=== PATIENT | male | born 1960 | race Caucasian/White ===

== ENCOUNTER 2017-06-09 20:10 | Emergency (ER) | payer MEDICAID, OTHER ==
[~2017-06-09] VITALS: Ht 160 cm; Wt 70.0 kg
[2017-06-09 20:11] VITALS: BP 99/62; PULSE 61; RESP 16; TEMP 98; O2SAT 96
--- NOTE | 2017-06-09 20:38 | PD ---
HPI Chief Complaint: Altered Mental Status Time Seen by Provider: 20:26 Travel History International Travel<30 days: No Contact w/Intl Traveler<30days: No Traveled to known affect area: No History of Present Illness HPI This is a 56-year-old male who presents with his daughter for evaluation of behavioral disturbance. She reports that he has a history of dementia, bipolar disorder, hepatitis C, coronary artery disease, seizures, CVA. She reports that for the past several hours the patient has been acting combative and saying rude things, falling asleep inappropriately. She reports that he has had similar episodes of behavioral disturbance multiple times in the past, previously she would bring him to hospitals in [facility] when he had similar outbursts however recently they relocated from [facility] to [place]. She is unaware of any illicit drug or alcohol use on the part of the patient. She is uncertain whether or not he has been faithful with his medication regimen. The medications that she is aware of him being prescribed are BuSpar, Seroquel, trazodone, baclofen as well as an unknown seizure medication and an unknown blood pressure medication. [facility] History is limited to the above information as the patient is generally uncooperative and verbally abusive. PFSH Social History Tobacco Use: Yes Allergies-Medications (Allergen,Severity, Reaction): Coded Allergies: acetaminophen (Verified Adverse Reaction, Unknown, LIVER, 06/09/17) Reported Meds & Prescriptions Reported Meds & Active Scripts Active Reported Omeprazole 20 Mg Tab 20 Mg PO DAILY Simvastatin 40 Mg Tab 40 Mg PO HS [hydroyxine pamoate] 25 PO HS Lisinopril 10 Mg Tab 10 Mg PO DAILY Duloxetine DR (Duloxetine HCl) 30 Mg Capdr 30 Mg PO DAILY Buspirone (Buspirone HCl) 10 Mg Tab 20 Mg PO TID Baclofen 10 Mg Tab 10 Mg PO QID Seroquel (Quetiapine Fumarate) 400 Mg Tab 400 Mg PO HS Atenolol 25 Mg Tab 25 Mg PO DAILY Trazodone (Trazodone HCl) 100 Mg Tablet 100 Mg PO HS Review of Systems ROS Limitations: Uncooperative, Refused Except as stated in HPI: all other systems reviewed are Neg Physical Exam Exam Limitations: Uncooperative, Refused Narrative GENERAL: This is a somewhat disheveled-appearing male who is in no acute distress. SKIN: Warm and dry. HEAD: Atraumatic. Normocephalic. EYES: Pupils equal and round. No scleral icterus. No injection or drainage. ENT: No nasal bleeding or discharge. Mucous membranes pink and moist. NECK: Trachea midline. No JVD. CARDIOVASCULAR: Regular rate and rhythm. No murmur appreciated. RESPIRATORY: No accessory muscle use. Clear to auscultation. Breath sounds equal bilaterally. GASTROINTESTINAL: Abdomen soft, non-tender, nondistended. Hepatic and splenic margins not palpable. MUSCULOSKELETAL: No obvious deformities. No clubbing. No cyanosis. No edema. NEUROLOGICAL: Awake and alert. No obvious cranial nerve deficits. Motor grossly within normal limits. Normal speech. PSYCHIATRIC: Insight and judgment appear impaired. Data Data Last Documented VS Vital Signs Date Time Temp Pulse Resp B/P (MAP) Pulse Ox O2 Delivery O2 Flow Rate FiO2 06/09/17 21:21 66 18 130/86 (101) 96 Room Air 06/09/17 20:11 98.0 Orders Orders Complete Blood Count With Diff (06/09/17 20:33) Comprehensive Metabolic Panel (06/09/17 20:33) Iv Access Insert/Monitor (06/09/17 20:33) Drug Screen, Random Urine (06/09/17 20:33) Alcohol (Ethanol) (06/09/17 20:33) Lorazepam Inj (Ativan Inj) (06/09/17 20:45) Diphenhydramine Inj (Benadryl Inj) (06/09/17 20:45) Urinalysis - C+S If Indicated (06/09/17 23:21) Ed Discharge Order (06/10/17 06:01) Labs Laboratory Tests Test 06/09/17 21:50 White Blood Count 9.0 TH/MM3 Red Blood Count 5.75 MIL/MM3 Hemoglobin 16.9 GM/DL Hematocrit 50.6 % Mean Corpuscular Volume 87.9 FL Mean Corpuscular Hemoglobin 29.4 PG Mean Corpuscular Hemoglobin Concent 33.4 % Red Cell Distribution Width 14.8 % Platelet Count 181 TH/MM3 Mean Platelet Volume 8.6 FL Neutrophils (%) (Auto) 65.8 % Lymphocytes (%) (Auto) 21.6 % Monocytes (%) (Auto) 9.6 % Eosinophils (%) (Auto) 2.6 % Basophils (%) (Auto) 0.4 % Neutrophils # (Auto) 5.9 TH/MM3 Lymphocytes # (Auto) 1.9 TH/MM3 Monocytes # (Auto) 0.9 TH/MM3 Eosinophils # (Auto) 0.2 TH/MM3 Basophils # (Auto) 0.0 TH/MM3 CBC Comment DIFF FINAL Differential Comment Blood Urea Nitrogen 17 MG/DL Creatinine 1.25 MG/DL Random Glucose 94 MG/DL Total Protein 9.3 GM/DL Albumin 4.8 GM/DL Calcium Level 9.8 MG/DL Alkaline Phosphatase 110 U/L Aspartate Amino Transf (AST/SGOT) 42 U/L Alanine Aminotransferase (ALT/SGPT) 69 U/L Total Bilirubin 0.3 MG/DL Sodium Level 136 MEQ/L Potassium Level 4.4 MEQ/L Chloride Level 102 MEQ/L Carbon Dioxide Level 28.7 MEQ/L Anion Gap 5 MEQ/L Estimat Glomerular Filtration Rate 60 ML/MIN Ethyl Alcohol Level LESS THAN 3 MG/DL MDM Medical Decision Making Medical Screen Exam Complete: Yes Emergency Medical Condition: Yes Medical Record Reviewed: Yes Differential Diagnosis Dementia with behavioral disturbance, acute psychosis, substance induced mood disorder Narrative Course 56-year-old male with reported history of dementia presents with behavioral outbursts which started today. Plan is for basic lab work. He required the administration of Ativan and Benadryl for sedative purposes. Initially CT the brain was ordered however based on the history this appears to be more of a chronic issue and it was canceled. Mental health screening discussed with the patient. Psychiatric screen ordered. 0600: The patient is now awake, alert, answering questions appropriately and is requesting to leave. He reports that he thinks that his medications made it made him feel "loopy" last night but now they have worn off he is feeling normal and would like to leave. He remembers the events of yesterday. He remembers that his daughter dropped him off here because he was acting agitated. He attempted to call his daughter however, as it is 6 in the morning , she did not answer. The patient certainly does not meet olivares act criteria at this time and he does not want to remain here on a voluntary basis and therefore he will be discharged home. We will attempt to obtain a taxi pass for him. Diagnosis Primary Impression: Medication side effect Additional Instructions: Establish care with a local primary care physician that can help manage your medications and chronic medical conditions. Return for any emergent medical conditions. Med/Other Pt SpecificInfo: No Change to Meds Disposition: 01 DISCHARGE HOME Condition: Stable Eros Gaviria Jun 09, 2017 20:38
[2017-06-09] MEDS ORDERED: LORazepam 2 MG/ML VIAL IM ONE (20:45)
[2017-06-09] MEDS ORDERED: diphenhydrAMINE HCL 50 MG/ML VIAL IM ONE (20:45)
[2017-06-09] MEDS ORDERED: OMEP20TA93 PO (20:58)
[2017-06-09] MEDS ORDERED: SERO400T PO (20:58)
[2017-06-09] MEDS ORDERED: TRAZ100T10 PO (20:58)
[2017-06-09] MEDS ORDERED: BACL10TA PO (20:58)
[2017-06-09] MEDS ORDERED: DULO1CAP2 PO (20:58)
[2017-06-09] MEDS ORDERED: BUSP10TA PO (20:58)
[2017-06-09] MEDS ORDERED: LISI10TA3 PO (20:58)
[2017-06-09] MEDS ORDERED: ATEN25TA PO (20:58)
[2017-06-09] MEDS ORDERED: HYDROXYZINE PAMOATE PO (20:58)
[2017-06-09] MEDS ORDERED: SIMV40TA PO (20:58)
--- NOTE | 2017-06-09 21:06 | PD ---
Physical Exam Date Seen by Provider: Jun 09, 2017 Narrative This patient brought in by his daughter for acutely altered mental status and behavioral disturbance. He has a history of similar behavior in the past. He reportedly has some sort of underlying dementia. He has reportedly been verbally abusive with other staff members. Data Data Last Documented VS Vital Signs Date Time Temp Pulse Resp B/P (MAP) Pulse Ox O2 Delivery O2 Flow Rate FiO2 06/09/17 20:58 18 06/09/17 20:11 98.0 61 99/62 (74) 96 Room Air Orders Orders Ammonia (06/09/17 20:33) Complete Blood Count With Diff (06/09/17 20:33) Comprehensive Metabolic Panel (06/09/17 20:33) Urinalysis - C+S If Indicated (06/09/17 20:33) Ct Brain W/O Iv Contrast(Rout) (06/09/17 20:33) Iv Access Insert/Monitor (06/09/17 20:33) Drug Screen, Random Urine (06/09/17 20:33) Alcohol (Ethanol) (06/09/17 20:33) Lorazepam Inj (Ativan Inj) (06/09/17 20:45) Diphenhydramine Inj (Benadryl Inj) (06/09/17 20:45) MDM Supervised Visit with IGGY: Yes Narrative Course I, Dr. Juarez, have reviewed the advance practice practitioner's documentation and am in agreement, met with the patient face to face, made the diagnosis, and the medical decision making was done by me. *My assessment and Findings: Patient is lying on the stretcher with his eyes closed. He does not respond to me when I in and introduced myself to him. He is noted to be rhythmically moving his right ankle. He does not appear to be in any distress. Please see Eros Gaviria PA-C's note for results of laboratory and radiographic evaluation, ED course, final diagnosis and disposition Zenaida Juarez MD Jun 09, 2017 21:06
[2017-06-09 21:21] VITALS: BP 130/86; PULSE 66; RESP 18; O2SAT 96
[2017-06-09 22:49] LABS: AUTOMATED NEUTROPHIL # 5.9 TH/MM3 (1.8-7.7); BASOPHIL % 0.4 % (0.0-2.0); EOSINOPHIL # 0.2 TH/MM3 (0-0.4); EOSINOPHIL % 2.6 % (0.0-4.0); HEMATOCRIT 50.6 % (39.0-51.0); HEMOGLOBIN 16.9 GM/DL (13.0-17.0); LYMPH % 21.6 % (9.0-44.0); LYMPHOCYTE # 1.9 TH/MM3 (1.0-4.8); MEAN CELL VOLUME 87.9 FL (80.0-100.0); MEAN CORPUSCULAR HEMOGLOBIN 29.4 PG (27.0-34.0); MEAN CORPUSCULAR HGB CONC 33.4 % (32.0-36.0); MEAN PLATELET VOLUME 8.6 FL (7.0-11.0); MONO % 9.6 % (0.0-8.0); MONOCYTE # 0.9 TH/MM3 (0-0.9); NEUT % 65.8 % (16.0-70.0); PLATELET COUNT 181 TH/MM3 (150-450); RED BLOOD COUNT 5.75 MIL/MM3 (4.50-5.90); RED CELL DISTRIBUTION WIDTH 14.8 % (11.6-17.2)
[2017-06-09 23:16] LABS: ALBUMIN 4.8 GM/DL (3.4-5.0); ALT (GPT) 69 U/L (12-78); AST (GOT) 42 U/L (15-37); BICARBONATE 28.7 MEQ/L (21.0-32.0); BLOOD UREA NITROGEN 17 MG/DL (7-18); CALCIUM 9.8 MG/DL (8.5-10.1); CHLORIDE 102 MEQ/L (98-107); CREATININE 1.25 MG/DL (0.60-1.30); GLOMERULAR FILTRATION RATE 60 ML/MIN (>89); GLUCOSE,RANDOM 94 MG/DL (74-106); SODIUM (NA) 136 MEQ/L (136-145)
[2017-06-09 23:19] LABS: ALKALINE PHOSPHATASE 110 U/L (45-117); TOTAL BILIRUBIN ADULT 0.3 MG/DL (0.2-1.0); TOTAL PROTEIN 9.3 GM/DL (6.4-8.2)
[2017-06-12] MEDS ORDERED: VIST25CA PO (10:34)
== END 2017-06-10 06:39 | disposition home or self-care (01) ==
LOC: NEPD 20:10
DX: F03.91 Unspecified dementia, unspecified severity, with behavioral disturbance (principal); I25.10 Atherosclerotic heart disease of native coronary artery without angina pectoris; B19.20 Unspecified viral hepatitis C without hepatic coma; F31.9 Bipolar disorder, unspecified; Z72.0 Tobacco use; Z79.899 Other long term (current) drug therapy
CPT/HCPCS: 80053; 80307; 85025; 96372; 99284; J1200; J2060

== ENCOUNTER 2017-07-04 12:13 | Observation (INO) | payer MEDICAID ==
[~2017-07-04] VITALS: Ht 175.3 cm; Wt 80.0 kg
[2017-07-04] VITALS (7 sets, daily range): BP systolic 114–163; BP diastolic 70–105; PULSE 60–70; RESP 12–26; TEMP 97.6–97.9; O2SAT 95–99
[~2017-07-04 12:13] MED LIST: ATEN25TA PO; BACL10TA PO; BUSP10TA PO; DULO1CAP2 PO; LISI10TA3 PO; OMEP20TA93 PO; SERO400T PO; SIMV40TA PO; TRAZ100T10 PO; VIST25CA PO
[2017-07-04] MEDS ORDERED: SODIUM CHLORIDE 0.9% FLUSH 10 ML FLUSH IV FLUSH PRN (14:15)
--- NOTE | 2017-07-04 14:25 | PD ---
HPI Chief Complaint: Altered Mental Status Time Seen by Provider: 14:06 Travel History International Travel<30 days: No Contact w/Intl Traveler<30days: No Traveled to known affect area: No History of Present Illness HPI Patient is a 56-year-old male presenting to emergency department via [facility] for evaluation of altered mental status. Per family members report patient was arranging lawn furniture randomly. Patient is a poor historian, per medical records patient has a baseline dementia, he was here in May for behavioral disturbances. There are no family members present to obtain a more thorough history from. Patient appears startled and confused. PFSH Past Medical History Alzheimer's Disease: Yes Bipolar Disorder: Yes Anxiety: Yes Depression: Yes Cardiovascular Problems: Yes Cerebrovascular Accident: Yes Hepatitis: Yes (hep c) Hypertension: Yes Psychiatric: Yes Seizures: Yes Past Surgical History Cardiac Surgery: Yes Coronary Artery Bypass Graft: Yes (double bypass) Social History Alcohol Use: No Tobacco Use: Yes Substance Use: No Allergies-Medications (Allergen,Severity, Reaction): Coded Allergies: acetaminophen (Verified Adverse Reaction, Unknown, LIVER, 07/04/17) Reported Meds & Prescriptions Reported Meds & Active Scripts Active Reported Proair Hfa 8.5 GM Inh (Albuterol Sulfate) 90 Mcg/Act Aer 2 Puff INH Q4HR PRN 108 mcg/actuation Vistaril (Hydroxyzine Pamoate) 25 Mg Cap 50 Mg PO HS Omeprazole 20 Mg Tab 20 Mg PO DAILY Simvastatin 40 Mg Tab 40 Mg PO HS Lisinopril 10 Mg Tab 10 Mg PO DAILY Duloxetine DR (Duloxetine HCl) 30 Mg Capdr 30 Mg PO DAILY Buspirone (Buspirone HCl) 10 Mg Tab 20 Mg PO TID Baclofen 10 Mg Tab 10 Mg PO QID Seroquel (Quetiapine Fumarate) 400 Mg Tab 400 Mg PO HS Atenolol 25 Mg Tab 25 Mg PO DAILY Trazodone (Trazodone HCl) 100 Mg Tablet 100 Mg PO HS Review of Systems ROS Limitations: Poor Historian Except as stated in HPI: all other systems reviewed are Neg Physical Exam Narrative GENERAL: Well-developed, well-nourished, alert male. SKIN: Warm and dry. HEAD: Atraumatic. Normocephalic. EYES: Pupils equal and round. No scleral icterus. No injection or drainage. ENT: No nasal bleeding or discharge. Mucous membranes pink and moist. NECK: Trachea midline. No JVD. CARDIOVASCULAR: Regular rate and rhythm. RESPIRATORY: No accessory muscle use. Clear to auscultation. Breath sounds equal bilaterally. GASTROINTESTINAL: Abdomen soft, non-tender, nondistended. Hepatic and splenic margins not palpable. MUSCULOSKELETAL: Extremities without clubbing, cyanosis, or edema. No obvious deformities. NEUROLOGICAL: Awake and alert. No obvious cranial nerve deficits. Motor grossly within normal limits. Five out of 5 muscle strength in the arms and legs. Normal speech. PSYCHIATRIC: Appropriate mood and affect; insight and judgment normal. Data Data Last Documented VS Vital Signs Date Time Temp Pulse Resp B/P (MAP) Pulse Ox O2 Delivery O2 Flow Rate FiO2 07/04/17 16:30 60 12 117/70 (86) 98 Room Air 07/04/17 12:42 97.9 Orders Orders Urinalysis - C+S If Indicated (07/04/17 13:08) Drug Screen, Random Urine (07/04/17 13:08) Cbc No Diff, Includes Plts (07/04/17 14:15) Comprehensive Metabolic Panel (07/04/17 14:15) Ammonia (07/04/17 14:15) Thyroid Stimulating Hormone (07/04/17 14:15) Ct Brain W/O Iv Contrast(Rout) (07/04/17 14:15) Blood Glucose (07/04/17 14:15) Ecg Monitoring (07/04/17 14:15) Iv Access Insert/Monitor (07/04/17 14:15) Oximetry (07/04/17 14:15) Sodium Chloride 0.9% Flush (Ns Flush) (07/04/17 14:15) Admit Order (Ed Use Only) (07/04/17 17:03) Labs Laboratory Tests Test 07/04/17 14:50 07/04/17 15:20 White Blood Count 7.3 TH/MM3 Red Blood Count 5.12 MIL/MM3 Hemoglobin 15.5 GM/DL Hematocrit 44.5 % Mean Corpuscular Volume 86.8 FL Mean Corpuscular Hemoglobin 30.2 PG Mean Corpuscular Hemoglobin Concent 34.8 % Red Cell Distribution Width 14.5 % Platelet Count 188 TH/MM3 Mean Platelet Volume 8.3 FL Blood Urea Nitrogen 14 MG/DL Creatinine 1.09 MG/DL Random Glucose 86 MG/DL Total Protein 8.6 GM/DL Albumin 4.5 GM/DL Calcium Level 9.4 MG/DL Alkaline Phosphatase 117 U/L Aspartate Amino Transf (AST/SGOT) 38 U/L Alanine Aminotransferase (ALT/SGPT) 67 U/L Total Bilirubin 0.4 MG/DL Sodium Level 137 MEQ/L Potassium Level 4.4 MEQ/L Chloride Level 104 MEQ/L Carbon Dioxide Level 25.3 MEQ/L Anion Gap 8 MEQ/L Estimat Glomerular Filtration Rate 70 ML/MIN Ammonia 33 MCMOL/L Thyroid Stimulating Hormone 3rd Gen 1.220 uIU/ML Urine Color LIGHT-YELLOW Urine Turbidity CLEAR Urine pH 6.0 Urine Specific [place] 1.009 Urine Protein TRACE mg/dL Urine Glucose (UA) NEG mg/dL Urine Ketones NEG mg/dL Urine Occult Blood NEG Urine Nitrite NEG Urine Bilirubin NEG Urine Urobilinogen LESS THAN 2.0 MG/DL Urine Leukocyte Esterase NEG Urine RBC LESS THAN 1 /hpf Urine WBC LESS THAN 1 /hpf Microscopic Urinalysis Comment CULT NOT INDICATED Urine Opiates Screen NEG Urine Barbiturates Screen NEG Urine Amphetamines Screen NEG Urine Benzodiazepines Screen NEG Urine Cocaine Screen NEG Urine Cannabinoids Screen NEG MDM Medical Decision Making Medical Screen Exam Complete: Yes Emergency Medical Condition: Yes Medical Record Reviewed: Yes Interpretation(s) Last Impressions Head CT 07/04/17 1415 Signed Impressions: Service Date/Time: June 15:44 - CONCLUSION: Normal examination except for 3.8 cm area of encephalomalacia in the right parietal region. Connor Pollock MD Laboratory Tests Test 07/04/17 14:50 07/04/17 15:20 White Blood Count 7.3 TH/MM3 Red Blood Count 5.12 MIL/MM3 Hemoglobin 15.5 GM/DL Hematocrit 44.5 % Mean Corpuscular Volume 86.8 FL Mean Corpuscular Hemoglobin 30.2 PG Mean Corpuscular Hemoglobin Concent 34.8 % Red Cell Distribution Width 14.5 % Platelet Count 188 TH/MM3 Mean Platelet Volume 8.3 FL Blood Urea Nitrogen 14 MG/DL Creatinine 1.09 MG/DL Random Glucose 86 MG/DL Total Protein 8.6 GM/DL Albumin 4.5 GM/DL Calcium Level 9.4 MG/DL Alkaline Phosphatase 117 U/L Aspartate Amino Transf (AST/SGOT) 38 U/L Alanine Aminotransferase (ALT/SGPT) 67 U/L Total Bilirubin 0.4 MG/DL Sodium Level 137 MEQ/L Potassium Level 4.4 MEQ/L Chloride Level 104 MEQ/L Carbon Dioxide Level 25.3 MEQ/L Anion Gap 8 MEQ/L Estimat Glomerular Filtration Rate 70 ML/MIN Ammonia 33 MCMOL/L Thyroid Stimulating Hormone 3rd Gen 1.220 uIU/ML Urine Color LIGHT-YELLOW Urine Turbidity CLEAR Urine pH 6.0 Urine Specific [place] 1.009 Urine Protein TRACE mg/dL Urine Glucose (UA) NEG mg/dL Urine Ketones NEG mg/dL Urine Occult Blood NEG Urine Nitrite NEG Urine Bilirubin NEG Urine Urobilinogen LESS THAN 2.0 MG/DL Urine Leukocyte Esterase NEG Urine RBC LESS THAN 1 /hpf Urine WBC LESS THAN 1 /hpf Microscopic Urinalysis Comment CULT NOT INDICATED Urine Opiates Screen NEG Urine Barbiturates Screen NEG Urine Amphetamines Screen NEG Urine Benzodiazepines Screen NEG Urine Cocaine Screen NEG Urine Cannabinoids Screen NEG Vital Signs Date Time Temp Pulse Resp B/P (MAP) Pulse Ox O2 Delivery O2 Flow Rate FiO2 07/04/17 12:42 97.9 70 18 146/85 (105) 98 Differential Diagnosis Psychosis versus dementia versus metabolic abdomen only versus substance abuse versus other Narrative Course Patient is a 56-year-old male presenting to emergency for evaluation of altered mental status. No family is present to provide historical details. Patient's vital signs are stable, he appears fidgety. He knows what day it is and that he is in the hospital. Labs and imaging ordered and pending. Medical records reviewed. A 16 Kinyarwanda urinary catheter was placed under sterile conditions. 1200 cc of clear yellow urine drained. Urine sent for urinalysis and urine drug screen. Urine drug screen is negative, CBC is unremarkable, chemistry with no acute findings. Ammonia 33, TSH 1.22. Urinalysis is unremarkable. CT scan of the brain is normal except for 3.8 cm area of encephalomalacia in the right parietal region. In an attempt to send patient home with a urinary leg bag, he was educated on what care a urinary leg bag would entail. Patient was unable to repeat or verbalized understanding of instructions. Attempting to contact the patient's family. At this time patient is unsafe for discharge and will be admitted under observation. Discussed with Dr. Dahl who accepted admission. Admit orders placed. Patient has a sitter at bedside for safety. Diagnosis Primary Impression: Urinary retention Additional Impression: Cognitive deficits Admitting Information Admitting Physician Requests: Observation Condition: Stable Kaylah Carbajal Jul 04, 2017 14:25
[2017-07-04 15:08] LABS: HEMATOCRIT 44.5 % (39.0-51.0); HEMOGLOBIN 15.5 GM/DL (13.0-17.0); MEAN CELL VOLUME 86.8 FL (80.0-100.0); MEAN CORPUSCULAR HEMOGLOBIN 30.2 PG (27.0-34.0); MEAN CORPUSCULAR HGB CONC 34.8 % (32.0-36.0); MEAN PLATELET VOLUME 8.3 FL (7.0-11.0); PLATELET COUNT 188 TH/MM3 (150-450); RED BLOOD COUNT 5.12 MIL/MM3 (4.50-5.90); RED CELL DISTRIBUTION WIDTH 14.5 % (11.6-17.2); WHITE BLOOD COUNT 7.3 TH/MM3 (4.0-11.0)
[2017-07-04 15:31] LABS: ALBUMIN 4.5 GM/DL (3.4-5.0); AST (GOT) 38 U/L (15-37); BICARBONATE 25.3 MEQ/L (21.0-32.0); BLOOD UREA NITROGEN 14 MG/DL (7-18); CALCIUM 9.4 MG/DL (8.5-10.1); CHLORIDE 104 MEQ/L (98-107); CREATININE 1.09 MG/DL (0.60-1.30); GLOMERULAR FILTRATION RATE 70 ML/MIN (>89); GLUCOSE,RANDOM 86 MG/DL (74-106); SODIUM (NA) 137 MEQ/L (136-145)
[2017-07-04 15:35] LABS: ALKALINE PHOSPHATASE 117 U/L (45-117); ALT (GPT) 67 U/L (12-78); TOTAL BILIRUBIN ADULT 0.4 MG/DL (0.2-1.0); TOTAL PROTEIN 8.6 GM/DL (6.4-8.2)
[2017-07-04 15:53] LABS: BILIRUBIN, URINE NEG (NEG); BLOOD, URINE NEG (NEG); GLUCOSE,URINE NEG (NEG); KETONE, URINE NEG (NEG); NITRITE,URINE NEG (NEG); URINE COLOR LIGHT-YELLOW (YELLW/STRAW); URINE LEUKOCYTE ESTERASE NEG (NEG)
[2017-07-04] MEDS ORDERED: ALBUAER3 INH (16:03)
--- NOTE | 2017-07-04 16:03 | RADRPT ---
EXAM DATE/TIME: 07/04/2017 15:44 [facility] COMPARISON: No previous studies available for comparison. INDICATIONS : Confusion RADIATION DOSE: 56.35 CTDIvol (mGy) MEDICAL HISTORY : Alzheimer's Seizures. Cardiovascular disease SURGICAL HISTORY : None. ENCOUNTER: Initial ACUITY: 1 day PAIN SCALE: Non-responsive LOCATION: cranial TECHNIQUE: Multiple contiguous axial images were obtained of the head. Using automated exposure control and adj ustment of the mA and/or kV according to patient size, radiation dose was kept as low as reasonably a chievable to obtain optimal diagnostic quality images. DICOM format image data is available electro nically for review and comparison. FINDINGS: CEREBRUM: Area of encephalomalacia in the high right parietal region. The ventricles are normal for age. No evidence of midline shift, mass lesion, hemorrhage or acute infarction. No extra-axial fluid collect ions are seen. POSTERIOR FOSSA: The cerebellum and brainstem are intact. The 4th ventricle is midline. The cerebellopontine angle i s unremarkable. EXTRACRANIAL: The visualized portion of the orbits is intact. SKULL: The calvaria is intact. No evidence of skull fracture. CONCLUSION: Normal examination except for 3.8 cm area of encephalomalacia in the right parietal region. Connor Pollock MD on July 04, 2017 at 15:59 Board Certified Radiologist. This report was verified electronically.
--- NOTE | 2017-07-04 16:36 | PD ---
Data Data Last Documented VS Vital Signs Date Time Temp Pulse Resp B/P (MAP) Pulse Ox O2 Delivery O2 Flow Rate FiO2 07/04/17 16:30 60 12 117/70 (86) 98 Room Air 07/04/17 12:42 97.9 Orders Orders Urinalysis - C+S If Indicated (07/04/17 13:08) Drug Screen, Random Urine (07/04/17 13:08) Cbc No Diff, Includes Plts (07/04/17 14:15) Comprehensive Metabolic Panel (07/04/17 14:15) Ammonia (07/04/17 14:15) Thyroid Stimulating Hormone (07/04/17 14:15) Ct Brain W/O Iv Contrast(Rout) (07/04/17 14:15) Blood Glucose (07/04/17 14:15) Ecg Monitoring (07/04/17 14:15) Iv Access Insert/Monitor (07/04/17 14:15) Oximetry (07/04/17 14:15) Sodium Chloride 0.9% Flush (Ns Flush) (07/04/17 14:15) Admit Order (Ed Use Only) (07/04/17 17:03) Labs Laboratory Tests Test 07/04/17 14:50 07/04/17 15:20 White Blood Count 7.3 TH/MM3 Red Blood Count 5.12 MIL/MM3 Hemoglobin 15.5 GM/DL Hematocrit 44.5 % Mean Corpuscular Volume 86.8 FL Mean Corpuscular Hemoglobin 30.2 PG Mean Corpuscular Hemoglobin Concent 34.8 % Red Cell Distribution Width 14.5 % Platelet Count 188 TH/MM3 Mean Platelet Volume 8.3 FL Blood Urea Nitrogen 14 MG/DL Creatinine 1.09 MG/DL Random Glucose 86 MG/DL Total Protein 8.6 GM/DL Albumin 4.5 GM/DL Calcium Level 9.4 MG/DL Alkaline Phosphatase 117 U/L Aspartate Amino Transf (AST/SGOT) 38 U/L Alanine Aminotransferase (ALT/SGPT) 67 U/L Total Bilirubin 0.4 MG/DL Sodium Level 137 MEQ/L Potassium Level 4.4 MEQ/L Chloride Level 104 MEQ/L Carbon Dioxide Level 25.3 MEQ/L Anion Gap 8 MEQ/L Estimat Glomerular Filtration Rate 70 ML/MIN Ammonia 33 MCMOL/L Vitamin B12 Level 387 PG/ML Thyroid Stimulating Hormone 3rd Gen 1.220 uIU/ML Urine Color LIGHT-YELLOW Urine Turbidity CLEAR Urine pH 6.0 Urine Specific [place] 1.009 Urine Protein TRACE mg/dL Urine Glucose (UA) NEG mg/dL Urine Ketones NEG mg/dL Urine Occult Blood NEG Urine Nitrite NEG Urine Bilirubin NEG Urine Urobilinogen LESS THAN 2.0 MG/DL Urine Leukocyte Esterase NEG Urine RBC LESS THAN 1 /hpf Urine WBC LESS THAN 1 /hpf Microscopic Urinalysis Comment CULT NOT INDICATED Urine Opiates Screen NEG Urine Barbiturates Screen NEG Urine Amphetamines Screen NEG Urine Benzodiazepines Screen NEG Urine Cocaine Screen NEG Urine Cannabinoids Screen NEG MDM Medical Record Reviewed: Yes Supervised Visit with IGGY: Yes Narrative Course I, Dr. Witt, have reviewed the advance practice practitioner's documentation and am in agreement, met with the patient face to face, made the diagnosis, and the medical decision making was done by me. *My assessment and Findings: CBC & BMP Diagram 07/04/17 14:50 Total Protein 8.6 H, Albumin 4.5, Calcium Level 9.4, Alkaline Phosphatase 117, Aspartate Amino Transf (AST/SGOT) 38 H, Alanine Aminotransferase (ALT/SGPT) 67, Total Bilirubin 0.4 The patient had urinary retention which was unexpected based on the presentation. A Shirley catheter placed. Due to altered mental status of unknown etiology the patient will be kept here for further diagnostic evaluation. Keith Witt MD Jul 04, 2017 16:36
[2017-07-04] MEDS ORDERED: ONDANSETRON HCL 4 MG/2 ML VIAL IVP PRN (17:15)
[2017-07-04] MEDS ORDERED: SENNOSIDES 8.6 MG TAB PO PRN (17:15)
[2017-07-04] MEDS ORDERED: NALOXONE HCL 0.4 MG/ML AMP IV PUSH PRN (17:15)
[2017-07-04] MEDS ORDERED: LACTULOSE SYRUP 20 GM/30 ML CUP PO PRN (17:15)
[2017-07-04] MEDS ORDERED: BISACODYL 10 MG SUPP RECTAL PRN (17:15)
[2017-07-04] MEDS ORDERED: MAGNESIUM HYDROXIDE SUSP 30 ML CUP PO PRN (17:15)
[2017-07-04] MEDS ORDERED: RESP: ALBUTEROL 2.5 MG/IPRATROPIUM 0.5 MG NEB (PRN) NEB (17:45)
--- NOTE | 2017-07-04 17:56 | HHI.HP ---
HPI Service [facility] Hospitalists Primary Care Physician Unknown Admission Diagnosis Urinary retention, ams Diagnoses: Chief Complaint: Altered mental status Travel History International Travel<30 Days: No Contact w/Intl Traveler <30 Da: No Traveled to Known Affected Are: No History of Present Illness This is a 56-year-old male with past medical history significant for coronary artery disease status post previous CABG, hypertension, hepatitis C, dementia, bipolar disorder, seizure disorder, history of CVA who presents to [facility] ED with altered mental status. Patient is an extremely poor historian and is oriented 1 and is unable to give any meaningful history and no family is at the bedside, therefore history is obtained from review of electronic medical record and discussion with the ED physician. Reportedly, family members were concerned about patient's erratic behavior. In the ED, patient's workup was essentially unremarkable. CT of the head was obtained revealing normal examination except for 3.8 cm area of encephalomalacia in the right parietal region. Laboratory studies were unimpressive. UA is unremarkable. Tox screen was negative. Per the ED physician, Hargrove catheter was placed and 1200 cc of urine was returned. Review of Systems Attempted but unable to complete 10 point review of systems due to patient's cognitive impairment Past Family Social History Past Medical History Dementia Bipolar disorder Hepatitis C Coronary artery disease Seizures History of CVA Past Surgical History CABGx2 Reported Medications Proair Hfa 8.5 GM Inh (Albuterol Sulfate) 90 Mcg/Act Aer 2 Puff INH Q4HR PRN 108 mcg/actuation Vistaril (Hydroxyzine Pamoate) 25 Mg Cap 50 Mg PO HS Omeprazole 20 Mg Tab 20 Mg PO DAILY Simvastatin 40 Mg Tab 40 Mg PO HS Lisinopril 10 Mg Tab 10 Mg PO DAILY Duloxetine DR (Duloxetine HCl) 30 Mg Capdr 30 Mg PO DAILY Buspirone (Buspirone HCl) 10 Mg Tab 20 Mg PO TID Baclofen 10 Mg Tab 10 Mg PO QID Seroquel (Quetiapine Fumarate) 400 Mg Tab 400 Mg PO HS Atenolol 25 Mg Tab 25 Mg PO DAILY Trazodone (Trazodone HCl) 100 Mg Tablet 100 Mg PO HS Allergies: Coded Allergies: acetaminophen (Verified Adverse Reaction, Unknown, LIVER, 07/04/17) Active Ordered Medications Current Medications Medications (Trade) Dose Ordered Sig/Ria Route Start Time Stop Time Status Last Admin (NS Flush) 2 ml UNSCH PRN IV FLUSH 07/04/17 14:15 (Zofran Inj) 4 mg Q6H PRN IVP 07/04/17 17:15 UNV (Narcan Inj) 0.4 mg UNSCH PRN IV PUSH 07/04/17 17:15 UNV (Brooke-Colace) 1 tab BID PO 07/04/17 21:00 UNV (Milk Of Magnesia Liq) 30 ml Q12H PRN PO 07/04/17 17:15 UNV (Senokot) 17.2 mg Q12H PRN PO 07/04/17 17:15 UNV (Dulcolax Supp) 10 mg DAILY PRN RECTAL 07/04/17 17:15 UNV (Lactulose Liq) 30 ml DAILY PRN PO 07/04/17 17:15 UNV (Tenormin) 25 mg DAILY PO 07/05/17 09:00 UNV (Cymbalta Dr) 30 mg DAILY PO 07/05/17 09:00 UNV (Prinivil) 10 mg DAILY PO 07/05/17 09:00 UNV Non-Formulary Medication 20 mg DAILY PO 07/05/17 09:00 UNV Non-Formulary Medication 40 mg HS PO 07/04/17 21:00 UNV Family History Unable to obtain Social History Per review of the medical record, patient has a history of tobacco use. Unable to verify with patient due to cognitive impairment. Able to obtain alcohol or substance use history. Physical Exam Vital Signs Vital Signs Date Time Temp Pulse Resp B/P (MAP) Pulse Ox O2 Delivery O2 Flow Rate FiO2 07/04/17 16:30 60 12 117/70 (86) 98 Room Air 07/04/17 16:15 66 14 133/85 (101) 99 Room Air 07/04/17 14:34 67 12 163/105 (124) 99 Room Air 07/04/17 14:33 98 Room Air 07/04/17 12:42 97.9 70 18 146/85 (105) 98 Physical Exam GENERAL: This is a well-nourished, well-developed disheveled male patient, in no apparent distress. Sitter at the bedside. Patient is awake and alert. Unable to give any meaningful history. Oriented to self only. SKIN: No rashes, ecchymoses or lesions. Cool and dry. HEAD: Atraumatic. Normocephalic. No temporal or scalp tenderness. EYES: Pupils equal round and reactive. Extraocular motions intact. No scleral icterus. No injection or drainage. ENT: Nose without bleeding or purulent drainage. Throat without erythema, tonsillar hypertrophy or exudate. Uvula midline. Airway patent. NECK: Trachea midline. No lymphadenopathy. Supple, nontender, no meningeal signs. CARDIOVASCULAR: Regular rate and rhythm without murmurs, gallops, or rubs. RESPIRATORY: Poor inspiratory effort. Clear to auscultation. Breath sounds equal bilaterally. No wheezes, rales, or rhonchi. GASTROINTESTINAL: Abdomen soft, non-tender, nondistended. No hepato-splenomegaly , or palpable masses. No guarding. GENITOURINARY: Hargrove catheter in place. MUSCULOSKELETAL: Extremities without clubbing, cyanosis, or edema. No joint tenderness, effusion, or edema noted. No calf tenderness. NEUROLOGICAL: Awake and alert. Able to follow simple commands. Oriented to self only. Able to move all extremities spontaneously. Motor and sensory grossly within normal limits. Five out of 5 muscle strength in all muscle groups. [place] speech. PSYCHIATRIC: Inappropriate insight and judgement Laboratory Laboratory Tests Test 07/04/17 14:50 07/04/17 15:20 White Blood Count 7.3 Red Blood Count 5.12 Hemoglobin 15.5 Hematocrit 44.5 Mean Corpuscular Volume 86.8 Mean Corpuscular Hemoglobin 30.2 Mean Corpuscular Hemoglobin Concent 34.8 Red Cell Distribution Width 14.5 Platelet Count 188 Mean Platelet Volume 8.3 Blood Urea Nitrogen 14 Creatinine 1.09 Random Glucose 86 Total Protein 8.6 Albumin 4.5 Calcium Level 9.4 Alkaline Phosphatase 117 Aspartate Amino Transf (AST/SGOT) 38 Alanine Aminotransferase (ALT/SGPT) 67 Total Bilirubin 0.4 Sodium Level 137 Potassium Level 4.4 Chloride Level 104 Carbon Dioxide Level 25.3 Anion Gap 8 Estimat Glomerular Filtration Rate 70 Ammonia 33 Thyroid Stimulating Hormone 3rd Gen 1.220 Urine Color LIGHT-YELLOW Urine Turbidity CLEAR Urine pH 6.0 Urine Specific [place] 1.009 Urine Protein TRACE Urine Glucose (UA) NEG Urine Ketones NEG Urine Occult Blood NEG Urine Nitrite NEG Urine Bilirubin NEG Urine Urobilinogen LESS THAN 2.0 Urine Leukocyte Esterase NEG Urine RBC LESS THAN 1 Urine WBC LESS THAN 1 Microscopic Urinalysis Comment CULT NOT INDICATED Urine Opiates Screen NEG Urine Barbiturates Screen NEG Urine Amphetamines Screen NEG Urine Benzodiazepines Screen NEG Urine Cocaine Screen NEG Urine Cannabinoids Screen NEG Result Diagram: 07/04/17 1450 07/04/17 1450 Imaging Last Impressions Head CT 07/04/17 1415 Signed Impressions: Service Date/Time: June 15:44 - CONCLUSION: Normal examination except for 3.8 cm area of encephalomalacia in the right parietal region. MD Bobby Hurt VTE Risk Assessment Bobby VTE Risk Assessment: No/Low Risk (score <= 1) Bobby Risk Assessment Model Point Value = 1 Point Value = 2 Point Value = 3 Point Value = 5 Age 41-60 Minor surgery BMI > 25 kg/m2 Swollen legs Varicose veins or History of unexplained or recurrent spontaneous Oral contraceptives or hormone replacement Sepsis (< 1 month) Serious lung disease, including pneumonia (< 1 month) Abnormal pulmonary function Acute myocardial infarction Congestive heart failure (< 1 month) History of inflammatory bowel disease Medical patient at bed rest Age 61-74 Arthroscopic surgery Major open surgery (> 45 min) Laparoscopic surgery (> 45 min) Malignancy Confined to bed (> 72 hours) Immobilizing plaster cast Central venous access Age >= 75 History of VTE Family history of VTE Factor V Leiden Prothrombin [id number] Lupus anticoagulant Anticardiolipin antibodies Elevated serum homocysteine Heparin-induced thrombocytopenia Other congenital or acquired thrombophilia Stroke (< 1 month) Elective arthroplasty Hip, pelvis, or leg fracture Acute spinal cord injury (< 1 month) Prophylaxis Regimen Total Risk Factor Score Risk Level Prophylaxis Regimen 0-1 Low Early ambulation 2 Moderate Order ONE of the following: *Sequential Compression Device (SCD) *Heparin 5000 units SQ BID 3-4 Higher Order ONE of the following medications: *Heparin 5000 units SQ TID *Enoxaparin/Lovenox 40 mg SQ daily (WT < 150 kg, CrCl > 30 mL/min) *Enoxaparin/Lovenox 30 mg SQ daily (WT < 150 kg, CrCl > 10-29 mL/min) *Enoxaparin/Lovenox 30 mg SQ BID (WT < 150 kg, CrCl > 30 mL/min) AND/OR *Sequential Compression Device (SCD) 5 or more Highest Order ONE of the following medications: *Heparin 5000 units SQ TID (Preferred with Epidurals) *Enoxaparin/Lovenox 40 mg SQ daily (WT < 150 kg, CrCl > 30 mL/min) *Enoxaparin/Lovenox 30 mg SQ daily (WT < 150 kg, CrCl > 10-29 mL/min) *Enoxaparin/Lovenox 30 mg SQ BID (WT < 150 kg, CrCl > 30 mL/min) AND *Sequential Compression Device (SCD) Assessment and Plan Assessment and Plan 56-year-old male with past medical history significant for urinary artery disease status post previous CABG, hypertension, hepatitis C, dementia, bipolar disorder, seizure disorder, history of CVA who presents to [facility] ED with altered mental status. AMS/encephalopathy History of seizure disorder History of bipolar disorder History of dementia - CT of the head revealed normal examination except for 3.8 cm area of encephalomalacia in the right parietal region, images reviewed by me - UDS negative. UA negative. CBC and chem panel essentially unremarkable - obtain CXR - Consult neurology, appreciate assistance - MRI brain - EEG study - obtain RPR and B12 level - Hold all sedating medications - Seizure and fall precautions - PT/OT eval/tx - Consult case management - sitter Questionable urinary retention - per ED physician, 1200ml urine returned after hargrove catheter placement - obtain renal US - keep hargrove for now, likely d/c after renal US results Hypertension - Controlled at present - Resume patient's home dose of lisinopril 10 mg daily, atenolol 25 mg daily CAD, hx of CABG x 2 - Patient has no cardiac complaints at present - ASA daily Hx of CVA - chronic Ongoing tobaccoism - cessation counseling - Duonebs as needed Hx of Hepatitis C - Unknown history of treatment - Hepatitis profile ordered Dyslipidemia - Resume patient on home dose of statin therapy GERD - Resume on home PPI DVT prophylaxis - Lovenox sq Discussed Condition With ED physician, patient, Dr. Dahl Attending Statement The exam, history, and the medical decision-making described in the above note were completed with the assistance of the mid-level provider. I reviewed and agree with the findings presented. I attest that I had a [id number] encounter with the patient on the same day, and personally performed and documented my assessment and findings in the medical record. Patient brought in by caregiver due to altered mental status. Patient able to tell me his name and the president is. He is unable to me location and date. He does answer questions appropriately. She was recently admitted due to altered mental status. He follows commands and no focal neurological deficits. Patient had no complaints. Caregiver unsure if patient is urinating. In the ED Hargrove catheter was placed and patient had over thousand cc of output. GENERAL: in NAD SKIN: Warm and dry. HEAD: Normocephalic. EYES: No scleral icterus. No injection or drainage. NECK: Supple, trachea midline. No JVD or lymphadenopathy. CARDIOVASCULAR: Regular rate and rhythm without murmurs, gallops, or rubs. RESPIRATORY: Breath sounds equal bilaterally. No accessory muscle use. GASTROINTESTINAL: Abdomen soft, non-tender, nondistended. NEURO AAO X 1. Patient moves all extremities grossly and sensation is intact grossly. He follows commands. Answers questions appropriately. Metabolic encephalopathy/history of seizure disorder/history of bipolar disorder /history dementia -Symptoms seems to be more due to dementia versus psychiatric disorder but will rule out any metabolic etiology. -CT scan of brain does reveal 3.8 cm area of encephalomalacia in the right parietal region. -Labs obtained which were unremarkable. We'll get a chest x-ray. Will also get MRI of the brain and EEG. Obtain RPR and vitamin B12. Also consult neurologist. Ligia Aldana Jul 04, 2017 17:56 Georgette Dahl MD Jul 04, 2017 18:55
[2017-07-04] MEDS ORDERED: SODIUM CHLOR 0.9% 1000 ML INJ 1,000 ML IV SCH (18:00)
--- NOTE | 2017-07-04 18:12 | RADRPT ---
EXAM DATE/TIME: 07/04/2017 17:45 [facility] COMPARISON: No previous studies available for comparison. INDICATIONS : Pulmonary diseaes- Urinary distention. MEDICAL HISTORY : Alzheimer's seizures. cardiovascular disease SURGICAL HISTORY : None. ENCOUNTER: Initial ACUITY: 1 day PAIN SCORE: Non-responsive. LOCATION: Bilateral chest FINDINGS: A single view of the chest demonstrates the lungs to be symmetrically aerated without evidence of mas s, infiltrate or effusion. The cardiomediastinal contours are unremarkable. Corpectomy changes are s een at the thoracolumbar junction. Median sternotomy wires noted. CONCLUSION: No acute disease. Ronak Brandt Jr., MD on July 04, 2017 at 18:10 Board Certified Radiologist. This report was verified electronically.
--- NOTE | 2017-07-04 19:19 | RADRPT ---
EXAM DATE/TIME: 07/04/2017 18:40 [facility] COMPARISON: No previous studies available for comparison. INDICATIONS : Elevated lab values. MEDICAL HISTORY : Stroke. Alzheimer's. Seizures. Hypertension. Depression. Anxiety. Hepatitis C. SURGICAL HISTORY : CABG. Back surgery. ENCOUNTER: Initial ACUITY: 1 day PAIN SCORE: 2/10 LOCATION: Bilateral flank MEASUREMENTS: RIGHT KIDNEY: 9.4 x 3.9 x 4.3 cm LEFT KIDNEY: 10.8 x 4.8 x 5.3 cm FINDINGS: RIGHT KIDNEY: Renal cortex is normal in thickness and echotexture. No hydronephrosis, stone, or mass. LEFT KIDNEY: Renal cortex is normal in thickness and echotexture. No hydronephrosis, stone, or mass. BLADDER: Totally decompressed and a Shirley balloon is present. CONCLUSION: No acute disease. Ronak Brandt Jr., MD on July 04, 2017 at 19:16 Board Certified Radiologist. This report was verified electronically.
[2017-07-04] MEDS ORDERED: ENOXAPARIN SODIUM 30 MG/0.3 ML SYRINGE SQ SCH (20:00)
[2017-07-04] MEDS ORDERED: PRAVASTATIN SOD 80 MG TAB PO SCH (21:00)
[2017-07-05] VITALS (7 sets, daily range): BP systolic 84–120; BP diastolic 51–76; PULSE 64–81; RESP 16–18; TEMP 97.4–98.5; O2SAT 95–97
[2017-07-05] MEDS ORDERED: HALOPERIDOL LACTATE 5 MG/ML AMP IM ONE (00:15)
[2017-07-05] MEDS: DOCUSATE SODIUM 50 MG/SENNA 8.6 MG TAB PO SCH ×2 (00:34→09:00)
[2017-07-05 06:10] LABS: AUTOMATED NEUTROPHIL # 6.1 TH/MM3 (1.8-7.7); BASOPHIL % 0.5 % (0.0-2.0); EOSINOPHIL # 0.1 TH/MM3 (0-0.4); EOSINOPHIL % 1.7 % (0.0-4.0); HEMATOCRIT 40.6 % (39.0-51.0); HEMOGLOBIN 13.9 GM/DL (13.0-17.0); LYMPH % 13.5 % (9.0-44.0); LYMPHOCYTE # 1.1 TH/MM3 (1.0-4.8); MEAN CELL VOLUME 87.5 FL (80.0-100.0); MEAN CORPUSCULAR HGB CONC 34.2 % (32.0-36.0); MEAN PLATELET VOLUME 9.1 FL (7.0-11.0); MONO % 8.9 % (0.0-8.0); MONOCYTE # 0.7 TH/MM3 (0-0.9); NEUT % 75.4 % (16.0-70.0); PLATELET COUNT 186 TH/MM3 (150-450); RED BLOOD COUNT 4.63 MIL/MM3 (4.50-5.90); RED CELL DISTRIBUTION WIDTH 14.5 % (11.6-17.2); WHITE BLOOD COUNT 8.1 TH/MM3 (4.0-11.0)
[2017-07-05] MEDS ORDERED: SODIUM CHLORID 0.9% 500 ML INJ 500 ML IV ONE (06:30)
[2017-07-05 06:41] LABS: ALBUMIN 3.9 GM/DL (3.4-5.0); ALKALINE PHOSPHATASE 102 U/L (45-117); ALT (GPT) 62 U/L (12-78); AST (GOT) 33 U/L (15-37); BICARBONATE 30.9 MEQ/L (21.0-32.0); BLOOD UREA NITROGEN 16 MG/DL (7-18); CALCIUM 9.8 MG/DL (8.5-10.1); CHLORIDE 103 MEQ/L (98-107); CREATININE 1.17 MG/DL (0.60-1.30); GLOMERULAR FILTRATION RATE 65 ML/MIN (>89); GLUCOSE,RANDOM 105 MG/DL (74-106); SODIUM (NA) 140 MEQ/L (136-145); TOTAL BILIRUBIN ADULT 0.3 MG/DL (0.2-1.0); TOTAL PROTEIN 7.3 GM/DL (6.4-8.2)
[2017-07-05] MEDS ORDERED: LISINOPRIL 10 MG TAB PO SCH (09:00)
[2017-07-05] MEDS ORDERED: PANTOPRAZOLE SOD 20 MG DELAYED RELEASE TAB PO SCH (09:00)
[2017-07-05] MEDS ORDERED: carBAMazepine 200 MG TAB PO SCH (09:00)
[2017-07-05] MEDS ORDERED: ASPIRIN EC 81 MG TABEC PO SCH (09:00)
[2017-07-05] MEDS ORDERED: ATENOLOL 25 MG TAB PO SCH (09:00)
[2017-07-05] MEDS ORDERED: DULoxetine HCl DR 30 MG CAP PO SCH (09:00)
[2017-07-05] MEDS ORDERED: PNEUMOCOCCAL POLYVALENT INJ 25 MCG/0.5 ML SYR IM ONE (10:00)
--- NOTE | 2017-07-05 10:18 | RADRPT ---
EXAM DATE/TIME: 07/05/2017 08:38 [facility] COMPARISON: CT BRAIN W/O CONTRAST, July 04, 2017, 15:44. INDICATIONS : Cerebrovascular accident. MEDICAL HISTORY : Hypercholesterolemia. Hypertension. Hepatitis C. Neuropathy. Cerebrovascular accident. Alzheimer's di sease. seizures. bipolar. SURGICAL HISTORY : Double bypass 2007. Right ankle surgery. Back surgery. ENCOUNTER: Initial ACUITY: 1 day PAIN SCORE: 0/10 LOCATION: Bilateral neck PEAK SYSTOLIC VELOCITIES (cm/sec): ICA/CCA RATIO: Right: 1.0 Left: 0.9 ICA: Right: 94 Left: 89 CCA: Right: 90 Left: 102 ECA: Right: 124 Left: 146 VERTEBRAL: Right: 34 antegrade Left: 40 antegrade Elevated flow velocities and ICA/CCA ratios have been found to correlate with increased degrees of vessel stenosis, calculated as percentage of diameter relative to a normal segment of distal ICA/CCA FINDINGS: RIGHT CAROTID: No significant stenosis is visualized. The waveforms are within normal limits. Minimal atherosclerot ic plaquing of the bulb and internal carotid. LEFT CAROTID: No significant stenosis is visualized. The waveforms are within normal limits. Minimal atherosclerot ic plaque in the bulb VERTEBRAL ARTERIES: Antegrade flow is seen in both vertebral arteries. MISCELLANEOUS: None. CONCLUSION: Minimal atherosclerotic changes at bilateral bulge and right internal carotid initial segment. No mariah dence anatomic or physiologic stenosis. Neville Kay MD on July 05, 2017 at 10:13 Board Certified Radiologist. This report was verified electronically.
--- NOTE | 2017-07-05 10:30 | MB ---
cc: ROSANGELA JOHNSON M.D. DATE OF CONSULTATION 07/05/2017 HISTORY OF PRESENT ILLNESS A 56-year-old right-handed man with hypertension, hypercholesterolemia, NM, CABG, one kidney (he says maybe not functioning as well), a stroke in 1999 with loss of conscious, evidently had a right carotid endarterectomy. He has had some spells of jerkiness in 2016 about every two weeks he gets dizzy with slurred speech and then he gets confused. He was brought in because he was arranging lawn furniture randomly. Per the chart he has a history of dementia. I put in a call to his daughter. Unfortunately I got no answer. I left a message. MEDICATIONS Medications at home: 1. ProAir. 2. Vistaril. 3. Omeprazole. 4. Simvastatin. 5. Lisinopril. 6. Duloxetine 30, a day. 7. BuSpar 20, t.i.d. 8. Baclofen 10, q.i.d. 9. Seroquel 400, at bedtime. 10.Atenolol. 11.Trazodone 100, at bedtime. 12.Evidently he was on Keppra at one time, not taking it because he says it was not working. PAST MEDICAL HISTORY 1. Hepatitis C. 2. Bipolar disorder. 3. Seizure disorder. 4. History of stroke. PHYSICAL EXAMINATION VITAL SIGNS: Afebrile. 71, 18, 87/51 to 114/77. NECK: No carotid bruits. There is an old well-healed right CEA scar. HEART: Regular rhythm. I do not detect a murmur. NEUROLOGIC: He is awake and alert, oriented x3. Speech is fluent. He is not aphasic. Visual tellez are full. Extraocular movements are intact without nystagmus. Face symmetric. Tongue is midline. No drift. Normal strength in upper and lower extremities bilaterally. He has a normal gait. LABORATORY CBC is normal. RPR is pending. Urine drug screen was negative. UA normal. Basic metabolic profile normal. LFTs normal. B12 normal. Thyroid normal. IMAGING CAT scan of the brain shows old right infarct. IMPRESSION AND RECOMMENDATIONS Probably having complex partial seizures. He gets aundrea vu and then gets confused. He should be on a seizure med. If the Keppra did not work well for him we could put him on Tegretol 200, b.i.d., could help with his mood somewhat, and would have to have his blood work checked as an outpatient with his regular doctor including BMP, Tegretol level, LFTs, CBC in 5 days. Will check an MRI of the brain and EEG here along with a carotid ultrasound and if those are negative he could be discharged later today. It would be good to get some contact with his family to make sure that he takes his medications properly at home. He should not be driving with a seizure but I think he should be on a seizure medicine. MD NOAM Narvaez/TESS /7:55 AM /10:06 AM
[2017-07-05 14:49] LABS: HEPATITIS A AB IGM NEGATIVE (NEGATIVE); HEPATITIS B CORE AB IGM NEGATIVE (NEGATIVE); HEPATITIS B SURFACE ANTIGEN NEGATIVE (NEGATIVE); HEPATITIS C AB IgG REACTIVE (NEGATIVE)
--- NOTE | 2017-07-05 15:17 | HHI.PR ---
Subjective Remarks Seen earlier today. Was getting EEG, returned and was seen after EEG. In nad alert and oriented x4 , no headache, new motor deficit, change in vision.Patient is feeling better and says he wants to go home says he will leave AMA as he has errands. Discussed with patient at length he however left AMA later . Objective Vitals Vital Signs Date Time Temp Pulse Resp B/P (MAP) Pulse Ox O2 Delivery O2 Flow Rate FiO2 07/05/17 12:00 97.4 71 18 84/54 (64) 95 07/05/17 10:51 95 21 07/05/17 08:00 98.5 81 17 120/76 (91) 96 07/05/17 05:06 97.9 71 17 87/51 (63) 97 07/05/17 04:01 73 07/05/17 00:26 64 07/05/17 00:17 97.8 65 16 105/52 (69) 95 07/04/17 20:51 97.6 69 16 114/77 (89) 95 07/04/17 18:35 07/04/17 17:30 66 26 114/77 (89) 97 Room Air 07/04/17 16:30 60 12 117/70 (86) 98 Room Air 07/04/17 16:15 66 14 133/85 (101) 99 Room Air I/O 07/04/17 07/04/17 07/04/17 07/05/17 07/05/17 07/05/17 07:00 15:00 23:00 07:00 15:00 23:00 Intake Total 500 ml Output Total 1100 ml 400 ml Balance -1100 ml -400 ml 500 ml Intake IV Total 500 ml Output Urine Total 1100 ml 400 ml # Voids 0 Result Diagram: 07/05/17 0503 07/05/17 0503 Imaging Last Impressions Carotid Artery Ultrasound 07/05/17 0801 Signed Impressions: Service Date/Time: Wednesday, July 05, 2017 08:38 - CONCLUSION: Minimal atherosclerotic changes at bilateral bulge and right internal carotid initial segment. No evidence anatomic or physiologic stenosis. Neville Kay MD Head CT 07/04/17 1415 Signed Impressions: Service Date/Time: June 15:44 - CONCLUSION: Normal examination except for 3.8 cm area of encephalomalacia in the right parietal region. Connor A. Sevigny, MD Renal Ultrasound 07/04/17 0000 Signed Impressions: Service Date/Time: June 18:40 - CONCLUSION: No acute disease. Ronak Brandt Jr., MD Chest X-Ray 07/04/17 0000 Signed Impressions: Service Date/Time: June 17:45 - CONCLUSION: No acute disease. Ronak Brandt Jr., MD Objective Remarks GENERAL: This is a well-nourished, well-developed disheveled male patient, in no apparent distress. Sitter at the bedside. Patient is awake and alert. Unable to give any meaningful history. Oriented to self only. CARDIOVASCULAR: Regular rate and rhythm without murmurs, gallops, or rubs. RESPIRATORY: Poor inspiratory effort. Clear to auscultation. Breath sounds equal bilaterally. No wheezes, rales, or rhonchi. GASTROINTESTINAL: Abdomen soft, non-tender, nondistended. No hepato-splenomegaly , or palpable masses. No guarding. GENITOURINARY: Hargrove catheter in place. MUSCULOSKELETAL: Extremities without clubbing, cyanosis, or edema. No joint tenderness, effusion, or edema noted. No calf tenderness. NEUROLOGICAL: Awake and alert x4 . follows commands. Motor and sensory grossly within normal limits. Five out of 5 muscle strength in all muscle groups. Normal speech. A/P Assessment and Plan 56-year-old male with past medical history significant for urinary artery disease status post previous CABG, hypertension, hepatitis C, dementia, bipolar disorder, seizure disorder, history of CVA who presents to [facility] ED with altered mental status. AMS/encephalopathy History of seizure disorder History of bipolar disorder History of dementia - CT of the head revealed normal examination except for 3.8 cm area of encephalomalacia in the right parietal region, images reviewed by me - UDS negative. UA negative. CBC and chem panel essentially unremarkable - obtain CXR - Consult neurology, appreciate assistance - MRI brain pending - EEG study pending - obtain RPR and B12 level - Hold all sedating medications - Seizure and fall precautions - PT/OT eval/tx - Consult case management Questionable urinary retention - per ED physician, 1200ml urine returned after hargrove catheter placement - obtain renal US - keep hargrove for now, likely d/c after renal US results Hypertension - Controlled at present - Resume patient's home dose of lisinopril 10 mg daily, atenolol 25 mg daily CAD, hx of CABG x 2 - Patient has no cardiac complaints at present - ASA daily Hx of CVA - chronic Ongoing tobaccoism - cessation counseling - Duonebs as needed Hx of Hepatitis C - Unknown history of treatment - Hepatitis profile ordered Dyslipidemia - Resume patient on home dose of statin therapy GERD - Resume on home PPI DVT prophylaxis - Lovenox sq Discussed Condition With patient, nurse Patient improved and is back at his baseline. Alert and oriented x4. Discharge Planning Left Anabel Alvarez MD Jul 05, 2017 15:17
--- NOTE | 2017-07-05 18:24 | MG ---
cc: ROSANGELA JOHNSON M.D. Lab No: [id number] Date: Age: 56 Sex: M Race: 56-year-old man with complex partial seizure. Haldol. Atenolol. History of right parietal stroke. A 9 Hz, 60 microvolt symmetric posterior rhythm is noted. I do not see any focal right parietal abnormality. Some bifrontal theta slowing is seen. Photic stimulation is performed without significant posterior driving. Hyperventilation was not performed. IMPRESSION: A normal EEG. No evidence for a focal or diffuse abnormality. Specifically, no right parietal abnormalities were noted. MD NOAM Narvaez/TOM /6:00 PM /6:06 PM
== END 2017-07-05 17:09 | disposition left against medical advice (07) ==
LOC: NEPC 12:13 → NEDA 17:05 → NEPHCDU 18:38
PROVIDERS: ADMIT Hospitalist; ATTEND Hospitalist
DX: R41.82 Altered mental status, unspecified (principal); R33.9 Retention of urine, unspecified; I10 Essential (primary) hypertension; I25.10 Atherosclerotic heart disease of native coronary artery without angina pectoris; K21.9 Gastro-esophageal reflux disease without esophagitis; G30.9 Alzheimer's disease, unspecified; F31.9 Bipolar disorder, unspecified; F02.81 Dementia in other diseases classified elsewhere, unspecified severity, with behavioral disturbance; E78.5 Hyperlipidemia, unspecified; F17.200 Nicotine dependence, unspecified, uncomplicated; K75.9 Inflammatory liver disease, unspecified; G93.89 Other specified disorders of brain; Z79.899 Other long term (current) drug therapy; Z95.1 Presence of aortocoronary bypass graft; Z86.73 Personal history of transient ischemic attack (TIA), and cerebral infarction without residual deficits
CPT/HCPCS: 51702; 96360; 96361; 96372; 99285; G0378; 70450; 71045; 76775; 80053; 80074; 80307; 81001; 82140; 82607; 82948; 84443; 85025; 85027; 85652; 86592; 90732; 93880; 95819; G8987-GP; G8988-GP; J1630; J1650; J7030; J7040

== ENCOUNTER 2017-07-06 15:05 | Inpatient (IN) | payer MEDICAID ==
[~2017-07-06] VITALS: Ht 160 cm; Wt 70.2 kg
[~2017-07-06 15:05] MED LIST changes: +ALBUAER3 INH
[2017-07-06 15:07] VITALS: BP 118/70; PULSE 70; RESP 18; TEMP 98.5; O2SAT 99
[2017-07-06] MEDS ORDERED: SODIUM CHLOR 0.9% 1000 ML INJ 1,000 ML IV SCH (15:43)
[2017-07-06] MEDS ORDERED: SODIUM CHLORIDE 0.9% FLUSH 10 ML FLUSH IV FLUSH PRN ×2 (15:45→19:00)
[2017-07-06 16:16] VITALS: RESP 18; O2SAT 96
[2017-07-06 16:24] LABS: AUTOMATED NEUTROPHIL # 7.4 TH/MM3 (1.8-7.7); BASOPHIL % 0.3 % (0.0-2.0); EOSINOPHIL % 0.2 % (0.0-4.0); HEMATOCRIT 40.3 % (39.0-51.0); HEMOGLOBIN 14.2 GM/DL (13.0-17.0); LYMPH % 11.3 % (9.0-44.0); LYMPHOCYTE # 1.1 TH/MM3 (1.0-4.8); MEAN CELL VOLUME 85.7 FL (80.0-100.0); MEAN CORPUSCULAR HEMOGLOBIN 30.1 PG (27.0-34.0); MEAN CORPUSCULAR HGB CONC 35.1 % (32.0-36.0); MEAN PLATELET VOLUME 8.7 FL (7.0-11.0); MONO % 14.1 % (0.0-8.0); MONOCYTE # 1.4 TH/MM3 (0-0.9); NEUT % 74.1 % (16.0-70.0); PLATELET COUNT 173 TH/MM3 (150-450); RED CELL DISTRIBUTION WIDTH 14.7 % (11.6-17.2)
--- NOTE | 2017-07-06 16:24 | RADRPT ---
EXAM DATE/TIME: 07/06/2017 16:09 [facility] COMPARISON: CHEST SINGLE AP, July 04, 2017, 17:45. INDICATIONS : Shortness of breath. MEDICAL HISTORY : Sarcoma. Cerebrovascular disease. Hypercholesterolemia. Hypertension. Hepatitis C. Neuropathy. Cerebrovascular accident. Alzheimer's disease. seizures. bipolar. SURGICAL HISTORY : Double bypass 2007. Right ankle surgery. Back surgery. ENCOUNTER: Initial ACUITY: 1 day PAIN SCORE: Non-responsive. LOCATION: Bilateral chest FINDINGS: The patient is post median sternotomy. The heart is normal in size. The lungs are clear. Visualized b devika structures are grossly intact. There are postsurgical changes in the thoracolumbar junction. CONCLUSION: 1. No acute cardiopulmonary findings identified. 2. The patient is post median sternotomy. Keith Contreras MD on July 06, 2017 at 16:21 Board Certified Radiologist. This report was verified electronically.
[2017-07-06 16:28] LABS: BILIRUBIN, URINE NEG (NEG); BLOOD, URINE NEG (NEG); GLUCOSE,URINE NEG (NEG); KETONE, URINE NEG (NEG); MUCUS URINE FEW /lpf (OCC); NITRITE,URINE NEG (NEG); PH, URINE 6.5 (5.0-8.5); URINE COLOR YELLOW (YELLW/STRAW); URINE LEUKOCYTE ESTERASE NEG (NEG)
[2017-07-06 16:35] LABS: PROTHROMBIN TIME - PATIENT 10.5 SEC (9.8-11.6)
[2017-07-06 16:50] LABS: ALBUMIN 3.7 GM/DL (3.4-5.0); ALKALINE PHOSPHATASE 97 U/L (45-117); ALT (GPT) 59 U/L (12-78); AST (GOT) 49 U/L (15-37); BICARBONATE 24.6 MEQ/L (21.0-32.0); BLOOD UREA NITROGEN 17 MG/DL (7-18); CALCIUM 8.6 MG/DL (8.5-10.1); CHLORIDE 100 MEQ/L (98-107); CREATININE 1.18 MG/DL (0.60-1.30); GLOMERULAR FILTRATION RATE 64 ML/MIN (>89); GLUCOSE,RANDOM 100 MG/DL (74-106); SODIUM (NA) 134 MEQ/L (136-145); TOTAL BILIRUBIN ADULT 0.5 MG/DL (0.2-1.0); TOTAL PROTEIN 7.8 GM/DL (6.4-8.2); TROPONIN I LESS THAN 0.02 NG/ML (0.02-0.05)
--- NOTE | 2017-07-06 17:34 | PD ---
HPI Chief Complaint: Altered Mental Status Time Seen by Provider: 15:31 Travel History International Travel<30 days: No Contact w/Intl Traveler<30days: No Traveled to known affect area: No History of Present Illness HPI Patient is a 56-year-old male brought in by his daughter due to altered mental status. Patient was here and signed out AMA yesterday. Per daughter, she woke up at noon and he was not acting appropriately, so she brought him in. He is unable to provide any history. PFSH Past Medical History Hx Anticoagulant Therapy: Yes (ASA?) Alzheimer's Disease: Yes Asthma: No Blood Disorders: No Bipolar Disorder: Yes Anxiety: Yes Depression: Yes Heart Rhythm Problems: Yes (murmur?) Cancer: No Cardiovascular Problems: Yes (double bypass 2008/ htn/ high cholestrol/ mumur ? ) High Cholesterol: Yes Chemotherapy: No Chest Pain: No Congestive Heart Failure: No COPD: No Cerebrovascular Accident: Yes Diabetes: No Diminished Hearing: No Endocrine: No Gastrointestinal Disorders: No Genitourinary: No Hepatitis: Yes (hep c) Hypertension: Yes Immune Disorder: No Implanted Vascular Access Dvce: Yes Musculoskeletal: Yes (right ankle sx/ back sx -w/hardware /) Neurologic: Yes (neuropathy) Psychiatric: Yes Reproductive: No Respiratory: Yes (pt uses inhaler for sob) Radiation Therapy: No Seizures: Yes Sleep Apnea: No Thyroid Disease: No Past Surgical History Body Medical Devices: metal hardware in back Cardiac Surgery: Yes Coronary Artery Bypass Graft: Yes (double bypass) Other Surgery: Yes (muscleskeletal, cardiovascular, ) Social History Alcohol Use: No Tobacco Use: Yes (0.5ppd) Substance Use: No Allergies-Medications (Allergen,Severity, Reaction): Coded Allergies: acetaminophen (Verified Adverse Reaction, Unknown, LIVER, 07/06/17) Reported Meds & Prescriptions Reported Meds & Active Scripts Active Reported Proair Hfa 8.5 GM Inh (Albuterol Sulfate) 90 Mcg/Act Aer 2 Puff INH Q4HR PRN 108 mcg/actuation Vistaril (Hydroxyzine Pamoate) 25 Mg Cap 50 Mg PO HS Omeprazole 20 Mg Tab 20 Mg PO DAILY Simvastatin 40 Mg Tab 40 Mg PO HS Lisinopril 10 Mg Tab 10 Mg PO DAILY Duloxetine DR (Duloxetine HCl) 30 Mg Capdr 30 Mg PO DAILY Buspirone (Buspirone HCl) 10 Mg Tab 20 Mg PO TID Baclofen 10 Mg Tab 10 Mg PO QID Seroquel (Quetiapine Fumarate) 400 Mg Tab 400 Mg PO HS Atenolol 25 Mg Tab 25 Mg PO DAILY Trazodone (Trazodone HCl) 100 Mg Tablet 100 Mg PO HS Review of Systems ROS Limitations: Altered Mental Status Physical Exam Narrative GENERAL: Sleeping, but awakens. He does not answer any questions. SKIN: Focused skin assessment warm/dry. HEAD: Atraumatic. Normocephalic. EYES: Pupils equal and round and reactive. No scleral icterus. Extraocular movements intact. ENT: Mucous membranes pink and moist. NECK: Trachea midline. No JVD. CARDIOVASCULAR: Regular rate and rhythm. No murmur appreciated. RESPIRATORY: No accessory muscle use. Clear to auscultation. Breath sounds equal bilaterally. GASTROINTESTINAL: Abdomen soft, non-tender, nondistended. MUSCULOSKELETAL: No obvious deformities. No clubbing. No cyanosis. No edema. NEUROLOGICAL: Lethargic, but awakens easily. Confused. No obvious cranial nerve deficits. Motor grossly within normal limits. Data Data Last Documented VS Vital Signs Date Time Temp Pulse Resp B/P (MAP) Pulse Ox O2 Delivery O2 Flow Rate FiO2 07/06/17 16:16 18 96 Nasal Cannula 2.00 07/06/17 15:33 73 07/06/17 15:07 98.5 Orders Orders Electrocardiogram (07/06/17 15:43) Ammonia (07/06/17 15:43) Complete Blood Count With Diff (07/06/17 15:43) Comprehensive Metabolic Panel (07/06/17 15:43) Prothrombin Time / Inr (Pt) (07/06/17 15:43) Act Partial Throm Time (Ptt) (07/06/17 15:43) Troponin I (07/06/17 15:43) Urinalysis - C+S If Indicated (07/06/17 15:43) Chest, Single Ap (07/06/17 15:43) Ct Brain W/O Iv Contrast(Rout) (07/06/17 15:43) Blood Glucose (07/06/17 15:43) Ecg Monitoring (07/06/17 15:43) Iv Access Insert/Monitor (07/06/17 15:43) Oximetry (07/06/17 15:43) Sodium Chloride 0.9% Flush (Ns Flush) (07/06/17 15:45) Sodium Chlor 0.9% 1000 Ml Inj (Ns 1000 M (07/06/17 15:43) Drug Screen, Random Urine (07/06/17 15:43) Alcohol (Ethanol) (07/06/17 15:43) Lactulose Liq (Lactulose Liq) (07/06/17 17:45) Admit Order (Ed Use Only) (07/06/17 ) Labs Laboratory Tests Test 07/06/17 16:00 White Blood Count 10.0 TH/MM3 Red Blood Count 4.70 MIL/MM3 Hemoglobin 14.2 GM/DL Hematocrit 40.3 % Mean Corpuscular Volume 85.7 FL Mean Corpuscular Hemoglobin 30.1 PG Mean Corpuscular Hemoglobin Concent 35.1 % Red Cell Distribution Width 14.7 % Platelet Count 173 TH/MM3 Mean Platelet Volume 8.7 FL Neutrophils (%) (Auto) 74.1 % Lymphocytes (%) (Auto) 11.3 % Monocytes (%) (Auto) 14.1 % Eosinophils (%) (Auto) 0.2 % Basophils (%) (Auto) 0.3 % Neutrophils # (Auto) 7.4 TH/MM3 Lymphocytes # (Auto) 1.1 TH/MM3 Monocytes # (Auto) 1.4 TH/MM3 Eosinophils # (Auto) 0.0 TH/MM3 Basophils # (Auto) 0.0 TH/MM3 CBC Comment DIFF FINAL Differential Comment Prothrombin Time 10.5 SEC Prothromb Time International Ratio 1.0 RATIO Activated Partial Thromboplast Time 26.7 SEC Urine Color YELLOW Urine Turbidity CLEAR Urine pH 6.5 Urine Specific [place] 1.021 Urine Protein 30 mg/dL Urine Glucose (UA) NEG mg/dL Urine Ketones NEG mg/dL Urine Occult Blood NEG Urine Nitrite NEG Urine Bilirubin NEG Urine Urobilinogen 2.0 MG/DL Urine Leukocyte Esterase NEG Urine RBC LESS THAN 1 /hpf Urine WBC 1 /hpf Urine Mucus FEW /lpf Microscopic Urinalysis Comment CATH-CULT NOT IND Blood Urea Nitrogen 17 MG/DL Creatinine 1.18 MG/DL Random Glucose 100 MG/DL Total Protein 7.8 GM/DL Albumin 3.7 GM/DL Calcium Level 8.6 MG/DL Alkaline Phosphatase 97 U/L Aspartate Amino Transf (AST/SGOT) 49 U/L Alanine Aminotransferase (ALT/SGPT) 59 U/L Total Bilirubin 0.5 MG/DL Sodium Level 134 MEQ/L Potassium Level 4.9 MEQ/L Chloride Level 100 MEQ/L Carbon Dioxide Level 24.6 MEQ/L Anion Gap 9 MEQ/L Estimat Glomerular Filtration Rate 64 ML/MIN Ammonia 58 MCMOL/L Troponin I LESS THAN 0.02 NG/ML Urine Opiates Screen NEG Urine Barbiturates Screen NEG Urine Amphetamines Screen NEG Urine Benzodiazepines Screen NEG Urine Cocaine Screen NEG Urine Cannabinoids Screen POS Ethyl Alcohol Level LESS THAN 3 MG/DL MDM Medical Decision Making Medical Screen Exam Complete: Yes Emergency Medical Condition: Yes Medical Record Reviewed: Yes Interpretation(s) ECG shows normal sinus rhythm at 66, incomplete right bundle-branch block. Differential Diagnosis Encephalopathy versus infection versus overdose Narrative Course Patient is a 56-year-old male who is brought in by his daughter due to altered mental status. Patient is sleeping, but awakens easily. IV established, labs sent. Labs concerning for elevated ammonia level to 58. This is in the 30s [address] head shows no acute abnormalities. Lactulose ordered. Last [address] 07/06/17 1543 Signed Impressions: Service Date/Time: Thursday, July 06, 2017 16:56 - CONCLUSION: 1. Remote right parietal infarct. No change. No midline shift. Felipe Green MD Chest X-Ray 07/06/17 1543 Signed Impressions: Service Date/Time: Thursday, July 06, 2017 16:09 - CONCLUSION: 1. No acute cardiopulmonary findings identified. 2. The patient is post median sternotomy. Keith Contreras MD Patient to be admitted for further management. Diagnosis Primary Impression: Altered mental status Qualified Codes: R41.82 - Altered mental status, unspecified Additional Impression: Hepatic encephalopathy Admitting Information Admitting Physician Requests: Admit Gladys Soto MD Jul 06, 2017 17:34
--- NOTE | 2017-07-06 17:37 | RADRPT ---
EXAM DATE/TIME: 07/06/2017 16:56 [facility] COMPARISON: CT BRAIN W/O CONTRAST, July 04, 2017, 15:44. INDICATIONS : Altered mental status. RADIATION DOSE: 56.35 CTDIvol (mGy) MEDICAL HISTORY : Alzheimer's Seizures. Stroke.Hypertension. SURGICAL HISTORY : CABG ENCOUNTER: Initial ACUITY: 1 day PAIN SCALE: Non-responsive LOCATION: cranial TECHNIQUE: Multiple contiguous axial images were obtained of the head. Using automated exposure control and adj ustment of the mA and/or kV according to patient size, radiation dose was kept as low as reasonably a chievable to obtain optimal diagnostic quality images. DICOM format image data is available electro nically for review and comparison. FINDINGS: CEREBRUM: Right parietal infarct again seen. The ventricles are normal for age. No evidence of midline shift, mass lesion, hemorrhage or acute infarction. No extra-axial fluid collections are seen. POSTERIOR FOSSA: The cerebellum and brainstem are intact. The 4th ventricle is midline. The cerebellopontine angle i s unremarkable. EXTRACRANIAL: The visualized portion of the orbits is intact. SKULL: The calvaria is intact. No evidence of skull fracture. CONCLUSION: 1. Remote right parietal infarct. No change. No midline shift. Felipe Green MD on July 06, 2017 at 17:34 Board Certified Radiologist. This report was verified electronically.
[2017-07-06] MEDS ORDERED: LACTULOSE SYRUP 20 GM/30 ML CUP PO ONE (17:45)
[2017-07-06] MEDS ORDERED: NALOXONE HCL 0.4 MG/ML AMP IV PUSH PRN (19:00)
--- NOTE | 2017-07-06 19:01 | HHI.HP ---
HPI Service [facility] Hospitalists Primary Care Physician Non-Staff Admission Diagnosis hepatic encephalopathy Diagnoses: Chief Complaint: Confusion Travel History International Travel<30 Days: No Contact w/Intl Traveler <30 Da: No Traveled to Known Affected Are: No History of Present Illness The patient is a 56-year-old male with past medical history of CABG, hypertension, hepatitis C, dementia, bipolar disorder, seizure disorder, history of CVA who presents to [facility] ED with altered mental status. The patient was recently hospitalized and left AGAINST MEDICAL ADVICE on the day prior to admission. He was seen by neurology at that time and the workup was underway for altered mental status. The patient re-presents to the hospital with significant confusion. He is unable to describe the circumstances leading to his arrival at the hospital, however he is able to tell me he is in the hospital. He is unable to tell me if he has any symptoms at this time. He appeared uncomfortable and was constantly moving in his bed. He has been unable to drink the lactulose that was ordered for him as his ammonia level has been noted to be high in the emergency department. Review of Systems ROS Limitations: Clinical Condition, Altered Mental Status, Poor Historian Except as stated in HPI: all other systems reviewed are Neg Past Family Social History Past Medical History Dementia Bipolar disorder Hepatitis C Coronary artery disease Seizures History of CVA Past Surgical History CABG x 2 Allergies: Coded Allergies: acetaminophen (Verified Adverse Reaction, Unknown, LIVER, 07/06/17) Active Ordered Medications Current Medications Medications (Trade) Dose Ordered Sig/Ria Route Start Time Stop Time Status Last Admin (NS Flush) 2 ml UNSCH PRN IV FLUSH 07/06/17 15:45 Lactulose 300 ml/ Sterile Water 1,000 ml @ 0 mls/hr ONCE ONCE RECTAL 07/06/17 19:00 07/06/17 19:01 UNV Family History Unable to obtain Social History Unable to obtain Physical Exam Vital Signs Vital Signs Date Time Temp Pulse Resp B/P (MAP) Pulse Ox O2 Delivery O2 Flow Rate FiO2 07/06/17 16:16 18 96 Nasal Cannula 2.00 07/06/17 15:33 73 18 96 Room Air 07/06/17 15:07 98.5 70 18 118/70 (86 99 Physical Exam GENERAL: This is a well-nourished, well-developed disheveled male patient who is confused. HEENT: NC, AT. CARDIOVASCULAR: Regular rate and rhythm without murmurs, gallops, or rubs. RESPIRATORY: Poor inspiratory effort. Clear to auscultation. Breath sounds equal bilaterally. No wheezes, rales, or rhonchi. GASTROINTESTINAL: Abdomen soft, non-tender, nondistended. No hepato-splenomegaly , or palpable masses. No guarding. MUSCULOSKELETAL: Extremities without clubbing, cyanosis, or edema. No joint tenderness, effusion, or edema noted. NEUROLOGICAL: Awake and alert x 1. Not really following commands. Motor and sensory grossly within normal limits. Five out of 5 muscle strength in all muscle groups. Not articulating well. PSYCH: Anxious. Laboratory Laboratory Tests Test 07/06/17 16:00 White Blood Count 10.0 Red Blood Count 4.70 Hemoglobin 14.2 Hematocrit 40.3 Mean Corpuscular Volume 85.7 Mean Corpuscular Hemoglobin 30.1 Mean Corpuscular Hemoglobin Concent 35.1 Red Cell Distribution Width 14.7 Platelet Count 173 Mean Platelet Volume 8.7 Neutrophils (%) (Auto) 74.1 Lymphocytes (%) (Auto) 11.3 Monocytes (%) (Auto) 14.1 Eosinophils (%) (Auto) 0.2 Basophils (%) (Auto) 0.3 Neutrophils # (Auto) 7.4 Lymphocytes # (Auto) 1.1 Monocytes # (Auto) 1.4 Eosinophils # (Auto) 0.0 Basophils # (Auto) 0.0 CBC Comment DIFF FINAL Differential Comment Prothrombin Time 10.5 Prothromb Time International Ratio 1.0 Activated Partial Thromboplast Time 26.7 Urine Color YELLOW Urine Turbidity CLEAR Urine pH 6.5 Urine Specific [place] 1.021 Urine Protein 30 Urine Glucose (UA) NEG Urine Ketones NEG Urine Occult Blood NEG Urine Nitrite NEG Urine Bilirubin NEG Urine Urobilinogen 2.0 Urine Leukocyte Esterase NEG Urine RBC LESS THAN 1 Urine WBC 1 Urine Mucus FEW Microscopic Urinalysis Comment CATH-CULT NOT IND Blood Urea Nitrogen 17 Creatinine 1.18 Random Glucose 100 Total Protein 7.8 Albumin 3.7 Calcium Level 8.6 Alkaline Phosphatase 97 Aspartate Amino Transf (AST/SGOT) 49 Alanine Aminotransferase (ALT/SGPT) 59 Total Bilirubin 0.5 Sodium Level 134 Potassium Level 4.9 Chloride Level 100 Carbon Dioxide Level 24.6 Anion Gap 9 Estimat Glomerular Filtration Rate 64 Ammonia 58 Troponin I LESS THAN 0.02 Urine Opiates Screen NEG Urine Barbiturates Screen NEG Urine Amphetamines Screen NEG Urine Benzodiazepines Screen NEG Urine Cocaine Screen NEG Urine Cannabinoids Screen POS Ethyl Alcohol Level LESS THAN 3 Result Diagram: 07/06/17 1600 07/06/17 1600 Imaging Last Impressions Head CT 07/06/17 1543 Signed Impressions: Service Date/Time: Thursday, July 06, 2017 16:56 - CONCLUSION: 1. Remote right parietal infarct. No change. No midline shift. Felipe Green MD Chest X-Ray 07/06/17 154 Signed Impressions: Service Date/Time: Thursday, July 06, 2017 16:09 - CONCLUSION: 1. No acute cardiopulmonary findings identified. 2. The patient is post median sternotomy. MD Savage Rodriguezi VTE Risk Assessment Caprini VTE Risk Assessment: Mod/High Risk (score >= 2) Caprini Risk Assessment Model Point Value = 1 Point Value = 2 Point Value = 3 Point Value = 5 Age 41-60 Minor surgery BMI > 25 kg/m2 Swollen legs Varicose veins or History of unexplained or recurrent spontaneous Oral contraceptives or hormone replacement Sepsis (< 1 month) Serious lung disease, including pneumonia (< 1 month) Abnormal pulmonary function Acute myocardial infarction Congestive heart failure (< 1 month) History of inflammatory bowel disease Medical patient at bed rest Age 61-74 Arthroscopic surgery Major open surgery (> 45 min) Laparoscopic surgery (> 45 min) Malignancy Confined to bed (> 72 hours) Immobilizing plaster cast Central venous access Age >= 75 History of VTE Family history of VTE Factor V Leiden Prothrombin [id number] Lupus anticoagulant Anticardiolipin antibodies Elevated serum homocysteine Heparin-induced thrombocytopenia Other congenital or acquired thrombophilia Stroke (< 1 month) Elective arthroplasty Hip, pelvis, or leg fracture Acute spinal cord injury (< 1 month) Prophylaxis Regimen Total Risk Factor Score Risk Level Prophylaxis Regimen 0-1 Low Early ambulation 2 Moderate Order ONE of the following: *Sequential Compression Device (SCD) *Heparin 5000 units SQ BID 3-4 Higher Order ONE of the following medications: *Heparin 5000 units SQ TID *Enoxaparin/Lovenox 40 mg SQ daily (WT < 150 kg, CrCl > 30 mL/min) *Enoxaparin/Lovenox 30 mg SQ daily (WT < 150 kg, CrCl > 10-29 mL/min) *Enoxaparin/Lovenox 30 mg SQ BID (WT < 150 kg, CrCl > 30 mL/min) AND/OR *Sequential Compression Device (SCD) 5 or more Highest Order ONE of the following medications: *Heparin 5000 units SQ TID (Preferred with Epidurals) *Enoxaparin/Lovenox 40 mg SQ daily (WT < 150 kg, CrCl > 30 mL/min) *Enoxaparin/Lovenox 30 mg SQ daily (WT < 150 kg, CrCl > 10-29 mL/min) *Enoxaparin/Lovenox 30 mg SQ BID (WT < 150 kg, CrCl > 30 mL/min) AND *Sequential Compression Device (SCD) Assessment and Plan Assessment and Plan 56-year-old male with past medical history significant for coronary artery disease status post previous CABG, hypertension, hepatitis C, dementia, bipolar disorder, seizure disorder, history of CVA who presents to [facility] ED with altered mental status found to have an elevated ammonia level. Acute metabolic encephalopathy/ History of seizure disorder CT of the head revealed normal examination except for remote parietal infarct. Ammonia level elevated. Recent EEG negative. - Consult neurology, appreciate assistance. - MRI brain pending. - Hold all sedating medications. - Seizure and fall precautions. - PT/OT eval/tx. - NPO. ST eval. - Consult case management - lactulose. - Keppra 500 mg IV BID. Hx of Hepatitis C/ Hyperammonemia Unknown history of treatment. Ammonia level elevated. - lactulose. - trend LFTs. DVT prophylaxis: SCDs Physician Certification 2 Midnight Certification Type: Admission for Inpatient Services Order for Inpatient Services The services are ordered in accordance with Medicare regulations or non- Medicare payer requirements, as applicable. In the case of services not specified as inpatient-only, they are appropriately provided as inpatient services in accordance with the 2-midnight benchmark. Estimated LOS (days): 3 days is the estimated time the patient will need to remain in the hospital, assuming treatment plan goals are met and no additional complications. Post-Hospital Plan: Not yet determined Javy Zamora DO Jul 06, 2017 19:01
[2017-07-06 19:19] VITALS: BP 121/67; PULSE 66; RESP 16; O2SAT 96
[2017-07-06] MEDS ORDERED: LACTULOSE LIQ 300 ML in WATER STERILE FOR IRR BTL 700 ML RECTAL ONE (20:00)
[2017-07-06 20:20] VITALS: BP 133/61; PULSE 65; RESP 21; TEMP 97.4; O2SAT 95
[2017-07-06 20:21] VITALS: O2SAT 95
[2017-07-06 20:54] VITALS: PULSE 65
[2017-07-06] MEDS ORDERED: levETIRAcetam INJ 500 MG in SODIUM CHLORIDE 0.9% INJ 100 ML IV SCH (21:00)
[2017-07-06] MEDS ORDERED: LACTULOSE SYRUP 20 GM/30 ML CUP PO SCH (21:00)
[2017-07-06] MEDS ORDERED: SODIUM CHLORIDE 0.9% FLUSH 10 ML FLUSH IV FLUSH SCH (21:00)
[2017-07-06] MEDS ORDERED: LORazepam 2 MG/ML VIAL IV PUSH ONE (22:45)
[2017-07-07] VITALS: BP 137/78; PULSE 64; RESP 20; TEMP 97.4; O2SAT 98
[2017-07-07 04:00] VITALS: BP 116/69; PULSE 66; PULSE 70; RESP 20; TEMP 98.3; O2SAT 96
[2017-07-07 04:02] VITALS: O2SAT 97
[2017-07-07 07:45] VITALS: PULSE 76
--- NOTE | 2017-07-07 13:39 | EKG ---
Date Performed: 07/06/2017 Time Performed: 16:19:10 PTAGE: 56 years EKG: Sinus rhythm INCOMPLETE RIGHT BUNDLE BRANCH BLOCK ANTERIOR MYOCARDIAL INFARCTION ABNORMAL ECG NO PREVIOUS TRACING DOCTOR: Joe Chung Interpretating Date/Time 07/07/2017 13:39:10
== END 2017-07-07 08:28 | disposition left against medical advice (07) | DRG 71 ==
LOC: NEPE 15:05 → NEDA 17:49 → N04A 20:18
PROVIDERS: ADMIT Hospitalist; ATTEND Hospitalist
DX: G93.41 Metabolic encephalopathy (principal); E72.20 Disorder of urea cycle metabolism, unspecified; G30.9 Alzheimer's disease, unspecified; F02.80 Dementia in other diseases classified elsewhere, unspecified severity, without behavioral disturbance, psychotic disturbance, mood disturbance, and anxiety; G62.9 Polyneuropathy, unspecified; I10 Essential (primary) hypertension; E78.00 Pure hypercholesterolemia, unspecified; I45.10 Unspecified right bundle-branch block; I25.10 Atherosclerotic heart disease of native coronary artery without angina pectoris; G40.909 Epilepsy, unspecified, not intractable, without status epilepticus; F31.9 Bipolar disorder, unspecified; Z72.0 Tobacco use; Z86.73 Personal history of transient ischemic attack (TIA), and cerebral infarction without residual deficits; Z86.19 Personal history of other infectious and parasitic diseases; Z88.6 Allergy status to analgesic agent; Z95.1 Presence of aortocoronary bypass graft
CPT/HCPCS: 51702; 70450; 71045; 76775; 80053; 80074; 80307; 81001; 82140; 82607; 82948; 84443; 84484; 85025; 85027; 85610; 85652; 85730; 86592; 90732; 93005; 93880; 95819; 96360; 96361; 96372; 99285; G0378; G8987-GP; G8988-GP; J1630; J1650; J1953; J2060; J7030; J7040

== ENCOUNTER 2017-07-16 16:22 | Emergency (ER) | payer MEDICAID ==
[2017-07-16 16:58] VITALS: BP 109/71; PULSE 108; RESP 18; TEMP 99.4; O2SAT 97
[2017-07-16] MEDS ORDERED: AZIT250T3 PO (17:32)
[2017-07-16] MEDS ORDERED: PRED20 PO (17:32)
--- NOTE | 2017-07-16 17:32 | PD ---
HPI Chief Complaint: Cold / Flu Symptoms Time Seen by Provider: 16:55 Travel History International Travel<30 days: No Contact w/Intl Traveler<30days: No Traveled to known affect area: No History of Present Illness HPI Patient 56-year-old male presents emergency department with cough and congestion for the past week, recent admission to the hospital for hepatic encephalopathy, alert and awake and oriented at this time, he appears well. He does endorse a smoking history. States his dry cough. No fevers no sputum production. The symptoms are mild, gradually worsening over the past week, context as above. PFSH Past Medical History Hx Anticoagulant Therapy: Yes (ASA?) Alzheimer's Disease: Yes Asthma: No Blood Disorders: No Bipolar Disorder: Yes Anxiety: Yes Depression: Yes Heart Rhythm Problems: Yes (murmur?) Cancer: No Cardiovascular Problems: Yes (double bypass 2007/ htn/ high cholestrol/ mumur ? ) High Cholesterol: Yes Chemotherapy: No Chest Pain: No Congestive Heart Failure: No COPD: No Cerebrovascular Accident: Yes Diabetes: No Diminished Hearing: No Endocrine: No Gastrointestinal Disorders: No Genitourinary: No Hepatitis: Yes (hep c) Hypertension: Yes Immune Disorder: No Implanted Vascular Access Dvce: Yes Musculoskeletal: Yes (right ankle sx/ back sx -w/hardware /) Neurologic: Yes (neuropathy) Psychiatric: Yes Reproductive: No Respiratory: Yes (pt uses inhaler for sob) Radiation Therapy: No Seizures: Yes Sleep Apnea: No Thyroid Disease: No Past Surgical History Body Medical Devices: metal hardware in back Cardiac Surgery: Yes Coronary Artery Bypass Graft: Yes (double bypass) Other Surgery: Yes (muscleskeletal, cardiovascular, ) Social History Alcohol Use: No Tobacco Use: Yes (0.5ppd) Substance Use: No Allergies-Medications (Allergen,Severity, Reaction): Coded Allergies: acetaminophen (Verified Adverse Reaction, Unknown, LIVER, 07/06/17) Reported Meds & Prescriptions Reported Meds & Active Scripts Active Azithromycin 250 Mg Tab 250 Mg PO DIRECTED Take 2 tabs (500 mg) on day 1 then 1 tab daily x 4 days. Prednisone 20 Mg Tab 60 Mg PO DAILY 5 Days Reported Proair Hfa 8.5 GM Inh (Albuterol Sulfate) 90 Mcg/Act Aer 2 Puff INH Q4HR PRN 108 mcg/actuation Vistaril (Hydroxyzine Pamoate) 25 Mg Cap 50 Mg PO HS Omeprazole 20 Mg Tab 20 Mg PO DAILY Simvastatin 40 Mg Tab 40 Mg PO HS Lisinopril 10 Mg Tab 10 Mg PO DAILY Duloxetine DR (Duloxetine HCl) 30 Mg Capdr 30 Mg PO DAILY Buspirone (Buspirone HCl) 10 Mg Tab 20 Mg PO TID Baclofen 10 Mg Tab 10 Mg PO QID Seroquel (Quetiapine Fumarate) 400 Mg Tab 400 Mg PO HS Atenolol 25 Mg Tab 25 Mg PO DAILY Trazodone (Trazodone HCl) 100 Mg Tablet 100 Mg PO HS Review of Systems Except as stated in HPI: all other systems reviewed are Neg Physical Exam Narrative GENERAL: Well-nourished, well-developed patient. SKIN: Focused skin assessment warm/dry. HEAD: Normocephalic. EYES: No scleral icterus. No injection or drainage. ENT: TMs clear bilaterally, oropharynx clear moist NECK: Supple, trachea midline. No JVD or lymphadenopathy. CARDIOVASCULAR: Regular rate and rhythm without murmurs, gallops, or rubs. RESPIRATORY: Breath sounds equal bilaterally. no wheezing rales or rhonchi, no accessory muscle use. GASTROINTESTINAL: Abdomen soft, non-tender, nondistended. MUSCULOSKELETAL: No cyanosis, or edema. BACK: Nontender without obvious deformity. No CVA tenderness. Data Data Last Documented VS Vital Signs Date Time Temp Pulse Resp B/P (MAP) Pulse Ox O2 Delivery O2 Flow Rate FiO2 07/16/17 17:41 100 16 98 07/16/17 16:58 99.4 109/71 (84) Orders Orders Ed Discharge Order (07/16/17 17:32) MDM Medical Decision Making Medical Screen Exam Complete: Yes Emergency Medical Condition: Yes Differential Diagnosis Bronchitis, URI, pneumonia Narrative Course Given recent history of hospitalization discussed with the patient he should have a chest x-ray to rule out pneumonia which would likely be hospital acquired , he verbalized understanding initially agreeable but he wanted to go home just with a [place] and I think this is reasonable given how well he looks and his lungs are clear. Discussed return to be criteria symptomatic management home follow up with his primary care physician Diagnosis Primary Impression: Bronchitis Med/Other Pt SpecificInfo: Prescription(s) given Scripts Azithromycin (Azithromycin) 250 Mg Tab 250 MG PO DIRECTED for Infection, #6 TAB 0 Refills Take 2 tabs (500 mg) on day 1 then 1 tab daily x 4 days. Prov: Mariusz Norwood MD 07/16/17 Prednisone (Prednisone) 20 Mg Tab 60 MG PO DAILY for 5 Days, #15 TAB 0 Refills Prov: Mariusz Norwood MD 07/16/17 Disposition: 01 DISCHARGE HOME Condition: Stable Mariusz Norwood MD Jul 16, 2017 17:32
== END 2017-07-16 17:41 | disposition home or self-care (01) ==
LOC: PHEFT 16:22
DX: J40 Bronchitis, not specified as acute or chronic (principal); B19.20 Unspecified viral hepatitis C without hepatic coma; I10 Essential (primary) hypertension; E78.00 Pure hypercholesterolemia, unspecified; G30.9 Alzheimer's disease, unspecified; F31.9 Bipolar disorder, unspecified; F17.210 Nicotine dependence, cigarettes, uncomplicated; Z95.1 Presence of aortocoronary bypass graft; Z86.73 Personal history of transient ischemic attack (TIA), and cerebral infarction without residual deficits; Z88.8 Allergy status to other drugs, medicaments and biological substances; Z79.899 Other long term (current) drug therapy
CPT/HCPCS: 99284

== ENCOUNTER 2017-07-31 08:43 | Emergency (ER) | payer MEDICAID ==
[~2017-07-31] VITALS: Ht 160 cm; Wt 70.0 kg
[~2017-07-31 08:43] MED LIST changes: +AZIT250T3 PO; +PRED20 PO
[2017-07-31 08:48] VITALS: BP 109/68; PULSE 87; RESP 16; TEMP 97.7; O2SAT 98
[2017-07-31] MEDS ORDERED: SODIUM CHLOR 0.9% 1000 ML INJ 1,000 ML IV SCH (09:22)
--- NOTE | 2017-07-31 09:29 | PD ---
HPI Chief Complaint: Medical Clearance Time Seen by Provider: 09:21 Travel History International Travel<30 days: No Contact w/Intl Traveler<30days: No Traveled to known affect area: No History of Present Illness HPI The patient is a 56-year-old male who presents to the emergency department with his daughter for altered mental status for flank pain. The daughter provides most of the history, the patient has a history of dementia, previous alcohol abuse, and was being followed by [facility] in [place], [place]. The patient recently moved to the area and lives with a daughter. The patient is a poor historian and refuses answer questions. When asking questions in regards to place, month, year, is erythematous at the hospital and says "yes I know who the [employer] programmer is", but is unable to tell me the name. The daughter does state the patient behaves this way when he is irritated. The patient will not answer questions regards to the review systems. PFSH Past Medical History Hx Anticoagulant Therapy: Yes (ASA?) Alzheimer's Disease: Yes Asthma: No Blood Disorders: No Bipolar Disorder: Yes Anxiety: Yes Depression: Yes Heart Rhythm Problems: Yes (murmur?) Cancer: No Cardiovascular Problems: Yes High Cholesterol: Yes Chemotherapy: No Chest Pain: No Congestive Heart Failure: No COPD: No Cerebrovascular Accident: Yes Dementia: Yes Diabetes: No Diminished Hearing: No Endocrine: No Gastrointestinal Disorders: No Genitourinary: No Hepatitis: Yes (hep c) Hypertension: Yes Immune Disorder: No Implanted Vascular Access Dvce: Yes Musculoskeletal: Yes (right ankle sx/ back sx -w/hardware 1999's/) Neurologic: Yes (neuropathy) Psychiatric: Yes Reproductive: No Respiratory: Yes (pt uses inhaler for sob) Radiation Therapy: No Seizures: Yes Sleep Apnea: No Thyroid Disease: No Past Surgical History Body Medical Devices: metal hardware in back Cardiac Surgery: Yes Coronary Artery Bypass Graft: Yes (double bypass) Other Surgery: Yes (muscleskeletal, cardiovascular, ) Social History Alcohol Use: No Tobacco Use: Yes (0.5ppd) Substance Use: No Allergies-Medications (Allergen,Severity, Reaction): Coded Allergies: acetaminophen (Verified Adverse Reaction, Unknown, LIVER, 07/06/17) Reported Meds & Prescriptions Reported Meds & Active Scripts Active Azithromycin 250 Mg Tab 250 Mg PO DIRECTED Take 2 tabs (500 mg) on day 1 then 1 tab daily x 4 days. Prednisone 20 Mg Tab 60 Mg PO DAILY 5 Days Reported Proair Hfa 8.5 GM Inh (Albuterol Sulfate) 90 Mcg/Act Aer 2 Puff INH Q4HR PRN 108 mcg/actuation Vistaril (Hydroxyzine Pamoate) 25 Mg Cap 50 Mg PO HS Omeprazole 20 Mg Tab 20 Mg PO DAILY Simvastatin 40 Mg Tab 40 Mg PO HS Lisinopril 10 Mg Tab 10 Mg PO DAILY Duloxetine DR (Duloxetine HCl) 30 Mg Capdr 30 Mg PO DAILY Buspirone (Buspirone HCl) 10 Mg Tab 20 Mg PO TID Baclofen 10 Mg Tab 10 Mg PO QID Seroquel (Quetiapine Fumarate) 400 Mg Tab 400 Mg PO HS Atenolol 25 Mg Tab 25 Mg PO DAILY Trazodone (Trazodone HCl) 100 Mg Tablet 100 Mg PO HS Review of Systems Except as stated in HPI: all other systems reviewed are Neg Genitourinary: Positive: Flank Pain (according to the daughter) Neurologic: Positive: Change in Mentation (according to the daughter) Physical Exam Narrative GENERAL: Awake, somewhat hostile 56-year-old male appears his stated age. SKIN: Focused skin assessment warm/dry. HEAD: Atraumatic. Normocephalic. EYES: Pupils equal and round. 3 mm bilateral and reactive. ENT: No nasal bleeding or discharge. Slightly dry mucous membranes. NECK: Trachea midline. No JVD. CARDIOVASCULAR: Regular rate and rhythm. No murmur appreciated. RESPIRATORY: No accessory muscle use. Clear to auscultation. Breath sounds equal bilaterally. GASTROINTESTINAL: Abdomen soft, non-tender, nondistended. No rebound tenderness. Right CVA tenderness. MUSCULOSKELETAL: No obvious deformities. No clubbing. No cyanosis. No edema. NEUROLOGICAL: Awake and alert. No obvious cranial nerve deficits. Motor grossly within normal limits. Normal speech. PSYCHIATRIC: Appropriate mood and affect; insight and judgment normal. Data Data Last Documented VS Vital Signs Date Time Temp Pulse Resp B/P (MAP) Pulse Ox O2 Delivery O2 Flow Rate FiO2 07/31/17 08:48 97.7 87 16 109/68 (82) 98 Orders Orders Ammonia (07/31/17 09:22) Complete Blood Count With Diff (07/31/17 09:22) Comprehensive Metabolic Panel (07/31/17:) Creatine Kinase (Cpk) (07/31/17:22) Thyroid Stimulating Hormone (07/31/17:) Urinalysis - C+S If Indicated (07/31/17:) Blood Glucose (07/31/17:) Ecg Monitoring (07/31/17:) Iv Access Insert/Monitor (07/31/17:) Oximetry (07/31/17:) Sodium Chloride 0.9% Flush (Ns Flush) (07/31/17:30) Sodium Chlor 0.9% 1000 Ml Inj (Ns 1000 M (07/31/17:) Drug Screen, Random Urine (07/31/17:) Alcohol (Ethanol) (07/31/17:) Lactic Acid (07/31/17:) Ct Abd/Pel W/O Iv Contrast (07/31/17 ) MDM Medical Decision Making Medical Screen Exam Complete: Yes Emergency Medical Condition: Yes Medical Record Reviewed: Yes Differential Diagnosis Differential diagnosis includes alcohol intoxication, hyponatremia, encephalopathy, avoid ammonia level, subdural hemorrhage, pyelonephritis, nephrolithiasis, substance abuse. Narrative Course While performing the examination the patient swung at me with his right upper extremity, striking him in the groin. I had a discussion with the patient and the daughter that he is not allowed to strike hospital staff. Labs are ordered and noncontrast CT the abdomen and pelvis was ordered. However, the patient refused to allow nursing staff to start an IV. The patient is oriented to place , refusing answer other questions and basically speaks through his daughter. Patient meets no Rdz act criteria, he appears nonfocal on exam. I reviewed the patient's EMR, he had 3 visits in June, several falter mental status. The patient had a CT the brain that was unremarkable except for an old area of encephalomalacia. He had an ammonia level of 33 and 58, otherwise labs are unremarkable. The patient answered questions appropriately to his daughter, but would not answer questions. The patient was oriented to his daughter, but would not answer questions, he would not allow us to perform blood work or CAT scan. Therefore, the patient left against medical lab specialist. Procedures Procedure Narrative AMA: The risks of leaving against medical advice without further evaluation treatment were discussed with the patient. These risks include cardiac dysfunction, cardiac dysrhythmia, possible heart attack, possible stroke or . The patient indicated understanding of these risks and appeared to have the capacity to make this decision. Diagnosis Primary Impression: Flank pain Disposition: 07 AGAINST MEDICAL ADVICE Condition: Stable Sahil Baldwin MD Jul 31, 2017 09:29
[2017-07-31] MEDS ORDERED: SODIUM CHLORIDE 0.9% FLUSH 10 ML FLUSH IV FLUSH PRN (09:30)
== END 2017-07-31 09:42 | disposition left against medical advice (07) ==
LOC: NEPD 08:43
DX: R10.9 Unspecified abdominal pain (principal); R41.82 Altered mental status, unspecified; G30.9 Alzheimer's disease, unspecified; F02.80 Dementia in other diseases classified elsewhere, unspecified severity, without behavioral disturbance, psychotic disturbance, mood disturbance, and anxiety; F31.9 Bipolar disorder, unspecified; F41.9 Anxiety disorder, unspecified; E78.00 Pure hypercholesterolemia, unspecified; I10 Essential (primary) hypertension; Z86.73 Personal history of transient ischemic attack (TIA), and cerebral infarction without residual deficits
CPT/HCPCS: 99281

== ENCOUNTER 2017-07-31 18:28 | Emergency (ER) | payer MEDICAID ==
[~2017-07-31] VITALS: Ht 160 cm; Wt 68.1 kg
[2017-07-31 18:56] VITALS: BP 115/65; PULSE 85; RESP 16; TEMP 98.1; O2SAT 97
[2017-07-31] MEDS ORDERED: SODIUM CHLOR 0.9% 1000 ML INJ 1,000 ML IV SCH (19:08)
--- NOTE | 2017-07-31 19:11 | PD ---
HPI Chief Complaint: Flank/Kidney Pain Time Seen by Provider: 19:05 Travel History International Travel<30 days: No Contact w/Intl Traveler<30days: No Traveled to known affect area: No History of Present Illness HPI 56-year-old male here for evaluation of right flank pain that radiates to his right mid and upper abdomen. The patient reports the pain has been going on for a week. Apparently he was seen at our main emergency department in [facility] yesterday, became aggressive with staff, and left AMA. Patient reports several back surgeries. No nausea or vomiting. No dysuria or hematuria. No fevers. Pain is moderate, constant. PFSH Past Medical History Hx Anticoagulant Therapy: Yes Alzheimer's Disease: Yes Asthma: No Blood Disorders: No Bipolar Disorder: Yes Anxiety: Yes Depression: Yes Heart Rhythm Problems: Yes (murmur?) Cancer: No Cardiovascular Problems: Yes (htn on med, [place], double bypass) High Cholesterol: Yes Chemotherapy: No Chest Pain: No Congestive Heart Failure: No COPD: No Cerebrovascular Accident: Yes Dementia: Yes Diabetes: Yes (diet control) Diminished Hearing: No Endocrine: No Gastrointestinal Disorders: No Genitourinary: No Hepatitis: Yes (hep c) Hypertension: Yes Immune Disorder: No Implanted Vascular Access Dvce: Yes Musculoskeletal: Yes (right ankle sx/ back sx -w/hardware /) Neurologic: Yes (neuropathy) Psychiatric: Yes Reproductive: No Respiratory: Yes (pt uses inhaler for sob) Radiation Therapy: No Seizures: Yes Sleep Apnea: No Thyroid Disease: No Past Surgical History Body Medical Devices: metal hardware in back Cardiac Surgery: Yes Coronary Artery Bypass Graft: Yes (double bypass) Other Surgery: Yes (muscleskeletal, cardiovascular, ) Social History Alcohol Use: No Tobacco Use: Yes (0.5ppd) Substance Use: No Allergies-Medications (Allergen,Severity, Reaction): Coded Allergies: acetaminophen (Verified Adverse Reaction, Unknown, LIVER, 07/31/17) Reported Meds & Prescriptions Reported Meds & Active Scripts Active Reported Proair Hfa 8.5 GM Inh (Albuterol Sulfate) 90 Mcg/Act Aer 2 Puff INH Q4HR PRN 108 mcg/actuation Vistaril (Hydroxyzine Pamoate) 25 Mg Cap 50 Mg PO HS Omeprazole 20 Mg Tab 20 Mg PO DAILY Simvastatin 40 Mg Tab 40 Mg PO HS Lisinopril 10 Mg Tab 10 Mg PO DAILY Duloxetine DR (Duloxetine HCl) 30 Mg Capdr 30 Mg PO DAILY Buspirone (Buspirone HCl) 10 Mg Tab 20 Mg PO TID Baclofen 10 Mg Tab 10 Mg PO QID Seroquel (Quetiapine Fumarate) 400 Mg Tab 400 Mg PO HS Atenolol 25 Mg Tab 25 Mg PO DAILY Trazodone (Trazodone HCl) 100 Mg Tablet 100 Mg PO HS Review of Systems Except as stated in HPI: all other systems reviewed are Neg Physical Exam Narrative GENERAL: Well-developed, well-nourished, comfortable appearing, no apparent distress. SKIN: Focused skin assessment warm/dry. No rash. HEAD: Atraumatic. Normocephalic. EYES: Pupils equal and round. No scleral icterus. No injection or drainage. ENT: No nasal bleeding or discharge. Mucous membranes pink and moist. NECK: Trachea midline. No JVD. CARDIOVASCULAR: Regular rate and rhythm. No murmur appreciated. RESPIRATORY: No accessory muscle use. Clear to auscultation. Breath sounds equal bilaterally. GASTROINTESTINAL: Abdomen soft, non-tender, nondistended. MUSCULOSKELETAL: No obvious deformities. No clubbing. No cyanosis. No edema. Moderate CVA tenderness. No left CVA tenderness. NEUROLOGICAL: Awake and alert. No obvious cranial nerve deficits. Motor grossly within normal limits. Normal speech. PSYCHIATRIC: Appropriate mood and affect; insight and judgment normal. Data Data Last Documented VS Vital Signs Date Time Temp Pulse Resp B/P (MAP) Pulse Ox O2 Delivery O2 Flow Rate FiO2 07/31/17 18:56 98.1 85 16 115/65 (82) 97 Orders Orders Complete Blood Count With Diff (07/31/17 19:08) Comprehensive Metabolic Panel (07/31/17:08) Lipase (07/31/17:08) Prothrombin Time / Inr (Pt) (07/31/17:08) Act Partial Throm Time (Ptt) (07/31/17:08) Urinalysis - C+S If Indicated (07/31/17:08) Ct Abd/Pel W/O Iv Contrast (07/31/17 19:08) Iv Access Insert/Monitor (07/31/17 19:08) Ecg Monitoring (07/31/17:08) Oximetry (2/14/18 19:08) Ondansetron Inj (Zofran Inj) (07/31/17 19:15) Sodium Chlor 0.9% 1000 Ml Inj (Ns 1000 M (07/31/17 19:08) Sodium Chloride 0.9% Flush (Ns Flush) (07/31/17 19:15) Ammonia (07/31/17 19:08) Drug Screen, Random Urine (07/31/17 19:08) Alcohol (Ethanol) (07/31/17 19:08) Ketorolac Inj (Toradol Inj) (07/31/17 19:15) Labs Laboratory Tests Test 07/31/17 20:05 07/31/17 21:05 White Blood Count 8.8 TH/MM3 Red Blood Count 5.08 MIL/MM3 Hemoglobin 14.4 GM/DL Hematocrit 42.9 % Mean Corpuscular Volume 84.4 FL Mean Corpuscular Hemoglobin 28.3 PG Mean Corpuscular Hemoglobin Concent 33.5 % Red Cell Distribution Width 13.2 % Platelet Count 201 TH/MM3 Mean Platelet Volume 7.7 FL Neutrophils (%) (Auto) 74.3 % Lymphocytes (%) (Auto) 17.5 % Monocytes (%) (Auto) 6.7 % Eosinophils (%) (Auto) 1.0 % Basophils (%) (Auto) 0.5 % Neutrophils # (Auto) 6.6 TH/MM3 Lymphocytes # (Auto) 1.5 TH/MM3 Monocytes # (Auto) 0.6 TH/MM3 Eosinophils # (Auto) 0.1 TH/MM3 Basophils # (Auto) 0.0 TH/MM3 CBC Comment DIFF FINAL Differential Comment Prothrombin Time 10.4 SEC Prothromb Time International Ratio 1.0 RATIO Activated Partial Thromboplast Time 25.3 SEC Blood Urea Nitrogen 17 MG/DL Creatinine 1.30 MG/DL Random Glucose 87 MG/DL Total Protein 7.8 GM/DL Albumin 3.8 GM/DL Calcium Level 9.2 MG/DL Alkaline Phosphatase 99 U/L Aspartate Amino Transf (AST/SGOT) 17 U/L Alanine Aminotransferase (ALT/SGPT) 30 U/L Total Bilirubin 0.2 MG/DL Sodium Level 137 MEQ/L Potassium Level 3.9 MEQ/L Chloride Level 102 MEQ/L Carbon Dioxide Level 32.3 MEQ/L Anion Gap 3 MEQ/L Estimat Glomerular Filtration Rate 57 ML/MIN Ammonia 25 MCMOL/L Lipase 170 U/L Ethyl Alcohol Level LESS THAN 3 MG/DL Urine Color YELLOW Urine Turbidity CLEAR Urine pH 6.5 Urine Specific [place] 1.020 Urine Protein NEG mg/dL Urine Glucose (UA) NEG mg/dL Urine Ketones NEG mg/dL Urine Occult Blood NEG Urine Nitrite NEG Urine Bilirubin NEG Urine Leukocyte Esterase NEG Urine Squamous Epithelial Cells 0-5 /hpf Urine Amorphous Sediment FEW Urine Mucus FEW /lpf Microscopic Urinalysis Comment CULT NOT INDICATED Urine Barbiturates Screen NEG Urine Amphetamines Screen NEG Urine Cocaine Screen NEG Urine Cannabinoids Screen POS MDM Medical Decision Making Medical Screen Exam Complete: Yes Emergency Medical Condition: Yes Differential Diagnosis Nephrolithiasis, ureterolithiasis, hepatobiliary disease, hepatitis, pancreatitis, musculoskeletal pain, pyelonephritis Narrative Course Vital signs are within normal limits. CBC is unremarkable. CMP is unremarkable. Ammonia level is 25. Lipase is 170. Urine drug screen is positive for marijuana UA is not suggestive of UTI. CT abdomen pelvis: Chronic vascular calcifications, postsurgical and chronic changes in the patient 's spine without evidence of renal stones. Patient was made aware of all findings. He is resting comfortably. He stable for discharge home with outpatient follow-up with a primary care physician this week. He was informed on when to return to the emergency department. He verbalizes understanding and agreement with plan. Diagnosis Primary Impression: Flank pain Referrals: [facility] 3 days Primary Care Physician 3 days Additional Instructions: Follow-up with a primary care physician this week. Return to the emergency department for worsening symptoms or any other concerns. Disposition: 01 DISCHARGE HOME Condition: Stable Tam Contreras MD Jul 31, 2017 19:11
[2017-07-31] MEDS ORDERED: ONDANSETRON HCL 4 MG/2 ML VIAL IVP ONE (19:15)
[2017-07-31] MEDS ORDERED: SODIUM CHLORIDE 0.9% FLUSH 10 ML FLUSH IV FLUSH PRN (19:15)
[2017-07-31] MEDS ORDERED: KETOROLAC TROMETHAMINE 30 MG/ML (IVP) VIAL IV PUSH ONE (19:15)
--- NOTE | 2017-07-31 19:49 | RADRPT ---
EXAM DATE/TIME: 07/31/2017 19:19 [facility] COMPARISON: No previous studies available for comparison. INDICATIONS : Right flank pain. ORAL CONTRAST: No oral contrast ingested. RADIATION DOSE: 11.47 CTDIvol (mGy) MEDICAL HISTORY : Renal calculi. Hypertension. Diabetes mellitus type 2. SURGICAL HISTORY : Fusion, lumbar. ENCOUNTER: Initial ACUITY: 1 day PAIN SCALE: 7/10 LOCATION: Right flank TECHNIQUE: Volumetric scanning of the abdomen and pelvis was performed. Using automated exposure control and ad justment of the mA and/or kV according to patient size, radiation dose was kept as low as reasonably achievable to obtain optimal diagnostic quality images. DICOM format image data is available electro nically for review and comparison. FINDINGS: CT Abdomen: The spleen, pancreas, kidneys, adrenals are unremarkable. There is no evidence for any st ones in the kidneys or the course of the ureters on either side. There is no hydronephrosis.There are calcifications in both kidneys appear to be vascular. Chronic vascular calcifications are present in volving the aorta, iliac arteries without any significant stenosis or aneurysmal dilatations for tech nique. There are post surgical changes in the lower thoracic upper lumbar spine junction and the live r is partially visualized not completely characterized. There is no evidence for any appreciable path ological adenopathy, free fluid, or bowel obstruction. CT pelvis: There is no evidence for mass, abscess formation, or any significant adenopathy within the pelvis. The prostate gland is inhomogeneous and measures 3.3 x 4.1 cm in AP and transverse diameters and nonspecific. There is moderate amount of stool throughout the colon. There are degenerative ko ges and possible bulging discs in the lower lumbosacral spine not adequately characterized. Bilateral iliac artery stents are also identified. There is a tiny bone island in the right femoral head. CONCLUSION: Chronic vascular calcifications, postsurgical and chronic changes of the patient's sp ine without evidence for renal stones. Cindy Sousa MD on July 31, 2017 at 19:43 Board Certified Radiologist. This report was verified electronically.
[2017-07-31 20:22] LABS: AUTOMATED NEUTROPHIL # 6.6 TH/MM3 (1.8-7.7); BASOPHIL % 0.5 % (0.0-2.0); EOSINOPHIL # 0.1 TH/MM3 (0-0.4); HEMATOCRIT 42.9 % (39.0-51.0); HEMOGLOBIN 14.4 GM/DL (13.0-17.0); LYMPH % 17.5 % (9.0-44.0); LYMPHOCYTE # 1.5 TH/MM3 (1.0-4.8); MEAN CELL VOLUME 84.4 FL (80.0-100.0); MEAN CORPUSCULAR HEMOGLOBIN 28.3 PG (27.0-34.0); MEAN CORPUSCULAR HGB CONC 33.5 % (32.0-36.0); MEAN PLATELET VOLUME 7.7 FL (7.0-11.0); MONO % 6.7 % (0.0-8.0); MONOCYTE # 0.6 TH/MM3 (0-0.9); NEUT % 74.3 % (16.0-70.0); PLATELET COUNT 201 TH/MM3 (150-450); RED BLOOD COUNT 5.08 MIL/MM3 (4.50-5.90); RED CELL DISTRIBUTION WIDTH 13.2 % (11.6-17.2); WHITE BLOOD COUNT 8.8 TH/MM3 (4.0-11.0)
[2017-07-31 20:33] LABS: CHLORIDE 102 MEQ/L (98-107); SODIUM (NA) 137 MEQ/L (136-145)
[2017-07-31 20:36] LABS: CALCIUM 9.2 MG/DL (8.5-10.1)
[2017-07-31 20:37] LABS: ALBUMIN 3.8 GM/DL (3.4-5.0); BICARBONATE 32.3 MEQ/L (21.0-32.0); BLOOD UREA NITROGEN 17 MG/DL (7-18); GLUCOSE,RANDOM 87 MG/DL (74-106)
[2017-07-31 20:39] LABS: ALT (GPT) 30 U/L (12-78); AST (GOT) 17 U/L (15-37); PROTHROMBIN TIME - PATIENT 10.4 SEC (9.8-11.6)
[2017-07-31 20:40] LABS: GLOMERULAR FILTRATION RATE 57 ML/MIN (>89)
[2017-07-31 20:41] LABS: TOTAL BILIRUBIN ADULT 0.2 MG/DL (0.2-1.0); TOTAL PROTEIN 7.8 GM/DL (6.4-8.2)
[2017-07-31 20:42] LABS: ALKALINE PHOSPHATASE 99 U/L (45-117)
[2017-07-31 21:20] LABS: BILIRUBIN, URINE NEG (NEG); BLOOD, URINE NEG (NEG); GLUCOSE,URINE NEG (NEG); KETONE, URINE NEG (NEG); NITRITE,URINE NEG (NEG); PH, URINE 6.5 (5.0-8.5); URINE LEUKOCYTE ESTERASE NEG (NEG)
[2017-07-31 21:32] LABS: AMORPHOUS SEDIMENT, URINE FEW; MUCUS URINE FEW /lpf (OCC); SQUAMOUS EPITHELIAL CELL URINE 0-5 /hpf (0-5); URINE COLOR YELLOW (YELLW/STRAW)
== END 2017-07-31 21:46 | disposition home or self-care (01) ==
LOC: PHED 18:28
DX: R10.9 Unspecified abdominal pain (principal); G30.9 Alzheimer's disease, unspecified; F02.80 Dementia in other diseases classified elsewhere, unspecified severity, without behavioral disturbance, psychotic disturbance, mood disturbance, and anxiety; F31.9 Bipolar disorder, unspecified; E78.00 Pure hypercholesterolemia, unspecified; E11.9 Type 2 diabetes mellitus without complications; B19.20 Unspecified viral hepatitis C without hepatic coma; I10 Essential (primary) hypertension; Z95.1 Presence of aortocoronary bypass graft; Z86.73 Personal history of transient ischemic attack (TIA), and cerebral infarction without residual deficits; Z79.01 Long term (current) use of anticoagulants; Z88.6 Allergy status to analgesic agent
CPT/HCPCS: 74176; 80053; 80307; 81001; 82140; 83690; 85025; 85610; 85730; 96361; 96374; 96375; 99284; J1885; J2405; J7030

== ENCOUNTER 2017-08-05 21:37 | Inpatient (IN) | payer MEDICAID ==
[~2017-08-05] VITALS: Ht 167.6 cm; Wt 55.0 kg
[~2017-08-05 21:37] MED LIST changes: -AZIT250T3 PO; -PRED20 PO
[2017-08-05 22:06] VITALS: BP 118/75; PULSE 67; RESP 13; TEMP 98.6; O2SAT 100
[2017-08-05 22:19] VITALS: O2SAT 95
--- NOTE | 2017-08-05 22:26 | PD ---
HPI Chief Complaint: Psychiatric Symptoms Time Seen by Provider: 22:02 Travel History International Travel<30 days: No Contact w/Intl Traveler<30days: No Traveled to known affect area: No History of Present Illness HPI The patient is a 56 year old male who presents to the [facility] emergency department with a history of acute agitation and psychosis that began at home prior to arrival. The patient was residing at home when he became combative. The patient has a history of similar symptoms in the past. The patient does have a history of dementia and bipolar disorder. The patient reportedly smokes marijuana on a daily basis. He reportedly uses no other substances. The patient's blood sugar prior to arrival was noted to be within normal limits. The patient was so agitated that it was difficult for ambulance services to assess the patient. They did call into this facility for an order for sedative administration IM to assess the patient. The patient was given Versed 2 mg IM. The patient arrives drowsy although awake of all on exam. The patient is a poor historian and unable to provide any significant medical history or recent history, however from reviewing the electronic medical record the patient has been in the emergency department recently on multiple occasions. [facility] Past Medical History Narrative Medical The patient's past medical history is significant for dementia, bipolar disorder , hepatitis C, coronary artery disease, hypertension, seizure disorder, history of cerebrovascular accident Hx Anticoagulant Therapy: Yes Alzheimer's Disease: Yes Asthma: No Blood Disorders: No Bipolar Disorder: Yes Anxiety: Yes Depression: Yes Heart Rhythm Problems: Yes (murmur?) Cancer: No Cardiovascular Problems: Yes (htn on med, [place], double bypass) High Cholesterol: Yes Chemotherapy: No Chest Pain: No Congestive Heart Failure: No COPD: No Cerebrovascular Accident: Yes Dementia: Yes Diabetes: Yes (diet control) Patient Takes Glucophage: No Diminished Hearing: No Endocrine: No Gastrointestinal Disorders: No Genitourinary: No Hepatitis: Yes (hep c) Hypertension: Yes Immune Disorder: No Implanted Vascular Access Dvce: Yes Musculoskeletal: Yes (right ankle sx/ back sx -w/hardware /) Neurologic: Yes (neuropathy) Psychiatric: Yes Reproductive: No Respiratory: Yes (pt uses inhaler for sob) Radiation Therapy: No Seizures: Yes Sleep Apnea: No Thyroid Disease: No Past Surgical History Narrative Surgical The patient's past surgical history is significant for coronary artery bypass grafting of 2 vessels, low back surgery. Body Medical Devices: metal hardware in back Cardiac Surgery: Yes Coronary Artery Bypass Graft: Yes (double bypass) Other Surgery: Yes (muscleskeletal, cardiovascular, ) Social History Alcohol Use: No Tobacco Use: Yes (0.5ppd) Substance Use: Yes (Marijuana daily) Allergies-Medications (Allergen,Severity, Reaction): Coded Allergies: acetaminophen (Verified Adverse Reaction, Unknown, LIVER, 07/31/17) Reported Meds & Prescriptions Reported Meds & Active Scripts Active Reported Proair Hfa 8.5 GM Inh (Albuterol Sulfate) 90 Mcg/Act Aer 2 Puff INH Q4HR PRN 108 mcg/actuation Vistaril (Hydroxyzine Pamoate) 25 Mg Cap 50 Mg PO HS Omeprazole 20 Mg Tab 20 Mg PO DAILY Simvastatin 40 Mg Tab 40 Mg PO HS Duloxetine DR (Duloxetine HCl) 30 Mg Capdr 30 Mg PO DAILY Buspirone (Buspirone HCl) 10 Mg Tab 20 Mg PO TID Baclofen 10 Mg Tab 10 Mg PO QID Seroquel (Quetiapine Fumarate) 400 Mg Tab 400 Mg PO HS Atenolol 25 Mg Tab 25 Mg PO DAILY Trazodone (Trazodone HCl) 100 Mg Tablet 200 Mg PO HS Review of Systems ROS Limitations: Altered Mental Status Neurologic: Positive: Change in Mentation, No: Weakness, Focal Abnormalities, Slurred Speech, Sensory Disturbance Psychiatric: Positive: Disorder of Thought, Substance Abuse Physical Exam Narrative General: The patient is a well-developed well-nourished male in no acute distress. Head and Neck exam: Head is normocephalic atraumatic. Eyes: EOMI, pupils are equal round and reactive to light. Nose: Midline septum with pink mucous membranes Mouth: Dentition unremarkable. Moist mucus membranes. Posterior oropharynx is not erythematous. No tonsillar hypertrophy. Uvula midline. Airway patent. Neck: No palpable lymphadenopathy. No nuchal rigidity. No thyromegaly. Cardiovascular: Regular rate and rhythm without murmurs, gallops, or rubs. Lungs: Clear to auscultation bilaterally. No wheezes, rhonchi, or rales. Abdomen: Soft, without tenderness to palpation in all 4 quadrants of the abdomen. No guarding, rebound, or rigidity. Normal bowel sounds are audible. No tenderness on palpation of McBurney's point. Negative Hernández sign. Extremities: No clubbing, cyanosis, or edema. 2+ pulses in all 4 extremities. No calf tenderness on palpation. Back: No spinous process tenderness to palpation. No costovertebral angle tenderness to palpation. Neurologic Exam: The patient is uncooperative with formal neurologic testing. The patient is sleeping on my arrival to the room. The patient is arousable and agitated when awakened. He is spontaneously moving all extremities equally with 5/5 strength. The patient has no facial asymmetry. Skin Exam: No rash noted. Intact skin that is warm and dry. Data Data Last Documented VS Vital Signs Date Time Temp Pulse Resp B/P (MAP) Pulse Ox O2 Delivery O2 Flow Rate FiO2 08/06/17 00:00 74 12 129/69 (89) 97 Nasal Cannula 2.00 08/05/17 22:06 98.6 Orders Orders Electrocardiogram (08/05/17 22:13) Complete Blood Count With Diff (08/05/17 22:13) Comprehensive Metabolic Panel (08/05/17 22:13) Creatine Kinase (Cpk) (08/05/17 22:13) Ckmb (Isoenzyme) Profile (08/05/17 22:13) Troponin I (08/05/17 22:13) Prothrombin Time / Inr (Pt) (08/05/17 22:13) Act Partial Throm Time (Ptt) (08/05/17 22:13) Lipase (08/05/17 22:13) Urinalysis - C+S If Indicated (08/05/17 22:13) Magnesium (Mg) (08/05/17 22:13) Ammonia (08/05/17 22:13) Thyroid Stimulating Hormone (08/05/17 22:13) Chest, Single Ap (08/05/17 22:13) Iv Access Insert/Monitor (08/05/17 22:13) Ecg Monitoring (08/05/17 22:13) Oximetry (08/05/17 22:13) Drug Screen, Random Urine (08/05/17 22:13) Alcohol (Ethanol) (08/05/17 22:13) Psych Screen (08/05/17 22:13) CKMB (08/05/17 22:20) CKMB% (08/05/17 22:20) Lorazepam Inj (Ativan Inj) (08/05/17 23:47) Lorazepam Inj (Ativan Inj) (08/06/17 00:00) Sodium Chlor 0.9% 1000 Ml Inj (Ns 1000 M (08/06/17 00:00) Urinary Catheter Insert/Apply (08/05/17 23:50) Restraints Non-Violent RUTH ANN.Q3H (08/06/17 00:25) Ct Brain W/O Iv Contrast(Rout) (08/06/17 22:13) Admit Order (Ed Use Only) (08/06/17 00:32) Labs Laboratory Tests Test 08/05/17 22:20 08/05/17 22:24 08/06/17 00:10 White Blood Count 7.2 TH/MM3 Red Blood Count 5.03 MIL/MM3 Hemoglobin 14.5 GM/DL Hematocrit 42.7 % Mean Corpuscular Volume 84.9 FL Mean Corpuscular Hemoglobin 28.8 PG Mean Corpuscular Hemoglobin Concent 33.9 % Red Cell Distribution Width 14.4 % Platelet Count 166 TH/MM3 Mean Platelet Volume 8.0 FL Neutrophils (%) (Auto) 71.7 % Lymphocytes (%) (Auto) 15.6 % Monocytes (%) (Auto) 10.9 % Eosinophils (%) (Auto) 1.1 % Basophils (%) (Auto) 0.7 % Neutrophils # (Auto) 5.2 TH/MM3 Lymphocytes # (Auto) 1.1 TH/MM3 Monocytes # (Auto) 0.8 TH/MM3 Eosinophils # (Auto) 0.1 TH/MM3 Basophils # (Auto) 0.1 TH/MM3 CBC Comment DIFF FINAL Differential Comment Prothrombin Time 10.8 SEC Prothromb Time International Ratio 1.1 RATIO Activated Partial Thromboplast Time 25.4 SEC Blood Urea Nitrogen 20 MG/DL Creatinine 1.29 MG/DL Random Glucose 88 MG/DL Total Protein 7.7 GM/DL Albumin 4.0 GM/DL Calcium Level 8.6 MG/DL Magnesium Level 2.0 MG/DL Alkaline Phosphatase 98 U/L Aspartate Amino Transf (AST/SGOT) 62 U/L Alanine Aminotransferase (ALT/SGPT) 35 U/L Total Bilirubin 0.7 MG/DL Sodium Level 141 MEQ/L Potassium Level 4.3 MEQ/L Chloride Level 108 MEQ/L Carbon Dioxide Level 25.8 MEQ/L Anion Gap 7 MEQ/L Estimat Glomerular Filtration Rate 58 ML/MIN Total Creatine Kinase 1340 U/L Creatine Kinase MB 20.8 NG/ML Creatine Kinase MB % 1.6 % Troponin I LESS THAN 0.02 NG/ML Lipase 77 U/L Thyroid Stimulating Hormone 3rd Gen 0.808 uIU/ML Ethyl Alcohol Level LESS THAN 3 MG/DL Ammonia 29 MCMOL/L Urine Color YELLOW Urine Turbidity CLEAR Urine pH 6.0 Urine Specific [place] 1.028 Urine Protein 30 mg/dL Urine Glucose (UA) NEG mg/dL Urine Ketones 10 mg/dL Urine Occult Blood NEG Urine Nitrite NEG Urine Bilirubin NEG Urine Urobilinogen LESS THAN 2.0 MG/DL Urine Leukocyte Esterase NEG Urine RBC 8 /hpf Urine WBC 1 /hpf Urine Mucus FEW /lpf Microscopic Urinalysis Comment CULT NOT INDICATED Urine Opiates Screen NEG Urine Barbiturates Screen NEG Urine Amphetamines Screen NEG Urine Benzodiazepines Screen POS Urine Cocaine Screen NEG Urine Cannabinoids Screen POS MDM Medical Decision Making Medical Screen Exam Complete: Yes Emergency Medical Condition: Yes Medical Record Reviewed: Yes Interpretation(s) Last Impressions Chest X-Ray 08/05/172212 Signed Impressions: Service Date/Time: Saturday, August 05, 2017 22:27 - CONCLUSION: No acute disease Abran Mendoza MD Differential Diagnosis Drug use with psychosis, versus hepatic encephalopathy, versus intracranial abnormality decompensated psychiatric disorder Narrative Course During the course of the patient's emergency department visit, the patient's history, examination, and differential diagnosis were reviewed with the patient. The patient was placed on a traffic recorder with oximetry and frequent blood pressure monitoring. The patient had IV access obtained and blood work sent for analysis. The patient became agitated again and required additional Ativan administration for sedation. The patient was placed in soft restraints for his and the staff safety. The patient's laboratory studies were reviewed and remarkable for a white count of 7.2, hemoglobin 14.5, platelets 166 with 71.7 neutrophils, monocytes 10.9.CMP is remarkable for a chloride of 108, BUN 20, GFR 58, AST 62, CK-MB percent 1.6. Troponin I less than 0.02, lipase 77, TSH 0.808, and ammonia level is normal at 29. PT 10.8, PTT 25.4. Urine drug screen is positive for benzodiazepines and cannabinoids, alcohol level less than 3, urinalysis showed 30 proteins and ketones 8 RBCs otherwise unremarkable. Chest x-ray shows no acute abnormality. The patient had IV fluids administered for rhabdomyolysis. A Shirley catheter was placed to gravity to assess patient's urine output and because of recent problems with urinary retention noted in the patient's record. The patient's results were discussed with the patient, including the plan of care. I explained that further testing and/ or monitoring is indicated based on the patient's history, examination, and/ or laboratory findings. Therefore, I recommended admission for additional evaluation. The patient expressed understanding and was agreeable with this plan. The patient was admitted to the hospital in stable condition and sent to a bed under the care of the [facility] service. Physician Communication Physician Communication The patient's case including history, pertinent physical examination findings, and laboratory studies were discussed with Dr. Merida. It was agreed that the patient would be admitted to the [facility] service. Diagnosis Primary Impression: Altered mental status Qualified Codes: R41.0 - Disorientation, unspecified Additional Impression: Rhabdomyolysis Admitting Information Admitting Physician Requests: Admit Yu Stokes MD Aug 05, 2017 22:26
--- NOTE | 2017-08-05 22:38 | RADRPT ---
EXAM DATE/TIME: 08/05/2017 22:27 [place] COMPARISON: CHEST SINGLE AP, July 06, 2017, 16:09. INDICATIONS : Altered mental status. MEDICAL HISTORY : Renal calculi. Hypertension. Diabetes mellitus type 2. SURGICAL HISTORY : Fusion, lumbar. ENCOUNTER: Initial ACUITY: 1 day PAIN SCORE: Non-responsive. LOCATION: Bilateral chest FINDINGS: A single view of the chest demonstrates the lungs to be symmetrically aerated without evidence of mas s, infiltrate or effusion. The cardiomediastinal contours are unremarkable. Sternotomy wires are pre sent. The previous thoracolumbar spinal fusion with hardware.. CONCLUSION: No acute disease Abran Mendoza MD on August 05, 2017 at 22:35 Board Certified Radiologist. This report was verified electronically.
[2017-08-05 22:45] LABS: AUTOMATED NEUTROPHIL # 5.2 TH/MM3 (1.8-7.7); BASOPHIL # 0.1 TH/MM3 (0-0.2); BASOPHIL % 0.7 % (0.0-2.0); EOSINOPHIL # 0.1 TH/MM3 (0-0.4); EOSINOPHIL % 1.1 % (0.0-4.0); HEMATOCRIT 42.7 % (39.0-51.0); HEMOGLOBIN 14.5 GM/DL (13.0-17.0); LYMPH % 15.6 % (9.0-44.0); LYMPHOCYTE # 1.1 TH/MM3 (1.0-4.8); MEAN CELL VOLUME 84.9 FL (80.0-100.0); MEAN CORPUSCULAR HEMOGLOBIN 28.8 PG (27.0-34.0); MEAN CORPUSCULAR HGB CONC 33.9 % (32.0-36.0); MONO % 10.9 % (0.0-8.0); MONOCYTE # 0.8 TH/MM3 (0-0.9); NEUT % 71.7 % (16.0-70.0); PLATELET COUNT 166 TH/MM3 (150-450); RED BLOOD COUNT 5.03 MIL/MM3 (4.50-5.90); RED CELL DISTRIBUTION WIDTH 14.4 % (11.6-17.2); WHITE BLOOD COUNT 7.2 TH/MM3 (4.0-11.0)
[2017-08-05 22:54] LABS: INTERNATIONAL NORMALIZED RATIO 1.1 RATIO; PROTHROMBIN TIME - PATIENT 10.8 SEC (9.8-11.6)
[2017-08-05 23:14] LABS: ALKALINE PHOSPHATASE 98 U/L (45-117); ALT (GPT) 35 U/L (12-78); AST (GOT) 62 U/L (15-37); BICARBONATE 25.8 MEQ/L (21.0-32.0); BLOOD UREA NITROGEN 20 MG/DL (7-18); CALCIUM 8.6 MG/DL (8.5-10.1); CHLORIDE 108 MEQ/L (98-107); CREATININE 1.29 MG/DL (0.60-1.30); GLOMERULAR FILTRATION RATE 58 ML/MIN (>89); GLUCOSE,RANDOM 88 MG/DL (74-106); SODIUM (NA) 141 MEQ/L (136-145); TOTAL BILIRUBIN ADULT 0.7 MG/DL (0.2-1.0); TOTAL PROTEIN 7.7 GM/DL (6.4-8.2); TROPONIN I LESS THAN 0.02 NG/ML (0.02-0.05)
[2017-08-05] MEDS ORDERED: LORazepam 2 MG/ML VIAL ONE (23:47)
[2017-08-06] VITALS (13 sets, daily range): BP systolic 116–158; BP diastolic 65–92; PULSE 56–105; RESP 12–18; TEMP 97.2–99.6; O2SAT 91–99
[2017-08-06] MEDS ORDERED: SODIUM CHLOR 0.9% 1000 ML INJ 1,000 ML IV ONE
[2017-08-06] MEDS ORDERED: LORazepam 2 MG/ML VIAL IV PUSH ONE
[2017-08-06 00:31] LABS: BILIRUBIN, URINE NEG (NEG); BLOOD, URINE NEG (NEG); GLUCOSE,URINE NEG (NEG); KETONE, URINE 10 mg/dL (NEG); MUCUS URINE FEW /lpf (OCC); NITRITE,URINE NEG (NEG); URINE COLOR YELLOW (YELLW/STRAW); URINE LEUKOCYTE ESTERASE NEG (NEG)
[2017-08-06] MEDS ORDERED: ONDANSETRON HCL 4 MG/2 ML VIAL IVP PRN (01:30)
[2017-08-06] MEDS ORDERED: MAGNESIUM HYDROXIDE SUSP 30 ML CUP PO PRN (01:30)
[2017-08-06] MEDS ORDERED: ACETAMINOPHEN 325 MG TAB PO PRN (01:30)
[2017-08-06] MEDS ORDERED: SODIUM CHLORIDE 0.9% FLUSH 10 ML FLUSH IV FLUSH PRN (01:30)
[2017-08-06] MEDS ORDERED: SENNOSIDES 8.6 MG TAB PO PRN (01:30)
[2017-08-06] MEDS ORDERED: FLUMAZENIL 0.5 MG/5 ML VIAL IV PUSH PRN ×2 (01:30→11:45)
[2017-08-06] MEDS ORDERED: NALOXONE HCL 0.4 MG/ML AMP IV PUSH PRN (01:30)
[2017-08-06] MEDS ORDERED: BISACODYL 10 MG SUPP RECTAL PRN (01:30)
[2017-08-06] MEDS ORDERED: LACTULOSE SYRUP 20 GM/30 ML CUP PO PRN (01:30)
--- NOTE | 2017-08-06 01:37 | HHI.HP ---
HPI Service [facility] Hospitalists Primary Care Physician No Primary Care Physician Admission Diagnosis AMS, Rhabdomyolysis Diagnoses: Travel History International Travel<30 Days: No Contact w/Intl Traveler <30 Da: No Traveled to Known Affected Are: No History of Present Illness The patient is a 56-year-old male with past medical history of CABG, hypertension, hepatitis C, dementia, bipolar disorder, seizure disorder, history of CVA who presents to [facility] ED with altered mental status. Per emergency department documentation, the patient was residing at home when he became combative. EMS found the patient to be so agitated that they found it difficult to assess him. The patient was given 2 mg of Versed and round the emergency department. On arrival to the emergency department he remained agitated and was given Ativan. At the time of our interview, the patient is sleeping. He is arousable to voice however does not answer questions. He has a known history of bipolar disorder and dementia and reportedly smokes marijuana on a daily basis. Review of Systems ROS Limitations: Clinical Condition Unable to obtain secondary to clinical condition Past Family Social History Past Medical History (Obtained from medical records) Dementia Bipolar disorder Hepatitis C Coronary artery disease Seizures History of CVA Past Surgical History CABG x 2 Reported Medications Reported Meds & Active Scripts Active Reported Proair Hfa 8.5 GM Inh (Albuterol Sulfate) 90 Mcg/Act Aer 2 Puff INH Q4HR PRN 108 mcg/actuation Vistaril (Hydroxyzine Pamoate) 25 Mg Cap 50 Mg PO HS Omeprazole 20 Mg Tab 20 Mg PO DAILY Simvastatin 40 Mg Tab 40 Mg PO HS Duloxetine DR (Duloxetine HCl) 30 Mg Capdr 30 Mg PO DAILY Buspirone (Buspirone HCl) 10 Mg Tab 20 Mg PO TID Baclofen 10 Mg Tab 10 Mg PO QID Seroquel (Quetiapine Fumarate) 400 Mg Tab 400 Mg PO HS Atenolol 25 Mg Tab 25 Mg PO DAILY Trazodone (Trazodone HCl) 100 Mg Tablet 200 Mg PO HS Allergies: Coded Allergies: acetaminophen (Verified Adverse Reaction, Unknown, LIVER, 07/31/17) Family History Unable to obtain Social History Unable to obtain Physical Exam Vital Signs Vital Signs Date Time Temp Pulse Resp B/P (MAP) Pulse Ox O2 Delivery O2 Flow Rate FiO2 08/05/17 22:19 95 08/05/17 22:08 65 14 08/05/17 22:06 98.6 67 13 118/75 (89) 100 Physical Exam GENERAL: Disheveled male lying in bed, sleeping in 2 point restraints SKIN: No rashes, ecchymoses or lesions. Cool and dry. HEAD: Atraumatic. Normocephalic. EYES: Pupils are dilated and sluggish. Extraocular motions intact. No scleral icterus. No injection or drainage. ENT: Nose without bleeding, purulent drainage or septal hematoma. Throat without erythema, tonsillar hypertrophy or exudate. Uvula midline. Airway patent. NECK: Trachea midline. No JVD or lymphadenopathy. Supple, nontender, no meningeal signs. CARDIOVASCULAR: Regular rate and rhythm without murmurs, gallops, or rubs. RESPIRATORY: Clear to auscultation. Breath sounds equal bilaterally. No wheezes , rales, or rhonchi. GASTROINTESTINAL: Abdomen soft, nondistended. No hepato-splenomegaly, or palpable masses. MUSCULOSKELETAL: Extremities without clubbing, cyanosis, or edema. No joint tenderness, effusion, or edema noted. NEUROLOGICAL: Awake and alert. Cranial nerves II through XII intact. Motor and sensory grossly within normal limits. Normal speech. Laboratory Laboratory Tests Test 08/05/17 22:20 08/05/17 22:24 08/06/17 00:10 White Blood Count 7.2 Red Blood Count 5.03 Hemoglobin 14.5 Hematocrit 42.7 Mean Corpuscular Volume 84.9 Mean Corpuscular Hemoglobin 28.8 Mean Corpuscular Hemoglobin Concent 33.9 Red Cell Distribution Width 14.4 Platelet Count 166 Mean Platelet Volume 8.0 Neutrophils (%) (Auto) 71.7 Lymphocytes (%) (Auto) 15.6 Monocytes (%) (Auto) 10.9 Eosinophils (%) (Auto) 1.1 Basophils (%) (Auto) 0.7 Neutrophils # (Auto) 5.2 Lymphocytes # (Auto) 1.1 Monocytes # (Auto) 0.8 Eosinophils # (Auto) 0.1 Basophils # (Auto) 0.1 CBC Comment DIFF FINAL Differential Comment Prothrombin Time 10.8 Prothromb Time International Ratio 1.1 Activated Partial Thromboplast Time 25.4 Blood Urea Nitrogen 20 Creatinine 1.29 Random Glucose 88 Total Protein 7.7 Albumin 4.0 Calcium Level 8.6 Magnesium Level 2.0 Alkaline Phosphatase 98 Aspartate Amino Transf (AST/SGOT) 62 Alanine Aminotransferase (ALT/SGPT) 35 Total Bilirubin 0.7 Sodium Level 141 Potassium Level 4.3 Chloride Level 108 Carbon Dioxide Level 25.8 Anion Gap 7 Estimat Glomerular Filtration Rate 58 Total Creatine Kinase 1340 Creatine Kinase MB 20.8 Creatine Kinase MB % 1.6 Troponin I LESS THAN 0.02 Lipase 77 Thyroid Stimulating Hormone 3rd Gen 0.808 Ethyl Alcohol Level LESS THAN 3 Ammonia 29 Urine Color YELLOW Urine Turbidity CLEAR Urine pH 6.0 Urine Specific [place] 1.028 Urine Protein 30 Urine Glucose (UA) NEG Urine Ketones 10 Urine Occult Blood NEG Urine Nitrite NEG Urine Bilirubin NEG Urine Urobilinogen LESS THAN 2.0 Urine Leukocyte Esterase NEG Urine RBC 8 Urine WBC 1 Urine Mucus FEW Microscopic Urinalysis Comment CULT NOT INDICATED Urine Opiates Screen NEG Urine Barbiturates Screen NEG Urine Amphetamines Screen NEG Urine Benzodiazepines Screen POS Urine Cocaine Screen NEG Urine Cannabinoids Screen POS Result Diagram: 08/05/17221908/05/172219 Caprini VTE Risk Assessment Caprini VTE Risk Assessment: No/Low Risk (score <= 1) Caprini Risk Assessment Model Point Value = 1 Point Value = 2 Point Value = 3 Point Value = 5 Age 41-60 Minor surgery BMI > 25 kg/m2 Swollen legs Varicose veins or History of unexplained or recurrent spontaneous Oral contraceptives or hormone replacement Sepsis (< 1 month) Serious lung disease, including pneumonia (< 1 month) Abnormal pulmonary function Acute myocardial infarction Congestive heart failure (< 1 month) History of inflammatory bowel disease Medical patient at bed rest Age 61-74 Arthroscopic surgery Major open surgery (> 45 min) Laparoscopic surgery (> 45 min) Malignancy Confined to bed (> 72 hours) Immobilizing plaster cast Central venous access Age >= 75 History of VTE Family history of VTE Factor V Leiden Prothrombin [id number] Lupus anticoagulant Anticardiolipin antibodies Elevated serum homocysteine Heparin-induced thrombocytopenia Other congenital or acquired thrombophilia Stroke (< 1 month) Elective arthroplasty Hip, pelvis, or leg fracture Acute spinal cord injury (< 1 month) Prophylaxis Regimen Total Risk Factor Score Risk Level Prophylaxis Regimen 0-1 Low Early ambulation 2 Moderate Order ONE of the following: *Sequential Compression Device (SCD) *Heparin 5000 units SQ BID 3-4 Higher Order ONE of the following medications: *Heparin 5000 units SQ TID *Enoxaparin/Lovenox 40 mg SQ daily (WT < 150 kg, CrCl > 30 mL/min) *Enoxaparin/Lovenox 30 mg SQ daily (WT < 150 kg, CrCl > 10-29 mL/min) *Enoxaparin/Lovenox 30 mg SQ BID (WT < 150 kg, CrCl > 30 mL/min) AND/OR *Sequential Compression Device (SCD) 5 or more Highest Order ONE of the following medications: *Heparin 5000 units SQ TID (Preferred with Epidurals) *Enoxaparin/Lovenox 40 mg SQ daily (WT < 150 kg, CrCl > 30 mL/min) *Enoxaparin/Lovenox 30 mg SQ daily (WT < 150 kg, CrCl > 10-29 mL/min) *Enoxaparin/Lovenox 30 mg SQ BID (WT < 150 kg, CrCl > 30 mL/min) AND *Sequential Compression Device (SCD) Assessment and Plan Assessment and Plan Assessment/plan: 1. Rhabdomyolysis CK 1340 IV fluid hydration Monitor renal function 2. Altered mental status/psychosis Likely components of bipolar disorder and dementia Acute intoxication also a consideration Urine drug screen pending Psychiatry consulted, appreciate recommendations 3. Hyperlipidemia/hypertension Continue home medications 4. Substance abuse CIWA protocol Monitor for signs of withdrawal FEN Regular diet Electrolytes: monitor and replete prn SCDs Physician Certification 2 Midnight Certification Type: Admission for Inpatient Services Order for Inpatient Services The services are ordered in accordance with Medicare regulations or non- Medicare payer requirements, as applicable. In the case of services not specified as inpatient-only, they are appropriately provided as inpatient services in accordance with the 2-midnight benchmark. Estimated LOS (days): 2 2 days is the estimated time the patient will need to remain in the hospital, assuming treatment plan goals are met and no additional complications. Post-Hospital Plan: Not yet determined Darcie Merida MD Aug 06, 2017 01:37
[2017-08-06] MEDS: SODIUM CHLOR 0.9% 1000 ML INJ 1,000 ML IV SCH ×3 (02:17→14:08)
[2017-08-06] MEDS: LORazepam 2 MG/ML VIAL IV PUSH PRN ×9 (02:18→23:39)
[2017-08-06] MEDS: SODIUM CHLORIDE 0.9% FLUSH 10 ML FLUSH IV FLUSH SCH ×2 (08:21→21:21)
[2017-08-06] MEDS: DOCUSATE SODIUM 50 MG/SENNA 8.6 MG TAB PO SCH ×2 (09:00→21:22)
[2017-08-06] MEDS ORDERED: ATENOLOL 25 MG TAB PO SCH (09:00)
--- NOTE | 2017-08-06 12:00 | HHI.PR ---
Subjective Remarks In DTs. Patient very agitated CIWA 15. Patient is in restraints. No hallucinations at this time. Objective Vitals Vital Signs Date Time Temp Pulse Resp B/P (MAP) Pulse Ox O2 Delivery O2 Flow Rate FiO2 08/06/17 11:44 98.2 105 18 116/79 (91) 91 08/06/17 07:58 98.0 77 16 138/65 (89) 98 08/06/17 04:00 97.2 56 16 156/75 (102) 99 08/06/17 03:27 97.2 65 16 158/77 (104) 99 08/06/17 02:11 59 12 131/69 (89) 97 Nasal Cannula 2.00 08/06/17 00:00 74 12 129/69 (89) 97 Nasal Cannula 2.00 08/05/17 22:19 95 08/05/17 22:08 65 14 08/05/17 22:06 98.6 67 13 118/75 (89) 100 I/O 08/05/17 08/05/17 08/05/17 08/06/17 08/06/17 08/06/17 07:00 15:00 23:00 07:00 15:00 23:00 Intake Total 1000 ml 958 ml Output Total 475 ml 200 ml Balance 525 ml 758 ml Intake IV Total 1000 ml 958 ml Output Urine Total 475 ml 200 ml # Voids 0 Result Diagram: 08/05/17221908/05/172219 Imaging Last Impressions Chest X-Ray 08/05/172212 Signed Impressions: Service Date/Time: Saturday, August 05, 2017 22:27 - CONCLUSION: No acute disease Abran Mendoza MD Objective Remarks GENERAL: Disheveled male lying in bed, agitated on/off, on 2 point restraints CARDIOVASCULAR: Regular rate and rhythm without murmurs, gallops, or rubs. RESPIRATORY: Clear to auscultation. Breath sounds equal bilaterally. No wheezes , rales, or rhonchi. GASTROINTESTINAL: Abdomen soft, nondistended. MUSCULOSKELETAL: Extremities without clubbing, cyanosis, or edema. No joint tenderness, effusion, or edema noted. NEUROLOGICAL: Awake and alert, agitated. Cranial nerves grossly intact. Moves limbs. Normal speech. A/P Assessment and Plan Rhabdomyolysis CK 1340 on admission. Trend Continue IV fluid hydration Monitor renal function Altered mental status/psychosis EtOH withdrawals with DTs Likely components of bipolar disorder and dementia Acute intoxication Urine drug screen pending Psychiatry consulted, appreciate recommendations On CIWA protocol patient with high score. Add haldol. Add thymine and MVT IV, continue IVF. Monitor closely lytes and replace. Might need to be transferred to ICU for propofol if CIWA consistent high Hyperlipidemia/hypertension Continue home medications FEN Regular diet Electrolytes: monitor and replete prn SCDs Anabel Gonzalez MD Aug 06, 2017 12:00
[2017-08-06] MEDS: HALOPERIDOL LACTATE 5 MG/ML AMP IM PRN ×2 (12:18→16:53)
[2017-08-06] MEDS ORDERED: DEXTROSE 50% IN WATER 50 ML VIAL(D50) IV PUSH PRN (13:30)
[2017-08-06] MEDS ORDERED: GLUCAGON 1 MG/ML VIAL OTHER PRN (13:30)
[2017-08-06] MEDS: THIAMINE INJ 100 MG in SODIUM CHLORIDE 0.9% INJ 100 ML IV SCH (13:32)
--- NOTE | 2017-08-06 13:57 | PD.PSY.CON ---
Provisional Diagnosis Admission Date Aug 06, 2017 at 00:35 Oark I. Delirium due to another underlying medical condition, most probably related with alcohol withdrawal, documented history of alcohol use disorder, reported history of dementia and bipolar disorder Oark II. Deferred Oark III. Hypertension, hypothyroidism, hepatitis C Oark IV. Alcohol use disorder Oark V. 50 History of Present Illness Service Psychiatry Consult Requested By Medical team Reason for Consult Delirium Primary Care Physician No Primary Care Physician HPI The patient is a 56-year-old male with past medical history of CABG, hypertension, hepatitis C, dementia, bipolar disorder, seizure disorder, history of CVA who presents to [facility] ED with altered mental status. Per emergency department documentation, the patient was residing at home when he became combative. EMS found the patient to be so agitated that they found it difficult to assess him. The patient was given 2 mg of Versed and round the emergency department. On arrival to the emergency department he remained agitated and was given Ativan. At the time of our interview, the patient is sleeping. He is arousable to voice however does not answer questions. He has a known history of bipolar disorder and dementia and reportedly smokes marijuana on a daily basis. On psychiatric evaluation today, patient is restrained in 4 points, disorganized, disoriented, unable to provide any meaningful information for the psychiatric assessment at this moment. Patient is very restless and agitated, sweating, could be in Paul alcohol withdrawal. Review of Systems ROS Limitations: Unresponsive, Uncooperative Past Family Social History Coded Allergies: acetaminophen (Verified Adverse Reaction, Unknown, LIVER, 07/31/17) Reported Medications Albuterol 8.5 GM Inh (Proair Hfa 8.5 GM Inh) 90 Mcg/Act Aer, 2 PUFF INH Q4HR Y for SHORTNESS OF BREATH, #1 INHALER 0 Refills 108 mcg/actuation 07/04/17 Hydroxyzine Pamoate (Vistaril) 25 Mg Cap, 50 MG PO HS for Insomnia, CAP 0 Refills 06/12/17 Omeprazole (Omeprazole) 20 Mg Tab, 20 MG PO DAILY, #30 TAB 0 Refills 06/09/17 Simvastatin (Simvastatin) 40 Mg Tab, 40 MG PO HS for Cholesterol Management, # 30 TAB 0 Refills 06/09/[address] (Duloxetine DR) 30 Mg Capdr, 30 MG PO DAILY, #30 CAP 0 Refills 06/09/17 Buspirone (Buspirone) 10 Mg Tab, 20 MG PO TID for Anxiety, TAB 0 Refills 06/09/17 Baclofen (Baclofen) 10 Mg Tab, 10 MG PO QID for Muscle Spasm, TAB 0 Refills 06/09/17 Quetiapine (Seroquel) 400 Mg Tab, 400 MG PO HS, #30 TAB 0 Refills 06/09/17 Atenolol (Atenolol) 25 Mg Tab, 25 MG PO DAILY for Blood Pressure Management, # 30 TAB 06/09/17 Trazodone (Trazodone) 100 Mg Tablet, 200 MG PO HS for Control Depression, #30 TAB 0 Refills 06/09/17 Discontinued Reported Medications Lisinopril (Lisinopril) 10 Mg Tab, 10 MG PO DAILY, #30 TAB 0 Refills 06/09/17 Discontinued Scripts Azithromycin (Azithromycin) 250 Mg Tab, 250 MG PO DIRECTED for Infection, #6 TAB 0 Refills Take 2 tabs (500 mg) on day 1 then 1 tab daily x 4 days. Prov:Mariusz Norwood MD 07/16/17 Prednisone (Prednisone) 20 Mg Tab, 60 MG PO DAILY for 5 Days, #15 TAB 0 Refills Prov:Mariusz Norwood MD 07/16/17 Current Medications Medications (Trade) Dose Ordered Sig/Ria Route Start Time Stop Time Status Last Admin (Ativan Inj) 1 mg Q2H PRN IV PUSH 08/06/17 01:30 Sodium Chloride 1,000 ml @ 175 mls/hr Q5H43M IV 08/06/17 01:19 08/06/17 08:01 (NS Flush) 2 ml UNSCH PRN IV FLUSH 08/06/17 01:30 (NS Flush) 2 ml BID IV FLUSH 08/06/17 09:00 (Tylenol) 650 mg Q4H PRN PO 08/06/17 01:30 (Zofran Inj) 4 mg Q6H PRN IVP 08/06/17 01:30 (Narcan Inj) 0.4 mg UNSCH PRN IV PUSH 08/06/17 01:30 (Brooke-Colace) 1 tab BID PO 08/06/17 09:00 (Milk Of Magnesia Liq) 30 ml Q12H PRN PO 08/06/17 01:30 (Senokot) 17.2 mg Q12H PRN PO 08/06/17 01:30 (Dulcolax Supp) 10 mg DAILY PRN RECTAL 08/06/17 01:30 (Lactulose Liq) 30 ml DAILY PRN PO 08/06/17 01:30 (Ativan) 1 mg Q4H PRN PO 08/06/17 01:30 (Ativan Inj) 1 mg Q4H PRN IV PUSH 08/06/17 01:30 (Ativan) 2 mg Q2H PRN PO 08/06/17 01:30 (Ativan Inj) 2 mg Q2H PRN IV PUSH 08/06/17 01:30 08/06/17 11:38 (Ativan Inj) 2 mg Q1H PRN IV PUSH 08/06/17 01:30 08/06/17 09:56 (Ativan Inj) 2 mg Q15M PRN IV PUSH 08/06/17 01:30 (Tenormin) 25 mg DAILY PO 08/06/17 09:00 (Pravachol) 80 mg HS PO 08/06/17 21:00 (Pneumovax-23 Inj) 25 mcg ONCE ONCE IM 08/07/17 10:00 08/07/17 10:01 Multivitamins 10 ml/Folic Acid 1 mg/Sodium Chloride 510.2 ml @ 125 mls/hr Q24H IV 08/06/17 13:00 08/11/17 12:59 Thiamine HCl 100 mg/Sodium Chloride 101 ml @ 100 mls/hr Q24H IV 08/06/17 13:00 08/09/17 12:59 (Vitamin B1) 100 mg DAILY PO 08/10/17 09:00 (Catapres) 0.1 mg Q6H PRN PO 08/06/17 13:00 (Romazicon Inj) 0.2 mg Q1M PRN IV PUSH 08/06/17 11:45 (Haldol Inj) 2 mg Q15M PRN IM 08/06/17 13:00 08/06/17 12:18 (D50w (Vial) Inj) 50 ml UNSCH PRN IV PUSH 08/06/17 13:30 UNV (Glucagon Inj) 1 mg UNSCH PRN OTHER 08/06/17 13:30 UNV Physical Exam Vital Signs Vital Signs Date Time Temp Pulse Resp B/P (MAP) Pulse Ox O2 Delivery O2 Flow Rate FiO2 08/06/17 13:46 Nasal Cannula 2.00 08/06/17 11:44 98.2 105 18 116/79 (91) 91 I/O 08/06/17 08/06/17 08/06/17 07:59 15:59 23:59 Intake Total 1958 ml Output Total 475 ml 200 ml Balance 1483 ml -200 ml Lab Results Test 08/05/17 22:20 08/05/17 22:24 08/06/17 00:10 White Blood Count 7.2 TH/MM3 Red Blood Count 5.03 MIL/MM3 Hemoglobin 14.5 GM/DL Hematocrit 42.7 % Mean Corpuscular Volume 84.9 FL Mean Corpuscular Hemoglobin 28.8 PG Mean Corpuscular Hemoglobin Concent 33.9 % Red Cell Distribution Width 14.4 % Platelet Count 166 TH/MM3 Mean Platelet Volume 8.0 FL Neutrophils (%) (Auto) 71.7 % Lymphocytes (%) (Auto) 15.6 % Monocytes (%) (Auto) 10.9 % Eosinophils (%) (Auto) 1.1 % Basophils (%) (Auto) 0.7 % Neutrophils # (Auto) 5.2 TH/MM3 Lymphocytes # (Auto) 1.1 TH/MM3 Monocytes # (Auto) 0.8 TH/MM3 Eosinophils # (Auto) 0.1 TH/MM3 Basophils # (Auto) 0.1 TH/MM3 CBC Comment DIFF FINAL Differential Comment Prothrombin Time 10.8 SEC Prothromb Time International Ratio 1.1 RATIO Activated Partial Thromboplast Time 25.4 SEC Blood Urea Nitrogen 20 MG/DL Creatinine 1.29 MG/DL Random Glucose 88 MG/DL Total Protein 7.7 GM/DL Albumin 4.0 GM/DL Calcium Level 8.6 MG/DL Magnesium Level 2.0 MG/DL Alkaline Phosphatase 98 U/L Aspartate Amino Transf (AST/SGOT) 62 U/L Alanine Aminotransferase (ALT/SGPT) 35 U/L Total Bilirubin 0.7 MG/DL Sodium Level 141 MEQ/L Potassium Level 4.3 MEQ/L Chloride Level 108 MEQ/L Carbon Dioxide Level 25.8 MEQ/L Anion Gap 7 MEQ/L Estimat Glomerular Filtration Rate 58 ML/MIN Total Creatine Kinase 1340 U/L Creatine Kinase MB 20.8 NG/ML Creatine Kinase MB % 1.6 % Troponin I LESS THAN 0.02 NG/ML Lipase 77 U/L Thyroid Stimulating Hormone 3rd Gen 0.808 uIU/ML Ethyl Alcohol Level LESS THAN 3 MG/DL Ammonia 29 MCMOL/L Urine Color YELLOW Urine Turbidity CLEAR Urine pH 6.0 Urine Specific [place] 1.028 Urine Protein 30 mg/dL Urine Glucose (UA) NEG mg/dL Urine Ketones 10 mg/dL Urine Occult Blood NEG Urine Nitrite NEG Urine Bilirubin NEG Urine Urobilinogen LESS THAN 2.0 MG/DL Urine Leukocyte Esterase NEG Urine RBC 8 /hpf Urine WBC 1 /hpf Urine Mucus FEW /lpf Microscopic Urinalysis Comment CULT NOT INDICATED Urine Opiates Screen NEG Urine Barbiturates Screen NEG Urine Amphetamines Screen NEG Urine Benzodiazepines Screen POS Urine Cocaine Screen NEG Urine Cannabinoids Screen POS Mental Status Examination Appearance: Disheveled Consciousness: Obtunded, Clouded Mental Status Exam Remarks Limited due to the level of delirium. Assessment & Plan Problem List: (1) Delirium due to another medical condition ICD Codes: F05 - Delirium due to known physiological condition Assessment & Plan: Significant evaluation today the patient is very disorganized, inattentive, unable to provide any significant information for the psychiatric assessment. In spite of multiple attempts, the patient did not answer any of my questions. He does recent agitation, restlessness, which seems to be consistent with delirium, most probably related with alcohol withdrawal. Continue CIWA protocol. Would order quetiapine 25 mg twice a day to help with delirium, Haldol 2 mg every 8 hours when necessary aggressive behavior and agitation. QTc interval is 433. Frequent reorientation, appropriate lights in the units, familiar faces around the bed, sensory stimulation could also be very helpful. We'll follow-up. Assessment & Plan Estimated LOS: Fam Millan MD Aug 06, 2017 13:57
[2017-08-06] MEDS: MULTIVITAMIN INJ 10 ML, FOLIC ACID INJ 1 MG in SODIUM CHLORID 0.9% 500 ML INJ 500 ML IV SCH (15:37)
--- NOTE | 2017-08-06 19:19 | EKG ---
Date Performed: 08/05/2017 Time Performed: 23:54:00 PTAGE: 56 years EKG: Sinus rhythm INDETERMINATE AXIS INCOMPLETE RIGHT BUNDLE BRANCH BLOCK BORDERLINE ECG PREVIOUS TRACING : 07/06/2017 16.19 DOCTOR: Shabana Hendrickson Interpretating Date/Time 08/06/2017 19:17:53
--- NOTE | 2017-08-06 19:49 | PD.CONS ---
HPI Service Critical Care Medicine Consult Requested By Dr. Gonzalez Reason for Consult Medical management of DT's Primary Care Physician No Primary Care Physician History of Present Illness 56 year old male with past mental history of alcohol dependence, dementia, bipolar disorder, CAD with prior CABG, prior stroke, hepatitis C who presented to [facility] emergency department 08/05/17 when he became combative. He arrived via [facility] and had received Versed CHAIN PULLER. He was admitted to hospitalist service and has been on CIWA protocol receiving Ativan 2 mg IV q 1- 2 hours and Haldol 2mg IM. Despite this, he remains agitated and delirious and Dr. Gonzalez has requested salt lifter consult because he may need adjunctive drips to manage delirium. Patient is oriented to name, hospital. He denies pain Review of Systems ROS Limitations: Clinical Condition Past Family Social History Allergies: Coded Allergies: acetaminophen (Verified Adverse Reaction, Unknown, LIVER, 07/31/17) Past Medical History Dementia Bipolar disorder Anxiety GERD Hepatitis C Coronary artery disease with prior CABG Hypertension Hyperlipidemia Prior seizure during childhood Prior stroke Past Surgical History CABG Reported Medications Albuterol 2 puffs inhaled every 4 hours Baclofen 10 mg by mouth 4 times a day Simvastatin 40 g by mouth daily at bedtime Atenolol 25 mg by mouth daily Duloxetine 30 g by mouth daily Trazodone 200 mg by mouth daily at bedtime Seroquel 400 mg by mouth daily at bedtime Buspirone 20 mill grams by mouth 3 times a day Vistaril 50 mEq by mouth daily at bedtime Omeprazole 20 mill grams by mouth daily Family History Unable to obtain from patient due to clinical condition. Social History Unable to obtain from patient due to critical condition. Reviewed records which indicates he uses marijuana regularly Urine drug screen positive for benzodiazepines and cannabinoids. Physical Exam Vital Signs Vital Signs Date Time Temp Pulse Resp B/P (MAP) Pulse Ox O2 Delivery O2 Flow Rate FiO2 08/06/17 17:34 98 08/06/17 16:18 99.6 97 18 146/92 (110) 98 08/06/17 13:46 Nasal Cannula 2.00 08/06/17 13:00 101 08/06/17 11:44 98.2 105 18 116/79 (91) 91 08/06/17 10:00 95 08/06/17 07:58 98.0 77 16 138/65 (89) 98 08/06/17 04:00 97.2 56 16 156/75 (102) 99 08/06/17 03:27 97.2 65 16 158/77 (104) 99 08/06/17 02:11 59 12 131/69 (89) 97 Nasal Cannula 2.00 08/06/17 00:00 74 12 129/69 (89) 97 Nasal Cannula 2.00 08/05/17 22:19 95 08/05/17 22:08 65 14 08/05/17 22:06 98.6 67 13 118/75 (89) 100 Physical Exam Temp 99.6. Pulse 91 with sinus rhythm on the monitor blood pressure 153/83 sats 95% on 2 L nasal cannula. GENERAL: Well-nourished, well-developed patient who is laying in [facility] bed, restless, agitated moving all extremities SKIN: Warm and dry, adequately perfused. HEAD: Atraumatic. Normocephalic. EYES: Pupils equal and round, 5 mm and reactive to 3 mm bilaterally. No scleral icterus. No injection or drainage. ENT: No nasal bleeding or discharge. Mucous membranes pink NECK: Trachea midline. No JVD. CARDIOVASCULAR: Regular rate and rhythm, sinus rhythm on the monitor. No murmurs rubs or gallops. RESPIRATORY: Mildly tachypneic but appears comfortable with no accessory muscle use. Clear to auscultation. Breath sounds equal bilaterally. GASTROINTESTINAL: Abdomen soft, non-tender, nondistended. Bowel sounds present. : Shirley in place with yellow urine output. MUSCULOSKELETAL: Extremities without clubbing, cyanosis, or edema. No obvious deformities. NEUROLOGICAL: Awake and alert. Oriented to self, "hospital". Did not answer when I asked year. No obvious cranial nerve deficits. No nystagmus. Motor grossly within normal limits agitated and moving all extremities. Tremulous. Laboratory Laboratory Tests Test 08/05/17 22:20 08/05/17 22:24 08/06/17 00:10 White Blood Count 7.2 Red Blood Count 5.03 Hemoglobin 14.5 Hematocrit 42.7 Mean Corpuscular Volume 84.9 Mean Corpuscular Hemoglobin 28.8 Mean Corpuscular Hemoglobin Concent 33.9 Red Cell Distribution Width 14.4 Platelet Count 166 Mean Platelet Volume 8.0 Neutrophils (%) (Auto) 71.7 Lymphocytes (%) (Auto) 15.6 Monocytes (%) (Auto) 10.9 Eosinophils (%) (Auto) 1.1 Basophils (%) (Auto) 0.7 Neutrophils # (Auto) 5.2 Lymphocytes # (Auto) 1.1 Monocytes # (Auto) 0.8 Eosinophils # (Auto) 0.1 Basophils # (Auto) 0.1 CBC Comment DIFF FINAL Differential Comment Prothrombin Time 10.8 Prothromb Time International Ratio 1.1 Activated Partial Thromboplast Time 25.4 Blood Urea Nitrogen 20 Creatinine 1.29 Random Glucose 88 Total Protein 7.7 Albumin 4.0 Calcium Level 8.6 Magnesium Level 2.0 Alkaline Phosphatase 98 Aspartate Amino Transf (AST/SGOT) 62 Alanine Aminotransferase (ALT/SGPT) 35 Total Bilirubin 0.7 Sodium Level 141 Potassium Level 4.3 Chloride Level 108 Carbon Dioxide Level 25.8 Anion Gap 7 Estimat Glomerular Filtration Rate 58 Total Creatine Kinase 1340 Creatine Kinase MB 20.8 Creatine Kinase MB % 1.6 Troponin I LESS THAN 0.02 Lipase 77 Thyroid Stimulating Hormone 3rd Gen 0.808 Ethyl Alcohol Level LESS THAN 3 Ammonia 29 Urine Color YELLOW Urine Turbidity CLEAR Urine pH 6.0 Urine Specific [place] 1.028 Urine Protein 30 Urine Glucose (UA) NEG Urine Ketones 10 Urine Occult Blood NEG Urine Nitrite NEG Urine Bilirubin NEG Urine Urobilinogen LESS THAN 2.0 Urine Leukocyte Esterase NEG Urine RBC 8 Urine WBC 1 Urine Mucus FEW Microscopic Urinalysis Comment CULT NOT INDICATED Urine Opiates Screen NEG Urine Barbiturates Screen NEG Urine Amphetamines Screen NEG Urine Benzodiazepines Screen POS Urine Cocaine Screen NEG Urine Cannabinoids Screen POS Result Diagram: 08/05/17221908/05/172219 Assessment and Plan Assessment and Plan NEURO: Agitated delirium appears consistent with alcohol/benzo withdrawal Bipolar disorder h/o dementia History of polysubstance abuse Continue CIWA protocol Haldol 2 mg IM q4 hours prn. Monitor QTc. Trazodone 20 mill grams by mouth daily at bedtime, duloxetine 30 g by mouth daily, Seroquel 400 mg, Vistaril 50 mg daily at bedtime, buspirone 20 mg by mouth 3 times a day and baclofen 10 mg by mouth 4 times a day are on hold but he is currently not appropriate for po. Consider NGT placement for meds. Precedex drip Follow up CT brain Ammonia level normal at 29 Urine drug screen positive for cannabinoids. Alcohol less than 3 Thiamine/multivitamin/folate acid supplementation through 08/11/17 Psychiatry following, Dr. Hilliard. RESP: Nasal cannula wean as tolerated. He is currently protecting airway. Monitor in ICU for airway protection. CV: Coronary artery disease Prior CABG Hypertension Hyperlipidemia Atenolol dose was held because he could not take by mouth. Use metoprolol 2.5 mg IV o3oksme. Pravastatin 80 mg po qhs GI: AST elevation Has been on regular diet. Nothing by mouth currently. Hepatitis C antibody positive FEN/RENAL: Mild dehydration Shirley in place. Monitor intake and output. Monitor electrolytes. Replace electrolytes as indicated per ICU electrolyte replacement protocol. Change IVF to LR 125/hr. ID: Monitor for signs and symptoms of infection. UA negative. Chest x-ray negative HEME: Monitor CBC ENDO: Euglycemic. TSH within normal limits. PROPH: SCDs for DVT prophylaxis. Initiate pharmacologic DVT prophylaxis if CT brain is negative. Famotidine for stress ulcer prophylaxis ACCESS: Has peripheral IV. He removed his other IVs. Vascular access to assist with placing an additional IV. FULL CODE Level III Consult Deandra aKhn MD Aug 06, 2017 19:49
[2017-08-06] MEDS ORDERED: MAGNESIUM OXIDE 400 MG TAB PO PRN (20:15)
[2017-08-06] MEDS ORDERED: SODIUM PHOSPHATE INJ 30 MMOL in SODIUM CHLOR 0.9% 250 ML INJ 240 ML IV PRN (20:15)
[2017-08-06] MEDS ORDERED: MAGNESIUM SULFATE INJ 2 GM in SODIUM CHLORIDE 0.9% INJ 96 ML IV PRN (20:15)
[2017-08-06] MEDS ORDERED: POTASSIUM CHLOR 40 MEQ PREMIX 100 ML IV-CENTRAL PRN ×2 (20:15)
[2017-08-06] MEDS ORDERED: MAGNESIUM SULFATE INJ 4 GM in SODIUM CHLORIDE 0.9% INJ 92 ML IV PRN (20:15)
[2017-08-06] MEDS ORDERED: POTASSIUM PHOSPHATE MONOBASIC 500 MG TAB PO/TUBE PRN (20:15)
[2017-08-06] MEDS ORDERED: POTASSIUM PHOSPHATE MONOBASIC 500 MG TAB PO PRN (20:15)
[2017-08-06] MEDS ORDERED: POTASSIUM PHOSPHATE INJ 30 MMOL in SODIUM CHLOR 0.9% 250 ML INJ 250 ML IV PRN (20:15)
[2017-08-06] MEDS ORDERED: HALOPERIDOL LACTATE 5 MG/ML AMP IM PRN (20:15)
[2017-08-06] MEDS ORDERED: POTASSIUM CHLOR 20 MEQ PREMIX 100 ML IV PRN (20:15)
[2017-08-06] MEDS ORDERED: POTASSIUM CHLORIDE 25 MEQ EFFERVESCENT TAB PO PRN (20:15)
[2017-08-06] MEDS ORDERED: CHLORHEXIDINE GLUCONATE 2 % 1 PACK (2 CLOTHS)(extra cloths) TOPICAL PRN (20:30)
[2017-08-06] MEDS: DEXMEDETOMIDINE INJ 200 MCG in SODIUM CHLORIDE 0.9% INJ 50 ML IV PRN ×2 (20:31→23:30)
[2017-08-06] MEDS: METOPROLOL TARTRATE 5 MG/5 ML VIAL IV PUSH SCH (21:21)
[2017-08-06] MEDS: FAMOTIDINE 20 MG/2 ML VIAL IV PUSH SCH (21:22)
[2017-08-06] MEDS: PRAVASTATIN SOD 80 MG TAB PO SCH (21:22)
[2017-08-06] MEDS: LACTATED RINGER'S 1000 ML INJ 1,000 ML IV SCH (21:24)
[2017-08-07] VITALS (13 sets, daily range): BP systolic 146–163; BP diastolic 71–83; PULSE 52–78; RESP 16–29; TEMP 97.5–98.6; O2SAT 96–100
--- NOTE | 2017-08-07 00:06 | RADRPT ---
EXAM DATE/TIME: 08/06/2017 23:55 [place] COMPARISON: CT BRAIN W/O CONTRAST, July 06, 2017, 16:56. INDICATIONS : Altered mental status. RADIATION DOSE: 56.35 CTDIvol (mGy) MEDICAL HISTORY : Cardiovascular disease. Hepatitis C. Hypertension. SURGICAL HISTORY : CABG ENCOUNTER: Initial ACUITY: 1 day PAIN SCALE: Non-responsive LOCATION: cranial TECHNIQUE: Multiple contiguous axial images were obtained of the head. Using automated exposure control and adj ustment of the mA and/or kV according to patient size, radiation dose was kept as low as reasonably a chievable to obtain optimal diagnostic quality images. DICOM format image data is available electro nically for review and comparison. FINDINGS: CEREBRUM: The ventricles are normal for age. No evidence of midline shift, mass lesion, hemorrhage or acute in farction. A stable remote right parietal infarct is again noted with encephalomalacia. No extra-axial fluid collections are seen. POSTERIOR FOSSA: The cerebellum and brainstem are intact. The 4th ventricle is midline. The cerebellopontine angle i s unremarkable. EXTRACRANIAL: The visualized portion of the orbits is intact. SKULL: The calvaria is intact. No evidence of skull fracture. CONCLUSION: 1. No acute hemorrhage, mass or infarction. 2. Remote right parietal infarct. Javy Tolbert MD on August 07, 2017 at 0:04 Board Certified Radiologist. This report was verified electronically.
[2017-08-07] MEDS: METOPROLOL TARTRATE 5 MG/5 ML VIAL IV PUSH SCH ×4 (02:24→20:33)
[2017-08-07] MEDS: DEXMEDETOMIDINE INJ 200 MCG in SODIUM CHLORIDE 0.9% INJ 50 ML IV PRN ×2 (02:24→19:43)
[2017-08-07] MEDS: LORazepam 2 MG/ML VIAL IV PUSH PRN ×4 (03:32→14:41)
[2017-08-07] MEDS: CHLORHEXIDINE GLUCONATE 2 % 1 PACK (2 CLOTHS)(taper/protocol) TOPICAL SCH (04:00)
[2017-08-07] MEDS: ENOXAPARIN SODIUM 40 MG/0.4 ML SYRINGE SQ SCH (05:44)
[2017-08-07] MEDS: LACTATED RINGER'S 1000 ML INJ 1,000 ML IV SCH ×3 (05:45→20:33)
[2017-08-07 07:25] LABS: AUTOMATED NEUTROPHIL # 6.6 TH/MM3 (1.8-7.7); BASOPHIL % 0.4 % (0.0-2.0); EOSINOPHIL # 0.1 TH/MM3 (0-0.4); EOSINOPHIL % 0.7 % (0.0-4.0); HEMATOCRIT 40.2 % (39.0-51.0); HEMOGLOBIN 13.8 GM/DL (13.0-17.0); LYMPH % 15.6 % (9.0-44.0); LYMPHOCYTE # 1.5 TH/MM3 (1.0-4.8); MEAN CELL VOLUME 85.2 FL (80.0-100.0); MEAN CORPUSCULAR HEMOGLOBIN 29.1 PG (27.0-34.0); MEAN CORPUSCULAR HGB CONC 34.2 % (32.0-36.0); MONO % 14.4 % (0.0-8.0); MONOCYTE # 1.4 TH/MM3 (0-0.9); NEUT % 68.9 % (16.0-70.0); PLATELET COUNT 148 TH/MM3 (150-450); RED BLOOD COUNT 4.72 MIL/MM3 (4.50-5.90); RED CELL DISTRIBUTION WIDTH 13.9 % (11.6-17.2); WHITE BLOOD COUNT 9.6 TH/MM3 (4.0-11.0)
[2017-08-07 07:44] LABS: BICARBONATE 26.9 MEQ/L (21.0-32.0); CALCIUM 8.1 MG/DL (8.5-10.1); CREATININE 0.86 MG/DL (0.60-1.30); MAGNESIUM 1.9 MG/DL (1.5-2.5); PHOSPHORUS 2.2 MG/DL (2.5-4.9)
--- NOTE | 2017-08-07 08:42 | HHI.CCPN ---
Subjective Remarks/Hospital Course 08/06: 56 year old male with past mental history of alcohol dependence, dementia, bipolar disorder, CAD with prior CABG, prior stroke, hepatitis C who presented to [facility] emergency department 08/05/17 when he became combative. He arrived via [facility] and had received Versed ARCH SUPPORT TECHNICIAN. He was admitted to hospitalist service and has been on CIWA protocol receiving Ativan 2 mg IV q 1- 2 hours and Haldol 2mg IM. Despite this, he remains agitated and delirious and Dr. Gonzalez has requested physical aerodynamicist consult because he may need adjunctive drips to manage delirium. Patient is oriented to name, hospital. He denies pain 08/07: Resting comfortably on Precedex gtt. Knows his name and knows he is at the hospital. Some disorientation and confusion. Objective Vital Signs Date Time Temp Pulse Resp B/P (MAP) Pulse Ox O2 Delivery O2 Flow Rate FiO2 08/07/17 07:36 100 Nasal Cannula 2.00 08/07/17 06:00 57 08/07/17 04:00 97.9 16 153/72 (99) Intake and Output 08/07/17 08/07/17 08/08/17 08:00 16:00 00:00 Intake Total 52 ml Output Total 750 ml Balance -698 ml Result Diagram: 08/07/1751408/07/17514 Objective Remarks GENERAL: Well-nourished, well-developed patient who is laying in [facility] bed, drowsy , easily arousable, moving all 4 extremities. SKIN: Warm and dry, adequately perfused. HEAD: Atraumatic. Normocephalic. EYES: Pupils equal and round, 5 mm and reactive to 3 mm bilaterally. No scleral icterus. No injection or drainage. ENT: No nasal bleeding or discharge. Mucous membranes pink NECK: Trachea midline. No JVD. CARDIOVASCULAR: Regular rate and rhythm, sinus rhythm on the monitor. No murmurs rubs or gallops. RESPIRATORY: Good air entry bilaterally no wheezing or crackles. GASTROINTESTINAL: Abdomen soft, non-tender, nondistended. Bowel sounds present. : Shirley in place with yellow urine output. MUSCULOSKELETAL: Extremities without clubbing, cyanosis, or edema. No obvious deformities. NEUROLOGICAL: Drowsy, easily arousable. Oriented to self, "hospital". Did not answer when I asked year. No obvious cranial nerve deficits. No nystagmus. Motor grossly within normal limits agitated and moving all extremities. No tremors currently A/P Assessment and Plan NEURO: Agitated delirium appears consistent with alcohol/benzo withdrawal Bipolar disorder h/o dementia History of polysubstance abuse Continue CIOR protocol Haldol 2 mg IM q4 hours prn. Monitor QTc. Trazodone 20 mill grams by mouth daily at bedtime, duloxetine 30 g by mouth daily, Seroquel 400 mg, Vistaril 50 mg daily at bedtime, buspirone 20 mg by mouth 3 times a day and baclofen 10 mg by mouth 4 times a day are on hold but he is currently not appropriate for po. Consider NGT placement for meds. Precedex drip Follow up CT brain Ammonia level normal at 29 Urine drug screen positive for cannabinoids. Alcohol less than 3 Thiamine/multivitamin/folate acid supplementation through 08/11/17 Psychiatry following, Dr. Hilliard. RESP: Nasal cannula wean as tolerated. He is currently protecting airway. Monitor in ICU for airway protection. CV: Coronary artery disease Prior CABG Hypertension Hyperlipidemia Atenolol dose was held because he could not take by mouth. Use metoprolol 2.5 mg IV [id number]. Pravastatin 80 mg po qhs GI: AST elevation Ordered soft mechanical diet Hepatitis C antibody positive FEN/RENAL: Mild dehydration Shirley in place. Monitor intake and output. Monitor electrolytes. Replace electrolytes as indicated per ICU electrolyte replacement protocol. Change IVF to LR 125/hr. ID: Monitor for signs and symptoms of infection. UA negative. Chest x-ray negative HEME: Monitor CBC ENDO: Euglycemic. TSH within normal limits. PROPH: SCDs for DVT prophylaxis. Initiate pharmacologic DVT prophylaxis if CT brain is negative. Famotidine for stress ulcer prophylaxis ACCESS: Has peripheral IV. He removed his other IVs. Vascular access to assist with placing an additional IV. FULL CODE Mason Baltazar MD Aug 07, 2017 08:42
[2017-08-07] MEDS: FAMOTIDINE 20 MG/2 ML VIAL IV PUSH SCH (08:51)
[2017-08-07] MEDS: DOCUSATE SODIUM 50 MG/SENNA 8.6 MG TAB PO SCH ×2 (08:51→20:34)
[2017-08-07] MEDS: SODIUM CHLORIDE 0.9% FLUSH 10 ML FLUSH IV FLUSH SCH ×2 (08:51→20:33)
[2017-08-07] MEDS ORDERED: PNEUMOCOCCAL POLYVALENT INJ 25 MCG/0.5 ML SYR IM ONE (10:00)
[2017-08-07] MEDS: cloNIDine HCL 0.1 MG TAB PO PRN (12:16)
[2017-08-07] MEDS: LORazepam 1 MG TAB PO PRN (12:16)
[2017-08-07] MEDS: THIAMINE INJ 100 MG in SODIUM CHLORIDE 0.9% INJ 100 ML IV SCH (13:05)
[2017-08-07] MEDS: MULTIVITAMIN INJ 10 ML, FOLIC ACID INJ 1 MG in SODIUM CHLORID 0.9% 500 ML INJ 500 ML IV SCH (13:41)
[2017-08-07] MEDS: FAMOTIDINE 20 MG TAB PO SCH (20:34)
[2017-08-07] MEDS: PRAVASTATIN SOD 80 MG TAB PO SCH (20:52)
[2017-08-08] VITALS (29 sets, daily range): BP systolic 120–194; BP diastolic 61–103; PULSE 45–84; RESP 6–35; TEMP 98–98.6; O2SAT 82–100
[2017-08-08] MEDS: LORazepam 2 MG/ML VIAL IV PUSH PRN ×2 (00:21→18:46)
[2017-08-08] MEDS: CHLORHEXIDINE GLUCONATE 2 % 1 PACK (2 CLOTHS)(taper/protocol) TOPICAL SCH (03:19)
[2017-08-08] MEDS: METOPROLOL TARTRATE 5 MG/5 ML VIAL IV PUSH SCH ×4 (03:19→20:09)
[2017-08-08] MEDS: LACTATED RINGER'S 1000 ML INJ 1,000 ML IV SCH ×3 (03:22→20:08)
[2017-08-08] MEDS: ENOXAPARIN SODIUM 40 MG/0.4 ML SYRINGE SQ SCH (03:22)
[2017-08-08] MEDS: cloNIDine HCL 0.1 MG TAB PO PRN (06:31)
[2017-08-08] MEDS: DEXMEDETOMIDINE INJ 200 MCG in SODIUM CHLORIDE 0.9% INJ 50 ML IV PRN (06:35)
[2017-08-08] MEDS: DOCUSATE SODIUM 50 MG/SENNA 8.6 MG TAB PO SCH ×2 (08:15→20:08)
[2017-08-08] MEDS: FAMOTIDINE 20 MG TAB PO SCH ×2 (08:15→20:08)
[2017-08-08] MEDS: SODIUM CHLORIDE 0.9% FLUSH 10 ML FLUSH IV FLUSH SCH ×2 (08:16→20:07)
[2017-08-08] MEDS: LORazepam 2 MG TAB PO PRN (09:18)
[2017-08-08] MEDS: THIAMINE INJ 100 MG in SODIUM CHLORIDE 0.9% INJ 100 ML IV SCH (11:51)
[2017-08-08] MEDS: MULTIVITAMIN INJ 10 ML, FOLIC ACID INJ 1 MG in SODIUM CHLORID 0.9% 500 ML INJ 500 ML IV SCH (11:52)
--- NOTE | 2017-08-08 13:53 | HHI.CCPN ---
Subjective Remarks/Hospital Course 08/06: 56 year old male with past mental history of alcohol dependence, dementia, bipolar disorder, CAD with prior CABG, prior stroke, hepatitis C who presented to [facility] emergency department 08/05/17 when he became combative. He arrived via [facility] and had received Versed WARP DOFFER. He was admitted to hospitalist service and has been on CIWA protocol receiving Ativan 2 mg IV q 1- 2 hours and Haldol 2mg IM. Despite this, he remains agitated and delirious and Dr. Gonzalez has requested campus aide consult because he may need adjunctive drips to manage delirium. Patient is oriented to name, hospital. He denies pain 08/07: Resting comfortably on Precedex gtt. Knows his name and knows he is at the hospital. Some disorientation and confusion. 08/08: Remains on Precedex drip. Remains disoriented currently. Received 1 dose of Ativan last night. Objective Vital Signs Date Time Temp Pulse Resp B/P (MAP) Pulse Ox O2 Delivery O2 Flow Rate FiO2 08/08/17 13:04 62 08/08/17 09:23 95 08/08/17 09:01 18 166/75 (105) 08/08/17 04:00 98.2 08/07/17 18:48 21 08/07/17 07:36 Nasal Cannula 2.00 Intake and Output 08/08/17 08/08/17 08/09/17 08:00 16:00 00:00 Intake Total 1052 ml Output Total 650 ml Balance 402 ml Result Diagram: 08/07/17 0515 08/07/17 0515 Objective Remarks GENERAL: Well-nourished, well-developed patient who is laying in [facility] bed, drowsy , easily arousable, moving all 4 extremities. SKIN: Warm and dry, adequately perfused. HEAD: Atraumatic. Normocephalic. EYES: Pupils equal and round, 5 mm and reactive to 3 mm bilaterally. No scleral icterus. No injection or drainage. ENT: No nasal bleeding or discharge. Mucous membranes pink NECK: Trachea midline. No JVD. CARDIOVASCULAR: Regular rate and rhythm, sinus rhythm on the monitor. No murmurs rubs or gallops. RESPIRATORY: Good air entry bilaterally no wheezing or crackles. GASTROINTESTINAL: Abdomen soft, non-tender, nondistended. Bowel sounds present. : Shirley in place with yellow urine output. MUSCULOSKELETAL: Extremities without clubbing, cyanosis, or edema. No obvious deformities. NEUROLOGICAL: Drowsy, easily arousable. Oriented to self, "hospital". Did not answer when I asked year. No obvious cranial nerve deficits. No nystagmus. Motor grossly within normal limits agitated and moving all extremities. No tremors currently A/P Assessment and Plan NEURO: Agitated delirium appears consistent with alcohol/benzo withdrawal Bipolar disorder h/o dementia History of polysubstance abuse Continue CIWY protocol Haldol 2 mg IM q4 hours prn. Monitor QTc. Trazodone 20 mill grams by mouth daily at bedtime, duloxetine 30 g by mouth daily, Seroquel 400 mg, Vistaril 50 mg daily at bedtime, buspirone 20 mg by mouth 3 times a day and baclofen 10 mg by mouth 4 times a day which are being resumed. Precedex drip CT brain unremarkable Ammonia level normal at 29 Urine drug screen positive for cannabinoids. Alcohol less than 3 Thiamine/multivitamin/folate acid supplementation through 08/11/17 Psychiatry following, Dr. Hilliard. RESP: Nasal cannula wean as tolerated. He is currently protecting airway. Monitor in ICU for airway protection. CV: Coronary artery disease Prior CABG Hypertension Hyperlipidemia Atenolol dose was held because he could not take by mouth. Use metoprolol 5 mg IV [id number]. Pravastatin 80 mg po qhs GI: AST elevation Ordered soft mechanical diet Hepatitis C antibody positive FEN/RENAL: Mild dehydration Shirley in place. Monitor intake and output. Monitor electrolytes. Replace electrolytes as indicated per ICU electrolyte replacement protocol. LR 125/hr. ID: Monitor for signs and symptoms of infection. UA negative. Chest x-ray negative HEME: Monitor CBC ENDO: Euglycemic. TSH within normal limits. PROPH: SCDs for DVT prophylaxis. Initiate pharmacologic DVT prophylaxis if CT brain is negative. Famotidine for stress ulcer prophylaxis ACCESS: Has peripheral IV. He removed his other IVs. Vascular access to assist with placing an additional IV. FULL CODE Mason Baltazar MD Aug 08, 2017 13:53
[2017-08-08] MEDS: busPIRone HCL 10 MG TAB PO SCH (17:33)
[2017-08-08] MEDS: BACLOFEN 10 MG TAB PO SCH ×2 (17:33→20:08)
[2017-08-08] MEDS: hydrOXYzine PAMOATE 25 MG CAP PO SCH (20:08)
[2017-08-08] MEDS: QUEtiapine FUMARATE 200 MG TAB PO SCH (22:01)
[2017-08-08] MEDS: PRAVASTATIN SOD 80 MG TAB PO SCH (22:01)
[2017-08-08] MEDS: LORazepam 1 MG TAB PO PRN (22:09)
[2017-08-09] VITALS (17 sets, daily range): BP systolic 138–206; BP diastolic 79–103; PULSE 71–99; RESP 15–35; TEMP 97.5–98.6; O2SAT 81–100
[2017-08-09] MEDS: LORazepam 1 MG TAB PO PRN (01:51)
[2017-08-09] MEDS: METOPROLOL TARTRATE 5 MG/5 ML VIAL IV PUSH SCH (01:51)
[2017-08-09] MEDS: CHLORHEXIDINE GLUCONATE 2 % 1 PACK (2 CLOTHS)(taper/protocol) TOPICAL SCH (04:00)
[2017-08-09] MEDS: LACTATED RINGER'S 1000 ML INJ 1,000 ML IV SCH (04:03)
[2017-08-09] MEDS: ENOXAPARIN SODIUM 40 MG/0.4 ML SYRINGE SQ SCH (04:03)
[2017-08-09 05:44] LABS: AUTOMATED NEUTROPHIL # 2.5 TH/MM3 (1.8-7.7); BASOPHIL % 0.6 % (0.0-2.0); EOSINOPHIL # 0.1 TH/MM3 (0-0.4); EOSINOPHIL % 2.9 % (0.0-4.0); HEMOGLOBIN 14.3 GM/DL (13.0-17.0); LYMPH % 26.1 % (9.0-44.0); LYMPHOCYTE # 1.1 TH/MM3 (1.0-4.8); MEAN CELL VOLUME 83.2 FL (80.0-100.0); MEAN CORPUSCULAR HEMOGLOBIN 28.9 PG (27.0-34.0); MEAN CORPUSCULAR HGB CONC 34.8 % (32.0-36.0); MEAN PLATELET VOLUME 8.5 FL (7.0-11.0); MONO % 11.2 % (0.0-8.0); MONOCYTE # 0.5 TH/MM3 (0-0.9); NEUT % 59.2 % (16.0-70.0); PLATELET COUNT 173 TH/MM3 (150-450); RED BLOOD COUNT 4.93 MIL/MM3 (4.50-5.90); WHITE BLOOD COUNT 4.2 TH/MM3 (4.0-11.0)
[2017-08-09 05:50] LABS: ALKALINE PHOSPHATASE 86 U/L (45-117); TOTAL BILIRUBIN ADULT 0.9 MG/DL (0.2-1.0); TOTAL PROTEIN 7.2 GM/DL (6.4-8.2)
[2017-08-09 05:53] LABS: ALBUMIN 3.1 GM/DL (3.4-5.0); ALT (GPT) 61 U/L (12-78); AST (GOT) 93 U/L (15-37); BICARBONATE 24.5 MEQ/L (21.0-32.0); BLOOD UREA NITROGEN 9 MG/DL (7-18); CALCIUM 8.7 MG/DL (8.5-10.1); CHLORIDE 103 MEQ/L (98-107); CREATININE 0.74 MG/DL (0.60-1.30); GLOMERULAR FILTRATION RATE 110 ML/MIN (>89); GLUCOSE,RANDOM 62 MG/DL (74-106); SODIUM (NA) 138 MEQ/L (136-145)
[2017-08-09] MEDS: LORazepam 2 MG/ML VIAL IV PUSH PRN ×3 (06:07→16:45)
[2017-08-09] MEDS: DOCUSATE SODIUM 50 MG/SENNA 8.6 MG TAB PO SCH ×2 (08:30→19:53)
[2017-08-09] MEDS: FAMOTIDINE 20 MG TAB PO SCH ×2 (08:30→19:52)
[2017-08-09] MEDS: LORazepam 2 MG TAB PO PRN ×2 (08:30→13:41)
[2017-08-09] MEDS: busPIRone HCL 10 MG TAB PO SCH ×3 (08:39→16:45)
[2017-08-09] MEDS: BACLOFEN 10 MG TAB PO SCH ×4 (08:40→19:52)
--- NOTE | 2017-08-09 09:07 | HHI.CCPN ---
Subjective Remarks/Hospital Course 08/06: 56 year old male with past mental history of alcohol dependence, dementia, bipolar disorder, CAD with prior CABG, prior stroke, hepatitis C who presented to [facility] emergency department 08/05/17 when he became combative. He arrived via [facility] and had received Versed PUSHCART PEDDLER. He was admitted to hospitalist service and has been on CIWA protocol receiving Ativan 2 mg IV q 1- 2 hours and Haldol 2mg IM. Despite this, he remains agitated and delirious and Dr. Gonzalez has requested director of partner marketing consult because he may need adjunctive drips to manage delirium. Patient is oriented to name, hospital. He denies pain 08/07: Resting comfortably on Precedex gtt. Knows his name and knows he is at the hospital. Some disorientation and confusion. 08/08: Remains on Precedex drip. Remains disoriented currently. Received 1 dose of Ativan last night. 08/09 Patient is lying in bed in NAD. Afebrile. Some confusion noted. Objective Vital Signs Date Time Temp Pulse Resp B/P (MAP) Pulse Ox O2 Delivery O2 Flow Rate FiO2 08/09/17 06:00 78 08/09/17 04:00 98.1 24 206/95 (132) 99 08/08/17 19:23 21 08/07/17 07:36 Nasal Cannula 2.00 Intake and Output 08/09/17 08/09/17 08/10/17 08:00 16:00 00:00 Intake Total 610.2 ml Output Total 1200 ml Balance -589.8 ml Result Diagram: 08/09/17 0351 08/09/17 0351 Other Results Laboratory Tests Test 08/09/17 03:51 White Blood Count 4.2 TH/MM3 Red Blood Count 4.93 MIL/MM3 Hemoglobin 14.3 GM/DL Hematocrit 41.0 % Mean Corpuscular Volume 83.2 FL Mean Corpuscular Hemoglobin 28.9 PG Mean Corpuscular Hemoglobin Concent 34.8 % Red Cell Distribution Width 14.0 % Platelet Count 173 TH/MM3 Mean Platelet Volume 8.5 FL Neutrophils (%) (Auto) 59.2 % Lymphocytes (%) (Auto) 26.1 % Monocytes (%) (Auto) 11.2 % Eosinophils (%) (Auto) 2.9 % Basophils (%) (Auto) 0.6 % Neutrophils # (Auto) 2.5 TH/MM3 Lymphocytes # (Auto) 1.1 TH/MM3 Monocytes # (Auto) 0.5 TH/MM3 Eosinophils # (Auto) 0.1 TH/MM3 Basophils # (Auto) 0.0 TH/MM3 CBC Comment DIFF FINAL Differential Comment Blood Urea Nitrogen 9 MG/DL Creatinine 0.74 MG/DL Random Glucose 62 MG/DL Total Protein 7.2 GM/DL Albumin 3.1 GM/DL Calcium Level 8.7 MG/DL Alkaline Phosphatase 86 U/L Aspartate Amino Transf (AST/SGOT) 93 U/L Alanine Aminotransferase (ALT/SGPT) 61 U/L Total Bilirubin 0.9 MG/DL Sodium Level 138 MEQ/L Potassium Level 3.5 MEQ/L Chloride Level 103 MEQ/L Carbon Dioxide Level 24.5 MEQ/L Anion Gap 11 MEQ/L Estimat Glomerular Filtration Rate 110 ML/MIN Imaging Last Impressions Head CT 08/06/172212 Signed Impressions: Service Date/Time: Sunday, August 06, 2017 23:55 - CONCLUSION: 1. No acute hemorrhage, mass or infarction. 2. Remote right parietal infarct. Javy Tolbert MD Chest X-Ray 08/05/172212 Signed Impressions: Service Date/Time: Saturday, August 05, 2017 22:27 - CONCLUSION: No acute disease Abran Mendoza MD Objective Remarks GENERAL: Patient is 56 yo lyong in bed in NAD SKIN: Warm and dry. HEAD: Normocephalic. EYES: No scleral icterus. No injection or drainage. NECK: Supple, trachea midline. No JVD or lymphadenopathy. CARDIOVASCULAR: Regular rate and rhythm without murmurs, gallops, or rubs. RESPIRATORY: Breath sounds equal bilaterally. No accessory muscle use. GASTROINTESTINAL: Abdomen soft, non-tender, nondistended. MUSCULOSKELETAL: No cyanosis, or edema. BACK: Nontender without obvious deformity. No CVA tenderness. Neuro: awake, intermittently confused A/P Assessment and Plan NEURO: Agitated delirium appears consistent with alcohol/benzo withdrawal Bipolar disorder h/o dementia History of polysubstance abuse Continue CIWA protocol Haldol 2 mg IM q4 hours prn. Monitor QTc. Trazodone 20 mill grams by mouth daily at bedtime, duloxetine 30 g by mouth daily, Seroquel 400 mg, Vistaril 50 mg daily at bedtime, buspirone 20 mg by mouth 3 times a day and baclofen 10 mg by mouth 4 times a day which are being resumed. Precedex drip if needed for agitation CT brain unremarkable Ammonia level normal at 29 on 08/05 Urine drug screen positive for cannabinoids. Alcohol less than 3 Thiamine/multivitamin/folate acid supplementation through 08/11/17 Psychiatry following, Dr. Hilliard. RESP: Nasal cannula wean as tolerated. He is currently protecting airway. Monitor in ICU for airway protection. CV: Coronary artery disease Prior CABG Hypertension Hyperlipidemia Place on Lopressor 25mg Q12, d/c IV metoprolol. Monitor HR and BP keep MAP>65mmHg Pravastatin 80 mg po qhs GI: AST elevation On PO diet Monitor LFT's, check US liver Hepatitis C antibody positive FEN/RENAL: Mild dehydration Monitor renal function, electrolytes replacement per protocol. Change IVF D5NS@84ml/hr, monitor CK's ID: Monitor for signs and symptoms of infection. UA negative. Chest x-ray negative HEME: Monitor CBC ENDO: Euglycemic. TSH within normal limits. PROPH: SCDs/Lovenox for DVT prophylaxis. Famotidine for stress ulcer prophylaxis ACCESS: Has peripheral IV. Level 2 aKry Elise MD Aug 09, 2017 09:06
[2017-08-09] MEDS: METOPROLOL TARTRATE 25 MG TAB PO SCH ×2 (09:49→19:52)
[2017-08-09] MEDS: DEXT 5%-NACL 0.9% 1000 ML INJ 1,000 ML IV SCH ×2 (09:50→22:42)
[2017-08-09] MEDS: SODIUM CHLORIDE 0.9% FLUSH 10 ML FLUSH IV FLUSH SCH ×2 (09:50→19:52)
[2017-08-09] MEDS: POTASSIUM CHLOR 20 MEQ PREMIX 100 ML IV PRN ×2 (10:55→12:30)
[2017-08-09] MEDS: MULTIVITAMIN INJ 10 ML, FOLIC ACID INJ 1 MG in SODIUM CHLORID 0.9% 500 ML INJ 500 ML IV SCH (13:41)
[2017-08-09] MEDS: PRAVASTATIN SOD 80 MG TAB PO SCH (19:52)
[2017-08-09] MEDS: QUEtiapine FUMARATE 200 MG TAB PO SCH (19:56)
[2017-08-09] MEDS: hydrOXYzine PAMOATE 25 MG CAP PO SCH (19:56)
[2017-08-10] VITALS (24 sets, daily range): BP systolic 151–203; BP diastolic 81–102; PULSE 65–87; RESP 16–27; TEMP 98.2–98.4; O2SAT 87–99
[2017-08-10] MEDS: LORazepam 2 MG/ML VIAL IV PUSH PRN ×10 (00:45→22:13)
[2017-08-10] MEDS: CHLORHEXIDINE GLUCONATE 2 % 1 PACK (2 CLOTHS)(taper/protocol) TOPICAL SCH (02:08)
[2017-08-10] MEDS: ENOXAPARIN SODIUM 40 MG/0.4 ML SYRINGE SQ SCH (02:21)
[2017-08-10 06:56] LABS: AUTOMATED NEUTROPHIL # 3.3 TH/MM3 (1.8-7.7); BASOPHIL % 0.2 % (0.0-2.0); EOSINOPHIL # 0.1 TH/MM3 (0-0.4); EOSINOPHIL % 2.5 % (0.0-4.0); HEMATOCRIT 40.3 % (39.0-51.0); HEMOGLOBIN 13.9 GM/DL (13.0-17.0); LYMPH % 25.5 % (9.0-44.0); LYMPHOCYTE # 1.5 TH/MM3 (1.0-4.8); MEAN CELL VOLUME 82.9 FL (80.0-100.0); MEAN CORPUSCULAR HEMOGLOBIN 28.6 PG (27.0-34.0); MEAN CORPUSCULAR HGB CONC 34.5 % (32.0-36.0); MEAN PLATELET VOLUME 8.8 FL (7.0-11.0); MONO % 16.2 % (0.0-8.0); NEUT % 55.6 % (16.0-70.0); PLATELET COUNT 165 TH/MM3 (150-450); RED BLOOD COUNT 4.86 MIL/MM3 (4.50-5.90); RED CELL DISTRIBUTION WIDTH 13.9 % (11.6-17.2); WHITE BLOOD COUNT 5.9 TH/MM3 (4.0-11.0)
[2017-08-10 07:03] LABS: ALT (GPT) 63 U/L (12-78); AST (GOT) 87 U/L (15-37); BICARBONATE 24.4 MEQ/L (21.0-32.0); CALCIUM 8.5 MG/DL (8.5-10.1); CHLORIDE 109 MEQ/L (98-107); CREATININE 0.75 MG/DL (0.60-1.30); GLOMERULAR FILTRATION RATE 108 ML/MIN (>89); GLUCOSE,RANDOM 90 MG/DL (74-106); MAGNESIUM 1.9 MG/DL (1.5-2.5); PHOSPHORUS 2.6 MG/DL (2.5-4.9); SODIUM (NA) 141 MEQ/L (136-145)
[2017-08-10 07:10] LABS: ALKALINE PHOSPHATASE 76 U/L (45-117); TOTAL BILIRUBIN ADULT 0.6 MG/DL (0.2-1.0); TOTAL PROTEIN 6.9 GM/DL (6.4-8.2)
[2017-08-10 07:21] LABS: BLOOD UREA NITROGEN 7 MG/DL (7-18)
[2017-08-10] MEDS: BACLOFEN 10 MG TAB PO SCH ×4 (07:46→20:42)
[2017-08-10] MEDS: DOCUSATE SODIUM 50 MG/SENNA 8.6 MG TAB PO SCH ×2 (07:46→20:42)
[2017-08-10] MEDS: METOPROLOL TARTRATE 25 MG TAB PO SCH ×2 (07:46→20:42)
[2017-08-10] MEDS: busPIRone HCL 10 MG TAB PO SCH ×3 (07:46→17:57)
[2017-08-10] MEDS: THIAMINE HCL 100 MG TAB PO SCH (07:47)
[2017-08-10] MEDS: SODIUM CHLORIDE 0.9% FLUSH 10 ML FLUSH IV FLUSH SCH ×2 (07:47→20:42)
[2017-08-10] MEDS: FAMOTIDINE 20 MG TAB PO SCH ×2 (07:47→20:42)
[2017-08-10] MEDS: LORazepam 2 MG TAB PO PRN ×2 (07:47→15:21)
--- NOTE | 2017-08-10 09:35 | RADRPT ---
EXAM DATE/TIME: 08/10/2017 08:55 [place] COMPARISON: No previous studies available for comparison. INDICATIONS : Increased lab values. MEDICAL HISTORY : CVA. Seizures. Alzheimer's disease. hypertension. mi hypercholesterol. bipolar. SURGICAL HISTORY : CABG. Right ankle surgery. Back surgery. ENCOUNTER: Subsequent ACUITY: 1 day PAIN SCORE: 0/10 LOCATION: Bilateral upper quadrant MEASUREMENTS: LIVER: 14.3 cm length COMMON DUCT: 7 mm RIGHT KIDNEY: 10.5 x 4.6 x 4.7 cm SPLEEN: 10.4 cm length FINDINGS: LIVER: Normal echotexture without focal lesion or ductal dilatation. COMMON DUCT: No intraluminal mass or stone visualized. GALLBLADDER: Contains no stones, demonstrates no wall thickening or pericholecystic fluid. PANCREAS: The pancreas is obscured by bowel gas. RIGHT KIDNEY: No hydronephrosis, stone or mass. SPLEEN: No focal lesion. CONCLUSION: No acute disease. Abran Shell MD on August 10, 2017 at 9:32 Board Certified Radiologist. This report was verified electronically.
[2017-08-10] MEDS: DEXT 5%-NACL 0.9% 1000 ML INJ 1,000 ML IV SCH (10:17)
[2017-08-10] MEDS: MULTIVITAMIN INJ 10 ML, FOLIC ACID INJ 1 MG in SODIUM CHLORID 0.9% 500 ML INJ 500 ML IV SCH (11:52)
[2017-08-10] MEDS: cloNIDine HCL 0.1 MG TAB PO PRN (16:54)
[2017-08-10] MEDS ORDERED: hydrALAZINE HCL 20 MG/ML VIAL IV PUSH PRN (17:45)
[2017-08-10] MEDS: LISINOPRIL 5 MG TAB PO SCH (17:57)
[2017-08-10] MEDS: PRAVASTATIN SOD 80 MG TAB PO SCH (20:42)
[2017-08-10] MEDS: hydrOXYzine HCL 50 MG TAB PO SCH (20:42)
[2017-08-10] MEDS: QUEtiapine FUMARATE 200 MG TAB PO SCH (20:42)
[2017-08-11] VITALS (19 sets, daily range): BP systolic 118–209; BP diastolic 70–99; PULSE 59–87; RESP 12–30; TEMP 97.7–98.5; O2SAT 71–100
[2017-08-11] MEDS ORDERED: HALOPERIDOL LACTATE 5 MG/ML AMP IV PUSH PRN (00:15)
[2017-08-11] MEDS: CHLORHEXIDINE GLUCONATE 2 % 1 PACK (2 CLOTHS)(taper/protocol) TOPICAL SCH (04:00)
[2017-08-11] MEDS: ENOXAPARIN SODIUM 40 MG/0.4 ML SYRINGE SQ SCH (04:53)
--- NOTE | 2017-08-11 07:15 | HHI.CCPN ---
Subjective Remarks/Hospital Course 08/06: 56 year old male with past mental history of alcohol dependence, dementia, bipolar disorder, CAD with prior CABG, prior stroke, hepatitis C who presented to [facility] emergency department 08/05/17 when he became combative. He arrived via [facility] and had received Versed SUPERVISOR WELDING EQUIPMENT REPAIRER. He was admitted to hospitalist service and has been on CIWA protocol receiving Ativan 2 mg IV q 1- 2 hours and Haldol 2mg IM. Despite this, he remains agitated and delirious and Dr. Gonzalez has requested family psychologist consult because he may need adjunctive drips to manage delirium. Patient is oriented to name, hospital. He denies pain 08/07: Resting comfortably on Precedex gtt. Knows his name and knows he is at the hospital. Some disorientation and confusion. 08/08: Remains on Precedex drip. Remains disoriented currently. Received 1 dose of Ativan last night. 08/09 Patient is lying in bed in NAD. Afebrile. Some confusion noted. Subjective: 08/10 This note is entered late. Patient seen 08/10 but apparently note did not save. Patient has been off Precedex since 08/08. Still requiring ativan 1-2 mg q 4 hours. Objective Vital Signs Date Time Temp Pulse Resp B/P (MAP) Pulse Ox O2 Delivery O2 Flow Rate FiO2 08/11/17 04:00 77 08/11/17 04:00 97.7 18 125/82 (96) 91 08/10/17 07:34 21 08/07/17 07:36 Nasal Cannula 2.00 Intake and Output 08/11/17 08/11/17 08/12/17 08:00 16:00 00:00 Output Total 650 ml Balance -650 ml Result Diagram: 08/10/17 0456 08/10/17 0456 Imaging Last Impressions Head CT 08/06/172212 Signed Impressions: Service Date/Time: Sunday, August 06, 2017 23:55 - CONCLUSION: 1. No acute hemorrhage, mass or infarction. 2. Remote right parietal infarct. Javy Tolbert MD Chest X-Ray 08/05/172212 Signed Impressions: Service Date/Time: Saturday, August 05, 2017 22:27 - CONCLUSION: No acute disease Abran Mendoza MD Objective Remarks GENERAL: Patient is 56 yo laying in [facility] bed, currently calm but intermittently restless. SKIN: Warm and dry. HEAD: Normocephalic. EYES: No scleral icterus. No injection or drainage. NECK: Supple, trachea midline. No JVD or lymphadenopathy. CARDIOVASCULAR: Regular rate and rhythm without murmurs, gallops, or rubs. RESPIRATORY: Breath sounds equal bilaterally. No accessory muscle use. On RA. GASTROINTESTINAL: Abdomen soft, non-tender, nondistended. : Condom catheter in place NEURO: awake but delirious. Oriented to self and place at times. At other times states he needs to get beer, go fishing. Moving all extremities without focal deficity. A/P Assessment and Plan NEURO: Agitated delirium appears consistent with alcohol/benzo withdrawal Bipolar disorder h/o dementia History of polysubstance abuse Continue CIWA protocol Haldol 2 mg IV q4 hours prn. Monitor QTc. Trazodone 20 mill grams by mouth daily at bedtime, duloxetine 30 g by mouth daily, Seroquel 400 mg, vistaril 50 daily, buspirone 20 mg by mouth 3 times a day and baclofen 10 mg by mouth 4 times a day Precedex drip off since afternoon 08/08. CT brain unremarkable Ammonia level normal at 29 on 08/05 Urine drug screen positive for cannabinoids. Alcohol less than 3 Thiamine/multivitamin/folate acid supplementation through 08/11/17 Psychiatry following, Dr. Hilliard. RESP: On RA. Protecting airway CV: Coronary artery disease Prior CABG Hypertension Hyperlipidemia Continue Lopressor 25mg Q12. Heart rate is in 50s. Add lisinopril 5 mg p.o. daily due to hypertension. Monitor HR and BP keep MAP>65mmHg Pravastatin 80 mg po qhs GI: AST elevation On PO diet. Liver ultrasound 08/10 nothing acute. Hepatitis C antibody positive FEN/RENAL: Mild dehydration Monitor renal function, electrolytes replacement per protocol. On D5NS@84ml/hr --> discontinue ID: Monitor for signs and symptoms of infection. UA negative. Chest x-ray negative 08/05 HEME: Monitor CBC ENDO: Euglycemic. TSH within normal limits. PROPH: SCDs/Lovenox for DVT prophylaxis. Famotidine for stress ulcer prophylaxis ACCESS: Has peripheral IV. Patient still requiring ativan and with impulsive behavior that may be challenging for safety on the floor. Will remain in ICU today but hopefully transfer to floor soon even if sitter is necessary. Hospitalist to assume care. Level 2 Deandra Kahn MD Aug 11, 2017 07:15
[2017-08-11] MEDS: THIAMINE HCL 100 MG TAB PO SCH (09:17)
[2017-08-11] MEDS: BACLOFEN 10 MG TAB PO SCH ×4 (09:17→21:22)
[2017-08-11] MEDS: busPIRone HCL 10 MG TAB PO SCH ×3 (09:18→17:58)
[2017-08-11] MEDS: MULTIVITAMIN TAB PO SCH (09:18)
[2017-08-11] MEDS: METOPROLOL TARTRATE 25 MG TAB PO SCH ×2 (09:18→21:22)
[2017-08-11] MEDS: FOLIC ACID 1 MG TAB PO SCH (09:18)
[2017-08-11] MEDS: DOCUSATE SODIUM 50 MG/SENNA 8.6 MG TAB PO SCH ×2 (09:18→21:22)
[2017-08-11] MEDS: FAMOTIDINE 20 MG TAB PO SCH ×2 (09:18→21:22)
[2017-08-11] MEDS: LISINOPRIL 5 MG TAB PO SCH (09:18)
[2017-08-11] MEDS: SODIUM CHLORIDE 0.9% FLUSH 10 ML FLUSH IV FLUSH SCH ×2 (09:43→21:22)
[2017-08-11] MEDS: LORazepam 2 MG/ML VIAL IV PUSH PRN ×2 (11:49→22:45)
--- NOTE | 2017-08-11 16:11 | HHI.PR ---
Subjective Remarks f/u for DT patient continues to be hallucination. he is speaking nonsense and asked me if today was my birthday. patient's nurse stated that he is doing better but still hallucinated and agitated where he is requiring restraints, Ativan, and Haldol. he is AAO X0. Nurses at the bedside during the interview. Objective Vitals Vital Signs Date Time Temp Pulse Resp B/P (MAP) Pulse Ox O2 Delivery O2 Flow Rate FiO2 08/11/17 15:01 70 15 176/81 (112) 93 08/11/17 14:00 72 30 148/89 (108) 84 08/11/17 13:00 70 17 147/82 (103) 96 08/11/17 12:00 98.2 59 14 209/99 (135) 99 08/11/17 11:16 69 21 152/75 (100) 92 08/11/17 11:08 69 20 199/89 (125) 99 08/11/17 11:00 61 13 189/98 (128) 100 08/11/17 10:00 65 17 118/70 (86) 97 08/11/17 09:00 70 18 167/88 (114) 97 08/11/17 08:01 98.4 63 12 192/86 (121) 99 08/11/17 06:00 66 08/11/17 04:00 77 08/11/17 04:00 97.7 77 18 125/82 (96) 91 08/11/17 02:00 63 08/11/17 00:00 64 08/11/17 00:00 98.2 64 14 143/78 (99) 96 08/10/17 22:00 73 08/10/17 20:00 98.4 75 18 192/93 (126) 98 08/10/17 20:00 75 08/10/17 19:14 98 08/10/17 18:06 65 08/10/17 18:05 66 08/10/17 18:02 66 08/10/17 18:00 66 08/10/17 16:50 66 18 203/99 (133) 97 08/10/17 16:49 65 24 192/99 (130) 96 08/10/17 16:42 67 20 191/89 (123) 97 08/10/17 16:40 72 24 195/95 (128) 87 I/O 08/10/17 08/10/17 08/10/17 08/11/17 08/11/17 08/11/17 07:00 15:00 23:00 07:00 15:00 23:00 Intake Total 320 ml Output Total 800 ml 900 ml 650 ml Balance -800 ml -580 ml -650 ml Intake Oral 320 ml Output Urine Total 800 ml 900 ml 650 ml # Voids 1 # Bowel Movements 0 2 0 Result Diagram: 08/10/176 08/10/17 0456 Objective Remarks GENERAL: in NAD but is in restraints. CARDIOVASCULAR: Regular rate and rhythm without murmurs, gallops, or rubs. RESPIRATORY: Breath sounds equal bilaterally. No accessory muscle use. GASTROINTESTINAL: Abdomen soft, non-tender, nondistended. MUSCULOSKELETAL: Neuro: Grossly moving all extremities. AAO 0. Medications and IVs Current Medications Lorazepam (Ativan Inj) 2 mg STK-MED ONCE .ROUTE ; Start 08/05/17 at 23:47; Stop 08/05/17 at 23:48; Status DC Lorazepam (Ativan Inj) 2 mg ONCE ONCE IV PUSH Last administered on 08/06/17at 00:17; Start 08/06/17 at 00:00; Stop 08/06/17 at 00:01; Status DC Sodium Chloride 1,000 ml @ 1,000 mls/hr Q1H ONCE IV Last administered on at 00:17; Start 08/06/17 at 00:00; Stop 08/06/17 at 00:59; Status DC Lorazepam (Ativan Inj) 1 mg Q2H PRN IV PUSH agitation Last administered on 08/11at 11:49; Start 08/06/17 at 01:30 Sodium Chloride 1,000 ml @ 175 mls/hr Q5H43M IV Last administered on at 14:08; Start 08/06/17 at 01:19; Stop 08/06/17 at 20:18; Status DC Sodium Chloride (NS Flush) 2 ml UNSCH PRN IV FLUSH FLUSH AFTER USING IV ACCESS ; Start 08/06/17 at 01:30 Sodium Chloride (NS Flush) 2 ml BID IV FLUSH Last administered on 08/11/17at 09: 43; Start 08/06/17 at 09:00 Acetaminophen (Tylenol) 650 mg Q4H PRN PO TEMP > 100.4; Start 08/06/17 at 01:30 Ondansetron HCl (Zofran Inj) 4 mg Q6H PRN IVP NAUSEA OR VOMITING; Start at 01:30 Naloxone HCl (Narcan Inj) 0.4 mg UNSCH PRN IV PUSH SEE LABEL COMMENTS; Start at 01:30 Senna/Docusate Sodium (Brooke-Colace) 1 tab BID PO Last administered on at 09:18; Start 08/06/17 at 09:00 Magnesium Hydroxide (Milk Of Magnesia Liq) 30 ml Q12H PRN PO Mild constipation Last administered on 08/09/17at 08:30; Start 08/06/17 at 01:30 Sennosides (Senokot) 17.2 mg Q12H PRN PO Moderate constipation Last administered on 08/09/17at 08:30; Start 08/06/17 at 01:30 Bisacodyl (Dulcolax Supp) 10 mg DAILY PRN RECTAL SEVERE CONSITIPATION; Start at 01:30 Lactulose (Lactulose Liq) 30 ml DAILY PRN PO SEVERE CONSITIPATION Last administered on 08/10/17at 07:46; Start 08/06/17 at 01:30 Flumazenil (Romazicon Inj) 0.2 mg Q1M PRN IV PUSH SEE LABEL COMMENTS; Start at 01:30; Stop 08/06/17 at 12:10; Status DC Lorazepam (Ativan) 1 mg Q4H PRN PO CIWA 8 - 10 Last administered on 08/09/17at 01:51; Start 08/06/17 at 01:30 Lorazepam (Ativan Inj) 1 mg Q4H PRN IV PUSH CIWA 8 - 10 Last administered on at 05:57; Start 08/06/17 at 01:30 Lorazepam (Ativan) 2 mg Q2H PRN PO CIWA 11-14 Last administered on 08/10/17at 15 :21; Start 08/06/17 at 01:30 Lorazepam (Ativan Inj) 2 mg Q2H PRN IV PUSH CIWA 11-14 Last administered on at 18:46; Start 08/06/17 at 01:30 Lorazepam (Ativan Inj) 2 mg Q1H PRN IV PUSH CIWA 15-20 Last administered on at 22:13; Start 08/06/17 at 01:30 Lorazepam (Ativan Inj) 2 mg Q15M PRN IV PUSH CIWA > 20 Last administered on at 21:06; Start 08/06/17 at 01:30 Atenolol (Tenormin) 25 mg DAILY PO ; Start 08/06/17 at 09:00; Stop 08/10/17 at 17:35; Status DC Pravastatin Sodium (Pravachol) 80 mg HS PO Last administered on 08/10/17at 20:42 ; Start 08/06/17 at 21:00 Pneumococcal Polyvalent Vaccine (Pneumovax-23 Inj) 25 mcg ONCE ONCE IM ; Start 08/07/17 at 10:00; Stop 08/07/17 at 10:01; Status DC Multivitamins 10 ml/Folic Acid 1 mg/Sodium Chloride 510.2 ml @ 125 mls/hr Q24H IV Last administered on 08/10/17at 11:52; Start 08/06/17 at 13:00; Stop at 17:35; Status DC Thiamine HCl 100 mg/Sodium Chloride 101 ml @ 100 mls/hr Q24H IV Last administered on 08/08/17at 11:51; Start 08/06/17 at 13:00; Stop 08/09/17 at 12:59 ; Status DC Thiamine HCl (Vitamin B1) 100 mg DAILY PO Last administered on 08/11/17at 09:17 ; Start 08/10/17 at 09:00 Clonidine (Catapres) 0.1 mg Q6H PRN PO SEE LABEL COMMENTS Last administered on 08/10/17at 16:54; Start 08/06/17 at 13:00 Flumazenil (Romazicon Inj) 0.2 mg Q1M PRN IV PUSH SEE LABEL COMMENTS; Start at 11:45 Haloperidol Lactate (Haldol Inj) 2 mg Q15M PRN IM SEE LABEL COMMENTS Last administered on 08/06/17at 16:53; Start 08/06/17 at 13:00; Stop 08/06/17 at 20:06 ; Status DC Dextrose (D50w (Vial) Inj) 50 ml UNSCH PRN IV PUSH HYPOGLYCEMIA-SEE COMMENTS; Start 08/06/17 at 13:30 Glucagon (Glucagon Inj) 1 mg UNSCH PRN OTHER HYPOGLYCEMIA-SEE COMMENTS; Start 08/06/17 at 13:30 Dexmedetomidine HCl 200 mcg/ Sodium Chloride 52 ml @ 3.79 mls/hr TITRATE PRN IV SEDATION Last administered on 08/08/17at 06:35; Start 08/06/17 at 20:00; Stop 08/10/17 at 17:29; Status DC Haloperidol Lactate (Haldol Inj) 2 mg Q4H PRN IM HALLUCINATIONS Last administered on 08/09/17at 16:50; Start 08/06/17 at 20:15; Stop 08/10/17 at 21:15 ; Status DC Metoprolol Tartrate (Lopressor Inj) 2.5 mg Q6H IV PUSH Last administered on at 01:51; Start 08/06/17 at 21:00; Stop 08/09/17 at 09:07; Status DC Potassium Chloride 100 ml @ 50 mls/hr Q2H PRN IV-CENTRAL For Potassium 2.8 - 3.2 mEq/L; Start 08/06/17 at 20:15 Potassium Chloride 100 ml @ 50 mls/hr Q2H PRN IV For Potassium 2.8 - 3.2 mEq/ L Last administered on 08/09/17at 12:30; Start 08/06/17 at 20:15 Potassium Bicarb/ Potassium Chloride (K-Lyte Cl Eff) 50 meq UNSCH PRN PO For Potassium 3.3 - 3.5 mEq/L; Start 08/06/17 at 20:15 Potassium Chloride 100 ml @ 25 mls/hr UNSCH PRN IV-CENTRAL For Potassium 3.3 - 3.5 mEq/L; Start 08/06/17 at 20:15 Potassium Chloride 100 ml @ 50 mls/hr Q2H PRN IV For Potassium 3.3 - 3.5 mEq/L ; Start 08/06/17 at 20:15 Magnesium Sulfate 4 gm/Sodium Chloride 100 ml @ 50 mls/hr UNSCH PRN IV For Magnesium 0.9 - 1.1 mg/dL; Start 08/06/17 at 20:15 Magnesium Oxide (Mag-Ox) 800 mg UNSCH PRN PO For Magnesium 1.2 - 1.6 mg/dL; Start 08/06/17 at 20:15 Magnesium Sulfate 2 gm/Sodium Chloride 100 ml @ 50 mls/hr UNSCH PRN IV For Magnesium 1.2 - 1.6 mg/dL; Start 08/06/17 at 20:15 Potassium Phosphate (K-Phos) 2,000 mg Q4H PRN PO For Phosphorus < 2.5 mg/dL; Start 08/06/17 at 20:15 Sodium Phosphate 30 mmol/Sodium Chloride 250 ml @ 42 mls/hr UNSCH PRN IV For Phosphorus < 2.5 mg/dL; Start 08/06/17 at 20:15 Potassium Phosphate (K-Phos) 2,000 mg UNSCH PRN PO/TUBE SEE LABEL COMMENTS; Start 08/06/17 at 20:15 Potassium Phosphate 30 mmol/ Sodium Chloride 260 ml @ 42 mls/hr UNSCH PRN IV SEE LABEL COMMENTS; Start 08/06/17 at 20:15 Famotidine (Pepcid Inj) 20 mg Q12H IV PUSH Last administered on 08/07/17at 08:51 ; Start 08/06/17 at 21:00; Stop 08/07/17 at 10:18; Status DC Miscellaneous Information Patient in critical care unit? Ass... Q361D .XX Last administered on 08/06/17at 20:30; Start 08/06/17 at 20:30 Chlorhexidine Gluconate (Chlorhexidine 2% Cloth) 3 pack DAILY@04 TOPICAL Last administered on 08/11/17at 04:00; Start 08/07/17 at 04:00; Stop 08/11/17 at 04:01 ; Status DC Chlorhexidine Gluconate (Chlorhexidine 2% Cloth) 3 pack UNSCH PRN TOPICAL HYGIENIC CARE; Start 08/06/17 at 20:30; Stop 08/11/17 at 20:18 Lactated Ringer's 1,000 ml @ 125 mls/hr Q8H IV Last administered on 08/09/17at 04:03; Start 08/06/17 at 21:00; Stop 08/09/17 at 08:58; Status DC Enoxaparin Sodium (Lovenox Inj) 40 mg Q24H SQ Last administered on 08/11/17at 04 :53; Start 08/07/17 at 04:00 Famotidine (Pepcid) 20 mg BID PO Last administered on 08/11/17 09:18; Start at 21:00 Baclofen (Lioresal) 10 mg QID PO Last administered on 08/11/17 14:01; Start at 18:00 Buspirone HCl (Buspar) 20 mg TID PO Last administered on 08/11/17 14:02; Start 08/08/17 at 18:00 Hydroxyzine Pamoate (Vistaril) 50 mg HS PO Last administered on 08/09/17 19:56 ; Start 08/08/17 at 21:00; Stop 08/10/17 at 15:01; Status DC Quetiapine Fumarate (SEROquel) 400 mg HS PO Last administered on 08/10/17 20: 42; Start 08/08/17 at 21:00 Dextrose/Sodium Chloride 1,000 ml @ 84 mls/hr [id number] IV Last administered on 08/10/17 10:17; Start 08/09/17 at 09:00; Stop 08/10/17 at 17:29; Status DC Metoprolol Tartrate (Lopressor) 25 mg Q12HR PO Last administered on 08/11/17 09:18; Start 08/09/17 at 09:30 Hydroxyzine HCl (Atarax) 50 mg HS PO Last administered on 08/10/17 20:42; Start 08/10/17 at 21:00 Multivitamins (Theragran) 1 tab DAILY PO Last administered on 08/11/17 09:18; Start 08/11/17 at 09:00 Folic Acid (Folate) 1 mg DAILY PO Last administered on 08/11/17 09:18; Start 08/11/17 at 09:00 Lisinopril (Prinivil) 5 mg DAILY PO Last administered on 08/11/17 09:18; Start 08/10/17 at 17:30 Hydralazine HCl (Apresoline Inj) 10 mg Q4H PRN IV PUSH SBP >165; Start at 17:45 Haloperidol Lactate (Haldol Inj) 2 mg Q4H PRN IV PUSH HALLUCINATIONS Last administered on 08/11/17at 12:27; Start 08/11/17 at 00:15 A/P Assessment and Plan This is a 56 y/o alcoholism p/w AMS Agitated delirium appears consistent with alcohol/benzo withdrawal Bipolar disorder h/o dementia History of polysubstance abuse Continue CIWA protocol Haldol 2 mg IV q4 hours prn. Monitor QTc. Trazodone 20 mill grams by mouth daily at bedtime, duloxetine 30 g by mouth daily, Seroquel 400 mg, vistaril 50 daily, buspirone 20 mg by mouth 3 times a day and baclofen 10 mg by mouth 4 times a day Precedex drip off since 08/08. CT brain unremarkable Ammonia level normal at 29 on 08/05 Urine drug screen positive for cannabinoids. Alcohol less than 3 Thiamine/multivitamin/folate acid supplementation through 08/11/17 Psychiatry following, Dr. Hilliard. Improving but continues to hallucinate. Continue with current regimen. Coronary artery disease Prior CABG Hypertension Hyperlipidemia Continue Lopressor 25mg Q12. Heart rate is in 50s. Add lisinopril 5 mg p.o. daily due to hypertension. Monitor HR and BP keep MAP>65mmHg Pravastatin 80 mg po qhs AST elevation On PO diet. Liver ultrasound 08/10 nothing acute. Hepatitis C antibody positive Once patient is not altered will have discussion with patient. Mild dehydration Monitor renal function, electrolytes replacement per protocol. On D5NS@84ml/hr --> discontinue PROPH: SCDs/Lovenox for DVT prophylaxis. Famotidine for stress ulcer prophylaxis Georgette Dahl MD Aug 11, 2017 16:11
[2017-08-11] MEDS: HALOPERIDOL LACTATE 5 MG/ML AMP IM PRN (17:58)
[2017-08-11] MEDS: LORazepam 2 MG TAB PO PRN (18:07)
[2017-08-11] MEDS: PRAVASTATIN SOD 80 MG TAB PO SCH (21:22)
[2017-08-11] MEDS: QUEtiapine FUMARATE 200 MG TAB PO SCH (21:22)
[2017-08-11] MEDS: hydrOXYzine HCL 50 MG TAB PO SCH (21:22)
[2017-08-12] VITALS (17 sets, daily range): BP systolic 108–158; BP diastolic 61–88; PULSE 64–84; RESP 11–22; TEMP 97.9–98.7; O2SAT 74–100
[2017-08-12] MEDS: ENOXAPARIN SODIUM 40 MG/0.4 ML SYRINGE SQ SCH (03:28)
[2017-08-12] MEDS: LORazepam 2 MG/ML VIAL IV PUSH PRN ×5 (03:29→23:50)
[2017-08-12] MEDS: SODIUM CHLORIDE 0.9% FLUSH 10 ML FLUSH IV FLUSH SCH ×2 (09:00→21:33)
[2017-08-12] MEDS: LORazepam 1 MG TAB PO PRN (10:21)
[2017-08-12] MEDS: BACLOFEN 10 MG TAB PO SCH ×4 (10:22→21:32)
[2017-08-12] MEDS: MULTIVITAMIN TAB PO SCH (10:22)
[2017-08-12] MEDS: FOLIC ACID 1 MG TAB PO SCH (10:22)
[2017-08-12] MEDS: THIAMINE HCL 100 MG TAB PO SCH (10:22)
[2017-08-12] MEDS: METOPROLOL TARTRATE 25 MG TAB PO SCH ×2 (10:22→21:33)
[2017-08-12] MEDS: LISINOPRIL 5 MG TAB PO SCH (10:22)
[2017-08-12] MEDS: DOCUSATE SODIUM 50 MG/SENNA 8.6 MG TAB PO SCH ×2 (10:22→21:32)
[2017-08-12] MEDS: FAMOTIDINE 20 MG TAB PO SCH ×2 (10:22→21:33)
[2017-08-12] MEDS: busPIRone HCL 10 MG TAB PO SCH ×3 (10:23→18:20)
--- NOTE | 2017-08-12 15:45 | HHI.PR ---
Subjective Remarks Follow-up for DTs Patient still confused. He is able to have a conversation with me but makes no sense. No events overnight. Patient still in restraints due to agitation. Objective Vitals Vital Signs Date Time Temp Pulse Resp B/P (MAP) Pulse Ox O2 Delivery O2 Flow Rate FiO2 08/12/17 12:00 64 08/12/17 12:00 98.1 64 11 146/86 (106) 100 08/12/17 10:00 81 08/12/17 10:00 81 08/12/17 09:00 65 08/12/17 09:00 65 13 142/79 (100) 100 08/12/17 09:00 65 08/12/17 08:00 67 08/12/17 08:00 98.7 67 11 158/85 (109) 100 08/12/17 08:00 67 08/12/17 06:00 69 08/12/17 04:00 98.5 71 12 137/70 (92) 97 08/12/17 04:00 71 08/12/17 02:00 73 08/12/17 00:00 71 08/12/17 00:00 98.3 71 14 128/78 (95) 97 08/11/17 22:00 87 08/11/17 22:00 95 21 08/11/17 20:00 98.5 76 14 159/82 (107) 96 08/11/17 20:00 76 08/11/17 18:00 75 25 166/94 (118) 71 08/11/17 17:01 82 16 118/72 (87) 71 08/11/17 16:00 98.0 69 14 182/88 (119) 97 I/O 08/11/17 08/11/17 08/11/17 08/12/17 08/12/17 08/12/17 07:00 15:00 23:00 07:00 15:00 23:00 Intake Total 600 ml Output Total 650 ml 550 ml 1275 ml Balance -650 ml 50 ml -1275 ml Intake Oral 600 ml Output Urine Total 650 ml 550 ml 1275 ml # Voids 1 # Bowel Movements 0 0 0 Result Diagram: 08/10/17 0456 08/10/17 0456 Objective Remarks GENERAL: in NAD but is in restraints. CARDIOVASCULAR: Regular rate and rhythm without murmurs, gallops, or rubs. RESPIRATORY: Breath sounds equal bilaterally. No accessory muscle use. GASTROINTESTINAL: Abdomen soft, non-tender, nondistended. Neuro: Grossly moving all extremities. AAO 0. Medications and IVs Current Medications Lorazepam (Ativan Inj) 2 mg STK-MED ONCE .ROUTE ; Start 08/05/17 at 23:47; Stop 08/05/17 at 23:48; Status DC Lorazepam (Ativan Inj) 2 mg ONCE ONCE IV PUSH Last administered on 08/06/17at 00:17; Start 08/06/17 at 00:00; Stop 08/06/17 at 00:01; Status DC Sodium Chloride 1,000 ml @ 1,000 mls/hr Q1H ONCE IV Last administered on at 00:17; Start 08/06/17 at 00:00; Stop 08/06/17 at 00:59; Status DC Lorazepam (Ativan Inj) 1 mg Q2H PRN IV PUSH agitation Last administered on 08/12at 10:54; Start 08/06/17 at 01:30 Sodium Chloride 1,000 ml @ 175 mls/hr Q5H43M IV Last administered on at 14:08; Start 08/06/17 at 01:19; Stop 08/06/17 at 20:18; Status DC Sodium Chloride (NS Flush) 2 ml UNSCH PRN IV FLUSH FLUSH AFTER USING IV ACCESS ; Start 08/06/17 at 01:30 Sodium Chloride (NS Flush) 2 ml BID IV FLUSH Last administered on 08/12/17at 09: 00; Start 08/06/17 at 09:00 Acetaminophen (Tylenol) 650 mg Q4H PRN PO TEMP > 100.4; Start 08/06/17 at 01:30 Ondansetron HCl (Zofran Inj) 4 mg Q6H PRN IVP NAUSEA OR VOMITING; Start at 01:30 Naloxone HCl (Narcan Inj) 0.4 mg UNSCH PRN IV PUSH SEE LABEL COMMENTS; Start at 01:30 Senna/Docusate Sodium (Brooke-Colace) 1 tab BID PO Last administered on at 10:22; Start 08/06/17 at 09:00 Magnesium Hydroxide (Milk Of Magnesia Liq) 30 ml Q12H PRN PO Mild constipation Last administered on 08/09/17 08:30; Start 08/06/17 at 01:30 Sennosides (Senokot) 17.2 mg Q12H PRN PO Moderate constipation Last administered on 08/09/17 08:30; Start 08/06/17 at 01:30 Bisacodyl (Dulcolax Supp) 10 mg DAILY PRN RECTAL SEVERE CONSITIPATION; Start at 01:30 Lactulose (Lactulose Liq) 30 ml DAILY PRN PO SEVERE CONSITIPATION Last administered on 08/10/17 07:46; Start 08/06/17 at 01:30 Flumazenil (Romazicon Inj) 0.2 mg Q1M PRN IV PUSH SEE LABEL COMMENTS; Start at 01:30; Stop 08/06/17 at 12:10; Status DC Lorazepam (Ativan) 1 mg Q4H PRN PO CIWA 8 - 10 Last administered on 08/12/17at 10:21; Start 08/06/17 at 01:30 Lorazepam (Ativan Inj) 1 mg Q4H PRN IV PUSH CIWA 8 - 10 Last administered on at 05:57; Start 08/06/17 at 01:30 Lorazepam (Ativan) 2 mg Q2H PRN PO CIWA 11-14 Last administered on 08/11/17at 18 :07; Start 08/06/17 at 01:30 Lorazepam (Ativan Inj) 2 mg Q2H PRN IV PUSH CIWA 11-14 Last administered on at 03:29; Start 08/06/17 at 01:30 Lorazepam (Ativan Inj) 2 mg Q1H PRN IV PUSH CIWA 15-20 Last administered on at 22:13; Start 08/06/17 at 01:30 Lorazepam (Ativan Inj) 2 mg Q15M PRN IV PUSH CIWA > 20 Last administered on at 21:06; Start 08/06/17 at 01:30 Atenolol (Tenormin) 25 mg DAILY PO ; Start 08/06/17 at 09:00; Stop 08/10/17 at 17:35; Status DC Pravastatin Sodium (Pravachol) 80 mg HS PO Last administered on 08/11/17at 21:22 ; Start 08/06/17 at 21:00 Pneumococcal Polyvalent Vaccine (Pneumovax-23 Inj) 25 mcg ONCE ONCE IM ; Start 08/07/17 at 10:00; Stop 08/07/17 at 10:01; Status DC Multivitamins 10 ml/Folic Acid 1 mg/Sodium Chloride 510.2 ml @ 125 mls/hr Q24H IV Last administered on 08/10/17at 11:52; Start 08/06/17 at 13:00; Stop at 17:35; Status DC Thiamine HCl 100 mg/Sodium Chloride 101 ml @ 100 mls/hr Q24H IV Last administered on 08/08/17at 11:51; Start 08/06/17 at 13:00; Stop 08/09/17 at 12:59 ; Status DC Thiamine HCl (Vitamin B1) 100 mg DAILY PO Last administered on 08/12/17at 10:22 ; Start 08/10/17 at 09:00 Clonidine (Catapres) 0.1 mg Q6H PRN PO SEE LABEL COMMENTS Last administered on 08/10/17at 16:54; Start 08/06/17 at 13:00 Flumazenil (Romazicon Inj) 0.2 mg Q1M PRN IV PUSH SEE LABEL COMMENTS; Start at 11:45 Haloperidol Lactate (Haldol Inj) 2 mg Q15M PRN IM SEE LABEL COMMENTS Last administered on 08/06/17at 16:53; Start 08/06/17 at 13:00; Stop 08/06/17 at 20:06 ; Status DC Dextrose (D50w (Vial) Inj) 50 ml UNSCH PRN IV PUSH HYPOGLYCEMIA-SEE COMMENTS; Start 08/06/17 at 13:30 Glucagon (Glucagon Inj) 1 mg UNSCH PRN OTHER HYPOGLYCEMIA-SEE COMMENTS; Start 08/06/17 at 13:30 Dexmedetomidine HCl 200 mcg/ Sodium Chloride 52 ml @ 3.79 mls/hr TITRATE PRN IV SEDATION Last administered on 08/08/17at 06:35; Start 08/06/17 at 20:00; Stop 08/10/17 at 17:29; Status DC Haloperidol Lactate (Haldol Inj) 2 mg Q4H PRN IM HALLUCINATIONS Last administered on 08/09/17at 16:50; Start 08/06/17 at 20:15; Stop 08/10/17 at 21:15 ; Status DC Metoprolol Tartrate (Lopressor Inj) 2.5 mg Q6H IV PUSH Last administered on at 01:51; Start 08/06/17 at 21:00; Stop 08/09/17 at 09:07; Status DC Potassium Chloride 100 ml @ 50 mls/hr Q2H PRN IV-CENTRAL For Potassium 2.8 - 3.2 mEq/L; Start 08/06/17 at 20:15 Potassium Chloride 100 ml @ 50 mls/hr Q2H PRN IV For Potassium 2.8 - 3.2 mEq/ L Last administered on 08/09/17at 12:30; Start 08/06/17 at 20:15 Potassium Bicarb/ Potassium Chloride (K-Lyte Cl Eff) 50 meq UNSCH PRN PO For Potassium 3.3 - 3.5 mEq/L; Start 08/06/17 at 20:15 Potassium Chloride 100 ml @ 25 mls/hr UNSCH PRN IV-CENTRAL For Potassium 3.3 - 3.5 mEq/L; Start 08/06/17 at 20:15 Potassium Chloride 100 ml @ 50 mls/hr Q2H PRN IV For Potassium 3.3 - 3.5 mEq/L ; Start 08/06/17 at 20:15 Magnesium Sulfate 4 gm/Sodium Chloride 100 ml @ 50 mls/hr UNSCH PRN IV For Magnesium 0.9 - 1.1 mg/dL; Start 08/06/17 at 20:15 Magnesium Oxide (Mag-Ox) 800 mg UNSCH PRN PO For Magnesium 1.2 - 1.6 mg/dL; Start 08/06/17 at 20:15 Magnesium Sulfate 2 gm/Sodium Chloride 100 ml @ 50 mls/hr UNSCH PRN IV For Magnesium 1.2 - 1.6 mg/dL; Start 08/06/17 at 20:15 Potassium Phosphate (K-Phos) 2,000 mg Q4H PRN PO For Phosphorus < 2.5 mg/dL; Start 08/06/17 at 20:15 Sodium Phosphate 30 mmol/Sodium Chloride 250 ml @ 42 mls/hr UNSCH PRN IV For Phosphorus < 2.5 mg/dL; Start 08/06/17 at 20:15 Potassium Phosphate (K-Phos) 2,000 mg UNSCH PRN PO/TUBE SEE LABEL COMMENTS; Start 08/06/17 at 20:15 Potassium Phosphate 30 mmol/ Sodium Chloride 260 ml @ 42 mls/hr UNSCH PRN IV SEE LABEL COMMENTS; Start 08/06/17 at 20:15 Famotidine (Pepcid Inj) 20 mg Q12H IV PUSH Last administered on 08/07/17at 08:51 ; Start 08/06/17 at 21:00; Stop 08/07/17 at 10:18; Status DC Miscellaneous Information Patient in critical care unit? Ass... Q361D .XX Last administered on 08/06/17at 20:30; Start 08/06/17 at 20:30 Chlorhexidine Gluconate (Chlorhexidine 2% Cloth) 3 pack DAILY@04 TOPICAL Last administered on 08/11/17at 04:00; Start 08/07/17 at 04:00; Stop 08/11/17 at 04:01 ; Status DC Chlorhexidine Gluconate (Chlorhexidine 2% Cloth) 3 pack UNSCH PRN TOPICAL HYGIENIC CARE; Start 08/06/17 at 20:30; Stop 08/11/17 at 20:18; Status DC Lactated Ringer's 1,000 ml @ 125 mls/hr Q8H IV Last administered on 08/09/17at 04:03; Start 08/06/17 at 21:00; Stop 08/09/17 at 08:58; Status DC Enoxaparin Sodium (Lovenox Inj) 40 mg Q24H SQ Last administered on 08/12/17at 03 :28; Start 08/07/17 at 04:00 Famotidine (Pepcid) 20 mg BID PO Last administered on 08/12/17at 10:22; Start at 21:00 Baclofen (Lioresal) 10 mg QID PO Last administered on 08/12/17at 10:22; Start at 18:00 Buspirone HCl (Buspar) 20 mg TID PO Last administered on 08/12/17at 10:23; Start 08/08/17 at 18:00 Hydroxyzine Pamoate (Vistaril) 50 mg HS PO Last administered on 08/09/17at 19:56 ; Start 08/08/17 at 21:00; Stop 08/10/17 at 15:01; Status DC Quetiapine Fumarate (SEROquel) 400 mg HS PO Last administered on 08/11/17at 21: 22; Start 08/08/17 at 21:00 Dextrose/Sodium Chloride 1,000 ml @ 84 mls/hr [id number] IV Last administered on 08/10/17at 10:17; Start 08/09/17 at 09:00; Stop 08/10/17 at 17:29; Status DC Metoprolol Tartrate (Lopressor) 25 mg Q12HR PO Last administered on 08/12/17 10:22; Start 08/09/17 at 09:30 Hydroxyzine HCl (Atarax) 50 mg HS PO Last administered on 08/11/17at 21:22; Start 08/10/17 at 21:00 Multivitamins (Theragran) 1 tab DAILY PO Last administered on 08/12/17at 10:22; Start 08/11/17 at 09:00 Folic Acid (Folate) 1 mg DAILY PO Last administered on 08/12/17at 10:22; Start 08/11/17 at 09:00 Lisinopril (Prinivil) 5 mg DAILY PO Last administered on 08/12/17at 10:22; Start 08/10/17 at 17:30 Hydralazine HCl (Apresoline Inj) 10 mg Q4H PRN IV PUSH SBP >165; Start at 17:45 Haloperidol Lactate (Haldol Inj) 2 mg Q4H PRN IV PUSH HALLUCINATIONS Last administered on 08/11/17at 12:27; Start 08/11/17 at 00:15; Stop 08/11/17 at 16:12 ; Status DC Haloperidol Lactate (Haldol Inj) 2 mg Q4H PRN IM AGITATION Last administered on 08/11/17at 17:58; Start 08/11/17 at 16:15 A/P Assessment and Plan This is a 56 y/o alcoholism p/w AMS Agitated delirium appears consistent with alcohol/benzo withdrawal Bipolar disorder h/o dementia History of polysubstance abuse Continue [facility] protocol Haldol 2 mg IM q4 hours prn. Monitor QTc. Trazodone 20 mill grams by mouth daily at bedtime, duloxetine 30 g by mouth daily, Seroquel 400 mg, vistaril 50 daily, buspirone 20 mg by mouth 3 times a day and baclofen 10 mg by mouth 4 times a day Precedex drip off since 08/08. CT brain unremarkable Ammonia level normal at 29 on 08/05 Urine drug screen positive for cannabinoids. Alcohol less than 3 Thiamine/multivitamin/folate acid supplementation through 08/11/17 Psychiatry following, Dr. Hilliard. Improving but continues to hallucinate. Continue with current regimen. Due to agitation and confusion patient continues to require restraints. Continue with nonviolent restraints of all extremities. Coronary artery disease Prior CABG Hypertension Hyperlipidemia Continue Lopressor 25mg Q12. Heart rate is in 50s. Add lisinopril 5 mg p.o. daily due to hypertension. Monitor HR and BP keep MAP>65mmHg Pravastatin 80 mg po qhs AST elevation On PO diet. Liver ultrasound 08/10 nothing acute. Hepatitis C antibody positive Once patient is not altered will have discussion with patient. Mild dehydration Monitor renal function, electrolytes replacement per protocol. On D5NS@84ml/hr --> discontinue PROPH: SCDs/Lovenox for DVT prophylaxis. Famotidine for stress ulcer prophylaxis Georgette Dahl MD Aug 12, 2017 15:45
[2017-08-12] MEDS: QUEtiapine FUMARATE 200 MG TAB PO SCH (21:32)
[2017-08-12] MEDS: hydrOXYzine HCL 50 MG TAB PO SCH (21:33)
[2017-08-12] MEDS: PRAVASTATIN SOD 80 MG TAB PO SCH (21:33)
[2017-08-13] VITALS (21 sets, daily range): BP systolic 103–142; BP diastolic 59–95; PULSE 78–126; RESP 15–34; TEMP 97.6–99.3; O2SAT 73–100
[2017-08-13] MEDS: LORazepam 2 MG/ML VIAL IV PUSH PRN ×13 (02:31→22:37)
[2017-08-13] MEDS: HALOPERIDOL LACTATE 5 MG/ML AMP IM PRN ×4 (03:21→22:37)
[2017-08-13] MEDS: ENOXAPARIN SODIUM 40 MG/0.4 ML SYRINGE SQ SCH (03:34)
[2017-08-13] MEDS: MULTIVITAMIN TAB PO SCH (08:46)
[2017-08-13] MEDS: SODIUM CHLORIDE 0.9% FLUSH 10 ML FLUSH IV FLUSH SCH ×2 (08:46→21:03)
[2017-08-13] MEDS: LISINOPRIL 5 MG TAB PO SCH (08:47)
[2017-08-13] MEDS: busPIRone HCL 10 MG TAB PO SCH ×3 (08:47→17:38)
[2017-08-13] MEDS: FOLIC ACID 1 MG TAB PO SCH (08:47)
[2017-08-13] MEDS: METOPROLOL TARTRATE 25 MG TAB PO SCH ×2 (08:47→21:03)
[2017-08-13] MEDS: BACLOFEN 10 MG TAB PO SCH ×4 (08:47→21:03)
[2017-08-13] MEDS: THIAMINE HCL 100 MG TAB PO SCH (08:47)
[2017-08-13] MEDS: FAMOTIDINE 20 MG TAB PO SCH ×2 (08:47→21:03)
[2017-08-13] MEDS: DOCUSATE SODIUM 50 MG/SENNA 8.6 MG TAB PO SCH ×2 (08:47→21:03)
--- NOTE | 2017-08-13 14:10 | HHI.PR ---
Subjective Remarks Follow-up for altered mental status Patient less confused today. He is intermittently confused. During my interview the patient was able to give me his full name, location and year. Few hours earlier patient thought he was fishing in the room. Otherwise no other events. Patient had no other complaints. Objective Vitals Vital Signs Date Time Temp Pulse Resp B/P (MAP) Pulse Ox O2 Delivery O2 Flow Rate FiO2 08/13/17 13:00 89 20 118/67 (84) 100 08/13/17 13:00 89 08/13/17 12:00 98.2 89 19 123/79 (94) 98 08/13/17 12:00 89 08/13/17 11:00 98 08/13/17 10:08 96 21 119/92 (101) 90 08/13/17 10:08 96 08/13/17 10:00 100 25 89 08/13/17 10:00 100 08/13/17 09:03 78 16 107/73 (84) 08/13/17 09:03 78 08/13/17 09:00 83 19 73 08/13/17 09:00 83 08/13/17 08:01 79 15 103/59 (74) 98 08/13/17 08:01 79 08/13/17 08:00 97.9 80 15 98 08/13/17 08:00 80 08/13/17 07:58 99 08/13/17 06:00 105 08/13/17 04:00 91 08/13/17 04:00 97.6 91 28 124/68 (86) 99 08/13/17 02:00 84 08/13/17 00:00 98.0 80 16 142/93 (109) 100 08/13/17 00:00 80 08/12/17 22:00 84 08/12/17 20:00 78 08/12/17 20:00 97.9 78 17 124/82 (96) 100 08/12/17 18:00 75 16 155/88 (110) 100 08/12/17 18:00 75 08/12/17 17:00 83 08/12/17 17:00 83 14 119/81 (94) 97 08/12/17 16:01 81 22 108/61 (77) 84 08/12/17 16:01 81 08/12/17 16:00 79 08/12/17 16:00 98.4 79 17 74 08/12/17 15:00 68 08/12/17 14:13 69 I/O 08/12/17 08/12/17 08/12/17 08/13/17 08/13/17 08/13/17 07:00 15:00 23:00 07:00 15:00 23:00 Intake Total 420 ml Output Total 1275 ml 550 ml Balance -1275 ml -130 ml Intake Oral 420 ml Output Urine Total 1275 ml 550 ml # Voids 2 # Bowel Movements 0 0 0 Result Diagram: 08/10/176 08/10/17455 Objective Remarks GENERAL: in NAD but is in restraints. CARDIOVASCULAR: Regular rate and rhythm without murmurs, gallops, or rubs. RESPIRATORY: Breath sounds equal bilaterally. No accessory muscle use. GASTROINTESTINAL: Abdomen soft, non-tender, nondistended. Neuro: Grossly moving all extremities. AAO 2. Medications and IVs Current Medications Lorazepam (Ativan Inj) 2 mg STK-MED ONCE .ROUTE ; Start 08/05/17 at 23:47; Stop 08/05/17 at 23:48; Status DC Lorazepam (Ativan Inj) 2 mg ONCE ONCE IV PUSH Last administered on 08/06/17at 00:17; Start 08/06/17 at 00:00; Stop 08/06/17 at 00:01; Status DC Sodium Chloride 1,000 ml @ 1,000 mls/hr Q1H ONCE IV Last administered on at 00:17; Start 08/06/17 at 00:00; Stop 08/06/17 at 00:59; Status DC Lorazepam (Ativan Inj) 1 mg Q2H PRN IV PUSH agitation Last administered on 08/13at 08:57; Start 08/06/17 at 01:30 Sodium Chloride 1,000 ml @ 175 mls/hr Q5H43M IV Last administered on at 14:08; Start 08/06/17 at 01:19; Stop 08/06/17 at 20:18; Status DC Sodium Chloride (NS Flush) 2 ml UNSCH PRN IV FLUSH FLUSH AFTER USING IV ACCESS ; Start 08/06/17 at 01:30 Sodium Chloride (NS Flush) 2 ml BID IV FLUSH Last administered on 08/13/17 08: 46; Start 08/06/17 at 09:00 Acetaminophen (Tylenol) 650 mg Q4H PRN PO TEMP > 100.4; Start 08/06/17 at 01:30 Ondansetron HCl (Zofran Inj) 4 mg Q6H PRN IVP NAUSEA OR VOMITING; Start at 01:30 Naloxone HCl (Narcan Inj) 0.4 mg UNSCH PRN IV PUSH SEE LABEL COMMENTS; Start at 01:30 Senna/Docusate Sodium (Brooke-Colace) 1 tab BID PO Last administered on 08:47; Start 08/06/17 at 09:00 Magnesium Hydroxide (Milk Of Magnesia Liq) 30 ml Q12H PRN PO Mild constipation Last administered on 08/09/17 08:30; Start 08/06/17 at 01:30 Sennosides (Senokot) 17.2 mg Q12H PRN PO Moderate constipation Last administered on 08/09/17 08:30; Start 08/06/17 at 01:30 Bisacodyl (Dulcolax Supp) 10 mg DAILY PRN RECTAL SEVERE CONSITIPATION; Start at 01:30 Lactulose (Lactulose Liq) 30 ml DAILY PRN PO SEVERE CONSITIPATION Last administered on 08/10/17 07:46; Start 08/06/17 at 01:30 Flumazenil (Romazicon Inj) 0.2 mg Q1M PRN IV PUSH SEE LABEL COMMENTS; Start at 01:30; Stop 08/06/17 at 12:10; Status DC Lorazepam (Ativan) 1 mg Q4H PRN PO CIWA 8 - 10 Last administered on 08/12/17at 10:21; Start 08/06/17 at 01:30 Lorazepam (Ativan Inj) 1 mg Q4H PRN IV PUSH CIWA 8 - 10 Last administered on at 05:57; Start 08/06/17 at 01:30 Lorazepam (Ativan) 2 mg Q2H PRN PO CIWA 11-14 Last administered on 08/11/17at 18 :07; Start 08/06/17 at 01:30 Lorazepam (Ativan Inj) 2 mg Q2H PRN IV PUSH CIWA 11-14 Last administered on at 03:33; Start 08/06/17 at 01:30 Lorazepam (Ativan Inj) 2 mg Q1H PRN IV PUSH CIWA 15-20 Last administered on at 22:13; Start 08/06/17 at 01:30 Lorazepam (Ativan Inj) 2 mg Q15M PRN IV PUSH CIWA > 20 Last administered on at 10:53; Start 08/06/17 at 01:30 Atenolol (Tenormin) 25 mg DAILY PO ; Start 08/06/17 at 09:00; Stop 08/10/17 at 17:35; Status DC Pravastatin Sodium (Pravachol) 80 mg HS PO Last administered on 08/12/17at 21:33 ; Start 08/06/17 at 21:00 Pneumococcal Polyvalent Vaccine (Pneumovax-23 Inj) 25 mcg ONCE ONCE IM ; Start 08/07/17 at 10:00; Stop 08/07/17 at 10:01; Status DC Multivitamins 10 ml/Folic Acid 1 mg/Sodium Chloride 510.2 ml @ 125 mls/hr Q24H IV Last administered on 08/10/17 11:52; Start 08/06/17 at 13:00; Stop at 17:35; Status DC Thiamine HCl 100 mg/Sodium Chloride 101 ml @ 100 mls/hr Q24H IV Last administered on 08/08/17at 11:51; Start 08/06/17 at 13:00; Stop 08/09/17 at 12:59 ; Status DC Thiamine HCl (Vitamin B1) 100 mg DAILY PO Last administered on 08/13/17at 08:47 ; Start 08/10/17 at 09:00 Clonidine (Catapres) 0.1 mg Q6H PRN PO SEE LABEL COMMENTS Last administered on 08/10/17at 16:54; Start 08/06/17 at 13:00 Flumazenil (Romazicon Inj) 0.2 mg Q1M PRN IV PUSH SEE LABEL COMMENTS; Start at 11:45 Haloperidol Lactate (Haldol Inj) 2 mg Q15M PRN IM SEE LABEL COMMENTS Last administered on 08/06/17at 16:53; Start 08/06/17 at 13:00; Stop 08/06/17 at 20:06 ; Status DC Dextrose (D50w (Vial) Inj) 50 ml UNSCH PRN IV PUSH HYPOGLYCEMIA-SEE COMMENTS; Start 08/06/17 at 13:30 Glucagon (Glucagon Inj) 1 mg UNSCH PRN OTHER HYPOGLYCEMIA-SEE COMMENTS; Start 08/06/17 at 13:30 Dexmedetomidine HCl 200 mcg/ Sodium Chloride 52 ml @ 3.79 mls/hr TITRATE PRN IV SEDATION Last administered on 08/08/17at 06:35; Start 08/06/17 at 20:00; Stop 08/10/17 at 17:29; Status DC Haloperidol Lactate (Haldol Inj) 2 mg Q4H PRN IM HALLUCINATIONS Last administered on 08/09/17at 16:50; Start 08/06/17 at 20:15; Stop 08/10/17 at 21:15 ; Status DC Metoprolol Tartrate (Lopressor Inj) 2.5 mg Q6H IV PUSH Last administered on at 01:51; Start 08/06/17 at 21:00; Stop 08/09/17 at 09:07; Status DC Potassium Chloride 100 ml @ 50 mls/hr Q2H PRN IV-CENTRAL For Potassium 2.8 - 3.2 mEq/L; Start 08/06/17 at 20:15 Potassium Chloride 100 ml @ 50 mls/hr Q2H PRN IV For Potassium 2.8 - 3.2 mEq/ L Last administered on 08/09/17at 12:30; Start 08/06/17 at 20:15 Potassium Bicarb/ Potassium Chloride (K-Lyte Cl Eff) 50 meq UNSCH PRN PO For Potassium 3.3 - 3.5 mEq/L; Start 08/06/17 at 20:15 Potassium Chloride 100 ml @ 25 mls/hr UNSCH PRN IV-CENTRAL For Potassium 3.3 - 3.5 mEq/L; Start 08/06/17 at 20:15 Potassium Chloride 100 ml @ 50 mls/hr Q2H PRN IV For Potassium 3.3 - 3.5 mEq/L ; Start 08/06/17 at 20:15 Magnesium Sulfate 4 gm/Sodium Chloride 100 ml @ 50 mls/hr UNSCH PRN IV For Magnesium 0.9 - 1.1 mg/dL; Start 08/06/17 at 20:15 Magnesium Oxide (Mag-Ox) 800 mg UNSCH PRN PO For Magnesium 1.2 - 1.6 mg/dL; Start 08/06/17 at 20:15 Magnesium Sulfate 2 gm/Sodium Chloride 100 ml @ 50 mls/hr UNSCH PRN IV For Magnesium 1.2 - 1.6 mg/dL; Start 08/06/17 at 20:15 Potassium Phosphate (K-Phos) 2,000 mg Q4H PRN PO For Phosphorus < 2.5 mg/dL; Start 08/06/17 at 20:15 Sodium Phosphate 30 mmol/Sodium Chloride 250 ml @ 42 mls/hr UNSCH PRN IV For Phosphorus < 2.5 mg/dL; Start 08/06/17 at 20:15 Potassium Phosphate (K-Phos) 2,000 mg UNSCH PRN PO/TUBE SEE LABEL COMMENTS; Start 08/06/17 at 20:15 Potassium Phosphate 30 mmol/ Sodium Chloride 260 ml @ 42 mls/hr UNSCH PRN IV SEE LABEL COMMENTS; Start 08/06/17 at 20:15 Famotidine (Pepcid Inj) 20 mg Q12H IV PUSH Last administered on 08/07/17at 08:51 ; Start 08/06/17 at 21:00; Stop 08/07/17 at 10:18; Status DC Miscellaneous Information Patient in critical care unit? Ass... Q361D .XX Last administered on 08/06/17at 20:30; Start 08/06/17 at 20:30 Chlorhexidine Gluconate (Chlorhexidine 2% Cloth) 3 pack DAILY@04 TOPICAL Last administered on 08/11/17at 04:00; Start 08/07/17 at 04:00; Stop 08/11/17 at 04:01 ; Status DC Chlorhexidine Gluconate (Chlorhexidine 2% Cloth) 3 pack UNSCH PRN TOPICAL HYGIENIC CARE; Start 08/06/17 at 20:30; Stop 08/11/17 at 20:18; Status DC Lactated Ringer's 1,000 ml @ 125 mls/hr Q8H IV Last administered on 08/09/17at 04:03; Start 08/06/17 at 21:00; Stop 08/09/17 at 08:58; Status DC Enoxaparin Sodium (Lovenox Inj) 40 mg Q24H SQ Last administered on 08/13/17 03 :34; Start 08/07/17 at 04:00 Famotidine (Pepcid) 20 mg BID PO Last administered on 08/13/17 08:47; Start at 21:00 Baclofen (Lioresal) 10 mg QID PO Last administered on 08/13/17 12:40; Start at 18:00 Buspirone HCl (Buspar) 20 mg TID PO Last administered on 08/13/17 12:40; Start 08/08/17 at 18:00 Hydroxyzine Pamoate (Vistaril) 50 mg HS PO Last administered on 08/09/17 19:56 ; Start 08/08/17 at 21:00; Stop 08/10/17 at 15:01; Status DC Quetiapine Fumarate (SEROquel) 400 mg HS PO Last administered on 08/12/17 21: 32; Start 08/08/17 at 21:00 Dextrose/Sodium Chloride 1,000 ml @ 84 mls/hr [id number] IV Last administered on 08/10/17 10:17; Start 08/09/17 at 09:00; Stop 08/10/17 at 17:29; Status DC Metoprolol Tartrate (Lopressor) 25 mg Q12HR PO Last administered on 08/12/17 21:33; Start 08/09/17 at 09:30 Hydroxyzine HCl (Atarax) 50 mg HS PO Last administered on 08/12/17 21:33; Start 08/10/17 at 21:00 Multivitamins (Theragran) 1 tab DAILY PO Last administered on 08/13/17 08:46; Start 08/11/17 at 09:00 Folic Acid (Folate) 1 mg DAILY PO Last administered on 08/13/17 08:47; Start 08/11/17 at 09:00 Lisinopril (Prinivil) 5 mg DAILY PO Last administered on 08/13/17 08:47; Start 08/10/17 at 17:30 Hydralazine HCl (Apresoline Inj) 10 mg Q4H PRN IV PUSH SBP >165; Start at 17:45 Haloperidol Lactate (Haldol Inj) 2 mg Q4H PRN IV PUSH HALLUCINATIONS Last administered on 08/11/17at 12:27; Start 08/11/17 at 00:15; Stop 08/11/17 at 16:12 ; Status DC Haloperidol Lactate (Haldol Inj) 2 mg Q4H PRN IM AGITATION Last administered on 08/13/17at 03:21; Start 08/11/17 at 16:15 A/P Assessment and Plan This is a 56 y/o alcoholism p/w AMS Agitated delirium appears consistent with alcohol/benzo withdrawal Bipolar disorder h/o dementia History of polysubstance abuse Continue CIWA protocol Haldol 2 mg IM q4 hours prn. Monitor QTc. Trazodone 20 mill grams by mouth daily at bedtime, duloxetine 30 g by mouth daily, Seroquel 400 mg, vistaril 50 daily, buspirone 20 mg by mouth 3 times a day and baclofen 10 mg by mouth 4 times a day Precedex drip off since 08/08. CT brain unremarkable Ammonia level normal at 29 on 08/05 Urine drug screen positive for cannabinoids. Alcohol less than 3 Thiamine/multivitamin/folate acid supplementation through 08/11/17 Psychiatry following, Dr. Hilliard. Improving but continues to hallucinate. Continue with current regimen. Altered mental status is improving. At the moment though he is intermittently altered. Will need to continue with nonviolent restraints due to confusion which can increase harm to himself and staff. Coronary artery disease Prior CABG Hypertension Hyperlipidemia Continue Lopressor 25mg Q12. Heart rate is in 50s. Continue with lisinopril 5 mg p.o. daily due to hypertension. Monitor HR and BP keep MAP>65mmHg Pravastatin 80 mg po qhs AST elevation On PO diet. Liver ultrasound 08/10 nothing acute. Hepatitis C antibody positive Once patient is not altered will have discussion with patient. Mild dehydration Monitor renal function, electrolytes replacement per protocol. On D5NS@84ml/hr --> discontinue PROPH: SCDs/Lovenox for DVT prophylaxis. Famotidine for stress ulcer prophylaxis Discussed case with charge nurse Lyn. Georgette Dahl MD Aug 13, 2017 14:10
[2017-08-13] MEDS: PRAVASTATIN SOD 80 MG TAB PO SCH (21:02)
[2017-08-13] MEDS: LORazepam 2 MG TAB PO PRN (21:03)
[2017-08-13] MEDS: hydrOXYzine HCL 50 MG TAB PO SCH (21:03)
[2017-08-13] MEDS: QUEtiapine FUMARATE 200 MG TAB PO SCH (21:03)
[2017-08-14] VITALS (20 sets, daily range): BP systolic 105–156; BP diastolic 64–108; PULSE 69–93; RESP 12–25; TEMP 97.7–99.4; O2SAT 57–100
[2017-08-14] MEDS: LORazepam 2 MG/ML VIAL IV PUSH PRN ×6 (00:11→23:40)
[2017-08-14] MEDS: LORazepam 2 MG TAB PO PRN ×2 (02:23→22:08)
[2017-08-14] MEDS: ENOXAPARIN SODIUM 40 MG/0.4 ML SYRINGE SQ SCH (04:38)
[2017-08-14 07:24] LABS: HEMATOCRIT 40.4 % (39.0-51.0); HEMOGLOBIN 14.3 GM/DL (13.0-17.0); MEAN CELL VOLUME 82.4 FL (80.0-100.0); MEAN CORPUSCULAR HEMOGLOBIN 29.2 PG (27.0-34.0); MEAN CORPUSCULAR HGB CONC 35.5 % (32.0-36.0); MEAN PLATELET VOLUME 7.9 FL (7.0-11.0); PLATELET COUNT 257 TH/MM3 (150-450); WHITE BLOOD COUNT 5.2 TH/MM3 (4.0-11.0)
[2017-08-14 07:40] LABS: BICARBONATE 23.6 MEQ/L (21.0-32.0); CALCIUM 9.4 MG/DL (8.5-10.1); CREATININE 0.77 MG/DL (0.60-1.30)
[2017-08-14] MEDS: DOCUSATE SODIUM 50 MG/SENNA 8.6 MG TAB PO SCH ×3 (09:00→22:08)
[2017-08-14] MEDS: BACLOFEN 10 MG TAB PO SCH ×5 (09:41→22:08)
[2017-08-14] MEDS: busPIRone HCL 10 MG TAB PO SCH ×3 (09:41→18:19)
[2017-08-14] MEDS: FAMOTIDINE 20 MG TAB PO SCH ×3 (09:41→22:08)
[2017-08-14] MEDS: MULTIVITAMIN TAB PO SCH (09:41)
[2017-08-14] MEDS: METOPROLOL TARTRATE 25 MG TAB PO SCH ×3 (09:41→22:08)
[2017-08-14] MEDS: THIAMINE HCL 100 MG TAB PO SCH (09:42)
[2017-08-14] MEDS: FOLIC ACID 1 MG TAB PO SCH (09:42)
[2017-08-14] MEDS: LISINOPRIL 5 MG TAB PO SCH (09:42)
[2017-08-14] MEDS: SODIUM CHLORIDE 0.9% FLUSH 10 ML FLUSH IV FLUSH SCH ×2 (09:42→22:08)
[2017-08-14] MEDS: HALOPERIDOL LACTATE 5 MG/ML AMP IM PRN ×2 (09:48→20:01)
--- NOTE | 2017-08-14 15:10 | HHI.PR ---
Subjective Remarks f/u for for DT Patient continues to be confused. he is asking for a knife to cut his restraints off. Patient stated [place]. When I asked him what type of facility he was and he cannot tell me. Patient able to give me his name. He stated that he has to go soon to see his friend. Patient denies any pain or shortness of breathing. He has no complaints. Patient remains afebrile. Objective Vitals Vital Signs Date Time Temp Pulse Resp B/P (MAP) Pulse Ox O2 Delivery O2 Flow Rate FiO2 08/14/17 08:48 95 21 08/14/17 06:00 69 08/14/17 04:00 81 08/14/17 04:00 97.7 81 15 142/84 (103) 99 08/14/17 02:00 83 08/14/17 00:00 92 08/14/17 00:00 99.4 92 21 150/79 (102) 96 08/13/17 22:00 103 08/13/17 21:28 95 21 08/13/17 20:00 126 08/13/17 20:00 99.3 126 34 129/95 (106) 94 08/13/17 19:00 118 08/13/17 18:00 94 08/13/17 16:00 85 19 125/86 (99) 97 08/13/17 16:00 85 I/O 08/13/17 08/13/17 08/13/17 08/14/17 08/14/17 08/14/17 07:00 15:00 23:00 07:00 15:00 23:00 Intake Total 620 ml 220 ml Output Total 550 ml 560 ml Balance 70 ml -340 ml Intake Oral 620 ml 220 ml Output Urine Total 550 ml 560 ml # Voids 2 # Bowel Movements 0 1 Result Diagram: 08/14/17 0612 08/14/17 0612 Objective Remarks GENERAL: in NAD but is in restraints. CARDIOVASCULAR: Regular rate and rhythm without murmurs, gallops, or rubs. RESPIRATORY: Breath sounds equal bilaterally. No accessory muscle use. GASTROINTESTINAL: Abdomen soft, non-tender, nondistended. Neuro: Grossly moving all extremities. AAO 1 patient could only give me his name. Medications and IVs Current Medications Lorazepam (Ativan Inj) 2 mg STK-MED ONCE .ROUTE ; Start 08/05/17 at 23:47; Stop 08/05/17 at 23:48; Status DC Lorazepam (Ativan Inj) 2 mg ONCE ONCE IV PUSH Last administered on 08/06/17at 00:17; Start 08/06/17 at 00:00; Stop 08/06/17 at 00:01; Status DC Sodium Chloride 1,000 ml @ 1,000 mls/hr Q1H ONCE IV Last administered on at 00:17; Start 08/06/17 at 00:00; Stop 08/06/17 at 00:59; Status DC Lorazepam (Ativan Inj) 1 mg Q2H PRN IV PUSH agitation Last administered on 08/13at 16:16; Start 08/06/17 at 01:30 Sodium Chloride 1,000 ml @ 175 mls/hr Q5H43M IV Last administered on at 14:08; Start 08/06/17 at 01:19; Stop 08/06/17 at 20:18; Status DC Sodium Chloride (NS Flush) 2 ml UNSCH PRN IV FLUSH FLUSH AFTER USING IV ACCESS ; Start 08/06/17 at 01:30 Sodium Chloride (NS Flush) 2 ml BID IV FLUSH Last administered on 08/14/17at 09: 42; Start 08/06/17 at 09:00 Acetaminophen (Tylenol) 650 mg Q4H PRN PO TEMP > 100.4; Start 08/06/17 at 01:30 Ondansetron HCl (Zofran Inj) 4 mg Q6H PRN IVP NAUSEA OR VOMITING; Start at 01:30 Naloxone HCl (Narcan Inj) 0.4 mg UNSCH PRN IV PUSH SEE LABEL COMMENTS; Start at 01:30 Senna/Docusate Sodium (Brooke-Colace) 1 tab BID PO Last administered on at 21:03; Start 08/06/17 at 09:00 Magnesium Hydroxide (Milk Of Magnesia Liq) 30 ml Q12H PRN PO Mild constipation Last administered on 08/09/17at 08:30; Start 08/06/17 at 01:30 Sennosides (Senokot) 17.2 mg Q12H PRN PO Moderate constipation Last administered on 08/09/17at 08:30; Start 08/06/17 at 01:30 Bisacodyl (Dulcolax Supp) 10 mg DAILY PRN RECTAL SEVERE CONSITIPATION; Start at 01:30 Lactulose (Lactulose Liq) 30 ml DAILY PRN PO SEVERE CONSITIPATION Last administered on 08/10/17at 07:46; Start 08/06/17 at 01:30 Flumazenil (Romazicon Inj) 0.2 mg Q1M PRN IV PUSH SEE LABEL COMMENTS; Start at 01:30; Stop 08/06/17 at 12:10; Status DC Lorazepam (Ativan) 1 mg Q4H PRN PO CIWA 8 - 10 Last administered on 08/12/17at 10:21; Start 08/06/17 at 01:30 Lorazepam (Ativan Inj) 1 mg Q4H PRN IV PUSH CIWA 8 - 10 Last administered on at 05:57; Start 08/06/17 at 01:30 Lorazepam (Ativan) 2 mg Q2H PRN PO CIWA 11-14 Last administered on 08/14/17at 02 :23; Start 08/06/17 at 01:30 Lorazepam (Ativan Inj) 2 mg Q2H PRN IV PUSH CIWA 11-14 Last administered on at 21:03; Start 08/06/17 at 01:30 Lorazepam (Ativan Inj) 2 mg Q1H PRN IV PUSH CIWA 15-20 Last administered on at 09:41; Start 08/06/17 at 01:30 Lorazepam (Ativan Inj) 2 mg Q15M PRN IV PUSH CIWA > 20 Last administered on at 17:49; Start 08/06/17 at 01:30 Atenolol (Tenormin) 25 mg DAILY PO ; Start 08/06/17 at 09:00; Stop 08/10/17 at 17:35; Status DC Pravastatin Sodium (Pravachol) 80 mg HS PO Last administered on 08/13/17at 21:02 ; Start 08/06/17 at 21:00 Pneumococcal Polyvalent Vaccine (Pneumovax-23 Inj) 25 mcg ONCE ONCE IM ; Start 08/07/17 at 10:00; Stop 08/07/17 at 10:01; Status DC Multivitamins 10 ml/Folic Acid 1 mg/Sodium Chloride 510.2 ml @ 125 mls/hr Q24H IV Last administered on 08/10/17at 11:52; Start 08/06/17 at 13:00; Stop at 17:35; Status DC Thiamine HCl 100 mg/Sodium Chloride 101 ml @ 100 mls/hr Q24H IV Last administered on 08/08/17at 11:51; Start 08/06/17 at 13:00; Stop 08/09/17 at 12:59 ; Status DC Thiamine HCl (Vitamin B1) 100 mg DAILY PO Last administered on 08/14/17at 09:42 ; Start 08/10/17 at 09:00 Clonidine (Catapres) 0.1 mg Q6H PRN PO SEE LABEL COMMENTS Last administered on 08/10/17at 16:54; Start 08/06/17 at 13:00 Flumazenil (Romazicon Inj) 0.2 mg Q1M PRN IV PUSH SEE LABEL COMMENTS; Start at 11:45 Haloperidol Lactate (Haldol Inj) 2 mg Q15M PRN IM SEE LABEL COMMENTS Last administered on 08/06/17at 16:53; Start 08/06/17 at 13:00; Stop 08/06/17 at 20:06 ; Status DC Dextrose (D50w (Vial) Inj) 50 ml UNSCH PRN IV PUSH HYPOGLYCEMIA-SEE COMMENTS; Start 08/06/17 at 13:30 Glucagon (Glucagon Inj) 1 mg UNSCH PRN OTHER HYPOGLYCEMIA-SEE COMMENTS; Start 08/06/17 at 13:30 Dexmedetomidine HCl 200 mcg/ Sodium Chloride 52 ml @ 3.79 mls/hr TITRATE PRN IV SEDATION Last administered on 08/08/17at 06:35; Start 08/06/17 at 20:00; Stop 08/10/17 at 17:29; Status DC Haloperidol Lactate (Haldol Inj) 2 mg Q4H PRN IM HALLUCINATIONS Last administered on 08/09/17at 16:50; Start 08/06/17 at 20:15; Stop 08/10/17 at 21:15 ; Status DC Metoprolol Tartrate (Lopressor Inj) 2.5 mg Q6H IV PUSH Last administered on at 01:51; Start 08/06/17 at 21:00; Stop 08/09/17 at 09:07; Status DC Potassium Chloride 100 ml @ 50 mls/hr Q2H PRN IV-CENTRAL For Potassium 2.8 - 3.2 mEq/L; Start 08/06/17 at 20:15 Potassium Chloride 100 ml @ 50 mls/hr Q2H PRN IV For Potassium 2.8 - 3.2 mEq/ L Last administered on 08/09/17at 12:30; Start 08/06/17 at 20:15 Potassium Bicarb/ Potassium Chloride (K-Lyte Cl Eff) 50 meq UNSCH PRN PO For Potassium 3.3 - 3.5 mEq/L; Start 08/06/17 at 20:15 Potassium Chloride 100 ml @ 25 mls/hr UNSCH PRN IV-CENTRAL For Potassium 3.3 - 3.5 mEq/L; Start 08/06/17 at 20:15 Potassium Chloride 100 ml @ 50 mls/hr Q2H PRN IV For Potassium 3.3 - 3.5 mEq/L ; Start 08/06/17 at 20:15 Magnesium Sulfate 4 gm/Sodium Chloride 100 ml @ 50 mls/hr UNSCH PRN IV For Magnesium 0.9 - 1.1 mg/dL; Start 08/06/17 at 20:15 Magnesium Oxide (Mag-Ox) 800 mg UNSCH PRN PO For Magnesium 1.2 - 1.6 mg/dL; Start 08/06/17 at 20:15 Magnesium Sulfate 2 gm/Sodium Chloride 100 ml @ 50 mls/hr UNSCH PRN IV For Magnesium 1.2 - 1.6 mg/dL; Start 08/06/17 at 20:15 Potassium Phosphate (K-Phos) 2,000 mg Q4H PRN PO For Phosphorus < 2.5 mg/dL; Start 08/06/17 at 20:15 Sodium Phosphate 30 mmol/Sodium Chloride 250 ml @ 42 mls/hr UNSCH PRN IV For Phosphorus < 2.5 mg/dL; Start 08/06/17 at 20:15 Potassium Phosphate (K-Phos) 2,000 mg UNSCH PRN PO/TUBE SEE LABEL COMMENTS; Start 08/06/17 at 20:15 Potassium Phosphate 30 mmol/ Sodium Chloride 260 ml @ 42 mls/hr UNSCH PRN IV SEE LABEL COMMENTS; Start 08/06/17 at 20:15 Famotidine (Pepcid Inj) 20 mg Q12H IV PUSH Last administered on 08/07/17at 08:51 ; Start 08/06/17 at 21:00; Stop 08/07/17 at 10:18; Status DC Miscellaneous Information Patient in critical care unit? Ass... Q361D .XX Last administered on 08/06/17at 20:30; Start 08/06/17 at 20:30 Chlorhexidine Gluconate (Chlorhexidine 2% Cloth) 3 pack DAILY@04 TOPICAL Last administered on 08/11/17at 04:00; Start 08/07/17 at 04:00; Stop 08/11/17 at 04:01 ; Status DC Chlorhexidine Gluconate (Chlorhexidine 2% Cloth) 3 pack UNSCH PRN TOPICAL HYGIENIC CARE; Start 08/06/17 at 20:30; Stop 08/11/17 at 20:18; Status DC Lactated Ringer's 1,000 ml @ 125 mls/hr Q8H IV Last administered on 08/09/17at 04:03; Start 08/06/17 at 21:00; Stop 08/09/17 at 08:58; Status DC Enoxaparin Sodium (Lovenox Inj) 40 mg Q24H SQ Last administered on 08/14/17at 04 :38; Start 08/07/17 at 04:00 Famotidine (Pepcid) 20 mg BID PO Last administered on 08/14/17at 09:41; Start at 21:00 Baclofen (Lioresal) 10 mg QID PO Last administered on 08/14/17at 09:41; Start at 18:00 Buspirone HCl (Buspar) 20 mg TID PO Last administered on 08/14/17 09:41; Start 08/08/17 at 18:00 Hydroxyzine Pamoate (Vistaril) 50 mg HS PO Last administered on 08/09/17at 19:56 ; Start 08/08/17 at 21:00; Stop 08/10/17 at 15:01; Status DC Quetiapine Fumarate (SEROquel) 400 mg HS PO Last administered on 08/13/17at 21: 03; Start 08/08/17 at 21:00 Dextrose/Sodium Chloride 1,000 ml @ 84 mls/hr [id number] IV Last administered on 08/10/17at 10:17; Start 08/09/17 at 09:00; Stop 08/10/17 at 17:29; Status DC Metoprolol Tartrate (Lopressor) 25 mg Q12HR PO Last administered on 08/14/17 09:41; Start 08/09/17 at 09:30 Hydroxyzine HCl (Atarax) 50 mg HS PO Last administered on 08/13/17at 21:03; Start 08/10/17 at 21:00 Multivitamins (Theragran) 1 tab DAILY PO Last administered on 08/14/17 09:41; Start 08/11/17 at 09:00 Folic Acid (Folate) 1 mg DAILY PO Last administered on 08/14/17 09:42; Start 08/11/17 at 09:00 Lisinopril (Prinivil) 5 mg DAILY PO Last administered on 08/14/17at 09:42; Start 08/10/17 at 17:30 Hydralazine HCl (Apresoline Inj) 10 mg Q4H PRN IV PUSH SBP >165; Start at 17:45 Haloperidol Lactate (Haldol Inj) 2 mg Q4H PRN IV PUSH HALLUCINATIONS Last administered on 08/11/17at 12:27; Start 08/11/17 at 00:15; Stop 08/11/17 at 16:12 ; Status DC Haloperidol Lactate (Haldol Inj) 2 mg Q4H PRN IM AGITATION Last administered on 08/14/17at 09:48; Start 08/11/17 at 16:15 A/P Assessment and Plan This is a 56 y/o alcoholism p/w AMS Agitated delirium appears consistent with alcohol/benzo withdrawal Bipolar disorder h/o dementia History of polysubstance abuse Continue CIWA protocol Haldol 2 mg IM q4 hours prn. Monitor QTc. Trazodone 20 mill grams by mouth daily at bedtime, duloxetine 30 g by mouth daily, Seroquel 400 mg, vistaril 50 daily, buspirone 20 mg by mouth 3 times a day and baclofen 10 mg by mouth 4 times a day Precedex drip off since 08/08. CT brain unremarkable Ammonia level normal at 29 on 2/19 Urine drug screen positive for cannabinoids. Alcohol less than 3 Thiamine/multivitamin/folate acid supplementation through 08/11/17 Psychiatry following, Dr. Hilliard. Improving but continues to hallucinate. Continue with current regimen. Altered mental status is improving. At the moment though he is intermittently altered. Will need to continue with nonviolent restraints due to confusion which can increase harm to himself and staff. Coronary artery disease Prior CABG Hypertension Hyperlipidemia Continue Lopressor 25mg Q12. Heart rate is in 50s. Continue with lisinopril 5 mg p.o. daily due to hypertension. Monitor HR and BP keep MAP>65mmHg Pravastatin 80 mg po qhs AST elevation On PO diet. Liver ultrasound 08/10 nothing acute. Hepatitis C antibody positive Once patient is not altered will have discussion with patient. Mild dehydration Monitor renal function, electrolytes replacement per protocol. On D5NS@84ml/hr --> discontinue PROPH: SCDs/Lovenox for DVT prophylaxis. Famotidine for stress ulcer prophylaxis Georgette aDhl MD Aug 14, 2017 15:10
[2017-08-14] MEDS: LORazepam 1 MG TAB PO PRN (19:21)
[2017-08-14] MEDS: PRAVASTATIN SOD 80 MG TAB PO SCH ×2 (21:00→22:08)
[2017-08-14] MEDS: hydrOXYzine HCL 50 MG TAB PO SCH ×2 (21:00→22:08)
[2017-08-14] MEDS: QUEtiapine FUMARATE 200 MG TAB PO SCH ×2 (21:00→22:08)
[2017-08-15] VITALS (17 sets, daily range): BP systolic 109–175; BP diastolic 59–94; PULSE 70–91; RESP 12–21; TEMP 97.7–98.7; O2SAT 83–100
[2017-08-15] MEDS: LORazepam 2 MG/ML VIAL IV PUSH PRN ×3 (02:25→21:37)
[2017-08-15] MEDS: LORazepam 2 MG TAB PO PRN ×2 (02:29→16:01)
[2017-08-15] MEDS: HALOPERIDOL LACTATE 5 MG/ML AMP IM PRN ×3 (03:00→16:04)
[2017-08-15] MEDS: ENOXAPARIN SODIUM 40 MG/0.4 ML SYRINGE SQ SCH (03:01)
[2017-08-15] MEDS: DOCUSATE SODIUM 50 MG/SENNA 8.6 MG TAB PO SCH ×2 (09:00→19:52)
[2017-08-15] MEDS: FOLIC ACID 1 MG TAB PO SCH (09:41)
[2017-08-15] MEDS: THIAMINE HCL 100 MG TAB PO SCH (09:41)
[2017-08-15] MEDS: BACLOFEN 10 MG TAB PO SCH ×4 (09:41→19:42)
[2017-08-15] MEDS: MULTIVITAMIN TAB PO SCH (09:41)
[2017-08-15] MEDS: busPIRone HCL 10 MG TAB PO SCH ×3 (09:41→18:15)
[2017-08-15] MEDS: FAMOTIDINE 20 MG TAB PO SCH ×2 (09:42→19:42)
[2017-08-15] MEDS: SODIUM CHLORIDE 0.9% FLUSH 10 ML FLUSH IV FLUSH SCH ×2 (09:42→19:52)
[2017-08-15] MEDS: LISINOPRIL 5 MG TAB PO SCH (09:42)
[2017-08-15] MEDS: METOPROLOL TARTRATE 25 MG TAB PO SCH ×2 (09:42→19:41)
--- NOTE | 2017-08-15 12:54 | HHI.PR ---
Subjective Remarks in no acute distress. d/w the RN and reportedly was agitated earlier today. now on restraints and is calm. denies pain. Objective Vitals Vital Signs Date Time Temp Pulse Resp B/P (MAP) Pulse Ox O2 Delivery O2 Flow Rate FiO2 08/15/17 09:00 88 21 125/76 (92) 100 08/15/17 08:00 98.6 83 14 109/74 (86) 83 08/15/17 07:28 98 21 08/15/17 07:00 81 12 116/70 (85) 96 08/15/17 06:00 79 08/15/17 04:00 98.7 78 13 138/90 (106) 100 08/15/17 04:00 78 08/15/17 02:00 85 08/15/17 00:00 97.9 75 14 133/78 (96) 95 08/15/17 00:00 75 08/14/17 22:00 91 08/14/17 21:25 96 21 08/14/17 20:00 98.7 93 19 156/81 (106) 82 08/14/17 20:00 93 08/14/17 18:00 72 16 130/81 (97) 98 08/14/17 18:00 72 08/14/17 17:00 74 19 144/64 (90) 57 08/14/17 17:00 78 08/14/17 16:00 97.8 74 15 142/108 (119) 100 08/14/17 16:00 72 08/14/17 15:00 82 08/14/17 15:00 82 25 118/73 (88) 98 08/14/17 14:00 79 15 113/80 (91) 98 08/14/17 14:00 79 08/14/17 13:00 84 15 126/80 (95) 98 08/14/17 13:00 84 I/O 08/14/17 08/14/17 08/14/17 08/15/17 08/15/17 08/15/17 07:00 15:00 23:00 07:00 15:00 23:00 Intake Total 220 ml 360 ml 180 ml Output Total 560 ml 400 ml 100 ml Balance -340 ml -40 ml 80 ml Intake Oral 220 ml 360 ml 180 ml Output Urine Total 560 ml 400 ml 100 ml # Voids 2 # Bowel Movements 0 Result Diagram: 08/14/17 0612 08/14/17 0612 Imaging Last Impressions Liver Ultrasound 08/10/17 0000 Signed Impressions: Service Date/Time: Thursday, August 10, 2017 08:55 - CONCLUSION: No acute disease. Abran Shell MD Head CT 08/06/172212 Signed Impressions: Service Date/Time: Sunday, August 06, 2017 23:55 - CONCLUSION: 1. No acute hemorrhage, mass or infarction. 2. Remote right parietal infarct. Javy Tolbert MD Chest X-Ray 08/05/172212 Signed Impressions: Service Date/Time: Saturday, August 05, 2017 22:27 - CONCLUSION: No acute disease Abran Mendoza MD Objective Remarks GENERAL: This is a well-nourished, well-developed patient, in no apparent distress. CARDIOVASCULAR: Regular rate and regular rhythm without murmurs, gallops, or rubs. RESPIRATORY: Clear to auscultation. Breath sounds equal bilaterally. No wheezes , rales, or rhonchi. GASTROINTESTINAL: Abdomen soft, non-tender, nondistended. Normal, active bowel sounds MUSCULOSKELETAL: Extremities without clubbing, cyanosis, or edema. NEURO: awake,alert and oriented to person and place. Medications and IVs Inpatient Medications Acetaminophen (Tylenol) 650 mg Q4H PRN PO TEMP > 100.4; Start 08/06/17 at 01:30 Atenolol (Tenormin) 25 mg DAILY PO ; Start 08/06/17 at 09:00; Stop 08/10/17 at 17:35; Status DC Baclofen (Lioresal) 10 mg QID PO Last administered on 08/15/17at 09:41; Start at 18:00 Bisacodyl (Dulcolax Supp) 10 mg DAILY PRN RECTAL SEVERE CONSITIPATION; Start at 01:30 Buspirone HCl (Buspar) 20 mg TID PO Last administered on 08/15/17at 09:41; Start 08/08/17 at 18:00 Chlorhexidine Gluconate (Chlorhexidine 2% Cloth) 3 pack UNSCH PRN TOPICAL HYGIENIC CARE; Start 08/06/17 at 20:30; Stop 08/11/17 at 20:18; Status DC Clonidine (Catapres) 0.1 mg Q6H PRN PO SEE LABEL COMMENTS Last administered on 08/10/17at 16:54; Start 08/06/17 at 13:00 Dexmedetomidine HCl 200 mcg/ Sodium Chloride 52 ml @ 3.79 mls/hr TITRATE PRN IV SEDATION Last administered on 08/08/17at 06:35; Start 08/06/17 at 20:00; Stop 08/10/17 at 17:29; Status DC Dextrose (D50w (Vial) Inj) 50 ml UNSCH PRN IV PUSH HYPOGLYCEMIA-SEE COMMENTS; Start 08/06/17 at 13:30 Dextrose/Sodium Chloride 1,000 ml @ 84 mls/hr [id number] IV Last administered on 08/10/17at 10:17; Start 08/09/17 at 09:00; Stop 08/10/17 at 17:29; Status DC Enoxaparin Sodium (Lovenox Inj) 40 mg Q24H SQ Last administered on 08/15/17at 03: 01; Start 08/07/17 at 04:00 Famotidine (Pepcid Inj) 20 mg Q12H IV PUSH Last administered on 08/07/17at 08:51 ; Start 08/06/17 at 21:00; Stop 08/07/17 at 10:18; Status DC Famotidine (Pepcid) 20 mg BID PO Last administered on 08/15/17at 09:42; Start at 21:00 Flumazenil (Romazicon Inj) 0.2 mg Q1M PRN IV PUSH SEE LABEL COMMENTS; Start at 11:45 Folic Acid (Folate) 1 mg DAILY PO Last administered on 08/15/17at 09:41; Start at 09:00 Glucagon (Glucagon Inj) 1 mg UNSCH PRN OTHER HYPOGLYCEMIA-SEE COMMENTS; Start 08/06/17 at 13:30 Haloperidol Lactate (Haldol Inj) 2 mg Q4H PRN IM AGITATION Last administered on 08/15/17at 10:38; Start 08/11/17 at 16:15 Hydralazine HCl (Apresoline Inj) 10 mg Q4H PRN IV PUSH SBP >165; Start at 17:45 Hydroxyzine Pamoate (Vistaril) 50 mg HS PO Last administered on 08/09/17 19:56 ; Start 08/08/17 at 21:00; Stop 08/10/17 at 15:01; Status DC Hydroxyzine HCl (Atarax) 50 mg HS PO Last administered on 08/13/17at 21:03; Start 08/10/17 at 21:00 Lactated Ringer's 1,000 ml @ 125 mls/hr Q8H IV Last administered on 08/09/17at 04:03; Start 08/06/17 at 21:00; Stop 08/09/17 at 08:58; Status DC Lactulose (Lactulose Liq) 30 ml DAILY PRN PO SEVERE CONSITIPATION Last administered on 08/10/17 07:46; Start 08/06/17 at 01:30 Lisinopril (Prinivil) 5 mg DAILY PO Last administered on 08/15/17 09:42; Start 08/10/17 at 17:30 Lorazepam (Ativan Inj) 2 mg Q15M PRN IV PUSH CIWA > 20 Last administered on at 17:49; Start 08/06/17 at 01:30 Lorazepam (Ativan) 2 mg Q2H PRN PO CIWA 11-14 Last administered on 08/15/17at 02: 29; Start 08/06/17 at 01:30 Magnesium Hydroxide (Milk Of Magnesia Liq) 30 ml Q12H PRN PO Mild constipation Last administered on 08/09/17at 08:30; Start 08/06/17 at 01:30 Magnesium Oxide (Mag-Ox) 800 mg UNSCH PRN PO For Magnesium 1.2 - 1.6 mg/dL; Start 08/06/17 at 20:15 Magnesium Sulfate 2 gm/Sodium Chloride 100 ml @ 50 mls/hr UNSCH PRN IV For Magnesium 1.2 - 1.6 mg/dL; Start 08/06/17 at 20:15 Magnesium Sulfate 4 gm/Sodium Chloride 100 ml @ 50 mls/hr UNSCH PRN IV For Magnesium 0.9 - 1.1 mg/dL; Start 08/06/17 at 20:15 Metoprolol Tartrate (Lopressor Inj) 2.5 mg Q6H IV PUSH Last administered on at 01:51; Start 08/06/17 at 21:00; Stop 08/09/17 at 09:07; Status DC Metoprolol Tartrate (Lopressor) 25 mg Q12HR PO Last administered on 08/15/17at 09 :42; Start 08/09/17 at 09:30 Miscellaneous Information Patient in critical care unit? Ass... Q361D .XX Last administered on 08/06/17at 20:30; Start 08/06/17 at 20:30 Multivitamins (Theragran) 1 tab DAILY PO Last administered on 08/15/17at 09:41; Start 08/11/17 at 09:00 Multivitamins 10 ml/Folic Acid 1 mg/Sodium Chloride 510.2 ml @ 125 mls/hr Q24H IV Last administered on 08/10/17at 11:52; Start 08/06/17 at 13:00; Stop at 17:35; Status DC Naloxone HCl (Narcan Inj) 0.4 mg UNSCH PRN IV PUSH SEE LABEL COMMENTS; Start at 01:30 Ondansetron HCl (Zofran Inj) 4 mg Q6H PRN IVP NAUSEA OR VOMITING; Start at 01:30 Pneumococcal Polyvalent Vaccine (Pneumovax-23 Inj) 25 mcg ONCE ONCE IM ; Start 08/07/17 at 10:00; Stop 08/07/17 at 10:01; Status DC Potassium Phosphate (K-Phos) 2,000 mg UNSCH PRN PO/TUBE SEE LABEL COMMENTS; Start 08/06/17 at 20:15 Potassium Phosphate 30 mmol/ Sodium Chloride 260 ml @ 42 mls/hr UNSCH PRN IV SEE LABEL COMMENTS; Start 08/06/17 at 20:15 Potassium Bicarb/ Potassium Chloride (K-Lyte Cl Eff) 50 meq UNSCH PRN PO For Potassium 3.3 - 3.5 mEq/L; Start 08/06/17 at 20:15 Potassium Chloride 100 ml @ 50 mls/hr Q2H PRN IV For Potassium 3.3 - 3.5 mEq/L ; Start 08/06/17 at 20:15 Pravastatin Sodium (Pravachol) 80 mg HS PO Last administered on 08/13/17at 21:02 ; Start 08/06/17 at 21:00 Quetiapine Fumarate (SEROquel) 400 mg HS PO Last administered on 08/13/17at 21: 03; Start 08/08/17 at 21:00 Senna/Docusate Sodium (Brooke-Colace) 1 tab BID PO Last administered on at 21:03; Start 08/06/17 at 09:00 Sennosides (Senokot) 17.2 mg Q12H PRN PO Moderate constipation Last administered on 08/09/17at 08:30; Start 08/06/17 at 01:30 Sodium Chloride (NS Flush) 2 ml BID IV FLUSH Last administered on 08/15/17 09: 42; Start 08/06/17 at 09:00 Sodium Phosphate 30 mmol/Sodium Chloride 250 ml @ 42 mls/hr UNSCH PRN IV For Phosphorus < 2.5 mg/dL; Start 08/06/17 at 20:15 Thiamine HCl (Vitamin B1) 100 mg DAILY PO Last administered on 08/15/17at 09:41; Start 08/10/17 at 09:00 Thiamine HCl 100 mg/Sodium Chloride 101 ml @ 100 mls/hr Q24H IV Last administered on 08/08/17at 11:51; Start 08/06/17 at 13:00; Stop 08/09/17 at 12:59 ; Status DC A/P Assessment and Plan Agitated delirium appears consistent with alcohol/benzo withdrawal Bipolar disorder h/o dementia History of polysubstance abuse Continue CIWA protocol Haldol 2 mg IM q4 hours prn. Monitor QTc. Precedex drip off since 08/08. CT brain unremarkable Ammonia level normal at 29 on 08/05 Urine drug screen positive for cannabinoids. Alcohol less than 3 Thiamine/multivitamin/folate acid supplementation through 08/11/17 Psychiatry following, Dr. Hilliard. Improving but continues to hallucinate. Continue with current regimen. Altered mental status is improving. At the moment though he is intermittently altered. continue seroquel- ativan and haldol as needed. Coronary artery disease Prior CABG Hypertension Hyperlipidemia Continue Lopressor 25mg Q12. Heart rate is in 50s. Continue with lisinopril 5 mg p.o. daily due to hypertension. Monitor HR and BP keep MAP>65mmHg Pravastatin 80 mg po qhs AST elevation On PO diet. Liver ultrasound 08/10 nothing acute. Hepatitis C antibody positive Once patient is not altered will have discussion with patient. transfer to medical floor- consult PT. Discharge Planning case management for dc planning. Anand Bell MD Aug 15, 2017 12:54
[2017-08-15] MEDS: PRAVASTATIN SOD 80 MG TAB PO SCH (19:41)
[2017-08-15] MEDS: QUEtiapine FUMARATE 200 MG TAB PO SCH (19:41)
[2017-08-15] MEDS: hydrOXYzine HCL 50 MG TAB PO SCH (19:43)
[2017-08-16] VITALS (8 sets, daily range): BP systolic 99–112; BP diastolic 56–79; PULSE 71–109; RESP 16–18; TEMP 97–98.4; O2SAT 95–97
[2017-08-16] MEDS: ENOXAPARIN SODIUM 40 MG/0.4 ML SYRINGE SQ SCH (04:40)
[2017-08-16] MEDS: LISINOPRIL 5 MG TAB PO SCH (09:00)
[2017-08-16] MEDS: SODIUM CHLORIDE 0.9% FLUSH 10 ML FLUSH IV FLUSH SCH ×2 (09:00→19:43)
[2017-08-16] MEDS: METOPROLOL TARTRATE 25 MG TAB PO SCH ×2 (09:00→19:42)
[2017-08-16] MEDS: DOCUSATE SODIUM 50 MG/SENNA 8.6 MG TAB PO SCH ×2 (09:44→19:43)
[2017-08-16] MEDS: THIAMINE HCL 100 MG TAB PO SCH (09:44)
[2017-08-16] MEDS: BACLOFEN 10 MG TAB PO SCH ×4 (09:44→19:42)
[2017-08-16] MEDS: FOLIC ACID 1 MG TAB PO SCH (09:45)
[2017-08-16] MEDS: MULTIVITAMIN TAB PO SCH (09:45)
[2017-08-16] MEDS: FAMOTIDINE 20 MG TAB PO SCH ×2 (09:45→19:42)
[2017-08-16] MEDS: busPIRone HCL 10 MG TAB PO SCH ×3 (09:45→17:36)
--- NOTE | 2017-08-16 11:13 | HHI.PR ---
Subjective Remarks in no acute distress. is calm. but still on restraints. no fever. Objective Vitals Vital Signs Date Time Temp Pulse Resp B/P (MAP) Pulse Ox O2 Delivery O2 Flow Rate FiO2 08/16/17 08:00 97.7 81 16 106/65 (79) 95 08/16/17 06:30 72 08/16/17 04:00 97.0 73 18 109/56 (73) 97 08/16/17 00:33 71 08/15/17 19:53 98.0 78 16 125/59 (81) 08/15/17 18:00 97.7 78 18 113/76 (88) 97 08/15/17 16:00 71 08/15/17 16:00 98.4 71 15 139/85 (103) 08/15/17 15:00 70 14 129/73 (91) 97 08/15/17 15:00 70 08/15/17 14:00 91 13 143/86 (105) 97 08/15/17 14:00 91 08/15/17 13:00 82 15 175/94 (121) 96 08/15/17 13:00 82 08/15/17 12:00 98.2 89 15 119/74 (89) 96 08/15/17 12:00 89 I/O 08/15/17 08/15/17 08/15/17 08/16/17 08/16/17 08/16/17 07:00 15:00 23:00 07:00 15:00 23:00 Intake Total 180 ml 180 ml Output Total 100 ml Balance 80 ml 180 ml Intake Oral 180 ml 180 ml Output Urine Total 100 ml # Voids 2 0 1 Result Diagram: 08/14/1712 08/14/17 0612 Imaging Last Impressions Liver Ultrasound 08/10/17 0000 Signed Impressions: Service Date/Time: Thursday, August 10, 2017 08:55 - CONCLUSION: No acute disease. Abran Shell MD Head CT 08/06/172212 Signed Impressions: Service Date/Time: Sunday, August 06, 2017 23:55 - CONCLUSION: 1. No acute hemorrhage, mass or infarction. 2. Remote right parietal infarct. Javy Tolbert MD Chest X-Ray 08/05/172212 Signed Impressions: Service Date/Time: Saturday, August 05, 2017 22:27 - CONCLUSION: No acute disease Abran Mendoza MD Objective Remarks GENERAL: This is a well-nourished, well-developed patient, in no apparent distress. CARDIOVASCULAR: Regular rate and regular rhythm without murmurs, gallops, or rubs. RESPIRATORY: Clear to auscultation. Breath sounds equal bilaterally. No wheezes , rales, or rhonchi. GASTROINTESTINAL: Abdomen soft, non-tender, nondistended. Normal, active bowel sounds MUSCULOSKELETAL: Extremities without clubbing, cyanosis, or edema. NEURO: awake,alert and oriented to person and place. Medications and IVs Inpatient Medications Acetaminophen (Tylenol) 650 mg Q4H PRN PO TEMP > 100.4; Start 08/06/17 at 01:30 Atenolol (Tenormin) 25 mg DAILY PO ; Start 08/06/17 at 09:00; Stop 08/10/17 at 17:35; Status DC Baclofen (Lioresal) 10 mg QID PO Last administered on 08/16/17at 09:44; Start at 18:00 Bisacodyl (Dulcolax Supp) 10 mg DAILY PRN RECTAL SEVERE CONSITIPATION; Start at 01:30 Buspirone HCl (Buspar) 20 mg TID PO Last administered on 08/16/17at 09:45; Start 08/08/17 at 18:00 Chlorhexidine Gluconate (Chlorhexidine 2% Cloth) 3 pack UNSCH PRN TOPICAL HYGIENIC CARE; Start 08/06/17 at 20:30; Stop 08/11/17 at 20:18; Status DC Clonidine (Catapres) 0.1 mg Q6H PRN PO SEE LABEL COMMENTS Last administered on 08/10/17at 16:54; Start 08/06/17 at 13:00 Dexmedetomidine HCl 200 mcg/ Sodium Chloride 52 ml @ 3.79 mls/hr TITRATE PRN IV SEDATION Last administered on 08/08/17at 06:35; Start 08/06/17 at 20:00; Stop 08/10/17 at 17:29; Status DC Dextrose (D50w (Vial) Inj) 50 ml UNSCH PRN IV PUSH HYPOGLYCEMIA-SEE COMMENTS; Start 08/06/17 at 13:30 Dextrose/Sodium Chloride 1,000 ml @ 84 mls/hr [id number] IV Last administered on 08/10/17at 10:17; Start 08/09/17 at 09:00; Stop 08/10/17 at 17:29; Status DC Enoxaparin Sodium (Lovenox Inj) 40 mg Q24H SQ Last administered on 08/16/17 04: 40; Start 08/07/17 at 04:00 Famotidine (Pepcid Inj) 20 mg Q12H IV PUSH Last administered on 08/07/17at 08:51 ; Start 08/06/17 at 21:00; Stop 08/07/17 at 10:18; Status DC Famotidine (Pepcid) 20 mg BID PO Last administered on 08/16/17 09:45; Start at 21:00 Flumazenil (Romazicon Inj) 0.2 mg Q1M PRN IV PUSH SEE LABEL COMMENTS; Start at 11:45 Folic Acid (Folate) 1 mg DAILY PO Last administered on 08/16/17at 09:45; Start at 09:00 Glucagon (Glucagon Inj) 1 mg UNSCH PRN OTHER HYPOGLYCEMIA-SEE COMMENTS; Start 08/06/17 at 13:30 Haloperidol Lactate (Haldol Inj) 2 mg Q4H PRN IM AGITATION Last administered on 08/15/17at 16:04; Start 08/11/17 at 16:15 Hydralazine HCl (Apresoline Inj) 10 mg Q4H PRN IV PUSH SBP >165; Start at 17:45 Hydroxyzine Pamoate (Vistaril) 50 mg HS PO Last administered on 08/09/17at 19:56 ; Start 08/08/17 at 21:00; Stop 08/10/17 at 15:01; Status DC Hydroxyzine HCl (Atarax) 50 mg HS PO Last administered on 08/15/17at 19:43; Start 08/10/17 at 21:00 Lactated Ringer's 1,000 ml @ 125 mls/hr Q8H IV Last administered on 08/09/17at 04:03; Start 08/06/17 at 21:00; Stop 08/09/17 at 08:58; Status DC Lactulose (Lactulose Liq) 30 ml DAILY PRN PO SEVERE CONSITIPATION Last administered on 08/10/17at 07:46; Start 08/06/17 at 01:30 Lisinopril (Prinivil) 5 mg DAILY PO Last administered on 08/15/17at 09:42; Start 08/10/17 at 17:30 Lorazepam (Ativan Inj) 2 mg Q15M PRN IV PUSH CIWA > 20 Last administered on at 17:49; Start 08/06/17 at 01:30 Lorazepam (Ativan) 2 mg Q2H PRN PO CIWA 11-14 Last administered on 08/15/17at 16: 01; Start 08/06/17 at 01:30 Magnesium Hydroxide (Milk Of Aminah Liq) 30 ml Q12H PRN PO Mild constipation Last administered on 08/09/17at 08:30; Start 08/06/17 at 01:30 Magnesium Oxide (Mag-Ox) 800 mg UNSCH PRN PO For Magnesium 1.2 - 1.6 mg/dL; Start 08/06/17 at 20:15; Stop 08/15/17 at 15:45; Status DC Magnesium Sulfate 2 gm/Sodium Chloride 100 ml @ 50 mls/hr UNSCH PRN IV For Magnesium 1.2 - 1.6 mg/dL; Start 08/06/17 at 20:15; Stop 08/15/17 at 15:45; Status DC Magnesium Sulfate 4 gm/Sodium Chloride 100 ml @ 50 mls/hr UNSCH PRN IV For Magnesium 0.9 - 1.1 mg/dL; Start 08/06/17 at 20:15; Stop 08/15/17 at 15:45; Status DC Metoprolol Tartrate (Lopressor Inj) 2.5 mg Q6H IV PUSH Last administered on at 01:51; Start 08/06/17 at 21:00; Stop 08/09/17 at 09:07; Status DC Metoprolol Tartrate (Lopressor) 25 mg Q12HR PO Last administered on 08/15/17at 19 :41; Start 08/09/17 at 09:30 Miscellaneous Information Patient in critical care unit? Ass... Q361D .XX Last administered on 08/06/17at 20:30; Start 08/06/17 at 20:30 Multivitamins (Theragran) 1 tab DAILY PO Last administered on 08/16/17at 09:45; Start 08/11/17 at 09:00 Multivitamins 10 ml/Folic Acid 1 mg/Sodium Chloride 510.2 ml @ 125 mls/hr Q24H IV Last administered on 08/10/17at 11:52; Start 08/06/17 at 13:00; Stop at 17:35; Status DC Naloxone HCl (Narcan Inj) 0.4 mg UNSCH PRN IV PUSH SEE LABEL COMMENTS; Start at 01:30 Ondansetron HCl (Zofran Inj) 4 mg Q6H PRN IVP NAUSEA OR VOMITING; Start at 01:30 Pneumococcal Polyvalent Vaccine (Pneumovax-23 Inj) 25 mcg ONCE ONCE IM ; Start 08/07/17 at 10:00; Stop 08/07/17 at 10:01; Status DC Potassium Phosphate (K-Phos) 2,000 mg UNSCH PRN PO/TUBE SEE LABEL COMMENTS; Start 08/06/17 at 20:15; Stop 08/15/17 at 15:45; Status DC Potassium Phosphate 30 mmol/ Sodium Chloride 260 ml @ 42 mls/hr UNSCH PRN IV SEE LABEL COMMENTS; Start 08/06/17 at 20:15; Stop 08/15/17 at 15:45; Status DC Potassium Bicarb/ Potassium Chloride (K-Lyte Cl Eff) 50 meq UNSCH PRN PO For Potassium 3.3 - 3.5 mEq/L; Start 08/06/17 at 20:15; Stop 08/15/17 at 15:44; Status DC Potassium Chloride 100 ml @ 50 mls/hr Q2H PRN IV For Potassium 3.3 - 3.5 mEq/L ; Start 08/06/17 at 20:15; Stop 08/15/17 at 15:45; Status DC Pravastatin Sodium (Pravachol) 80 mg HS PO Last administered on 08/15/17at 19:41 ; Start 08/06/17 at 21:00 Quetiapine Fumarate (SEROquel) 400 mg HS PO Last administered on 08/15/17at 19:41 ; Start 08/08/17 at 21:00 Senna/Docusate Sodium (Brooke-Colace) 1 tab BID PO Last administered on 08/16/17 09:44; Start 08/06/17 at 09:00 Sennosides (Senokot) 17.2 mg Q12H PRN PO Moderate constipation Last administered on 08/09/17at 08:30; Start 08/06/17 at 01:30 Sodium Chloride (NS Flush) 2 ml BID IV FLUSH Last administered on 08/15/17at 19: 52; Start 08/06/17 at 09:00 Sodium Phosphate 30 mmol/Sodium Chloride 250 ml @ 42 mls/hr UNSCH PRN IV For Phosphorus < 2.5 mg/dL; Start 08/06/17 at 20:15; Stop 08/15/17 at 15:45; Status DC Thiamine HCl (Vitamin B1) 100 mg DAILY PO Last administered on 08/16/17 09:44; Start 08/10/17 at 09:00 Thiamine HCl 100 mg/Sodium Chloride 101 ml @ 100 mls/hr Q24H IV Last administered on 08/08/17at 11:51; Start 08/06/17 at 13:00; Stop 08/09/17 at 12:59 ; Status DC A/P Assessment and Plan Agitated delirium appears consistent with alcohol/benzo withdrawal Bipolar disorder h/o dementia History of polysubstance abuse Continue CIWA protocol Haldol 2 mg IM q4 hours prn. Monitor QTc. CT brain unremarkable Ammonia level normal at 29 on 08/05 Urine drug screen positive for cannabinoids. Alcohol less than 3 Thiamine/multivitamin/folate acid supplementation Psychiatry following, Dr. Hilliard. Altered mental status is improving. At the moment though he is intermittently altered. continue seroquel- ativan and haldol as needed. Coronary artery disease Prior CABG Hypertension Hyperlipidemia Continue Lopressor 25mg Q12. Continue with lisinopril 5 mg p.o. daily due to hypertension. Pravastatin 80 mg po qhs AST elevation On PO diet. Liver ultrasound 08/10 nothing acute. Hepatitis C antibody positive Once patient is not altered will have discussion with patient. consulted PT. Discharge Planning case management for dc planning. still on restraints. Anand Bell MD Aug 16, 2017 11:13
[2017-08-16] MEDS: LORazepam 2 MG/ML VIAL IV PUSH PRN (18:47)
[2017-08-16] MEDS: PRAVASTATIN SOD 80 MG TAB PO SCH (19:41)
[2017-08-16] MEDS: QUEtiapine FUMARATE 200 MG TAB PO SCH (19:41)
[2017-08-16] MEDS: hydrOXYzine HCL 50 MG TAB PO SCH (19:42)
[2017-08-17] MEDS: ENOXAPARIN SODIUM 40 MG/0.4 ML SYRINGE SQ SCH (04:17)
[2017-08-17] MEDS: SODIUM CHLORIDE 0.9% FLUSH 10 ML FLUSH IV FLUSH SCH ×2 (07:55→22:59)
[2017-08-17] MEDS: FOLIC ACID 1 MG TAB PO SCH (07:58)
[2017-08-17] MEDS: BACLOFEN 10 MG TAB PO SCH ×4 (07:58→22:58)
[2017-08-17] MEDS: LORazepam 1 MG TAB PO PRN ×2 (07:58→13:01)
[2017-08-17] MEDS: LISINOPRIL 5 MG TAB PO SCH (07:58)
[2017-08-17] MEDS: FAMOTIDINE 20 MG TAB PO SCH ×2 (07:58→22:57)
[2017-08-17] MEDS: MULTIVITAMIN TAB PO SCH (07:58)
[2017-08-17] MEDS: busPIRone HCL 10 MG TAB PO SCH ×3 (07:58→16:21)
[2017-08-17] MEDS: DOCUSATE SODIUM 50 MG/SENNA 8.6 MG TAB PO SCH ×2 (07:58→22:58)
[2017-08-17] MEDS: METOPROLOL TARTRATE 25 MG TAB PO SCH ×2 (07:58→22:58)
[2017-08-17] MEDS: THIAMINE HCL 100 MG TAB PO SCH (07:59)
[2017-08-17 08:00] VITALS: BP 124/71; PULSE 78; RESP 19; TEMP 98.6; O2SAT 97
--- NOTE | 2017-08-17 10:56 | HHI.PR ---
Subjective Remarks in no acute distress. denies pain. still on restraints. Objective Vitals Vital Signs Date Time Temp Pulse Resp B/P (MAP) Pulse Ox O2 Delivery O2 Flow Rate FiO2 08/17/17 08:00 98.6 78 19 124/71 (88) 97 08/16/17 19:39 98.4 109 18 112/79 (90) 08/16/17 16:00 97.7 94 16 111/67 (82) 95 08/16/17 16:00 100 08/16/17 12:00 98.1 86 16 99/60 (73) 95 08/16/17 12:00 96 I/O 08/16/17 08/16/17 08/16/17 08/17/17 08/17/17 08/17/17 07:00 15:00 23:00 07:00 15:00 23:00 Intake Total 240 ml Balance 240 ml Intake Oral 240 ml # Voids 1 2 Result Diagram: 08/14/17 0612 08/14/17 0612 Imaging Last Impressions Liver Ultrasound 08/10/17 0000 Signed Impressions: Service Date/Time: Thursday, August 10, 2017 08:55 - CONCLUSION: No acute disease. Abran Shell MD Head CT 08/06/172212 Signed Impressions: Service Date/Time: Sunday, August 06, 2017 23:55 - CONCLUSION: 1. No acute hemorrhage, mass or infarction. 2. Remote right parietal infarct. Javy Tolbert MD Chest X-Ray 08/05/172212 Signed Impressions: Service Date/Time: Saturday, August 05, 2017 22:27 - CONCLUSION: No acute disease Abran Mendoza MD Objective Remarks GENERAL: This is a well-nourished, well-developed patient, in no apparent distress. CARDIOVASCULAR: Regular rate and regular rhythm without murmurs, gallops, or rubs. RESPIRATORY: Clear to auscultation. Breath sounds equal bilaterally. No wheezes , rales, or rhonchi. GASTROINTESTINAL: Abdomen soft, non-tender, nondistended. Normal, active bowel sounds MUSCULOSKELETAL: Extremities without clubbing, cyanosis, or edema. NEURO: awake,alert and oriented to person and place. Medications and IVs Inpatient Medications Acetaminophen (Tylenol) 650 mg Q4H PRN PO TEMP > 100.4; Start 08/06/17 at 01:30 Atenolol (Tenormin) 25 mg DAILY PO ; Start 08/06/17 at 09:00; Stop 08/10/17 at 17:35; Status DC Baclofen (Lioresal) 10 mg QID PO Last administered on 08/17/17at 07:58; Start at 18:00 Bisacodyl (Dulcolax Supp) 10 mg DAILY PRN RECTAL SEVERE CONSITIPATION; Start at 01:30 Buspirone HCl (Buspar) 20 mg TID PO Last administered on 08/17/17at 07:58; Start 08/08/17 at 18:00 Chlorhexidine Gluconate (Chlorhexidine 2% Cloth) 3 pack UNSCH PRN TOPICAL HYGIENIC CARE; Start 08/06/17 at 20:30; Stop 08/11/17 at 20:18; Status DC Clonidine (Catapres) 0.1 mg Q6H PRN PO SEE LABEL COMMENTS Last administered on 08/10/17at 16:54; Start 08/06/17 at 13:00 Dexmedetomidine HCl 200 mcg/ Sodium Chloride 52 ml @ 3.79 mls/hr TITRATE PRN IV SEDATION Last administered on 08/08/17at 06:35; Start 08/06/17 at 20:00; Stop 08/10/17 at 17:29; Status DC Dextrose (D50w (Vial) Inj) 50 ml UNSCH PRN IV PUSH HYPOGLYCEMIA-SEE COMMENTS; Start 08/06/17 at 13:30 Dextrose/Sodium Chloride 1,000 ml @ 84 mls/hr [id number] IV Last administered on 08/10/17at 10:17; Start 08/09/17 at 09:00; Stop 08/10/17 at 17:29; Status DC Enoxaparin Sodium (Lovenox Inj) 40 mg Q24H SQ Last administered on 08/17/17at 04: 17; Start 08/07/17 at 04:00 Famotidine (Pepcid Inj) 20 mg Q12H IV PUSH Last administered on 08/07/17at 08:51 ; Start 08/06/17 at 21:00; Stop 08/07/17 at 10:18; Status DC Famotidine (Pepcid) 20 mg BID PO Last administered on 08/17/17 07:58; Start at 21:00 Flumazenil (Romazicon Inj) 0.2 mg Q1M PRN IV PUSH SEE LABEL COMMENTS; Start at 11:45 Folic Acid (Folate) 1 mg DAILY PO Last administered on 08/17/17 07:58; Start at 09:00 Glucagon (Glucagon Inj) 1 mg UNSCH PRN OTHER HYPOGLYCEMIA-SEE COMMENTS; Start 08/06/17 at 13:30 Haloperidol Lactate (Haldol Inj) 2 mg Q4H PRN IM AGITATION Last administered on 08/15/17at 16:04; Start 08/11/17 at 16:15 Hydralazine HCl (Apresoline Inj) 10 mg Q4H PRN IV PUSH SBP >165; Start at 17:45 Hydroxyzine Pamoate (Vistaril) 50 mg HS PO Last administered on 08/09/17at 19:56 ; Start 08/08/17 at 21:00; Stop 08/10/17 at 15:01; Status DC Hydroxyzine HCl (Atarax) 50 mg HS PO Last administered on 08/16/17 19:42; Start 08/10/17 at 21:00 Lactated Ringer's 1,000 ml @ 125 mls/hr Q8H IV Last administered on 08/09/17at 04:03; Start 08/06/17 at 21:00; Stop 08/09/17 at 08:58; Status DC Lactulose (Lactulose Liq) 30 ml DAILY PRN PO SEVERE CONSITIPATION Last administered on 08/10/17at 07:46; Start 08/06/17 at 01:30 Lisinopril (Prinivil) 5 mg DAILY PO Last administered on 08/17/17 07:58; Start 08/10/17 at 17:30 Lorazepam (Ativan Inj) 2 mg Q15M PRN IV PUSH CIWA > 20 Last administered on at 17:49; Start 08/06/17 at 01:30 Lorazepam (Ativan) 2 mg Q2H PRN PO CIWA 11-14 Last administered on 08/15/17at 16: 01; Start 08/06/17 at 01:30 Magnesium Hydroxide (Milk Of Magnesia Liq) 30 ml Q12H PRN PO Mild constipation Last administered on 08/09/17at 08:30; Start 08/06/17 at 01:30 Magnesium Oxide (Mag-Ox) 800 mg UNSCH PRN PO For Magnesium 1.2 - 1.6 mg/dL; Start 08/06/17 at 20:15; Stop 08/15/17 at 15:45; Status DC Magnesium Sulfate 2 gm/Sodium Chloride 100 ml @ 50 mls/hr UNSCH PRN IV For Magnesium 1.2 - 1.6 mg/dL; Start 08/06/17 at 20:15; Stop 08/15/17 at 15:45; Status DC Magnesium Sulfate 4 gm/Sodium Chloride 100 ml @ 50 mls/hr UNSCH PRN IV For Magnesium 0.9 - 1.1 mg/dL; Start 08/06/17 at 20:15; Stop 08/15/17 at 15:45; Status DC Metoprolol Tartrate (Lopressor Inj) 2.5 mg Q6H IV PUSH Last administered on at 01:51; Start 08/06/17 at 21:00; Stop 08/09/17 at 09:07; Status DC Metoprolol Tartrate (Lopressor) 25 mg Q12HR PO Last administered on 08/17/17at 07 :58; Start 08/09/17 at 09:30 Miscellaneous Information Patient in critical care unit? Ass... Q361D .XX Last administered on 08/06/17at 20:30; Start 08/06/17 at 20:30 Multivitamins (Theragran) 1 tab DAILY PO Last administered on 08/17/17at 07:58; Start 08/11/17 at 09:00 Multivitamins 10 ml/Folic Acid 1 mg/Sodium Chloride 510.2 ml @ 125 mls/hr Q24H IV Last administered on 08/10/17at 11:52; Start 08/06/17 at 13:00; Stop at 17:35; Status DC Naloxone HCl (Narcan Inj) 0.4 mg UNSCH PRN IV PUSH SEE LABEL COMMENTS; Start at 01:30 Ondansetron HCl (Zofran Inj) 4 mg Q6H PRN IVP NAUSEA OR VOMITING; Start at 01:30 Pneumococcal Polyvalent Vaccine (Pneumovax-23 Inj) 25 mcg ONCE ONCE IM ; Start 08/07/17 at 10:00; Stop 08/07/17 at 10:01; Status DC Potassium Phosphate (K-Phos) 2,000 mg UNSCH PRN PO/TUBE SEE LABEL COMMENTS; Start 08/06/17 at 20:15; Stop 08/15/17 at 15:45; Status DC Potassium Phosphate 30 mmol/ Sodium Chloride 260 ml @ 42 mls/hr UNSCH PRN IV SEE LABEL COMMENTS; Start 08/06/17 at 20:15; Stop 08/15/17 at 15:45; Status DC Potassium Bicarb/ Potassium Chloride (K-Lyte Cl Eff) 50 meq UNSCH PRN PO For Potassium 3.3 - 3.5 mEq/L; Start 08/06/17 at 20:15; Stop 08/15/17 at 15:44; Status DC Potassium Chloride 100 ml @ 50 mls/hr Q2H PRN IV For Potassium 3.3 - 3.5 mEq/L ; Start 08/06/17 at 20:15; Stop 08/15/17 at 15:45; Status DC Pravastatin Sodium (Pravachol) 80 mg HS PO Last administered on 08/16/17at 19:41 ; Start 08/06/17 at 21:00 Quetiapine Fumarate (SEROquel) 400 mg HS PO Last administered on 08/16/17at 19:41 ; Start 08/08/17 at 21:00 Senna/Docusate Sodium (Brooke-Colace) 1 tab BID PO Last administered on 08/17/17at 07:58; Start 08/06/17 at 09:00 Sennosides (Senokot) 17.2 mg Q12H PRN PO Moderate constipation Last administered on 08/09/17at 08:30; Start 08/06/17 at 01:30 Sodium Chloride (NS Flush) 2 ml BID IV FLUSH Last administered on 08/16/17at 19: 43; Start 08/06/17 at 09:00 Sodium Phosphate 30 mmol/Sodium Chloride 250 ml @ 42 mls/hr UNSCH PRN IV For Phosphorus < 2.5 mg/dL; Start 08/06/17 at 20:15; Stop 08/15/17 at 15:45; Status DC Thiamine HCl (Vitamin B1) 100 mg DAILY PO Last administered on 08/17/17at 07:59; Start 08/10/17 at 09:00 Thiamine HCl 100 mg/Sodium Chloride 101 ml @ 100 mls/hr Q24H IV Last administered on 08/08/17at 11:51; Start 08/06/17 at 13:00; Stop 08/09/17 at 12:59 ; Status DC A/P Assessment and Plan Agitated delirium appears consistent with alcohol/benzo withdrawal Bipolar disorder h/o dementia History of polysubstance abuse Continue CIWA protocol Haldol 2 mg IM q4 hours prn. CT brain unremarkable Ammonia level normal at 29 on 08/05 Urine drug screen positive for cannabinoids. Alcohol less than 3 Thiamine/multivitamin/folate acid supplementation evaluated by psych. Altered mental status is improving. At the moment though he is intermittently altered. continue seroquel- ativan and haldol as needed. Coronary artery disease Prior CABG Hypertension Hyperlipidemia Continue Lopressor 25mg Q12. Continue with lisinopril 5 mg p.o. daily due to hypertension. Pravastatin 80 mg po qhs AST elevation On PO diet. Liver ultrasound 08/10 nothing acute. Hepatitis C antibody positive f/u as outpatient. consulted PT. Discharge Planning case management for dc planning. still on restraints. Anand Bell MD Aug 17, 2017 10:56
[2017-08-17 12:00] VITALS: BP 115/85; PULSE 78; RESP 18; TEMP 97.8; O2SAT 96
[2017-08-17] MEDS: HALOPERIDOL LACTATE 5 MG/ML AMP IM PRN (13:03)
[2017-08-17] MEDS: LORazepam 2 MG/ML VIAL IV PUSH PRN ×2 (15:36→17:38)
[2017-08-17 16:00] VITALS: BP 135/86; PULSE 88; RESP 19; TEMP 98; O2SAT 96
[2017-08-17 20:29] VITALS: BP 130/75; PULSE 93; RESP 18; TEMP 98.5; O2SAT 96
[2017-08-17] MEDS: PRAVASTATIN SOD 80 MG TAB PO SCH (22:57)
[2017-08-17] MEDS: hydrOXYzine HCL 50 MG TAB PO SCH (22:58)
[2017-08-17] MEDS: QUEtiapine FUMARATE 200 MG TAB PO SCH (22:58)
[2017-08-18 00:35] VITALS: BP 128/79; PULSE 97; RESP 18; TEMP 98.6; O2SAT 94
[2017-08-18 04:14] VITALS: PULSE 79
[2017-08-18] MEDS: ENOXAPARIN SODIUM 40 MG/0.4 ML SYRINGE SQ SCH (04:14)
[2017-08-18 05:23] VITALS: BP 114/87; PULSE 76; RESP 18; TEMP 98.2; O2SAT 96
[2017-08-18] MEDS: THIAMINE HCL 100 MG TAB PO SCH (09:00)
[2017-08-18] MEDS: SODIUM CHLORIDE 0.9% FLUSH 10 ML FLUSH IV FLUSH SCH ×2 (09:00→22:47)
[2017-08-18] MEDS: HALOPERIDOL LACTATE 5 MG/ML AMP IM PRN ×2 (09:15→13:48)
[2017-08-18] MEDS: LORazepam 2 MG/ML VIAL IV PUSH PRN (09:16)
[2017-08-18] MEDS: BACLOFEN 10 MG TAB PO SCH ×4 (10:45→22:48)
[2017-08-18] MEDS: MULTIVITAMIN TAB PO SCH (10:45)
[2017-08-18] MEDS: busPIRone HCL 10 MG TAB PO SCH ×3 (10:45→18:00)
[2017-08-18] MEDS: FAMOTIDINE 20 MG TAB PO SCH ×2 (10:46→22:47)
[2017-08-18] MEDS: FOLIC ACID 1 MG TAB PO SCH (10:46)
[2017-08-18] MEDS: LISINOPRIL 5 MG TAB PO SCH (10:46)
[2017-08-18] MEDS: METOPROLOL TARTRATE 25 MG TAB PO SCH ×2 (10:46→22:47)
[2017-08-18] MEDS: DOCUSATE SODIUM 50 MG/SENNA 8.6 MG TAB PO SCH ×2 (10:46→22:47)
--- NOTE | 2017-08-18 10:50 | HHI.PR ---
Subjective Remarks in no acute distress. denies pain. calm but still on restraints. Objective Vitals Vital Signs Date Time Temp Pulse Resp B/P (MAP) Pulse Ox O2 Delivery O2 Flow Rate FiO2 08/18/17 05:23 98.2 76 18 114/87 (96) 96 08/18/17 04:14 79 08/18/17 00:35 98.6 97 18 128/79 (95) 94 08/17/17 20:29 98.5 93 18 130/75 (93) 96 08/17/17 16:00 98.0 88 19 135/86 (102) 96 08/17/17 12:00 97.8 78 18 115/85 (95) 96 I/O 08/17/17 08/17/17 08/17/17 08/18/17 08/18/17 08/18/17 07:00 15:00 23:00 07:00 15:00 23:00 Intake Total 240 ml Balance 240 ml Intake Oral 240 ml # Voids 2 3 2 # Bowel Movements 0 Result Diagram: 08/14/17 0612 08/14/17 0612 Imaging Last Impressions Liver Ultrasound 08/10/17 0000 Signed Impressions: Service Date/Time: Thursday, August 10, 2017 08:55 - CONCLUSION: No acute disease. Abran Shell MD Head CT 08/06/172212 Signed Impressions: Service Date/Time: Sunday, August 06, 2017 23:55 - CONCLUSION: 1. No acute hemorrhage, mass or infarction. 2. Remote right parietal infarct. Javy Tolbert MD Chest X-Ray 08/05/172212 Signed Impressions: Service Date/Time: Saturday, August 05, 2017 22:27 - CONCLUSION: No acute disease Abran Mendoza MD Objective Remarks GENERAL: This is a well-nourished, well-developed patient, in no apparent distress. CARDIOVASCULAR: Regular rate and regular rhythm without murmurs, gallops, or rubs. RESPIRATORY: Clear to auscultation. Breath sounds equal bilaterally. No wheezes , rales, or rhonchi. GASTROINTESTINAL: Abdomen soft, non-tender, nondistended. Normal, active bowel sounds MUSCULOSKELETAL: Extremities without clubbing, cyanosis, or edema. NEURO: awake,alert and oriented to person and place. Medications and IVs Inpatient Medications Acetaminophen (Tylenol) 650 mg Q4H PRN PO TEMP > 100.4; Start 08/06/17 at 01:30 Atenolol (Tenormin) 25 mg DAILY PO ; Start 08/06/17 at 09:00; Stop 08/10/17 at 17:35; Status DC Baclofen (Lioresal) 10 mg QID PO Last administered on 08/18/17at 10:45; Start at 18:00 Bisacodyl (Dulcolax Supp) 10 mg DAILY PRN RECTAL SEVERE CONSITIPATION; Start at 01:30 Buspirone HCl (Buspar) 20 mg TID PO Last administered on 08/18/17 10:45; Start 08/08/17 at 18:00 Chlorhexidine Gluconate (Chlorhexidine 2% Cloth) 3 pack UNSCH PRN TOPICAL HYGIENIC CARE; Start 08/06/17 at 20:30; Stop 08/11/17 at 20:18; Status DC Clonidine (Catapres) 0.1 mg Q6H PRN PO SEE LABEL COMMENTS Last administered on 08/10/17at 16:54; Start 08/06/17 at 13:00 Dexmedetomidine HCl 200 mcg/ Sodium Chloride 52 ml @ 3.79 mls/hr TITRATE PRN IV SEDATION Last administered on 08/08/17at 06:35; Start 08/06/17 at 20:00; Stop 08/10/17 at 17:29; Status DC Dextrose (D50w (Vial) Inj) 50 ml UNSCH PRN IV PUSH HYPOGLYCEMIA-SEE COMMENTS; Start 08/06/17 at 13:30 Dextrose/Sodium Chloride 1,000 ml @ 84 mls/hr [id number] IV Last administered on 08/10/17at 10:17; Start 08/09/17 at 09:00; Stop 08/10/17 at 17:29; Status DC Enoxaparin Sodium (Lovenox Inj) 40 mg Q24H SQ Last administered on 08/18/17at 04: 14; Start 08/07/17 at 04:00 Famotidine (Pepcid Inj) 20 mg Q12H IV PUSH Last administered on 08/07/17at 08:51 ; Start 08/06/17 at 21:00; Stop 08/07/17 at 10:18; Status DC Famotidine (Pepcid) 20 mg BID PO Last administered on 08/18/17 10:46; Start at 21:00 Flumazenil (Romazicon Inj) 0.2 mg Q1M PRN IV PUSH SEE LABEL COMMENTS; Start at 11:45 Folic Acid (Folate) 1 mg DAILY PO Last administered on 08/18/17at 10:46; Start at 09:00 Glucagon (Glucagon Inj) 1 mg UNSCH PRN OTHER HYPOGLYCEMIA-SEE COMMENTS; Start 08/06/17 at 13:30 Haloperidol Lactate (Haldol Inj) 2 mg Q4H PRN IM AGITATION Last administered on 08/18/17 09:15; Start 08/11/17 at 16:15 Hydralazine HCl (Apresoline Inj) 10 mg Q4H PRN IV PUSH SBP >165; Start at 17:45 Hydroxyzine Pamoate (Vistaril) 50 mg HS PO Last administered on 08/09/17at 19:56 ; Start 08/08/17 at 21:00; Stop 08/10/17 at 15:01; Status DC Hydroxyzine HCl (Atarax) 50 mg HS PO Last administered on 08/17/17at 22:58; Start 08/10/17 at 21:00 Lactated Ringer's 1,000 ml @ 125 mls/hr Q8H IV Last administered on 08/09/17at 04:03; Start 08/06/17 at 21:00; Stop 08/09/17 at 08:58; Status DC Lactulose (Lactulose Liq) 30 ml DAILY PRN PO SEVERE CONSITIPATION Last administered on 08/10/17at 07:46; Start 08/06/17 at 01:30 Lisinopril (Prinivil) 5 mg DAILY PO Last administered on 08/18/17 10:46; Start 08/10/17 at 17:30 Lorazepam (Ativan Inj) 2 mg Q15M PRN IV PUSH CIWA > 20 Last administered on at 17:49; Start 08/06/17 at 01:30 Lorazepam (Ativan) 2 mg Q2H PRN PO CIWA 11-14 Last administered on 08/15/17at 16: 01; Start 08/06/17 at 01:30 Magnesium Hydroxide (Milk Of Magnnica Liq) 30 ml Q12H PRN PO Mild constipation Last administered on 08/09/17at 08:30; Start 08/06/17 at 01:30 Magnesium Oxide (Mag-Ox) 800 mg UNSCH PRN PO For Magnesium 1.2 - 1.6 mg/dL; Start 08/06/17 at 20:15; Stop 08/15/17 at 15:45; Status DC Magnesium Sulfate 2 gm/Sodium Chloride 100 ml @ 50 mls/hr UNSCH PRN IV For Magnesium 1.2 - 1.6 mg/dL; Start 08/06/17 at 20:15; Stop 08/15/17 at 15:45; Status DC Magnesium Sulfate 4 gm/Sodium Chloride 100 ml @ 50 mls/hr UNSCH PRN IV For Magnesium 0.9 - 1.1 mg/dL; Start 08/06/17 at 20:15; Stop 08/15/17 at 15:45; Status DC Metoprolol Tartrate (Lopressor Inj) 2.5 mg Q6H IV PUSH Last administered on at 01:51; Start 08/06/17 at 21:00; Stop 08/09/17 at 09:07; Status DC Metoprolol Tartrate (Lopressor) 25 mg Q12HR PO Last administered on 08/18/17 10 :46; Start 08/09/17 at 09:30 Miscellaneous Information Patient in critical care unit? Ass... Q361D .XX Last administered on 08/06/17at 20:30; Start 08/06/17 at 20:30 Multivitamins (Theragran) 1 tab DAILY PO Last administered on 08/18/17 10:45; Start 08/11/17 at 09:00 Multivitamins 10 ml/Folic Acid 1 mg/Sodium Chloride 510.2 ml @ 125 mls/hr Q24H IV Last administered on 08/10/17at 11:52; Start 08/06/17 at 13:00; Stop at 17:35; Status DC Naloxone HCl (Narcan Inj) 0.4 mg UNSCH PRN IV PUSH SEE LABEL COMMENTS; Start at 01:30 Ondansetron HCl (Zofran Inj) 4 mg Q6H PRN IVP NAUSEA OR VOMITING; Start at 01:30 Pneumococcal Polyvalent Vaccine (Pneumovax-23 Inj) 25 mcg ONCE ONCE IM ; Start 08/07/17 at 10:00; Stop 08/07/17 at 10:01; Status DC Potassium Phosphate (K-Phos) 2,000 mg UNSCH PRN PO/TUBE SEE LABEL COMMENTS; Start 08/06/17 at 20:15; Stop 08/15/17 at 15:45; Status DC Potassium Phosphate 30 mmol/ Sodium Chloride 260 ml @ 42 mls/hr UNSCH PRN IV SEE LABEL COMMENTS; Start 08/06/17 at 20:15; Stop 08/15/17 at 15:45; Status DC Potassium Bicarb/ Potassium Chloride (K-Lyte Cl Eff) 50 meq UNSCH PRN PO For Potassium 3.3 - 3.5 mEq/L; Start 08/06/17 at 20:15; Stop 08/15/17 at 15:44; Status DC Potassium Chloride 100 ml @ 50 mls/hr Q2H PRN IV For Potassium 3.3 - 3.5 mEq/L ; Start 08/06/17 at 20:15; Stop 08/15/17 at 15:45; Status DC Pravastatin Sodium (Pravachol) 80 mg HS PO Last administered on 08/17/17at 22:57 ; Start 08/06/17 at 21:00 Quetiapine Fumarate (SEROquel) 400 mg HS PO Last administered on 08/17/17at 22:58 ; Start 08/08/17 at 21:00 Senna/Docusate Sodium (Brooke-Colace) 1 tab BID PO Last administered on 08/18/17at 10:46; Start 08/06/17 at 09:00 Sennosides (Senokot) 17.2 mg Q12H PRN PO Moderate constipation Last administered on 08/09/17at 08:30; Start 08/06/17 at 01:30 Sodium Chloride (NS Flush) 2 ml BID IV FLUSH Last administered on 08/17/17at 22: 59; Start 08/06/17 at 09:00 Sodium Phosphate 30 mmol/Sodium Chloride 250 ml @ 42 mls/hr UNSCH PRN IV For Phosphorus < 2.5 mg/dL; Start 08/06/17 at 20:15; Stop 08/15/17 at 15:45; Status DC Thiamine HCl (Vitamin B1) 100 mg DAILY PO Last administered on 08/18/17at 09:00; Start 08/10/17 at 09:00 Thiamine HCl 100 mg/Sodium Chloride 101 ml @ 100 mls/hr Q24H IV Last administered on 08/08/17at 11:51; Start 08/06/17 at 13:00; Stop 08/09/17 at 12:59 ; Status DC A/P Assessment and Plan Agitated delirium appears consistent with alcohol/benzo withdrawal Bipolar disorder h/o dementia History of polysubstance abuse Continue CIWA protocol continue Haldol prn. CT brain unremarkable Ammonia level normal at 29 on 08/05 Urine drug screen positive for cannabinoids. Alcohol less than 3 Thiamine/multivitamin/folate acid supplementation evaluated by psych. Altered mental status is improving. At the moment though he is intermittently altered. continue seroquel- ativan and haldol as needed. Coronary artery disease Prior CABG Hypertension Hyperlipidemia Continue Lopressor 25mg Q12. Continue with lisinopril 5 mg p.o. daily due to hypertension. Pravastatin 80 mg po qhs AST elevation On PO diet. Liver ultrasound 08/10 nothing acute. Hepatitis C antibody positive f/u as outpatient. consulted PT. Discharge Planning dc to SNF - when off the restraints. Anand Bell MD Aug 18, 2017 10:50
[2017-08-18 12:00] VITALS: BP 124/77; PULSE 87; RESP 19; TEMP 97.7; O2SAT 96
[2017-08-18 16:00] VITALS: BP 156/68; PULSE 91; RESP 19; TEMP 98.3; O2SAT 100
[2017-08-18 20:04] VITALS: BP 120/71; PULSE 78; RESP 18; TEMP 98.5; O2SAT 95
[2017-08-18] MEDS: PRAVASTATIN SOD 80 MG TAB PO SCH (22:46)
[2017-08-18] MEDS: hydrOXYzine HCL 50 MG TAB PO SCH (22:47)
[2017-08-18] MEDS: QUEtiapine FUMARATE 200 MG TAB PO SCH (22:48)
[2017-08-19 00:34] VITALS: BP 131/73; PULSE 91; RESP 18; TEMP 98.5; O2SAT 96
[2017-08-19] MEDS: ENOXAPARIN SODIUM 40 MG/0.4 ML SYRINGE SQ SCH (04:14)
[2017-08-19 05:12] VITALS: BP 109/65; PULSE 79; RESP 18; TEMP 97.6; O2SAT 95
[2017-08-19 07:38] VITALS: BP 109/75; PULSE 86; RESP 20; TEMP 97.4; O2SAT 92
[2017-08-19] MEDS: busPIRone HCL 10 MG TAB PO SCH (08:49)
[2017-08-19] MEDS: HALOPERIDOL LACTATE 5 MG/ML AMP IM PRN (08:56)
[2017-08-19] MEDS: FOLIC ACID 1 MG TAB PO SCH (09:00)
[2017-08-19] MEDS: THIAMINE HCL 100 MG TAB PO SCH (09:00)
[2017-08-19] MEDS: FAMOTIDINE 20 MG TAB PO SCH ×2 (09:00→22:04)
[2017-08-19] MEDS: SODIUM CHLORIDE 0.9% FLUSH 10 ML FLUSH IV FLUSH SCH ×2 (09:00→22:05)
[2017-08-19] MEDS: DOCUSATE SODIUM 50 MG/SENNA 8.6 MG TAB PO SCH ×2 (09:00→22:05)
[2017-08-19] MEDS: METOPROLOL TARTRATE 25 MG TAB PO SCH ×2 (09:00→22:04)
[2017-08-19] MEDS: BACLOFEN 10 MG TAB PO SCH ×4 (09:00→22:04)
[2017-08-19] MEDS: LISINOPRIL 5 MG TAB PO SCH (09:00)
[2017-08-19] MEDS: MULTIVITAMIN TAB PO SCH (09:00)
[2017-08-19] MEDS: LORazepam 2 MG/ML VIAL IV PUSH PRN (09:07)
--- NOTE | 2017-08-19 10:36 | HHI.PR ---
Subjective Remarks in no acute distress. but still confused. still on restraints. d/w the RN. Objective Vitals Vital Signs Date Time Temp Pulse Resp B/P (MAP) Pulse Ox O2 Delivery O2 Flow Rate FiO2 08/19/17 07:38 97.4 86 20 109/75 (86) 92 08/19/17 05:12 97.6 79 18 109/65 (80) 95 08/19/17 00:34 98.5 91 18 131/73 (92) 96 08/18/17 20:04 98.5 78 18 120/71 (87) 95 08/18/17 16:00 98.3 91 19 156/68 (97) 100 08/18/17 12:00 97.7 87 19 124/77 (93) 96 I/O 08/18/17 08/18/17 08/18/17 08/19/17 08/19/17 08/19/17 07:00 15:00 23:00 07:00 15:00 23:00 Intake Total 240 ml Balance 240 ml Intake Oral 240 ml # Voids 2 2 # Bowel Movements 0 Imaging Last Impressions Liver Ultrasound 08/10/17 0000 Signed Impressions: Service Date/Time: Thursday, August 10, 2017 08:55 - CONCLUSION: No acute disease. Abran Shell MD Head CT 08/06/172212 Signed Impressions: Service Date/Time: Sunday, August 06, 2017 23:55 - CONCLUSION: 1. No acute hemorrhage, mass or infarction. 2. Remote right parietal infarct. Javy Tolbert MD Chest X-Ray 08/05/172212 Signed Impressions: Service Date/Time: Saturday, August 05, 2017 22:27 - CONCLUSION: No acute disease Abran Mendoza MD Objective Remarks GENERAL: This is a well-nourished, well-developed patient, in no apparent distress. CARDIOVASCULAR: Regular rate and regular rhythm without murmurs, gallops, or rubs. RESPIRATORY: Clear to auscultation. Breath sounds equal bilaterally. No wheezes , rales, or rhonchi. GASTROINTESTINAL: Abdomen soft, non-tender, nondistended. Normal, active bowel sounds MUSCULOSKELETAL: Extremities without clubbing, cyanosis, or edema. NEURO: awake,alert and oriented to person and place. Medications and IVs Inpatient Medications Acetaminophen (Tylenol) 650 mg Q4H PRN PO TEMP > 100.4; Start 08/06/17 at 01:30 Atenolol (Tenormin) 25 mg DAILY PO ; Start 08/06/17 at 09:00; Stop 08/10/17 at 17:35; Status DC Baclofen (Lioresal) 10 mg QID PO Last administered on 08/18/17at 22:48; Start at 18:00 Bisacodyl (Dulcolax Supp) 10 mg DAILY PRN RECTAL SEVERE CONSITIPATION; Start at 01:30 Buspirone HCl (Buspar) 20 mg TID PO Last administered on 08/19/17at 08:49; Start 08/08/17 at 18:00 Chlorhexidine Gluconate (Chlorhexidine 2% Cloth) 3 pack UNSCH PRN TOPICAL HYGIENIC CARE; Start 08/06/17 at 20:30; Stop 08/11/17 at 20:18; Status DC Clonidine (Catapres) 0.1 mg Q6H PRN PO SEE LABEL COMMENTS Last administered on 08/10/17at 16:54; Start 08/06/17 at 13:00 Dexmedetomidine HCl 200 mcg/ Sodium Chloride 52 ml @ 3.79 mls/hr TITRATE PRN IV SEDATION Last administered on 08/08/17at 06:35; Start 08/06/17 at 20:00; Stop 08/10/17 at 17:29; Status DC Dextrose (D50w (Vial) Inj) 50 ml UNSCH PRN IV PUSH HYPOGLYCEMIA-SEE COMMENTS; Start 08/06/17 at 13:30 Dextrose/Sodium Chloride 1,000 ml @ 84 mls/hr [id number] IV Last administered on 08/10/17at 10:17; Start 08/09/17 at 09:00; Stop 08/10/17 at 17:29; Status DC Enoxaparin Sodium (Lovenox Inj) 40 mg Q24H SQ Last administered on 08/19/17at 04: 14; Start 08/07/17 at 04:00 Famotidine (Pepcid Inj) 20 mg Q12H IV PUSH Last administered on 08/07/17at 08:51 ; Start 08/06/17 at 21:00; Stop 08/07/17 at 10:18; Status DC Famotidine (Pepcid) 20 mg BID PO Last administered on 08/18/17 22:47; Start at 21:00 Flumazenil (Romazicon Inj) 0.2 mg Q1M PRN IV PUSH SEE LABEL COMMENTS; Start at 11:45 Folic Acid (Folate) 1 mg DAILY PO Last administered on 08/18/17at 10:46; Start at 09:00 Glucagon (Glucagon Inj) 1 mg UNSCH PRN OTHER HYPOGLYCEMIA-SEE COMMENTS; Start 08/06/17 at 13:30 Haloperidol Lactate (Haldol Inj) 2 mg Q4H PRN IM AGITATION Last administered on 08/19/17 08:56; Start 08/11/17 at 16:15 Hydralazine HCl (Apresoline Inj) 10 mg Q4H PRN IV PUSH SBP >165; Start at 17:45 Hydroxyzine Pamoate (Vistaril) 50 mg HS PO Last administered on 08/09/17at 19:56 ; Start 08/08/17 at 21:00; Stop 08/10/17 at 15:01; Status DC Hydroxyzine HCl (Atarax) 50 mg HS PO Last administered on 08/18/17 22:47; Start 08/10/17 at 21:00 Lactated Ringer's 1,000 ml @ 125 mls/hr Q8H IV Last administered on 08/09/17at 04:03; Start 08/06/17 at 21:00; Stop 08/09/17 at 08:58; Status DC Lactulose (Lactulose Liq) 30 ml DAILY PRN PO SEVERE CONSITIPATION Last administered on 08/10/17at 07:46; Start 08/06/17 at 01:30 Lisinopril (Prinivil) 5 mg DAILY PO Last administered on 08/18/17 10:46; Start 08/10/17 at 17:30 Lorazepam (Ativan Inj) 2 mg Q15M PRN IV PUSH CIWA > 20 Last administered on 08/19 09:07; Start 08/06/17 at 01:30 Lorazepam (Ativan) 2 mg Q2H PRN PO CIWA 11-14 Last administered on 08/15/17at 16: 01; Start 08/06/17 at 01:30 Magnesium Hydroxide (Milk Of Magnnica Liq) 30 ml Q12H PRN PO Mild constipation Last administered on 08/09/17at 08:30; Start 08/06/17 at 01:30 Magnesium Oxide (Mag-Ox) 800 mg UNSCH PRN PO For Magnesium 1.2 - 1.6 mg/dL; Start 08/06/17 at 20:15; Stop 08/15/17 at 15:45; Status DC Magnesium Sulfate 2 gm/Sodium Chloride 100 ml @ 50 mls/hr UNSCH PRN IV For Magnesium 1.2 - 1.6 mg/dL; Start 08/06/17 at 20:15; Stop 08/15/17 at 15:45; Status DC Magnesium Sulfate 4 gm/Sodium Chloride 100 ml @ 50 mls/hr UNSCH PRN IV For Magnesium 0.9 - 1.1 mg/dL; Start 08/06/17 at 20:15; Stop 08/15/17 at 15:45; Status DC Metoprolol Tartrate (Lopressor Inj) 2.5 mg Q6H IV PUSH Last administered on at 01:51; Start 08/06/17 at 21:00; Stop 08/09/17 at 09:07; Status DC Metoprolol Tartrate (Lopressor) 25 mg Q12HR PO Last administered on 08/18/17at 22 :47; Start 08/09/17 at 09:30 Miscellaneous Information Patient in critical care unit? Ass... Q361D .XX Last administered on 08/06/17at 20:30; Start 08/06/17 at 20:30 Multivitamins (Theragran) 1 tab DAILY PO Last administered on 08/18/17at 10:45; Start 08/11/17 at 09:00 Multivitamins 10 ml/Folic Acid 1 mg/Sodium Chloride 510.2 ml @ 125 mls/hr Q24H IV Last administered on 08/10/17at 11:52; Start 08/06/17 at 13:00; Stop at 17:35; Status DC Naloxone HCl (Narcan Inj) 0.4 mg UNSCH PRN IV PUSH SEE LABEL COMMENTS; Start at 01:30 Ondansetron HCl (Zofran Inj) 4 mg Q6H PRN IVP NAUSEA OR VOMITING; Start at 01:30 Pneumococcal Polyvalent Vaccine (Pneumovax-23 Inj) 25 mcg ONCE ONCE IM ; Start 08/07/17 at 10:00; Stop 08/07/17 at 10:01; Status DC Potassium Phosphate (K-Phos) 2,000 mg UNSCH PRN PO/TUBE SEE LABEL COMMENTS; Start 08/06/17 at 20:15; Stop 08/15/17 at 15:45; Status DC Potassium Phosphate 30 mmol/ Sodium Chloride 260 ml @ 42 mls/hr UNSCH PRN IV SEE LABEL COMMENTS; Start 08/06/17 at 20:15; Stop 08/15/17 at 15:45; Status DC Potassium Bicarb/ Potassium Chloride (K-Lyte Cl Eff) 50 meq UNSCH PRN PO For Potassium 3.3 - 3.5 mEq/L; Start 08/06/17 at 20:15; Stop 08/15/17 at 15:44; Status DC Potassium Chloride 100 ml @ 50 mls/hr Q2H PRN IV For Potassium 3.3 - 3.5 mEq/L ; Start 08/06/17 at 20:15; Stop 08/15/17 at 15:45; Status DC Pravastatin Sodium (Pravachol) 80 mg HS PO Last administered on 08/18/17at 22:46 ; Start 08/06/17 at 21:00 Quetiapine Fumarate (SEROquel) 400 mg HS PO Last administered on 08/18/17at 22:48 ; Start 08/08/17 at 21:00 Senna/Docusate Sodium (Brooke-Colace) 1 tab BID PO Last administered on 08/18/17at 22:47; Start 08/06/17 at 09:00 Sennosides (Senokot) 17.2 mg Q12H PRN PO Moderate constipation Last administered on 08/09/17at 08:30; Start 08/06/17 at 01:30 Sodium Chloride (NS Flush) 2 ml BID IV FLUSH Last administered on 08/19/17at 09: 00; Start 08/06/17 at 09:00 Sodium Phosphate 30 mmol/Sodium Chloride 250 ml @ 42 mls/hr UNSCH PRN IV For Phosphorus < 2.5 mg/dL; Start 08/06/17 at 20:15; Stop 08/15/17 at 15:45; Status DC Thiamine HCl (Vitamin B1) 100 mg DAILY PO Last administered on 08/18/17at 09:00; Start 08/10/17 at 09:00 Thiamine HCl 100 mg/Sodium Chloride 101 ml @ 100 mls/hr Q24H IV Last administered on 08/08/17at 11:51; Start 08/06/17 at 13:00; Stop 08/09/17 at 12:59 ; Status DC A/P Assessment and Plan Agitated delirium appears consistent with alcohol/benzo withdrawal Bipolar disorder h/o dementia History of polysubstance abuse still confused and on restraints. Continue CIWA protocol continue Seroquel continue Haldol prn. CT brain unremarkable Ammonia level normal at 29 on 08/05 Urine drug screen positive for cannabinoids. Alcohol less than 3 Thiamine/multivitamin/folate acid supplementation evaluated by psych. Coronary artery disease Prior CABG Hypertension Hyperlipidemia Continue Lopressor, lisinopril . continue Pravastatin. AST elevation On PO diet. Liver ultrasound 08/10 nothing acute. Hepatitis C antibody positive f/u as outpatient. consulted PT. Discharge Planning dc to SNF - when off the restraints. Anand Bell MD Aug 19, 2017 10:36
[2017-08-19 11:39] VITALS: BP 113/76; PULSE 76; RESP 20; TEMP 97.5; O2SAT 99
--- NOTE | 2017-08-19 13:40 | HHI.PYPN ---
Subjective Remarks I have seen and examined this patient for psychiatric reevaluation. Psychotic evaluation the patient is restrained in 4 points, poorly cooperative, he seems to be very upset, internally preoccupied, verbally hostile and disorganized. Patient has a prominent incoherent speech, visible fluctuation of consciousness loosening of associations. As per nursing charge the patient has been combative , verbally hostile, had to be medicated several times in order to calm him down. Review of Systems Except as stated in HPI: all other systems reviewed are Neg Mental Status Examination Appearance: Disheveled Consciousness: Obtunded, Clouded Speech: Incoherent Fund of Knowledge: Inadequate Mood: Oppositional Affect: Irritable, Labile Thought Process & Associations: Loose associations Thought Content: Depersonalization Hallucination Type: None Suicidal Ideation: No Suicidal Plan: No Suicidal Intention: No Homicidal Ideation: No Homicidal Plan: No Insight: Poor Judgment: Poor Results Vitals/IOs Vital Signs Date Time Temp Pulse Resp B/P (MAP) Pulse Ox O2 Delivery O2 Flow Rate FiO2 08/19/17 11:39 97.5 76 20 113/76 (88) 99 08/15/17 07:28 21 Assessment & Plan Problem List: (1) Delirium due to another medical condition ICD Codes: F05 - Delirium due to known physiological condition Assessment & Plan: The patient presents with delirium related with alcohol/ benzodiazepine withdrawal. Will discontinue hydroxyzine, since anticholinergic medication can actually worsen delirium, at the same time will discontinue BuSpar. We will decrease Seroquel to 300 mg at bedtime to avoid oversedation Please, treat the agitation/aggressive behavior with Haldol 2 mg IM every 8 hours PRN recent behavior agitation Objective/subjective withdrawal with CIWA. At this moment is unclear for me if current presentation is primarily related with delirium or a major psychiatric illness decompensation colossally possible. Continue medical treatment as needed. Patient might benefit of psychiatric admission if symptoms persist beyond medical clearance. (2) Alcohol withdrawal ICD Codes: F10.239 - Alcohol dependence with withdrawal, unspecified Assessment & Plan Estimated LOS: days Justification for Cont. Inpt. Undetermined, but patient may need psychiatric admission later. Fam Hilliard MD Aug 19, 2017 13:40
[2017-08-19 15:46] VITALS: BP 128/88; PULSE 94; RESP 20; TEMP 97.6; O2SAT 100
[2017-08-19 21:50] VITALS: BP 122/89; PULSE 101; RESP 19; TEMP 98.8; O2SAT 96
[2017-08-19] MEDS: LORazepam 2 MG TAB PO PRN (22:04)
[2017-08-19] MEDS: PRAVASTATIN SOD 80 MG TAB PO SCH (22:04)
[2017-08-19] MEDS: QUEtiapine FUMARATE 300 MG TAB PO SCH (22:13)
[2017-08-20] MEDS: LORazepam 2 MG/ML VIAL IV PUSH PRN (04:13)
[2017-08-20] MEDS: ENOXAPARIN SODIUM 40 MG/0.4 ML SYRINGE SQ SCH (04:13)
[2017-08-20 05:45] VITALS: BP 131/71; PULSE 80; RESP 20; TEMP 98.1; O2SAT 95
[2017-08-20 08:04] VITALS: BP 123/77; PULSE 76; RESP 18; TEMP 97.9; O2SAT 96
[2017-08-20] MEDS: SODIUM CHLORIDE 0.9% FLUSH 10 ML FLUSH IV FLUSH SCH ×2 (09:00→22:35)
[2017-08-20] MEDS: BACLOFEN 10 MG TAB PO SCH ×4 (09:11→22:35)
[2017-08-20] MEDS: LISINOPRIL 5 MG TAB PO SCH (09:11)
[2017-08-20] MEDS: FAMOTIDINE 20 MG TAB PO SCH ×2 (09:11→22:35)
[2017-08-20] MEDS: FOLIC ACID 1 MG TAB PO SCH (09:11)
[2017-08-20] MEDS: MULTIVITAMIN TAB PO SCH (09:11)
[2017-08-20] MEDS: METOPROLOL TARTRATE 25 MG TAB PO SCH ×2 (09:12→22:35)
[2017-08-20] MEDS: THIAMINE HCL 100 MG TAB PO SCH (09:12)
[2017-08-20] MEDS: DOCUSATE SODIUM 50 MG/SENNA 8.6 MG TAB PO SCH ×2 (09:12→22:35)
--- NOTE | 2017-08-20 11:18 | HHI.PR ---
Subjective Remarks in no distress. still on restraints. looks pain free. no fever. Objective Vitals Vital Signs Date Time Temp Pulse Resp B/P (MAP) Pulse Ox O2 Delivery O2 Flow Rate FiO2 08/20/17 08:04 97.9 76 18 123/77 (92) 96 08/20/17 05:45 98.1 80 20 131/71 (91) 95 08/19/17 21:50 98.8 101 19 122/89 (100) 96 08/19/17 15:46 97.6 94 20 128/88 (101) 100 08/19/17 11:39 97.5 76 20 113/76 (88) 99 I/O 08/19/17 08/19/17 08/19/17 08/20/17 08/20/17 08/20/17 07:00 15:00 23:00 07:00 15:00 23:00 Intake Total 1160 ml Balance 1160 ml Intake Oral 1160 ml # Voids 1 2 # Bowel Movements 0 Imaging Last Impressions Liver Ultrasound 08/10/17 0000 Signed Impressions: Service Date/Time: Thursday, August 10, 2017 08:55 - CONCLUSION: No acute disease. Abran Shell MD Head CT 08/06/172212 Signed Impressions: Service Date/Time: Sunday, August 06, 2017 23:55 - CONCLUSION: 1. No acute hemorrhage, mass or infarction. 2. Remote right parietal infarct. Javy Tolbert MD Chest X-Ray 08/05/172212 Signed Impressions: Service Date/Time: Saturday, August 05, 2017 22:27 - CONCLUSION: No acute disease Abran Mendoza MD Objective Remarks GENERAL: This is a well-nourished, well-developed patient, in no apparent distress. CARDIOVASCULAR: Regular rate and regular rhythm without murmurs, gallops, or rubs. RESPIRATORY: Clear to auscultation. Breath sounds equal bilaterally. No wheezes , rales, or rhonchi. GASTROINTESTINAL: Abdomen soft, non-tender, nondistended. Normal, active bowel sounds MUSCULOSKELETAL: Extremities without clubbing, cyanosis, or edema. NEURO: awake,alert and oriented to person and place. Medications and IVs Inpatient Medications Acetaminophen (Tylenol) 650 mg Q4H PRN PO TEMP > 100.4; Start 08/06/17 at 01:30 Atenolol (Tenormin) 25 mg DAILY PO ; Start 08/06/17 at 09:00; Stop 08/10/17 at 17:35; Status DC Baclofen (Lioresal) 10 mg QID PO Last administered on 08/20/17at 09:11; Start at 18:00 Bisacodyl (Dulcolax Supp) 10 mg DAILY PRN RECTAL SEVERE CONSITIPATION; Start at 01:30 Buspirone HCl (Buspar) 20 mg TID PO Last administered on 08/19/17at 08:49; Start 08/08/17 at 18:00; Stop 08/19/17 at 13:33; Status DC Chlorhexidine Gluconate (Chlorhexidine 2% Cloth) 3 pack UNSCH PRN TOPICAL HYGIENIC CARE; Start 08/06/17 at 20:30; Stop 08/11/17 at 20:18; Status DC Clonidine (Catapres) 0.1 mg Q6H PRN PO SEE LABEL COMMENTS Last administered on 08/10/17at 16:54; Start 08/06/17 at 13:00 Dexmedetomidine HCl 200 mcg/ Sodium Chloride 52 ml @ 3.79 mls/hr TITRATE PRN IV SEDATION Last administered on 08/08/17at 06:35; Start 08/06/17 at 20:00; Stop 08/10/17 at 17:29; Status DC Dextrose (D50w (Vial) Inj) 50 ml UNSCH PRN IV PUSH HYPOGLYCEMIA-SEE COMMENTS; Start 08/06/17 at 13:30 Dextrose/Sodium Chloride 1,000 ml @ 84 mls/hr [id number] IV Last administered on 08/10/17at 10:17; Start 08/09/17 at 09:00; Stop 08/10/17 at 17:29; Status DC Enoxaparin Sodium (Lovenox Inj) 40 mg Q24H SQ Last administered on 08/20/17at 04: 13; Start 08/07/17 at 04:00 Famotidine (Pepcid Inj) 20 mg Q12H IV PUSH Last administered on 08/07/17at 08:51 ; Start 08/06/17 at 21:00; Stop 08/07/17 at 10:18; Status DC Famotidine (Pepcid) 20 mg BID PO Last administered on 08/20/17 09:11; Start at 21:00 Flumazenil (Romazicon Inj) 0.2 mg Q1M PRN IV PUSH SEE LABEL COMMENTS; Start at 11:45 Folic Acid (Folate) 1 mg DAILY PO Last administered on 08/20/17 09:11; Start at 09:00 Glucagon (Glucagon Inj) 1 mg UNSCH PRN OTHER HYPOGLYCEMIA-SEE COMMENTS; Start 08/06/17 at 13:30 Haloperidol Lactate (Haldol Inj) 2 mg Q4H PRN IM AGITATION Last administered on 08/19/17 08:56; Start 08/11/17 at 16:15 Hydralazine HCl (Apresoline Inj) 10 mg Q4H PRN IV PUSH SBP >165; Start at 17:45 Hydroxyzine Pamoate (Vistaril) 50 mg HS PO Last administered on 08/09/17at 19:56 ; Start 08/08/17 at 21:00; Stop 08/10/17 at 15:01; Status DC Hydroxyzine HCl (Atarax) 50 mg HS PO Last administered on 08/18/17 22:47; Start 08/10/17 at 21:00; Stop 08/19/17 at 13:33; Status DC Lactated Ringer's 1,000 ml @ 125 mls/hr Q8H IV Last administered on 08/09/17at 04:03; Start 08/06/17 at 21:00; Stop 08/09/17 at 08:58; Status DC Lactulose (Lactulose Liq) 30 ml DAILY PRN PO SEVERE CONSITIPATION Last administered on 08/10/17at 07:46; Start 08/06/17 at 01:30 Lisinopril (Prinivil) 5 mg DAILY PO Last administered on 08/20/17 09:11; Start 08/10/17 at 17:30 Lorazepam (Ativan Inj) 2 mg Q15M PRN IV PUSH CIWA > 20 Last administered on 08/19 09:07; Start 08/06/17 at 01:30 Lorazepam (Ativan) 2 mg Q2H PRN PO CIWA 11-14 Last administered on 08/19/17 22: 04; Start 08/06/17 at 01:30 Magnesium Hydroxide (Milk Of Aminah Liq) 30 ml Q12H PRN PO Mild constipation Last administered on 08/09/17at 08:30; Start 08/06/17 at 01:30 Magnesium Oxide (Mag-Ox) 800 mg UNSCH PRN PO For Magnesium 1.2 - 1.6 mg/dL; Start 08/06/17 at 20:15; Stop 08/15/17 at 15:45; Status DC Magnesium Sulfate 2 gm/Sodium Chloride 100 ml @ 50 mls/hr UNSCH PRN IV For Magnesium 1.2 - 1.6 mg/dL; Start 08/06/17 at 20:15; Stop 08/15/17 at 15:45; Status DC Magnesium Sulfate 4 gm/Sodium Chloride 100 ml @ 50 mls/hr UNSCH PRN IV For Magnesium 0.9 - 1.1 mg/dL; Start 08/06/17 at 20:15; Stop 08/15/17 at 15:45; Status DC Metoprolol Tartrate (Lopressor Inj) 2.5 mg Q6H IV PUSH Last administered on 01:51; Start 08/06/17 at 21:00; Stop 08/09/17 at 09:07; Status DC Metoprolol Tartrate (Lopressor) 25 mg Q12HR PO Last administered on 08/20/17 09 :12; Start 08/09/17 at 09:30 Miscellaneous Information Patient in critical care unit? Ass... Q361D .XX Last administered on 08/06/17at 20:30; Start 08/06/17 at 20:30 Multivitamins (Theragran) 1 tab DAILY PO Last administered on 08/20/17 09:11; Start 08/11/17 at 09:00 Multivitamins 10 ml/Folic Acid 1 mg/Sodium Chloride 510.2 ml @ 125 mls/hr Q24H IV Last administered on 08/10/17at 11:52; Start 08/06/17 at 13:00; Stop at 17:35; Status DC Naloxone HCl (Narcan Inj) 0.4 mg UNSCH PRN IV PUSH SEE LABEL COMMENTS; Start at 01:30 Ondansetron HCl (Zofran Inj) 4 mg Q6H PRN IVP NAUSEA OR VOMITING; Start at 01:30 Pneumococcal Polyvalent Vaccine (Pneumovax-23 Inj) 25 mcg ONCE ONCE IM ; Start 08/07/17 at 10:00; Stop 08/07/17 at 10:01; Status DC Potassium Phosphate (K-Phos) 2,000 mg UNSCH PRN PO/TUBE SEE LABEL COMMENTS; Start 08/06/17 at 20:15; Stop 08/15/17 at 15:45; Status DC Potassium Phosphate 30 mmol/ Sodium Chloride 260 ml @ 42 mls/hr UNSCH PRN IV SEE LABEL COMMENTS; Start 08/06/17 at 20:15; Stop 08/15/17 at 15:45; Status DC Potassium Bicarb/ Potassium Chloride (K-Lyte Cl Eff) 50 meq UNSCH PRN PO For Potassium 3.3 - 3.5 mEq/L; Start 08/06/17 at 20:15; Stop 08/15/17 at 15:44; Status DC Potassium Chloride 100 ml @ 50 mls/hr Q2H PRN IV For Potassium 3.3 - 3.5 mEq/L ; Start 08/06/17 at 20:15; Stop 08/15/17 at 15:45; Status DC Pravastatin Sodium (Pravachol) 80 mg HS PO Last administered on 08/19/17at 22:04 ; Start 08/06/17 at 21:00 Quetiapine Fumarate (SEROquel) 300 mg HS PO Last administered on 08/19/17at 22:13 ; Start 08/19/17 at 21:00 Senna/Docusate Sodium (Brooke-Colace) 1 tab BID PO Last administered on 08/20/17at 09:12; Start 08/06/17 at 09:00 Sennosides (Senokot) 17.2 mg Q12H PRN PO Moderate constipation Last administered on 08/09/17at 08:30; Start 08/06/17 at 01:30 Sodium Chloride (NS Flush) 2 ml BID IV FLUSH Last administered on 08/20/17at 09: 00; Start 08/06/17 at 09:00 Sodium Phosphate 30 mmol/Sodium Chloride 250 ml @ 42 mls/hr UNSCH PRN IV For Phosphorus < 2.5 mg/dL; Start 08/06/17 at 20:15; Stop 08/15/17 at 15:45; Status DC Thiamine HCl (Vitamin B1) 100 mg DAILY PO Last administered on 08/20/17at 09:12; Start 08/10/17 at 09:00 Thiamine HCl 100 mg/Sodium Chloride 101 ml @ 100 mls/hr Q24H IV Last administered on 08/08/17at 11:51; Start 08/06/17 at 13:00; Stop 08/09/17 at 12:59 ; Status DC A/P Assessment and Plan Agitated delirium appears consistent with alcohol/benzo withdrawal Bipolar disorder h/o dementia History of polysubstance abuse still confused and on restraints. Continue CIWA protocol continue Seroquel continue Haldol prn. CT brain unremarkable Ammonia level normal at 29 on 08/05 Urine drug screen positive for cannabinoids. Alcohol less than 3 Thiamine/multivitamin/folate acid supplementation psych f/u appreciated. Coronary artery disease Prior CABG Hypertension Hyperlipidemia Continue Lopressor, lisinopril . continue Pravastatin. AST elevation On PO diet. Liver ultrasound 08/10 nothing acute. Hepatitis C antibody positive f/u as outpatient. consulted PT. Discharge Planning dc planning to SNF vs psych. Anand Bell MD Aug 20, 2017 11:18
[2017-08-20 11:43] VITALS: BP 101/72; PULSE 82; RESP 20; TEMP 98; O2SAT 94
[2017-08-20 16:10] VITALS: BP 113/64; PULSE 83; RESP 20; TEMP 98.5; O2SAT 96
[2017-08-20 22:15] VITALS: BP 140/80; PULSE 110; RESP 21; TEMP 98.9; O2SAT 96
[2017-08-20] MEDS: QUEtiapine FUMARATE 300 MG TAB PO SCH (22:34)
[2017-08-20] MEDS: PRAVASTATIN SOD 80 MG TAB PO SCH (22:35)
[2017-08-21] MEDS: ENOXAPARIN SODIUM 40 MG/0.4 ML SYRINGE SQ SCH (04:21)
[2017-08-21 04:40] VITALS: BP 122/78; PULSE 67; RESP 17; TEMP 97.7; O2SAT 97
[2017-08-21] MEDS: BACLOFEN 10 MG TAB PO SCH ×3 (08:05→17:39)
[2017-08-21] MEDS: MULTIVITAMIN TAB PO SCH (08:05)
[2017-08-21] MEDS: DOCUSATE SODIUM 50 MG/SENNA 8.6 MG TAB PO SCH (08:05)
[2017-08-21] MEDS: LISINOPRIL 5 MG TAB PO SCH (08:06)
[2017-08-21] MEDS: METOPROLOL TARTRATE 25 MG TAB PO SCH (08:06)
[2017-08-21] MEDS: THIAMINE HCL 100 MG TAB PO SCH (08:06)
[2017-08-21] MEDS: FAMOTIDINE 20 MG TAB PO SCH (08:06)
[2017-08-21] MEDS: FOLIC ACID 1 MG TAB PO SCH (08:06)
[2017-08-21] MEDS: SODIUM CHLORIDE 0.9% FLUSH 10 ML FLUSH IV FLUSH SCH (08:06)
[2017-08-21 08:18] VITALS: BP 104/53; PULSE 79; RESP 18; TEMP 97.3; O2SAT 96
--- NOTE | 2017-08-21 10:32 | HHI.PR ---
Subjective Remarks in no acute distress. calm but agitated at times. still on four point restraints. d/w the RN and no other acute issues over night. Objective Vitals Vital Signs Date Time Temp Pulse Resp B/P (MAP) Pulse Ox O2 Delivery O2 Flow Rate FiO2 08/21/17 08:18 97.3 79 18 104/53 (70) 96 08/21/17 04:40 97.7 67 17 122/78 (93) 97 08/20/17 22:15 98.9 110 21 140/80 (100) 96 08/20/17 16:10 98.5 83 20 113/64 (80) 96 08/20/17 11:43 98.0 82 20 101/72 (82) 94 I/O 08/20/17 08/20/17 08/20/17 08/21/17 08/21/17 08/21/17 07:00 15:00 23:00 07:00 15:00 23:00 Intake Total 1500 ml 700 ml Balance 1500 ml 700 ml Intake Oral 1500 ml 700 ml # Voids 2 5 2 1 # Bowel Movements 0 0 1 Imaging Last Impressions Liver Ultrasound 08/10/17 0000 Signed Impressions: Service Date/Time: Thursday, August 10, 2017 08:55 - CONCLUSION: No acute disease. Abran Shlel MD Head CT 08/06/172212 Signed Impressions: Service Date/Time: Sunday, August 06, 2017 23:55 - CONCLUSION: 1. No acute hemorrhage, mass or infarction. 2. Remote right parietal infarct. Javy Tolbert MD Chest X-Ray 08/05/172212 Signed Impressions: Service Date/Time: Saturday, August 05, 2017 22:27 - CONCLUSION: No acute disease Abran Mendoza MD Objective Remarks GENERAL: This is a well-nourished, well-developed patient, in no apparent distress. CARDIOVASCULAR: Regular rate and regular rhythm without murmurs, gallops, or rubs. RESPIRATORY: Clear to auscultation. Breath sounds equal bilaterally. No wheezes , rales, or rhonchi. GASTROINTESTINAL: Abdomen soft, non-tender, nondistended. Normal, active bowel sounds MUSCULOSKELETAL: Extremities without clubbing, cyanosis, or edema. NEURO: awake,alert and oriented to person and place. Procedures none Medications and IVs Inpatient Medications Acetaminophen (Tylenol) 650 mg Q4H PRN PO TEMP > 100.4; Start 08/06/17 at 01:30 Atenolol (Tenormin) 25 mg DAILY PO ; Start 08/06/17 at 09:00; Stop 08/10/17 at 17:35; Status DC Baclofen (Lioresal) 10 mg QID PO Last administered on 08/21/17at 08:05; Start at 18:00 Bisacodyl (Dulcolax Supp) 10 mg DAILY PRN RECTAL SEVERE CONSITIPATION; Start at 01:30 Buspirone HCl (Buspar) 20 mg TID PO Last administered on 08/19/17at 08:49; Start 08/08/17 at 18:00; Stop 08/19/17 at 13:33; Status DC Chlorhexidine Gluconate (Chlorhexidine 2% Cloth) 3 pack UNSCH PRN TOPICAL HYGIENIC CARE; Start 08/06/17 at 20:30; Stop 08/11/17 at 20:18; Status DC Clonidine (Catapres) 0.1 mg Q6H PRN PO SEE LABEL COMMENTS Last administered on 08/10/17at 16:54; Start 08/06/17 at 13:00 Dexmedetomidine HCl 200 mcg/ Sodium Chloride 52 ml @ 3.79 mls/hr TITRATE PRN IV SEDATION Last administered on 08/08/17at 06:35; Start 08/06/17 at 20:00; Stop 08/10/17 at 17:29; Status DC Dextrose (D50w (Vial) Inj) 50 ml UNSCH PRN IV PUSH HYPOGLYCEMIA-SEE COMMENTS; Start 08/06/17 at 13:30 Dextrose/Sodium Chloride 1,000 ml @ 84 mls/hr [id number] IV Last administered on 08/10/17at 10:17; Start 08/09/17 at 09:00; Stop 08/10/17 at 17:29; Status DC Enoxaparin Sodium (Lovenox Inj) 40 mg Q24H SQ Last administered on 08/21/17at 04: 21; Start 08/07/17 at 04:00 Famotidine (Pepcid Inj) 20 mg Q12H IV PUSH Last administered on 08/07/17at 08:51 ; Start 08/06/17 at 21:00; Stop 08/07/17 at 10:18; Status DC Famotidine (Pepcid) 20 mg BID PO Last administered on 08/21/17at 08:06; Start at 21:00 Flumazenil (Romazicon Inj) 0.2 mg Q1M PRN IV PUSH SEE LABEL COMMENTS; Start at 11:45 Folic Acid (Folate) 1 mg DAILY PO Last administered on 08/21/17at 08:06; Start at 09:00 Glucagon (Glucagon Inj) 1 mg UNSCH PRN OTHER HYPOGLYCEMIA-SEE COMMENTS; Start 08/06/17 at 13:30 Haloperidol Lactate (Haldol Inj) 2 mg Q4H PRN IM AGITATION Last administered on 08/19/17 08:56; Start 08/11/17 at 16:15 Hydralazine HCl (Apresoline Inj) 10 mg Q4H PRN IV PUSH SBP >165; Start at 17:45 Hydroxyzine Pamoate (Vistaril) 50 mg HS PO Last administered on 08/09/17at 19:56 ; Start 08/08/17 at 21:00; Stop 08/10/17 at 15:01; Status DC Hydroxyzine HCl (Atarax) 50 mg HS PO Last administered on 08/18/17at 22:47; Start 08/10/17 at 21:00; Stop 08/19/17 at 13:33; Status DC Lactated Ringer's 1,000 ml @ 125 mls/hr Q8H IV Last administered on 08/09/17at 04:03; Start 08/06/17 at 21:00; Stop 08/09/17 at 08:58; Status DC Lactulose (Lactulose Liq) 30 ml DAILY PRN PO SEVERE CONSITIPATION Last administered on 08/10/17at 07:46; Start 08/06/17 at 01:30 Lisinopril (Prinivil) 5 mg DAILY PO Last administered on 08/21/17at 08:06; Start 08/10/17 at 17:30 Lorazepam (Ativan Inj) 2 mg Q15M PRN IV PUSH CIWA > 20 Last administered on 08/19at 09:07; Start 08/06/17 at 01:30 Lorazepam (Ativan) 2 mg Q2H PRN PO CIWA 11-14 Last administered on 08/19/17at 22: 04; Start 08/06/17 at 01:30 Magnesium Hydroxide (Milk Of Aminah Priest) 30 ml Q12H PRN PO Mild constipation Last administered on 08/09/17at 08:30; Start 08/06/17 at 01:30 Magnesium Oxide (Mag-Ox) 800 mg UNSCH PRN PO For Magnesium 1.2 - 1.6 mg/dL; Start 08/06/17 at 20:15; Stop 08/15/17 at 15:45; Status DC Magnesium Sulfate 2 gm/Sodium Chloride 100 ml @ 50 mls/hr UNSCH PRN IV For Magnesium 1.2 - 1.6 mg/dL; Start 08/06/17 at 20:15; Stop 08/15/17 at 15:45; Status DC Magnesium Sulfate 4 gm/Sodium Chloride 100 ml @ 50 mls/hr UNSCH PRN IV For Magnesium 0.9 - 1.1 mg/dL; Start 08/06/17 at 20:15; Stop 08/15/17 at 15:45; Status DC Metoprolol Tartrate (Lopressor Inj) 2.5 mg Q6H IV PUSH Last administered on at 01:51; Start 08/06/17 at 21:00; Stop 08/09/17 at 09:07; Status DC Metoprolol Tartrate (Lopressor) 25 mg Q12HR PO Last administered on 08/21/17at 08 :06; Start 08/09/17 at 09:30 Miscellaneous Information Patient in critical care unit? Ass... [id number] Last administered on 08/06/17at 20:30; Start 08/06/17 at 20:30 Multivitamins (Theragran) 1 tab DAILY PO Last administered on 08/21/17at 08:05; Start 08/11/17 at 09:00 Multivitamins 10 ml/Folic Acid 1 mg/Sodium Chloride 510.2 ml @ 125 mls/hr Q24H IV Last administered on 08/10/17at 11:52; Start 08/06/17 at 13:00; Stop at 17:35; Status DC Naloxone HCl (Narcan Inj) 0.4 mg UNSCH PRN IV PUSH SEE LABEL COMMENTS; Start at 01:30 Ondansetron HCl (Zofran Inj) 4 mg Q6H PRN IVP NAUSEA OR VOMITING; Start at 01:30 Pneumococcal Polyvalent Vaccine (Pneumovax-23 Inj) 25 mcg ONCE ONCE IM ; Start 08/07/17 at 10:00; Stop 08/07/17 at 10:01; Status DC Potassium Phosphate (K-Phos) 2,000 mg UNSCH PRN PO/TUBE SEE LABEL COMMENTS; Start 08/06/17 at 20:15; Stop 08/15/17 at 15:45; Status DC Potassium Phosphate 30 mmol/ Sodium Chloride 260 ml @ 42 mls/hr UNSCH PRN IV SEE LABEL COMMENTS; Start 08/06/17 at 20:15; Stop 08/15/17 at 15:45; Status DC Potassium Bicarb/ Potassium Chloride (K-Lyte Cl Eff) 50 meq UNSCH PRN PO For Potassium 3.3 - 3.5 mEq/L; Start 08/06/17 at 20:15; Stop 08/15/17 at 15:44; Status DC Potassium Chloride 100 ml @ 50 mls/hr Q2H PRN IV For Potassium 3.3 - 3.5 mEq/L ; Start 08/06/17 at 20:15; Stop 08/15/17 at 15:45; Status DC Pravastatin Sodium (Pravachol) 80 mg HS PO Last administered on 08/20/17at 22:35 ; Start 08/06/17 at 21:00 Quetiapine Fumarate (SEROquel) 300 mg HS PO Last administered on 08/20/17at 22:34 ; Start 08/19/17 at 21:00 Senna/Docusate Sodium (Brooke-Colace) 1 tab BID PO Last administered on 08/21/17at 08:05; Start 08/06/17 at 09:00 Sennosides (Senokot) 17.2 mg Q12H PRN PO Moderate constipation Last administered on 08/09/17at 08:30; Start 08/06/17 at 01:30 Sodium Chloride (NS Flush) 2 ml BID IV FLUSH Last administered on 08/21/17at 08: 06; Start 08/06/17 at 09:00 Sodium Phosphate 30 mmol/Sodium Chloride 250 ml @ 42 mls/hr UNSCH PRN IV For Phosphorus < 2.5 mg/dL; Start 08/06/17 at 20:15; Stop 08/15/17 at 15:45; Status DC Thiamine HCl (Vitamin B1) 100 mg DAILY PO Last administered on 08/21/17at 08:06; Start 08/10/17 at 09:00 Thiamine HCl 100 mg/Sodium Chloride 101 ml @ 100 mls/hr Q24H IV Last administered on 08/08/17at 11:51; Start 08/06/17 at 13:00; Stop 08/09/17 at 12:59 ; Status DC A/P Assessment and Plan Agitated delirium appears consistent with alcohol/benzo withdrawal Bipolar disorder h/o dementia History of polysubstance abuse still confused and on restraints. Continue CIWA protocol continue Seroquel continue Haldol prn. CT brain unremarkable Urine drug screen positive for cannabinoids. Alcohol less than 3 Thiamine/multivitamin/folate acid supplementation psych f/u appreciated. Coronary artery disease Prior CABG Hypertension Hyperlipidemia Continue Lopressor, lisinopril . continue Pravastatin. AST elevation On PO diet. Liver ultrasound 08/10 nothing acute. Hepatitis C antibody positive f/u as outpatient. consulted PT. Discharge Planning dc to med-psych. see med list. f/u; pcp and psych. d/w the RN and . time spent 35 min. Anand Bell MD Aug 21, 2017 10:32
[2017-08-21] MEDS ORDERED: LISI-519 PO (10:36)
[2017-08-21] MEDS ORDERED: FOLI1TAB6 PO (10:36)
[2017-08-21] MEDS ORDERED: HALO5P IM (10:36)
[2017-08-21] MEDS ORDERED: ENOX40P SQ (10:36)
[2017-08-21] MEDS ORDERED: METO25TA3 PO (10:36)
[2017-08-21] MEDS ORDERED: QUET1TAB10 PO (10:36)
[2017-08-21] MEDS ORDERED: THIA100 PO (10:36)
[2017-08-21] MEDS ORDERED: THERTAB15 PO (10:36)
[2017-08-21 12:16] VITALS: BP 126/79; PULSE 65; RESP 16; TEMP 97.3; O2SAT 98
--- NOTE | 2017-08-21 12:51 | HHI.PYPN ---
Subjective Remarks Patient was seen today for psychiatric reevaluation. He continues to be restrained in 4 points. However, the patient seems to be more alert and more engageable in a conversation. The patient reports that he feels okay, and he says that the reason he is here is because he has been waiting for his daughter and his dentist to come and help him to go out. Patient seems to be a little bit disorganized and delusional, also has some paranoia stating that he is not very sure if people "here in this place was not hurt me". He denies suicidal and homicidal ideation, he denies visual and auditory hallucinations. The patient is partially oriented to time and place, he knows that he is at [place] , he knows 2018, he knows what was the president. As per conversation with denies the patient has been at time agitated, combative and verbally aggressive. He has been compliant with medications, no significant side effects so far Review of Systems Psychiatric: COMPLAINS OF: Confusion, Delusions Except as stated in HPI: all other systems reviewed are Neg Mental Status Examination Appearance: Disheveled Consciousness: Alert, Obtunded, Clouded Orientation: Person, Place Speech: Unremarkable, Incoherent Fund of Knowledge: Inadequate Mood: Oppositional Affect: Irritable, Labile Thought Process & Associations: Loose associations Thought Content: Depersonalization Hallucination Type: None Delusion Type: Paranoid Suicidal Ideation: No Suicidal Plan: No Suicidal Intention: No Homicidal Ideation: No Homicidal Plan: No Insight: Poor Judgment: Poor Results Vitals/IOs Vital Signs Date Time Temp Pulse Resp B/P (MAP) Pulse Ox O2 Delivery O2 Flow Rate FiO2 08/21/17 12:16 97.3 65 16 126/79 (95) 98 Intake and Output 08/21/17 08/21/17 08/22/17 08:00 16:00 00:00 Intake Total 700 ml Balance 700 ml Assessment & Plan Problem List: (1) Delirium due to another medical condition ICD Codes: F05 - Delirium due to known physiological condition (2) Alcohol withdrawal ICD Codes: F10.239 - Alcohol dependence with withdrawal, unspecified (3) Unspecified psychosis ICD Codes: F29 - Unspecified psychosis not due to a substance or known physiological condition Assessment & Plan: Patient continues to show symptoms of psychosis. Continue current psychotropic regimen. Patient will be admitted in psychiatry for stabilization and safety. Assessment & Plan Estimated LOS: days Justification for Cont. Inpt. Patient is acutely psychotic. Fam Hilliard MD Aug 21, 2017 12:51
--- NOTE | 2017-08-21 13:15 | HHI.DS ---
Discharge Summary Admission Date Aug 06, 2017 at 00:35 Discharge Date: Aug 21, 2017 Admitting Diagnosis AMS, Rhabdomyolysis (1) Alcohol withdrawal ICD Code: F10.239 - Alcohol dependence with withdrawal, unspecified Diagnosis: Principal Procedures none Brief History - From Admission The patient is a 56-year-old male with past medical history of CABG, hypertension, hepatitis C, dementia, bipolar disorder, seizure disorder, history of CVA who presents to [facility] ED with altered mental status. Per emergency department documentation, the patient was residing at home when he became combative. EMS found the patient to be so agitated that they found it difficult to assess him. The patient was given 2 mg of Versed and round the emergency department. On arrival to the emergency department he remained agitated and was given Ativan. At the time of our interview, the patient is sleeping. He is arousable to voice however does not answer questions. He has a known history of bipolar disorder and dementia and reportedly smokes marijuana on a daily basis. Imaging Last Impressions Liver Ultrasound 08/10/17 0000 Signed Impressions: Service Date/Time: Thursday, August 10, 2017 08:55 - CONCLUSION: No acute disease. Abran Shell MD Head CT 08/06/172212 Signed Impressions: Service Date/Time: Sunday, August 06, 2017 23:55 - CONCLUSION: 1. No acute hemorrhage, mass or infarction. 2. Remote right parietal infarct. Javy Tolbert MD Chest X-Ray 08/05/172212 Signed Impressions: Service Date/Time: Saturday, August 05, 2017 22:27 - CONCLUSION: No acute disease Abran Mendoza MD PE at Discharge GENERAL: This is a well-nourished, well-developed patient, in no apparent distress. CARDIOVASCULAR: Regular rate and regular rhythm without murmurs, gallops, or rubs. RESPIRATORY: Clear to auscultation. Breath sounds equal bilaterally. No wheezes , rales, or rhonchi. GASTROINTESTINAL: Abdomen soft, non-tender, nondistended. Normal, active bowel sounds MUSCULOSKELETAL: Extremities without clubbing, cyanosis, or edema. NEURO: awake,alert and oriented to person and place. Hospital Course Agitated delirium appears consistent with alcohol/benzo withdrawal Bipolar disorder h/o dementia History of polysubstance abuse still confused and on restraints. Continue CIWA protocol continue Seroquel continue Haldol prn. CT brain unremarkable Urine drug screen positive for cannabinoids. Alcohol less than 3 Thiamine/multivitamin/folate acid supplementation psych f/u appreciated. Coronary artery disease Prior CABG Hypertension Hyperlipidemia Continue Lopressor, lisinopril . continue Pravastatin. AST elevation On PO diet. Liver ultrasound 08/10 nothing acute. Hepatitis C antibody positive f/u as outpatient. consulted PT. Pt Condition on Discharge: Fair Discharge Disposition: Disc to Psych Care Fac Discharge Time: > 30 minutes Discharge Instructions DIET: Follow Instructions for: Heart Healthy Diet Activities you can perform: Regular-No Restrictions Anand Bell MD Aug 21, 2017 13:15
[2017-08-21 16:04] VITALS: BP 95/61; PULSE 76; RESP 18; TEMP 98.2; O2SAT 99
[2017-08-21] MEDS: HALOPERIDOL LACTATE 5 MG/ML AMP IM PRN (17:03)
== END 2017-08-21 20:04 | DRG 897 ==
LOC: NEPE 21:37 → NEDA 08-06 00:35 → N05B 08-06 02:38 → HIMW 08-06 18:50 → N05A 08-15 17:16
PROVIDERS: ADMIT Internal Medicine; ATTEND Internal Medicine
DX: F10.231 Alcohol dependence with withdrawal delirium (principal); M62.82 Rhabdomyolysis; G30.9 Alzheimer's disease, unspecified; F05 Delirium due to known physiological condition; E11.42 Type 2 diabetes mellitus with diabetic polyneuropathy; F13.231 Sedative, hypnotic or anxiolytic dependence with withdrawal delirium; F02.80 Dementia in other diseases classified elsewhere, unspecified severity, without behavioral disturbance, psychotic disturbance, mood disturbance, and anxiety; F17.210 Nicotine dependence, cigarettes, uncomplicated; I10 Essential (primary) hypertension; F31.9 Bipolar disorder, unspecified; B19.20 Unspecified viral hepatitis C without hepatic coma; I25.10 Atherosclerotic heart disease of native coronary artery without angina pectoris; E78.5 Hyperlipidemia, unspecified; E86.0 Dehydration; K21.9 Gastro-esophageal reflux disease without esophagitis; F12.90 Cannabis use, unspecified, uncomplicated; F41.9 Anxiety disorder, unspecified; F29 Unspecified psychosis not due to a substance or known physiological condition; Z78.1 Physical restraint status; I25.2 Old myocardial infarction; Z95.1 Presence of aortocoronary bypass graft; Z86.73 Personal history of transient ischemic attack (TIA), and cerebral infarction without residual deficits
CPT/HCPCS: 51702; 70450; 71045; 76705; 76937; 80048; 80053; 80307; 81001; 82140; 82550; 82552; 82948; 83690; 83735; 84100; 84443; 84484; 85025; 85027; 85610; 85730; 87641; 93005; 96374; J1630; J1650; J2060; J3411; J3480; J7030; J7040; J7042; J7120; Q0177

== ENCOUNTER 2017-08-21 18:44 | Inpatient (IN) | payer MEDICAID ==
[~2017-08-21] VITALS: Ht 162.6 cm; Wt 64.1 kg
[~2017-08-21 18:44] MED LIST changes: +ENOX40P SQ; +FOLI1TAB6 PO; +HALO5P IM; +LISI-519 PO; -LISI10TA3 PO; +METO25TA3 PO; +QUET1TAB10 PO; +THERTAB15 PO; +THIA100 PO
[2017-08-21 20:05] VITALS: BP 127/59; PULSE 80; RESP 16; TEMP 97.7; O2SAT 96
[2017-08-21] MEDS ORDERED: LORazepam 2 MG/ML VIAL IM PRN ×2 (20:30→22:15)
[2017-08-21] MEDS ORDERED: LORazepam 0.5 MG TAB PO PRN (20:30)
[2017-08-21] MEDS ORDERED: QUEtiapine FUMARATE 300 MG TAB PO SCH (22:00)
[2017-08-21] MEDS: PRAVASTATIN SOD 80 MG TAB PO SCH (22:00)
[2017-08-21] MEDS ORDERED: ALBUTEROL SULFATE 90 MCG/ACT HFA 8 GM INHALER INH PRN (22:00)
[2017-08-21] MEDS ORDERED: MAGNESIUM HYDROXIDE SUSP 30 ML CUP PO PRN (22:00)
[2017-08-21] MEDS: BACLOFEN 10 MG TAB PO SCH (22:00)
[2017-08-21] MEDS ORDERED: ALUMINUM/MAGNESIUM/SIMETH 30 ML CUP PO PRN (22:00)
[2017-08-21] MEDS ORDERED: HALOPERIDOL LACTATE 5 MG/ML AMP IM PRN (22:00)
[2017-08-21] MEDS: METOPROLOL TARTRATE 25 MG TAB PO SCH (22:00)
[2017-08-22 06:15] VITALS: BP 112/71; PULSE 82; RESP 16; TEMP 97.3; O2SAT 95
[2017-08-22] MEDS: METOPROLOL TARTRATE 25 MG TAB PO SCH ×2 (09:18→21:39)
[2017-08-22] MEDS: NICOTINE 21 MG/24 HR PATCH T-DERMAL SCH (09:18)
[2017-08-22] MEDS: LISINOPRIL 5 MG TAB PO SCH (09:18)
[2017-08-22] MEDS: BACLOFEN 10 MG TAB PO SCH ×3 (12:37→21:39)
[2017-08-22] MEDS ORDERED: hydrOXYzine HCL 50 MG TAB PO PRN (15:15)
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
[2017-08-22 18:27] VITALS: BP 110/67; PULSE 77; RESP 18; TEMP 97.7; O2SAT 98
[2017-08-22] MEDS: REMOVE OLD NICODERM (NICOTINE) PATCH T-DERMAL SCH (21:00)
[2017-08-22] MEDS: QUEtiapine FUMARATE 200 MG TAB PO SCH (21:38)
[2017-08-22] MEDS: PRAVASTATIN SOD 80 MG TAB PO SCH (21:39)
[2017-08-23 05:57] VITALS: BP 90/60; PULSE 75; RESP 16; TEMP 97.8; O2SAT 98
[2017-08-23] MEDS: MULTIVITAMIN TAB PO SCH (08:50)
[2017-08-23] MEDS: METOPROLOL TARTRATE 25 MG TAB PO SCH ×2 (08:50→20:30)
[2017-08-23] MEDS: THIAMINE HCL 100 MG TAB PO SCH (08:50)
[2017-08-23] MEDS: BACLOFEN 10 MG TAB PO SCH ×4 (08:50→20:30)
[2017-08-23] MEDS: NICOTINE 21 MG/24 HR PATCH T-DERMAL SCH (08:50)
[2017-08-23] MEDS: PANTOPRAZOLE SOD 20 MG DELAYED RELEASE TAB PO SCH (08:50)
[2017-08-23] MEDS: LISINOPRIL 5 MG TAB PO SCH (08:50)
[2017-08-23] MEDS: FOLIC ACID 1 MG TAB PO SCH (08:51)
--- NOTE | 2017-08-23 09:47 | PD.CONS ---
HPI Service [facility] Hospitalists Consult Requested By Psychiatric services Reason for Consult Medical management Primary Care Physician No Primary Care Physician Diagnoses: History of Present Illness Written by Ligia Aldana, acting as scribe for Dr. Gonzalez on 08/23/17 at 09:41. The patient is a 56-year-old male with past medical history of CABG, hypertension, hepatitis C, dementia, bipolar disorder, seizure disorder, history of CVA who presented to [facility] ED with altered mental status and was admitted for alcohol and benzodiazepine withdrawal. Patient's urine drug screen was positive for cannabis and benzodiazepines. Head CT was unremarkable. Patient was started on thiamine, multivitamins and folic acid supplementation as well as CIWA protocol. He had to be restrained in 4 point restraints secondary to delirium and agitation. He was seen in consultation by psychiatry who recommended inpatient psychiatric admission for ongoing psychosis. Patient has since been admitted to inpatient psychiatry unit and Hospitalist services have been consulted for medical management. Patient seen and examined. Patient denies any acute medical complaints. He denies any fever or chills. Denies any chest pain or shortness of breath. Denies any nausea, vomiting or abdominal pain. Past Family Social History Allergies: Coded Allergies: acetaminophen (Verified Adverse Reaction, Intermediate, pt has hepatitis c told not to take, 08/22/17) Past Medical History CAD s/p CABG Dementia Bipolar disorder Hepatitis C Seizures History of CVA Past Surgical History CABG x 2 Reported Medications Thera Tablet (Multivitamin with Folic Acid) 400 Mcg Tablet 1 Tab PO DAILY 30 Days Gnp Vitamin B-1 (Thiamine HCl) 100 Mg Tab 100 Mg PO DAILY 30 Days Folic Acid 1 Mg Tablet 1 Mg PO DAILY 30 Days Lisinopril 5 Mg Tab 5 Mg PO DAILY 30 Days Metoprolol Tartrate 25 Mg Tab 25 Mg PO Q12HR 30 Days Lovenox Inj (Enoxaparin Sodium) 40 Mg/0.4 Ml Syr 40 Mg SQ Q24H 10 Days Proair Hfa 8.5 GM Inh (Albuterol Sulfate) 90 Mcg/Act Aer 2 Puff INH Q4HR PRN 108 mcg/actuation Omeprazole 20 Mg Tab 20 Mg PO DAILY Simvastatin 40 Mg Tab 40 Mg PO HS Baclofen 10 Mg Tab 10 Mg PO QID Active Ordered Medications Current Medications Medications (Trade) Dose Ordered Sig/Ria Route Start Time Stop Time Status Last Admin (Proair Hfa Inh) 2 puff Q4HR PRN INH 08/21/17 22:00 (Lioresal) 10 mg QID PO 08/21/17 22:00 08/23/17 08:50 (Haldol Inj) 2 mg Q4H PRN IM 08/21/17 22:00 (Prinivil) 5 mg DAILY PO 08/22/17 09:00 08/23/17 08:50 (Lopressor) 25 mg Q12HR PO 08/21/17 22:00 08/23/17 08:50 (Pravachol) 80 mg HS PO 08/21/17 22:00 08/22/17 21:39 (Ativan) 1 mg Q6H PRN PO 08/21/17 22:15 (Ativan Inj) 1 mg Q6H PRN IM 08/21/17 22:15 (Tylenol) 650 mg Q4H PRN PO 08/21/17 22:00 (Milk Of Magnesia Liq) 30 ml DAILY PRN PO 08/21/17 22:00 (Mag-Al Plus Susp Liq) 30 ml Q6H PRN PO 08/21/17 22:00 (Habitrol 21 Mg Patch.24 Hr) 1 patch DAILY T-DERMAL 08/22/17 09:00 08/23/17 08:50 Miscellaneous Information 1 HS T-DERMAL 08/22/17 21:00 (Flu (Quadrivalent) Vaccine Inj) 0.5 ml ONCE ONCE IM 08/23/17 10:00 08/23/17 10:01 (SEROquel) 400 mg HS PO 08/22/17 21:00 08/22/17 21:38 (Atarax) 50 mg Q6H PRN PO 08/22/17 15:15 (Folate) 1 mg DAILY PO 08/23/17 09:00 08/23/17 08:51 (Theragran) 1 tab DAILY PO 08/23/17 09:00 08/23/17 08:50 (Vitamin B1) 100 mg DAILY PO 08/23/17 09:00 08/23/17 08:50 (Protonix) 20 mg DAILY PO 08/23/17 09:00 08/23/17 08:50 Family History Patient states his parents are and he doesn't know any family medical history Social History Patient reports tobacco use of 1/2ppd for 50 years. He denies any alcohol use. He reports smoking marijuana. Physical Exam Vital Signs Vital Signs Date Time Temp Pulse Resp B/P (MAP) Pulse Ox O2 Delivery O2 Flow Rate FiO2 08/23/17 05:57 97.8 75 16 90/60 (70) 98 08/22/17 18:27 97.7 77 18 110/67 (81) 98 Physical Exam GENERAL: This is a well-nourished, well-developed male patient, in no apparent distress. Awake and alert. Appears comfortable. SKIN: No rashes, ecchymoses or lesions. Cool and dry. HEAD: Atraumatic. Normocephalic. No temporal or scalp tenderness. EYES: Pupils equal round and reactive. Extraocular motions intact. No scleral icterus. No injection or drainage. ENT: Nose without bleeding or purulent drainage. Throat without erythema, tonsillar hypertrophy or exudate. Uvula midline. Airway patent. NECK: Trachea midline. No lymphadenopathy. Supple, nontender, no meningeal signs. CARDIOVASCULAR: Regular rate and rhythm without murmurs, gallops, or rubs. RESPIRATORY: Clear to auscultation. Breath sounds equal bilaterally. No wheezes , rales, or rhonchi. GASTROINTESTINAL: Abdomen soft, non-tender, nondistended. No hepato-splenomegaly , or palpable masses. No guarding. MUSCULOSKELETAL: Extremities without clubbing, cyanosis, or edema. No joint tenderness, effusion, or edema noted. No calf tenderness. NEUROLOGICAL: Awake and alert. Cranial nerves II through XII grossly intact. Motor and sensory grossly within normal limits. Five out of 5 muscle strength in all muscle groups. Normal speech. Assessment and Plan Assessment and Plan 56-year-old male with past medical history of CABG, hypertension, hepatitis C, dementia, bipolar disorder, seizure disorder, history of CVA who presented to [facility] ED with altered mental status and was admitted for alcohol and benzodiazepine withdrawal. He has since been admitted to the inpatient psychiatric unit and hospitalist services have been consulted for medical management. Agitated delirium appears consistent with alcohol/benzo withdrawal Bipolar disorder h/o dementia History of polysubstance abuse Urine drug screen positive for cannabinoids and benzodiazepines. Alcohol less than 3 Management per psychiatry Continue CIWA protocol continue Seroquel continue on Thiamine/multivitamin/folate acid supplementation Coronary artery disease Prior CABG Hypertension Hyperlipidemia now hypotensive Patient has no acute cardiac complaints at this time Continue Lopressor with holding parameters, decrease lisinopril dose to 2.5mg daily with holding parameters. Continue to monitor BP. May need to decrease dose of Lopressor. continue Pravastatin. change to heart healthy diet AST elevation trending downward avoid hepatotoxic agents Liver ultrasound 08/10 nothing acute. Hepatitis C antibody positive standard precautions f/u as outpatient. This note was transcribed by PAVAN Nair . I, Dr. Anabel Gonzalez personally performed the history, physical exam, and medical decision making; and confirmed the accuracy of the information in the transcribed note. Authenticated by Dr. Anabel Gonzalez on 08/23/17 at 09:41. Discussed Condition With patient, nursing staff Ligia Aldana Aug 23, 2017 09:47 Anabel Gonzalez MD Aug 23, 2017 10:22
[2017-08-23] MEDS ORDERED: INFLUENZA VIRUS VACCINE (QUADRIVALENT) 0.5 ML SYR IM ONE (10:00)
[2017-08-23] MEDS ORDERED: PILL SPLITTER OTHER PRN (12:45)
[2017-08-23] MEDS ORDERED: SERO400T PO (14:00)
[2017-08-23] MEDS ORDERED: BACL10TA PO (14:00)
[2017-08-23] MEDS ORDERED: Albuterol Hfa Inh INH (14:00)
--- NOTE | 2017-08-23 14:41 | HHI.PYPN ---
Subjective Remarks Patient seen in his room with nurse Parada, chart reviewed, patient compliant medication, patient discussed with nurse. Patient calm showing increased cooperation, showing some mild increased processing. Does acknowledge she has these "blacked out" spells were he does not remember what he does. He continues to minimizes alcohol use. I initially felt patient showed improvement to the point med criteria for discharge. However patient's daughter did arrive interception desk visit. Nurse Karma and I met with patient 's daughter we discussed patient's behavior the daughter give us increased information concerning patient's behavior. He is had increasingly lengthy episodes of blacking out. During the blackout spells becomes quite angry irritable the point of seeing to his daughter "cathy salinas" it appears the daughter is been taking the brunt of being director nurses' registry for her father. She is only 23 years old. Is not working at this time has no other life then caring for her father. It appears her mother with whom she lives has power of continuous drier operator but claims that the full responsibility for the patient is on the daughter shoulders. I suggested the patient consider the reality of that statement. In any event at this time I feel patient does not meet criteria for discharge that he does meet criteria for further observation assessment. I share this with the patient he was somewhat irritable but did acknowledge the increasing length of his blackout spells and his misbehavior during the blackout spells. Review of Systems Except as stated in HPI: all other systems reviewed are Neg Mental Status Examination Appearance: Disheveled (mildly) Consciousness: Alert Orientation: Person, Place (somewhat vague), Date/Time (somewhat vague) Motor Activity: Normal gait Speech: Unremarkable Language: Adequate Fund of Knowledge: Adequate Attention and Concentration: Easily Distracted Memory: Impaired Mood: Other (euthymic to mildly dysphoric) Affect: Other (decreased range and intensity) Thought Process & Associations: Disorganized (mildly) Thought Content: Other (somewhat disorganized) Hallucination Type: None (denies) Delusion Type: Paranoid (mildly) Suicidal Ideation: No Suicidal Plan: No Suicidal Intention: No Homicidal Ideation: No Homicidal Plan: No Homicidal Intention: No Insight: Fair Judgment: Impulsive Results Vitals/IOs Vital Signs Date Time Temp Pulse Resp B/P (MAP) Pulse Ox O2 Delivery O2 Flow Rate FiO2 08/23/17 05:57 97.8 75 16 90/60 (27) 98 Assessment & Plan Problem List: (1) Chronic post-traumatic stress disorder (PTSD) after combat ICD Codes: F43.12 - Post-traumatic stress disorder, chronic (2) Delirium due to another medical condition ICD Codes: F05 - Delirium due to known physiological condition (3) Alcohol withdrawal ICD Codes: F10.239 - Alcohol dependence with withdrawal, unspecified Assessment & Plan Estimated LOS: days patient continues somewhat irritable though improving, after meeting with patient's daughter determined he needs further observation and assessment. We'll continue treatment at this time Justification for Cont. Inpt. At this time patient decompensated placed in a lower level of care Discharge Planning Probable return home with daughter ex- and ex-'s boyfriend Request HC Surrog/Guard Advoc?: No Abran Chiang MD Aug 23, 2017 14:41
[2017-08-23] MEDS: LORazepam 1 MG TAB PO PRN (14:57)
[2017-08-23 18:13] VITALS: BP 110/70; PULSE 76; RESP 17; TEMP 97.9; O2SAT 97
[2017-08-23] MEDS: PRAVASTATIN SOD 80 MG TAB PO SCH (20:30)
[2017-08-23] MEDS: QUEtiapine FUMARATE 200 MG TAB PO SCH (20:30)
[2017-08-23] MEDS: REMOVE OLD NICODERM (NICOTINE) PATCH T-DERMAL SCH (20:31)
[2017-08-24] MEDS: ACETAMINOPHEN 325 MG TAB PO PRN (03:09)
[2017-08-24 06:36] VITALS: BP 101/55; PULSE 80; RESP 19; TEMP 97.4; O2SAT 98
[2017-08-24] MEDS: NICOTINE 21 MG/24 HR PATCH T-DERMAL SCH (09:00)
[2017-08-24] MEDS: METOPROLOL TARTRATE 25 MG TAB PO SCH ×3 (09:52→21:01)
[2017-08-24] MEDS: PANTOPRAZOLE SOD 20 MG DELAYED RELEASE TAB PO SCH (09:52)
[2017-08-24] MEDS: BACLOFEN 10 MG TAB PO SCH ×4 (09:52→21:01)
[2017-08-24] MEDS: MULTIVITAMIN TAB PO SCH (09:54)
[2017-08-24] MEDS: LISINOPRIL 5 MG TAB PO SCH (09:54)
[2017-08-24] MEDS: FOLIC ACID 1 MG TAB PO SCH (09:54)
[2017-08-24] MEDS: THIAMINE HCL 100 MG TAB PO SCH (09:54)
--- NOTE | 2017-08-24 13:44 | HHI.PYPN ---
Subjective Remarks Pt seen and discussed with staff. He has been compliant with medications and care. He is irritable and isolative to his room. He denies SI/HI. He states that he "starts drinking and smoking marijuana" and then doesn't do well. He states that he may be homeless because family isn't certain they can care for him. Mental Status Examination Appearance: Disheveled (mildly) Consciousness: Alert Orientation: Person, Place (somewhat vague), Date/Time (somewhat vague) Motor Activity: Normal gait Speech: Unremarkable Language: Adequate Fund of Knowledge: Adequate Attention and Concentration: Easily Distracted Memory: Impaired Mood: Irritable Affect: Irritable Thought Process & Associations: Disorganized (mildly) Thought Content: Other (somewhat disorganized) Hallucination Type: None (denies) Delusion Type: Paranoid (mildly) Suicidal Ideation: No Suicidal Plan: No Suicidal Intention: No Homicidal Ideation: No Homicidal Plan: No Homicidal Intention: No Insight: Fair Judgment: Impulsive Results Vitals/IOs Vital Signs Date Time Temp Pulse Resp B/P (MAP) Pulse Ox O2 Delivery O2 Flow Rate FiO2 08/24/17 06:36 97.4 80 19 101/55 (70) 98 Assessment & Plan Problem List: (1) Chronic post-traumatic stress disorder (PTSD) after combat ICD Codes: F43.12 - Post-traumatic stress disorder, chronic (2) Delirium due to another medical condition ICD Codes: F05 - Delirium due to known physiological condition (3) Alcohol withdrawal ICD Codes: F10.239 - Alcohol dependence with withdrawal, unspecified Assessment & Plan Continue current tx plan. Estimated LOS: days Justification for Cont. Inpt. risk of decompensation Request HC Surrog/Guard Advoc?: Yessica Murphy MD Aug 24, 2017 13:44
[2017-08-24] MEDS: LORazepam 1 MG TAB PO PRN (14:25)
--- NOTE | 2017-08-24 17:08 | HHI.PR ---
Subjective Remarks Follow-up visit HTN, hep C, history of CAD, dementia. Patient seen and examined today. Complaints of left shoulder pain. Denies any trauma. States that he had right shoulder surgery prior and he thinks that his left shoulder also would be needing some surgery. Complains of difficulty with AROM. Otherwise, denies SOB/ dyspnea. Denies chest pain, palpitations, headaches, dizziness. Denies fevers, chills, n/v/d. Denies dysuria. Objective Vitals Vital Signs Date Time Temp Pulse Resp B/P (MAP) Pulse Ox O2 Delivery O2 Flow Rate FiO2 08/24/17 06:36 97.4 80 19 101/55 (70) 98 08/23/17 18:13 97.9 76 17 110/70 (83) 97 Objective Remarks GENERAL: This is a well-nourished, well-developed patient, in no apparent distress. SKIN: Warm and dry HEENT: Normocephalic. Pupils equal round and reactive. Nose without bleeding. Airway patent. NECK: Trachea midline. CARDIOVASCULAR: Regular rate and rhythm without murmurs, gallops, or rubs. RESPIRATORY: Clear to auscultation. Breath sounds equal bilaterally. No wheezes , rales, or rhonchi. GASTROINTESTINAL: Abdomen soft, non-tender, nondistended. Bowel Sounds normoactive x4. MUSCULOSKELETAL: Extremities without clubbing, cyanosis, or edema. Left upper extremity limited abduction, pain with abduction. NEUROLOGICAL: Awake and alert. Oriented to place, person. Moves all extremities. Normal speech. A/P Problem List: (1) Chronic post-traumatic stress disorder (PTSD) after combat ICD Code: F43.12 - Post-traumatic stress disorder, chronic Assessment and Plan This is a 56-year-old male with past medical history of CABG, hypertension, hepatitis C, dementia, bipolar disorder, seizure disorder, history of CVA who presented to [facility] ED with altered mental status and was admitted for alcohol and benzodiazepine withdrawal. He has since been admitted to the inpatient psychiatric unit and hospitalist services have been consulted for medical management. Agitated delirium appears consistent with alcohol/benzo withdrawal Bipolar disorder h/o dementia History of polysubstance abuse - Urine drug screen positive for cannabinoids and benzodiazepines. Alcohol less than 3 - Management per psychiatry - Continue CIWA protocol - continue Seroquel - Thiamine/multivitamin/folate acid supplementation Coronary artery disease Prior CABG Hypertension Hyperlipidemia - Continue Lopressor with holding parameters, decrease lisinopril dose to 2.5mg daily with holding parameters. Continue to monitor BP. Decrease dose of Lopressor - continue Pravastatin. - Continue heart healthy diet AST elevation - trending downward - avoid hepatotoxic agents - Liver ultrasound 08/10 no acute disease Hepatitis C antibody positive - standard precautions - f/u as outpatient with GI or ID Left shoulder pain, tendinitis possible rotator cuff tendinitis - States he had this problem before on his Right shoulder - Baclofen QID - Warm compresses - OT eval and treat -Refer to Ortho for outpatient intervention DVT prop ambulatory Elizabeth-Paula Subramanian Aug 24, 2017 17:08
[2017-08-24 17:47] VITALS: BP 94/63; PULSE 77; RESP 18; TEMP 97; O2SAT 99
[2017-08-24] MEDS: REMOVE OLD NICODERM (NICOTINE) PATCH T-DERMAL SCH (21:00)
[2017-08-24] MEDS: PRAVASTATIN SOD 80 MG TAB PO SCH (21:01)
[2017-08-24] MEDS: QUEtiapine FUMARATE 200 MG TAB PO SCH (21:01)
[2017-08-25 06:22] VITALS: BP 97/63; PULSE 92; RESP 17; TEMP 97.8; O2SAT 100
[2017-08-25] MEDS: METOPROLOL TARTRATE 25 MG TAB PO SCH ×2 (09:00→20:32)
[2017-08-25] MEDS: LISINOPRIL 5 MG TAB PO SCH (09:00)
[2017-08-25] MEDS: NICOTINE 21 MG/24 HR PATCH T-DERMAL SCH (09:00)
[2017-08-25] MEDS: PANTOPRAZOLE SOD 20 MG DELAYED RELEASE TAB PO SCH (09:51)
[2017-08-25] MEDS: FOLIC ACID 1 MG TAB PO SCH (09:51)
[2017-08-25] MEDS: THIAMINE HCL 100 MG TAB PO SCH (09:51)
[2017-08-25] MEDS: MULTIVITAMIN TAB PO SCH (09:51)
[2017-08-25] MEDS: BACLOFEN 10 MG TAB PO SCH ×2 (09:51→13:40)
--- NOTE | 2017-08-25 12:14 | HHI.PYPN ---
Subjective Remarks Pt seen and discussed with staff. He has been compliant with medication and denies side effects. He has not had any behavioral issues today. He has not been expressing delusional content today. He reports that he was having AH but they have decreased. Mental Status Examination Appearance: Disheveled (mildly) Consciousness: Alert Orientation: Person, Place (somewhat vague), Date/Time (somewhat vague) Motor Activity: Normal gait Speech: Unremarkable Language: Adequate Fund of Knowledge: Adequate Attention and Concentration: Easily Distracted Memory: Impaired Mood: Appropriate Affect: Appropriate Thought Process & Associations: Linear Thought Content: Other (somewhat disorganized) Hallucination Type: Auditory (intermittent) Delusion Type: Paranoid (mildly) Suicidal Ideation: No Suicidal Plan: No Suicidal Intention: No Homicidal Ideation: No Homicidal Plan: No Homicidal Intention: No Insight: Fair Judgment: Impulsive Results Vitals/IOs Vital Signs Date Time Temp Pulse Resp B/P (MAP) Pulse Ox O2 Delivery O2 Flow Rate FiO2 08/25/17 06:22 97.8 92 17 97/63 (74) 100 Assessment & Plan Problem List: (1) Chronic post-traumatic stress 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 Continue current tx plan. Estimated LOS: days Justification for Cont. Inpt. risk of decompensation Request HC Surrog/Guard Advoc?: Yessica Murphy MD Aug 25, 2017 12:14
--- NOTE | 2017-08-25 13:20 | HHI.PR ---
Subjective Remarks Follow-up visit HTN, hep C, history of CAD, dementia. Patient seen and examined sitting up in chair in the day room, appears in no acute distress. Continues to have ongoing left shoulder pain, when asked about quality, consistency, and when pain began. Patient states "asked me simply knew that you have and already asked me". Discussed with patient that I would like to know since this is the first time that I am seeing him to better help him, he is quite and does not go into detail about this. He denies any chest pain, shortness of breath, cough, fevers, chills, nausea, vomiting, diarrhea, headaches or dizziness. Objective Vitals Vital Signs Date Time Temp Pulse Resp B/P (MAP) Pulse Ox O2 Delivery O2 Flow Rate FiO2 08/25/17 06:22 97.8 92 17 97/63 (74) 100 08/24/17 17:47 97.0 77 18 94/63 (73) 99 Objective Remarks GENERAL: This is a well-nourished, well-developed patient, in no apparent distress. SKIN: Warm and dry HEENT: Normocephalic. Pupils equal round and reactive. Nose without bleeding. Airway patent. NECK: Trachea midline. CARDIOVASCULAR: Regular rate and rhythm without murmurs, gallops, or rubs. RESPIRATORY: Clear to auscultation. Breath sounds equal bilaterally. No wheezes , rales, or rhonchi. GASTROINTESTINAL: Abdomen soft, non-tender, nondistended. Bowel Sounds normoactive x4. MUSCULOSKELETAL: Extremities without clubbing, cyanosis, or edema. Left upper extremity limited abduction. NEUROLOGICAL: Awake and alert. Oriented to place, person. Moves all extremities. Normal speech. A/P Problem List: (1) Chronic post-traumatic stress disorder (PTSD) after combat ICD Code: F43.12 - Post-traumatic stress disorder, chronic Assessment and Plan This is a 56-year-old male with past medical history of CABG, hypertension, hepatitis C, dementia, bipolar disorder, seizure disorder, history of CVA who presented to [facility] ED with altered mental status and was admitted for alcohol and benzodiazepine withdrawal. He has since been admitted to the inpatient psychiatric unit and hospitalist services have been consulted for medical management. Agitated delirium appears consistent with alcohol/benzo withdrawal Bipolar disorder h/o dementia History of polysubstance abuse - Urine drug screen positive for cannabinoids and benzodiazepines. Alcohol less than 3 - Management per psychiatry - Continue CIWA protocol - continue Seroquel - Thiamine/multivitamin/folate acid supplementation Coronary artery disease Prior CABG Hypertension Hyperlipidemia - Continue Lopressor with holding parameters, decrease lisinopril dose to 2.5mg daily with holding parameters. Continue to monitor BP. Decrease dose of Lopressor - continue Pravastatin. - Continue heart healthy diet AST elevation - trending downward - avoid hepatotoxic agents - Liver ultrasound 08/10 no acute disease Hepatitis C antibody positive - standard precautions - f/u as outpatient with GI or ID Left shoulder pain, tendinitis possible rotator cuff tendinitis - Hx similar issue on right shoulder - Continue Baclofen QID - Warm compresses - OT eval and treat - Refer to Ortho for outpatient intervention - Try Lidoderm patch DVT prop ambulatory Zack Mcneil Aug 25, 2017 13:20
[2017-08-25] MEDS: ACETAMINOPHEN 325 MG TAB PO PRN (13:40)
[2017-08-25] MEDS ORDERED: PILL SPLITTER OTHER PRN (15:30)
[2017-08-25] MEDS ORDERED: LIDOCAINE HCL 5% PATCH T-DERMAL SCH (16:00)
[2017-08-25] MEDS ORDERED: REMOVE OLD LIDOCAINE PATCH T-DERMAL SCH (16:00)
[2017-08-25] MEDS: BACLOFEN 20 MG TAB PO SCH ×2 (18:20→20:32)
[2017-08-25] MEDS: QUEtiapine FUMARATE 200 MG TAB PO SCH (20:32)
[2017-08-25] MEDS: PRAVASTATIN SOD 80 MG TAB PO SCH (20:32)
[2017-08-25] MEDS: REMOVE OLD NICODERM (NICOTINE) PATCH T-DERMAL SCH (20:32)
[2017-08-26 06:02] VITALS: BP 119/71; PULSE 92; RESP 16; TEMP 97.3; O2SAT 98
[2017-08-26] MEDS: NICOTINE 21 MG/24 HR PATCH T-DERMAL SCH (09:00)
[2017-08-26] MEDS ORDERED: LIDOCAINE HCL 5% PATCH T-DERMAL SCH (09:00)
[2017-08-26] MEDS: PANTOPRAZOLE SOD 20 MG DELAYED RELEASE TAB PO SCH (09:50)
[2017-08-26] MEDS: THIAMINE HCL 100 MG TAB PO SCH (09:50)
[2017-08-26] MEDS: METOPROLOL TARTRATE 25 MG TAB PO SCH (09:50)
[2017-08-26] MEDS: BACLOFEN 20 MG TAB PO SCH ×2 (09:51→12:42)
[2017-08-26] MEDS: FOLIC ACID 1 MG TAB PO SCH (09:52)
[2017-08-26] MEDS: LISINOPRIL 5 MG TAB PO SCH (09:52)
[2017-08-26] MEDS: MULTIVITAMIN TAB PO SCH (09:52)
--- NOTE | 2017-08-26 11:44 | HHI.DS ---
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 He was admitted to the hospital with rhabdomyolysis delirium with altered mental status this is visit [id number]. Patient also seen by Dr. Fam Ryder in psychiatric consultation. Urine toxicology positive for benzodiazepines and marijuana negative for alcohol Patient was discharged from that admission on 08/21/17 and directly admitted to the psychiatric unit. At the present time patient sitting quietly on his bed in his room nurse Karma present throughout the session patient is a short balding blondish white male appears stated age acknowledging memory issues acknowledging use of alcohol on a frequent basis but minimizing it. Acknowledging and is somewhat dragging [place] daily marijuana. He states he was out fishing came back to the trailer where he lives with his ex-, ex-wives boyfriend, and his daughter and their pet rabbit. He states he had a loss of consciousness meds vague memories of the initial stay in the hospital. 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 He states he is [facility] connected, but he does have flashbacks and nightmares and some eversion behavior. He has had past psychiatric hospitalizations related to this. He also acknowledges some multiple substance abuse as a younger man including hallucinogenic's and mushrooms. At the present time patient denies suicidality homicidality voices or visions. Is able contracted to no harm. This time I feel patient still meets criteria for further observation assessment. Though I do feel he has capacity thus I'll lift Rdz act allow her sign voluntary will continue his medication from the med reconciliation increasing his at bedtime Seroquel from 300 mg to 400 mg Tobacco Use In Past 30 Days: 5 or More Cigarettes/Day Alcohol Use: Monthly or Less Hospital Course Patient's hospital course was uneventful, he should compliance with medication from day 1. Is mild irritability and intrusiveness did slow down. Is mild confusion also improved dramatically. Patient seen today. He denies suicidality homicidality voices or visions. States he wishes to be discharged today. States he has talked with his daughter. Patient will be going to his own home appropriate period of time and then will be going to [facility] follow -up services through the [place] [facility]. Rx 1 month Results Blood Pressure 119 / 71 Vital Signs Date Time Temp Pulse Resp B/P (MAP) Pulse Ox O2 Delivery O2 Flow Rate FiO2 08/26/17 06:02 97.3 92 16 119/71 (87) 98 Urine toxicology positive for benzodiazepines and marijuana Summary of Procedures None done Pending results at discharge: No Medications # of Antipsychotic meds at D/C: 1 Approp Antipsych med options 1 - Minimum of three failed multiple trials of monotherapy. 2 - Documented plan to taper to monotherapy due to previous use of multiple meds OR cross-taper in progress at D/C. 3 - Documentation of augmentation of Clozapine. 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 combat Diagnosis: Principal ICD Code: F43.12 - Post-traumatic stress disorder, chronic (2) Delirium due to another medical condition Diagnosis: Principal ICD Code: F05 - Delirium due to known physiological condition (3) Alcohol withdrawal Diagnosis: Secondary ICD Code: F10.239 - Alcohol dependence with withdrawal, unspecified Pt Condition on Discharge: Stable Discharge Disposition: Discharge Home Discharge Instructions Diet Instructions: As Tolerated, No Restrictions Activities you can perform: Regular-No Restrictions Scheduled Appointment: [facility] Dis[facility] Time > 30 minutes Mental Status Examination Appearance: Disheveled (mildly) Consciousness: Alert Orientation: Person, Place (somewhat vague), Date/Time (somewhat vague) Motor Activity: Normal gait Speech: Unremarkable Language: Adequate Fund of Knowledge: Adequate Attention and Concentration: Easily Distracted Memory: Impaired Mood: Appropriate Affect: Appropriate Thought Process & Associations: Linear Thought Content: Other (somewhat disorganized) Hallucination Type: Auditory (intermittent) Delusion Type: Paranoid (mildly) Suicidal Ideation: No Suicidal Plan: No Suicidal Intention: No Homicidal Ideation: No Homicidal Plan: No Homicidal Intention: No Insight: Fair Judgment: Impulsive Discharge/Advance Care Plan Health Problems: (1) Chronic post-traumatic stress disorder (PTSD) after combat (2) Delirium due to another medical condition (3) Alcohol withdrawal Goals to promote your health * To prevent worsening of your condition and complications * To maintain your health at the optimal level Directions to meet your goals Take your medications as prescribed Follow your dietary instruction Follow activity as directed Keep your appointments as scheduled Take your immunizations and boosters as scheduled If your symptoms worsen call your PCP, if no PCP go to Urgent Care Center or Emergency Room For 07/01 questions related to your inpatient stay or results of tests pending at discharge, please contact Dr. Abran Chiang at Smoking is Dangerous to Your Health. Avoid second hand smoking Abran Chiang MD Aug 26, 2017 11:44
== END 2017-08-26 13:25 | disposition home or self-care (01) | DRG 882 ==
LOC: H270 20:05
PROVIDERS: ADMIT Psychiatry & Neurology Psychiatry; ATTEND Psychiatry & Neurology Psychiatry
DX: F43.12 Post-traumatic stress disorder, chronic (principal); F03.90 Unspecified dementia, unspecified severity, without behavioral disturbance, psychotic disturbance, mood disturbance, and anxiety; I95.9 Hypotension, unspecified; F10.239 Alcohol dependence with withdrawal, unspecified; F05 Delirium due to known physiological condition; F13.239 Sedative, hypnotic or anxiolytic dependence with withdrawal, unspecified; R44.3 Hallucinations, unspecified; E78.5 Hyperlipidemia, unspecified; G40.909 Epilepsy, unspecified, not intractable, without status epilepticus; I10 Essential (primary) hypertension; I25.10 Atherosclerotic heart disease of native coronary artery without angina pectoris; M25.512 Pain in left shoulder; B19.20 Unspecified viral hepatitis C without hepatic coma; F12.90 Cannabis use, unspecified, uncomplicated; F17.210 Nicotine dependence, cigarettes, uncomplicated; Z62.810 Personal history of physical and sexual abuse in childhood; Z86.73 Personal history of transient ischemic attack (TIA), and cerebral infarction without residual deficits; Z95.1 Presence of aortocoronary bypass graft
CPT/HCPCS: 90686; Q2038

== ENCOUNTER 2017-09-02 16:19 | Emergency (ER) | payer MEDICAID ==
[~2017-09-02] VITALS: Ht 160 cm; Wt 68.0 kg
[~2017-09-02 16:19] MED LIST changes: -ALBUAER3 INH; -ATEN25TA PO; +Albuterol Hfa Inh INH; -BUSP10TA PO; -DULO1CAP2 PO; -ENOX40P SQ; -HALO5P IM; -OMEP20TA93 PO; -QUET1TAB10 PO; -SIMV40TA PO; -TRAZ100T10 PO; -VIST25CA PO
[2017-09-02 16:28] VITALS: BP 135/75; PULSE 87; RESP 18; TEMP 99; O2SAT 98
--- NOTE | 2017-09-02 17:52 | RADRPT ---
EXAM DATE/TIME: 09/02/2017 17:41 [facility] COMPARISON: No previous studies available for comparison. INDICATIONS : Left shoulder pain, no known trauma. MEDICAL HISTORY : None. SURGICAL HISTORY : None. ENCOUNTER: Initial ACUITY: 1 week PAIN SCORE: 6/10 LOCATION: Left shoulder. FINDINGS: Multiple view examination of the left shoulder demonstrates no evidence of fracture or dislocation. The glenohumeral and acromioclavicular joints are maintained. There is normal range of motion betwee n internal and external rotation. Bony mineralization is normal. CONCLUSION: Negative for an acute process Lázaro Contreras MD FACR on September 02, 2017 at 17:50 Board Certified Radiologist. This report was verified electronically.
--- NOTE | 2017-09-02 18:47 | PD ---
HPI Chief Complaint: Musculoskeletal Complaint Time Seen by Provider: 17:19 Travel History International Travel<30 days: No Contact w/Intl Traveler<30days: No Traveled to known affect area: No History of Present Illness HPI 57-year-old male here with left shoulder pain with no known injury or trauma. Pain is present for almost 2 weeks. He reports pain with range of motion of the shoulder which is slightly relieved with rest. He denies chest pain or shortness of breath. Symptoms severity is moderate. PFSH Past Medical History Hx Anticoagulant Therapy: Yes Alzheimer's Disease: Yes Arthritis: No Asthma: No Blood Disorders: No Bipolar Disorder: Yes Anxiety: Yes Depression: Yes Heart Rhythm Problems: Yes (murmur?) Cancer: No Cardiovascular Problems: Yes (NH) High Cholesterol: Yes Chemotherapy: No Chest Pain: No Congestive Heart Failure: No COPD: No Cerebrovascular Accident: Yes Dementia: Yes Diabetes: Yes (diet controlled) Patient Takes Glucophage: No Diminished Hearing: No Endocrine: No Gastrointestinal Disorders: No GERD: No Genitourinary: No Headaches: No Hepatitis: Yes (hep c) Hiatal Hernia: No Heparin Induced Thrombocytopen: No Hypertension: Yes Immune Disorder: No Implanted Vascular Access Dvce: Yes Kidney Stones: No Musculoskeletal: Yes (right ankle sx/ back sx -w/hardware /) Neurologic: Yes (neuropathy) Psychiatric: Yes (Bipolar Disorder) Reproductive: No Respiratory: Yes (pt uses inhaler for sob) Migraines: No Radiation Therapy: No Renal Failure: No Seizures: Yes Sickle Cell Disease: No Sleep Apnea: No Thyroid Disease: No Ulcer: No Tetanus Vaccination: < 5 Years Influenza Vaccination: Yes Past Surgical History Abdominal Surgery: No AICD: No Arteriovenous Shunt: No Body Medical Devices: metal hardware in back Cardiac Surgery: Yes Coronary Artery Bypass Graft: Yes (double bypass) Ear Surgery: No Endocrine Surgery: No Eye Surgery: No Genitourinary Surgery: No Gynecologic Surgery: No Insulin Pump: No Joint Replacement: No Oral Surgery: No Pacemaker: No Thoracic Surgery: No Other Surgery: Yes (muscleskeletal, cardiovascular, ) Social History Alcohol Use: Yes (RARE) Tobacco Use: Yes (0.5ppd) Substance Use: Yes (Marijuana daily) Allergies-Medications (Allergen,Severity, Reaction): Coded Allergies: acetaminophen (Verified Adverse Reaction, Intermediate, pt has hepatitis c told not to take, 09/02/17) Reported Meds & Prescriptions Reported Meds & Active Scripts Active Seroquel (Quetiapine Fumarate) 400 Mg Tab 400 Mg PO HS [Albuterol Hfa Inh] 60 PUFF/8 GM Aero 2 Puff INH Q4HR PRN Baclofen 10 Mg Tab 10 Mg PO QID Thera Tablet (Multivitamin with Folic Acid) 400 Mcg Tablet 1 Tab PO DAILY 30 Days Gnp Vitamin B-1 (Thiamine HCl) 100 Mg Tab 100 Mg PO DAILY 30 Days Folic Acid 1 Mg Tablet 1 Mg PO DAILY 30 Days Lisinopril 5 Mg Tab 5 Mg PO DAILY 30 Days Metoprolol Tartrate 25 Mg Tab 25 Mg PO Q12HR 30 Days Review of Systems Except as stated in HPI: all other systems reviewed are Neg Physical Exam Narrative GENERAL: Alert and well-appearing 57 old male SKIN: Warm and dry. HEAD: Normocephalic. EYES: No injection or drainage. NECK: Supple, trachea midline. No JVD or lymphadenopathy. CARDIOVASCULAR: Regular rate and rhythm without murmurs, gallops, or rubs. RESPIRATORY: Breath sounds equal bilaterally. No accessory muscle use. GASTROINTESTINAL: Abdomen soft, non-tender, nondistended. MUSCULOSKELETAL: No cyanosis, or edema. Left upper extremity:+TTP proximal humerus. No deformity. Pain with abduction and external rotation of the shoulder. 2+ distal pulses. Normal sensation. Brisk cap refill. BACK: Nontender without obvious deformity. No CVA tenderness. Data Data Last Documented VS Vital Signs Date Time Temp Pulse Resp B/P (MAP) Pulse Ox O2 Delivery O2 Flow Rate FiO2 09/02/17 16:28 99.0 87 18 135/75 (95) 98 Orders Orders Shoulder, Complete (>2vws) (09/02/17 ) Ed Discharge Order (09/02/17 18:48) MDM Medical Decision Making Medical Screen Exam Complete: Yes Emergency Medical Condition: Yes Differential Diagnosis Rotator cuff injury, shoulder sprain/strain, humerus fracture Narrative Course 57-year-old male here with proximal humerus pain with no known injury or trauma. Area is tender to palpation reproducible with range of motion. Extremities neurovascular intact x-rays negative for fracture. Diagnosis Primary Impression: Left shoulder pain Qualified Codes: M25.512 - Pain in left shoulder Referrals: Primary Care Physician Additional Instructions: ibuprofen as needed for pain. Follow-up with her primary doctor. Return if he developed no worsening symptoms. Disposition: 01 DISCHARGE HOME Condition: Stable Rukhsana Rodriguez Sep 02, 2017 18:47
== END 2017-09-02 19:03 | disposition home or self-care (01) ==
LOC: PHED 16:19 → PHEFT 19:03
DX: M25.512 Pain in left shoulder (principal); I10 Essential (primary) hypertension; F17.200 Nicotine dependence, unspecified, uncomplicated; F12.10 Cannabis abuse, uncomplicated
CPT/HCPCS: 73030; 99283

== ENCOUNTER 2018-02-08 12:03 | Inpatient (IN) ==
--- NOTE | 2018-02-08 12:13 | ED ---
HPI General Chief Complaint: Altered Mental Status Stated Complaint: Confused Time Seen by Provider: 02/08/18 12:06 Source: patient, EMS, RN notes reviewed and old records reviewed Mode of arrival: EMS Limitations: altered mental status History of Present Illness HPI narrative: 57-year-old male last seen normal last night who presents with altered mental status. Patient cannot give me any history but does state his name. Daughter on scene provided medication list and brief history. History is significantly limited. MD complaint: altered mental status Related Data Home Medications Medication Instructions Recorded Confirmed buspirone 10 mg PO BID 02/08/18 02/08/18 divalproex 250 mg PO DAILY 02/08/18 02/08/18 levetiracetam 250 mg PO Q12H 02/08/18 02/08/18 lisinopril 20 mg PO DAILY 02/08/18 02/08/18 quetiapine 400 mg PO DAILY 02/08/18 02/08/18 trazodone 300 mg PO DAILY 02/08/18 02/08/18 Allergies Allergy/AdvReac Type Severity Reaction Status Date / Time acetaminophen AdvReac Intermediate pt has Verified 09/02/17 16:30 hepatitis c told not to take Review of Systems ROS: all other systems reviewed are negative PMFSH History History 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 HEAD: Atraumatic. Normocephalic. EYES: Pupils equal and round. No scleral icterus. No injection or drainage. ENT: No nasal bleeding or discharge. Mucous membranes pink and moist. NECK: Trachea midline. CARDIOVASCULAR: Regular rate and rhythm. RESPIRATORY: No accessory muscle use. Clear to auscultation. Breath sounds equal bilaterally. GASTROINTESTINAL: Abdomen soft, nondistended. MUSCULOSKELETAL: No obvious deformities. No clubbing. No cyanosis. NEUROLOGICAL: Patient with eyes open, follows commands, moves all extremities, states name but will not talk further than this Course Reevaluation(s) Reevaluation #1: On reevaluation patient is unchanged and still will only state his name. Blood pressure is low but stable after IV fluids. ED workup shows mild lactic acidosis but no emergent findings of mental status. Question prolonged postictal phase versus overmedication. Patient will need to be admitted for further care Consultations Consultation #1: resident team agrees to admit Initial Documented Vital Signs Temperature 98.3 F 02/08/18 12:06 Pulse Rate 106 H 02/08/18 12:06 Respiratory Rate 18 02/08/18 12:06 Blood Pressure 115/64 02/08/18 12:06 Pulse Oximetry 94 L 02/08/18 12:06 Last Documented Vital Signs Temperature 98.3 F 02/08/18 12:06 Pulse Rate 83 02/08/18 13:44 Respiratory Rate 16 02/08/18 13:44 Blood Pressure 96/55 L 02/08/18 13:44 Pulse Oximetry 93 L 02/08/18 13:44 Medical Decision Making [facility] Narrative Medical decision making narrative: Will check blood work, imaging and reevaluate for altered mental status workup Medical Screen Exam Complete: Yes Emergency Medical Condition: Yes Differential Diagnosis Differential Diagnosis: Hypoglycemia, electrolyte abnormality, intoxication, intracranial, UTI Lab Data Lab results reviewed: Yes I reviewed the patient's lab results. Result diagrams: 02/08/18 12:17 02/08/18 12:17 Lab Results 02/08/18 02/08/18 02/08/18 Range/Units 12:17 12:17 12:17 WBC 13.3 H (4.0-11.0) th/mm3 RBC 5.21 (4.50-5.90) mil/mm3 Hgb 15.6 (13.0-17.0) gm/dL Hct 46.2 (39.0-51.0) % MCV 88.6 (80.0-100.0) fL MCH 29.8 (27.0-34.0) pg MCHC 33.7 (32.0-36.0) % RDW 14.2 (11.6-17.2) % Plt Count 193 (150-450) th/mm3 MPV 8.7 (7.0-11.0) fL Neut % (Auto) 82.5 H (16.0-70.0) % Lymph % (Auto) 6.9 L (9.0-44.0) % Rankin % (Auto) 10.2 H (0.0-8.0) % Eos % (Auto) 0.2 (0.0-4.0) % Baso % (Auto) 0.2 (0.0-2.0) % Neut # (Auto) 10.9 H (1.8-7.7) th/mm3 Lymph # (Auto) 0.9 L (1.0-4.8) th/mm3 Rankin # (Auto) 1.4 H (0.0-0.9) th/mm3 Eos # (Auto) 0.0 (0.0-0.4) th/mm3 Baso # (Auto) 0.0 (0.0-0.2) th/mm3 WBC Differential . Differential Comment Auto diff final PT 10.6 (9.8-11.6) sec INR 1.0 Ratio APTT 22.1 L (24.3-30.1) sec Sodium 139 (136-145) meq/L Potassium 4.7 (3.5-5.1) meq/L Chloride 108 H (98-107) meq/L Carbon Dioxide 22.4 (21.0-32.0) meq/L Anion Gap 9 (5-15) meq/L BUN 14 (7-18) mg/dL Creatinine 2.62 H (0.60-1.30) mg/dL Estimated GFR 25 L (>89) mL/min Random Glucose 128 H (74-106) mg/dL Lactic Acid (0.4-2.0) mmol/L Calcium 9.8 (8.5-10.1) mg/dL Total Bilirubin 0.4 (0.2-1.0) mg/dL AST 22 (15-37) U/L ALT 28 (12-78) U/L Alkaline Phosphatase 92 (45-117) U/L Ammonia (11-32) mcmol/L Total Creatine Kinase (39-308) U/L Troponin I Less than 0.02 L (0.02-0.05) ng/mL Total Protein 8.3 H (6.4-8.2) g/dL Albumin 4.5 (3.4-5.0) g/dL Urine Color (Yellw/Straw) Urine Clarity (Clear) Urine pH (5.0-8.5) Ur Specific [place] (1.002-1.035) Urine Protein (Neg-Trace) mg/dL Urine Glucose (UA) (Negative) mg/dL Urine Ketones (Negative) mg/dL Urine Occult Blood (Negative) Urine Nitrate (Negative) Urine Bilirubin (Negative) Urine Urobilinogen (Less than 2) mg/dL Ur Leukocyte Esterase (Negative) Urine RBC (0-3) /hpf Urine WBC (0-5) /hpf Micro UA Comment Ur Microscopic Review Urine Culture Comments Urine Opiates Screen (Neg) Ur Barbiturates Screen (Neg) Ur Amphetamines Screen (Neg) U Benzodiazepines Scrn (Neg) Urine Cocaine Screen (Neg) U Cannabinoids Screen (Neg) Serum Alcohol Less than 3 (0-5) mg/dL 02/08/18 02/08/18 02/08/18 Range/Units 12:17 12:17 12:17 WBC (4.0-11.0) th/mm3 RBC (4.50-5.90) mil/mm3 Hgb (13.0-17.0) gm/dL Hct (39.0-51.0) % MCV (80.0-100.0) fL MCH (27.0-34.0) pg MCHC (32.0-36.0) % RDW (11.6-17.2) % Plt Count (150-450) th/mm3 MPV (7.0-11.0) fL Neut % (Auto) (16.0-70.0) % Lymph % (Auto) (9.0-44.0) % Rankin % (Auto) (0.0-8.0) % Eos % (Auto) (0.0-4.0) % Baso % (Auto) (0.0-2.0) % Neut # (Auto) (1.8-7.7) th/mm3 Lymph # (Auto) (1.0-4.8) th/mm3 Rankin # (Auto) (0.0-0.9) th/mm3 Eos # (Auto) (0.0-0.4) th/mm3 Baso # (Auto) (0.0-0.2) th/mm3 WBC Differential Differential Comment PT (9.8-11.6) sec INR Ratio APTT (24.3-30.1) sec Sodium (136-145) meq/L Potassium (3.5-5.1) meq/L Chloride (98-107) meq/L Carbon Dioxide (21.0-32.0) meq/L Anion Gap (5-15) meq/L BUN (7-18) mg/dL Creatinine (0.60-1.30) mg/dL Estimated GFR (>89) mL/min Random Glucose (74-106) mg/dL Lactic Acid 2.2 H (0.4-2.0) mmol/L Calcium (8.5-10.1) mg/dL Total Bilirubin (0.2-1.0) mg/dL AST (15-37) U/L ALT (12-78) U/L Alkaline Phosphatase (45-117) U/L Ammonia 36 H (11-32) mcmol/L Total Creatine Kinase 110 (39-308) U/L Troponin I (0.02-0.05) ng/mL Total Protein (6.4-8.2) g/dL Albumin (3.4-5.0) g/dL Urine Color (Yellw/Straw) Urine Clarity (Clear) Urine pH (5.0-8.5) Ur Specific [place] (1.002-1.035) Urine Protein (Neg-Trace) mg/dL Urine Glucose (UA) (Negative) mg/dL Urine Ketones (Negative) mg/dL Urine Occult Blood (Negative) Urine Nitrate (Negative) Urine Bilirubin (Negative) Urine Urobilinogen (Less than 2) mg/dL Ur Leukocyte Esterase (Negative) Urine RBC (0-3) /hpf Urine WBC (0-5) /hpf Micro UA Comment Ur Microscopic Review Urine Culture Comments Urine Opiates Screen (Neg) Ur Barbiturates Screen (Neg) Ur Amphetamines Screen (Neg) U Benzodiazepines Scrn (Neg) Urine Cocaine Screen (Neg) U Cannabinoids Screen (Neg) Serum Alcohol (0-5) mg/dL 02/08/18 02/08/18 Range/Units 12:19 12:19 WBC (4.0-11.0) th/mm3 RBC (4.50-5.90) mil/mm3 Hgb (13.0-17.0) gm/dL Hct (39.0-51.0) % MCV (80.0-100.0) fL MCH (27.0-34.0) pg MCHC (32.0-36.0) % RDW (11.6-17.2) % Plt Count (150-450) th/mm3 MPV (7.0-11.0) fL Neut % (Auto) (16.0-70.0) % Lymph % (Auto) (9.0-44.0) % Rankin % (Auto) (0.0-8.0) % Eos % (Auto) (0.0-4.0) % Baso % (Auto) (0.0-2.0) % Neut # (Auto) (1.8-7.7) th/mm3 Lymph # (Auto) (1.0-4.8) th/mm3 Rankin # (Auto) (0.0-0.9) th/mm3 Eos # (Auto) (0.0-0.4) th/mm3 Baso # (Auto) (0.0-0.2) th/mm3 WBC Differential Differential Comment PT (9.8-11.6) sec INR Ratio APTT (24.3-30.1) sec Sodium (136-145) meq/L Potassium (3.5-5.1) meq/L Chloride (98-107) meq/L Carbon Dioxide (21.0-32.0) meq/L Anion Gap (5-15) meq/L BUN (7-18) mg/dL Creatinine (0.60-1.30) mg/dL Estimated GFR (>89) mL/min Random Glucose (74-106) mg/dL Lactic Acid (0.4-2.0) mmol/L Calcium (8.5-10.1) mg/dL Total Bilirubin (0.2-1.0) mg/dL AST (15-37) U/L ALT (12-78) U/L Alkaline Phosphatase (45-117) U/L Ammonia (11-32) mcmol/L Total Creatine Kinase (39-308) U/L Troponin I (0.02-0.05) ng/mL Total Protein (6.4-8.2) g/dL Albumin (3.4-5.0) g/dL Urine Color Yellow (Yellw/Straw) Urine Clarity Clear (Clear) Urine pH 7.0 (5.0-8.5) Ur Specific [place] 1.004 (1.002-1.035) Urine Protein Negative (Neg-Trace) mg/dL Urine Glucose (UA) Negative (Negative) mg/dL Urine Ketones Negative (Negative) mg/dL Urine Occult Blood Negative (Negative) Urine Nitrate Negative (Negative) Urine Bilirubin Negative (Negative) Urine Urobilinogen Less than 2 (Less than 2) mg/dL Ur Leukocyte Esterase Negative (Negative) Urine RBC Less than 1 (0-3) /hpf Urine WBC Less than 1 (0-5) /hpf Micro UA Comment Culture not ind Ur Microscopic Review Not Reportable Urine Culture Comments Culture not ind Urine Opiates Screen Neg (Neg) Ur Barbiturates Screen Neg (Neg) Ur Amphetamines Screen Neg (Neg) U Benzodiazepines Scrn Neg (Neg) Urine Cocaine Screen Neg (Neg) U Cannabinoids Screen Neg (Neg) Serum Alcohol (0-5) mg/dL Imaging Data Attestation: I personally reviewed and interpreted this imaging study as follows : Radiologist's impression: Head CT 02/08/18 12:06 CONCLUSION: 1. Stable noncontrast head CT. No acute intracranial abnormality is identified. 2. 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 . Chest X-Ray 02/08/18 13:11 CONCLUSION: No acute cardiopulmonary abnormality is identified. Discharge Plan Discharge Disposition Patient Disposition: 30 Still Patient Discharge Condition Condition: Stable Discharge Details Diagnosis: Altered mental status, Acidosis, lactic, Acute hypotension Physicians Team ED Provider: Daniella Christianson Primary Care Provider: Primary Care PhysiciAiram Rxs /Orders / Referrals /Forms Prescriptions: No Action lisinopril 20 mg Tablet 20 mg PO DAILY RF: 0 levetiracetam 250 mg Tablet 250 mg PO Q12H RF: 0 buspirone 10 mg Tablet 10 mg PO BID RF: 0 trazodone 300 mg Tablet 300 mg PO DAILY RF: 0 divalproex 250 mg Tablet Extended Release 24 Hr 250 mg PO DAILY RF: 0 quetiapine 400 mg Tablet Extended Release 24 Hr 400 mg PO DAILY RF: 0 Discharge Interventions Interventions: Vital Signs Last Done: 02/08/18 13:44 Status ED Status: Admitted Patient
[2018-02-08] MEDS ORDERED: Sod Chloride 0.9% Inj 1,000 ML IV.SIG SCH ×2 (12:15→13:00)
[2018-02-08 12:44] LABS: Baso % (Auto) 0.2 % (0.0-2.0); Eos % (Auto) 0.2 % (0.0-4.0); Hematocrit 46.2 % (39.0-51.0); Hemoglobin 15.6 gm/dL (13.0-17.0); Lymph # (Auto) 0.9 th/mm3 (1.0-4.8); Lymph % (Auto) 6.9 % (9.0-44.0); Mean Corpuscular HGB Conc 33.7 % (32.0-36.0); Mean Corpuscular Hemoglobin 29.8 pg (27.0-34.0); Mean Corpuscular Volume 88.6 fL (80.0-100.0); Mean Platelet Volume 8.7 fL (7.0-11.0); Mono # (Auto) 1.4 th/mm3 (0.0-0.9); Mono % (Auto) 10.2 % (0.0-8.0); Neut # (Auto) 10.9 th/mm3 (1.8-7.7); Neut % (Auto) 82.5 % (16.0-70.0); Platelet Count 193 th/mm3 (150-450); Red Blood Count 5.21 mil/mm3 (4.50-5.90); Red Cell Distribution Width 14.2 % (11.6-17.2); White Blood Count 13.3 th/mm3 (4.0-11.0)
[2018-02-08 12:53] LABS: Activated Partial Thrombo Time 22.1 sec (24.3-30.1); Prothrombin Time 10.6 sec (9.8-11.6)
[2018-02-08] MEDS ORDERED: Piperacil/Tazo 4.5 GM Premix 4.5 GM/100 ML BAG IV.SIG ONE (12:58)
[2018-02-08] MEDS ORDERED: Vancomycin Inj 1 GM/200 ML PIGGYBACK IV.SIG ONE (13:10)
[2018-02-08 13:18] LABS: Alanine Aminotransferase 28 U/L (12-78); Albumin 4.5 g/dL (3.4-5.0); Anion Gap 9 meq/L (5-15); Aspartate Aminotransferase 22 U/L (15-37); Blood Urea Nitrogen 14 mg/dL (7-18); Calcium 9.8 mg/dL (8.5-10.1); Carbon Dioxide 22.4 meq/L (21.0-32.0); Chloride 108 meq/L (98-107); Glomerular Filtration Rate 25 mL/min (>89); Glucose,Random 128 mg/dL (74-106); Potassium 4.7 meq/L (3.5-5.1); Sodium 139 meq/L (136-145)
[2018-02-08 13:21] LABS: Alkaline Phosphatase 92 U/L (45-117); Total Protein 8.3 g/dL (6.4-8.2)
[2018-02-08 13:31] LABS: Bilirubin,Urine Negative (Negative); Clarity,Urine Clear (Clear); Color,Urine Yellow (Yellw/Straw); Glucose,Urine (UA) Negative (Negative); Leukocyte Esterase,Urine Negative (Negative); Nitrite,Urine Negative (Negative); Specific Gravity,Urine 1.004 (1.002-1.035)
[2018-02-08 13:36] LABS: Amphetamine Screen,Urine Neg (Neg); Barbiturate Screen,Urine Neg (Neg); Cannabinoid Screen,Urine Neg (Neg); Cocaine Screen,Urine Neg (Neg)
[2018-02-08 13:38] LABS: Opiate Screen,Urine Neg (Neg)
--- NOTE | 2018-02-08 13:43 | XR ---
EXAM DATE: 02/08/2018 1:36 PM EDT AGE/SEX: 57 years / Male INDICATIONS: Shortness of breath. CLINICAL DATA: This is the patient's initial encounter. Patient reports that signs and symptoms have been present for 1 day and indicates a pain score of Nonresponsive. MEDICAL/SURGICAL HISTORY: Non-responsive. Non-responsive. COMPARISON: [facility] – [place]ST SINGLE AP, 08/05/2017. . FINDINGS: Underinflated AP view of the chest demonstrates a normal-sized cardiac silhouette. Median sternotomy wires are present. Lungs are mildly underinflated. No pleural effusion, airspace consolidation, or pn eumothorax is identified. The bones and soft tissues demonstrate no acute finding. Lumbar spine hardw are is present. CONCLUSION: No acute cardiopulmonary abnormality is identified. Electronically signed by: Abran Rodas MD 02/08/2018 1:42 PM EDT
--- NOTE | 2018-02-08 14:57 | CT ---
EXAM DATE: 02/08/2018 2:33 PM EDT AGE/SEX: 57 years / Male INDICATIONS: Altered mental status CLINICAL DATA: This is the patient's initial encounter. Patient reports that signs and symptoms have been present for 1 day and indicates a pain score of 0/10. MEDICAL/SURGICAL HISTORY: None. None. RADIATION DOSE: 34.37 CTDI (mGy) COMPARISON: [facility] – [place] BRAIN W/O CONTRAST, 08/06/2017. . TECHNIQUE: CT of the head without contrast. Using automated exposure control and adjustment of the mA and/or kV according to patient size, radiation dose was kept as low as reasonably achievable to ob tain optimal diagnostic quality images. DICOM format image data is available electronically for revi ew and comparison. FINDINGS: Cerebrum: The ventricles are normal. There is stable encephalomalacia in the right frontoparietal hi gh convexity. No midline shift, mass lesion, hemorrhage or acute infarction. No extraaxial fluid col lections are seen. Posterior Fossa: The cerebellum and brainstem demonstrate no acute abnormality. The 4th ventricle is midline. The cerebellopontine angle is within normal limits. Extracranial: The visualized sinuses are clear. Skull: The calvaria is intact. No skull fracture. CONCLUSION: 1. Stable noncontrast head CT. No acute intracranial abnormality is identified. 2. 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 . Electronically signed by: Abran Rodas MD 02/08/2018 2:55 PM EDT
[2018-02-08] MEDS ORDERED: Vancomycin Inj 1,000 MG in Sodium Chlor 0.9% Inj 250 ML IV.SIG ONE (15:00)
[2018-02-08] MEDS ORDERED: Bisacodyl 10 MG Supp RECTAL PRN (16:09)
[2018-02-08] MEDS ORDERED: Acetaminophen 325 MG Tablet PO PRN (16:09)
--- NOTE | 2018-02-08 16:24 | P.HPFP ---
History of Present Illness Primary Care Physician: No Primary Care Physician <Tia Workman 02/09/18 15:35> No Primary Care Physician <Reggie Pino 02/08/18 18:30> Chief Complaint: Altered mental status <Reggie Pino 02/08/18 18:30> History of Present Illness: 57-year-old male with a history of multiple hospitalizations secondary to altered mental status/psych issues last seen normal on the night prior to admission presents with altered mental status. Patient is arousable with sternal rub and some voice commands but does not answer questions appropriately and is unable to give us any history. When asked he does deny any substance use. Daughter on scene provided medication list and brief history to EMS. Daughter was unable to be contacted in the emergency room. <Reggie Pino 02/08/18 18:30> - Diagnosis (1) Altered mental status (2) Elevated serum creatinine (3) Acidosis, lactic (4) History of psychiatric care (5) Seizure disorder (6) Hypertension (7) Nutrition, metabolism, and development symptoms <JacintaNickoTai M - 02/09/18 15:35> (1) Altered mental status (2) Elevated serum creatinine (3) Acidosis, lactic (4) History of psychiatric care (5) Seizure disorder (6) Hypertension (7) Nutrition, metabolism, and development symptoms <AlvarezReggie Ochoa 02/08/18 17:56> Inpatient Certification: I certify that the inpatient services were ordered in accordance with Medicare regulations governing the order. This includes certification that hospital inpatient services are reasonable and necessary and in the case of services not specified as inpatient-only under 42 CFR 419.22(n), that they are appropriately provided as inpatient services in accordance to with the 2-midnight benchmark under 43 CFR 412.3(e) <Tia Workman 02/09/18 15:35> Review of Systems unobtainable due to mental status <Reggie Pino 02/08/18 18:30> PMFSH - History History Provided By: [employer] Engineer / EMT <Reggie Pino 02/08/18 16:24> - Medical History Medical History: Medical History (Last Updated 02/08/18 @ 18:25 by Reggie Pino MD, R2) Hypertension Medical history unknown Seizure disorder Surgical history unknown <Tia Workman 02/09/18 15:35> Medical History (Last Updated 02/08/18 @ 18:25 by Reggie Pino MD, R2) Hypertension Medical history unknown Seizure disorder Surgical history unknown <Reggie Pino 02/08/18 18:30> - Tobacco History Tobacco Use In Past 30 Days: Yes (UTO) <Reggie Pino 02/08/18 16:24> Smoking Status: Smoker, status unknown <Reggie Pino 02/08/18 16:24> Tobacco Type: Cigarettes <Reggie Pino 02/08/18 16:24> - Alcohol History How Often Do You Have a Drink Containing Alcohol: Unable to Obtain <Reggie Pino 02/08/18 16:24> - Substance Use History Substance History: Unable to Obtain <Reggie Pino 02/08/18 16:24> - Travel History Recent Travel in the [facility] Within the Last 8 Weeks: No <Reggie Pino 02/08 16:24> Recent Travel Out of the Country Within the Last 8 Weeks: No <Reggie Pino 02/08/18 16:24> - Immunization History Tetanus Immunization: Unable to Assess <Reggie Pino 02/08/18 16:24> Hx Influenza Vaccine This Season: Unable to Assess <Reggie Pino 16:24> Medications and Allergies Allergies Allergy/AdvReac Type Severity Reaction Status Date / Time acetaminophen AdvReac Intermediate pt has Verified 09/02/17 16:30 hepatitis c told not to take <Tia Workman - 02/09/18 15:35> Home Medications Medication Instructions Recorded Confirmed Type buspirone 10 mg PO BID 02/08/18 02/08/18 History divalproex 250 mg PO DAILY 02/08/18 02/08/18 History levetiracetam 250 mg PO Q12H 02/08/18 02/08/18 History lisinopril 20 mg PO DAILY 02/08/18 02/08/18 History quetiapine 400 mg PO DAILY 02/08/18 02/08/18 History trazodone 300 mg PO DAILY 02/08/18 02/08/18 History <Tia Workman - 02/09/18 15:35> Active Medications: Active Medications Al Hydroxide/Mg Hydroxide (Milk Of Magnesia Liq) 30 ml PO Q12H PRN PRN Reason: Mild Constipation Bisacodyl (Dulcolax Supp) 10 mg RECTAL DAILY PRN PRN Reason: SEVERE CONSITIPATION Buspirone HCl (Buspar) 10 mg PO BID [facility] Last Admin: 02/09/18 15:02 Dose: 10 mg Clonidine HCl (Catapres) 0.1 mg PO Q6H PRN PRN Reason: SEE LABEL COMMENTS Divalproex Sodium (Depakote Er) 250 mg PO DAILY [facility] Last Admin: 02/09/18 12:26 Dose: 250 mg Flumazenil (Romazecon Inj) 0.2 mg IV.PUSH Q1M PRN PRN Reason: OVERSEDATION Haloperidol Lactate (Haldol Inj) 1 mg IV.PUSH Q15M PRN PRN Reason: for severe agitation Sodium Chloride (Ns Inj) 1,000 mls @ 0 mls/hr IV.SIG BOLUS [facility] Last Infusion: 02/08/18 15:50 Dose: Infused Sodium Chloride (Ns Inj) 1,000 mls @ 0 mls/hr IV.SIG BOLUS [facility] Last Infusion: 02/08/18 15:50 Dose: Infused Sodium Chloride (Ns Inj) 1,000 mls @ 150 mls/hr IV.CONT .Q6H40M [facility] Last Admin: 02/09/18 10:57 Dose: Not Given Lactulose (Lactulose Liq) 30 ml PO DAILY PRN PRN Reason: SEVERE CONSITIPATION Levetiracetam (Keppra) 250 mg PO Q12H [facility] Last Admin: 02/09/18 15:02 Dose: 250 mg Lisinopril (Prinivil) 20 mg PO DAILY [facility] Last Admin: 02/09/18 12:26 Dose: 20 mg Lorazepam (Ativan Inj) 1 mg IV.PUSH Q4H PRN PRN Reason: AGITATION Lorazepam (Ativan) 1 mg PO Q4H PRN PRN Reason: for CIWA 8-10 Last Admin: 02/09/18 14:51 Dose: 1 mg Lorazepam (Ativan) 2 mg PO Q2H PRN PRN Reason: for CIWA 11-14 Lorazepam (Ativan Inj) 2 mg IV.PUSH Q2H PRN PRN Reason: for CIWA 11-14 Lorazepam (Ativan Inj) 2 mg IV.PUSH Q1H PRN PRN Reason: for CIWA 15-20 Lorazepam (Ativan Inj) 2 mg IV.PUSH Q15M PRN PRN Reason: for CIWA > 20 Lorazepam (Ativan Inj) 1 mg IV.PUSH Q4H PRN PRN Reason: for CIWA 8-10 Ondansetron HCl (Zofran Inj) 4 mg IV.PUSH Q6H PRN PRN Reason: NAUSEA OR VOMITING Quetiapine Fumarate (Seroquel) 400 mg PO HS [facility] Senna/Docusate Sodium (Brooke-Colace) 1 tab PO BID [facility] Last Admin: 02/09/18 09:09 Dose: 1 tab Sennosides (Senokot) 17.2 mg PO Q12H PRN PRN Reason: Moderate Constipation Sodium Chloride (Ns Flush) 2 ml IV.FLUSH PRN PRN PRN Reason: FLUSH AFTER USING IV ACCESS Trazodone HCl (Desyrel) 300 mg PO HS [facility] <Tia Workman M - 02/09/18 15:35> Active Medications Al Hydroxide/Mg Hydroxide (Milk Of Magnesia Liq) 30 ml PO Q12H PRN PRN Reason: Mild Constipation Bisacodyl (Dulcolax Supp) 10 mg RECTAL DAILY PRN PRN Reason: SEVERE CONSITIPATION Sodium Chloride (Ns Inj) 1,000 mls @ 0 mls/hr IV.SIG BOLUS [facility] Last Infusion: 02/08/18 15:50 Dose: Infused Sodium Chloride (Ns Inj) 1,000 mls @ 0 mls/hr IV.SIG BOLUS [facility] Last Infusion: 02/08/18 15:50 Dose: Infused Sodium Chloride (Ns Inj) 1,000 mls @ 100 mls/hr IV.CONT .Q10H [facility] Lactulose (Lactulose Liq) 30 ml PO DAILY PRN PRN Reason: SEVERE CONSITIPATION Ondansetron HCl (Zofran Inj) 4 mg IV.PUSH Q6H PRN PRN Reason: NAUSEA OR VOMITING Senna/Docusate Sodium (Brooke-Colace) 1 tab PO BID [facility] Sennosides (Senokot) 17.2 mg PO Q12H PRN PRN Reason: Moderate Constipation Sodium Chloride (Ns Flush) 2 ml IV.FLUSH PRN PRN PRN Reason: FLUSH AFTER USING IV ACCESS <AlvarezReggie B - 02/08/18 16:24> Exam Vital signs: Vital Signs 02/08/18 16:00 02/08/18 18:55 02/08/18 19:20 Temperature 97.3 F L Pulse Rate 89 89 86 Respiratory Rate 18 18 Blood Pressure 123/76 147/89 H Pulse Oximetry 97 99 02/08/18 20:00 02/08/18 20:45 02/08/18 23:46 Temperature 98 F Pulse Rate 78 87 Respiratory Rate 18 Blood Pressure 159/108 H 148/95 H Pulse Oximetry 97 02/09/18 00:00 02/09/18 04:00 02/09/18 08:00 Temperature 98 F 97.9 F 97.1 F L Pulse Rate 86 75 87 Respiratory Rate 16 16 18 Blood Pressure 133/72 136/74 139/78 Pulse Oximetry 97 98 96 02/09/18 09:00 02/09/18 13:47 Temperature Pulse Rate 76 Respiratory Rate Blood Pressure Pulse Oximetry 96 Intake & Output 02/08/18 02/09/18 02/09/18 18:59 06:59 18:59 Intake Total 2350 / 2350 1360 / 1360 900 / 900 Balance 2350 / 2350 1360 / 1360 900 / 900 Weight 77.111 kg 77.2 kg Intake: IV 2350 / 2350 1000 / 1000 900 / 900 NS Inj 1,000 ML @ 150 mls/hr IV 1000 / 1000 900 / 900 .CONT .Q6H40M [facility] Rx#:[id number] NS Inj 1,000 ML @ Wide Open IV. 1999 / 1999 SIG BOLUS [facility] Rx#:[id number] Vancomycin Inj 1,000 MG In NS 250 / 250 Inj 250 ML @ 200 mls/hr IV.SIG ONCE ONE Rx#:[id number] Oral 360 / 360 Other: # Voids 2 # Bowel Movements 0 Weight On Admission 73.2 kg <Tia Workman - 02/09/18 15:35> Vital Signs 02/08/18 12:06 02/08/18 12:10 02/08/18 13:00 Temperature 98.3 F Pulse Rate 106 H 89 Respiratory Rate 18 18 Blood Pressure 115/64 96/55 L Pulse Oximetry 94 L 94 L 94 L 02/08/18 13:44 02/08/18 16:00 Temperature Pulse Rate 83 89 Respiratory Rate 16 18 Blood Pressure 96/55 L 123/76 Pulse Oximetry 93 L 97 Intake & Output 02/07/18 02/08/18 02/08/18 18:59 06:59 18:59 Intake Total 1999 Balance 1999 Weight 77.111 kg Intake: IV 1999 NS Inj 1,000 ML @ Wide Open IV. 1999 SIG BOLUS [facility] Rx#:[id number] <Reggie Pino - 02/08/18 16:24> Narrative: GENERAL: Well-developed well-nourished male resting comfortably in no apparent respiratory distress. Is arousable but stares off into space and does not answer questions appropriately. SKIN: Warm and dry. Erythematous/blanching distribution around the sternum/ neck consistent with sunburn HEAD: Atraumatic. Normocephalic. EYES: Pupils equal, round. 4 mm in diameter with no pupillary response to penlight. No scleral icterus. No injection or drainage. ENT: No nasal bleeding or discharge. Mucous membranes pink and moist. NECK: Trachea midline. No JVD. CARDIOVASCULAR: Regular rate and rhythm. RESPIRATORY: No accessory muscle use. Clear to auscultation. Breath sounds equal bilaterally. GASTROINTESTINAL: Abdomen soft, non-tender, nondistended. Hepatic and splenic margins not palpable. MUSCULOSKELETAL: Extremities without clubbing, cyanosis, or edema. No obvious deformities. NEUROLOGICAL: Sleeping but arousable. No obvious cranial nerve deficits. Motor grossly within normal limits. Unable to assess cranial nerve/neurologic exam PSYCHIATRIC: Unable to assess <Reggie Pino - 02/08/18 18:30> Results - Labs Result diagrams: 02/09/18 06:13 02/09/18 06:13 <Tia Workman - 02/09/18 15:35> Abnormal lab results 02/08/18 02/08/18 02/09/18 Range/Units 12:17 16:23 06:13 RBC 4.02 L (4.50-5.90) mil/mm3 Hgb 12.2 L D (13.0-17.0) gm/dL Hct 35.6 L (39.0-51.0) % Plt Count 138 L (150-450) th/mm3 [place] % (Auto) 10.4 H (0.0-8.0) % ABG pCO2 37 L (38-42) mmHg ABG Base Excess -2.2 L (-2-2) mmol/L ABG Methemoglobin 2.1 H (0-2) % Sodium (136-145) meq/L Chloride (98-107) meq/L BUN (7-18) mg/dL Creatinine (0.60-1.30) mg/dL Estimated GFR (>89) mL/min Calcium (8.5-10.1) mg/dL Total Protein (6.4-8.2) g/dL Albumin (3.4-5.0) g/dL Lipase (73-393) U/L Valproic Acid 43 L (50-100) mcg/mL 02/09/18 02/09/18 Range/Units 06:13 06:13 RBC (4.50-5.90) mil/mm3 Hgb (13.0-17.0) gm/dL Hct (39.0-51.0) % Plt Count (150-450) th/mm3 [place] % (Auto) (0.0-8.0) % ABG pCO2 (38-42) mmHg ABG Base Excess (-2-2) mmol/L ABG Methemoglobin (0-2) % Sodium 146 H (136-145) meq/L Chloride 115 H (98-107) meq/L BUN 20 H (7-18) mg/dL Creatinine 1.40 H (0.60-1.30) mg/dL Estimated GFR 52 L (>89) mL/min Calcium 7.9 L D (8.5-10.1) mg/dL Total Protein 6.2 L D (6.4-8.2) g/dL Albumin 3.2 L D (3.4-5.0) g/dL Lipase 64 L (73-393) U/L Valproic Acid (50-100) mcg/mL Short CBC 02/09/18 Range/Units 06:13 WBC 8.8 (4.0-11.0) th/mm3 Hgb 12.2 L D (13.0-17.0) gm/dL Hct 35.6 L (39.0-51.0) % Plt Count 138 L (150-450) th/mm3 BMP 02/09/18 06:13 Sodium 146 H Potassium 4.4 Chloride 115 H Carbon Dioxide 22.7 BUN 20 H Creatinine 1.40 H Calcium 7.9 L D Cardiac Enzymes 02/09/18 Range/Units 06:13 Total Creatine Kinase 154 (39-308) U/L Liver Function 02/09/18 Range/Units 06:13 Total Bilirubin 0.4 (0.2-1.0) mg/dL AST 18 (15-37) U/L ALT 22 (12-78) U/L Alkaline Phosphatase 74 (45-117) U/L Albumin 3.2 L D (3.4-5.0) g/dL <Tia Workman - 02/09/18 15:35> Abnormal lab results 02/08/18 02/08/18 02/08/18 Range/Units 12:17 12:17 12:17 WBC 13.3 H (4.0-11.0) th/mm3 Neut % (Auto) 82.5 H (16.0-70.0) % Lymph % (Auto) 6.9 L (9.0-44.0) % [place] % (Auto) 10.2 H (0.0-8.0) % Neut # (Auto) 10.9 H (1.8-7.7) th/mm3 Lymph # (Auto) 0.9 L (1.0-4.8) th/mm3 [place] # (Auto) 1.4 H (0.0-0.9) th/mm3 APTT 22.1 L (24.3-30.1) sec Chloride 108 H (98-107) meq/L Creatinine 2.62 H (0.60-1.30) mg/dL Estimated GFR 25 L (>89) mL/min Random Glucose 128 H (74-106) mg/dL Lactic Acid (0.4-2.0) mmol/L Ammonia (11-32) mcmol/L Troponin I Less than 0.02 L (0.02-0.05) ng/mL Total Protein 8.3 H (6.4-8.2) g/dL 02/08/18 02/08/18 Range/Units 12:17 12:17 WBC (4.0-11.0) th/mm3 Neut % (Auto) (16.0-70.0) % Lymph % (Auto) (9.0-44.0) % [place] % (Auto) (0.0-8.0) % Neut # (Auto) (1.8-7.7) th/mm3 Lymph # (Auto) (1.0-4.8) th/mm3 [place] # (Auto) (0.0-0.9) th/mm3 APTT (24.3-30.1) sec Chloride (98-107) meq/L Creatinine (0.60-1.30) mg/dL Estimated GFR (>89) mL/min Random Glucose (74-106) mg/dL Lactic Acid 2.2 H (0.4-2.0) mmol/L Ammonia 36 H (11-32) mcmol/L Troponin I (0.02-0.05) ng/mL Total Protein (6.4-8.2) g/dL Short CBC 02/08/18 Range/Units 12:17 WBC 13.3 H (4.0-11.0) th/mm3 Hgb 15.6 (13.0-17.0) gm/dL Hct 46.2 (39.0-51.0) % Plt Count 193 (150-450) th/mm3 BMP 02/08/18 12:17 Sodium 139 Potassium 4.7 Chloride 108 H Carbon Dioxide 22.4 BUN 14 Creatinine 2.62 H Calcium 9.8 Cardiac Enzymes 02/08/18 02/08/18 Range/Units 12:17 12:17 Total Creatine Kinase 110 (39-308) U/L Troponin I Less than 0.02 L (0.02-0.05) ng/mL Liver Function 02/08/18 Range/Units 12:17 Total Bilirubin 0.4 (0.2-1.0) mg/dL AST 22 (15-37) U/L ALT 28 (12-78) U/L Alkaline Phosphatase 92 (45-117) U/L Albumin 4.5 (3.4-5.0) g/dL Urine 02/08/18 Range/Units 12:19 Urine Color Yellow (Yellw/Straw) Urine Clarity Clear (Clear) Urine pH 7.0 (5.0-8.5) Ur Specific [place] 1.004 (1.002-1.035) Urine Protein Negative (Neg-Trace) mg/dL Urine Glucose (UA) Negative (Negative) mg/dL <Reggie Pino B - 02/08/18 16:24> - Imaging Impressions Head CT 02/08/18 12:06 CONCLUSION: 1. Stable noncontrast head CT. No acute intracranial abnormality is identified. 2. 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 . Chest X-Ray 02/08/18 13:11 CONCLUSION: No acute cardiopulmonary abnormality is identified. <Reggie Pino - 02/08/18 16:24> Caprini VTE Risk Assessment Caprini VTE Risk Assessment: Moderate/High Risk (score >= 2) <AlvarezReggie Fuentes - 02/08/18 18:30> Caprini Risk Assessment Model: Point Value = 1 Point Value = 2 Point Value = 3 Point Value = 5 Age 41-60 Minor surgery BMI > 25 kg/m2 Swollen legs Varicose veins or History of unexplained or recurrent spontaneous Oral contraceptives or hormone replacement Sepsis (< 1 month) Serious lung disease, including pneumonia (< 1 month) Abnormal pulmonary function Acute myocardial infarction Congestive heart failure (< 1 month) History of inflammatory bowel disease Medical patient at bed rest Age 61-74 Arthroscopic surgery Major open surgery (> 45 min) Laparoscopic surgery (> 45 min) Malignancy Confined to bed (> 72 hours) Immobilizing plaster cast Central venous access Age >= 75 History of VTE Family history of VTE Factor V Leiden Prothrombin [id number] Lupus anticoagulant Anticardiolipin antibodies Elevated serum homocysteine Heparin-induced thrombocytopenia Other congenital or acquired thrombophilia Stroke (< 1 month) Elective arthroplasty Hip, pelvis, or leg fracture Acute spinal cord injury (< 1 month) <Tia Workman - 02/09/18 15:35> Point Value = 1 Point Value = 2 Point Value = 3 Point Value = 5 Age 41-60 Minor surgery BMI > 25 kg/m2 Swollen legs Varicose veins or History of unexplained or recurrent spontaneous Oral contraceptives or hormone replacement Sepsis (< 1 month) Serious lung disease, including pneumonia (< 1 month) Abnormal pulmonary function Acute myocardial infarction Congestive heart failure (< 1 month) History of inflammatory bowel disease Medical patient at bed rest Age 61-74 Arthroscopic surgery Major open surgery (> 45 min) Laparoscopic surgery (> 45 min) Malignancy Confined to bed (> 72 hours) Immobilizing plaster cast Central venous access Age >= 75 History of VTE Family history of VTE Factor V Leiden Prothrombin [id number] Lupus anticoagulant Anticardiolipin antibodies Elevated serum homocysteine Heparin-induced thrombocytopenia Other congenital or acquired thrombophilia Stroke (< 1 month) Elective arthroplasty Hip, pelvis, or leg fracture Acute spinal cord injury (< 1 month) <Reggie Pino B - 02/08/18 18:30> Prophylaxis Regimen: Total Risk Factor Score Risk Level Prophylaxis Regimen 0-1 Low Early ambulation 2 Moderate Order ONE of the following: *Sequential Compression Device (SCD) *Heparin 5000 units SQ BID 3-4 Higher Order ONE of the following medications: *Heparin 5000 units SQ TID *Enoxaparin/Lovenox 40 mg SQ daily (WT < 150 kg, CrCl > 30 mL/min) *Enoxaparin/Lovenox 30 mg SQ daily (WT < 150 kg, CrCl > 10-29 mL/min) *Enoxaparin/Lovenox 30 mg SQ BID (WT < 150 kg, CrCl > 30 mL/min) AND/OR *Sequential Compression Device (SCD) 5 or more Highest Order ONE of the following medications: *Heparin 5000 units SQ TID (Preferred with Epidurals) *Enoxaparin/Lovenox 40 mg SQ daily (WT < 150 kg, CrCl > 30 mL/min) *Enoxaparin/Lovenox 30 mg SQ daily (WT < 150 kg, CrCl > 10-29 mL/min) *Enoxaparin/Lovenox 30 mg SQ BID (WT < 150 kg, CrCl > 30 mL/min) AND *Sequential Compression Device (SCD) <Tia Workman M - 02/09/18 15:35> Total Risk Factor Score Risk Level Prophylaxis Regimen 0-1 Low Early ambulation 2 Moderate Order ONE of the following: *Sequential Compression Device (SCD) *Heparin 5000 units SQ BID 3-4 Higher Order ONE of the following medications: *Heparin 5000 units SQ TID *Enoxaparin/Lovenox 40 mg SQ daily (WT < 150 kg, CrCl > 30 mL/min) *Enoxaparin/Lovenox 30 mg SQ daily (WT < 150 kg, CrCl > 10-29 mL/min) *Enoxaparin/Lovenox 30 mg SQ BID (WT < 150 kg, CrCl > 30 mL/min) AND/OR *Sequential Compression Device (SCD) 5 or more Highest Order ONE of the following medications: *Heparin 5000 units SQ TID (Preferred with Epidurals) *Enoxaparin/Lovenox 40 mg SQ daily (WT < 150 kg, CrCl > 30 mL/min) *Enoxaparin/Lovenox 30 mg SQ daily (WT < 150 kg, CrCl > 10-29 mL/min) *Enoxaparin/Lovenox 30 mg SQ BID (WT < 150 kg, CrCl > 30 mL/min) AND *Sequential Compression Device (SCD) <PinoReggie Gina - 02/08/18 16:24> Assessment and Plan - Assessment (1) Altered mental status Code(s): R41.82 - Altered mental status, unspecified Status: Acute (2) Elevated serum creatinine Code(s): R79.89 - Other specified abnormal findings of blood chemistry Status : Acute (3) Acidosis, lactic Code(s): E87.2 - Acidosis Status: Acute (4) History of psychiatric care Code(s): Z92.89 - Personal history of other medical treatment Status: Acute (5) Seizure disorder Code(s): G40.909 - Epilepsy, unspecified, not intractable, without status epilepticus Status: Acute (6) Hypertension Code(s): I10 - Essential (primary) hypertension Status: Acute (7) Nutrition, metabolism, and development symptoms Code(s): R63.8 - Other symptoms and signs concerning food and fluid intake Status: Acute <JacintaTia M - 02/09/18 15:35> (1) Altered mental status Code(s): R41.82 - Altered mental status, unspecified Status: Acute Plan: Per EMS history obtained from family, 1 day of altered mental status -obtunded in the emergency room only arousable to sternal rubs and loud verbal command. Also per EMS history, family reported patient has states of altered mental status like this that usually self resolved. Does not answer questions appropriately but he did deny any substance use when asked Unable to contact family at this time UDS negative on admission. Alcohol level less than 3 CT head on admission was negative Ammonia 36 Ordering valproic acid, salicylates level ABG pending Will repeat ammonia in the a.m. Differential includes medication overdose, synthetic substance use, post ictal state, rhabdomyolysis, hepatic encephalopathy (2) Elevated serum creatinine Code(s): R79.89 - Other specified abnormal findings of blood chemistry Status : Acute Plan: Patient noted to have a creatinine of 2.62 on admission, BUN of 14 Creatinine from prior hospitalizations were all within normal limits CPK on admission 110, will repeat in the a.m. Received 2 L normal saline bolus in the ED Will continue normal saline IV fluids at 1.5 maintenance (3) Acidosis, lactic Code(s): E87.2 - Acidosis Status: Acute Plan: Patient noted to have a lactic acid of 2.2 on admission, WBC of 13 Received vancomycin, Zosyn 1 in the ED Blood cultures pending Repeat lactic acid was 1.0 Vital signs within normal limits, low suspicion for infectious etiology Will monitor (4) History of psychiatric care Code(s): Z92.89 - Personal history of other medical treatment Status: Acute Plan: Patient with multiple hospitalizations for altered mental status/psychiatric history Home medications include buspirone, trazodone, quetiapine Holding home medications for now (5) Seizure disorder Code(s): G40.909 - Epilepsy, unspecified, not intractable, without status epilepticus Status: Acute Plan: Per chart review, patient takes Depakote, Levetiracetam (keppra) Ordering Levetiracetam level (6) Hypertension Code(s): I10 - Essential (primary) hypertension Status: Acute Plan: Per chart review, patient takes lisinopril Holding for now. (7) Nutrition, metabolism, and development symptoms Code(s): R63.8 - Other symptoms and signs concerning food and fluid intake Status: Acute Plan: Normal saline IV fluids at 1 50 mL/h N.p.o. for now as patient is altered SCDs for DVT prophylaxis <Reggie Pino - 02/08/18 17:56> - Assessment and Plan 57-year-old male with apparent history of seizure disorder, psychiatric history brought to the emergency room by EMS for altered mental status. Patient arousable by sternal rub and verbal commands but is not answering questions appropriately. With the poor pupillary response/dilation there is a suspicion for substance use, however initial UDS was negative. Will admit to observation for further monitoring/workup. Seen and discussed with Dr. Workman <Reggie Pino - 02/08/18 18:30> - Attending Attestation The exam, history, and the medical decision-making described in the above note were completed with the assistance of the resident physician. I reviewed and agree with the findings presented. I attest that I had a [id number] encounter with the patient on the same day, and personally performed and documented my assessment and findings in the medical record. This gentleman was seen on admission with Dr. Pino. He was exhibiting very unusual behaviors. He is staring straight ahead and having dilated fixed pupil as well as being able to move his eyes was very unusual in my experience. He also exhibited unusual muscular jerking that was not a seizure but only when he would be lowering his head down to the stretcher he would jerk it a bit as it was going down in a sort of cogwheeling motion that was also exhibited in his shoulders and his arms though he had no real muscle rigidity and was relaxed once he was in a horizontal position. Based on the strangeness of this presentation I called poison control and discussed what drugs could seem to cause these sorts of problems and what workup or anticipated issues could this patient have. Based on the advice of poison control as well as the ED physician it was believed that this man probably ingested some sort of synthetic substance the poison control mentioned K2. He had nothing else found on his labs except for some dehydration. <Tia Workman - 02/09/18 15:35> <Reggie Pino - Last Filed: 02/08/18 17:56> (1) Altered mental status Qualifiers: Altered mental status type: unspecified Qualified Code(s): R41.82 - Altered mental status, unspecified <Tia Workman - Last Filed: 02/09/18 15:35> (1) Altered mental status Qualifiers: Altered mental status type: unspecified Qualified Code(s): R41.82 - Altered mental status, unspecified <Reggie Pino - Last Filed: 02/08/18 17:56> (1) Altered mental status Qualifiers: Altered mental status type: unspecified Qualified Code(s): R41.82 - Altered mental status, unspecified <Tia Workman M - Last Filed: 02/09/18 15:35> (1) Altered mental status Qualifiers: Altered mental status type: unspecified Qualified Code(s): R41.82 - Altered mental status, unspecified
[2018-02-08 16:36] LABS: ABG Base Excess -2.2 mmol/L (-2-2); ABG PCO2 37 mmHg (38-42); ABG PO2 92 mmHg (61-120)
[2018-02-08] MEDS: Sod Chloride 0.9% Inj 1,000 ML IV.CONT SCH (18:32)
[2018-02-08] MEDS ORDERED: Haloperidol Inj 5 MG/ML Ampul IV.PUSH PRN (20:59)
[2018-02-08] MEDS: Senna/Docusate Sodium 8.6/50 MG Tablet PO SCH (21:41)
[2018-02-09] MEDS: Sod Chloride 0.9% Inj 1,000 ML IV.CONT SCH ×4 (01:51→23:07)
[2018-02-09] MEDS: LORazepam 1 MG Tablet PO PRN ×3 (02:16→14:51)
[2018-02-09 07:00] LABS: Baso # (Auto) 0.1 th/mm3 (0.0-0.2); Baso % (Auto) 1.2 % (0.0-2.0); Eos # (Auto) 0.1 th/mm3 (0.0-0.4); Eos % (Auto) 0.8 % (0.0-4.0); Hematocrit 35.6 % (39.0-51.0); Hemoglobin 12.2 gm/dL (13.0-17.0); Lymph # (Auto) 1.7 th/mm3 (1.0-4.8); Lymph % (Auto) 19.3 % (9.0-44.0); Mean Corpuscular HGB Conc 34.4 % (32.0-36.0); Mean Corpuscular Hemoglobin 30.5 pg (27.0-34.0); Mean Corpuscular Volume 88.7 fL (80.0-100.0); Mean Platelet Volume 8.4 fL (7.0-11.0); Mono # (Auto) 0.9 th/mm3 (0.0-0.9); Mono % (Auto) 10.4 % (0.0-8.0); Neut % (Auto) 68.3 % (16.0-70.0); Platelet Count 138 th/mm3 (150-450); Red Blood Count 4.02 mil/mm3 (4.50-5.90); White Blood Count 8.8 th/mm3 (4.0-11.0)
[2018-02-09 07:46] LABS: Alanine Aminotransferase 22 U/L (12-78); Albumin 3.2 g/dL (3.4-5.0); Alkaline Phosphatase 74 U/L (45-117); Anion Gap 8 meq/L (5-15); Aspartate Aminotransferase 18 U/L (15-37); Blood Urea Nitrogen 20 mg/dL (7-18); Calcium 7.9 mg/dL (8.5-10.1); Carbon Dioxide 22.7 meq/L (21.0-32.0); Chloride 115 meq/L (98-107); Creatine Kinase 154 U/L (39-308); Glomerular Filtration Rate 52 mL/min (>89); Glucose,Random 78 mg/dL (74-106); Potassium 4.4 meq/L (3.5-5.1); Sodium 146 meq/L (136-145); Total Protein 6.2 g/dL (6.4-8.2)
[2018-02-09] MEDS: Senna/Docusate Sodium 8.6/50 MG Tablet PO SCH ×2 (09:09→21:23)
--- NOTE | 2018-02-09 10:05 | P.HPFP ---
History of Present Illness Primary Care Physician: No Primary Care Physician Chief Complaint: Altered mental status History of Present Illness: 57-year-old male with a history of multiple hospitalizations secondary to altered mental status/psych issues last seen normal on the night prior to admission presents with altered mental status. Patient is arousable with sternal rub and some voice commands but does not answer questions appropriately and is unable to give us any history. When asked he does deny any substance use. Daughter on scene provided medication list and brief history to EMS. Daughter was unable to be contacted in the emergency room. This gentleman did wake up and come out of his sort of "dazed" state. He started to get agitated and per advice of poison control was given some Ativan as that is evidently the drug of choice if you inject synthetics or spice. Today he seems to be moving on to stage II of the spice ingestion. According to some experts people who take spice remove all of their clothing and are still not back to normal on the second day after a serious ingestion. According to his nurse this man continually removed any garment placed over him. He is only oriented to himself and no one else and nothing else. Hopefully he will move on and spice will leave his system and he should be more normal tomorrow. Right now he has no capacity to make decisions and he is a danger to himself if he could probably run into traffic or hurt himself in other ways. Unfortunately when discussing the time course of improvement for this condition , different sources report this can take up to a week before they return more to normal. - Diagnosis (1) Altered mental status (2) Elevated serum creatinine (3) Acidosis, lactic (4) History of psychiatric care (5) Seizure disorder (6) Hypertension (7) Nutrition, metabolism, and development symptoms Inpatient Certification: I certify that the inpatient services were ordered in accordance with Medicare regulations governing the order. This includes certification that hospital inpatient services are reasonable and necessary and in the case of services not specified as inpatient-only under 42 CFR 419.22(n), that they are appropriately provided as inpatient services in accordance to with the 2-midnight benchmark under 43 CFR 412.3(e) Estimated Total Length of Stay (Days): 2 Plans for Post Hospital Care: Not yet determined Review of Systems unobtainable due to mental condition. No: other PMFSH - History History Provided By: Formal Service Waiter / EMT - Medical History Medical History: Medical History (Last Updated 02/09/18 @ 15:41 by Tia Workman MD) Psychiatric diagnosis (Acute) Hypertension (Acute) Seizure disorder (Acute) - Surgical History Surgical History: Surgical History (Last Updated 02/09/18 @ 15:41 by Tia Workman MD) Status post carotid surgery (Acute) Hx of CABG (Acute) - Tobacco History Tobacco Use In Past 30 Days: Yes (UTO) Smoking Status: Smoker, status unknown Tobacco Type: Cigarettes - Alcohol History How Often Do You Have a Drink Containing Alcohol: Unable to Obtain - Substance Use History Substance History: Unable to Obtain - Travel History Recent Travel in the [place] Within the Last 8 Weeks: No Recent Travel Out of the Country Within the Last 8 Weeks: No - Immunization History Tetanus Immunization: Unable to Assess Hx Influenza Vaccine This Season: Unable to Assess Medications and Allergies Active Medications: Active Medications Al Hydroxide/Mg Hydroxide (Milk Of Magnesia Liq) 30 ml PO Q12H PRN PRN Reason: Mild Constipation Bisacodyl (Dulcolax Supp) 10 mg RECTAL DAILY PRN PRN Reason: SEVERE CONSITIPATION Clonidine HCl (Catapres) 0.1 mg PO Q6H PRN PRN Reason: SEE LABEL COMMENTS Flumazenil (Romazecon Inj) 0.2 mg IV.PUSH Q1M PRN PRN Reason: OVERSEDATION Haloperidol Lactate (Haldol Inj) 1 mg IV.PUSH Q15M PRN PRN Reason: for severe agitation Sodium Chloride (Ns Inj) 1,000 mls @ 0 mls/hr IV.SIG BOLUS JUDY Last Infusion: 02/08/18 15:50 Dose: Infused Sodium Chloride (Ns Inj) 1,000 mls @ 0 mls/hr IV.SIG BOLUS JUDY Last Infusion: 02/08/18 15:50 Dose: Infused Sodium Chloride (Ns Inj) 1,000 mls @ 150 mls/hr IV.CONT .Q6H40M JUDY Last Admin: 02/09/18 01:51 Dose: 150 mls/hr Lactulose (Lactulose Liq) 30 ml PO DAILY PRN PRN Reason: SEVERE CONSITIPATION Lorazepam (Ativan Inj) 1 mg IV.PUSH Q4H PRN PRN Reason: AGITATION Lorazepam (Ativan) 1 mg PO Q4H PRN PRN Reason: for CIWA 8-10 Last Admin: 02/09/18 06:46 Dose: 1 mg Lorazepam (Ativan) 2 mg PO Q2H PRN PRN Reason: for CIWA 11-14 Lorazepam (Ativan Inj) 2 mg IV.PUSH Q2H PRN PRN Reason: for CIWA 11-14 Lorazepam (Ativan Inj) 2 mg IV.PUSH Q1H PRN PRN Reason: for CIWA 15-20 Lorazepam (Ativan Inj) 2 mg IV.PUSH Q15M PRN PRN Reason: for CIWA > 20 Lorazepam (Ativan Inj) 1 mg IV.PUSH Q4H PRN PRN Reason: for CIWA 8-10 Ondansetron HCl (Zofran Inj) 4 mg IV.PUSH Q6H PRN PRN Reason: NAUSEA OR VOMITING Senna/Docusate Sodium (Brooke-Colace) 1 tab PO BID JUDY Last Admin: 02/09/18 09:09 Dose: 1 tab Sennosides (Senokot) 17.2 mg PO Q12H PRN PRN Reason: Moderate Constipation Sodium Chloride (Ns Flush) 2 ml IV.FLUSH PRN PRN PRN Reason: FLUSH AFTER USING IV ACCESS Allergies Allergy/AdvReac Type Severity Reaction Status Date / Time acetaminophen AdvReac Intermediate pt has Verified 09/02/17 16:30 hepatitis c told not to take Home Medications Medication Instructions Recorded Confirmed Type buspirone 10 mg PO BID 02/08/18 02/08/18 History divalproex 250 mg PO DAILY 02/08/18 02/08/18 History levetiracetam 250 mg PO Q12H 02/08/18 02/08/18 History lisinopril 20 mg PO DAILY 02/08/18 02/08/18 History quetiapine 400 mg PO DAILY 02/08/18 02/08/18 History trazodone 300 mg PO DAILY 02/08/18 02/08/18 History Exam Vital signs: Vital Signs 02/08/18 12:06 02/08/18 12:10 02/08/18 13:00 Temperature 98.3 F Pulse Rate 106 H 89 Respiratory Rate 18 18 Blood Pressure 115/64 96/55 L Pulse Oximetry 94 L 94 L 94 L 02/08/18 13:44 02/08/18 16:00 02/08/18 18:55 Temperature 97.3 F L Pulse Rate 83 89 89 Respiratory Rate 16 18 18 Blood Pressure 96/55 L 123/76 147/89 H Pulse Oximetry 93 L 97 99 02/08/18 19:20 02/08/18 20:00 02/08/18 20:45 Temperature 98 F Pulse Rate 86 78 Respiratory Rate 18 Blood Pressure 159/108 H 148/95 H Pulse Oximetry 97 02/08/18 23:46 02/09/18 00:00 02/09/18 04:00 Temperature 98 F 97.9 F Pulse Rate 87 86 75 Respiratory Rate 16 16 Blood Pressure 133/72 136/74 Pulse Oximetry 97 98 02/09/18 08:00 Temperature 97.1 F L Pulse Rate 87 Respiratory Rate 18 Blood Pressure 139/78 Pulse Oximetry 96 Intake & Output 02/08/18 02/09/18 02/09/18 18:59 06:59 18:59 Intake Total 2350 / 2350 1360 / 1360 Balance 2350 / 2350 1360 / 1360 Weight 77.111 kg 77.2 kg Intake: IV 2350 / 2350 1000 / 1000 NS Inj 1,000 ML @ 150 mls/hr IV 1000 / 1000 .CONT .Q6H40M [facility] Rx#:[id number] NS Inj 1,000 ML @ Wide Open IV. 1999 / 1999 SIG BOLUS [facility] Rx#:[id number] Vancomycin Inj 1,000 MG In NS 250 / 250 Inj 250 ML @ 200 mls/hr IV.SIG ONCE ONE Rx#:[id number] Oral 360 / 360 Other: # Voids 2 # Bowel Movements 0 Weight On Admission 73.2 kg Narrative: GENERAL: SKIN: Warm and dry. HEAD: Atraumatic. Normocephalic. EYES: Pupils equal and round. No scleral icterus. No injection or drainage. initially dilated and fixed though mobile pupils. better today ENT: No nasal bleeding or discharge. Mucous membranes pink and moist. NECK: Trachea midline. No JVD. CARDIOVASCULAR: Regular rate and rhythm. RESPIRATORY: No accessory muscle use. Clear to auscultation. Breath sounds equal bilaterally. GASTROINTESTINAL: Abdomen soft, non-tender, nondistended. Hepatic and splenic margins not palpable. MUSCULOSKELETAL: Extremities without clubbing, cyanosis, or edema. No obvious deformities. NEUROLOGICAL: agitated today. No obvious cranial nerve deficits. Motor grossly within normal limits. Five out of 5 muscle strength in the arms and legs. uncooperative with his nurses. doesn't know anything but his name PSYCHIATRIC: Appropriate mood and affect; insight and judgment normal. Results - Labs Result diagrams: 02/09/18 06:13 02/09/18 06:13 Abnormal lab results 02/08/18 02/08/18 02/08/18 Range/Units 12:17 12:17 12:17 WBC 13.3 H (4.0-11.0) th/mm3 RBC (4.50-5.90) mil/mm3 Hgb (13.0-17.0) gm/dL Hct (39.0-51.0) % Plt Count (150-450) th/mm3 Neut % (Auto) 82.5 H (16.0-70.0) % Lymph % (Auto) 6.9 L (9.0-44.0) % Giles % (Auto) 10.2 H (0.0-8.0) % Neut # (Auto) 10.9 H (1.8-7.7) th/mm3 Lymph # (Auto) 0.9 L (1.0-4.8) th/mm3 Giles # (Auto) 1.4 H (0.0-0.9) th/mm3 APTT 22.1 L (24.3-30.1) sec ABG pCO2 (38-42) mmHg ABG Base Excess (-2-2) mmol/L ABG Methemoglobin (0-2) % Sodium (136-145) meq/L Chloride 108 H (98-107) meq/L BUN (7-18) mg/dL Creatinine 2.62 H (0.60-1.30) mg/dL Estimated GFR 25 L (>89) mL/min Random Glucose 128 H (74-106) mg/dL Lactic Acid (0.4-2.0) mmol/L Calcium (8.5-10.1) mg/dL Ammonia (11-32) mcmol/L Troponin I Less than 0.02 L (0.02-0.05) ng/mL Total Protein 8.3 H (6.4-8.2) g/dL Albumin (3.4-5.0) g/dL Lipase (73-393) U/L Valproic Acid (50-100) mcg/mL 02/08/18 02/08/18 02/08/18 Range/Units 12:17 12:17 12:17 WBC (4.0-11.0) th/mm3 RBC (4.50-5.90) mil/mm3 Hgb (13.0-17.0) gm/dL Hct (39.0-51.0) % Plt Count (150-450) th/mm3 Neut % (Auto) (16.0-70.0) % Lymph % (Auto) (9.0-44.0) % Giles % (Auto) (0.0-8.0) % Neut # (Auto) (1.8-7.7) th/mm3 Lymph # (Auto) (1.0-4.8) th/mm3 Giles # (Auto) (0.0-0.9) th/mm3 APTT (24.3-30.1) sec ABG pCO2 (38-42) mmHg ABG Base Excess (-2-2) mmol/L ABG Methemoglobin (0-2) % Sodium (136-145) meq/L Chloride (98-107) meq/L BUN (7-18) mg/dL Creatinine (0.60-1.30) mg/dL Estimated GFR (>89) mL/min Random Glucose (74-106) mg/dL Lactic Acid 2.2 H (0.4-2.0) mmol/L Calcium (8.5-10.1) mg/dL Ammonia 36 H (11-32) mcmol/L Troponin I (0.02-0.05) ng/mL Total Protein (6.4-8.2) g/dL Albumin (3.4-5.0) g/dL Lipase (73-393) U/L Valproic Acid 43 L (50-100) mcg/mL 02/08/18 02/09/18 02/09/18 Range/Units 16:23 06:13 06:13 WBC (4.0-11.0) th/mm3 RBC 4.02 L (4.50-5.90) mil/mm3 Hgb 12.2 L D (13.0-17.0) gm/dL Hct 35.6 L (39.0-51.0) % Plt Count 138 L (150-450) th/mm3 Neut % (Auto) (16.0-70.0) % Lymph % (Auto) (9.0-44.0) % Giles % (Auto) 10.4 H (0.0-8.0) % Neut # (Auto) (1.8-7.7) th/mm3 Lymph # (Auto) (1.0-4.8) th/mm3 Giles # (Auto) (0.0-0.9) th/mm3 APTT (24.3-30.1) sec ABG pCO2 37 L (38-42) mmHg ABG Base Excess -2.2 L (-2-2) mmol/L ABG Methemoglobin 2.1 H (0-2) % Sodium 146 H (136-145) meq/L Chloride 115 H (98-107) meq/L BUN 20 H (7-18) mg/dL Creatinine 1.40 H (0.60-1.30) mg/dL Estimated GFR 52 L (>89) mL/min Random Glucose (74-106) mg/dL Lactic Acid (0.4-2.0) mmol/L Calcium 7.9 L D (8.5-10.1) mg/dL Ammonia (11-32) mcmol/L Troponin I (0.02-0.05) ng/mL Total Protein 6.2 L D (6.4-8.2) g/dL Albumin 3.2 L D (3.4-5.0) g/dL Lipase (73-393) U/L Valproic Acid (50-100) mcg/mL 02/09/18 Range/Units 06:13 WBC (4.0-11.0) th/mm3 RBC (4.50-5.90) mil/mm3 Hgb (13.0-17.0) gm/dL Hct (39.0-51.0) % Plt Count (150-450) th/mm3 Neut % (Auto) (16.0-70.0) % Lymph % (Auto) (9.0-44.0) % Giles % (Auto) (0.0-8.0) % Neut # (Auto) (1.8-7.7) th/mm3 Lymph # (Auto) (1.0-4.8) th/mm3 Giles # (Auto) (0.0-0.9) th/mm3 APTT (24.3-30.1) sec ABG pCO2 (38-42) mmHg ABG Base Excess (-2-2) mmol/L ABG Methemoglobin (0-2) % Sodium (136-145) meq/L Chloride (98-107) meq/L BUN (7-18) mg/dL Creatinine (0.60-1.30) mg/dL Estimated GFR (>89) mL/min Random Glucose (74-106) mg/dL Lactic Acid (0.4-2.0) mmol/L Calcium (8.5-10.1) mg/dL Ammonia (11-32) mcmol/L Troponin I (0.02-0.05) ng/mL Total Protein (6.4-8.2) g/dL Albumin (3.4-5.0) g/dL Lipase 64 L (73-393) U/L Valproic Acid (50-100) mcg/mL Short CBC 02/08/18 02/09/18 Range/Units 12:17 06:13 WBC 13.3 H 8.8 (4.0-11.0) th/mm3 Hgb 15.6 12.2 L D (13.0-17.0) gm/dL Hct 46.2 35.6 L (39.0-51.0) % Plt Count 193 138 L (150-450) th/mm3 BMP 02/08/18 02/09/18 12:17 06:13 Sodium 139 146 H Potassium 4.7 4.4 Chloride 108 H 115 H Carbon Dioxide 22.4 22.7 BUN 14 20 H Creatinine 2.62 H 1.40 H Calcium 9.8 7.9 L D Cardiac Enzymes 02/08/18 02/08/18 02/09/18 Range/Units 12:17 12:17 06:13 Total Creatine Kinase 110 154 (39-308) U/L Troponin I Less than 0.02 L (0.02-0.05) ng/mL Liver Function 02/08/18 02/09/18 Range/Units 12:17 06:13 Total Bilirubin 0.4 0.4 (0.2-1.0) mg/dL AST 22 18 (15-37) U/L ALT 28 22 (12-78) U/L Alkaline Phosphatase 92 74 (45-117) U/L Albumin 4.5 3.2 L D (3.4-5.0) g/dL Urine 02/08/18 Range/Units 12:19 Urine Color Yellow (Yellw/Straw) Urine Clarity Clear (Clear) Urine pH 7.0 (5.0-8.5) Ur Specific [place] 1.004 (1.002-1.035) Urine Protein Negative (Neg-Trace) mg/dL Urine Glucose (UA) Negative (Negative) mg/dL - Imaging Impressions Head CT 02/08/18 12:06 CONCLUSION: 1. Stable noncontrast head CT. No acute intracranial abnormality is identified. 2. 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 . Chest X-Ray 02/08/18 13:11 CONCLUSION: No acute cardiopulmonary abnormality is identified. Caprini VTE Risk Assessment Caprini VTE Risk Assessment: Moderate/High Risk (score >= 2) Caprini Risk Assessment Model: Point Value = 1 Point Value = 2 Point Value = 3 Point Value = 5 Age 41-60 Minor surgery BMI > 25 kg/m2 Swollen legs Varicose veins or History of unexplained or recurrent spontaneous Oral contraceptives or hormone replacement Sepsis (< 1 month) Serious lung disease, including pneumonia (< 1 month) Abnormal pulmonary function Acute myocardial infarction Congestive heart failure (< 1 month) History of inflammatory bowel disease Medical patient at bed rest Age 61-74 Arthroscopic surgery Major open surgery (> 45 min) Laparoscopic surgery (> 45 min) Malignancy Confined to bed (> 72 hours) Immobilizing plaster cast Central venous access Age >= 75 History of VTE Family history of VTE Factor V Leiden Prothrombin [id number] Lupus anticoagulant Anticardiolipin antibodies Elevated serum homocysteine Heparin-induced thrombocytopenia Other congenital or acquired thrombophilia Stroke (< 1 month) Elective arthroplasty Hip, pelvis, or leg fracture Acute spinal cord injury (< 1 month) Prophylaxis Regimen: Total Risk Factor Score Risk Level Prophylaxis Regimen 0-1 Low Early ambulation 2 Moderate Order ONE of the following: *Sequential Compression Device (SCD) *Heparin 5000 units SQ BID 3-4 Higher Order ONE of the following medications: *Heparin 5000 units SQ TID *Enoxaparin/Lovenox 40 mg SQ daily (WT < 150 kg, CrCl > 30 mL/min) *Enoxaparin/Lovenox 30 mg SQ daily (WT < 150 kg, CrCl > 10-29 mL/min) *Enoxaparin/Lovenox 30 mg SQ BID (WT < 150 kg, CrCl > 30 mL/min) AND/OR *Sequential Compression Device (SCD) 5 or more Highest Order ONE of the following medications: *Heparin 5000 units SQ TID (Preferred with Epidurals) *Enoxaparin/Lovenox 40 mg SQ daily (WT < 150 kg, CrCl > 30 mL/min) *Enoxaparin/Lovenox 30 mg SQ daily (WT < 150 kg, CrCl > 10-29 mL/min) *Enoxaparin/Lovenox 30 mg SQ BID (WT < 150 kg, CrCl > 30 mL/min) AND *Sequential Compression Device (SCD) Assessment and Plan - Assessment (1) Altered mental status Code(s): R41.82 - Altered mental status, unspecified Status: Acute Plan: Per EMS history obtained from family, 1 day of altered mental status -obtunded in the emergency room only arousable to sternal rubs and loud verbal command. Also per EMS history, family reported patient has states of altered mental status like this that usually self resolved. Does not answer questions appropriately but he did deny any substance use when asked Unable to contact family at this time UDS negative on admission. Alcohol level less than 3 CT head on admission was negative Ammonia 36 Ordering valproic acid, salicylates level ABG pending Will repeat ammonia in the a.m. Differential includes medication overdose, synthetic substance use, post ictal state, rhabdomyolysis, hepatic encephalopathy when called poison control and spoke to other experts they believe his presentation is consistent with ingestion of synthetic drugs. all that can be done is supportive care at this point. (2) Elevated serum creatinine Code(s): R79.89 - Other specified abnormal findings of blood chemistry Status : Acute Plan: Patient noted to have a creatinine of 2.62 on admission, BUN of 14 Creatinine from prior hospitalizations were all within normal limits CPK on admission 110, will repeat in the a.m. Received 2 L normal saline bolus in the ED Will continue normal saline IV fluids at 1.5 maintenance he pulled out his iv so will try po now. if needed, can restart or give him a bolus (3) Acidosis, lactic Code(s): E87.2 - Acidosis Status: Acute Plan: Patient noted to have a lactic acid of 2.2 on admission, WBC of 13 Received vancomycin, Zosyn 1 in the ED Blood cultures pending Repeat lactic acid was 1.0 Vital signs within normal limits, low suspicion for infectious etiology Will monitor improved with fluids (4) History of psychiatric care Code(s): Z92.89 - Personal history of other medical treatment Status: Acute Plan: Patient with multiple hospitalizations for altered mental status/psychiatric history Home medications include buspirone, trazodone, quetiapine restart home medications. consider consulting Psychiatry once he is improved enough to have a conversation. hope his Psychiatric and seizure meds help him in the meantime (5) Seizure disorder Code(s): G40.909 - Epilepsy, unspecified, not intractable, without status epilepticus Status: Acute Plan: Per chart review, patient takes Depakote, Levetiracetam (keppra) Ordering Levetiracetam level (6) Hypertension Code(s): I10 - Essential (primary) hypertension Status: Acute Plan: Per chart review, patient takes lisinopril Holding for now. can restart as his renal fxn improved (7) Nutrition, metabolism, and development symptoms Code(s): R63.8 - Other symptoms and signs concerning food and fluid intake Status: Acute Plan: Normal saline IV fluids at 1 50 mL/h. he pulled out his iv so will try po for now. he was drinking well this am will give diet as tolerated. he passed my bedside swallow SCDs for DVT prophylaxis - Assessment and Plan 57-year-old male with apparent history of seizure disorder, psychiatric history brought to the emergency room by EMS for altered mental status. Patient arousable by sternal rub and verbal commands but is not answering questions appropriately. With the poor pupillary response/dilation there is a suspicion for substance use, however initial UDS was negative. Will admit to observation for further monitoring/workup. Seen and discussed with Dr. Workman H&P: Quality - VTE Deep Vein Thrombosis/Pulmonary Embolism Present on Admission: No (1) Altered mental status Qualifiers: Altered mental status type: unspecified Qualified Code(s): R41.82 - Altered mental status, unspecified (6) Hypertension Qualifiers: Hypertension type: essential hypertension Qualified Code(s): I10 - Essential (primary) hypertension
[2018-02-09] MEDS: Lisinopril 20 MG Tablet PO SCH (12:26)
[2018-02-09] MEDS: Divalproex 250 MG ER Tablet PO SCH (12:26)
--- NOTE | 2018-02-09 14:02 | ECG ---
Date Performed: 02/08/2018 Time Performed: 12:05:34 PTAGE: 57 years EKG: SINUS TACHYCARDIA INDETERMINATE AXIS LOW QRS VOLTAGE IN PRECORDIAL LEADS ANTERIOR MYOCARDIA L INFARCTION INFERIOR MYOCARDIAL INFARCTION ABNORMAL ECG PREVIOUS TRACING : 08/05/2017 23.54 Compared to previous tracing, Sinus rhythm is faster. R-wave progression is worse likely due to lead placement. Differences inferior infarct pa ttern is slightly more prominent. DOCTOR: Joe Chung Interpretating Date/Time 02/09/2018 14:00:43
--- NOTE | 2018-02-09 14:29 | P.PNADD ---
Addendum to Inpatient Note Additional information: Resident team received page reporting that patient had ripped out his IV and that a piece of the tubing as well as the catheter insertion into the patient's arm were missing. Nursing staff had gone through the room for greater than 30 minutes and over unable to locate the Y connector and tubing etc. Resident team went to evaluate patient. Patient unable to report what happened just claims "it hurt "was unable to tell us where the pieces of the tubing were. Induration surrounding area of IV site on left forearm. No real palpable object beneath the skin. Patient does endorse pain at the site. He has no other complaints; no nausea, abdominal pain, difficulty breathing. No bite elkins noted on IV tubing. Lungs are clear to auscultation bilaterally. Resident team spoke with radiology who sure whether there is a protocol for situations such as these. Due to pain in the arm and patient's unreliability in reporting ultrasound of the left upper extremity ordered. We will continue to monitor patient for signs of worsening breathing, abdominal pain indicating patient is either aspirated or swallowed the tubing. Patient's restraints were reapplied.
[2018-02-09] MEDS: levETIRAcetam 250 MG Tablet PO SCH ×2 (15:02→23:07)
--- NOTE | 2018-02-09 19:57 | US ---
EXAM DATE: 02/09/2018 6:50 PM EDT AGE/SEX: 57 years / Male INDICATIONS: Swelling. CLINICAL DATA: This is the patient's initial encounter. Patient reports that signs and symptoms have been present for 1 day and indicates a pain score of 2/10. MEDICAL/SURGICAL HISTORY: Hypercholesterolemia. CVA. Seizures. Alzheimer's disease. hypertensio n. bipolar. Myocardial infarction. . CABG. Right ankle surgery. Back surgery. COMPARISON: No prior exams available for comparison. FINDINGS: No abnormal fluid collections or evidence of foreign body noted. CONCLUSION: No focal sonographic abnormality. Electronically signed by: Jose G Talavera MD 02/09/2018 7:55 PM EDT
[2018-02-09] MEDS ORDERED: traZODone 100 MG Tablet PO SCH (21:00)
--- NOTE | 2018-02-09 22:05 | P.CONGI ---
History of Present Illness Consult date: 02/09/18 Consult reason: Chronic anemia, abnormal iron Chief complaint: Altered mental status, lactic acidosis History of Present Illness: Patient comfortable in bed confused unable to provide any history my information was obtained through chart review Review of Systems unobtainable due to mental condition (Patient answers no to all questions about pain shortness of breath) PMFSH - History History Provided By: Video Production Coordinator / EMT - Medical History Medical History: Medical History (Last Updated 02/09/18 @ 15:41 by Tia Workman MD) Psychiatric diagnosis (Acute) Hypertension (Acute) Seizure disorder (Acute) - Surgical History Surgical History: Surgical History (Last Updated 02/09/18 @ 15:41 by Tia Workman MD) Status post carotid surgery (Acute) Hx of CABG (Acute) - Tobacco History Tobacco Use In Past 30 Days: Yes (UTO) Smoking Status: Smoker, status unknown Tobacco Type: Cigarettes - Alcohol History How Often Do You Have a Drink Containing Alcohol: Unable to Obtain - Substance Use History Substance History: Unable to Obtain - Travel History Recent Travel in the [place] Within the Last 8 Weeks: No Recent Travel Out of the Country Within the Last 8 Weeks: No - Immunization History Tetanus Immunization: Unable to Assess Hx Influenza Vaccine This Season: Unable to Assess Medications and Allergies Active Medications: Active Medications Al Hydroxide/Mg Hydroxide (Milk Of Aminah Priest) 30 ml PO Q12H PRN PRN Reason: Mild Constipation Bisacodyl (Dulcolax Supp) 10 mg RECTAL DAILY PRN PRN Reason: SEVERE CONSITIPATION Buspirone HCl (Buspar) 10 mg PO BID [facility] Last Admin: 02/09/18 21:23 Dose: 10 mg Clonidine HCl (Catapres) 0.1 mg PO Q6H PRN PRN Reason: SEE LABEL COMMENTS Divalproex Sodium (Depakote Er) 250 mg PO DAILY [facility] Last Admin: 02/09/18 12:26 Dose: 250 mg Flumazenil (Romazecon Inj) 0.2 mg IV.PUSH Q1M PRN PRN Reason: OVERSEDATION Haloperidol Lactate (Haldol Inj) 1 mg IV.PUSH Q15M PRN PRN Reason: for severe agitation Sodium Chloride (Ns Inj) 1,000 mls @ 0 mls/hr IV.SIG BOLUS [facility] Last Infusion: 02/08/18 15:50 Dose: Infused Sodium Chloride (Ns Inj) 1,000 mls @ 0 mls/hr IV.SIG BOLUS [facility] Last Infusion: 02/08/18 15:50 Dose: Infused Sodium Chloride (Ns Inj) 1,000 mls @ 150 mls/hr IV.CONT .Q6H40M [facility] Last Admin: 02/09/18 18:29 Dose: Not Given Lactulose (Lactulose Liq) 30 ml PO DAILY PRN PRN Reason: SEVERE CONSITIPATION Levetiracetam (Keppra) 250 mg PO Q12H [facility] Last Admin: 02/09/18 15:02 Dose: 250 mg Lisinopril (Prinivil) 20 mg PO DAILY [facility] Last Admin: 02/09/18 12:26 Dose: 20 mg Lorazepam (Ativan Inj) 1 mg IV.PUSH Q4H PRN PRN Reason: AGITATION Lorazepam (Ativan) 1 mg PO Q4H PRN PRN Reason: for CIWA 8-10 Last Admin: 02/09/18 14:51 Dose: 1 mg Lorazepam (Ativan) 2 mg PO Q2H PRN PRN Reason: for CIWA 11-14 Lorazepam (Ativan Inj) 2 mg IV.PUSH Q2H PRN PRN Reason: for CIWA 11-14 Lorazepam (Ativan Inj) 2 mg IV.PUSH Q1H PRN PRN Reason: for CIWA 15-20 Lorazepam (Ativan Inj) 2 mg IV.PUSH Q15M PRN PRN Reason: for CIWA > 20 Lorazepam (Ativan Inj) 1 mg IV.PUSH Q4H PRN PRN Reason: for CIWA 8-10 Ondansetron HCl (Zofran Inj) 4 mg IV.PUSH Q6H PRN PRN Reason: NAUSEA OR VOMITING Quetiapine Fumarate (Seroquel) 400 mg PO [facility] Last Admin: 02/09/18 21:22 Dose: 400 mg Senna/Docusate Sodium (Brooke-Colace) 1 tab PO BID [facility] Last Admin: 02/09/18 21:23 Dose: 1 tab Sennosides (Senokot) 17.2 mg PO Q12H PRN PRN Reason: Moderate Constipation Sodium Chloride (Ns Flush) 2 ml IV.FLUSH PRN PRN PRN Reason: FLUSH AFTER USING IV ACCESS Trazodone HCl (Desyrel) 300 mg PO [facility] Last Admin: 02/09/18 21:22 Dose: 300 mg Allergies Allergy/AdvReac Type Severity Reaction Status Date / Time acetaminophen AdvReac Intermediate pt has Verified 09/02/17 16:30 hepatitis c told not to take Home Medications Medication Instructions Recorded Confirmed Type buspirone 10 mg PO BID 02/08/18 02/08/18 History divalproex 250 mg PO DAILY 02/08/18 02/08/18 History levetiracetam 250 mg PO Q12H 02/08/18 02/08/18 History lisinopril 20 mg PO DAILY 02/08/18 02/08/18 History quetiapine 400 mg PO DAILY 02/08/18 02/08/18 History trazodone 300 mg PO DAILY 02/08/18 02/08/18 History Exam Vital signs: Vital Signs 02/08/18 23:46 02/09/18 00:00 02/09/18 04:00 Temperature 98 F 97.9 F Pulse Rate 87 86 75 Respiratory Rate 16 16 Blood Pressure 133/72 136/74 Pulse Oximetry 97 98 02/09/18 08:00 02/09/18 09:00 02/09/18 12:00 Temperature 97.1 F L 97.8 F Pulse Rate 87 76 77 Respiratory Rate 18 18 Blood Pressure 139/78 162/73 H Pulse Oximetry 96 97 02/09/18 13:47 02/09/18 16:00 Temperature 97.9 F Pulse Rate 79 Respiratory Rate 18 Blood Pressure 163/80 H Pulse Oximetry 96 97 Intake & Output 02/09/18 02/09/18 02/10/18 06:59 18:59 06:59 Intake Total 1360 / 1360 1380 / 1380 Balance 1360 / 1360 1380 / 1380 Weight 77.2 kg Intake: IV 1000 / 1000 900 / 900 NS Inj 1,000 ML @ 150 mls/hr IV 1000 / 1000 900 / 900 .CONT .Q6H40M [facility] Rx#:[id number] Oral 360 / 360 480 / 480 Other: # Voids 2 4 # Bowel Movements 0 1 - Constitutional no acute distress - Routine HEENT Exam Head: Present: normocephalic, atraumatic Eye: Present: EOMI ENT: Present: mucous membranes moist - Routine Neck Exam Present: supple - Routine Respiratory Exam Present: CTA bilaterally - Routine Cardiovascular Exam Present: RRR, S1, S2 - Routine Abdominal Exam Present: soft, normoactive bowel sounds. Absent: tenderness, distended, rebound , guarding - Routine Extremities Exam Absent: cyanosis, clubbing - Routine Skin Exam Present: dry, warm - Routine Neurological Exam Present: alert. Absent: oriented X3 Results - Labs CBC & Chem 7: 02/09/18 06:13 02/09/18 06:13 Labs: Laboratory Results - last 24 hr 02/09/18 02/09/18 02/09/18 06:13 06:13 06:13 WBC 8.8 RBC 4.02 L Hgb 12.2 L D Hct 35.6 L MCV 88.7 MCH 30.5 MCHC 34.4 RDW 14.0 Plt Count 138 L MPV 8.4 Neut % (Auto) 68.3 Lymph % (Auto) 19.3 [place] % (Auto) 10.4 H Eos % (Auto) 0.8 Baso % (Auto) 1.2 Neut # (Auto) 6.0 Lymph # (Auto) 1.7 [place] # (Auto) 0.9 Eos # (Auto) 0.1 Baso # (Auto) 0.1 WBC Differential . Differential Comment Auto diff final Sodium 146 H Potassium 4.4 Chloride 115 H Carbon Dioxide 22.7 Anion Gap 8 BUN 20 H Creatinine 1.40 H Estimated GFR 52 L POC Glucose Random Glucose 78 Calcium 7.9 L D Total Bilirubin 0.4 AST 18 ALT 22 Alkaline Phosphatase 74 Ammonia 30 Total Creatine Kinase 154 Total Protein 6.2 L D Albumin 3.2 L D Lipase 02/09/18 02/09/18 02/09/18 06:13 08:05 12:07 WBC RBC Hgb Hct MCV MCH MCHC RDW Plt Count MPV Neut % (Auto) Lymph % (Auto) [place] % (Auto) Eos % (Auto) Baso % (Auto) Neut # (Auto) Lymph # (Auto) [place] # (Auto) Eos # (Auto) Baso # (Auto) WBC Differential Differential Comment Sodium Potassium Chloride Carbon Dioxide Anion Gap BUN Creatinine Estimated GFR POC Glucose 90 74 Random Glucose Calcium Total Bilirubin AST ALT Alkaline Phosphatase Ammonia Total Creatine Kinase Total Protein Albumin Lipase 64 L 02/09/18 17:32 WBC RBC Hgb Hct MCV MCH MCHC RDW Plt Count MPV Neut % (Auto) Lymph % (Auto) [place] % (Auto) Eos % (Auto) Baso % (Auto) Neut # (Auto) Lymph # (Auto) [place] # (Auto) Eos # (Auto) Baso # (Auto) WBC Differential Differential Comment Sodium Potassium Chloride Carbon Dioxide Anion Gap BUN Creatinine Estimated GFR POC Glucose 81 Random Glucose Calcium Total Bilirubin AST ALT Alkaline Phosphatase Ammonia Total Creatine Kinase Total Protein Albumin Lipase - Imaging Impressions Upper Extremity Ultrasound 02/09/18 00:00 CONCLUSION: No focal sonographic abnormality. Assessment and Plan - Plan Patient with altered mental state with psychiatric history On presentation his creatinine was over 2 suggesting acute renal failure with probably dehydration With rehydration we noted the development of mild anemia No iron studies are noted at this point and so I am unable to verify iron deficiency No obvious source or cause of bleeding at this point We will monitor his labs and obtain iron studies Further recommendations shall depend on his hospital course
[2018-02-10] MEDS: Sod Chloride 0.9% Inj 1,000 ML IV.CONT SCH ×2 (06:38→11:27)
[2018-02-10 06:46] LABS: Baso % (Auto) 0.7 % (0.0-2.0); Eos # (Auto) 0.1 th/mm3 (0.0-0.4); Eos % (Auto) 2.2 % (0.0-4.0); Hemoglobin 13.5 gm/dL (13.0-17.0); Lymph # (Auto) 2.2 th/mm3 (1.0-4.8); Lymph % (Auto) 38.5 % (9.0-44.0); Mean Corpuscular HGB Conc 33.7 % (32.0-36.0); Mean Corpuscular Hemoglobin 30.3 pg (27.0-34.0); Mean Corpuscular Volume 89.9 fL (80.0-100.0); Mean Platelet Volume 8.9 fL (7.0-11.0); Mono # (Auto) 0.7 th/mm3 (0.0-0.9); Neut # (Auto) 2.6 th/mm3 (1.8-7.7); Neut % (Auto) 46.6 % (16.0-70.0); Platelet Count 147 th/mm3 (150-450); Red Blood Count 4.45 mil/mm3 (4.50-5.90); White Blood Count 5.6 th/mm3 (4.0-11.0)
[2018-02-10 07:14] LABS: Calcium 8.7 mg/dL (8.5-10.1); Carbon Dioxide 23.1 meq/L (21.0-32.0); Potassium 3.9 meq/L (3.5-5.1)
[2018-02-10] MEDS: Senna/Docusate Sodium 8.6/50 MG Tablet PO SCH (08:33)
[2018-02-10] MEDS: Lisinopril 20 MG Tablet PO SCH (08:33)
[2018-02-10] MEDS: Divalproex 250 MG ER Tablet PO SCH (08:33)
[2018-02-10 09:35] LABS: Amphetamine Urine With Conf Neg (Neg); Benzodiazepine Urine With Conf Neg (Neg)
[2018-02-10] MEDS: levETIRAcetam 250 MG Tablet PO SCH (10:17)
--- NOTE | 2018-02-10 13:39 | P.PNFP ---
Subjective Interval history: Overnight patient pulled out his peripheral IV, the night team was concerned that a piece of IV may have still been inserted so a ultrasound was ordered which showed no foreign body. Patient saying this morning he feels back to his normal self. He is oriented to self and place but not to time. Patient states that if we do not discharge him today that he will leave AMA. <Reggie Pino - 02/10/18 14:29> Results - Labs Result diagrams: 02/10/18 04:26 02/10/18 04:26 <Tia Workman - 02/12/18 16:49> Abnormal lab results 02/10/18 02/10/18 Range/Units 04:26 04:26 RBC 4.45 L (4.50-5.90) mil/mm3 Plt Count 147 L (150-450) th/mm3 [place] % (Auto) 12.0 H (0.0-8.0) % Chloride 108 H (98-107) meq/L Estimated GFR 78 L (>89) mL/min Random Glucose 65 L (74-106) mg/dL Short CBC 02/10/18 Range/Units 04:26 WBC 5.6 (4.0-11.0) th/mm3 Hgb 13.5 (13.0-17.0) gm/dL Hct 40.0 (39.0-51.0) % Plt Count 147 L (150-450) th/mm3 BMP 02/10/18 04:26 Sodium 141 Potassium 3.9 Chloride 108 H Carbon Dioxide 23.1 BUN 14 Creatinine 0.99 Calcium 8.7 D <Reggie Pino - 02/10/18 13:39> - Imaging Impressions Upper Extremity Ultrasound 02/09/18 00:00 CONCLUSION: No focal sonographic abnormality. <Reggie Pino - 02/10/18 13:39> Physical Exam Vital signs: Vital Signs 02/09/18 13:47 02/09/18 16:00 02/09/18 20:00 Temperature 97.9 F 97.9 F Pulse Rate 79 81 Respiratory Rate 18 18 Blood Pressure 163/80 H 135/83 Pulse Oximetry 96 97 98 02/09/18 21:35 02/10/18 00:00 02/10/18 04:00 Temperature 97.9 F 98 F Pulse Rate 71 78 82 Respiratory Rate 18 16 Blood Pressure 138/77 99/61 L Pulse Oximetry 94 L 92 L 02/10/18 08:00 02/10/18 12:00 Temperature 98.2 F 98.4 F Pulse Rate 77 93 H Respiratory Rate 17 17 Blood Pressure 119/69 110/72 Pulse Oximetry 92 L 96 Intake & Output 02/09/18 02/10/18 02/10/18 18:59 06:59 18:59 Intake Total 1380 / 1380 920 / 920 Balance 1380 / 1380 920 / 920 Weight 73.8 kg Intake: IV 900 / 900 NS Inj 1,000 ML @ 150 mls/hr IV 900 / 900 .CONT .Q6H40M [facility] Rx#:[id number] Oral 480 / 480 920 / 920 Other: # Voids 4 5 # Bowel Movements 1 <Reggie Pino - 02/10/18 13:39> Narrative: GENERAL: Well-developed, well-nourished patient lying in bed in no acute distress. Answering questions appropriately. SKIN: Warm and dry. HEAD: Atraumatic. Normocephalic. EYES: Pupils equal and round. No scleral icterus. No injection or drainage. initially dilated and fixed though mobile pupils. better today ENT: No nasal bleeding or discharge. Mucous membranes pink and moist. NECK: Trachea midline. No JVD. CARDIOVASCULAR: Regular rate and rhythm. RESPIRATORY: No accessory muscle use. Clear to auscultation. Breath sounds equal bilaterally. GASTROINTESTINAL: Abdomen soft, non-tender, nondistended. Hepatic and splenic margins not palpable. MUSCULOSKELETAL: Extremities without clubbing, cyanosis, or edema. No obvious deformities. NEUROLOGICAL: Not agitated during exam. No obvious cranial nerve deficits. Motor grossly within normal limits. Five out of 5 muscle strength in the arms and legs. PSYCHIATRIC: Appropriate mood and affect; insight and judgment normal. <Reggie Pino - 02/10/18 14:29> - Urinary Catheter Management Straight Cath placed during this visit: no <Tia Workman - 02/11/18 13:24> yes <Reggie Pino - 02/10/18 14:29> Reason for continuing: Not indwelling catheter <Reggie Pino - 02/10/18 13 :39> Insertion date: 02/08/18 <Reggie Pino - 02/10/18 13:39> Insertion time: 12:20 <Reggie Pino - 02/10/18 13:39> Assessment and Plan - Assessment (1) Altered mental status Code(s): R41.82 - Altered mental status, unspecified Status: Acute (2) Elevated serum creatinine Code(s): R79.89 - Other specified abnormal findings of blood chemistry Status : Acute (3) Acidosis, lactic Code(s): E87.2 - Acidosis Status: Acute (4) History of psychiatric care Code(s): Z92.89 - Personal history of other medical treatment Status: Acute (5) Seizure disorder Code(s): G40.909 - Epilepsy, unspecified, not intractable, without status epilepticus Status: Acute (6) Hypertension Code(s): I10 - Essential (primary) hypertension Status: Acute (7) Nutrition, metabolism, and development symptoms Code(s): R63.8 - Other symptoms and signs concerning food and fluid intake Status: Acute <Tia Workman Antonio - 02/12/18 16:49> (1) Altered mental status Code(s): R41.82 - Altered mental status, unspecified Status: Acute Plan: Per EMS history obtained from family, 1 day of altered mental status -obtunded in the emergency room only arousable to sternal rubs and loud verbal command. Also per EMS history, family reported patient has states of altered mental status like this that usually self resolved. Does not answer questions appropriately but he did deny any substance use when asked Unable to contact family at this time UDS negative on admission. Alcohol level less than 3 CT head on admission was negative Ammonia 36, repeat of 30 ABG normal when called poison control and spoke to other experts they believe his presentation is consistent with ingestion of synthetic drugs. all that can be done is supportive care at this point. Patient appears to no longer be altered at this time. Daughter has been contacted and case management is helping her arrange transportation for the patient to return home with his daughter. No further workup needed at this time (2) Elevated serum creatinine Code(s): R79.89 - Other specified abnormal findings of blood chemistry Status : Acute Plan: Patient noted to have a creatinine of 2.62 on admission, BUN of 14 Creatinine from prior hospitalizations were all within normal limits CPK on admission 110, will repeat in the a.m. Received 2 L normal saline bolus in the ED Was on 1.5 maintenance but patient pulled out his IV on 02/09 Creatinine now normalized (3) Acidosis, lactic Code(s): E87.2 - Acidosis Status: Acute Plan: Patient noted to have a lactic acid of 2.2 on admission, WBC of 13 Received vancomycin, Zosyn 1 in the ED Blood cultures no growth to date Repeat lactic acid was 1.0 Vital signs within normal limits, low suspicion for infectious etiology Will monitor improved with fluids (4) History of psychiatric care Code(s): Z92.89 - Personal history of other medical treatment Status: Acute Plan: Patient with multiple hospitalizations for altered mental status/psychiatric history Home medications include buspirone, trazodone, quetiapine restarted home medications and tolerated well. Encourage patient follow-up primary doctor after discharge (5) Seizure disorder Code(s): G40.909 - Epilepsy, unspecified, not intractable, without status epilepticus Status: Acute Plan: Per chart review, patient takes Depakote, Levetiracetam (keppra) Restarted his medications (6) Hypertension Code(s): I10 - Essential (primary) hypertension Status: Acute Plan: Per chart review, patient takes lisinopril (7) Nutrition, metabolism, and development symptoms Code(s): R63.8 - Other symptoms and signs concerning food and fluid intake Status: Acute Plan: Normal saline IV fluids at 1 50 mL/h. he pulled out his iv so will try po for now. will give diet as tolerated. he passed my bedside swallow SCDs for DVT prophylaxis <Reggie Pino - 02/10/18 14:20> - Assessment and Plan 57-year-old male with apparent history of seizure disorder, psychiatric history brought to the emergency room by EMS for altered mental status. Patient arousable by sternal rub and verbal commands but is not answering questions appropriately. With the poor pupillary response/dilation there is a suspicion for substance use, however initial UDS was negative. Was admitted to observation and treated with supportive care. Patient appears to be no longer altered on 02/10. Working with case management to arrange transportation back to home. Discussed with Dr. Workman <Reggie Pino - 02/10/18 14:29> - Attending Attestation The exam, history, and the medical decision-making described in the above note were completed with the assistance of the resident physician. I reviewed and agree with the findings presented. I attest that I had a [id number] encounter with the patient on the same day, and personally performed and documented my assessment and findings in the medical record. Thankfully and amazingly he managed to get over his synthetic drug abuse. He showed some classic signs of first being completely "dazed" and then going through a phase where he wanted to be naked and run in the [place] but he was restrained so he was unable to do so. And then now he is back to his normal self. <Tia Workman M - 02/11/18 13:24> <Reggie Pino B - Last Filed: 02/10/18 14:20> (1) Altered mental status Qualifiers: Altered mental status type: unspecified Qualified Code(s): R41.82 - Altered mental status, unspecified (6) Hypertension Qualifiers: Hypertension type: essential hypertension Qualified Code(s): I10 - Essential (primary) hypertension <Tia Workman M - Last Filed: 02/12/18 16:49> (1) Altered mental status Qualifiers: Altered mental status type: unspecified Qualified Code(s): R41.82 - Altered mental status, unspecified (6) Hypertension Qualifiers: Hypertension type: essential hypertension Qualified Code(s): I10 - Essential (primary) hypertension <Reggie Pino B - Last Filed: 02/10/18 14:20> (1) Altered mental status Qualifiers: Altered mental status type: unspecified Qualified Code(s): R41.82 - Altered mental status, unspecified (6) Hypertension Qualifiers: Hypertension type: essential hypertension Qualified Code(s): I10 - Essential (primary) hypertension <Tia Workman M - Last Filed: 02/12/18 16:49> (1) Altered mental status Qualifiers: Altered mental status type: unspecified Qualified Code(s): R41.82 - Altered mental status, unspecified (6) Hypertension Qualifiers: Hypertension type: essential hypertension Qualified Code(s): I10 - Essential (primary) hypertension
== END 2018-02-10 17:23 | disposition home or self-care (01) ==
LOC: NEPC 12:03 → NEDA 16:32 → N04 18:14
PROVIDERS: ADMIT Family Medicine; ATTEND Family Medicine

== ENCOUNTER 2018-03-03 15:54 | Inpatient (IN) ==
[2018-03-03] MEDS ORDERED: Vancomycin Inj 1,200 MG in Sodium Chlor 0.9% Inj 250 ML IV.SIG STA (16:07)
[2018-03-03] MEDS ORDERED: Piperacil/Tazo 4.5 GM Premix 4.5 GM/100 ML BAG IV.SIG STA (16:07)
[2018-03-03] MEDS: Sod Chloride 0.9% Inj 1,000 ML IV.SIG SCH ×2 (16:17→16:36)
[2018-03-03 16:20] LABS: Baso % (Auto) 0.6 % (0.0-2.0); Eos % (Auto) 0.2 % (0.0-4.0); Hematocrit 36.9 % (39.0-51.0); Hemoglobin 12.4 gm/dL (13.0-17.0); Lymph # (Auto) 0.7 th/mm3 (1.0-4.8); Lymph % (Auto) 10.1 % (9.0-44.0); Mean Corpuscular HGB Conc 33.7 % (32.0-36.0); Mean Corpuscular Hemoglobin 29.7 pg (27.0-34.0); Mean Corpuscular Volume 88.1 fL (80.0-100.0); Mean Platelet Volume 9.2 fL (7.0-11.0); Mono # (Auto) 0.3 th/mm3 (0.0-0.9); Mono % (Auto) 3.8 % (0.0-8.0); Neut # (Auto) 5.7 th/mm3 (1.8-7.7); Neut % (Auto) 85.3 % (16.0-70.0); Platelet Count 158 th/mm3 (150-450); Red Blood Count 4.19 mil/mm3 (4.50-5.90); Red Cell Distribution Width 14.6 % (11.6-17.2); White Blood Count 6.7 th/mm3 (4.0-11.0)
--- NOTE | 2018-03-03 16:29 | XR ---
EXAM DATE: 03/03/2018 4:27 PM EDT AGE/SEX: 57 years / Male INDICATIONS: Altered mental status. Shortness of breath. CLINICAL DATA: This is the patient's initial encounter. Patient reports that signs and symptoms have been present for 1 day and indicates a pain score of Nonresponsive. MEDICAL/SURGICAL HISTORY: Non-responsive. Non-responsive. COMPARISON: C, CHEST 1V SINGLE AP, 02/08/2018. . FINDINGS: Median sternotomy wires are noted status post cardiac surgery. The heart is stable. The pulmonary vas cular pattern is normal. The lungs are clear. CONCLUSION: No acute cardiopulmonary disease. Electronically signed by: Mariusz Cool MD 03/03/2018 4:28 PM EDT
[2018-03-03 16:32] LABS: Chloride 117 meq/L (98-107); Potassium 6.2 meq/L (3.5-5.1); Sodium 149 meq/L (136-145)
[2018-03-03 16:37] LABS: Calcium 8.2 mg/dL (8.5-10.1)
[2018-03-03 16:38] LABS: Activated Partial Thrombo Time 21.2 sec (24.3-30.1); Albumin 3.5 g/dL (3.4-5.0); Anion Gap 17 meq/L (5-15); Blood Urea Nitrogen 32 mg/dL (7-18); Carbon Dioxide 14.9 meq/L (21.0-32.0); Glucose,Random 88 mg/dL (74-106); INR 1.1 Ratio; Prothrombin Time 11.5 sec (9.8-11.6)
[2018-03-03 16:41] LABS: Alanine Aminotransferase 25 U/L (12-78); Aspartate Aminotransferase 18 U/L (15-37); Glomerular Filtration Rate 16 mL/min (>89)
[2018-03-03 16:44] LABS: Alkaline Phosphatase 80 U/L (45-117); Creatine Kinase 143 U/L (39-308)
[2018-03-03 16:52] LABS: Thyroid Stimulating Hormone 0.436 uIU/mL (0.358-3.740)
[2018-03-03] MEDS ORDERED: Sod Chloride 0.9% Inj 1,000 ML IV.SIG SCH (17:00)
[2018-03-03] MEDS ORDERED: Haloperidol Inj 5 MG/ML Ampul IV.PUSH ONE (17:05)
[2018-03-03] MEDS ORDERED: Haloperidol Inj 5 MG/ML Ampul IM ONE (17:50)
[2018-03-03 18:05] LABS: Bilirubin,Urine Negative (Negative); Clarity,Urine Clear (Clear); Color,Urine Yellow (Yellw/Straw); Glucose,Urine (UA) Negative (Negative); Leukocyte Esterase,Urine Negative (Negative); Nitrite,Urine Negative (Negative); Specific Gravity,Urine 1.025 (1.002-1.035); Urobilinogen,Urine 0.2 mg/dL (Less than 2)
[2018-03-03 18:10] LABS: RBC,Urine 0-3 /hpf (0-3); Squamous Epithelial Cell,Urine 0-5 /hpf (0-5); WBC,Urine 0-5 /hpf (0-5)
[2018-03-03 18:11] LABS: Amorphous Sediment,Urine Rare /hpf; Bacteria,Urine Few /hpf; Calcium Oxalate Crystals,Urine Rare /hpf; Hyaline Casts,Urine 0-3 /lpf (0-3); Mucus,Urine Few /lpf (Occasional)
[2018-03-03 18:12] LABS: Amphetamine Screen,Urine Neg (Neg)
[2018-03-03 18:13] LABS: Barbiturate Screen,Urine Neg (Neg); Cannabinoid Screen,Urine Pos (Neg); Cocaine Screen,Urine Neg (Neg)
[2018-03-03 18:27] LABS: Opiate Screen,Urine Neg (Neg)
--- NOTE | 2018-03-03 20:03 | ED ---
HPI General Chief Complaint: Altered Mental Status Stated Complaint: AMS Time Seen by Provider: 03/03/18 15:56 Source: EMS Mode of arrival: EMS Limitations: altered mental status History of Present Illness HPI narrative: Patient is a 57-year-old male, past medical history significant for seizure disorder, who presents with complaint of altered mental status. He was found down outside by family. Is unknown how long he was outside. EMS states that on their arrival they found him hot and without sweats production. He was tachycardic and hypotensive at which time they applied ice packs to his groin and axilla started IV fluids. They gave him 0.4 mg of Narcan to which he did not respond. They state that he has started to come around mentally more while in route. Here the patient is unable to provide any history but does mumble. complaint: altered mental status Onset (ago): unknown Severity: severe Consistency of symptoms: constant Context: seizure disorder Treatments prior to arrival: IV fluid Related Data Home Medications Medication Instructions Recorded Confirmed divalproex 500 mg PO HS 02/08/18 03/03/18 levetiracetam 250 mg PO Q12H 02/08/18 03/03/18 lisinopril 10 mg PO DAILY 02/08/18 03/03/18 quetiapine 800 mg PO HS 02/08/18 03/03/18 trazodone 300 mg PO HS 02/08/18 03/03/18 atenolol 12.5 mg PO DAILY 03/03/18 03/03/18 baclofen 10 mg PO QID 03/03/18 03/03/18 duloxetine 60 mg PO DAILY 03/03/18 03/03/18 Allergies Allergy/AdvReac Type Severity Reaction Status Date / Time acetaminophen AdvReac Intermediate pt has Verified 02/19/18 03:02 hepatitis c told not to take Review of Systems ROS Unobtainable ROS Unobtainable: unobtainable due to mental status PMFSH Medical History Medical History Psychiatric diagnosis (Acute) Hypertension (Acute) Seizure disorder (Acute) Chronic pain (Acute) Surgical History Surgical History Status post carotid surgery (Acute) Hx of CABG (Acute) Social History Social History Substance History: Unable to Obtain Smoking Status: Smoker, status unknown Tobacco Type: Cigarettes How Often Do You Have a Drink Containing Alcohol: Unable to Obtain Recent Travel in [facility] within the Last 8 Weeks: No Recent Out of Country Travel within the Last 8 Weeks: No Immunization History Tetanus Immunization: Unsure Hx Influenza Vaccine This Season: Unable to Assess Exam Narrative Exam Narrative: GENERAL: Ill-appearing male SKIN: Focused skin assessment warm with some diaphoresis. HEAD: Atraumatic. Normocephalic. EYES: Pupils equal and round. No scleral icterus. No injection or drainage. ENT: No nasal bleeding or discharge. Mucous membranes pink and dry. NECK: Trachea midline. No JVD. CARDIOVASCULAR: Tachycardic but regular. No murmur appreciated. Intact and equal peripheral pulses. RESPIRATORY: No accessory muscle use. Clear to auscultation. Breath sounds equal bilaterally. GASTROINTESTINAL: Abdomen soft, non-tender, nondistended. Hepatic and splenic margins not palpable. MUSCULOSKELETAL: No obvious deformities. No clubbing. No cyanosis. No edema. NEUROLOGICAL: Awake. GCS 8-9 (E=4, V = 1-2, M = 4) No obvious cranial nerve deficits. Moving all 4 extremities. No rigidity. PSYCHIATRIC: Unable t assess Course Initial Documented Vital Signs Temperature 104.2 F H 03/03/18 15:54 Pulse Rate 112 H 03/03/18 15:54 Respiratory Rate 20 03/03/18 15:54 Blood Pressure 81/52 L 03/03/18 15:54 Pulse Oximetry 96 03/03/18 15:54 Last Documented Vital Signs Temperature 98.1 F 03/03/18 19:34 Pulse Rate 76 03/03/18 20:24 Respiratory Rate 18 03/03/18 20:24 Blood Pressure 149/83 H 03/03/18 20:24 Pulse Oximetry 98 03/03/18 20:24 Critical Care Time Critical Care Time: Yes Total Critical Care Time: 45 Attestation: Aggregate critical care time was 45 minutes. Time to perform other separately billable procedures was not included in the critical care time. My time did not include minutes spent treating any other patients simultaneously or on activities that did not directly contribute to the patient's treatment. The services I provided to this patient were to treat and/or prevent clinically significant deterioration that could result in: , disability. I provided critical care services requiring my management, as noted below: Chart data review, documentation time, medication orders and management, vital sign assessments/reviewing monitor data, ordering and reviewing lab tests, ordering and interpreting/reviewing x-rays and diagnostic studies, care of the patient and discussion of the patient with the admitting physicians. Medical Decision Making MDM Narrative Medical decision making narrative: Patient is a 57-year-old male who presents with complaint of altered mental status. On arrival his GCS was 8 and 9, he was tachycardic, hypotensive, and febrile. Ice packs were immediately placed to groin and bilateral axilla with a cooling blanket to which his temperature responded well. He was also given cooled a IV fluids. Blood pressure and heart rate did respond to IV fluids and Levophed was not needed for his care. EKG showed sinus tachycardia but no acute ischemic changes. Labs reveal acute renal failure with lactic acidosis with no leukocytosis. His GCS improved with improvement in his temperature and blood pressure (GCS 10 -12; E=4, V = 2-3, M = 4-5) and he was given haldol for his agitation so that CT could be obtained. He likely suffered from heat stroke/toxic ingestion (such as MDMA). He has been admitted to Dr Ledbetter, equipment engineer eligibility consultant, for further evaluation and management. Medical Screen Exam Complete: Yes Emergency Medical Condition: Yes Differential Diagnosis Differential Diagnosis: Differential diagnosis includes but is not limited to hypothermia, heatstroke, rhabdomyolysis, toxic ingestion, sepsis. Medical Records Medical records reviewed: Yes I reviewed the patient's medical records. Lab Data Lab results reviewed: Yes I reviewed the patient's lab results. Result diagrams: 03/03/18 16:00 03/03/18 16:00 Lab Results 03/03/18 03/03/18 03/03/18 Range/Units 16:00 16:00 16:00 CBC w Diff WBC (4.0-11.0) th/mm3 RBC (4.50-5.90) mil/mm3 Hgb (13.0-17.0) gm/dL Hct (39.0-51.0) % MCV (80.0-100.0) fL MCH (27.0-34.0) pg MCHC (32.0-36.0) % RDW (11.6-17.2) % Plt Count (150-450) th/mm3 MPV (7.0-11.0) fL Neut % (Auto) (16.0-70.0) % Lymph % (Auto) (9.0-44.0) % Louisa % (Auto) (0.0-8.0) % Eos % (Auto) (0.0-4.0) % Baso % (Auto) (0.0-2.0) % Neut # (Auto) (1.8-7.7) th/mm3 Lymph # (Auto) (1.0-4.8) th/mm3 Louisa # (Auto) (0.0-0.9) th/mm3 Eos # (Auto) (0.0-0.4) th/mm3 Baso # (Auto) (0.0-0.2) th/mm3 WBC Differential Differential Comment PT 11.5 (9.8-11.6) sec INR 1.1 Ratio APTT 21.2 L (24.3-30.1) sec Sodium (136-145) meq/L Potassium (3.5-5.1) meq/L Chloride (98-107) meq/L Carbon Dioxide (21.0-32.0) meq/L Anion Gap (5-15) meq/L BUN (7-18) mg/dL Creatinine (0.60-1.30) mg/dL Estimated GFR (>89) mL/min Random Glucose (74-106) mg/dL Lactic Acid 8.4 H* (0.4-2.0) mmol/L Calcium (8.5-10.1) mg/dL Total Bilirubin (0.2-1.0) mg/dL AST (15-37) U/L ALT (12-78) U/L Alkaline Phosphatase (45-117) U/L Ammonia (11-32) mcmol/L Total Creatine Kinase (39-308) U/L Troponin I (0.02-0.05) ng/mL Total Protein (6.4-8.2) g/dL Albumin (3.4-5.0) g/dL TSH (0.358-3.740) uIU/mL Urine Color (Yellw/Straw) Urine Clarity (Clear) Urine pH (5.0-8.5) Ur Specific [place] (1.002-1.035) Urine Protein (Neg-Trace) mg/dL Urine Glucose (UA) (Negative) mg/dL Urine Ketones (Negative) mg/dL Urine Occult Blood (Negative) Urine Nitrate (Negative) Urine Bilirubin (Negative) Urine Urobilinogen (Less than 2) mg/dL Ur Leukocyte Esterase (Negative) Urine RBC (0-3) /hpf Urine WBC (0-5) /hpf Ur Squamous Epith Cells (0-5) /hpf Calcium Oxalate Crystal (None) /hpf Amorphous Sediment (None) /hpf Urine Bacteria (None) /hpf Hyaline Casts (0-3) /lpf Urine Mucus (Occasional) /lpf Micro UA Comment Ur Microscopic Review Urine Culture Comments Salicylates 5.5 (2.8-20.0) mg/dL Urine Opiates Screen (Neg) Acetaminophen (10.0-30.0) mcg/mL Ur Barbiturates Screen (Neg) Valproic Acid (50-100) mcg/mL Ur Amphetamines Screen (Neg) U Benzodiazepines Scrn (Neg) Urine Cocaine Screen (Neg) U Cannabinoids Screen (Neg) Serum Alcohol (0-5) mg/dL 03/03/18 03/03/18 03/03/18 Range/Units 16:00 16:00 16:00 CBC w Diff Auto diff final WBC 6.7 (4.0-11.0) th/mm3 RBC 4.19 L (4.50-5.90) mil/mm3 Hgb 12.4 L (13.0-17.0) gm/dL Hct 36.9 L (39.0-51.0) % MCV 88.1 (80.0-100.0) fL MCH 29.7 (27.0-34.0) pg MCHC 33.7 (32.0-36.0) % RDW 14.6 (11.6-17.2) % Plt Count 158 (150-450) th/mm3 MPV 9.2 (7.0-11.0) fL Neut % (Auto) 85.3 H (16.0-70.0) % Lymph % (Auto) 10.1 (9.0-44.0) % Louisa % (Auto) 3.8 (0.0-8.0) % Eos % (Auto) 0.2 (0.0-4.0) % Baso % (Auto) 0.6 (0.0-2.0) % Neut # (Auto) 5.7 (1.8-7.7) th/mm3 Lymph # (Auto) 0.7 L (1.0-4.8) th/mm3 Louisa # (Auto) 0.3 (0.0-0.9) th/mm3 Eos # (Auto) 0.0 (0.0-0.4) th/mm3 Baso # (Auto) 0.0 (0.0-0.2) th/mm3 WBC Differential . Differential Comment . PT (9.8-11.6) sec INR Ratio APTT (24.3-30.1) sec Sodium 149 H (136-145) meq/L Potassium 6.2 H (3.5-5.1) meq/L Chloride 117 H (98-107) meq/L Carbon Dioxide 14.9 L (21.0-32.0) meq/L Anion Gap 17 H (5-15) meq/L BUN 32 H (7-18) mg/dL Creatinine 3.90 H (0.60-1.30) mg/dL Estimated GFR 16 L (>89) mL/min Random Glucose 88 (74-106) mg/dL Lactic Acid (0.4-2.0) mmol/L Calcium 8.2 L (8.5-10.1) mg/dL Total Bilirubin 0.4 (0.2-1.0) mg/dL AST 18 (15-37) U/L ALT 25 (12-78) U/L Alkaline Phosphatase 80 (45-117) U/L Ammonia (11-32) mcmol/L Total Creatine Kinase 143 (39-308) U/L Troponin I Less than 0.02 L (0.02-0.05) ng/mL Total Protein 7.0 (6.4-8.2) g/dL Albumin 3.5 (3.4-5.0) g/dL TSH 0.436 (0.358-3.740) uIU/mL Urine Color (Yellw/Straw) Urine Clarity (Clear) Urine pH (5.0-8.5) Ur Specific [place] (1.002-1.035) Urine Protein (Neg-Trace) mg/dL Urine Glucose (UA) (Negative) mg/dL Urine Ketones (Negative) mg/dL Urine Occult Blood (Negative) Urine Nitrate (Negative) Urine Bilirubin (Negative) Urine Urobilinogen (Less than 2) mg/dL Ur Leukocyte Esterase (Negative) Urine RBC (0-3) /hpf Urine WBC (0-5) /hpf Ur Squamous Epith Cells (0-5) /hpf Calcium Oxalate Crystal (None) /hpf Amorphous Sediment (None) /hpf Urine Bacteria (None) /hpf Hyaline Casts (0-3) /lpf Urine Mucus (Occasional) /lpf Micro UA Comment Ur Microscopic Review Urine Culture Comments Salicylates (2.8-20.0) mg/dL Urine Opiates Screen (Neg) Acetaminophen Less than 2.0 L Cancelled (10.0-30.0) mcg/mL Ur Barbiturates Screen (Neg) Valproic Acid 90 (50-100) mcg/mL Ur Amphetamines Screen (Neg) U Benzodiazepines Scrn (Neg) Urine Cocaine Screen (Neg) U Cannabinoids Screen (Neg) Serum Alcohol Less than 3 (0-5) mg/dL 03/03/18 03/03/18 03/03/18 Range/Units 16:05 17:55 17:55 CBC w Diff WBC (4.0-11.0) th/mm3 RBC (4.50-5.90) mil/mm3 Hgb (13.0-17.0) gm/dL Hct (39.0-51.0) % MCV (80.0-100.0) fL MCH (27.0-34.0) pg MCHC (32.0-36.0) % RDW (11.6-17.2) % Plt Count (150-450) th/mm3 MPV (7.0-11.0) fL Neut % (Auto) (16.0-70.0) % Lymph % (Auto) (9.0-44.0) % Louisa % (Auto) (0.0-8.0) % Eos % (Auto) (0.0-4.0) % Baso % (Auto) (0.0-2.0) % Neut # (Auto) (1.8-7.7) th/mm3 Lymph # (Auto) (1.0-4.8) th/mm3 Louisa # (Auto) (0.0-0.9) th/mm3 Eos # (Auto) (0.0-0.4) th/mm3 Baso # (Auto) (0.0-0.2) th/mm3 WBC Differential Differential Comment PT (9.8-11.6) sec INR Ratio APTT (24.3-30.1) sec Sodium (136-145) meq/L Potassium (3.5-5.1) meq/L Chloride (98-107) meq/L Carbon Dioxide (21.0-32.0) meq/L Anion Gap (5-15) meq/L BUN (7-18) mg/dL Creatinine (0.60-1.30) mg/dL Estimated GFR (>89) mL/min Random Glucose (74-106) mg/dL Lactic Acid (0.4-2.0) mmol/L Calcium (8.5-10.1) mg/dL Total Bilirubin (0.2-1.0) mg/dL AST (15-37) U/L ALT (12-78) U/L Alkaline Phosphatase (45-117) U/L Ammonia 51 H (11-32) mcmol/L Total Creatine Kinase (39-308) U/L Troponin I (0.02-0.05) ng/mL Total Protein (6.4-8.2) g/dL Albumin (3.4-5.0) g/dL TSH (0.358-3.740) uIU/mL Urine Color Yellow (Yellw/Straw) Urine Clarity Clear (Clear) Urine pH 6.0 (5.0-8.5) Ur Specific [place] 1.025 (1.002-1.035) Urine Protein 30 H (Neg-Trace) mg/dL Urine Glucose (UA) Negative (Negative) mg/dL Urine Ketones Trace H (Negative) mg/dL Urine Occult Blood Large H (Negative) Urine Nitrate Negative (Negative) Urine Bilirubin Negative (Negative) Urine Urobilinogen 0.2 (Less than 2) mg/dL Ur Leukocyte Esterase Negative (Negative) Urine RBC 0-3 (0-3) /hpf Urine WBC 0-5 (0-5) /hpf Ur Squamous Epith Cells 0-5 (0-5) /hpf Calcium Oxalate Crystal Rare H (None) /hpf Amorphous Sediment Rare H (None) /hpf Urine Bacteria Few H (None) /hpf Hyaline Casts 0-3 (0-3) /lpf Urine Mucus Few H (Occasional) /lpf Micro UA Comment Culture not ind Ur Microscopic Review Microscopic reviewed Urine Culture Comments Culture not ind Salicylates (2.8-20.0) mg/dL Urine Opiates Screen Neg (Neg) Acetaminophen (10.0-30.0) mcg/mL Ur Barbiturates Screen Neg (Neg) Valproic Acid (50-100) mcg/mL Ur Amphetamines Screen Neg (Neg) U Benzodiazepines Scrn Neg (Neg) Urine Cocaine Screen Neg (Neg) U Cannabinoids Screen Pos H (Neg) Serum Alcohol (0-5) mg/dL 03/03/18 Range/Units 18:50 CBC w Diff WBC (4.0-11.0) th/mm3 RBC (4.50-5.90) mil/mm3 Hgb (13.0-17.0) gm/dL Hct (39.0-51.0) % MCV (80.0-100.0) fL MCH (27.0-34.0) pg MCHC (32.0-36.0) % RDW (11.6-17.2) % Plt Count (150-450) th/mm3 MPV (7.0-11.0) fL Neut % (Auto) (16.0-70.0) % Lymph % (Auto) (9.0-44.0) % Louisa % (Auto) (0.0-8.0) % Eos % (Auto) (0.0-4.0) % Baso % (Auto) (0.0-2.0) % Neut # (Auto) (1.8-7.7) th/mm3 Lymph # (Auto) (1.0-4.8) th/mm3 Louisa # (Auto) (0.0-0.9) th/mm3 Eos # (Auto) (0.0-0.4) th/mm3 Baso # (Auto) (0.0-0.2) th/mm3 WBC Differential Differential Comment PT (9.8-11.6) sec INR Ratio APTT (24.3-30.1) sec Sodium (136-145) meq/L Potassium (3.5-5.1) meq/L Chloride (98-107) meq/L Carbon Dioxide (21.0-32.0) meq/L Anion Gap (5-15) meq/L BUN (7-18) mg/dL Creatinine (0.60-1.30) mg/dL Estimated GFR (>89) mL/min Random Glucose (74-106) mg/dL Lactic Acid 2.8 H (0.4-2.0) mmol/L Calcium (8.5-10.1) mg/dL Total Bilirubin (0.2-1.0) mg/dL AST (15-37) U/L ALT (12-78) U/L Alkaline Phosphatase (45-117) U/L Ammonia (11-32) mcmol/L Total Creatine Kinase (39-308) U/L Troponin I (0.02-0.05) ng/mL Total Protein (6.4-8.2) g/dL Albumin (3.4-5.0) g/dL TSH (0.358-3.740) uIU/mL Urine Color (Yellw/Straw) Urine Clarity (Clear) Urine pH (5.0-8.5) Ur Specific [place] (1.002-1.035) Urine Protein (Neg-Trace) mg/dL Urine Glucose (UA) (Negative) mg/dL Urine Ketones (Negative) mg/dL Urine Occult Blood (Negative) Urine Nitrate (Negative) Urine Bilirubin (Negative) Urine Urobilinogen (Less than 2) mg/dL Ur Leukocyte Esterase (Negative) Urine RBC (0-3) /hpf Urine WBC (0-5) /hpf Ur Squamous Epith Cells (0-5) /hpf Calcium Oxalate Crystal (None) /hpf Amorphous Sediment (None) /hpf Urine Bacteria (None) /hpf Hyaline Casts (0-3) /lpf Urine Mucus (Occasional) /lpf Micro UA Comment Ur Microscopic Review Urine Culture Comments Salicylates (2.8-20.0) mg/dL Urine Opiates Screen (Neg) Acetaminophen (10.0-30.0) mcg/mL Ur Barbiturates Screen (Neg) Valproic Acid (50-100) mcg/mL Ur Amphetamines Screen (Neg) U Benzodiazepines Scrn (Neg) Urine Cocaine Screen (Neg) U Cannabinoids Screen (Neg) Serum Alcohol (0-5) mg/dL Imaging Data Attestation: I personally reviewed and interpreted this imaging study as follows : My impression: No acute cardiopulmonary process. Radiologist's impression: Chest X-Ray 03/03/18 15:56 CONCLUSION: No acute cardiopulmonary disease. Head CT 03/03/18 15:56 CONCLUSION: 1. Remote infarct right posterior MCA distribution. No acute findings. . ECG Data EKG Prior to Arrival: No Attestation: I personally reviewed and interpreted this ECG as follows: (Sinus tachycardia at a rate of 108 bpm. Incomplete right bundle. No acute ischemic changes. No ST or T wave changes.) Discharge Plan Discharge Disposition Patient Disposition: 30 Still Patient Discharge Condition Condition: Serious Discharge Details Diagnosis: Heat stroke, Acidosis, lactic, Acute hypotension, Acute dehydration, Acute renal failure Physicians Team ED Provider: Mallorie Rdz Primary Care Provider: Primary Care Airam Santizo Attending Provider: Hay Ledbetter Status ED Status: Admitted Patient
--- NOTE | 2018-03-03 20:13 | CT ---
EXAM DATE: 03/03/2018 8:00 PM EDT AGE/SEX: 57 years / Male INDICATIONS: Altered mental status. CLINICAL DATA: This is the patient's initial encounter. Patient reports that signs and symptoms have been present for 1 day and indicates a pain score of Nonresponsive. MEDICAL/SURGICAL HISTORY: Hypertension. Seizures. Cardiovascular disease. CABG. Carotid endarter ectomy. RADIATION DOSE: 58.54 CTDI (mGy) ; Patient motion COMPARISON: [facility] – [place] HEAD W/O CONTRAST, 02/08/2018. . TECHNIQUE: CT of the head without contrast. Using automated exposure control and adjustment of the mA and/or kV according to patient size, radiation dose was kept as low as reasonably achievable to ob tain optimal diagnostic quality images. DICOM format image data is available electronically for revi ew and comparison. FINDINGS: Cerebrum: Comparison is February 08. Again seen is remote infarct right posterior MCA distribution. No new infarct, mass effect or shift. Posterior Fossa: The cerebellum and brainstem are intact. The 4th ventricle is midline. The cerebe llopontine angle is unremarkable. Extracranial: The visualized portion of the orbits is intact. Skull: The calvaria is intact. No evidence of skull fracture. CONCLUSION: 1. Remote infarct right posterior MCA distribution. No acute findings. . Electronically signed by: Louis Nath MD 03/03/2018 8:12 PM EDT
[2018-03-03] MEDS ORDERED: Bisacodyl 10 MG Supp RECTAL PRN (22:26)
[2018-03-03] MEDS ORDERED: Acetaminophen 325 MG Tablet PO PRN (22:26)
--- NOTE | 2018-03-03 22:31 | P.HPCC ---
History of Present Illness Primary Care Physician: No Primary Care Physician History of Present Illness: 57-year-old male, with past medical history significant for seizure disorder, presents for an evaluation of altered mental status. He was found down outside by family. Is unknown how long he was outside. EMS states that on their arrival they found him hot and without sweats production. He was tachycardic and hypotensive at which time they applied ice packs to his groin and axilla started IV fluids. They gave him 0.4 mg of Narcan to which he did not respond. They state that he has started to come around mentally more while in route. He was resuscitated in the emergency department with aggressive IV fluid resuscitation and is admitted to ICU for further management. Inpatient Certification: I certify that the inpatient services were ordered in accordance with Medicare regulations governing the order. This includes certification that hospital inpatient services are reasonable and necessary and in the case of services not specified as inpatient-only under 42 CFR 419.22(n), that they are appropriately provided as inpatient services in accordance to with the 2-midnight benchmark under 43 CFR 412.3(e) Estimated Total Length of Stay (Days): 5 Plans for Post Hospital Care: Not yet determined Review of Systems unobtainable due to mental condition PMFSH - History History Provided By: Hand Bookbinder / EMT - Medical History Medical History: Medical History (Last Reviewed 03/03/18 @ 19:58 by Mallorie dRz MD) Psychiatric diagnosis (Acute) Hypertension (Acute) Seizure disorder (Acute) Chronic pain - Surgical History Surgical History: Surgical History (Last Reviewed 03/03/18 @ 19:58 by Mallorie Rdz MD) Status post carotid surgery (Acute) Hx of CABG (Acute) - Tobacco History Tobacco Use In Past 30 Days: (UNKNOWN) Smoking Status: Cognitive impairment Tobacco Type: Cigarettes - Alcohol History How Often Do You Have a Drink Containing Alcohol: Unable to Obtain - Substance Use History Substance History: Unable to Obtain - Travel History Recent Travel in the [place] Within the Last 8 Weeks: No Recent Travel Out of the Country Within the Last 8 Weeks: No - Immunization History Tetanus Immunization: Unsure Hx Influenza Vaccine This Season: Unable to Assess Medications and Allergies Active Medications: Active Medications Acetaminophen (Tylenol) 650 mg PO Q6H PRN PRN Reason: PAIN 1-10 AND/OR FEVER >101F Al Hydroxide/Mg Hydroxide (Milk Of Magnesia Liq) 30 ml PO Q12H PRN PRN Reason: Mild Constipation Albuterol (Duoneb Neb (Prn)) 1 ampul NEB Q2HR NEB PRN PRN Reason: WHEEZING Bisacodyl (Dulcolax Supp) 10 mg RECTAL DAILY PRN PRN Reason: SEVERE CONSITIPATION Chlorhexidine Gluconate (Chlorhexidine 2% Cloth) 3 pack TOPICAL DAILY@0400 JUDY Stop: 03/09/18 03:59 Chlorhexidine Gluconate (Chlorhexidine 2% Cloth) 3 pack TOPICAL DAILY@0400 PRN PRN Reason: Extra cloth needed Stop: 03/09/18 03:59 Divalproex Sodium (Depakote Er) 500 mg PO HS JUDY Duloxetine HCl (Cymbalta) 60 mg PO DAILY JUDY Enoxaparin Sodium (Lovenox Inj) 40 mg SQ Q24H JUDY Sodium Chloride (Ns Inj) 1,000 mls @ 0 mls/hr IV.SIG BOLUS JUDY Stop: 03/04/18 16:01 Last Infusion: 03/03/18 17:00 Dose: Infused Sodium Chloride (Ns Inj) 1,000 mls @ 0 mls/hr IV.SIG BOLUS JUDY Last Infusion: 03/03/18 17:46 Dose: Infused Norepinephrine Bitartrate (Levophed-Dextrose 4 Mg/250 Ml Drip) 4 mg in 250 mls @ 7.5 mls/hr IV.SIG TITRATE PRN; Protocol PRN Reason: Per Protocol Sodium Chloride (Ns Inj) 1,000 mls @ 184 mls/hr IV.CONT .Q5H27M JUDY Lactulose (Lactulose Liq) 30 ml PO DAILY PRN PRN Reason: SEVERE CONSITIPATION Levetiracetam (Keppra) 250 mg PO Q12H JUDY Non-Formulary Medication (Trazodone [Trazodone]) 300 mg PO HS JUDY Non-Formulary Medication (Quetiapine [Quetiapine]) 800 mg PO HS JUDY Ondansetron HCl (Zofran Inj) 4 mg IV.PUSH Q6H PRN PRN Reason: NAUSEA OR VOMITING Senna/Docusate Sodium (Brooke-Colace) 1 tab PO BID JUDY Sennosides (Senokot) 17.2 mg PO Q12H PRN PRN Reason: Moderate Constipation Sodium Chloride (Ns Flush) 2 ml IV.FLUSH PRN PRN PRN Reason: FLUSH AFTER USING IV ACCESS Sodium Chloride (Ns Flush) 2 ml IV.FLUSH PRN PRN PRN Reason: FLUSH AFTER USING IV ACCESS Sodium Chloride (Ns Flush) 2 ml IV.FLUSH BID JUDY Allergies Allergy/AdvReac Type Severity Reaction Status Date / Time acetaminophen AdvReac Intermediate pt has Verified 02/19/18 03:02 hepatitis c told not to take Home Medications Medication Instructions Recorded Confirmed Type divalproex 500 mg PO HS 02/08/18 03/03/18 History levetiracetam 250 mg PO Q12H 02/08/18 03/03/18 History lisinopril 10 mg PO DAILY 02/08/18 03/03/18 History quetiapine 800 mg PO HS 02/08/18 03/03/18 History trazodone 300 mg PO HS 02/08/18 03/03/18 History atenolol 12.5 mg PO DAILY 03/03/18 03/03/18 History baclofen 10 mg PO QID 03/03/18 03/03/18 History duloxetine 60 mg PO DAILY 03/03/18 03/03/18 History Results - Labs CBC & Chem 7: 03/03/18 16:00 03/03/18 16:00 Labs: Short CBC 03/03/18 Range/Units 16:00 WBC 6.7 (4.0-11.0) th/mm3 Hgb 12.4 L (13.0-17.0) gm/dL Hct 36.9 L (39.0-51.0) % Plt Count 158 (150-450) th/mm3 [facility] 03/03/18 16:00 Sodium 149 H Potassium 6.2 H Chloride 117 H Carbon Dioxide 14.9 L BUN 32 H Creatinine 3.90 H Calcium 8.2 L Cardiac Enzymes 03/03/18 Range/Units 16:00 Total Creatine Kinase 143 (39-308) U/L Troponin I Less than 0.02 L (0.02-0.05) ng/mL Liver Function 03/03/18 Range/Units 16:00 Total Bilirubin 0.4 (0.2-1.0) mg/dL AST 18 (15-37) U/L ALT 25 (12-78) U/L Alkaline Phosphatase 80 (45-117) U/L Albumin 3.5 (3.4-5.0) g/dL Urine 03/03/18 Range/Units 17:55 Urine Color Yellow (Yellw/Straw) Urine Clarity Clear (Clear) Urine pH 6.0 (5.0-8.5) Ur Specific [place] 1.025 (1.002-1.035) Urine Protein 30 H (Neg-Trace) mg/dL Urine Glucose (UA) Negative (Negative) mg/dL - Imaging Impressions Chest X-Ray 03/03/18 15:56 CONCLUSION: No acute cardiopulmonary disease. Head CT 03/03/18 15:56 CONCLUSION: 1. Remote infarct right posterior MCA distribution. No acute findings. . Exam Vital signs: Vital Signs 03/03/18 15:54 03/03/18 16:05 03/03/18 16:20 Temperature 104.2 F H 104.2 F H 98.1 F Pulse Rate 112 H Respiratory Rate 20 Blood Pressure 81/52 L Pulse Oximetry 96 03/03/18 16:28 03/03/18 16:49 03/03/18 16:55 Temperature 98 F Pulse Rate 98 H 95 H 92 H Respiratory Rate 18 Blood Pressure 82/41 L 81/50 L 78/73 L Pulse Oximetry 97 96 98 03/03/18 16:58 03/03/18 17:10 03/03/18 17:19 Temperature Pulse Rate 82 92 H Respiratory Rate Blood Pressure 83/53 L Pulse Oximetry 98 93 L 03/03/18 17:30 03/03/18 18:10 03/03/18 18:12 Temperature Pulse Rate 88 90 85 Respiratory Rate 18 Blood Pressure 90/56 L 129/59 L 112/64 Pulse Oximetry 98 96 96 03/03/18 18:21 03/03/18 19:34 03/03/18 20:24 Temperature 98.1 F Pulse Rate 83 76 Respiratory Rate 18 18 Blood Pressure 117/75 149/83 H Pulse Oximetry 96 95 98 03/03/18 22:10 Temperature Pulse Rate Respiratory Rate 18 Blood Pressure Pulse Oximetry Intake & Output 03/03/18 03/03/18 03/04/18 06:59 18:59 06:59 Intake Total 3362 / 3362 Output Total 550 / 550 Balance 3362 / 3362 -550 / -550 Weight 72.7 kg Intake: IV 3362 / 3362 Zosyn 4.5 GM Premix 4.5 gm In 100 / 100 100 ml @ 200 mls/hr IV.SIG STAT STA Rx#:[id number] NS Inj 1,000 ML @ Wide Open IV. 3000 / 3000 SIG BOLUS JUDY Rx#:[id number] Vancomycin Inj 1,200 MG In NS 262 / 262 Inj 250 ML @ 250 mls/hr IV.SIG STAT STA Rx#:[id number] Output: Urine Amount (Catheter) 550 / 550 Indwelling Urethral Catheter 550 / 550 - Constitutional moderate distress - Routine HEENT Exam Head: Present: normocephalic, atraumatic Eye: Present: PERRL ENT: Present: mucous membranes dry - Routine Neck Exam Present: supple, full ROM. Absent: JVD, carotid bruit - Routine Respiratory Exam Absent: accessory muscle use, rhonchi, stridor, wheezes - Routine Cardiovascular Exam Present: RRR, S1, S2, tachycardia - Routine Abdominal Exam Present: soft, normoactive bowel sounds. Absent: tenderness, distended - Routine Extremities Exam Absent: cyanosis, clubbing, edema - Routine Skin Exam Present: intact. Absent: cyanosis, erythema - Routine Neurological Exam Present: alert, moving all extremities Septic Shock Reassessment Septic shock perfusion: reassessment completed Caprini VTE Risk Assessment Caprini VTE Risk Assessment: Moderate/High Risk (score >= 2) Caprini Risk Assessment Model: Point Value = 1 Point Value = 2 Point Value = 3 Point Value = 5 Age 41-60 Minor surgery BMI > 25 kg/m2 Swollen legs Varicose veins or History of unexplained or recurrent spontaneous Oral contraceptives or hormone replacement Sepsis (< 1 month) Serious lung disease, including pneumonia (< 1 month) Abnormal pulmonary function Acute myocardial infarction Congestive heart failure (< 1 month) History of inflammatory bowel disease Medical patient at bed rest Age 61-74 Arthroscopic surgery Major open surgery (> 45 min) Laparoscopic surgery (> 45 min) Malignancy Confined to bed (> 72 hours) Immobilizing plaster cast Central venous access Age >= 75 History of VTE Family history of VTE Factor V Leiden Prothrombin [id number] Lupus anticoagulant Anticardiolipin antibodies Elevated serum homocysteine Heparin-induced thrombocytopenia Other congenital or acquired thrombophilia Stroke (< 1 month) Elective arthroplasty Hip, pelvis, or leg fracture Acute spinal cord injury (< 1 month) Prophylaxis Regimen: Total Risk Factor Score Risk Level Prophylaxis Regimen 0-1 Low Early ambulation 2 Moderate Order ONE of the following: *Sequential Compression Device (SCD) *Heparin 5000 units SQ BID 3-4 Higher Order ONE of the following medications: *Heparin 5000 units SQ TID *Enoxaparin/Lovenox 40 mg SQ daily (WT < 150 kg, CrCl > 30 mL/min) *Enoxaparin/Lovenox 30 mg SQ daily (WT < 150 kg, CrCl > 10-29 mL/min) *Enoxaparin/Lovenox 30 mg SQ BID (WT < 150 kg, CrCl > 30 mL/min) AND/OR *Sequential Compression Device (SCD) 5 or more Highest Order ONE of the following medications: *Heparin 5000 units SQ TID (Preferred with Epidurals) *Enoxaparin/Lovenox 40 mg SQ daily (WT < 150 kg, CrCl > 30 mL/min) *Enoxaparin/Lovenox 30 mg SQ daily (WT < 150 kg, CrCl > 10-29 mL/min) *Enoxaparin/Lovenox 30 mg SQ BID (WT < 150 kg, CrCl > 30 mL/min) AND *Sequential Compression Device (SCD) Assessment and Plan - Assessment and Plan Plan: Altered mental status -Heatstroke -Aggressive IV fluid hydration -External cooling as needed -Admit to ICU -CT head negative -Neuro checks per unit routine Acute kidney injury -Severe dehydration -Aggressive IV fluid resuscitation -Monitor I's and O's -Monitor electrolytes and creatinine Seizure disorder -Continue Depakote -Keppra -Lorazepam as needed Depression -Cymbalta -Quetiapine -Trazodone DVT GI prophylaxis -Teds SCDs -Lovenox -Regular diet 35 minutes of critical care H&P: Quality - VTE Deep Vein Thrombosis/Pulmonary Embolism Present on Admission: No
[2018-03-03] MEDS: Sod Chloride 0.9% Inj 1,000 ML IV.CONT SCH (23:11)
[2018-03-03] MEDS: Enoxaparin Inj 30 MG/0.3 ML Syringe SQ SCH (23:16)
[2018-03-04] MEDS: levETIRAcetam 250 MG Tablet PO SCH ×3 (00:05→20:37)
[2018-03-04] MEDS: traZODone 100 MG Tablet PO SCH ×2 (00:05→20:37)
[2018-03-04] MEDS ORDERED: Chlorhexidine Gluconate 2% 1 Pack (2 Cloths) TOPICAL PRN (04:00)
[2018-03-04] MEDS: Chlorhexidine Gluconate 2% 1 Pack (2 Cloths) TOPICAL SCH (04:48)
[2018-03-04] MEDS: Sod Chloride 0.9% Inj 1,000 ML IV.CONT SCH (04:48)
[2018-03-04] MEDS ORDERED: Valproate Inj 500 MG in Sodium Chlor 0.9% Inj 100 ML IV.SIG ONE (05:20)
[2018-03-04 06:14] LABS: Albumin 3.1 g/dL (3.4-5.0); Anion Gap 11 meq/L (5-15); Aspartate Aminotransferase 183 U/L (15-37); Blood Urea Nitrogen 37 mg/dL (7-18); Calcium 7.6 mg/dL (8.5-10.1); Carbon Dioxide 19.5 meq/L (21.0-32.0); Chloride 123 meq/L (98-107); Glomerular Filtration Rate 27 mL/min (>89); Glucose,Random 81 mg/dL (74-106); Magnesium 2.6 mg/dL (1.5-2.5); Potassium 4.6 meq/L (3.5-5.1); Sodium 153 meq/L (136-145)
[2018-03-04 06:39] LABS: Alanine Aminotransferase 42 U/L (12-78); Alkaline Phosphatase 77 U/L (45-117); Creatine Kinase 7645 U/L (39-308); Phosphorus 3.2 mg/dL (2.5-4.9); Total Protein 6.5 g/dL (6.4-8.2); Troponin I 0.07 ng/mL (0.02-0.05)
[2018-03-04 06:52] LABS: CKMB Percent 1.1 % (0.0-4.0); Creatine Kinase MB 84.6 ng/mL (0.5-3.6)
--- NOTE | 2018-03-04 07:51 | ECG ---
Date Performed: 03/03/2018 Time Performed: 15:59:57 PTAGE: 57 years EKG: SINUS TACHYCARDIA INDETERMINATE AXIS LOW QRS VOLTAGE IN PRECORDIAL LEADS INCOMPLETE RIGHT B UNDLE BRANCH BLOCK POSSIBLE INFERIOR MYOCARDIAL INFARCTION ABNORMAL RHYTHM ECG PREVIOUS TRACING : 02/08/2018 12.05 Since the previous tracing, no significant change noted DOCTOR: Shabana Hendrickson Interpretating Date/Time 03/04/2018 07:49:39
--- NOTE | 2018-03-04 08:17 | P.PNCC ---
Subjective Subjective Remarks/Hospital Course: Hospital Course: 57-year-old male, with past medical history significant for seizure disorder, presents for an evaluation of altered mental status. He was found down outside by family. Is unknown how long he was outside. EMS states that on their arrival they found him hot and without sweats production. He was tachycardic and hypotensive at which time they applied ice packs to his groin and axilla started IV fluids. They gave him 0.4 mg of Narcan to which he did not respond. They state that he has started to come around mentally more while in route. He was resuscitated in the emergency department with aggressive IV fluid resuscitation and is admitted to ICU for further management. Subjective: 03/04: more awake today. organ function improving. hypernatremia persists. temperature back to baseline. brief ROS negative. full ROS unobtainable due to somnolence. Objective Vital Signs / I&O: Vital Signs 03/03/18 15:54 03/03/18 16:05 03/03/18 16:20 Temperature 40.1 C H 40.1 C H 36.7 C Pulse Rate 112 H Respiratory Rate 20 Blood Pressure 81/52 L Pulse Oximetry 96 03/03/18 16:28 03/03/18 16:49 03/03/18 16:55 Temperature 36.6 C Pulse Rate 98 H 95 H 92 H Respiratory Rate 18 Blood Pressure 82/41 L 81/50 L 78/73 L Pulse Oximetry 97 96 98 03/03/18 16:58 03/03/18 17:10 03/03/18 17:19 Temperature Pulse Rate 82 92 H Respiratory Rate Blood Pressure 83/53 L Pulse Oximetry 98 93 L 03/03/18 17:30 03/03/18 18:10 03/03/18 18:12 Temperature Pulse Rate 88 90 85 Respiratory Rate 18 Blood Pressure 90/56 L 129/59 L 112/64 Pulse Oximetry 98 96 96 03/03/18 18:21 03/03/18 19:34 03/03/18 20:24 Temperature 36.7 C Pulse Rate 83 76 Respiratory Rate 18 18 Blood Pressure 117/75 149/83 H Pulse Oximetry 96 95 98 03/03/18 21:52 03/03/18 22:00 03/03/18 22:10 Temperature Pulse Rate 86 85 Respiratory Rate 39 H 39 H 18 Blood Pressure Pulse Oximetry 97 09/17/18 22:13 03/03/18 23:00 03/04/18 00:00 Temperature Pulse Rate 83 76 78 Respiratory Rate 29 H 12 42 H Blood Pressure 142/64 H Pulse Oximetry 96 98 95 03/04/18 00:58 03/04/18 01:00 03/04/18 02:00 Temperature Pulse Rate 73 71 71 Respiratory Rate 17 13 11 L Blood Pressure 143/77 H 159/88 H 153/87 H Pulse Oximetry 99 98 98 03/04/18 03:00 03/04/18 04:00 03/04/18 04:01 Temperature Pulse Rate 74 85 84 Respiratory Rate 10 L 29 H 24 Blood Pressure 162/92 H 148/83 H Pulse Oximetry 99 97 97 03/04/18 05:00 03/04/18 05:01 03/04/18 06:00 Temperature Pulse Rate 81 82 73 Respiratory Rate 48 H 20 11 L Blood Pressure 124/70 144/81 H Pulse Oximetry 93 L 98 99 Intake & Output 03/03/18 03/04/18 03/04/18 18:59 06:59 18:59 Intake Total 3362 / 3362 1105 / 1105 105 / 105 Output Total 950 / 950 Balance 3362 / 3362 155 / 155 105 / 105 Weight 72.7 kg 60 kg Intake: IV 3362 / 3362 1105 / 1105 105 / 105 NS Inj 1,000 ML @ 184 mls/hr IV 1000 / 1000 .CONT .Q5H27M JUDY Rx#:[id number] Zosyn 4.5 GM Premix 4.5 gm In 100 / 100 100 ml @ 200 mls/hr IV.SIG STAT STA Rx#:[id number] NS Inj 1,000 ML @ Wide Open IV. 3000 / 3000 SIG BOLUS JUDY Rx#:[id number] Depacon Inj 500 MG In NS Inj 105 / 105 100 ML @ 105 mls/hr IV.SIG ONCE ONE Rx#:[id number] Vancomycin Inj 1,200 MG In NS 262 / 262 Inj 250 ML @ 250 mls/hr IV.SIG STAT STA Rx#:[id number] Keppra Inj 500 MG In NS Inj 100 105 / 105 ML @ 400 mls/hr IV.SIG ONCE ONE Rx#:[id number] Output: Urine Amount (Catheter) 950 / 950 Indwelling Urethral Catheter 950 / 950 Result Diagrams: 03/03/18 16:00 03/04/18 05:19 Objective Remarks: GENERAL: Middle-age male, lying in bed, somnolent but arousable. No acute distress HEENT: Normocephalic. Atraumatic. Pupils equal, round, reactive, conjugate. Mucous membranes are moist NECK: Trachea is midline. There is no JVD. CHEST: Room air. Equal chest rise. Unlabored. CARDIOVASCULAR: Normal rate, regular rhythm. Sinus. ABDOMEN: Soft, nontender, nondistended. No guarding. MUSCULOSKELETAL: Pulses 2+. No peripheral edema. NEUROLOGICAL: RASS -1. Arouses and follows commands. No focal deficits. Assessment and Plan - Assessment and Plan Plan: Assessment: 57yM with heat stroke, acute metabolic encephalopathy, severe dehydration and associated organ dysfunction including acute rhabdomyolysis and kidney injury. Clinically improving. stable for transfer to floor. Acute metabolic encephalopathy - improving. Heat stroke -Heatstroke -Aggressive IV fluid hydration -External cooling as needed -CT head negative Severe dehydration - continue iv fluid resuscitation Acute rhabdomyolysis - serial ck - ivf hydration Hypernatremia - persistent - free water deficit. - change fluids to 1/2 NS @ 150cc/hr. Hyperkalemia - improving - continue ivf hydration - daily bmp Acute kidney injury- improving. -Severe dehydration -Aggressive IV fluid resuscitation -Monitor I's and O's -Monitor electrolytes and creatinine - d/c beena. Seizure disorder -Continue Depakote -Keppra -Lorazepam as needed Depression -Cymbalta -Quetiapine -Trazodone DVT GI prophylaxis -Teds SCDs -Lovenox -Regular diet ok to transfer out of ICU.
[2018-03-04] MEDS: Duloxetine 60 MG DR Capsule PO SCH (09:29)
[2018-03-04] MEDS: Sodium Chloride 0.45 % Inj 1,000 ML IV.CONT SCH (11:23)
[2018-03-04 12:58] LABS: Baso % (Auto) 0.3 % (0.0-2.0); Eos % (Auto) 0.2 % (0.0-4.0); Hematocrit 37.5 % (39.0-51.0); Hemoglobin 12.3 gm/dL (13.0-17.0); Lymph # (Auto) 1.4 th/mm3 (1.0-4.8); Lymph % (Auto) 21.2 % (9.0-44.0); Mean Corpuscular HGB Conc 32.9 % (32.0-36.0); Mean Corpuscular Hemoglobin 30.4 pg (27.0-34.0); Mean Corpuscular Volume 92.4 fL (80.0-100.0); Mean Platelet Volume 9.4 fL (7.0-11.0); Mono # (Auto) 0.6 th/mm3 (0.0-0.9); Neut # (Auto) 4.7 th/mm3 (1.8-7.7); Neut % (Auto) 69.3 % (16.0-70.0); Platelet Count 109 th/mm3 (150-450); Red Blood Count 4.05 mil/mm3 (4.50-5.90); Red Cell Distribution Width 15.2 % (11.6-17.2); White Blood Count 6.8 th/mm3 (4.0-11.0)
[2018-03-04 14:08] LABS: Creatine Kinase MB 108.2 ng/mL (0.5-3.6)
[2018-03-04] MEDS: Senna/Docusate Sodium 8.6/50 MG Tablet PO SCH ×2 (16:27→20:37)
--- NOTE | 2018-03-04 18:19 | ECG ---
Date Performed: 03/04/2018 Time Performed: 04:06:00 PTAGE: 57 years EKG: Sinus rhythm Indeterminate axis Possible inferior infarct - age undetermined Possible anterior infarct - age unde termined Generalized low QRS voltages When compared to previous tracing, the patient is no longer Tac hycardic. Abnormal ECG PREVIOUS TRACING : 03/03/2018 15.59.57 DOCTOR: Shabana Hendrickson Interpretating Date/Time 03/04/2018 18:17:52
[2018-03-04] MEDS: Divalproex 500 MG ER Tablet PO SCH (20:37)
[2018-03-04] MEDS ORDERED: QUETIAPINE PO SCH (21:00)
[2018-03-04] MEDS ORDERED: TRAZODONE 300 MG PO SCH (21:00)
[2018-03-04] MEDS: Enoxaparin Inj 30 MG/0.3 ML Syringe SQ SCH (22:14)
[2018-03-05 01:02] LABS: Calcium 7.8 mg/dL (8.5-10.1); Carbon Dioxide 20.5 meq/L (21.0-32.0); Magnesium 2.3 mg/dL (1.5-2.5); Phosphorus 1.6 mg/dL (2.5-4.9); Potassium 4.7 meq/L (3.5-5.1)
[2018-03-05] MEDS: Sodium Chloride 0.45 % Inj 1,000 ML IV.CONT SCH ×5 (01:26→15:59)
[2018-03-05 01:30] LABS: CKMB Percent 0.9 % (0.0-4.0); Creatine Kinase MB 81.7 ng/mL (0.5-3.6)
[2018-03-05] MEDS: Chlorhexidine Gluconate 2% 1 Pack (2 Cloths) TOPICAL SCH (04:57)
[2018-03-05 05:02] LABS: CKMB Percent 0.9 % (0.0-4.0); Creatine Kinase MB 64.4 ng/mL (0.5-3.6)
[2018-03-05 08:34] LABS: Activated Partial Thrombo Time 28.8 sec (24.3-30.1); INR 1.1 Ratio; Prothrombin Time 11.1 sec (9.8-11.6)
[2018-03-05] MEDS: levETIRAcetam 250 MG Tablet PO SCH ×2 (09:17→20:17)
[2018-03-05] MEDS: Senna/Docusate Sodium 8.6/50 MG Tablet PO SCH ×2 (09:18→20:17)
[2018-03-05] MEDS: Duloxetine 60 MG DR Capsule PO SCH (12:35)
[2018-03-05 12:42] LABS: CKMB Percent 0.9 % (0.0-4.0); Creatine Kinase MB 55.2 ng/mL (0.5-3.6)
--- NOTE | 2018-03-05 15:04 | P.PNIM ---
Subjective Interval history: Sleeping, wakes up for exam. Appears comfortable. Very confused. Physical Exam Vital signs: Vital Signs 03/04/18 15:00 03/04/18 16:00 03/04/18 17:00 Temperature 97.6 F Pulse Rate 63 59 L 73 Respiratory Rate 15 16 0 L Blood Pressure 152/91 H 159/86 H 143/80 H Pulse Oximetry 99 100 93 L 03/04/18 18:00 03/04/18 18:43 03/04/18 19:00 Temperature Pulse Rate 77 72 74 Respiratory Rate 30 H 27 H 28 H Blood Pressure 183/81 H Pulse Oximetry 87 L 86 L 86 L 03/04/18 19:01 03/04/18 19:06 03/04/18 19:10 Temperature Pulse Rate 74 75 Respiratory Rate 34 H 34 H Blood Pressure 158/109 H 153/74 H Pulse Oximetry 92 L 94 L 97 03/04/18 20:00 03/04/18 20:01 03/04/18 21:00 Temperature 99.1 F Pulse Rate 72 69 84 Respiratory Rate 24 26 H 16 Blood Pressure 188/81 H 188/81 H Pulse Oximetry 97 97 96 03/04/18 21:11 03/04/18 22:00 03/04/18 23:00 Temperature Pulse Rate 87 78 83 Respiratory Rate 20 19 15 Blood Pressure 120/82 170/87 H Pulse Oximetry 96 95 95 03/04/18 23:01 03/05/18 00:00 03/05/18 01:00 Temperature 98.7 F Pulse Rate 81 84 70 Respiratory Rate 16 15 12 Blood Pressure 142/72 H 157/86 H 158/89 H Pulse Oximetry 96 99 99 03/05/18 02:00 03/05/18 03:00 03/05/18 04:00 Temperature 98.8 F Pulse Rate 74 86 77 Respiratory Rate 15 16 15 Blood Pressure 164/98 H 130/81 180/92 H Pulse Oximetry 97 94 L 99 03/05/18 05:00 03/05/18 06:00 03/05/18 06:01 Temperature Pulse Rate 78 82 80 Respiratory Rate 18 25 H 15 Blood Pressure 172/84 H 166/78 H Pulse Oximetry 98 92 L 88 L 03/05/18 07:00 03/05/18 08:00 03/05/18 09:00 Temperature Pulse Rate 73 84 91 H Respiratory Rate 14 30 H 18 Blood Pressure 183/98 H 147/85 H Pulse Oximetry 99 99 99 03/05/18 09:01 03/05/18 10:00 03/05/18 11:00 Temperature 97.8 F Pulse Rate 80 74 72 Respiratory Rate 19 17 13 Blood Pressure 171/82 H 185/92 H 192/94 H Pulse Oximetry 94 L 99 99 03/05/18 12:00 03/05/18 12:08 Temperature 97.6 F Pulse Rate 73 71 Respiratory Rate 20 17 Blood Pressure 191/88 H Pulse Oximetry 97 98 Intake & Output 03/04/18 03/05/18 03/05/18 18:59 06:59 18:59 Intake Total 2105 / 2105 50 / 50 1000 / 1000 Output Total 1000 / 1000 700 / 700 Balance 1105 / 1105 -650 / -650 1000 / 1000 Weight 69 kg Intake: IV 2105 / 2105 1000 / 1000 NS Inj 1,000 ML @ 184 mls/hr IV 1000 / 1000 .CONT .Q5H27M [facility] Rx#:[id number] 1/2 Normal Saline Inj 1,000 ML 1000 / 1000 1000 / 1000 @ 150 mls/hr IV.CONT .Q6H40M [facility] Rx#:[id number] Depacon Inj 500 MG In NS Inj 105 / 105 100 ML @ 105 mls/hr IV.SIG ONCE ONE Rx#:[id number] Oral 0 / 0 50 / 50 Output: Urine Amount (Catheter) 1000 / 1000 700 / 700 Indwelling Urethral Catheter 1000 / 1000 Straight 700 / 700 Other: # Bowel Movements 0 Narrative: GENERAL: Patient sleeping, wakes up for exam. Appears comfortable. Very confused. Disoriented. SKIN: Warm and dry. HEAD: Normocephalic. EYES: No scleral icterus. No injection or drainage. NECK: Supple, trachea midline. No JVD . CARDIOVASCULAR: Regular rate and rhythm without murmurs, gallops, or rubs. RESPIRATORY: Breath sounds equal bilaterally. No accessory muscle use. GASTROINTESTINAL: Abdomen soft, non-tender, nondistended. MUSCULOSKELETAL: No cyanosis, or edema. BACK: Nontender without obvious deformity. No CVA tenderness. - Urinary Catheter Management Indwelling Urethral Catheter Cath placed during this visit: yes Reason for continuing: Hourly intake/output Insertion date: 03/03/18 Insertion time: 17:55 Straight Cath placed during this visit: yes, but has since been removed by the nurse Reason for continuing: Not indwelling catheter Insertion date: 03/03/18 Removal date: 03/04/18 Removal time: 18:30 Results - Labs CBC & Chem 7: 03/04/18 12:46 03/05/18 00:02 Laboratory Results - last 24 hr 03/05/18 03/05/18 03/05/18 00:02 03:16 08:10 PT 11.1 INR 1.1 APTT 28.8 D Sodium 147 H Potassium 4.7 Chloride 120 H Carbon Dioxide 20.5 L Anion Gap 7 BUN 29 H Creatinine 1.21 Estimated GFR 62 L Random Glucose 73 L Lactic Acid Calcium 7.8 L Phosphorus 1.6 L D Magnesium 2.3 Total Creatine Kinase 9491 H 7554 H CK-MB (CK-2) 81.7 H 64.4 H CK-MB (CK-2) % 0.9 0.9 03/05/18 03/05/18 08:10 11:11 PT INR APTT Sodium Potassium Chloride Carbon Dioxide Anion Gap BUN Creatinine Estimated GFR Random Glucose Lactic Acid 0.2 L Calcium Phosphorus Magnesium Total Creatine Kinase 6338 H CK-MB (CK-2) 55.2 H CK-MB (CK-2) % 0.9 Microbiology 03/03/18 16:05 Blood - Peripheral Aerobic Blood Culture - Preliminary No growth in 2 days 03/03/18 16:05 Blood - Peripheral Anaerobic Blood Culture - Preliminary No growth in 2 days 03/03/18 16:00 Blood - Peripheral Aerobic Blood Culture - Preliminary No growth in 2 days 03/03/18 16:00 Blood - Peripheral Anaerobic Blood Culture - Preliminary No growth in 2 days Assessment and Plan - Plan Assessment: 57yM with heat stroke, acute metabolic encephalopathy, severe dehydration and associated organ dysfunction including acute rhabdomyolysis and kidney injury. Clinically improving. stable for transfer to floor. Acute metabolic encephalopathy - improving. Heat stroke -Heatstroke -Aggressive IV fluid hydration -External cooling as needed -CT head negative = Recent admission noted possibly secondary to spice. Severe dehydration - continue iv fluid resuscitation Acute rhabdomyolysis - serial ck - ivf hydration = 03/05 rhabdomyolysis with CK 6000 improving. Hypernatremia - persistent - free water deficit. - change fluids to 1/2 NS @ 150cc/hr. = Sodium decreasing slowly. Continue half normal saline. Hyperkalemia - improving - continue ivf hydration - daily bmp Acute kidney injury- improving. -Severe dehydration -Aggressive IV fluid resuscitation -Monitor I's and O's -Monitor electrolytes and creatinine - d/c [place]. = Creatinine 1.2. Improved. Continue to monitor. IV fluids. Seizure disorder -Continue Depakote -Keppra -Lorazepam as needed = 03/05. Will order EEG. Depression -Cymbalta -Quetiapine -Trazodone DVT GI prophylaxis -Teds SCDs -Lovenox -Regular diet Discussed Condition With: Nurse. Discharge Planning: Pending improvement.
[2018-03-05] MEDS: traZODone 100 MG Tablet PO SCH (20:16)
[2018-03-05] MEDS: Divalproex 500 MG ER Tablet PO SCH (20:17)
--- NOTE | 2018-03-05 22:01 | MG ---
cc: Efren Royal MD EEG RECORD NUMBER: [id number] Four to 6 Hz theta activity, 10-30 microvolts, with slow eye movements, admixed 1-2 Hz delta activity occurring suggestive of drowsy stage I-II sleep. Myogenic artifact in the frontal channel, good easy variability reactivity. Background incremented up to 6-7 Hz during an arousal. Reduce driving with photic stimulation. Single EKG showing sinus rhythm. INTERPRETATION: Mainly sleep state EEG. No epileptic activity. Clinical correlation. MD TAYLOR Valenzuela/carmelo , 09:26 PM , 09:30 PM
[2018-03-05] MEDS: Enoxaparin Inj 30 MG/0.3 ML Syringe SQ SCH (22:20)
[2018-03-06] MEDS: Sodium Chloride 0.45 % Inj 1,000 ML IV.CONT SCH ×3 (00:33→14:31)
[2018-03-06 04:22] LABS: Anion Gap 8 meq/L (5-15); Blood Urea Nitrogen 12 mg/dL (7-18); Calcium 8.1 mg/dL (8.5-10.1); Carbon Dioxide 22.6 meq/L (21.0-32.0); Chloride 111 meq/L (98-107); Glomerular Filtration Rate Greater Than 89 mL/min (>89); Glucose,Random 65 mg/dL (74-106); Magnesium 1.9 mg/dL (1.5-2.5); Phosphorus 1.5 mg/dL (2.5-4.9); Sodium 142 meq/L (136-145)
[2018-03-06] MEDS: Chlorhexidine Gluconate 2% 1 Pack (2 Cloths) TOPICAL SCH (04:34)
[2018-03-06] MEDS ORDERED: Dextrose 50% in Water Syringe 50 ML ONE (05:19)
[2018-03-06] MEDS ORDERED: Sodium Phosphate Inj 30 MMOL in Sodium Chlor 0.9% Inj 250 ML IV.SIG PRN (06:56)
[2018-03-06] MEDS ORDERED: Potassium Chloride 25 MEQ Effervescent Tablet PO PRN (06:56)
[2018-03-06] MEDS ORDERED: Potassium Phosphate 500 MG Soluble Tablet PO PRN ×2 (06:56)
[2018-03-06] MEDS ORDERED: Potassium Chlor 40 mEq Premix 40 MEQ/100 ML PIGGYBACK IV.SIG PRN ×2 (06:56)
[2018-03-06] MEDS ORDERED: Potassium Phosphate Inj 30 MMOL in Sodium Chlor 0.9% Inj 250 ML IV.SIG PRN (06:56)
[2018-03-06] MEDS ORDERED: Magnesium Oxide 400 MG Tablet PO PRN (06:56)
[2018-03-06] MEDS ORDERED: Magnesium Sulfate Inj 2 GM in Sodium Chlor 0.9% Inj 96 ML IV.SIG PRN (06:56)
[2018-03-06] MEDS ORDERED: Potassium Chlor 20 mEq Premix 20 MEQ/100 ML PIGGYBACK IV.SIG PRN ×2 (06:56)
[2018-03-06] MEDS ORDERED: Magnesium Sulfate Inj 4 GM in Sodium Chlor 0.9% Inj 92 ML IV.SIG PRN (06:56)
[2018-03-06] MEDS: Duloxetine 60 MG DR Capsule PO SCH (09:27)
[2018-03-06] MEDS: levETIRAcetam 250 MG Tablet PO SCH ×2 (09:27→21:09)
[2018-03-06] MEDS: Senna/Docusate Sodium 8.6/50 MG Tablet PO SCH ×2 (09:27→21:09)
[2018-03-06] MEDS: LORazepam 1 MG Tablet PO PRN (13:34)
[2018-03-06 14:16] LABS: CKMB Percent 0.8 % (0.0-4.0); Creatine Kinase MB 29.1 ng/mL (0.5-3.6)
--- NOTE | 2018-03-06 16:28 | P.PNIM ---
Subjective Interval history: Patient much more alert today. Talking. Denies any pain. Says he is feeling better. As soon as I asked if he was doing any drugs, he stops talking. Physical Exam Vital signs: Vital Signs 03/05/18 19:55 03/05/18 20:00 03/06/18 00:00 Temperature 97.5 F L 97.8 F Pulse Rate 83 93 H Respiratory Rate 22 15 Blood Pressure 177/107 H 143/100 H Pulse Oximetry 96 99 92 L 03/06/18 04:00 03/06/18 09:22 Temperature 97.2 F L Pulse Rate 84 Respiratory Rate 13 Blood Pressure 135/92 H Pulse Oximetry 93 L 93 L Intake & Output 03/05/18 03/06/18 03/06/18 18:59 06:59 18:59 Intake Total 2000 / 2000 1500 / 1500 1550 / 1550 Output Total 1000 / 1000 1200 / 1200 Balance 1000 / 1000 300 / 300 1550 / 1550 Weight 68.5 kg Intake: IV 1999 / 1999 1500 / 1500 1550 / 1550 D50W Syringe 50 ML @ 0 mls/hr . 50 / 50 ROUTE .[facility] Rx#:[id number] 1/2 Normal Saline Inj 1,000 ML 1999 / 1999 1500 / 1500 1500 / 1500 @ 150 mls/hr IV.CONT .Q6H40M [facility] Rx#:[id number] Output: Urine 1000 / 1000 1200 / 1200 Other: # Bowel Movements 0 Narrative: GENERAL: Patient sleeping, wakes up for exam. Appears comfortable. Talking more today. Disoriented as before. SKIN: Warm and dry. HEAD: Normocephalic. EYES: No scleral icterus. No injection or drainage. NECK: Supple, trachea midline. No JVD . CARDIOVASCULAR: Regular rate and rhythm without murmurs, gallops, or rubs. RESPIRATORY: Breath sounds equal bilaterally. No accessory muscle use. GASTROINTESTINAL: Abdomen soft, non-tender, nondistended. MUSCULOSKELETAL: No cyanosis, or edema. BACK: Nontender without obvious deformity. No CVA tenderness. - Urinary Catheter Management Indwelling Urethral Catheter Cath placed during this visit: yes Reason for continuing: Hourly intake/output Insertion date: 03/03/18 Insertion time: 17:55 Straight Cath placed during this visit: yes, but has since been removed by the nurse Reason for continuing: Not indwelling catheter Insertion date: 03/03/18 Removal date: 03/04/18 Removal time: 18:30 Results - Labs CBC & Chem 7: 03/04/18 12:46 03/06/18 03:17 Laboratory Results - last 24 hr 03/06/18 03/06/18 03/06/18 03:17 03:17 03:17 Sodium 142 Potassium 4.0 Chloride 111 H D Carbon Dioxide 22.6 Anion Gap 8 BUN 12 Creatinine 0.77 Estimated GFR Greater than 89 POC Glucose Random Glucose 65 L Calcium 8.1 L Phosphorus 1.5 L Magnesium 1.9 Ammonia 42 H Total Creatine Kinase 3426 H CK-MB (CK-2) 29.1 H CK-MB (CK-2) % 0.8 03/06/18 03/06/18 06:12 08:27 Sodium Potassium Chloride Carbon Dioxide Anion Gap BUN Creatinine Estimated GFR POC Glucose 158 H 98 Random Glucose Calcium Phosphorus Magnesium Ammonia Total Creatine Kinase CK-MB (CK-2) CK-MB (CK-2) % Microbiology 03/03/18 16:05 Blood - Peripheral Aerobic Blood Culture - Preliminary No growth in 3 days 03/03/18 16:05 Blood - Peripheral Anaerobic Blood Culture - Preliminary No growth in 3 days 03/03/18 16:00 Blood - Peripheral Aerobic Blood Culture - Preliminary No growth in 3 days 03/03/18 16:00 Blood - Peripheral Anaerobic Blood Culture - Preliminary No growth in 3 days Assessment and Plan - Plan Assessment: 57yM with heat stroke, acute metabolic encephalopathy, severe dehydration and associated organ dysfunction including acute rhabdomyolysis and kidney injury. Clinically improving. stable for transfer to floor. Acute metabolic encephalopathy - improving. Heat stroke -Heatstroke -Aggressive IV fluid hydration -External cooling as needed -CT head negative = Recent admission noted possibly secondary to spice. Severe dehydration - continue iv fluid resuscitation Acute rhabdomyolysis - serial ck - ivf hydration = 03/05 rhabdomyolysis with CK 6000 improving. Hypernatremia - persistent - free water deficit. - change fluids to 1/2 NS @ 150cc/hr. = Sodium decreasing slowly. Continue half normal saline. Hyperkalemia - improving - continue ivf hydration - daily bmp Acute kidney injury- improving. -Severe dehydration -Aggressive IV fluid resuscitation -Monitor I's and O's -Monitor electrolytes and creatinine - d/c [place]. = Creatinine 1.2. Improved. Continue to monitor. IV fluids. Seizure disorder -Continue Depakote -Keppra -Lorazepam as needed = 03/05. Will order EEG. Depression -Cymbalta -Quetiapine -Trazodone DVT GI prophylaxis -Teds SCDs -Lovenox -Regular diet Discharge Planning: Pending improvement.
--- NOTE | 2018-03-06 16:37 | P.PNIM ---
Subjective Interval history: Patient much more alert today. Talking. Denies any pain. Says he is feeling better. As soon as I asked if he was doing any drugs, he stops talking. Physical Exam Vital signs: Vital Signs 03/05/18 19:55 03/05/18 20:00 03/06/18 00:00 Temperature 97.5 F L 97.8 F Pulse Rate 83 93 H Respiratory Rate 22 15 Blood Pressure 177/107 H 143/100 H Pulse Oximetry 96 99 92 L 03/06/18 04:00 03/06/18 09:22 Temperature 97.2 F L Pulse Rate 84 Respiratory Rate 13 Blood Pressure 135/92 H Pulse Oximetry 93 L 93 L Intake & Output 03/05/18 03/06/18 03/06/18 18:59 06:59 18:59 Intake Total 2000 / 2000 1500 / 1500 1550 / 1550 Output Total 1000 / 1000 1200 / 1200 Balance 1000 / 1000 300 / 300 1550 / 1550 Weight 68.5 kg Intake: IV 1999 / 1999 1500 / 1500 1550 / 1550 D50W Syringe 50 ML @ 0 mls/hr . 50 / 50 ROUTE .[facility] Rx#:[id number] 1/2 Normal Saline Inj 1,000 ML 1999 / 1999 1500 / 1500 1500 / 1500 @ 150 mls/hr IV.CONT .Q6H40M [facility] Rx#:[id number] Output: Urine 1000 / 1000 1200 / 1200 Other: # Bowel Movements 0 Narrative: GENERAL: Patient sleeping, wakes up for exam. Appears comfortable. Talking more today. Disoriented as before. SKIN: Warm and dry. HEAD: Normocephalic. EYES: No scleral icterus. No injection or drainage. NECK: Supple, trachea midline. No JVD . CARDIOVASCULAR: Regular rate and rhythm without murmurs, gallops, or rubs. RESPIRATORY: Breath sounds equal bilaterally. No accessory muscle use. GASTROINTESTINAL: Abdomen soft, non-tender, nondistended. MUSCULOSKELETAL: No cyanosis, or edema. BACK: Nontender without obvious deformity. No CVA tenderness. - Urinary Catheter Management Indwelling Urethral Catheter Cath placed during this visit: yes Reason for continuing: Hourly intake/output Insertion date: 03/03/18 Insertion time: 17:55 Straight Cath placed during this visit: yes, but has since been removed by the nurse Reason for continuing: Not indwelling catheter Insertion date: 03/03/18 Removal date: 03/04/18 Removal time: 18:30 Results - Labs CBC & Chem 7: 03/04/18 12:46 03/06/18 03:17 Laboratory Results - last 24 hr 03/06/18 03/06/18 03/06/18 03:17 03:17 03:17 Sodium 142 Potassium 4.0 Chloride 111 H D Carbon Dioxide 22.6 Anion Gap 8 BUN 12 Creatinine 0.77 Estimated GFR Greater than 89 POC Glucose Random Glucose 65 L Calcium 8.1 L Phosphorus 1.5 L Magnesium 1.9 Ammonia 42 H Total Creatine Kinase 3426 H CK-MB (CK-2) 29.1 H CK-MB (CK-2) % 0.8 03/06/18 03/06/18 06:12 08:27 Sodium Potassium Chloride Carbon Dioxide Anion Gap BUN Creatinine Estimated GFR POC Glucose 158 H 98 Random Glucose Calcium Phosphorus Magnesium Ammonia Total Creatine Kinase CK-MB (CK-2) CK-MB (CK-2) % Microbiology 03/03/18 16:05 Blood - Peripheral Aerobic Blood Culture - Preliminary No growth in 3 days 03/03/18 16:05 Blood - Peripheral Anaerobic Blood Culture - Preliminary No growth in 3 days 03/03/18 16:00 Blood - Peripheral Aerobic Blood Culture - Preliminary No growth in 3 days 03/03/18 16:00 Blood - Peripheral Anaerobic Blood Culture - Preliminary No growth in 3 days Assessment and Plan - Plan Assessment: 57yM with heat stroke, acute metabolic encephalopathy, severe dehydration and associated organ dysfunction including acute rhabdomyolysis and kidney injury. Clinically improving. stable for transfer to floor. Acute metabolic encephalopathy - improving. Heat stroke -Heatstroke -Aggressive IV fluid hydration -External cooling as needed -CT head negative = Recent admission noted possibly secondary to spice. = 03/06. Mental status improving. EEG without epileptic activity. Did recent admission secondary to spice. Continue to monitor. Severe dehydration - continue iv fluid resuscitation Acute rhabdomyolysis - serial ck - ivf hydration = 03/05 rhabdomyolysis with CK 6000 improving. = 03/06. CK 3400. Improving. Continue IV fluids. //Hypophosphatemia. Phosphorus 1.[address]. Place. Monitor tomorrow. Hypernatremia - persistent - free water deficit. - change fluids to 1/2 NS @ 150cc/hr. = Sodium decreasing slowly. Continue half normal saline. Hyperkalemia -Resolved. Acute kidney injury- improving. -Severe dehydration -Aggressive IV fluid resuscitation -Monitor I's and O's -Monitor electrolytes and creatinine - d/c beena. = 03/06. Creatinine 0.7. Resolved. Seizure disorder -Continue Depakote -Keppra -Lorazepam as needed = 03/06. EEG without epileptic activity. Depression -Cymbalta -Quetiapine -Trazodone DVT GI prophylaxis -Teds SCDs -Lovenox -Regular diet Discharge Planning: Pending improvement.
[2018-03-06] MEDS: KCL 10 mEq/D5W/NaCl 0.45% Inj 1,000 ML IV.CONT SCH (21:08)
[2018-03-06] MEDS: Divalproex 500 MG ER Tablet PO SCH (21:08)
[2018-03-06] MEDS: traZODone 100 MG Tablet PO SCH (21:09)
[2018-03-06] MEDS: Enoxaparin Inj 30 MG/0.3 ML Syringe SQ SCH (23:14)
[2018-03-07] MEDS: Chlorhexidine Gluconate 2% 1 Pack (2 Cloths) TOPICAL SCH (04:19)
[2018-03-07] MEDS: KCL 10 mEq/D5W/NaCl 0.45% Inj 1,000 ML IV.CONT SCH ×3 (05:07→18:55)
[2018-03-07 07:12] LABS: Anion Gap 8 meq/L (5-15); Blood Urea Nitrogen 6 mg/dL (7-18); Calcium 8.2 mg/dL (8.5-10.1); Chloride 110 meq/L (98-107); Glomerular Filtration Rate Greater Than 89 mL/min (>89); Glucose,Random 120 mg/dL (74-106); Magnesium 1.6 mg/dL (1.5-2.5); Phosphorus 2.4 mg/dL (2.5-4.9); Potassium 3.7 meq/L (3.5-5.1); Sodium 142 meq/L (136-145)
[2018-03-07] MEDS: Duloxetine 60 MG DR Capsule PO SCH (09:39)
[2018-03-07] MEDS: Senna/Docusate Sodium 8.6/50 MG Tablet PO SCH ×2 (09:39→20:47)
[2018-03-07] MEDS: levETIRAcetam 250 MG Tablet PO SCH ×2 (09:39→20:47)
[2018-03-07] MEDS ORDERED: Thiamine Inj 500 MG in Sodium Chlor 0.9% Inj 250 ML IV.SIG ONE (15:00)
--- NOTE | 2018-03-07 17:54 | P.PNIM ---
Subjective Interval history: patient a little more alert today. Denies any pain. Still somnolent however. Physical Exam Vital signs: Vital Signs 03/06/18 18:00 03/06/18 18:04 03/06/18 18:05 Temperature Pulse Rate 82 88 86 Respiratory Rate 17 19 21 Blood Pressure 185/110 H 157/97 H 171/101 H Pulse Oximetry 03/06/18 18:06 03/06/18 18:07 03/06/18 18:21 Temperature Pulse Rate 84 86 84 Respiratory Rate 20 18 23 Blood Pressure 179/107 H 178/100 H 180/102 H Pulse Oximetry 93 L 93 L 03/06/18 18:22 03/06/18 19:00 03/06/18 20:00 Temperature 97.7 F Pulse Rate 80 87 87 Respiratory Rate 19 19 19 Blood Pressure 186/99 H 178/104 H Pulse Oximetry 92 L 92 L 92 L 03/06/18 20:49 03/07/18 00:00 03/07/18 04:00 Temperature 97.7 F 97.8 F Pulse Rate 89 82 Respiratory Rate 20 12 Blood Pressure 93/69 L 125/93 H Pulse Oximetry 92 L 97 98 03/07/18 08:16 Temperature Pulse Rate Respiratory Rate Blood Pressure Pulse Oximetry 96 Intake & Output 03/06/18 03/07/18 03/07/18 18:59 06:59 18:59 Intake Total 1600 / 1600 2410 / 2410 1000 / 1000 Output Total 1900 / 1900 2400 / 2400 Balance -300 / -300 10 / 10 1000 / 1000 Weight 68.5 kg Intake: IV 1550 / 1550 2260 / 2260 1000 / 1000 D50W Syringe 50 ML @ 0 mls/hr . 50 / 50 ROUTE .[facility] Rx#:[id number] D5W/1/2NS + KCL 10 mEq Inj 1, 1000 / 1000 1000 / 1000 000 ML @ 125 mls/hr IV.CONT . [facility] Rx#:[id number] 1/2 Normal Saline Inj 1,000 ML 1500 / 1500 1000 / 1000 @ 150 mls/hr IV.CONT .Q6H40M [facility] Rx#:[id number] Sodium Phosphate Inj 30 MMOL In 260 / 260 NS Inj 250 ML @ 42 mls/hr IV. [facility] Rx#:[id number] Oral 50 / 50 150 / 150 Output: Urine 1200 / 1200 2400 / 2400 Urine Amount (Catheter) 700 / 700 Straight 700 / 700 Other: Date of Last Bowel Movement 03/05/18 # Bowel Movements 0 0 Narrative: GENERAL: patient sitting up in bed. Sleeping, wakes up for exam. Oriented to hospital, not year. SKIN: Warm and dry. HEAD: Normocephalic. EYES: No scleral icterus. No injection or drainage. NECK: Supple, trachea midline. No JVD CARDIOVASCULAR: Regular rate and rhythm without murmurs, gallops, or rubs. RESPIRATORY: Breath sounds equal bilaterally. No accessory muscle use. GASTROINTESTINAL: Abdomen soft, non-tender, nondistended. MUSCULOSKELETAL: No cyanosis, or edema. BACK: Nontender without obvious deformity. No CVA tenderness. - Urinary Catheter Management Indwelling Urethral Catheter Cath placed during this visit: yes Reason for continuing: Hourly intake/output Insertion date: 03/03/18 Insertion time: 17:55 Straight Cath placed during this visit: yes, but has since been removed by the nurse Reason for continuing: Not indwelling catheter Insertion date: 03/03/18 Removal date: 03/04/18 Removal time: 18:30 Results - Labs CBC & Chem 7: 03/04/18 12:46 03/07/18 05:35 Laboratory Results - last 24 hr 03/06/18 03/07/18 23:12 05:35 Sodium 142 Potassium 3.7 Chloride 110 H Carbon Dioxide 24.0 Anion Gap 8 BUN 6 L Creatinine 0.73 Estimated GFR Greater than 89 POC Glucose 168 H Random Glucose 120 H Calcium 8.2 L Phosphorus 2.4 L Magnesium 1.6 Microbiology 03/03/18 16:05 Blood - Peripheral Aerobic Blood Culture - Preliminary No growth in 4 days 03/03/18 16:05 Blood - Peripheral Anaerobic Blood Culture - Preliminary No growth in 4 days 03/03/18 16:00 Blood - Peripheral Aerobic Blood Culture - Preliminary No growth in 4 days 03/03/18 16:00 Blood - Peripheral Anaerobic Blood Culture - Preliminary No growth in 4 days Assessment and Plan - Plan Assessment: 57yM with heat stroke, acute metabolic encephalopathy, severe dehydration and associated organ dysfunction including acute rhabdomyolysis and kidney injury. Clinically improving. stable for transfer to floor. Acute metabolic encephalopathy - improving. Heat stroke -Heatstroke -Aggressive IV fluid hydration -External cooling as needed -CT head negative = Recent admission noted possibly secondary to spice. = 03/06. Mental status improving. EEG without epileptic activity. Did recent admission secondary to spice. Continue to monitor. =. Still somnolent. I suspect that patient is not actually compliant with all of his medications at home, and now is getting very high doses of Seroquel. We'll discontinue Seroquel. Consult neurology. EEG without epileptic activity. Severe dehydration - continue iv fluid resuscitation Acute rhabdomyolysis - serial ck - ivf hydration = 03/05 rhabdomyolysis with CK 6000 improving. = 03/06. CK 3400. Improving. Continue IV fluids. =03/07. Improving. Continue IV fluids. Continue to monitor. //Hypophosphatemia. Phosphorus 1.[address]. Place. Monitor tomorrow. Hypernatremia - persistent - free water deficit. - change fluids to 1/2 NS @ 150cc/hr. = Sodium decreasing slowly. Continue half normal saline. //hypertension. Systolic blood pressures up to 180s today. When necessary clonidine ordered. Hyperkalemia -Resolved. Acute kidney injury- improving. -Severe dehydration -Aggressive IV fluid resuscitation -Monitor I's and O's -Monitor electrolytes and creatinine - d/c beena. = 03/06. Creatinine 0.7. Resolved. Seizure disorder -Continue Depakote -Keppra -Lorazepam as needed = 03/06. EEG without epileptic activity. Depression -Cymbalta -Quetiapine -Trazodone DVT GI prophylaxis -Teds SCDs -Lovenox -Regular diet Discharge Planning: home when improved. May need rehabilitation.
[2018-03-07] MEDS: traZODone 100 MG Tablet PO SCH (20:47)
[2018-03-07] MEDS: Divalproex 500 MG ER Tablet PO SCH (20:48)
--- NOTE | 2018-03-07 21:09 | P.CONNEU ---
History of Present Illness Service: Neurology Primary Care Provider: [facility] Primary Care Physician Family Provider: [facility] Chief Complaint: Confusion History of Present Illness: 57-year-old male admitted for confusion and being found down. Looking back at the chart has a history of dementia, seizures, bipolar disorder. Similar presentation January 2018 and July 2017. Seen by the medical service and by the psychiatric service earlier this year. There is also question of alcohol withdrawal in this case. Current admission he is noted to have elevated CK levels, and renal failure. He slowly been waking up. Historically he has a spells and comes out of them. Is on Depakote his level was found to be 90. Urine drug screen was negative CT brain demonstrates old right MCA stroke Review of Systems All other systems reviewed negative except as stated in HPI [facility] - History History Provided By: Van Driver / EMT - Medical History Medical History: Medical History (Last Reviewed 03/03/18 @ 19:58 by Mallorie Rdz MD) Psychiatric diagnosis (Acute) Hypertension (Acute) Seizure disorder (Acute) Chronic pain - Surgical History Surgical History: Surgical History (Last Reviewed 03/03/18 @ 19:58 by Mallorie Rdz MD) Status post carotid surgery (Acute) Hx of CABG (Acute) - Tobacco History Tobacco Use In Past 30 Days: (UNKNOWN) Smoking Status: Cognitive impairment Tobacco Type: Cigarettes - Alcohol History How Often Do You Have a Drink Containing Alcohol: Unable to Obtain - Substance Use History Substance History: Unable to Obtain - Travel History Recent Travel in the [place] Within the Last 8 Weeks: No Recent Travel Out of the Country Within the Last 8 Weeks: No - Immunization History Tetanus Immunization: Unsure Hx Influenza Vaccine This Season: Unable to Assess Medications and Allergies Active Medications: Active Medications Acetaminophen (Tylenol) 650 mg PO Q6H PRN PRN Reason: PAIN 1-10 AND/OR FEVER >101F Al Hydroxide/Mg Hydroxide (Milk Of Magnesia Liq) 30 ml PO Q12H PRN PRN Reason: Mild Constipation Albuterol (Duoneb Neb (Prn)) 1 ampul NEB Q2HR NEB PRN PRN Reason: WHEEZING Bisacodyl (Dulcolax Supp) 10 mg RECTAL DAILY PRN PRN Reason: SEVERE CONSITIPATION Chlorhexidine Gluconate (Chlorhexidine 2% Cloth) 3 pack TOPICAL DAILY@0400 [facility] Stop: 03/09/18 03:59 Last Admin: 03/07/18 04:19 Dose: 3 pack Chlorhexidine Gluconate (Chlorhexidine 2% Cloth) 3 pack TOPICAL DAILY@0400 PRN PRN Reason: Extra cloth needed Stop: 03/09/18 03:59 Clonidine HCl (Catapres) 0.1 mg PO Q6H PRN PRN Reason: SBP>160, DBP>90 Last Admin: 03/07/18 15:56 Dose: 0.1 mg Divalproex Sodium (Depakote Er) 500 mg PO HS [facility] Last Admin: 03/07/18 20:48 Dose: 500 mg Duloxetine HCl (Cymbalta) 60 mg PO DAILY [facility] Last Admin: 03/07/18 09:39 Dose: 60 mg Enalaprilat (Vasotec Inj) 1.25 mg IV.PUSH Q6H PRN PRN Reason: SBP>160, DBP>90 Last Admin: 03/05/18 14:35 Dose: 1.25 mg Enoxaparin Sodium (Lovenox Inj) 30 mg SQ Q24H [facility] Last Admin: 03/06/18 23:14 Dose: 30 mg Flumazenil (Romazecon Inj) 0.2 mg IV.PUSH Q1M PRN PRN Reason: OVERSEDATION Haloperidol Lactate (Haldol Inj) 1 mg IV.PUSH Q15M PRN PRN Reason: for severe agitation Sodium Chloride (Ns Inj) 1,000 mls @ 0 mls/hr IV.SIG BOLUS [facility] Last Infusion: 03/03/18 17:46 Dose: Infused Magnesium Sulfate 4 gm/ Sodium (Chloride) 100 mls @ 50 mls/hr IV.SIG UNSCH PRN PRN Reason: For Magnesium 0.9 - 1.1 mg/dL Magnesium Sulfate 2 gm/ Sodium (Chloride) 100 mls @ 50 mls/hr IV.SIG UNSCH PRN PRN Reason: For Magnesium 1.2 - 1.6 mg/dL Potassium Chloride (Kcl 40 Meq Premix Inj) 40 meq in 100 mls @ 25 mls/hr IV.SIG Q2H PRN PRN Reason: For Potassium 2.8 - 3.2 mEq/L Potassium Chloride (Kcl 40 Meq Premix Inj) 40 meq in 100 mls @ 25 mls/hr IV.SIG UNSCH PRN PRN Reason: For Potassium 3.3 - 3.5 mEq/L Potassium Chloride (Kcl 20 Meq Premix Inj) 20 meq in 100 mls @ 50 mls/hr IV.SIG Q2H PRN PRN Reason: For Potassium 2.8 - 3.2 mEq/L Potassium Phosphate 30 mmol/ (Sodium Chloride) 260 mls @ 42 mls/hr IV.SIG UNSCH PRN PRN Reason: SEE LABEL COMMENTS Sodium Phosphate 30 mmol/ (Sodium Chloride) 260 mls @ 42 mls/hr IV.SIG UNSCH PRN PRN Reason: For Phosphorus < 2.5 mg/dL Last Infusion: 03/06/18 21:37 Dose: Infused Potassium Chloride (Kcl 20 Meq Premix Inj) 20 meq in 100 mls @ 50 mls/hr IV.SIG Q2H PRN PRN Reason: For Potassium 3.3 - 3.5 mEq/L Potassium Chloride/Dextrose/Sod Cl (D5w/1/2ns + Kcl 10 Meq Inj) 1,000 mls @ 75 mls/hr IV.CONT .[id number] [facility] Last Admin: 03/07/18 18:55 Dose: 125 mls/hr Lactulose (Lactulose Liq) 30 ml PO Q6H [facility] Last Admin: 03/07/18 17:07 Dose: Not Given Levetiracetam (Keppra) 250 mg PO Q12HR [facility] Last Admin: 03/07/18 20:47 Dose: 250 mg Lorazepam (Ativan) 1 mg PO Q4H PRN PRN Reason: for CIWA 8-10 Last Admin: 03/06/18 13:34 Dose: 1 mg Lorazepam (Ativan) 2 mg PO Q2H PRN PRN Reason: for CIWA 11-14 Lorazepam (Ativan Inj) 2 mg IV.PUSH Q2H PRN PRN Reason: for CIWA 11-14 Last Admin: 03/06/18 14:50 Dose: 2 mg Lorazepam (Ativan Inj) 2 mg IV.PUSH Q15M PRN PRN Reason: for CIWA > 20 Last Admin: 03/04/18 00:15 Dose: 2 mg Lorazepam (Ativan Inj) 1 mg IV.PUSH Q4H PRN PRN Reason: for CIWA 8-10 Lorazepam (Ativan Inj) 2 mg IV.PUSH Q1H PRN PRN Reason: for CIWA 15-20 Magnesium Oxide (Mag-Ox) 800 mg PO UNSCH PRN PRN Reason: For Magnesium 1.2 - 1.6 mg/dL Ondansetron HCl (Zofran Inj) 4 mg IV.PUSH Q6H PRN PRN Reason: NAUSEA OR VOMITING Last Admin: 03/04/18 20:37 Dose: 4 mg Potassium Bicarb/Potassium Chloride (K-Lyte Cl Eff) 50 meq PO UNSCH PRN PRN Reason: For Potassium 3.3 - 3.5 mEq/L Potassium Phosphate (K-Phos Original) 2,000 mg PO Q4H PRN PRN Reason: Phosphorus Less Than 2.5 mg/dL Potassium Phosphate (K-Phos Original) 2,000 mg PO UNSCH PRN PRN Reason: SEE LABEL COMMENTS Senna/Docusate Sodium (Brooke-Colace) 1 tab PO BID [facility] Last Admin: 03/07/18 20:47 Dose: 1 tab Sennosides (Senokot) 17.2 mg PO Q12H PRN PRN Reason: Moderate Constipation Sodium Chloride (Ns Flush) 2 ml IV.FLUSH PRN PRN PRN Reason: FLUSH AFTER USING IV ACCESS Sodium Chloride (Ns Flush) 2 ml IV.FLUSH PRN PRN PRN Reason: FLUSH AFTER USING IV ACCESS Sodium Chloride (Ns Flush) 2 ml IV.FLUSH BID [facility] Last Admin: 03/07/18 20:49 Dose: 2 ml Trazodone HCl (Desyrel) 300 mg PO [facility] Last Admin: 03/07/18 20:47 Dose: 300 mg Allergies Allergy/AdvReac Type Severity Reaction Status Date / Time acetaminophen AdvReac Intermediate pt has Verified 02/19/18 03:02 hepatitis c told not to take Home Medications Medication Instructions Recorded Confirmed Type divalproex 500 mg PO HS 02/08/18 03/03/18 History levetiracetam 250 mg PO Q12H 02/08/18 03/03/18 History lisinopril 10 mg PO DAILY 02/08/18 03/03/18 History quetiapine 800 mg PO HS 02/08/18 03/03/18 History trazodone 300 mg PO 02/08/18 03/03/18 History atenolol 12.5 mg PO DAILY 03/03/18 03/03/18 History baclofen 10 mg PO QID 03/03/18 03/03/18 History duloxetine 60 mg PO DAILY 03/03/18 03/03/18 History Exam Vital signs: Vital Signs 03/07/18 00:00 03/07/18 04:00 03/07/18 06:30 Temperature 97.7 F 97.8 F Pulse Rate 89 82 82 Respiratory Rate 20 12 16 Blood Pressure 93/69 L 125/93 H Pulse Oximetry 97 98 97 03/07/18 07:00 03/07/18 07:30 03/07/18 08:00 Temperature Pulse Rate 78 74 79 Respiratory Rate 12 16 10 L Blood Pressure 150/97 H 161/95 H 146/95 H Pulse Oximetry 95 97 97 03/07/18 08:16 03/07/18 08:30 03/07/18 09:00 Temperature Pulse Rate 73 80 Respiratory Rate 10 L 11 L Blood Pressure 188/107 H Pulse Oximetry 96 97 98 03/07/18 09:01 03/07/18 09:30 03/07/18 10:00 Temperature Pulse Rate 78 80 80 Respiratory Rate 13 14 12 Blood Pressure 149/102 H 143/90 H 158/100 H Pulse Oximetry 98 79 L 93 L 03/07/18 10:12 03/07/18 10:31 03/07/18 11:00 Temperature Pulse Rate 75 73 73 Respiratory Rate 13 15 12 Blood Pressure 145/80 H 164/91 H 174/99 H Pulse Oximetry 93 L 93 L 95 03/07/18 11:30 03/07/18 12:00 03/07/18 12:30 Temperature Pulse Rate 74 74 72 Respiratory Rate 12 12 11 L Blood Pressure 167/97 H 160/92 H 180/103 H Pulse Oximetry 84 L 03/07/18 13:00 03/07/18 13:17 03/07/18 13:30 Temperature Pulse Rate 72 72 85 Respiratory Rate 12 13 14 Blood Pressure 189/101 H 183/138 H 139/93 H Pulse Oximetry 97 98 03/07/18 14:00 03/07/18 14:30 03/07/18 15:00 Temperature Pulse Rate 77 73 74 Respiratory Rate 19 17 12 Blood Pressure 171/93 H 198/102 H 190/103 H Pulse Oximetry 97 97 97 03/07/18 15:30 03/07/18 16:00 03/07/18 16:42 Temperature Pulse Rate 80 78 79 Respiratory Rate 17 16 24 Blood Pressure 199/86 H 170/91 H 191/100 H Pulse Oximetry 96 95 03/07/18 17:00 03/07/18 17:02 03/07/18 18:00 Temperature Pulse Rate 75 83 83 Respiratory Rate 28 H 17 18 Blood Pressure 169/96 H Pulse Oximetry 03/07/18 20:23 Temperature Pulse Rate Respiratory Rate Blood Pressure Pulse Oximetry 97 Intake & Output 03/07/18 03/07/18 03/08/18 06:59 18:59 06:59 Intake Total 2410 / 2410 2049 / 2049 Output Total 2400 / 2400 2099 / 2099 Balance 10 / 10 -50 / -50 Weight 68.5 kg Intake: IV 2260 / 2260 1999 / 1999 D5W/1/2NS + KCL 10 mEq Inj 1, 1000 / 1000 1999 / 1999 000 ML @ 75 mls/hr IV.CONT . [id number] [facility] Rx#:[id number] 1/2 Normal Saline Inj 1,000 ML 1000 / 1000 @ 150 mls/hr IV.CONT .Q6H40M [facility] Rx#:[id number] Sodium Phosphate Inj 30 MMOL In 260 / 260 NS Inj 250 ML @ 42 mls/hr IV. SIG UNSCH PRN Rx#:[id number] Oral 150 / 150 50 / 50 Output: Urine 2400 / 2400 1400 / 1400 Urine Amount (Catheter) 700 / 700 Straight 700 / 700 Other: Date of Last Bowel Movement 03/05/18 03/05/18 # Bowel Movements 0 0 Narrative: GENERAL: in NAD, SKIN: Warm and dry. HEAD: Atraumatic. Normocephalic. EYES: Pupils equal and round. No scleral icterus. ENT: No nasal bleeding or discharge. Mucous membranes pink and moist. NECK: Trachea midline. No JVD. CARDIOVASCULAR: Regular rate and rhythm. RESPIRATORY: No accessory muscle use. GASTROINTESTINAL: Abdomen soft, non-tender, nondistended. MUSCULOSKELETAL: Extremities without clubbing, cyanosis, or edema. No obvious deformities. NEUROLOGICAL: Mildly drowsy arousable awakens, oriented to self follows some simple motor requests otherwise some nonsensical speech, no nuchal rigidity no temporal tenderness no involuntary movements noted no facial asymmetry, OU 3-2mm , eomi, VFF, No drift, Motor grossly within normal limits. Five out of 5 muscle strength in the arms and legs. Tone normal in all 4 limbs, sensory cerebellar testing unreliable at present msr 1-2+ sym, no clonus, planterflexor , PSYCHIATRIC: Appropriate mood and affect; insight and judgment normal. - Constitutional no acute distress - Routine HEENT Exam Head: Present: normocephalic Eye: Present: EOMI Results - Labs CBC & Chem 7: 03/04/18 12:46 03/07/18 05:35 Labs: Laboratory Results - last 24 hr 03/06/18 03/07/18 03/07/18 23:12 05:35 19:59 Sodium 142 Potassium 3.7 Chloride 110 H Carbon Dioxide 24.0 Anion Gap 8 BUN 6 L Creatinine 0.73 Estimated GFR Greater than 89 POC Glucose 168 H Random Glucose 120 H Calcium 8.2 L Phosphorus 2.4 L Magnesium 1.6 Ammonia 28 03/07/18 20:22 Sodium Potassium Chloride Carbon Dioxide Anion Gap BUN Creatinine Estimated GFR POC Glucose 122 H Random Glucose Calcium Phosphorus Magnesium Ammonia Review/Management - Diagnosis (1) Acute renal failure Code(s): N17.9 - Acute kidney failure, unspecified Status: Acute Current Visit: Yes (2) Bipolar disorder Code(s): F31.9 - Bipolar disorder, unspecified Status: Acute Current Visit: Yes (3) Altered mental status Code(s): R41.82 - Altered mental status, unspecified Status: Acute Current Visit: No (4) Elevated serum creatinine Code(s): R79.89 - Other specified abnormal findings of blood chemistry Status : Acute Current Visit: No (5) History of psychiatric care Code(s): Z92.89 - Personal history of other medical treatment Status: Acute Current Visit: No (6) Seizure disorder Code(s): G40.909 - Epilepsy, unspecified, not intractable, without status epilepticus Status: Acute Current Visit: No (7) Hypertension Code(s): I10 - Essential (primary) hypertension Status: Acute Current Visit : No (8) Chronic ischemic right MCA stroke Code(s): I69.30 - Unspecified sequelae of cerebral infarction Status: Acute Current Visit: Yes - Review/Management Plan: Recurrent episodes of somnolence mental status changes with subsequent resolution Etiology may include breakthrough seizure versus toxic metabolic. Had renal failure hyperammonemia on arrival which has resolved Rhabdomyolysis related to fall versus seizure activity; resolving History of cognitive impairment-vascular versus Alzheimer type, bipolar disorder and old right MCA stroke Recommendations MRI brain Hydration nutritional support We will discontinue Keppra and change to Topamax Follow exam (3) Altered mental status Qualifiers: Altered mental status type: unspecified Qualified Code(s): R41.82 - Altered mental status, unspecified (7) Hypertension Qualifiers: Hypertension type: essential hypertension Qualified Code(s): I10 - Essential (primary) hypertension
[2018-03-07] MEDS: Enoxaparin Inj 30 MG/0.3 ML Syringe SQ SCH (22:11)
[2018-03-08] MEDS: Chlorhexidine Gluconate 2% 1 Pack (2 Cloths) TOPICAL SCH (04:06)
[2018-03-08] MEDS: KCL 10 mEq/D5W/NaCl 0.45% Inj 1,000 ML IV.CONT SCH ×2 (06:26→21:17)
[2018-03-08] MEDS: Topiramate 25 MG Tablet PO SCH ×2 (08:36→21:18)
[2018-03-08] MEDS: Duloxetine 60 MG DR Capsule PO SCH (08:36)
[2018-03-08] MEDS: Senna/Docusate Sodium 8.6/50 MG Tablet PO SCH ×2 (08:36→21:18)
[2018-03-08] MEDS: LORazepam 1 MG Tablet PO PRN (08:36)
[2018-03-08] MEDS ORDERED: amLODIPine 10 MG Tablet PO ONE (09:30)
--- NOTE | 2018-03-08 10:40 | P.PNNEU ---
Subjective Subjective Comments: no cp, no dyspnea, no moore, no focal weakness, no vision loss. Patient states he has had a stroke before Active Medications: Active Medications Acetaminophen (Tylenol) 650 mg PO Q6H PRN PRN Reason: PAIN 1-10 AND/OR FEVER >101F Al Hydroxide/Mg Hydroxide (Milk Of Magnnica Liq) 30 ml PO Q12H PRN PRN Reason: Mild Constipation Albuterol (Duoneb Neb (Prn)) 1 ampul NEB Q2HR NEB PRN PRN Reason: WHEEZING Bisacodyl (Dulcolax Supp) 10 mg RECTAL DAILY PRN PRN Reason: SEVERE CONSITIPATION Chlorhexidine Gluconate (Chlorhexidine 2% Cloth) 3 pack TOPICAL DAILY@0400 [facility] Stop: 03/09/18 03:59 Last Admin: 03/08/18 04:06 Dose: 3 pack Chlorhexidine Gluconate (Chlorhexidine 2% Cloth) 3 pack TOPICAL DAILY@0400 PRN PRN Reason: Extra cloth needed Stop: 03/09/18 03:59 Clonidine HCl (Catapres) 0.1 mg PO Q6H PRN PRN Reason: SBP>160, DBP>90 Last Admin: 03/08/18 04:06 Dose: 0.1 mg Divalproex Sodium (Depakote Er) 500 mg PO HS [facility] Last Admin: 03/07/18 20:48 Dose: 500 mg Duloxetine HCl (Cymbalta) 60 mg PO DAILY [facility] Last Admin: 03/08/18 08:36 Dose: 60 mg Enalaprilat (Vasotec Inj) 1.25 mg IV.PUSH Q6H PRN PRN Reason: SBP>160, DBP>90 Last Admin: 03/08/18 06:12 Dose: 1.25 mg Enoxaparin Sodium (Lovenox Inj) 40 mg SQ Q24H [facility] Flumazenil (Romazecon Inj) 0.2 mg IV.PUSH Q1M PRN PRN Reason: OVERSEDATION Haloperidol Lactate (Haldol Inj) 1 mg IV.PUSH Q15M PRN PRN Reason: for severe agitation Magnesium Sulfate 4 gm/ Sodium (Chloride) 100 mls @ 50 mls/hr IV.SIG UNSCH PRN PRN Reason: For Magnesium 0.9 - 1.1 mg/dL Magnesium Sulfate 2 gm/ Sodium (Chloride) 100 mls @ 50 mls/hr IV.SIG UNSCH PRN PRN Reason: For Magnesium 1.2 - 1.6 mg/dL Potassium Chloride (Kcl 40 Meq Premix Inj) 40 meq in 100 mls @ 25 mls/hr IV.SIG Q2H PRN PRN Reason: For Potassium 2.8 - 3.2 mEq/L Potassium Chloride (Kcl 40 Meq Premix Inj) 40 meq in 100 mls @ 25 mls/hr IV.SIG UNSCH PRN PRN Reason: For Potassium 3.3 - 3.5 mEq/L Potassium Chloride (Kcl 20 Meq Premix Inj) 20 meq in 100 mls @ 50 mls/hr IV.SIG Q2H PRN PRN Reason: For Potassium 2.8 - 3.2 mEq/L Potassium Phosphate 30 mmol/ (Sodium Chloride) 260 mls @ 42 mls/hr IV.SIG UNSCH PRN PRN Reason: SEE LABEL COMMENTS Sodium Phosphate 30 mmol/ (Sodium Chloride) 260 mls @ 42 mls/hr IV.SIG UNSCH PRN PRN Reason: For Phosphorus < 2.5 mg/dL Last Infusion: 03/06/18 21:37 Dose: Infused Potassium Chloride (Kcl 20 Meq Premix Inj) 20 meq in 100 mls @ 50 mls/hr IV.SIG Q2H PRN PRN Reason: For Potassium 3.3 - 3.5 mEq/L Potassium Chloride/Dextrose/Sod Cl (D5w/1/2ns + Kcl 10 Meq Inj) 1,000 mls @ 75 mls/hr IV.CONT .[id number] [facility] Last Admin: 03/08/18 06:26 Dose: 75 mls/hr Lactulose (Lactulose Liq) 30 ml PO Q6H [facility] Last Admin: 03/08/18 04:06 Dose: 30 ml Lorazepam (Ativan) 1 mg PO Q4H PRN PRN Reason: for CIWA 8-10 Last Admin: 03/08/18 08:36 Dose: 1 mg Lorazepam (Ativan) 2 mg PO Q2H PRN PRN Reason: for CIWA 11-14 Lorazepam (Ativan Inj) 2 mg IV.PUSH Q2H PRN PRN Reason: for CIWA 11-14 Last Admin: 03/06/18 14:50 Dose: 2 mg Lorazepam (Ativan Inj) 2 mg IV.PUSH Q15M PRN PRN Reason: for CIWA > 20 Last Admin: 03/04/18 00:15 Dose: 2 mg Lorazepam (Ativan Inj) 1 mg IV.PUSH Q4H PRN PRN Reason: for CIWA 8-10 Lorazepam (Ativan Inj) 2 mg IV.PUSH Q1H PRN PRN Reason: for CIWA 15-20 Magnesium Oxide (Mag-Ox) 800 mg PO UNSCH PRN PRN Reason: For Magnesium 1.2 - 1.6 mg/dL Ondansetron HCl (Zofran Inj) 4 mg IV.PUSH Q6H PRN PRN Reason: NAUSEA OR VOMITING Last Admin: 03/04/18 20:37 Dose: 4 mg Potassium Bicarb/Potassium Chloride (K-Lyte Cl Eff) 50 meq PO UNSCH PRN PRN Reason: For Potassium 3.3 - 3.5 mEq/L Potassium Phosphate (K-Phos Original) 2,000 mg PO Q4H PRN PRN Reason: Phosphorus Less Than 2.5 mg/dL Potassium Phosphate (K-Phos Original) 2,000 mg PO UNSCH PRN PRN Reason: SEE LABEL COMMENTS Senna/Docusate Sodium (Brooke-Colace) 1 tab PO BID [facility] Last Admin: 03/08/18 08:36 Dose: 1 tab Sennosides (Senokot) 17.2 mg PO Q12H PRN PRN Reason: Moderate Constipation Sodium Chloride (Ns Flush) 2 ml IV.FLUSH PRN PRN PRN Reason: FLUSH AFTER USING IV ACCESS Sodium Chloride (Ns Flush) 2 ml IV.FLUSH BID [facility] Last Admin: 03/08/18 08:37 Dose: 2 ml Topiramate (Topamax) 50 mg PO BID [facility] Last Admin: 03/08/18 08:36 Dose: 50 mg Trazodone HCl (Desyrel) 300 mg PO HS [facility] Last Admin: 03/07/18 20:47 Dose: 300 mg Allergies/Adverse Reactions: Allergies Allergy/AdvReac Type Severity Reaction Status Date / Time acetaminophen AdvReac Intermediate pt has Verified 02/19/18 03:02 hepatitis c told not to take Review of Systems GENERAL: in NAD, SKIN: Warm and dry. HEAD: Atraumatic. Normocephalic. EYES: Pupils equal and round. No scleral icterus. ENT: No nasal bleeding or discharge. Mucous membranes pink and moist. NECK: Trachea midline. No JVD. CARDIOVASCULAR: Regular rate and rhythm. RESPIRATORY: No accessory muscle use. GASTROINTESTINAL: Abdomen soft, non-tender, nondistended. MUSCULOSKELETAL: Extremities without clubbing, cyanosis, or edema. No obvious deformities. NEUROLOGICAL: More alert this morning but does fall back asleep, oriented 2 not to date, follows some simple motor requests otherwise some nonsensical speech, no nuchal rigidity no temporal tenderness no involuntary movements noted no facial asymmetry, OU 3-2mm, eomi, VFF, No drift, Motor grossly within normal limits. Five out of 5 muscle strength in the arms and legs. Tone normal in all 4 limbs, sensory cerebellar testing unreliable at present msr 1-2 + sym, no clonus, planterflexor, PSYCHIATRIC: Calm All other systems reviewed negative except as stated in HPI Physical Exam Vital signs: Vital Signs 03/07/18 11:00 03/07/18 11:30 03/07/18 12:00 Temperature Pulse Rate 73 74 74 Respiratory Rate 12 12 12 Blood Pressure 174/99 H 167/97 H 160/92 H Pulse Oximetry 95 84 L 03/07/18 12:30 03/07/18 13:00 03/07/18 13:17 Temperature Pulse Rate 72 72 72 Respiratory Rate 11 L 12 13 Blood Pressure 180/103 H 189/101 H 183/138 H Pulse Oximetry 97 03/07/18 13:30 03/07/18 14:00 03/07/18 14:30 Temperature Pulse Rate 85 77 73 Respiratory Rate 14 19 17 Blood Pressure 139/93 H 171/93 H 198/102 H Pulse Oximetry 98 97 97 03/07/18 15:00 03/07/18 15:30 03/07/18 16:00 Temperature Pulse Rate 74 80 78 Respiratory Rate 12 17 16 Blood Pressure 190/103 H 199/86 H 170/91 H Pulse Oximetry 97 96 95 03/07/18 16:42 03/07/18 17:00 03/07/18 17:02 Temperature Pulse Rate 79 75 83 Respiratory Rate 24 28 H 17 Blood Pressure 191/100 H 169/96 H Pulse Oximetry 03/07/18 18:00 03/07/18 20:00 03/07/18 20:23 Temperature 97.8 F Pulse Rate 83 88 Respiratory Rate 18 16 Blood Pressure 129/88 Pulse Oximetry 97 97 03/08/18 00:00 03/08/18 04:00 03/08/18 07:38 Temperature 98 F 97.9 F Pulse Rate 83 73 Respiratory Rate 18 17 Blood Pressure 167/100 H 182/97 H Pulse Oximetry 93 L 95 95 Intake & Output 03/07/18 03/08/18 03/08/18 18:59 06:59 18:59 Intake Total 2049 375 / 375 Output Total 2099 190 / 1899 Balance -50 / -50 -1525 / -1525 Weight 70 kg Intake: IV 1999 255 / 255 D5W/1/2NS + KCL 10 mEq Inj , 1999 000 ML @ 75 mls/hr IV.CONT . [id number] [facility] Rx#:[id number] Thiamine Inj 500 MG In NS Inj 255 / 255 250 ML @ 62.5 mls/hr IV.SIG ONCE ONE Rx#:[id number] Oral 50 / 50 120 / 120 Output: Urine 1400 / 1400 1900 / 1900 Urine Amount (Catheter) 700 / 700 Straight 700 / 700 Other: Date of Last Bowel Movement 03/05/18 03/05/18 # Bowel Movements 0 0 - Urinary Catheter Management Indwelling Urethral Catheter Cath placed during this visit: yes Reason for continuing: Hourly intake/output Insertion date: 03/03/18 Insertion time: 17:55 Straight Cath placed during this visit: yes, but has since been removed by the nurse Reason for continuing: Not indwelling catheter Insertion date: 03/03/18 Removal date: 03/04/18 Removal time: 18:30 Objective Laboratory Results - last 24 hr 03/07/18 03/07/18 19:59 20:22 POC Glucose 122 H Ammonia 28 Microbiology 03/03/18 16:05 Aerobic Blood Culture - Preliminary Blood - Peripheral No growth in 4 days Anaerobic Blood Culture - Preliminary No growth in 4 days 03/03/18 16:00 Aerobic Blood Culture - Preliminary Blood - Peripheral No growth in 4 days Anaerobic Blood Culture - Preliminary No growth in 4 days Review/Management - Diagnosis (1) Hypersomnolence Code(s): G47.10 - Hypersomnia, unspecified Status: Acute Current Visit: Yes (2) Acute renal failure Code(s): N17.9 - Acute kidney failure, unspecified Status: Acute Current Visit: Yes (3) Bipolar disorder Code(s): F31.9 - Bipolar disorder, unspecified Status: Acute Current Visit: Yes (4) Altered mental status Code(s): R41.82 - Altered mental status, unspecified Status: Acute Current Visit: No (5) Elevated serum creatinine Code(s): R79.89 - Other specified abnormal findings of blood chemistry Status : Acute Current Visit: No (6) History of psychiatric care Code(s): Z92.89 - Personal history of other medical treatment Status: Acute Current Visit: No (7) Seizure disorder Code(s): G40.909 - Epilepsy, unspecified, not intractable, without status epilepticus Status: Acute Current Visit: No (8) Hypertension Code(s): I10 - Essential (primary) hypertension Status: Acute Current Visit : No (9) Chronic ischemic right MCA stroke Code(s): I69.30 - Unspecified sequelae of cerebral infarction Status: Acute Current Visit: Yes (10) Metabolic encephalopathy Code(s): G93.41 - Metabolic encephalopathy Status: Acute Current Visit: Yes (11) Vascular dementia Code(s): F01.50 - Vascular dementia without behavioral disturbance Status: Acute Current Visit: Yes - Review/Management Plan: Recurrent episodes of somnolence mental status changes with subsequent resolution Etiology may include breakthrough seizure versus toxic metabolic. Had renal failure hyperammonemia on arrival which has resolved Rhabdomyolysis related to fall versus seizure activity; resolving History of cognitive impairment-vascular versus Alzheimer type, bipolar disorder and old right MCA stroke Recommendations Doing better this morning MRI brain, pending We will add Provigil for hypersomnolence Hydration nutritional support Okay for fifth floor [facility] with telemetry from neurologic standpoint Follow exam (4) Altered mental status Qualifiers: Altered mental status type: unspecified Qualified Code(s): R41.82 - Altered mental status, unspecified (8) Hypertension Qualifiers: Hypertension type: essential hypertension Qualified Code(s): I10 - Essential (primary) hypertension
[2018-03-08 10:49] LABS: Anion Gap 7 meq/L (5-15); Blood Urea Nitrogen 2 mg/dL (7-18); Calcium 8.6 mg/dL (8.5-10.1); Carbon Dioxide 27.1 meq/L (21.0-32.0); Chloride 110 meq/L (98-107); Glomerular Filtration Rate Greater Than 89 mL/min (>89); Glucose,Random 106 mg/dL (74-106); Magnesium 1.5 mg/dL (1.5-2.5); Phosphorus 2.6 mg/dL (2.5-4.9); Potassium 4.4 meq/L (3.5-5.1)
[2018-03-08 10:50] LABS: Sodium 144 meq/L (136-145)
[2018-03-08 10:51] LABS: Creatine Kinase 649 U/L (39-308)
[2018-03-08 11:06] LABS: CKMB Percent 1.5 % (0.0-4.0); Creatine Kinase MB 9.8 ng/mL (0.5-3.6)
[2018-03-08] MEDS ORDERED: Gadobutrol PF 7.5 MMOL/7.5 ML Vial (for RAD) IV.SIG ONE (11:07)
--- NOTE | 2018-03-08 11:26 | MR ---
EXAM DATE: 03/08/2018 11:21 AM EDT AGE/SEX: 57 years / Male INDICATIONS: Confusion. CLINICAL DATA: This is the patient's initial encounter. Patient reports that signs and symptoms have been present for 1 day and indicates a pain score of 0/10. MEDICAL/SURGICAL HISTORY: Hepatitis C. Seizures. CABG. Fusion, lumbar. COMPARISON: No prior exams available for comparison. TECHNIQUE: Multiplanar, multisequence examination of the brain was performed without and with 7 ml Ga davist (gadobutrol) contrast as a single exam dose. 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 Ventricular size is appropriate. There is no parenchymal hemorrhage evident. There is no restricted d iffusion to suggest an acute infarct. There are no extra-axial fluid collections appreciated. Posterior fossa appears normal with a midline fourth ventricle. Significant motion artifact degrades the postcontrast images. The postcontrast axial images are of di agnostic quality.. There is no abnormal contrast enhancement. CONCLUSION: 1. Significant degradation by motion 2. 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 3. Otherwise negative for acute process Electronically signed by: Lázaro Contreras MD 03/08/2018 11:25 AM EDT
[2018-03-08] MEDS: Modafinil 200 MG Tablet PO SCH (11:46)
--- NOTE | 2018-03-08 15:43 | P.PNIM ---
Subjective Interval history: Patient is a little bit more alert today. Denies any chest pain or shortness of breath. Says that he smoked cannabis Physical Exam Vital signs: Vital Signs 03/07/18 16:00 03/07/18 16:42 03/07/18 17:00 Temperature Pulse Rate 78 79 75 Respiratory Rate 16 24 28 H Blood Pressure 170/91 H 191/100 H Pulse Oximetry 95 03/07/18 17:02 03/07/18 18:00 03/07/18 20:00 Temperature 97.8 F Pulse Rate 83 83 88 Respiratory Rate 17 18 16 Blood Pressure 169/96 H 129/88 Pulse Oximetry 97 03/07/18 20:23 03/08/18 00:00 03/08/18 04:00 Temperature 98 F 97.9 F Pulse Rate 83 73 Respiratory Rate 18 17 Blood Pressure 167/100 H 182/97 H Pulse Oximetry 97 93 L 95 03/08/18 06:00 03/08/18 06:15 03/08/18 07:00 Temperature Pulse Rate 67 68 82 Respiratory Rate 15 13 17 Blood Pressure 207/106 H 179/83 H 183/92 H Pulse Oximetry 98 90 L 03/08/18 07:38 03/08/18 08:00 03/08/18 08:01 Temperature Pulse Rate 83 69 Respiratory Rate 23 14 Blood Pressure 209/84 H Pulse Oximetry 95 03/08/18 08:30 03/08/18 08:39 03/08/18 08:42 Temperature Pulse Rate 78 72 83 Respiratory Rate 21 23 Blood Pressure 201/112 H 211/117 H 186/94 H Pulse Oximetry 94 L 96 03/08/18 09:00 03/08/18 09:20 03/08/18 09:42 Temperature Pulse Rate 69 90 71 Respiratory Rate 18 24 21 Blood Pressure 215/103 H 178/112 H 181/102 H Pulse Oximetry 92 L 97 03/08/18 10:00 03/08/18 10:31 03/08/18 11:31 Temperature Pulse Rate 68 67 71 Respiratory Rate 19 Blood Pressure 188/104 H Pulse Oximetry 96 03/08/18 11:36 03/08/18 11:43 03/08/18 12:00 Temperature Pulse Rate 100 H 73 73 Respiratory Rate 22 Blood Pressure 165/85 H 129/83 163/100 H Pulse Oximetry 92 L 95 03/08/18 13:00 03/08/18 14:00 Temperature Pulse Rate 75 80 Respiratory Rate 15 14 Blood Pressure 170/102 H 128/79 Pulse Oximetry 95 Intake & Output 03/07/18 03/08/18 03/08/18 18:59 06:59 18:59 Intake Total 2049 375 / 375 Output Total 2099 / 2099 1900 / 1900 1900 / 1900 Balance -50 / -50 -1525 / -1525 -1900 / -1900 Weight 70 kg Intake: IV 1999 255 / 255 D5W/1/2NS + KCL 10 mEq Inj , 1999 000 ML @ 75 mls/hr IV.CONT . [id number] JUDY Rx#:[id number] Thiamine Inj 500 MG In NS Inj 255 / 255 250 ML @ 62.5 mls/hr IV.SIG ONCE ONE Rx#:[id number] Oral 50 / 50 120 / 120 Output: Urine 1400 / 1400 1900 / 1900 1900 / 1900 Urine Amount (Catheter) 700 / 700 Straight 700 / 700 Other: Date of Last Bowel Movement 03/05/18 03/05/18 03/05/18 # Bowel Movements 0 0 Narrative: GENERAL: patient sitting up in bed. Awake, alert initially, however does fall asleep on further discussion. Oriented to hospital, not year. SKIN: Warm and dry. HEAD: Normocephalic. EYES: No scleral icterus. No injection or drainage. NECK: Supple, trachea midline. No JVD CARDIOVASCULAR: Regular rate and rhythm without murmurs, gallops, or rubs. RESPIRATORY: Breath sounds equal bilaterally. No accessory muscle use. GASTROINTESTINAL: Abdomen soft, non-tender, nondistended. MUSCULOSKELETAL: No cyanosis, or edema. BACK: Nontender without obvious deformity. No CVA tenderness. - Urinary Catheter Management Indwelling Urethral Catheter Cath placed during this visit: yes Reason for continuing: Hourly intake/output Insertion date: 03/03/18 Insertion time: 17:55 Straight Cath placed during this visit: yes, but has since been removed by the nurse Reason for continuing: Not indwelling catheter Insertion date: 03/03/18 Removal date: 03/04/18 Removal time: 18:30 Results - Labs CBC & Chem 7: 03/04/18 12:46 03/08/18 09:40 Laboratory Results - last 24 hr 03/07/18 03/07/18 03/08/18 19:59 20:22 09:40 Sodium 144 Potassium 4.4 Chloride 110 H Carbon Dioxide 27.1 Anion Gap 7 BUN 2 L Creatinine 0.66 Estimated GFR Greater than 89 POC Glucose 122 H Random Glucose 106 Calcium 8.6 Phosphorus 2.6 Magnesium 1.5 Ammonia 28 Total Creatine Kinase 649 H CK-MB (CK-2) 9.8 H CK-MB (CK-2) % 1.5 Microbiology 03/03/18 16:05 Blood - Peripheral Aerobic Blood Culture - Final No growth in 5 days 03/03/18 16:05 Blood - Peripheral Anaerobic Blood Culture - Final No growth in 5 days 03/03/18 16:00 Blood - Peripheral Aerobic Blood Culture - Final No growth in 5 days 03/03/18 16:00 Blood - Peripheral Anaerobic Blood Culture - Final No growth in 5 days - Imaging Impressions Head MRI 03/08/18 21:11 CONCLUSION: 1. Significant degradation by motion 2. 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 3. Otherwise negative for acute process Assessment and Plan - Plan Assessment: 57yM with heat stroke, acute metabolic encephalopathy, severe dehydration and associated organ dysfunction including acute rhabdomyolysis and kidney injury. Clinically improving. stable for transfer to floor. Acute metabolic encephalopathy - improving. Heat stroke -Heatstroke -Aggressive IV fluid hydration -External cooling as needed -CT head negative = Recent admission noted possibly secondary to spice. = 03/06. Mental status improving. EEG without epileptic activity. Did recent admission secondary to spice. Continue to monitor. =03/06. Still somnolent. I suspect that patient is not actually compliant with all of his medications at home, and now is getting very high doses of Seroquel. We'll discontinue Seroquel. Consult neurology. EEG without epileptic activity. = 03/08. Appreciate neurology assistance. MRI with old stroke, no acute findings. Started on Provigil for hypersomnolence. Continue to hold Seroquel. Transfer to fifth floor [facility] for neuro monitoring. Severe dehydration - continue iv fluid resuscitation Acute rhabdomyolysis - serial ck - ivf hydration = 03/05 rhabdomyolysis with CK 6000 improving. = 03/06. CK 3400. Improving. Continue IV fluids. =03/07. Improving. Continue IV fluids. Continue to monitor. = 03/08. CK improving in the 600s. //Hypophosphatemia. Phosphorus 1.5. Place. Monitor tomorrow. = Phosphorus 2.6. Improved after placement. Hypernatremia - persistent - free water deficit. - change fluids to 1/2 NS @ 150cc/hr. = Sodium decreasing slowly. Continue half normal saline. //hypertension. Systolic blood pressures up to 180s today. When necessary clonidine ordered. Hyperkalemia -Resolved. Acute kidney injury- improving. -Severe dehydration -Aggressive IV fluid resuscitation -Monitor I's and O's -Monitor electrolytes and creatinine - d/c beena. = 03/06. Creatinine 0.7. Resolved. Seizure disorder -Continue Depakote -Keppra -Lorazepam as needed = 03/06. EEG without epileptic activity. = Nephrology following. Appreciate assistance. Depression -Cymbalta -Quetiapine -Trazodone DVT GI prophylaxis -Teds SCDs -Lovenox -Regular diet Discharge Planning: home when improved. May need rehabilitation.
[2018-03-08] MEDS: Divalproex 500 MG ER Tablet PO SCH (21:18)
[2018-03-08] MEDS: traZODone 100 MG Tablet PO SCH (21:18)
[2018-03-08] MEDS: Enoxaparin Inj 40 MG/0.4 ML Syringe SQ SCH (21:18)
[2018-03-09 05:00] LABS: Anion Gap 10 meq/L (5-15); Blood Urea Nitrogen 4 mg/dL (7-18); Calcium 9.1 mg/dL (8.5-10.1); Carbon Dioxide 25.7 meq/L (21.0-32.0); Chloride 106 meq/L (98-107); Glomerular Filtration Rate Greater Than 89 mL/min (>89); Glucose,Random 88 mg/dL (74-106); Magnesium 1.7 mg/dL (1.5-2.5); Phosphorus 3.2 mg/dL (2.5-4.9); Sodium 142 meq/L (136-145)
[2018-03-09] MEDS: Modafinil 200 MG Tablet PO SCH (08:08)
[2018-03-09] MEDS: Senna/Docusate Sodium 8.6/50 MG Tablet PO SCH ×2 (08:08→21:28)
[2018-03-09] MEDS: Duloxetine 60 MG DR Capsule PO SCH (08:08)
[2018-03-09] MEDS: Topiramate 25 MG Tablet PO SCH ×2 (08:08→21:28)
[2018-03-09] MEDS: amLODIPine 10 MG Tablet PO SCH (08:08)
[2018-03-09] MEDS: KCL 10 mEq/D5W/NaCl 0.45% Inj 1,000 ML IV.CONT SCH ×2 (11:16→23:22)
--- NOTE | 2018-03-09 13:46 | P.PN ---
Subjective Interval history: Composition Molder Notes: 57-year-old male, with past medical history significant for seizure disorder, presents for an evaluation of altered mental status. He was found down outside by family. Is unknown how long he was outside. EMS states that on their arrival they found him hot and without sweats production. He was tachycardic and hypotensive at which time they applied ice packs to his groin and axilla started IV fluids. They gave him 0.4 mg of Narcan to which he did not respond. They state that he has started to come around mentally more while in route. He was resuscitated in the emergency department with aggressive IV fluid resuscitation and is admitted to ICU for further management. 03/04: more awake today. organ function improving. hypernatremia persists. temperature back to baseline. brief ROS negative. full ROS unobtainable due to somnolence. Hospitalist Notes: 03/09: alert and oriented, in his bedroom, but as per nurse has some disorientation occasional and try to jump over his rails. no nausea, vomit or diarrhea Physical Exam Vital signs: Vital Signs 03/08/18 14:00 03/08/18 15:00 03/08/18 16:00 Temperature Pulse Rate 80 76 89 Respiratory Rate 14 14 19 Blood Pressure 128/79 137/97 H 134/90 Pulse Oximetry 94 L 03/08/18 17:00 03/08/18 17:30 03/08/18 18:00 Temperature Pulse Rate 74 75 95 H Respiratory Rate 12 13 20 Blood Pressure 164/102 H 126/96 H Pulse Oximetry 91 L 03/08/18 18:30 03/08/18 19:00 03/08/18 19:30 Temperature Pulse Rate 89 91 H 92 H Respiratory Rate 14 14 18 Blood Pressure 125/88 Pulse Oximetry 72 L 03/08/18 20:00 03/08/18 20:30 03/08/18 21:00 Temperature Pulse Rate 79 88 88 Respiratory Rate 15 17 15 Blood Pressure 153/92 H 125/74 Pulse Oximetry 03/08/18 21:30 03/08/18 22:00 03/08/18 22:30 Temperature Pulse Rate 102 H 83 87 Respiratory Rate 19 18 15 Blood Pressure 133/96 H Pulse Oximetry 78 L 97 82 L 03/08/18 23:00 03/08/18 23:01 03/08/18 23:15 Temperature Pulse Rate 83 82 89 Respiratory Rate 15 15 18 Blood Pressure 175/107 H 147/81 H Pulse Oximetry 70 L 73 L 97 03/08/18 23:30 03/09/18 00:00 03/09/18 00:02 Temperature Pulse Rate 82 79 92 H Respiratory Rate 15 11 L 20 Blood Pressure 161/102 H 119/82 Pulse Oximetry 98 99 97 03/09/18 00:30 03/09/18 01:00 03/09/18 01:30 Temperature Pulse Rate 77 77 78 Respiratory Rate 14 12 14 Blood Pressure 159/96 H Pulse Oximetry 70 L 03/09/18 02:00 03/09/18 02:30 03/09/18 03:00 Temperature Pulse Rate 80 91 H 71 Respiratory Rate 18 24 22 Blood Pressure 154/108 H 161/97 H Pulse Oximetry 99 97 03/09/18 03:30 03/09/18 04:00 03/09/18 04:30 Temperature Pulse Rate 94 H 80 81 Respiratory Rate 31 H 23 23 Blood Pressure 148/92 H Pulse Oximetry 03/09/18 05:00 03/09/18 05:30 03/09/18 06:00 Temperature Pulse Rate 75 84 77 Respiratory Rate 17 23 14 Blood Pressure 164/84 H 155/94 H Pulse Oximetry 94 L 95 97 03/09/18 06:30 03/09/18 07:00 03/09/18 07:30 Temperature 98 F Pulse Rate 80 101 H 87 Respiratory Rate 19 25 H 25 H Blood Pressure 136/84 Pulse Oximetry 94 L 96 03/09/18 08:00 03/09/18 08:30 03/09/18 09:00 Temperature Pulse Rate 78 105 H 82 Respiratory Rate 16 Blood Pressure 150/81 H 139/82 Pulse Oximetry 95 03/09/18 09:14 03/09/18 09:30 03/09/18 10:00 Temperature Pulse Rate 83 87 Respiratory Rate 16 22 Blood Pressure 133/83 Pulse Oximetry 96 03/09/18 10:30 03/09/18 11:00 03/09/18 11:30 Temperature Pulse Rate 102 H 85 97 H Respiratory Rate Blood Pressure 120/77 Pulse Oximetry 03/09/18 12:00 03/09/18 12:30 Temperature Pulse Rate 87 88 Respiratory Rate 15 16 Blood Pressure 122/77 Pulse Oximetry Intake & Output 03/08/18 03/09/18 03/09/18 18:59 06:59 18:59 Intake Total 1250 / 1250 1000 / 1000 Output Total 2300 / 2300 1425 / 1425 Balance -2300 / -2300 -175 / -175 1000 / 1000 Weight 76.5 kg Intake: IV 1000 / 1000 1000 / 1000 D5W/1/2NS + KCL 10 mEq Inj 1, 1000 / 1000 1000 / 1000 000 ML @ 75 mls/hr IV.CONT . [id number] JUDY Rx#:[id number] Oral 250 / 250 Output: Urine 2300 / 2300 Urine Amount (Catheter) 1425 / 1425 Condom 1425 / 1425 Other: # Incontinent Voids 2 Date of Last Bowel Movement 03/05/18 03/05/18 03/09/18 # Bowel Movements 1 Narrative: GENERAL: patient sitting up in bed. alert and oriented at this time. SKIN: Warm and dry. HEAD: Normocephalic. EYES: No scleral icterus. No injection or drainage. NECK: Supple, trachea midline. No JVD CARDIOVASCULAR: Regular rate and rhythm without murmurs, gallops, or rubs. RESPIRATORY: Breath sounds equal bilaterally. No accessory muscle use. GASTROINTESTINAL: Abdomen soft, non-tender, nondistended. MUSCULOSKELETAL: No cyanosis, or edema. BACK: Nontender without obvious deformity. No CVA tenderness. - Urinary Catheter Management Indwelling Urethral Catheter Cath placed during this visit: yes Reason for continuing: Hourly intake/output Insertion date: 03/03/18 Insertion time: 17:55 Straight Cath placed during this visit: yes, but has since been removed by the nurse Reason for continuing: Not indwelling catheter Insertion date: 03/03/18 Removal date: 03/04/18 Removal time: 18:30 Condom Cath placed during this visit: no Results - Labs CBC & Chem 7: 03/04/18 12:46 03/09/18 04:03 Laboratory Results - last 24 hr 03/09/18 04:03 Sodium 142 Potassium 4.0 Chloride 106 Carbon Dioxide 25.7 Anion Gap 10 BUN 4 L Creatinine 0.75 Estimated GFR Greater than 89 Random Glucose 88 Calcium 9.1 Phosphorus 3.2 Magnesium 1.7 Microbiology 03/03/18 16:05 Blood - Peripheral Aerobic Blood Culture - Final No growth in 5 days 03/03/18 16:05 Blood - Peripheral Anaerobic Blood Culture - Final No growth in 5 days 03/03/18 16:00 Blood - Peripheral Aerobic Blood Culture - Final No growth in 5 days 03/03/18 16:00 Blood - Peripheral Anaerobic Blood Culture - Final No growth in 5 days - Imaging Head MRI 03/08/18 21:11 CONCLUSION: 1. Significant degradation by motion 2. 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 3. Otherwise negative for acute process Assessment and Plan - Plan 57yM with heat stroke, acute metabolic encephalopathy, severe dehydration and associated organ dysfunction including acute rhabdomyolysis and kidney injury. Clinically improving. stable for transfer to floor. Acute metabolic encephalopathy - improving. Heat stroke -Heatstroke -Aggressive IV fluid hydration -External cooling as needed -CT head negative = Recent admission noted possibly secondary to spice. = 03/06. Mental status improving. EEG without epileptic activity. Did recent admission secondary to spice. Continue to monitor. =03/06. Still somnolent. I suspect that patient is not actually compliant with all of his medications at home, and now is getting very high doses of Seroquel. We'll discontinue Seroquel. Consult neurology. EEG without epileptic activity. = 03/08. Appreciate neurology assistance. MRI with old stroke, no acute findings. Started on Provigil for hypersomnolence. Continue to hold Seroquel. Transfer to fifth [facility] for neuro monitoring. Severe dehydration - Improved continue IV fluids. Acute rhabdomyolysis - serial ck - ivf hydration = 03/05 rhabdomyolysis with CK 6000 improving. = 03/06. CK 3400. Improving. Continue IV fluids. =03/07. Improving. Continue IV fluids. Continue to monitor. = 03/08. CK improving in the 600s. //electrolyte derangement replaced and following. Acute kidney injury- improved. Seizure disorder -Continue Depakote -Keppra -Lorazepam as needed = 03/06. EEG without epileptic activity. = Neurology following. Appreciate assistance. Depression -Cymbalta -Quetiapine -Trazodone DVT GI prophylaxis -Teds SCDs -Lovenox -Regular diet Code Status: full code Discussed Condition With: patient and nurse. Discharge Planning: Expected in the next two to three days.
--- NOTE | 2018-03-09 15:16 | P.PNNEU ---
Subjective Subjective Comments: no cp, no dyspnea, no moore, no focal weakness, no vision loss Active Medications: Active Medications Acetaminophen (Tylenol) 650 mg PO Q6H PRN PRN Reason: PAIN 1-10 AND/OR FEVER >101F Albuterol (Duoneb Neb (Prn)) 1 ampul NEB Q2HR NEB PRN PRN Reason: WHEEZING Amlodipine Besylate (Norvasc) 10 mg PO DAILY [facility] Last Admin: 03/09/18 08:08 Dose: 10 mg Bisacodyl (Dulcolax Supp) 10 mg RECTAL DAILY PRN PRN Reason: SEVERE CONSITIPATION Clonidine HCl (Catapres) 0.1 mg PO Q6H PRN PRN Reason: SBP>160, DBP>90 Last Admin: 03/08/18 13:06 Dose: 0.1 mg Divalproex Sodium (Depakote Er) 500 mg PO HS [facility] Last Admin: 03/08/18 21:18 Dose: 500 mg Duloxetine HCl (Cymbalta) 60 mg PO DAILY [facility] Last Admin: 03/09/18 08:08 Dose: 60 mg Enalaprilat (Vasotec Inj) 1.25 mg IV.PUSH Q6H PRN PRN Reason: SBP>160, DBP>90 Last Admin: 03/08/18 12:20 Dose: 1.25 mg Enoxaparin Sodium (Lovenox Inj) 40 mg SQ Q24H [facility] Last Admin: 03/08/18 21:18 Dose: 40 mg Flumazenil (Romazecon Inj) 0.2 mg IV.PUSH Q1M PRN PRN Reason: OVERSEDATION Haloperidol Lactate (Haldol Inj) 1 mg IV.PUSH Q15M PRN PRN Reason: for severe agitation Magnesium Sulfate 4 gm/ Sodium (Chloride) 100 mls @ 50 mls/hr IV.SIG UNSCH PRN PRN Reason: For Magnesium 0.9 - 1.1 mg/dL Magnesium Sulfate 2 gm/ Sodium (Chloride) 100 mls @ 50 mls/hr IV.SIG UNSCH PRN PRN Reason: For Magnesium 1.2 - 1.6 mg/dL Potassium Chloride/Dextrose/Sod Cl (D5w/1/2ns + Kcl 10 Meq Inj) 1,000 mls @ 75 mls/hr IV.CONT .[id number] [facility] Last Admin: 03/09/18 11:16 Dose: 75 mls/hr Lactulose (Lactulose Liq) 30 ml PO Q6H [facility] Last Admin: 03/09/18 11:16 Dose: Not Given Magnesium Oxide (Mag-Ox) 800 mg PO UNSCH PRN PRN Reason: For Magnesium 1.2 - 1.6 mg/dL Modafinil (Provigil) 200 mg PO DAILY [facility] Last Admin: 03/09/18 08:08 Dose: 200 mg Ondansetron HCl (Zofran Inj) 4 mg IV.PUSH Q6H PRN PRN Reason: NAUSEA OR VOMITING Last Admin: 03/04/18 20:37 Dose: 4 mg Senna/Docusate Sodium (Brooke-Colace) 1 tab PO BID [facility] Last Admin: 03/09/18 08:08 Dose: 1 tab Sennosides (Senokot) 17.2 mg PO Q12H PRN PRN Reason: Moderate Constipation Sodium Chloride (Ns Flush) 2 ml IV.FLUSH PRN PRN PRN Reason: FLUSH AFTER USING IV ACCESS Sodium Chloride (Ns Flush) 2 ml IV.FLUSH BID [facility] Last Admin: 03/09/18 08:08 Dose: 2 ml Topiramate (Topamax) 50 mg PO BID [facility] Last Admin: 03/09/18 08:08 Dose: 50 mg Trazodone HCl (Desyrel) 300 mg PO HS [facility] Last Admin: 03/08/18 21:18 Dose: 300 mg Allergies/Adverse Reactions: Allergies Allergy/AdvReac Type Severity Reaction Status Date / Time acetaminophen AdvReac Intermediate pt has Verified 02/19/18 03:02 hepatitis c told not to take Review of Systems All other systems reviewed negative except as stated in HPI Physical Exam Vital signs: Vital Signs 03/08/18 16:00 03/08/18 17:00 03/08/18 17:30 Temperature Pulse Rate 89 74 75 Respiratory Rate 19 12 13 Blood Pressure 134/90 164/102 H Pulse Oximetry 94 L 91 L 03/08/18 18:00 03/08/18 18:30 03/08/18 19:00 Temperature Pulse Rate 95 H 89 91 H Respiratory Rate 20 14 14 Blood Pressure 126/96 H 125/88 Pulse Oximetry 72 L 03/08/18 19:30 03/08/18 20:00 03/08/18 20:30 Temperature Pulse Rate 92 H 79 88 Respiratory Rate 18 15 17 Blood Pressure 153/92 H Pulse Oximetry 03/08/18 21:00 03/08/18 21:30 03/08/18 22:00 Temperature Pulse Rate 88 102 H 83 Respiratory Rate 15 19 18 Blood Pressure 125/74 133/96 H Pulse Oximetry 78 L 97 03/08/18 22:30 03/08/18 23:00 03/08/18 23:01 Temperature Pulse Rate 87 83 82 Respiratory Rate 15 15 15 Blood Pressure 175/107 H Pulse Oximetry 82 L 70 L 73 L 03/08/18 23:15 03/08/18 23:30 03/09/18 00:00 Temperature Pulse Rate 89 82 79 Respiratory Rate 18 15 11 L Blood Pressure 147/81 H 161/102 H Pulse Oximetry 97 98 99 03/09/18 00:02 03/09/18 00:30 03/09/18 01:00 Temperature Pulse Rate 92 H 77 77 Respiratory Rate 20 14 12 Blood Pressure 119/82 159/96 H Pulse Oximetry 97 70 L 03/09/18 01:30 03/09/18 02:00 03/09/18 02:30 Temperature Pulse Rate 78 80 91 H Respiratory Rate 14 18 24 Blood Pressure 154/108 H Pulse Oximetry 99 97 03/09/18 03:00 03/09/18 03:30 03/09/18 04:00 Temperature Pulse Rate 71 94 H 80 Respiratory Rate 22 31 H 23 Blood Pressure 161/97 H 148/92 H Pulse Oximetry 03/09/18 04:30 03/09/18 05:00 03/09/18 05:30 Temperature Pulse Rate 81 75 84 Respiratory Rate 23 17 23 Blood Pressure 164/84 H Pulse Oximetry 94 L 95 03/09/18 06:00 03/09/18 06:30 03/09/18 07:00 Temperature 98 F Pulse Rate 77 80 101 H Respiratory Rate 14 19 25 H Blood Pressure 155/94 H 136/84 Pulse Oximetry 97 94 L 03/09/18 07:30 03/09/18 08:00 03/09/18 08:30 Temperature Pulse Rate 87 78 105 H Respiratory Rate 25 H 16 Blood Pressure 150/81 H Pulse Oximetry 96 95 03/09/18 09:00 03/09/18 09:14 03/09/18 09:30 Temperature Pulse Rate 82 83 Respiratory Rate 16 Blood Pressure 139/82 Pulse Oximetry 96 03/09/18 10:00 03/09/18 10:30 03/09/18 11:00 Temperature Pulse Rate 87 102 H 85 Respiratory Rate 22 Blood Pressure 133/83 120/77 Pulse Oximetry 03/09/18 11:30 03/09/18 12:00 03/09/18 12:30 Temperature Pulse Rate 97 H 87 88 Respiratory Rate 15 16 Blood Pressure 122/77 Pulse Oximetry Intake & Output 03/08/18 03/09/18 03/09/18 18:59 06:59 18:59 Intake Total 1250 / 1250 1000 / 1000 Output Total 2300 / 2300 1425 / 1425 Balance -2300 / -2300 -175 / -175 1000 / 1000 Weight 76.5 kg Intake: IV 1000 / 1000 1000 / 1000 D5W/1/2NS + KCL 10 mEq Inj 1, 1000 / 1000 1000 / 1000 000 ML @ 75 mls/hr IV.CONT . [id number] [facility] Rx#:[id number] Oral 250 / 250 Output: Urine 2300 / 2300 Urine Amount (Catheter) 1425 / 1425 Condom 1425 / 1425 Other: # Incontinent Voids 2 Date of Last Bowel Movement 03/05/18 03/05/18 03/09/18 # Bowel Movements 1 Narrative: GENERAL: in NAD, SKIN: Warm and dry. HEAD: Atraumatic. Normocephalic. EYES: Pupils equal and round. No scleral icterus. ENT: No nasal bleeding or discharge. Mucous membranes pink and moist. NECK: Trachea midline. No JVD. CARDIOVASCULAR: Regular rate and rhythm. RESPIRATORY: No accessory muscle use. GASTROINTESTINAL: Abdomen soft, non-tender, nondistended. MUSCULOSKELETAL: Extremities without clubbing, cyanosis, or edema. No obvious deformities. NEUROLOGICAL: Alert sitting up in bed, pleasant oriented 2 not to date, follows some simple motor requests, more focused thoughts, no nuchal rigidity no temporal tenderness no involuntary movements noted no facial asymmetry, OU 3- 2mm, eomi, VFF, No drift, Motor grossly within normal limits. Five out of 5 muscle strength in the arms and legs. Tone normal in all 4 limbs, sensory cerebellar testing unreliable at present msr 1-2+ sym, no clonus, planterflexor , PSYCHIATRIC: Calm - Constitutional no acute distress - Routine HEENT Exam Head: Present: normocephalic - Urinary Catheter Management Indwelling Urethral Catheter Cath placed during this visit: yes Reason for continuing: Hourly intake/output Insertion date: 03/03/18 Insertion time: 17:55 Straight Cath placed during this visit: yes, but has since been removed by the nurse Reason for continuing: Not indwelling catheter Insertion date: 03/03/18 Removal date: 03/04/18 Removal time: 18:30 Condom Cath placed during this visit: no Objective Laboratory Results - last 24 hr 03/09/18 04:03 Sodium 142 Potassium 4.0 Chloride 106 Carbon Dioxide 25.7 Anion Gap 10 BUN 4 L Creatinine 0.75 Estimated GFR Greater than 89 Random Glucose 88 Calcium 9.1 Phosphorus 3.2 Magnesium 1.7 Review/Management - Diagnosis (1) Hypersomnolence Code(s): G47.10 - Hypersomnia, unspecified Status: Acute Current Visit: Yes (2) Acute renal failure Code(s): N17.9 - Acute kidney failure, unspecified Status: Acute Current Visit: Yes (3) Bipolar disorder Code(s): F31.9 - Bipolar disorder, unspecified Status: Acute Current Visit: Yes (4) Altered mental status Code(s): R41.82 - Altered mental status, unspecified Status: Acute Current Visit: No (5) Elevated serum creatinine Code(s): R79.89 - Other specified abnormal findings of blood chemistry Status : Acute Current Visit: No (6) History of psychiatric care Code(s): Z92.89 - Personal history of other medical treatment Status: Acute Current Visit: No (7) Seizure disorder Code(s): G40.909 - Epilepsy, unspecified, not intractable, without status epilepticus Status: Acute Current Visit: No (8) Hypertension Code(s): I10 - Essential (primary) hypertension Status: Acute Current Visit : No (9) Chronic ischemic right MCA stroke Code(s): I69.30 - Unspecified sequelae of cerebral infarction Status: Acute Current Visit: Yes (10) Metabolic encephalopathy Code(s): G93.41 - Metabolic encephalopathy Status: Acute Current Visit: Yes (11) Vascular dementia Code(s): F01.50 - Vascular dementia without behavioral disturbance Status: Acute Current Visit: Yes - Review/Management Plan: Recurrent episodes of somnolence mental status changes with subsequent resolution Etiology may include breakthrough seizure versus toxic metabolic. Had renal failure hyperammonemia on arrival which has resolved Rhabdomyolysis related to fall versus seizure activity; resolving History of cognitive impairment-vascular versus Alzheimer type, bipolar disorder and old right MCA stroke MRI negative for acute stroke On Topamax, Depakote Recommendations Neuro improved Continue Provigil for somnolence Okay to transfer to a regular floor with telemetry Discharge planning home versus rehab (4) Altered mental status Qualifiers: Altered mental status type: unspecified Qualified Code(s): R41.82 - Altered mental status, unspecified (8) Hypertension Qualifiers: Hypertension type: essential hypertension Qualified Code(s): I10 - Essential (primary) hypertension
[2018-03-09] MEDS: Divalproex 500 MG ER Tablet PO SCH (21:28)
[2018-03-09] MEDS: traZODone 100 MG Tablet PO SCH (21:28)
[2018-03-09] MEDS: Enoxaparin Inj 40 MG/0.4 ML Syringe SQ SCH (21:28)
[2018-03-10 06:25] LABS: Magnesium 1.8 mg/dL (1.5-2.5); Phosphorus 3.3 mg/dL (2.5-4.9); Potassium 4.3 meq/L (3.5-5.1)
[2018-03-10] MEDS: Duloxetine 60 MG DR Capsule PO SCH (08:28)
[2018-03-10] MEDS: amLODIPine 10 MG Tablet PO SCH (08:28)
[2018-03-10] MEDS: Divalproex 500 MG ER Tablet PO SCH ×2 (08:28→21:24)
[2018-03-10] MEDS: Senna/Docusate Sodium 8.6/50 MG Tablet PO SCH ×2 (08:28→21:25)
[2018-03-10] MEDS: Modafinil 200 MG Tablet PO SCH (08:29)
[2018-03-10] MEDS: Topiramate 25 MG Tablet PO SCH ×2 (08:29→21:25)
[2018-03-10] MEDS: KCL 10 mEq/D5W/NaCl 0.45% Inj 1,000 ML IV.CONT SCH (12:02)
--- NOTE | 2018-03-10 15:46 | P.PN ---
Subjective Interval history: Crematory Attendant Notes: 57-year-old male, with past medical history significant for seizure disorder, presents for an evaluation of altered mental status. He was found down outside by family. Is unknown how long he was outside. EMS states that on their arrival they found him hot and without sweats production. He was tachycardic and hypotensive at which time they applied ice packs to his groin and axilla started IV fluids. They gave him 0.4 mg of Narcan to which he did not respond. They state that he has started to come around mentally more while in route. He was resuscitated in the emergency department with aggressive IV fluid resuscitation and is admitted to ICU for further management. 03/04: more awake today. organ function improving. hypernatremia persists. temperature back to baseline. brief ROS negative. full ROS unobtainable due to somnolence. Hospitalist Notes: 03/09: alert and oriented, in his bedroom, but as per nurse has some disorientation occasional and try to jump over his rails. 03/10: Stable, no nausea, vomit or diarrhea, improving condition, following manager licensing and PT for discharge expected by tomorrow. Physical Exam Vital signs: Vital Signs 03/09/18 16:00 03/09/18 16:05 03/09/18 16:30 Temperature Pulse Rate 93 H 93 H 96 H Respiratory Rate 21 23 27 H Blood Pressure Pulse Oximetry 03/09/18 17:00 03/09/18 17:30 03/09/18 18:00 Temperature Pulse Rate 86 84 81 Respiratory Rate 16 14 15 Blood Pressure 139/84 147/83 H Pulse Oximetry 97 95 97 03/09/18 18:30 03/09/18 19:00 03/09/18 19:01 Temperature Pulse Rate 98 H 97 H 84 Respiratory Rate 21 22 17 Blood Pressure 160/83 H Pulse Oximetry 03/09/18 19:30 03/09/18 20:00 03/09/18 20:10 Temperature 98.0 F Pulse Rate 80 83 Respiratory Rate 16 12 Blood Pressure 158/82 H Pulse Oximetry 94 L 96 03/09/18 20:30 03/09/18 21:00 03/09/18 21:30 Temperature Pulse Rate 91 H 100 H 92 H Respiratory Rate 15 22 14 Blood Pressure Pulse Oximetry 97 91 L 99 03/09/18 22:00 03/09/18 22:30 03/09/18 23:00 Temperature Pulse Rate 85 85 92 H Respiratory Rate 12 13 22 Blood Pressure Pulse Oximetry 99 97 90 L 03/09/18 23:30 03/10/18 00:00 03/10/18 00:30 Temperature 98 F Pulse Rate 88 87 91 H Respiratory Rate 30 H 16 15 Blood Pressure Pulse Oximetry 97 97 98 03/10/18 00:51 03/10/18 01:00 03/10/18 01:30 Temperature Pulse Rate 88 86 87 Respiratory Rate 14 14 19 Blood Pressure 137/82 130/81 Pulse Oximetry 98 97 97 03/10/18 02:00 03/10/18 02:30 03/10/18 03:00 Temperature Pulse Rate 97 H 86 84 Respiratory Rate 21 19 15 Blood Pressure 134/83 144/84 H Pulse Oximetry 99 97 96 03/10/18 03:30 03/10/18 04:00 03/10/18 04:19 Temperature 97.8 F Pulse Rate 86 97 H 87 Respiratory Rate 13 29 H 19 Blood Pressure 122/91 H Pulse Oximetry 96 87 L 88 L 03/10/18 04:30 03/10/18 05:00 03/10/18 05:30 Temperature Pulse Rate 83 87 89 Respiratory Rate 12 17 16 Blood Pressure 156/89 H Pulse Oximetry 97 98 97 03/10/18 06:00 03/10/18 06:30 03/10/18 07:00 Temperature Pulse Rate 84 235 H 101 H Respiratory Rate 17 29 H 23 Blood Pressure 144/92 H 140/84 Pulse Oximetry 98 93 L 99 03/10/18 07:13 03/10/18 07:30 03/10/18 08:00 Temperature 98.4 F Pulse Rate 85 94 H Respiratory Rate 22 16 Blood Pressure 123/75 Pulse Oximetry 100 100 96 03/10/18 08:30 03/10/18 09:00 03/10/18 09:30 Temperature Pulse Rate 90 87 95 H Respiratory Rate 22 15 29 H Blood Pressure 147/86 H Pulse Oximetry 97 98 98 03/10/18 10:00 03/10/18 10:30 03/10/18 11:00 Temperature Pulse Rate 95 H 88 90 Respiratory Rate 12 15 11 L Blood Pressure 135/87 127/82 Pulse Oximetry 98 98 98 03/10/18 11:30 03/10/18 12:00 03/10/18 12:30 Temperature 98.4 F Pulse Rate 90 92 H 91 H Respiratory Rate 19 21 12 Blood Pressure 119/76 Pulse Oximetry 98 97 98 Intake & Output 03/09/18 03/10/18 03/10/18 18:59 06:59 18:59 Intake Total 1000 / 1000 1959 / 1960 1000 / 1000 Output Total 1200 / 1200 1800 / 1800 Balance -200 / -200 160 / 160 1000 / 1000 Weight 69 kg Intake: IV 1000 / 1000 1000 / 1000 1000 / 1000 D5W/1/2NS + KCL 10 mEq Inj 1, 1000 / 1000 1000 / 1000 1000 / 1000 000 ML @ 75 mls/hr IV.CONT . [id number] [facility] Rx#:[id number] Oral 960 / 960 Output: Urine Amount (Catheter) 1200 / 1200 1800 / 1800 Condom 1200 / 1200 1800 / 1800 Other: Date of Last Bowel Movement 03/09/18 03/09/18 03/10/18 # Bowel Movements 1 0 Narrative: GENERAL: in NAD, SKIN: Warm and dry. HEAD: Atraumatic. Normocephalic. EYES: Pupils equal and round. No scleral icterus. ENT: No nasal bleeding or discharge. Mucous membranes pink and moist. NECK: Trachea midline. No JVD. CARDIOVASCULAR: Regular rate and rhythm. RESPIRATORY: No accessory muscle use. GASTROINTESTINAL: Abdomen soft, non-tender, nondistended. MUSCULOSKELETAL: Extremities without clubbing, cyanosis, or edema. No obvious deformities. NEUROLOGICAL: Alert sitting up in bed, pleasant oriented 3. - Urinary Catheter Management Indwelling Urethral Catheter Cath placed during this visit: yes Reason for continuing: Hourly intake/output Insertion date: 03/03/18 Insertion time: 17:55 Straight Cath placed during this visit: yes, but has since been removed by the nurse Reason for continuing: Not indwelling catheter Insertion date: 03/03/18 Removal date: 03/04/18 Removal time: 18:30 Condom Cath placed during this visit: no Results - Labs CBC & Chem 7: 03/04/18 12:46 03/10/18 05:02 Laboratory Results - last 24 hr 03/10/18 05:02 Sodium 139 Potassium 4.3 Chloride 105 Carbon Dioxide 25.0 Anion Gap 9 BUN 8 Creatinine 0.94 Estimated GFR 83 L Random Glucose 78 Calcium 10.0 D Phosphorus 3.3 Magnesium 1.8 Assessment and Plan - Plan 57yM with heat stroke, acute metabolic encephalopathy, severe dehydration and associated organ dysfunction including acute rhabdomyolysis and kidney injury. Clinically improving. stable for transfer to floor. Acute metabolic encephalopathy - improved Heat stroke -Heatstroke -Aggressive IV fluid hydration -External cooling as needed -CT head negative, EEG without epileptic activity. discontinued Seroquel, Neurology following, MRI with old stroke, no acute findings. Severe dehydration - Improved continue IV fluids. Acute rhabdomyolysis Improving. - Hydration given, improved CK to 600s. //electrolyte derangement replaced and following. Acute kidney injury- improved. Seizure disorder -Continue Depakote -Keppra -Lorazepam as needed = 03/06. EEG without epileptic activity. = Neurology following. Appreciate assistance. Depression -Cymbalta -Quetiapine -Trazodone DVT GI prophylaxis -Teds SCDs -Lovenox -Regular diet Code Status: Full Code. Discussed Condition With: Patient and nurse. Discharge Planning: Expected for tomorrow.
[2018-03-10] MEDS: Enoxaparin Inj 40 MG/0.4 ML Syringe SQ SCH (21:24)
[2018-03-10] MEDS: traZODone 100 MG Tablet PO SCH (21:24)
[2018-03-11] MEDS: KCL 10 mEq/D5W/NaCl 0.45% Inj 1,000 ML IV.CONT SCH ×2 (01:00→15:39)
[2018-03-11 07:48] LABS: Calcium 9.9 mg/dL (8.5-10.1); Carbon Dioxide 27.2 meq/L (21.0-32.0); Phosphorus 2.7 mg/dL (2.5-4.9); Potassium 3.8 meq/L (3.5-5.1)
--- NOTE | 2018-03-11 08:17 | P.PN ---
Subjective Interval history: Disposal Man Notes: 57-year-old male, with past medical history significant for seizure disorder, presents for an evaluation of altered mental status. He was found down outside by family. Is unknown how long he was outside. EMS states that on their arrival they found him hot and without sweats production. He was tachycardic and hypotensive at which time they applied ice packs to his groin and axilla started IV fluids. They gave him 0.4 mg of Narcan to which he did not respond. They state that he has started to come around mentally more while in route. He was resuscitated in the emergency department with aggressive IV fluid resuscitation and is admitted to ICU for further management. 03/04: more awake today. organ function improving. hypernatremia persists. temperature back to baseline. brief ROS negative. full ROS unobtainable due to somnolence. Hospitalist Notes: 03/09: alert and oriented, in his bedroom, but as per nurse has some disorientation occasional and try to jump over his rails. 03/10: Stable, improving condition, following video arcade manager and PT for discharge expected by tomorrow. 03/11: Seen in his bedroom and discussed with nurse Rajani, also with Wardrobe Coordinator and Physical therapy, he has the recommendations for SNF placement, but has no privileges for SNF placement, will continue in house until able to be sent to the community, no nausea, vomit or diarrhea. Physical Exam Vital signs: Vital Signs 03/10/18 08:30 03/10/18 09:00 03/10/18 09:30 Temperature Pulse Rate 90 87 95 H Respiratory Rate 22 15 29 H Blood Pressure 147/86 H Pulse Oximetry 97 98 98 03/10/18 10:00 03/10/18 10:30 03/10/18 11:00 Temperature Pulse Rate 95 H 88 90 Respiratory Rate 12 15 11 L Blood Pressure 135/87 127/82 Pulse Oximetry 98 98 98 03/10/18 11:30 03/10/18 12:00 03/10/18 12:30 Temperature 98.4 F Pulse Rate 90 92 H 91 H Respiratory Rate 19 21 12 Blood Pressure 119/76 Pulse Oximetry 98 97 98 03/10/18 13:00 03/10/18 13:30 03/10/18 14:00 Temperature Pulse Rate 92 H 92 H 103 H Respiratory Rate 23 13 31 H Blood Pressure 105/77 Pulse Oximetry 96 98 88 L 03/10/18 14:01 03/10/18 14:13 03/10/18 14:30 Temperature Pulse Rate 101 H 100 H 93 H Respiratory Rate 21 40 H 14 Blood Pressure 138/112 H 115/81 Pulse Oximetry 94 L 97 96 03/10/18 15:00 03/10/18 15:30 03/10/18 16:00 Temperature 98.4 F Pulse Rate 92 H 111 H 84 Respiratory Rate 17 25 H 15 Blood Pressure 123/85 131/82 Pulse Oximetry 94 L 99 96 03/10/18 16:30 03/10/18 17:00 03/10/18 17:30 Temperature Pulse Rate 90 91 H 90 Respiratory Rate 25 H 16 14 Blood Pressure 139/83 Pulse Oximetry 79 L 96 96 03/10/18 18:00 03/10/18 18:30 03/10/18 19:00 Temperature Pulse Rate 93 H 97 H 101 H Respiratory Rate 12 21 22 Blood Pressure 143/87 H Pulse Oximetry 96 97 95 03/10/18 19:01 03/10/18 19:30 03/10/18 20:00 Temperature 98.6 F Pulse Rate 97 H 86 91 H Respiratory Rate 23 16 28 H Blood Pressure 136/76 Pulse Oximetry 93 L 99 92 L 03/10/18 20:01 03/10/18 20:30 03/10/18 21:00 Temperature Pulse Rate 90 87 90 Respiratory Rate 15 18 14 Blood Pressure 106/79 125/74 Pulse Oximetry 95 98 96 03/10/18 21:30 03/10/18 22:00 03/10/18 22:30 Temperature Pulse Rate 92 H 93 H 91 H Respiratory Rate 19 19 18 Blood Pressure 120/80 Pulse Oximetry 96 96 99 03/10/18 23:00 03/10/18 23:30 03/11/18 00:00 Temperature 98.7 F Pulse Rate 93 H 92 H 90 Respiratory Rate 13 23 14 Blood Pressure 170/89 H 162/91 H Pulse Oximetry 97 95 96 03/11/18 00:30 03/11/18 01:00 03/11/18 01:30 Temperature Pulse Rate 100 H 95 H 97 H Respiratory Rate 19 15 14 Blood Pressure 140/88 Pulse Oximetry 97 94 L 97 03/11/18 02:00 03/11/18 02:30 03/11/18 03:00 Temperature Pulse Rate 98 H 102 H 101 H Respiratory Rate 23 Blood Pressure 138/67 Pulse Oximetry 100 03/11/18 03:03 03/11/18 03:30 03/11/18 04:00 Temperature 98.2 F Pulse Rate 98 H 93 H 100 H Respiratory Rate 14 13 14 Blood Pressure 148/78 H 160/80 H Pulse Oximetry 99 89 L 100 03/11/18 04:30 03/11/18 05:00 03/11/18 05:30 Temperature Pulse Rate 94 H 94 H 94 H Respiratory Rate 3 L 14 14 Blood Pressure 145/72 H Pulse Oximetry 100 99 100 03/11/18 06:00 03/11/18 06:01 03/11/18 06:30 Temperature Pulse Rate 97 H 97 H 107 H Respiratory Rate 18 18 39 H Blood Pressure 142/67 H Pulse Oximetry 99 98 86 L Intake & Output 03/10/18 03/11/18 03/11/18 18:59 06:59 18:59 Intake Total 1500 / 1500 1480 / 1480 Output Total 2200 / 2200 Balance -700 / -700 1480 / 1480 Weight 67 kg Intake: IV 1000 / 1000 1000 / 1000 D5W/1/2NS + KCL 10 mEq Inj 1, 1000 / 1000 1000 / 1000 000 ML @ 75 mls/hr IV.CONT . [id number] [facility] Rx#:[id number] Oral 500 / 500 480 / 480 Output: Urine 2200 / 2200 Other: # Voids 3 Date of Last Bowel Movement 03/10/18 03/10/18 # Bowel Movements 1 0 Narrative: GENERAL: in NAD, SKIN: Warm and dry. HEAD: Atraumatic. Normocephalic. EYES: Pupils equal and round. No scleral icterus. ENT: No nasal bleeding or discharge. Mucous membranes pink and moist. NECK: Trachea midline. No JVD. CARDIOVASCULAR: Regular rate and rhythm. RESPIRATORY: No accessory muscle use. GASTROINTESTINAL: Abdomen soft, non-tender, nondistended. MUSCULOSKELETAL: Extremities without clubbing, cyanosis, or edema. No obvious deformities. NEUROLOGICAL: Alert sitting up in bed, pleasant oriented 3. - Urinary Catheter Management Indwelling Urethral Catheter Cath placed during this visit: yes Reason for continuing: Hourly intake/output Insertion date: 03/03/18 Insertion time: 17:55 Straight Cath placed during this visit: yes, but has since been removed by the nurse Reason for continuing: Not indwelling catheter Insertion date: 03/03/18 Removal date: 03/04/18 Removal time: 18:30 Condom Cath placed during this visit: no Results - Labs CBC & Chem 7: 03/04/18 12:46 03/11/18 05:15 Laboratory Results - last 24 hr 03/11/18 05:15 Sodium 140 Potassium 3.8 Chloride 102 Carbon Dioxide 27.2 Anion Gap 11 BUN 11 Creatinine 1.00 Estimated GFR 77 L Random Glucose 121 H Calcium 9.9 Phosphorus 2.7 Magnesium 2.0 Assessment and Plan - Plan 57yM with heat stroke, acute metabolic encephalopathy, severe dehydration and associated organ dysfunction including acute rhabdomyolysis and kidney injury. Clinically improving. stable for transfer to floor. Acute metabolic encephalopathy - improved Heat stroke -Heatstroke -Aggressive IV fluid hydration -External cooling as needed -CT head negative, EEG without epileptic activity. discontinued Seroquel, Neurology following, MRI with old stroke, no acute findings. Severe dehydration - Improved continue IV fluids. Acute rhabdomyolysis Improving. - Hydration given, improved CK to 600s. electrolyte derangement replaced and following. Acute kidney injury- improved. Seizure disorder -Continue Depakote -Keppra -Lorazepam as needed = 03/06. EEG without epileptic activity. = Neurology following. Appreciate assistance. Depression -Cymbalta -Quetiapine -Trazodone DVT GI prophylaxis -Teds SCDs -Lovenox -Regular diet Recommended to be transferred to [facility] to continue Physical Therapy and try to sent him to the community. Code Status: Full Code. Discussed Condition With: Patient, Nurse Miss Gerard, Physical Therapy and Wardrobe Coordinator. Discharge Planning: Once able to go to the community.
[2018-03-11] MEDS: Divalproex 500 MG ER Tablet PO SCH ×2 (08:19→20:43)
[2018-03-11] MEDS: Duloxetine 60 MG DR Capsule PO SCH (08:19)
[2018-03-11] MEDS: Senna/Docusate Sodium 8.6/50 MG Tablet PO SCH ×2 (08:20→20:44)
[2018-03-11] MEDS: Modafinil 200 MG Tablet PO SCH (08:20)
[2018-03-11] MEDS: Topiramate 25 MG Tablet PO SCH ×2 (08:20→20:44)
[2018-03-11] MEDS: amLODIPine 10 MG Tablet PO SCH (08:20)
[2018-03-11] MEDS: Haloperidol Inj 5 MG/ML Ampul IV.PUSH PRN ×2 (17:39→22:42)
[2018-03-11] MEDS: Enoxaparin Inj 40 MG/0.4 ML Syringe SQ SCH (20:43)
[2018-03-11] MEDS: traZODone 100 MG Tablet PO SCH (20:43)
[2018-03-11] MEDS ORDERED: LORazepam 1 MG Tablet PO ONE (23:49)
[2018-03-12] MEDS: KCL 10 mEq/D5W/NaCl 0.45% Inj 1,000 ML IV.CONT SCH (05:45)
[2018-03-12] MEDS: amLODIPine 10 MG Tablet PO SCH (09:24)
[2018-03-12] MEDS: Divalproex 500 MG ER Tablet PO SCH ×2 (09:24→20:57)
[2018-03-12] MEDS: Modafinil 200 MG Tablet PO SCH (09:24)
[2018-03-12] MEDS: Duloxetine 60 MG DR Capsule PO SCH (09:24)
[2018-03-12] MEDS: Topiramate 25 MG Tablet PO SCH ×2 (09:24→20:57)
[2018-03-12] MEDS: Haloperidol Inj 5 MG/ML Ampul IV.PUSH PRN ×2 (13:02→19:22)
--- NOTE | 2018-03-12 14:21 | P.PN ---
Subjective Interval history: Health Assistant Notes: 57-year-old male, with past medical history significant for seizure disorder, presents for an evaluation of altered mental status. He was found down outside by family. Is unknown how long he was outside. EMS states that on their arrival they found him hot and without sweats production. He was tachycardic and hypotensive at which time they applied ice packs to his groin and axilla started IV fluids. They gave him 0.4 mg of Narcan to which he did not respond. They state that he has started to come around mentally more while in route. He was resuscitated in the emergency department with aggressive IV fluid resuscitation and is admitted to ICU for further management. 03/04: more awake today. organ function improving. hypernatremia persists. temperature back to baseline. brief ROS negative. full ROS unobtainable due to somnolence. Hospitalist Notes: 03/09: alert and oriented, in his bedroom, but as per nurse has some disorientation occasional and try to jump over his rails. 03/10: Stable, improving condition, following manager of construction and PT for discharge expected by tomorrow. 03/11: Seen in his bedroom and discussed with nurse Rajani, also with Discharge Rn and Physical therapy, he has the recommendations for SNF placement, but has no privileges for SNF placement, will continue in house until able to be sent to the community. 03/12: Stable in his bedroom, no nausea, vomit or diarrhea, okay to discharge to SNF but not yet found placement as per manager of construction. Physical Exam Vital signs: Vital Signs 03/11/18 14:30 03/11/18 15:00 03/11/18 15:30 Temperature Pulse Rate 92 H 91 H 156 H Respiratory Rate 17 13 Blood Pressure 180/86 H Pulse Oximetry 95 03/11/18 16:00 03/11/18 16:09 03/11/18 16:30 Temperature 98.6 F Pulse Rate 91 H 91 H Respiratory Rate 18 Blood Pressure 205/97 H 156/89 H Pulse Oximetry 98 72 L 100 03/11/18 20:00 03/12/18 00:00 03/12/18 04:00 Temperature 99.1 F 99.0 F 99.4 F Pulse Rate 100 H 108 H 102 H Respiratory Rate 17 22 16 Blood Pressure 186/94 H 178/91 H 173/89 H Pulse Oximetry 98 100 99 03/12/18 08:00 03/12/18 08:17 Temperature Pulse Rate Respiratory Rate 20 Blood Pressure Pulse Oximetry 99 Intake & Output 03/11/18 03/12/18 03/12/18 18:59 06:59 18:59 Intake Total 500 / 500 100 / 100 Output Total 500 / 500 1400 / 1400 Balance 0 / 0 -1300 / -1300 Weight 66.5 kg Intake: Oral 500 / 500 100 / 100 Output: Urine 500 / 500 1400 / 1400 Other: # Voids 3 Date of Last Bowel Movement 03/11/18 03/11/18 03/11/18 # Bowel Movements 1 0 Narrative: GENERAL: in NAD, SKIN: Warm and dry. HEAD: Atraumatic. Normocephalic. EYES: Pupils equal and round. No scleral icterus. ENT: No nasal bleeding or discharge. Mucous membranes pink and moist. NECK: Trachea midline. No JVD. CARDIOVASCULAR: Regular rate and rhythm. RESPIRATORY: No accessory muscle use. GASTROINTESTINAL: Abdomen soft, non-tender, nondistended. MUSCULOSKELETAL: Extremities without clubbing, cyanosis, or edema. No obvious deformities. NEUROLOGICAL: Alert sitting up in bed, pleasant oriented 3. - Urinary Catheter Management Indwelling Urethral Catheter Cath placed during this visit: yes Reason for continuing: Hourly intake/output Insertion date: 03/03/18 Insertion time: 17:55 Straight Cath placed during this visit: yes, but has since been removed by the nurse Reason for continuing: Not indwelling catheter Insertion date: 03/03/18 Removal date: 03/04/18 Removal time: 18:30 Condom Cath placed during this visit: no Results - Labs CBC & Chem 7: 03/04/18 12:46 03/11/18 05:15 Laboratory Results - last 24 hr 03/08/18 17:04 Levetiracetam 2.3 L Assessment and Plan - Plan 57yM with heat stroke, acute metabolic encephalopathy, severe dehydration and associated organ dysfunction including acute rhabdomyolysis and kidney injury. Clinically improving. stable for transfer to floor. Acute metabolic encephalopathy - improved Heat stroke -Heatstroke -Aggressive IV fluid hydration -External cooling as needed -CT head negative, EEG without epileptic activity. discontinued Seroquel, Neurology following, MRI with old stroke, no acute findings. Severe dehydration - Improved Acute rhabdomyolysis Improving. - Hydration given, improved CK to 600s. electrolyte derangement replaced Acute kidney injury- improved. Seizure disorder -Continue Depakote -Keppra -Lorazepam as needed = 03/06. EEG without epileptic activity. = Neurology following. Appreciate assistance. Depression -Cymbalta -Quetiapine -Trazodone DVT GI prophylaxis -Teds SCDs -Lovenox -Regular diet Code Status: Full code. Discussed Condition With: patient and Discharge Rn. Discharge Planning: Discharge home with [facility]
--- NOTE | 2018-03-12 15:24 | P.DCO ---
- Diagnosis (1) Altered mental status - Physical Therapy Order: Evaluate and treat, Improve ambulation, Strength and gait training - Occupational Therapy Order: Evaluate and treat, Improve ADL, Gross motor coordination - Home Health Nursing Order: Medical education, Signs/symptoms of disease process, Medication education-adverse effect, Nursing assessment with vital signs - Case Management Consult No - Certification I have seen patient Waqar Nair on 03/12/18. My clinical findings support the need for the requested home health care services because: Deconditioned with increased weakness I certify that my clinical findings support that this patient is homebound because: Unsafe to leave home unassisted (1) Altered mental status Qualifiers: Altered mental status type: unspecified Qualified Code(s): R41.82 - Altered mental status, unspecified
[2018-03-12] MEDS: Lisinopril 10 MG Tablet PO SCH (16:10)
[2018-03-12] MEDS: Atenolol 25 MG Tablet PO SCH (16:11)
[2018-03-12] MEDS: Senna/Docusate Sodium 8.6/50 MG Tablet PO SCH ×2 (19:21→20:57)
[2018-03-12] MEDS: Enoxaparin Inj 40 MG/0.4 ML Syringe SQ SCH (20:57)
[2018-03-12] MEDS: traZODone 100 MG Tablet PO SCH (20:57)
[2018-03-13] MEDS: Divalproex 500 MG ER Tablet PO SCH ×2 (09:17→21:34)
[2018-03-13] MEDS: Lisinopril 10 MG Tablet PO SCH (09:17)
[2018-03-13] MEDS: Duloxetine 60 MG DR Capsule PO SCH (09:17)
[2018-03-13] MEDS: amLODIPine 10 MG Tablet PO SCH (09:17)
[2018-03-13] MEDS: Topiramate 25 MG Tablet PO SCH ×2 (09:17→21:34)
[2018-03-13] MEDS: Modafinil 200 MG Tablet PO SCH (09:17)
[2018-03-13] MEDS: Atenolol 25 MG Tablet PO SCH (09:18)
[2018-03-13] MEDS: Senna/Docusate Sodium 8.6/50 MG Tablet PO SCH ×2 (09:19→21:33)
--- NOTE | 2018-03-13 16:36 | P.CONPSY ---
Provisional Diagnosis Admission Date: March 03, 2018 20:09 Sayner I.: Delirium, history of depression History of Present Illness Service: CC Primary Care Provider: [facility] Primary Care Physician Family Provider: [facility] Chief Complaint: Confusion History of Present Illness: The patient is a 57 years old man, with a psychiatric history of depression, he is a , admitted due to with heat stroke, acute metabolic encephalopathy, severe dehydration and associated organ dysfunction including acute rhabdomyolysis and kidney injury. Consulted to psychiatry as a request of [place] services. However, on my psychiatric evaluation today the patient is very confused, disorganized, unable to provide any meaningful information for the psychiatric assessment at the moment, patient is visibly delirious most probably related with multiple underlying medical conditions. Medically For: Acute metabolic encephalopathy - improving. Heat stroke -Heatstroke -Aggressive IV fluid hydration -External cooling as needed -CT head negative = Recent admission noted possibly secondary to spice. = 03/06. Mental status improving. EEG without epileptic activity. Did recent admission secondary to spice. Continue to monitor. =03/06. Still somnolent. I suspect that patient is not actually compliant with all of his medications at home, and now is getting very high doses of Seroquel. We'll discontinue Seroquel. Consult neurology. EEG without epileptic activity. = 03/08. Appreciate neurology assistance. MRI with old stroke, no acute findings. Started on Provigil for hypersomnolence. Continue to hold Seroquel. Transfer to fifth floor [facility] for neuro monitoring. Severe dehydration - continue iv fluid resuscitation Acute rhabdomyolysis - serial ck - ivf hydration = 03/05 rhabdomyolysis with CK 6000 improving. = 03/06. CK 3400. Improving. Continue IV fluids. =03/07. Improving. Continue IV fluids. Continue to monitor. = 03/08. CK improving in the 600s. //Hypophosphatemia. Phosphorus 1.5. Place. Monitor tomorrow. = Phosphorus 2.6. Improved after placement. Hypernatremia - persistent - free water deficit. - change fluids to 1/2 NS @ 150cc/hr. = Sodium decreasing slowly. Continue half normal saline. //hypertension. Systolic blood pressures up to 180s today. When necessary clonidine ordered. Hyperkalemia -Resolved. Acute kidney injury- improving. -Severe dehydration -Aggressive IV fluid resuscitation -Monitor I's and O's -Monitor electrolytes and creatinine - d/c hargrove. = 03/06. Creatinine 0.7. Resolved. Seizure disorder -Continue Depakote -Keppra -Lorazepam as needed = 03/06. EEG without epileptic activity. = Nephrology following. Appreciate assistance. Depression -Cymbalta -Quetiapine -Trazodone DVT GI prophylaxis -Teds SCDs -Lovenox -Regular diet PMFSH - History History Provided By: Promotions Representative / EMT - Medical History Medical History: Medical History (Last Reviewed 03/12/18 @ 13:34 by Ann Wilkinson) Psychiatric diagnosis (Acute) Hypertension (Acute) Seizure disorder (Acute) Chronic pain - Surgical History Surgical History: Surgical History (Last Reviewed 03/12/18 @ 13:34 by Ann Wilkinson) Status post carotid surgery (Acute) Hx of CABG (Acute) - Tobacco History Tobacco Use In Past 30 Days: (UNKNOWN) Smoking Status: Cognitive impairment Tobacco Type: Cigarettes - Alcohol History How Often Do You Have a Drink Containing Alcohol: Unable to Obtain - Substance Use History Substance History: Unable to Obtain - Travel History Recent Travel in the [place] Within the Last 8 Weeks: No Recent Travel Out of the Country Within the Last 8 Weeks: No - Immunization History Tetanus Immunization: Unsure Hx Influenza Vaccine This Season: Unable to Assess Medications and Allergies Active Medications: Active Medications Acetaminophen (Tylenol) 650 mg PO Q6H PRN PRN Reason: PAIN 1-10 AND/OR FEVER >101F Albuterol (Duoneb Neb (Prn)) 1 ampul NEB Q2HR NEB PRN PRN Reason: WHEEZING Amlodipine Besylate (Norvasc) 10 mg PO DAILY [facility] Last Admin: 03/13/18 09:17 Dose: 10 mg Atenolol (Tenormin) 12.5 mg PO DAILY [facility] Last Admin: 03/13/18 09:18 Dose: 12.5 mg Bisacodyl (Dulcolax Supp) 10 mg RECTAL DAILY PRN PRN Reason: SEVERE CONSITIPATION Clonidine HCl (Catapres) 0.1 mg PO Q6H PRN PRN Reason: SBP>160, DBP>90 Last Admin: 03/08/18 13:06 Dose: 0.1 mg Divalproex Sodium (Depakote Er) 500 mg PO BID [facility] Last Admin: 03/13/18 09:17 Dose: 500 mg Duloxetine HCl (Cymbalta) 60 mg PO DAILY [facility] Last Admin: 03/13/18 09:17 Dose: 60 mg Enalaprilat (Vasotec Inj) 1.25 mg IV.PUSH Q6H PRN PRN Reason: SBP>160, DBP>90 Last Admin: 03/08/18 12:20 Dose: 1.25 mg Enoxaparin Sodium (Lovenox Inj) 40 mg SQ Q24H [facility] Last Admin: 03/12/18 20:57 Dose: 40 mg Flumazenil (Romazecon Inj) 0.2 mg IV.PUSH Q1M PRN PRN Reason: OVERSEDATION Haloperidol Lactate (Haldol Inj) 1 mg IV.PUSH Q15M PRN PRN Reason: for severe agitation Last Admin: 03/12/18 19:22 Dose: 1 mg Magnesium Sulfate 4 gm/ Sodium (Chloride) 100 mls @ 50 mls/hr IV.SIG UNSCH PRN PRN Reason: For Magnesium 0.9 - 1.1 mg/dL Magnesium Sulfate 2 gm/ Sodium (Chloride) 100 mls @ 50 mls/hr IV.SIG UNSCH PRN PRN Reason: For Magnesium 1.2 - 1.6 mg/dL Lactulose (Lactulose Liq) 30 ml PO Q6H [facility] Last Admin: 03/13/18 09:18 Dose: 30 ml Lisinopril (Prinivil) 10 mg PO DAILY [facility] Last Admin: 03/13/18 09:17 Dose: 10 mg Magnesium Oxide (Mag-Ox) 800 mg PO UNSCH PRN PRN Reason: For Magnesium 1.2 - 1.6 mg/dL Miscellaneous (Pill Splitter) 1 each OTHER [facility] Modafinil (Provigil) 200 mg PO DAILY [facility] Last Admin: 03/13/18 09:17 Dose: 200 mg Ondansetron HCl (Zofran Inj) 4 mg IV.PUSH Q6H PRN PRN Reason: NAUSEA OR VOMITING Last Admin: 03/11/18 17:34 Dose: 4 mg Senna/Docusate Sodium (Brooke-Colace) 1 tab PO BID [facility] Last Admin: 03/13/18 09:19 Dose: Not Given Sennosides (Senokot) 17.2 mg PO Q12H PRN PRN Reason: Moderate Constipation Sodium Chloride (Ns Flush) 2 ml IV.FLUSH PRN PRN PRN Reason: FLUSH AFTER USING IV ACCESS Last Admin: 03/11/18 08:20 Dose: 2 ml Sodium Chloride (Ns Flush) 2 ml IV.FLUSH BID [facility] Last Admin: 03/13/18 09:19 Dose: 2 ml Topiramate (Topamax) 50 mg PO BID [facility] Last Admin: 03/13/18 09:17 Dose: 50 mg Trazodone HCl (Desyrel) 300 mg PO [facility] Last Admin: 03/12/18 20:57 Dose: 300 mg Allergies Allergy/AdvReac Type Severity Reaction Status Date / Time acetaminophen AdvReac Intermediate pt has Verified 02/19/18 03:02 hepatitis c told not to take Home Medications Medication Instructions Recorded Confirmed Type divalproex 500 mg PO 02/08/18 03/03/18 History levetiracetam 250 mg PO Q12H 02/08/18 03/03/18 History lisinopril 10 mg PO DAILY 02/08/18 03/03/18 History quetiapine 800 mg PO HS 02/08/18 03/03/18 History trazodone 300 mg PO HS 02/08/18 03/03/18 History atenolol 12.5 mg PO DAILY 03/03/18 03/03/18 History baclofen 10 mg PO QID 03/03/18 03/03/18 History duloxetine 60 mg PO DAILY 03/03/18 03/03/18 History Exam Vital signs: Vital Signs 03/12/18 20:00 03/12/18 20:15 03/13/18 00:00 Temperature 98.9 F 98.5 F Pulse Rate 87 81 Respiratory Rate 30 H 13 Blood Pressure 131/69 122/72 Pulse Oximetry 94 L 97 96 03/13/18 04:00 03/13/18 08:00 03/13/18 08:28 Temperature 98.8 F 97.8 F Pulse Rate 78 78 Respiratory Rate 12 12 Blood Pressure 146/76 H 135/73 Pulse Oximetry 94 L 95 96 Intake & Output 03/12/18 03/13/18 03/13/18 18:59 06:59 18:59 Intake Total 450 / 450 300 / 300 Output Total 1500 / 1500 1000 / 1000 Balance -1050 / -1050 -700 / -700 Weight 63 kg Intake: Oral 450 / 450 300 / 300 Output: Urine 1500 / 1500 1000 / 1000 Other: # Voids 3 Date of Last Bowel Movement 03/11/18 03/11/18 # Bowel Movements 0 Mental Status Examination Appearance: Appropriate Consciousness: Lethargic, Clouded Orientation: Person Speech: Incoherent Language: Word salad Fund of Knowledge: Inadequate Memory: Unremarkable Mood: Oppositional Affect: Flat Thought Process & Associations: Loose associations Thought Content: Thought blocking Suicidal Ideation: No Suicidal Plan: No Suicidal Intention: No Homicidal Ideation: No Homicidal Plan: No Homicidal Intention: No Insight: Poor Judgment: Poor Assessment and Plan - Assessment (1) Delirium Code(s): R41.0 - Disorientation, unspecified Status: Acute - Plan Plan: Estimated LOS: [] days The patient is a 57 year-old man, with a psychiatric history of depression, he is a , admitted due to with heat stroke, acute metabolic encephalopathy, severe dehydration and associated organ dysfunction including acute rhabdomyolysis and kidney injury. Consulted to psychiatry as a request of [place] services. However, on my psychiatric evaluation today the patient is very confused, disorganized, unable to provide any meaningful information for the psychiatric assessment at the moment, patient is visibly delirious most probably related with multiple underlying medical conditions. Continue medical treatment as needed. I will follow-up and will [facility]. continue current psychotropic regimen as per outpatient psychiatrist. I will follow-up. Justification for Continued Inpatient Stay: No admission indicated at the moment
--- NOTE | 2018-03-13 17:10 | P.PN ---
Subjective Interval history: Wood Repatcher Notes: 57-year-old male, with past medical history significant for seizure disorder, presents for an evaluation of altered mental status. He was found down outside by family. Is unknown how long he was outside. EMS states that on their arrival they found him hot and without sweats production. He was tachycardic and hypotensive at which time they applied ice packs to his groin and axilla started IV fluids. They gave him 0.4 mg of Narcan to which he did not respond. They state that he has started to come around mentally more while in route. He was resuscitated in the emergency department with aggressive IV fluid resuscitation and is admitted to ICU for further management. 03/04: more awake today. organ function improving. hypernatremia persists. temperature back to baseline. brief ROS negative. full ROS unobtainable due to somnolence. Hospitalist Notes: 03/09: alert and oriented, in his bedroom, but as per nurse has some disorientation occasional and try to jump over his rails. 03/10: Stable, improving condition, following occupational therapist rehab manager and PT for discharge expected by tomorrow. 03/11: Seen in his bedroom and discussed with nurse Miss Gerard, also with Supervisor Grinding and Physical therapy, he has the recommendations for SNF placement, but has no privileges for SNF placement, will continue in house until able to be sent to the community. 03/12: Stable in his bedroom, no nausea, vomit or diarrhea, okay to discharge to SNF but not yet found placement as per occupational therapist rehab manager. 03/13: Seen in his bedroom with nurse Miss Garcia he is confused, not able to give information, but no Nausea, vomit or diarrhea. Physical Exam Vital signs: Vital Signs 03/12/18 20:00 03/12/18 20:15 03/13/18 00:00 Temperature 98.9 F 98.5 F Pulse Rate 87 81 Respiratory Rate 30 H 13 Blood Pressure 131/69 122/72 Pulse Oximetry 94 L 97 96 03/13/18 04:00 03/13/18 08:00 03/13/18 08:28 Temperature 98.8 F 97.8 F Pulse Rate 78 78 Respiratory Rate 12 12 Blood Pressure 146/76 H 135/73 Pulse Oximetry 94 L 95 96 03/13/18 12:00 03/13/18 16:00 Temperature 98 F 98.6 F Pulse Rate 69 71 Respiratory Rate 19 16 Blood Pressure 114/62 106/57 L Pulse Oximetry 98 97 Intake & Output 03/12/18 03/13/18 03/13/18 18:59 06:59 18:59 Intake Total 450 / 450 300 / 300 Output Total 1500 / 1500 1000 / 1000 Balance -1050 / -1050 -700 / -700 Weight 63 kg Intake: Oral 450 / 450 300 / 300 Output: Urine 1500 / 1500 1000 / 1000 Other: # Voids 3 Date of Last Bowel Movement 03/11/18 03/11/18 # Bowel Movements 0 Narrative: GENERAL: in NAD, SKIN: Warm and dry. HEAD: Atraumatic. Normocephalic. EYES: Pupils equal and round. No scleral icterus. ENT: No nasal bleeding or discharge. Mucous membranes pink and moist. NECK: Trachea midline. No JVD. CARDIOVASCULAR: Regular rate and rhythm. RESPIRATORY: No accessory muscle use. GASTROINTESTINAL: Abdomen soft, non-tender, nondistended. MUSCULOSKELETAL: Extremities without clubbing, cyanosis, or edema. No obvious deformities. NEUROLOGICAL: Alert but confused. - Urinary Catheter Management Indwelling Urethral Catheter Cath placed during this visit: yes Reason for continuing: Hourly intake/output Insertion date: 03/03/18 Insertion time: 17:55 Straight Cath placed during this visit: yes, but has since been removed by the nurse Reason for continuing: Not indwelling catheter Insertion date: 03/03/18 Removal date: 03/04/18 Removal time: 18:30 Condom Cath placed during this visit: no Results - Labs CBC & Chem 7: 03/14/18 09:00 03/14/18 06:26 Assessment and Plan - Assessment (1) Altered mental status Code(s): R41.82 - Altered mental status, unspecified Status: Acute (2) Chronic ischemic right MCA stroke Code(s): I69.30 - Unspecified sequelae of cerebral infarction Status: Acute (3) Hx of CABG Code(s): Z95.1 - Presence of aortocoronary bypass graft Status: Acute (4) Seizure disorder Code(s): G40.909 - Epilepsy, unspecified, not intractable, without status epilepticus Status: Acute - Plan 57yM with heat stroke, acute metabolic encephalopathy, severe dehydration and associated organ dysfunction including acute rhabdomyolysis and kidney injury. Clinically improving. stable for transfer to floor. Acute metabolic encephalopathy - improved Heat stroke -Heatstroke -Aggressive IV fluid hydration -External cooling as needed -CT head negative, EEG without epileptic activity. discontinued Seroquel, Neurology following, MRI with old stroke, no acute findings. will try to move him today out of ICU and see if this helps the patient. Severe dehydration - Improved Acute rhabdomyolysis Improving. - Hydration given, improved CK to 600s. electrolyte derangement replaced Acute kidney injury- improved. Seizure disorder -Continue Depakote -Keppra -Lorazepam as needed = 03/06. EEG without epileptic activity. = Neurology following. Appreciate assistance. Depression -Cymbalta -Quetiapine -Trazodone DVT GI prophylaxis -Teds SCDs -Lovenox -Regular diet Code Status: Full code. Discussed Condition With: Patient and nurse. Discharge Planning: Transfer to medical floor. (1) Altered mental status Qualifiers: Altered mental status type: unspecified Qualified Code(s): R41.82 - Altered mental status, unspecified
[2018-03-13] MEDS: Enoxaparin Inj 40 MG/0.4 ML Syringe SQ SCH (21:33)
[2018-03-13] MEDS: traZODone 100 MG Tablet PO SCH (21:33)
--- NOTE | 2018-03-14 08:26 | P.PNIM ---
Subjective Interval history: f/u; acute encephalopathy in no acute distress. awake and alert but confused and now on restraints. seems pain free. Physical Exam Vital signs: Vital Signs 03/13/18 08:28 03/13/18 12:00 03/13/18 16:00 Temperature 98 F 98.6 F Pulse Rate 69 71 Respiratory Rate 19 16 Blood Pressure 114/62 106/57 L Pulse Oximetry 96 98 97 03/13/18 20:00 03/14/18 00:00 03/14/18 04:00 Temperature 97.1 F L 98.4 F 98.0 F Pulse Rate 82 76 82 Respiratory Rate 18 18 18 Blood Pressure 112/74 124/67 120/59 L Pulse Oximetry 98 93 L Intake & Output 03/13/18 03/14/18 03/14/18 18:59 06:59 18:59 Intake Total 350 / 350 Output Total 900 / 900 Balance -550 / -550 Weight 64 kg Intake: Oral 350 / 350 Output: Urine 900 / 900 Other: # Voids 800 - Constitutional no acute distress - Routine Respiratory Exam Present: CTA bilaterally - Routine Cardiovascular Exam Present: RRR - Routine Abdominal Exam Present: soft - Routine Extremities Exam Comments: no pedal edema. - Routine Neurological Exam Present: alert not oriented to place or time. - Urinary Catheter Management Indwelling Urethral Catheter Cath placed during this visit: yes Reason for continuing: Hourly intake/output Insertion date: 03/03/18 Insertion time: 17:55 Straight Cath placed during this visit: yes, but has since been removed by the nurse Reason for continuing: Not indwelling catheter Insertion date: 03/03/18 Removal date: 03/04/18 Removal time: 18:30 Condom Cath placed during this visit: no Results - Labs CBC & Chem 7: 03/04/18 12:46 03/11/18 05:15 Assessment and Plan - Assessment (1) Altered mental status Code(s): R41.82 - Altered mental status, unspecified Status: Acute (2) Chronic ischemic right MCA stroke Code(s): I69.30 - Unspecified sequelae of cerebral infarction Status: Acute (3) Hx of CABG Code(s): Z95.1 - Presence of aortocoronary bypass graft Status: Acute (4) Seizure disorder Code(s): G40.909 - Epilepsy, unspecified, not intractable, without status epilepticus Status: Acute - Plan Acute metabolic encephalopathy - Heat stroke -Aggressive IV fluid hydration -CT head negative, EEG without epileptic activity. discontinued Seroquel, Neurology following, MRI with old stroke, no acute findings. Severe dehydration - Improved Acute rhabdomyolysis Improving. - Hydration given, improved CK to 600s. electrolyte derangement replaced Acute kidney injury- improved. Seizure disorder -Continue Depakote -Keppra -Lorazepam as needed -EEG without epileptic activity. -Neurology following. Appreciate assistance. Depression -Cymbalta -Quetiapine -Trazodone -psych evaluation appreciated. Hypertension - BP controlled; continue current regimen. DVT GI prophylaxis -Teds SCDs -Lovenox -Regular diet Discharge Planning: on restraints and still confused. not a safe discharge at this time. (1) Altered mental status Qualifiers: Altered mental status type: unspecified Qualified Code(s): R41.82 - Altered mental status, unspecified
[2018-03-14 09:09] LABS: Calcium 9.3 mg/dL (8.5-10.1); Carbon Dioxide 21.8 meq/L (21.0-32.0); Magnesium 2.1 mg/dL (1.5-2.5); Potassium 4.1 meq/L (3.5-5.1)
[2018-03-14] MEDS: amLODIPine 10 MG Tablet PO SCH (09:09)
[2018-03-14] MEDS: Senna/Docusate Sodium 8.6/50 MG Tablet PO SCH ×2 (09:09→20:27)
[2018-03-14] MEDS: Duloxetine 60 MG DR Capsule PO SCH (09:09)
[2018-03-14] MEDS: Atenolol 25 MG Tablet PO SCH (09:09)
[2018-03-14] MEDS: Lisinopril 10 MG Tablet PO SCH (09:10)
[2018-03-14 09:14] LABS: Alanine Aminotransferase 28 U/L (12-78)
[2018-03-14] MEDS: Topiramate 25 MG Tablet PO SCH ×2 (09:18→20:27)
[2018-03-14 09:43] LABS: Aspartate Aminotransferase 22 U/L (15-37)
[2018-03-14 10:14] LABS: Hematocrit 38.8 % (39.0-51.0); Hemoglobin 13.2 gm/dL (13.0-17.0); Mean Corpuscular Hemoglobin 29.9 pg (27.0-34.0); Mean Corpuscular Volume 87.9 fL (80.0-100.0); Mean Platelet Volume 7.6 fL (7.0-11.0); Platelet Count 297 th/mm3 (150-450); Red Blood Count 4.42 mil/mm3 (4.50-5.90); Red Cell Distribution Width 14.9 % (11.6-17.2)
[2018-03-14] MEDS: Divalproex 500 MG ER Tablet PO SCH ×2 (11:27→20:27)
[2018-03-14] MEDS: Modafinil 200 MG Tablet PO SCH (11:28)
[2018-03-14] MEDS: Enoxaparin Inj 40 MG/0.4 ML Syringe SQ SCH (20:27)
[2018-03-14] MEDS: traZODone 100 MG Tablet PO SCH (20:27)
[2018-03-15] MEDS: Haloperidol Inj 5 MG/ML Ampul IV.PUSH PRN (01:35)
[2018-03-15] MEDS: Divalproex 500 MG ER Tablet PO SCH ×2 (09:09→20:36)
[2018-03-15] MEDS: Lisinopril 10 MG Tablet PO SCH (09:09)
[2018-03-15] MEDS: Topiramate 25 MG Tablet PO SCH ×2 (09:09→20:37)
[2018-03-15] MEDS: Duloxetine 60 MG DR Capsule PO SCH (09:09)
[2018-03-15] MEDS: Senna/Docusate Sodium 8.6/50 MG Tablet PO SCH ×2 (09:09→20:37)
[2018-03-15] MEDS: Modafinil 200 MG Tablet PO SCH (09:10)
[2018-03-15] MEDS: amLODIPine 10 MG Tablet PO SCH (09:10)
[2018-03-15] MEDS: Atenolol 25 MG Tablet PO SCH (09:10)
--- NOTE | 2018-03-15 10:53 | P.PNIM ---
Subjective Interval history: in no acute distress. no new complaints. d/w the RN and no acute issues over night. Physical Exam Vital signs: Vital Signs 03/14/18 12:00 03/14/18 12:54 03/14/18 16:00 Temperature 98.1 F Pulse Rate 75 72 Respiratory Rate 18 20 Blood Pressure 113/66 99/63 L Pulse Oximetry 98 98 97 03/14/18 20:00 03/15/18 00:00 03/15/18 04:00 Temperature 98.4 F 99.2 F 99.2 F Pulse Rate 88 87 82 Respiratory Rate 18 18 18 Blood Pressure 102/65 123/76 119/86 Pulse Oximetry 97 97 97 03/15/18 08:00 Temperature 98.6 F Pulse Rate 84 Respiratory Rate 20 Blood Pressure 141/81 H Pulse Oximetry 96 Intake & Output 03/14/18 03/15/18 03/15/18 18:59 06:59 18:59 Intake Total 598 / 598 Output Total 975 / 975 Balance 598 / 598 -975 / -975 Weight 63.5 kg Intake: Oral 598 / 598 Output: Urine 975 / 975 Other: # Voids 3 Date of Last Bowel Movement 03/14/18 03/15/18 # Bowel Movements 1 - Constitutional no acute distress - Routine Respiratory Exam Present: CTA bilaterally - Routine Cardiovascular Exam Present: RRR - Routine Abdominal Exam Present: soft - Routine Extremities Exam Comments: no pedal edema. - Routine Neurological Exam Present: alert, oriented X3 - Urinary Catheter Management Indwelling Urethral Catheter Cath placed during this visit: yes Reason for continuing: Hourly intake/output Insertion date: 03/03/18 Insertion time: 17:55 Straight Cath placed during this visit: yes, but has since been removed by the nurse Reason for continuing: Not indwelling catheter Insertion date: 03/03/18 Removal date: 03/04/18 Removal time: 18:30 Condom Cath placed during this visit: no Results - Labs CBC & Chem 7: 03/14/18 09:00 03/14/18 06:26 Assessment and Plan - Assessment (1) Altered mental status Code(s): R41.82 - Altered mental status, unspecified Status: Acute (2) Chronic ischemic right MCA stroke Code(s): I69.30 - Unspecified sequelae of cerebral infarction Status: Acute (3) Hx of CABG Code(s): Z95.1 - Presence of aortocoronary bypass graft Status: Acute (4) Seizure disorder Code(s): G40.909 - Epilepsy, unspecified, not intractable, without status epilepticus Status: Acute - Plan Acute metabolic encephalopathy - Heat stroke -received aggressive IV fluid hydration -CT head negative, EEG without epileptic activity. discontinued Seroquel, Neurology following, MRI with old stroke, no acute findings. Severe dehydration - Improved Acute rhabdomyolysis Improving. - Hydration given, improved CK to 600s. electrolyte derangement replaced Acute kidney injury- improved. Seizure disorder -Continue Depakote -Keppra -Lorazepam as needed -EEG without epileptic activity. -Neurology following. Appreciate assistance. Depression -Cymbalta -Quetiapine -Trazodone -psych evaluation appreciated. Hypertension - BP controlled; continue current regimen. DVT GI prophylaxis -Teds SCDs -Lovenox -Regular diet Discharge Planning: not a safe discharge at this time. (1) Altered mental status Qualifiers: Altered mental status type: unspecified Qualified Code(s): R41.82 - Altered mental status, unspecified
[2018-03-15] MEDS: Enoxaparin Inj 40 MG/0.4 ML Syringe SQ SCH (20:36)
[2018-03-15] MEDS: traZODone 100 MG Tablet PO SCH (20:37)
[2018-03-16] MEDS: amLODIPine 10 MG Tablet PO SCH (08:17)
[2018-03-16] MEDS: Topiramate 25 MG Tablet PO SCH ×2 (08:17→20:36)
[2018-03-16] MEDS: Modafinil 200 MG Tablet PO SCH (08:17)
[2018-03-16] MEDS: Divalproex 500 MG ER Tablet PO SCH ×2 (08:17→20:36)
[2018-03-16] MEDS: Senna/Docusate Sodium 8.6/50 MG Tablet PO SCH ×2 (08:18→20:36)
[2018-03-16] MEDS: Lisinopril 10 MG Tablet PO SCH (08:18)
[2018-03-16] MEDS: Atenolol 25 MG Tablet PO SCH (08:18)
[2018-03-16] MEDS: Duloxetine 60 MG DR Capsule PO SCH (08:18)
--- NOTE | 2018-03-16 11:42 | P.PNIM ---
Subjective Interval history: in no acute distress. still confused and on restraints. d/w the RN and no acute issues over night. Physical Exam Vital signs: Vital Signs 03/15/18 12:00 03/15/18 16:00 03/15/18 20:00 Temperature 98.2 F 98.5 F 98.0 F Pulse Rate 79 78 81 Respiratory Rate 20 20 18 Blood Pressure 114/69 112/75 111/73 Pulse Oximetry 96 98 97 03/15/18 23:54 03/16/18 00:00 03/16/18 04:00 Temperature 98.7 F 97.8 F Pulse Rate 82 86 80 Respiratory Rate 18 21 Blood Pressure 105/67 120/71 Pulse Oximetry 96 98 03/16/18 08:00 Temperature 98.9 F Pulse Rate 80 Respiratory Rate 18 Blood Pressure 116/71 Pulse Oximetry 99 Intake & Output 03/15/18 03/16/18 03/16/18 18:59 06:59 18:59 Intake Total 480 / 480 480 / 480 Output Total 1300 / 1300 Balance 480 / 480 -820 / -820 Weight 63.7 kg Intake: Oral 480 / 480 480 / 480 Output: Urine 1300 / 1300 Other: # Voids 2 Date of Last Bowel Movement 03/15/18 # Bowel Movements 1 - Constitutional no acute distress - Routine Respiratory Exam Present: CTA bilaterally - Routine Cardiovascular Exam Present: RRR - Routine Abdominal Exam Present: soft - Routine Extremities Exam Comments: no pedal edema. - Routine Neurological Exam Present: alert - Urinary Catheter Management Indwelling Urethral Catheter Cath placed during this visit: yes Reason for continuing: Hourly intake/output Insertion date: 03/03/18 Insertion time: 17:55 Straight Cath placed during this visit: yes, but has since been removed by the nurse Reason for continuing: Not indwelling catheter Insertion date: 03/03/18 Removal date: 03/04/18 Removal time: 18:30 Condom Cath placed during this visit: no Results - Labs CBC & Chem 7: 03/14/18 09:00 03/14/18 06:26 Assessment and Plan - Assessment (1) Altered mental status Code(s): R41.82 - Altered mental status, unspecified Status: Acute (2) Chronic ischemic right MCA stroke Code(s): I69.30 - Unspecified sequelae of cerebral infarction Status: Acute (3) Hx of CABG Code(s): Z95.1 - Presence of aortocoronary bypass graft Status: Acute (4) Seizure disorder Code(s): G40.909 - Epilepsy, unspecified, not intractable, without status epilepticus Status: Acute - Plan Acute metabolic encephalopathy - Heat stroke -received aggressive IV fluid hydration -CT head negative, EEG without epileptic activity. discontinued Seroquel, Neurology following, MRI with old stroke, no acute findings. Severe dehydration - Improved Acute rhabdomyolysis Improving. - Hydration given, improved CK to 600s. electrolyte derangement replaced Acute kidney injury- improved. Seizure disorder -Continue Depakote -Keppra -Lorazepam as needed -EEG without epileptic activity. -Neurology following. Appreciate assistance. Depression -Cymbalta -Quetiapine -Trazodone -psych evaluation appreciated. Hypertension - BP controlled; continue current regimen. DVT GI prophylaxis -Teds SCDs -Lovenox -Regular diet Discharge Planning: not a safe discharge at this time. (1) Altered mental status Qualifiers: Altered mental status type: unspecified Qualified Code(s): R41.82 - Altered mental status, unspecified
[2018-03-16] MEDS: traZODone 100 MG Tablet PO SCH (20:36)
[2018-03-16] MEDS: Enoxaparin Inj 40 MG/0.4 ML Syringe SQ SCH (20:36)
[2018-03-17] MEDS: Modafinil 200 MG Tablet PO SCH (08:21)
[2018-03-17] MEDS: Atenolol 25 MG Tablet PO SCH (08:21)
[2018-03-17] MEDS: Divalproex 500 MG ER Tablet PO SCH ×2 (08:21→21:47)
[2018-03-17] MEDS: Senna/Docusate Sodium 8.6/50 MG Tablet PO SCH ×2 (08:21→21:47)
[2018-03-17] MEDS: Lisinopril 10 MG Tablet PO SCH (08:22)
[2018-03-17] MEDS: Topiramate 25 MG Tablet PO SCH ×2 (08:22→21:46)
[2018-03-17] MEDS: amLODIPine 10 MG Tablet PO SCH (08:22)
[2018-03-17] MEDS: Duloxetine 60 MG DR Capsule PO SCH (08:23)
--- NOTE | 2018-03-17 15:46 | P.PNIM ---
Physical Exam Vital signs: Vital Signs 03/16/18 16:00 03/16/18 20:00 03/17/18 00:00 Temperature 97.4 F L 98.0 F 98.7 F Pulse Rate 74 84 96 H Respiratory Rate 18 17 18 Blood Pressure 123/87 121/77 102/72 Pulse Oximetry 97 98 96 03/17/18 04:00 03/17/18 08:00 03/17/18 12:00 Temperature 98.4 F 98.2 F 97.5 F L Pulse Rate 91 H 91 H 75 Respiratory Rate 18 Blood Pressure 122/77 113/81 103/62 Pulse Oximetry 97 96 95 Intake & Output 03/16/18 03/17/18 03/17/18 18:59 06:59 18:59 Intake Total 618 / 618 480 / 480 Output Total 300 / 300 650 / 650 Balance 318 / 318 -170 / -170 Weight 64.8 kg Intake: Oral 618 / 618 480 / 480 Output: Urine 300 / 300 650 / 650 - Urinary Catheter Management Indwelling Urethral Catheter Cath placed during this visit: yes Reason for continuing: Hourly intake/output Insertion date: 03/03/18 Insertion time: 17:55 Straight Cath placed during this visit: yes, but has since been removed by the nurse Reason for continuing: Not indwelling catheter Insertion date: 03/03/18 Removal date: 03/04/18 Removal time: 18:30 Condom Cath placed during this visit: no Results - Labs CBC & Chem 7: 03/14/18 09:00 03/14/18 06:26 Assessment and Plan - Assessment (1) Altered mental status Code(s): R41.82 - Altered mental status, unspecified Status: Acute (2) Chronic ischemic right MCA stroke Code(s): I69.30 - Unspecified sequelae of cerebral infarction Status: Acute (3) Hx of CABG Code(s): Z95.1 - Presence of aortocoronary bypass graft Status: Acute (4) Seizure disorder Code(s): G40.909 - Epilepsy, unspecified, not intractable, without status epilepticus Status: Acute - Plan Acute metabolic encephalopathy - Heat stroke -received aggressive IV fluid hydration -CT head negative, EEG without epileptic activity. discontinued Seroquel, Neurology following, MRI with old stroke, no acute findings. = 03/17. Patient much improved from previously on admission however still confused and disorganized speech. Appreciate psychiatry assistance. We will continue to monitor for improvement. Severe dehydration - Improved Acute rhabdomyolysis Improving. - Hydration given, improved CK to 600s. electrolyte derangement replaced Acute kidney injury- improved. = BUN slightly elevated on 03/14. Will recheck labs tomorrow. Seizure disorder -Continue Depakote -Keppra -Lorazepam as needed -EEG without epileptic activity. -Neurology following. Appreciate assistance. Depression -Cymbalta -Quetiapine -Trazodone -psych evaluation appreciated. Hypertension - BP controlled; continue current regimen. DVT GI prophylaxis -Teds SCDs -Lovenox -Regular diet Discharge Planning: not a safe discharge at this time. Discharge Planning: home when improved, cleared by psychiatry.. May need rehabilitation. (1) Altered mental status Qualifiers: Altered mental status type: unspecified Qualified Code(s): R41.82 - Altered mental status, unspecified
[2018-03-17] MEDS: traZODone 100 MG Tablet PO SCH (21:46)
[2018-03-17] MEDS: Enoxaparin Inj 40 MG/0.4 ML Syringe SQ SCH (21:47)
[2018-03-18] MEDS: Senna/Docusate Sodium 8.6/50 MG Tablet PO SCH ×2 (09:15→22:20)
[2018-03-18] MEDS: Modafinil 200 MG Tablet PO SCH (09:15)
[2018-03-18] MEDS: Topiramate 25 MG Tablet PO SCH ×2 (09:16→22:20)
[2018-03-18] MEDS: Atenolol 25 MG Tablet PO SCH (09:16)
[2018-03-18] MEDS: amLODIPine 10 MG Tablet PO SCH (09:17)
[2018-03-18] MEDS: Lisinopril 10 MG Tablet PO SCH (09:18)
[2018-03-18] MEDS: Divalproex 500 MG ER Tablet PO SCH ×2 (09:18→22:20)
[2018-03-18] MEDS: Duloxetine 60 MG DR Capsule PO SCH (09:18)
[2018-03-18 10:24] LABS: Baso % (Auto) 0.4 % (0.0-2.0); Eos # (Auto) 0.1 th/mm3 (0.0-0.4); Eos % (Auto) 0.5 % (0.0-4.0); Hematocrit 39.3 % (39.0-51.0); Hemoglobin 13.3 gm/dL (13.0-17.0); Lymph # (Auto) 2.4 th/mm3 (1.0-4.8); Lymph % (Auto) 23.4 % (9.0-44.0); Mean Corpuscular HGB Conc 33.8 % (32.0-36.0); Mean Corpuscular Hemoglobin 29.2 pg (27.0-34.0); Mean Corpuscular Volume 86.4 fL (80.0-100.0); Mono # (Auto) 1.8 th/mm3 (0.0-0.9); Mono % (Auto) 17.8 % (0.0-8.0); Neut # (Auto) 5.9 th/mm3 (1.8-7.7); Neut % (Auto) 57.9 % (16.0-70.0); Platelet Count 279 th/mm3 (150-450); Red Blood Count 4.54 mil/mm3 (4.50-5.90); Red Cell Distribution Width 14.3 % (11.6-17.2); White Blood Count 10.3 th/mm3 (4.0-11.0)
[2018-03-18 10:34] LABS: Albumin 3.1 g/dL (3.4-5.0); Calcium 9.2 mg/dL (8.5-10.1); Carbon Dioxide 24.8 meq/L (21.0-32.0); Magnesium 1.9 mg/dL (1.5-2.5); Phosphorus 2.6 mg/dL (2.5-4.9); Potassium 4.1 meq/L (3.5-5.1)
--- NOTE | 2018-03-18 17:51 | P.PNIM ---
Subjective Interval history: Patient says he is feeling all right. Denies any chest pain shortness of breath. He says he would like to leave the hospital. Continues confused and disoriented. Physical Exam Vital signs: Vital Signs 03/17/18 20:05 03/17/18 20:51 03/18/18 00:00 Temperature 98.3 F 97.8 F Pulse Rate 79 86 Respiratory Rate 18 18 Blood Pressure 103/66 103/65 Pulse Oximetry 99 96 98 03/18/18 04:00 03/18/18 08:00 03/18/18 12:00 Temperature 98.1 F 97.8 F 97.9 F Pulse Rate 81 80 63 Respiratory Rate 17 16 16 Blood Pressure 98/68 L 113/69 96/65 L Pulse Oximetry 97 97 98 Intake & Output 03/17/18 03/18/18 03/18/18 18:59 06:59 18:59 Intake Total 720 / 720 Output Total 600 / 600 Balance 720 / 720 -600 / -600 Intake: Oral 720 / 720 Output: Urine 600 / 600 Narrative: GENERAL: Patient sitting up in bed. Appears comfortable. Disoriented as before. SKIN: Warm and dry. HEAD: Normocephalic. EYES: No scleral icterus. No injection or drainage. NECK: Supple, trachea midline. No JVD or lymphadenopathy. CARDIOVASCULAR: Regular rate and rhythm without murmurs, gallops, or rubs. RESPIRATORY: Breath sounds equal bilaterally. No accessory muscle use. GASTROINTESTINAL: Abdomen soft, non-tender, nondistended. MUSCULOSKELETAL: No cyanosis, or edema. BACK: Nontender without obvious deformity. No CVA tenderness. - Urinary Catheter Management Indwelling Urethral Catheter Cath placed during this visit: yes Reason for continuing: Hourly intake/output Insertion date: 03/03/18 Insertion time: 17:55 Straight Cath placed during this visit: yes, but has since been removed by the nurse Reason for continuing: Not indwelling catheter Insertion date: 03/03/18 Removal date: 03/04/18 Removal time: 18:30 Condom Cath placed during this visit: no Results - Labs CBC & Chem 7: 03/18/18 09:46 03/18/18 09:46 Laboratory Results - last 24 hr 03/18/18 03/18/18 09:46 09:46 WBC 10.3 RBC 4.54 Hgb 13.3 Hct 39.3 MCV 86.4 MCH 29.2 MCHC 33.8 RDW 14.3 Plt Count 279 MPV 8.0 Neut % (Auto) 57.9 Lymph % (Auto) 23.4 [place] % (Auto) 17.8 H Eos % (Auto) 0.5 Baso % (Auto) 0.4 Neut # (Auto) 5.9 Lymph # (Auto) 2.4 [place] # (Auto) 1.8 H Eos # (Auto) 0.1 Baso # (Auto) 0.0 WBC Differential . Differential Comment Auto diff final Hematology Comments Sodium 134 L Potassium 4.1 Chloride 99 Carbon Dioxide 24.8 Anion Gap 10 BUN 14 Creatinine 0.94 Estimated GFR 83 L Random Glucose 78 Calcium 9.2 Phosphorus 2.6 Magnesium 1.9 Albumin 3.1 L Assessment and Plan - Assessment (1) Altered mental status Code(s): R41.82 - Altered mental status, unspecified Status: Acute (2) Chronic ischemic right MCA stroke Code(s): I69.30 - Unspecified sequelae of cerebral infarction Status: Acute (3) Hx of CABG Code(s): Z95.1 - Presence of aortocoronary bypass graft Status: Acute (4) Seizure disorder Code(s): G40.909 - Epilepsy, unspecified, not intractable, without status epilepticus Status: Acute - Plan Acute metabolic encephalopathy - Heat stroke -received aggressive IV fluid hydration -CT head negative, EEG without epileptic activity. discontinued Seroquel, Neurology following, MRI with old stroke, no acute findings. = 03/17. Patient much improved from previously on admission however still confused and disorganized speech. Appreciate psychiatry assistance. We will continue to monitor for improvement. = 03/18. Continues confused, however improving. Will look into starting Alzheimer's medications. Severe dehydration - Improved Acute rhabdomyolysis Improving. - Hydration given, improved CK to 600s. electrolyte derangement replaced Acute kidney injury- improved. = BUN slightly elevated on 03/14. Will recheck labs tomorrow. Seizure disorder -Continue Depakote -Keppra -Lorazepam as needed -EEG without epileptic activity. -Neurology following. Appreciate assistance. Depression -Cymbalta -Quetiapine -Trazodone -psych evaluation appreciated. Hypertension - BP controlled; continue current regimen. DVT GI prophylaxis -Teds SCDs -Lovenox -Regular diet Discharge Planning: home when improved, cleared by psychiatry.. May need rehabilitation. (1) Altered mental status Qualifiers: Altered mental status type: unspecified Qualified Code(s): R41.82 - Altered mental status, unspecified
[2018-03-18] MEDS: Enoxaparin Inj 40 MG/0.4 ML Syringe SQ SCH (22:19)
[2018-03-18] MEDS: traZODone 100 MG Tablet PO SCH (22:19)
--- NOTE | 2018-03-18 22:37 | ECG ---
Date Performed: 03/18/2018 Time Performed: 21:51:02 PTAGE: 57 years EKG: Sinus rhythm LOW QRS VOLTAGE IN PRECORDIAL LEADS INFERIOR AND ANTEROSEPTAL MYOCARDIAL INFARCTION , OF INDETERMIN ATE AGE ABNORMAL ECG PREVIOUS TRACING : 03/04/2018 04.06 Since the previous tracing, no significant change noted DOCTOR: Evelyne Ng Interpretating Date/Time 03/18/2018 22:36:18
[2018-03-19] MEDS: Modafinil 200 MG Tablet PO SCH (08:10)
[2018-03-19] MEDS: Atenolol 25 MG Tablet PO SCH (08:10)
[2018-03-19] MEDS: Divalproex 500 MG ER Tablet PO SCH ×2 (08:10→20:52)
[2018-03-19] MEDS: Topiramate 25 MG Tablet PO SCH ×2 (08:10→20:52)
[2018-03-19] MEDS: amLODIPine 10 MG Tablet PO SCH (08:11)
[2018-03-19] MEDS: Lisinopril 10 MG Tablet PO SCH (08:11)
[2018-03-19] MEDS: Duloxetine 60 MG DR Capsule PO SCH (08:12)
[2018-03-19] MEDS: Senna/Docusate Sodium 8.6/50 MG Tablet PO SCH ×2 (08:12→20:52)
--- NOTE | 2018-03-19 10:33 | P.PNIM ---
Subjective Interval history: Says he is feeling all right. Again refuses to tell me the date. He does know the president is [place] Reid. I discussed with patient's daughter who says he never knows the date. She says he lives with her, and she is home all day, with the exception of going to the store for a couple hours at a time Physical Exam Vital signs: Vital Signs 03/18/18 12:00 03/18/18 16:00 03/18/18 20:00 Temperature 97.9 F 98.8 F 98.6 F Pulse Rate 63 66 68 Respiratory Rate 16 16 16 Blood Pressure 96/65 L 105/67 89/55 L Pulse Oximetry 98 99 99 03/19/18 00:00 03/19/18 04:00 03/19/18 08:00 Temperature 98.6 F 96.2 F L 98.4 F Pulse Rate 76 75 76 Respiratory Rate 16 16 17 Blood Pressure 109/58 L 81/55 L 98/60 L Pulse Oximetry 98 98 94 L Intake & Output 03/18/18 03/19/18 03/19/18 18:59 06:59 18:59 Intake Total 380 / 380 600 / 600 Output Total 1200 / 1200 500 / 500 Balance -820 / -820 100 / 100 Weight 62.3 kg Intake: Oral 380 / 380 600 / 600 Output: Urine 1200 / 1200 500 / 500 Other: Date of Last Bowel Movement 03/15/18 # Bowel Movements 1 Narrative: GENERAL: Patient sitting up in bed. Appears comfortable. Disoriented as before. No change on exam. SKIN: Warm and dry. HEAD: Normocephalic. EYES: No scleral icterus. No injection or drainage. NECK: Supple, trachea midline. No JVD. CARDIOVASCULAR: Regular rate and rhythm without murmurs, gallops, or rubs. RESPIRATORY: Breath sounds equal bilaterally. No accessory muscle use. GASTROINTESTINAL: Abdomen soft, non-tender, nondistended. MUSCULOSKELETAL: No cyanosis, or edema. BACK: Nontender without obvious deformity. No CVA tenderness. - Urinary Catheter Management Indwelling Urethral Catheter Cath placed during this visit: yes Reason for continuing: Hourly intake/output Insertion date: 03/03/18 Insertion time: 17:55 Straight Cath placed during this visit: yes, but has since been removed by the nurse Reason for continuing: Not indwelling catheter Insertion date: 03/03/18 Removal date: 03/04/18 Removal time: 18:30 Condom Cath placed during this visit: no Results - Labs CBC & Chem 7: 03/18/18 09:46 03/18/18 09:46 Laboratory Results - last 24 hr 03/18/18 03/18/18 09:46 09:46 WBC 10.3 RBC 4.54 Hgb 13.3 Hct 39.3 MCV 86.4 MCH 29.2 MCHC 33.8 RDW 14.3 Plt Count 279 MPV 8.0 Neut % (Auto) 57.9 Lymph % (Auto) 23.4 [place] % (Auto) 17.8 H Eos % (Auto) 0.5 Baso % (Auto) 0.4 Neut # (Auto) 5.9 Lymph # (Auto) 2.4 [place] # (Auto) 1.8 H Eos # (Auto) 0.1 Baso # (Auto) 0.0 WBC Differential . Differential Comment Auto diff final Hematology Comments Sodium 134 L Potassium 4.1 Chloride 99 Carbon Dioxide 24.8 Anion Gap 10 BUN 14 Creatinine 0.94 Estimated GFR 83 L Random Glucose 78 Calcium 9.2 Phosphorus 2.6 Magnesium 1.9 Albumin 3.1 L Assessment and Plan - Assessment (1) Altered mental status Code(s): R41.82 - Altered mental status, unspecified Status: Acute (2) Chronic ischemic right MCA stroke Code(s): I69.30 - Unspecified sequelae of cerebral infarction Status: Acute (3) Hx of CABG Code(s): Z95.1 - Presence of aortocoronary bypass graft Status: Acute (4) Seizure disorder Code(s): G40.909 - Epilepsy, unspecified, not intractable, without status epilepticus Status: Acute - Plan Acute metabolic encephalopathy - Heat stroke -received aggressive IV fluid hydration -CT head negative, EEG without epileptic activity. discontinued Seroquel, Neurology following, MRI with old stroke, no acute findings. = 03/17. Patient much improved from previously on admission however still confused and disorganized speech. Appreciate psychiatry assistance. We will continue to monitor for improvement. = 03/18. Continues confused, however improving. Will look into starting Alzheimer's medications. = 03/18. Started on Alzheimer's medication. Discussed with daughter who agrees to take patient home tomorrow afternoon. She says she will be able to supervise the patient 07/01 and will make arrangements to have patient supervised while she is not available Severe dehydration - Improved Acute rhabdomyolysis Improving. - Hydration given, improved CK to 600s. electrolyte derangement replaced Acute kidney injury- improved. = BUN slightly elevated on 03/14. Will recheck labs tomorrow. Seizure disorder -Continue Depakote -Keppra -Lorazepam as needed -EEG without epileptic activity. -Neurology following. Appreciate assistance. Depression -Cymbalta -Quetiapine -Trazodone -psych evaluation appreciated. Hypertension - BP controlled; continue current regimen. DVT GI prophylaxis -Teds SCDs -Lovenox -Regular diet Discharge Planning: home tomorrow afternoon with daughter (1) Altered mental status Qualifiers: Altered mental status type: unspecified Qualified Code(s): R41.82 - Altered mental status, unspecified
[2018-03-19] MEDS: traZODone 100 MG Tablet PO SCH (20:52)
[2018-03-19] MEDS: Enoxaparin Inj 40 MG/0.4 ML Syringe SQ SCH (20:53)
[2018-03-20] MEDS: Divalproex 500 MG ER Tablet PO SCH (08:42)
[2018-03-20] MEDS: Duloxetine 60 MG DR Capsule PO SCH (08:42)
[2018-03-20] MEDS: Lisinopril 10 MG Tablet PO SCH (08:42)
[2018-03-20] MEDS: Modafinil 200 MG Tablet PO SCH (08:42)
[2018-03-20] MEDS: Topiramate 25 MG Tablet PO SCH (08:42)
[2018-03-20] MEDS: Atenolol 25 MG Tablet PO SCH (08:43)
[2018-03-20] MEDS: amLODIPine 10 MG Tablet PO SCH (08:43)
[2018-03-20] MEDS: Senna/Docusate Sodium 8.6/50 MG Tablet PO SCH (08:43)
--- NOTE | 2018-03-20 10:26 | P.PNIM ---
Subjective Interval history: Patient says he is feeling well. Feels like going home. Denies any chest pain shortness of breath. Denies any nausea or vomiting. Denies any muscle pain Physical Exam Vital signs: Vital Signs 03/19/18 12:00 03/19/18 16:00 03/19/18 20:00 Temperature 97.9 F 98.3 F 98.4 F Pulse Rate 82 79 86 Respiratory Rate 17 17 17 Blood Pressure 100/52 L 91/62 L 95/57 L Pulse Oximetry 94 L 93 L 95 03/20/18 00:00 03/20/18 04:00 03/20/18 07:51 Temperature 98.1 F 98.3 F 98.1 F Pulse Rate 91 H 94 H 81 Respiratory Rate 17 16 16 Blood Pressure 106/62 111/59 L 110/80 Pulse Oximetry 94 L 93 L 95 Intake & Output 03/19/18 03/20/18 03/20/18 18:59 06:59 18:59 Intake Total 600 / 600 461 / 461 Output Total 400 / 400 Balance 600 / 600 61 / 61 Weight 61.4 kg Intake: Oral 600 / 600 461 / 461 Output: Urine 400 / 400 Other: # Voids 2 # Bowel Movements 0 Narrative: GENERAL: Patient sitting up in bed. Appears comfortable. Disoriented as before. Pleasant and agreeable. Again, no change on exam. SKIN: Warm and dry. HEAD: Normocephalic. EYES: No scleral icterus. No injection or drainage. NECK: Supple, trachea midline. No JVD. CARDIOVASCULAR: Regular rate and rhythm without murmurs, gallops, or rubs. RESPIRATORY: Breath sounds equal bilaterally. No accessory muscle use. GASTROINTESTINAL: Abdomen soft, non-tender, nondistended. MUSCULOSKELETAL: No cyanosis, or edema. BACK: Nontender without obvious deformity. No CVA tenderness. - Urinary Catheter Management Indwelling Urethral Catheter Cath placed during this visit: yes Reason for continuing: Hourly intake/output Insertion date: 03/03/18 Insertion time: 17:55 Straight Cath placed during this visit: yes, but has since been removed by the nurse Reason for continuing: Not indwelling catheter Insertion date: 03/03/18 Removal date: 03/04/18 Removal time: 18:30 Condom Cath placed during this visit: no Results - Labs CBC & Chem 7: 03/18/18 09:46 03/18/18 09:46 Assessment and Plan - Assessment (1) Altered mental status Code(s): R41.82 - Altered mental status, unspecified Status: Acute (2) Chronic ischemic right MCA stroke Code(s): I69.30 - Unspecified sequelae of cerebral infarction Status: Acute (3) Hx of CABG Code(s): Z95.1 - Presence of aortocoronary bypass graft Status: Acute (4) Seizure disorder Code(s): G40.909 - Epilepsy, unspecified, not intractable, without status epilepticus Status: Acute - Plan Acute metabolic encephalopathy - Heat stroke -received aggressive IV fluid hydration -CT head negative, EEG without epileptic activity. discontinued Seroquel, Neurology following, MRI with old stroke, no acute findings. = 03/17. Patient much improved from previously on admission however still confused and disorganized speech. Appreciate psychiatry assistance. We will continue to monitor for improvement. = 03/18. Continues confused, however improving. Will look into starting Alzheimer's medications. = 03/19. Started on Alzheimer's medication. Discussed with daughter who agrees to take patient home tomorrow afternoon. She says she will be able to supervise the patient 07/01 and will make arrangements to have patient supervised while she is not available = 03/20. Plan for discharge home this afternoon with daughter. Severe dehydration - Improved Acute rhabdomyolysis Improving. - Hydration given, improved CK to 600s. electrolyte derangement replaced Acute kidney injury- improved. = BUN slightly elevated on 03/14. Will recheck labs tomorrow. Seizure disorder -Continue Depakote -Keppra -Lorazepam as needed -EEG without epileptic activity. -Neurology following. Appreciate assistance. Depression -Cymbalta -Quetiapine -Trazodone -psych evaluation appreciated. Hypertension - BP controlled; continue current regimen. DVT GI prophylaxis -Teds SCDs -Lovenox -Regular diet Discharge Planning: home tomorrow afternoon with daughter. Daughter conveys that she will make sure patient is supervised at all times. (1) Altered mental status Qualifiers: Altered mental status type: unspecified Qualified Code(s): R41.82 - Altered mental status, unspecified
--- NOTE | 2018-03-20 10:27 | P.DS ---
Date of admission: 03/03/18 20:09 Primary care physician: No Primary Care Physician Brief History from admission: 57-year-old male, with past medical history significant for seizure disorder, presents for an evaluation of altered mental status. He was found down outside by family. Is unknown how long he was outside. EMS states that on their arrival they found him hot and without sweats production. He was tachycardic and hypotensive at which time they applied ice packs to his groin and axilla started IV fluids. They gave him 0.4 mg of Narcan to which he did not respond. They state that he has started to come around mentally more while in route. He was resuscitated in the emergency department with aggressive IV fluid resuscitation and is admitted to ICU for further management. DS: Diagnosis - Discharge Diagnosis (1) Altered mental status Status: Acute (2) Chronic ischemic right MCA stroke Status: Acute (3) Hx of CABG Status: Acute (4) Seizure disorder Status: Chronic DS: Medications - Discharge Medications Prescriptions: atenolol 12.5 mg PO DAILY #30 tab divalproex 500 mg PO HS 30 Days #60 tab duloxetine 60 mg PO DAILY 30 Days #30 cap lisinopril 10 mg PO DAILY 30 Days #15 tab memantine [Namenda] 5 mg PO BID 30 Days #60 tab modafinil 200 mg PO DAILY #30 tab trazodone 300 mg PO HS 30 Days #30 tab DS: Summary Hospital Course: Patient presented with acute metabolic encephalopathy, dehydration, rhabdomyolysis with CK up to 11,000, acute kidney injury with creatinine up to 3.9, heat stroke. No acute findings on CT head. Patient improved with aggressive rehydration. Patient continued to be disoriented to date, however as per daughter he is always disoriented to date, and she feels he is back to baseline. Patient lives with daughter, and daughter says that she will make sure that patient is supervised /. Patient is to avoid strenuous outdoor activity. Patient and daughter convey understanding. For problem-based summary from most recent progress note, please see below. Acute metabolic encephalopathy - Heat stroke -received aggressive IV fluid hydration -CT head negative, EEG without epileptic activity. discontinued Seroquel, Neurology following, MRI with old stroke, no acute findings. = 03/17. Patient much improved from previously on admission however still confused and disorganized speech. Appreciate psychiatry assistance. We will continue to monitor for improvement. = 03/18. Continues confused, however improving. Will look into starting Alzheimer's medications. = 03/19. Started on Alzheimer's medication. Discussed with daughter who agrees to take patient home tomorrow afternoon. She says she will be able to supervise the patient 07/01 and will make arrangements to have patient supervised while she is not available = 03/20. Plan for discharge home this afternoon with daughter. Severe dehydration - Improved Acute rhabdomyolysis Improving. - Hydration given, improved CK to 600s. electrolyte derangement replaced Acute kidney injury- improved. = BUN slightly elevated on 03/14. Will recheck labs tomorrow. Seizure disorder -Continue Depakote -Keppra -Lorazepam as needed -EEG without epileptic activity. -Neurology following. Appreciate assistance. Depression -Cymbalta -Quetiapine -Trazodone -psych evaluation appreciated. Hypertension - BP controlled; continue current regimen. DVT GI prophylaxis -Teds SCDs -Lovenox -Regular diet Discharge Planning: home tomorrow afternoon with daughter. Daughter conveys that she will make sure patient is supervised at all times. - Time Spent with Patient Total time spent providing and/or coordinating discharge services: Greater than 30 minutes - Quality: VTE Deep Vein Thrombosis/Pulmonary Embolism Present on Admission: No Exam Vital signs: Vital Signs 03/19/18 12:00 03/19/18 16:00 03/19/18 20:00 Temperature 97.9 F 98.3 F 98.4 F Pulse Rate 82 79 86 Respiratory Rate 17 17 17 Blood Pressure 100/52 L 91/62 L 95/57 L Pulse Oximetry 94 L 93 L 95 03/20/18 00:00 03/20/18 04:00 03/20/18 07:51 Temperature 98.1 F 98.3 F 98.1 F Pulse Rate 91 H 94 H 81 Respiratory Rate 17 16 16 Blood Pressure 106/62 111/59 L 110/80 Pulse Oximetry 94 L 93 L 95 Intake & Output 03/19/18 03/20/18 03/20/18 18:59 06:59 18:59 Intake Total 600 / 600 461 / 461 Output Total 400 / 400 Balance 600 / 600 61 / 61 Weight 61.4 kg Intake: Oral 600 / 600 461 / 461 Output: Urine 400 / 400 Other: # Voids 2 # Bowel Movements 0 Results Procedures completed during hospitalization: no invasive procedures. - Impressions ITS Impressions Chest X-Ray 03/03/18 15:56 CONCLUSION: No acute cardiopulmonary disease. Head CT 03/03/18 15:56 CONCLUSION: 1. Remote infarct right posterior MCA distribution. No acute findings. . Head MRI 03/08/18 21:11 CONCLUSION: 1. Significant degradation by motion 2. 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 3. Otherwise negative for acute process Discharge Plan - Discharge Disposition Patient Disposition: /Home Health Service - Discharge Condition Condition: Good - Discharge Order Discharge Orders: Discharge Order (Routine); Ordered 03/20/18 Ordered By: Geo Landry - Discharge Details Anticipated Discharge Date: 03/12/18 Discharge Comment: okay for dc when his daughter comes to pick him up. Follow with PCP in three days. - Physicians Team Primary Care Provider: Primary Care Physici,No Attending Provider: Geo Landry Other Providers: [employer],Insurance ; Efren Royal MD ; [facility] ; Rehab,[facility] ; Fam Hilliard MD
[2018-03-20 12:34] VITALS: BP 96/52; PULSE 80; RESP 20; TEMP 97.9; O2SAT 96
== END 2018-03-20 16:19 | disposition home health service (06) ==
LOC: PHED 15:54 → PHEDA 20:09 → HIMC 21:40 → N04 03-13 19:30
PROVIDERS: ADMIT Internal Medicine; ATTEND Internal Medicine

== ENCOUNTER 2018-03-21 18:43 | Observation (INO) ==
[2018-03-21] MEDS ORDERED: Sod Chloride 0.9% Inj 1,000 ML IV.CONT SCH (19:15)
--- NOTE | 2018-03-21 19:17 | ED ---
HPI General Chief Complaint: Altered Mental Status Stated Complaint: Medical Time Seen by Provider: 03/21/18 19:07 History of Present Illness HPI narrative: Patient is a 67-year-old male with history of renal failure seizure disorder, psychiatric disorder, hypotension, he was discharged from the hospital yesterday, found by family very altered, lethargic, patient was brought to ER by EMS. No obvious trauma signs noted. Patient is lethargic wakes up open his eyes easily. Denies any pain, not oriented. Systolic blood pressure is 95. Related Data Previous Rx's Medication Instructions Recorded amlodipine [Norvasc] 10 mg PO DAILY tab 03/12/18 modafinil 200 mg PO DAILY #30 tab 03/12/18 atenolol 12.5 mg PO DAILY #30 tab 03/20/18 divalproex 500 mg PO HS 30 Days #60 tab 03/20/18 duloxetine 60 mg PO DAILY 30 Days #30 cap 03/20/18 levetiracetam 250 mg PO Q12H 30 Days #60 tab 03/20/18 lisinopril 10 mg PO DAILY 30 Days #15 tab 03/20/18 memantine [Namenda] 5 mg PO BID 30 Days #60 tab 03/20/18 trazodone 300 mg PO HS 30 Days #30 tab 03/20/18 Allergies Allergy/AdvReac Type Severity Reaction Status Date / Time acetaminophen AdvReac Intermediate pt has Verified 02/19/18 03:02 hepatitis c told not to take Review of Systems ROS: all other systems reviewed are negative Psychiatric Comments: Altered [facility] Social History Social History Substance History: Unable to Obtain Smoking Status: Unknown if ever smoked Tobacco Type: Cigarettes How Often Do You Have a Drink Containing Alcohol: Unable to Obtain Recent Travel in [facility] within the Last 8 Weeks: No Recent Out of Country Travel within the Last 8 Weeks: No Immunization History Tetanus Immunization: Unable to Assess Exam Narrative Exam Narrative: GENERAL: 57-year-old male lethargic SKIN: Focused skin assessment warm/dry. HEAD: Atraumatic. Normocephalic. EYES: Pupils equal and round. No scleral icterus. No injection or drainage. ENT: No nasal bleeding or discharge. Mucous membranes pink and moist. NECK: Trachea midline. No JVD. CARDIOVASCULAR: Regular rate and rhythm. No murmur appreciated. RESPIRATORY: No accessory muscle use. Clear to auscultation. Breath sounds equal bilaterally. GASTROINTESTINAL: Abdomen soft, non-tender, nondistended. Hepatic and splenic margins not palpable. MUSCULOSKELETAL: No obvious deformities. No clubbing. No cyanosis. No edema. NEUROLOGICAL: Awake and alert. No obvious cranial nerve deficits. Motor grossly within normal limits. Normal speech. PSYCHIATRIC: Appropriate mood and affect; insight and judgment normal. Course Initial Documented Vital Signs Pulse Rate 94 H 03/21/18 19:08 Respiratory Rate 20 03/21/18 19:08 Blood Pressure 92/63 L 03/21/18 19:08 Pulse Oximetry 97 03/21/18 19:08 Last Documented Vital Signs Temperature 98.4 F 03/22/18 04:00 Pulse Rate 77 03/22/18 01:01 Respiratory Rate 16 03/22/18 04:00 Blood Pressure 93/52 L 03/22/18 01:01 Pulse Oximetry 98 03/22/18 01:01 Medical Decision Making [facility] Narrative Medical decision making narrative: 57-year-old male, lethargic. Will be evaluated in the emergency room for stroke, sepsis, high ammonia level, acute renal failure. Labs, x-ray, CAT scan , ordered. IV fluids initiated. 8 PM: Patient is altered became agitated, moving around, dangerous to himself, Ativan and Haldol given. 2300: Patient altered, ammonia level elevated. CT head drug screen negative. Patient also dehydrated, IV fluids given. He will be admitted for observation further evaluation and treatment. Medical Screen Exam Complete: Yes Emergency Medical Condition: Yes Differential Diagnosis Differential Diagnosis: Stroke versus postictal state versus sepsis versus acute renal failure. Lab Data Result diagrams: 03/21/18 23:38 03/21/18 19:43 Lab Results 03/21/18 03/21/18 03/21/18 Range/Units 19:43 19:43 19:43 WBC (4.0-11.0) th/mm3 RBC (4.50-5.90) mil/mm3 Hgb (13.0-17.0) gm/dL Hct (39.0-51.0) % MCV (80.0-100.0) fL MCH (27.0-34.0) pg MCHC (32.0-36.0) % RDW (11.6-17.2) % Plt Count (150-450) th/mm3 MPV (7.0-11.0) fL Neut % (Auto) (16.0-70.0) % Lymph % (Auto) (9.0-44.0) % Trigg % (Auto) (0.0-8.0) % Eos % (Auto) (0.0-4.0) % Baso % (Auto) (0.0-2.0) % Neut # (Auto) (1.8-7.7) th/mm3 Lymph # (Auto) (1.0-4.8) th/mm3 Trigg # (Auto) (0.0-0.9) th/mm3 Eos # (Auto) (0.0-0.4) th/mm3 Baso # (Auto) (0.0-0.2) th/mm3 WBC Differential Differential Comment Sodium 138 (136-145) meq/L Potassium 4.2 (3.5-5.1) meq/L Chloride 104 (98-107) meq/L Carbon Dioxide 23.2 (21.0-32.0) meq/L Anion Gap 11 (5-15) meq/L BUN 20 H (7-18) mg/dL Creatinine 1.50 H (0.60-1.30) mg/dL Estimated GFR 48 L (>89) mL/min POC Glucose (68-110) mg/dl Random Glucose 81 (74-106) mg/dL Lactic Acid 2.0 (0.4-2.0) mmol/L Calcium 9.4 (8.5-10.1) mg/dL Total Bilirubin 0.3 (0.2-1.0) mg/dL AST 16 (15-37) U/L ALT 24 (12-78) U/L Alkaline Phosphatase 68 (45-117) U/L Ammonia 47 H (11-32) mcmol/L Troponin I Less than 0.02 L (0.02-0.05) ng/mL Total Protein 6.7 (6.4-8.2) g/dL Albumin 2.9 L (3.4-5.0) g/dL Urine Color (Yellw/Straw) Urine Clarity (Clear) Urine pH (5.0-8.5) Ur Specific [place] (1.002-1.035) Urine Protein (Neg-Trace) mg/dL Urine Glucose (UA) (Negative) mg/dL Urine Ketones (Negative) mg/dL Urine Occult Blood (Negative) Urine Nitrate (Negative) Urine Bilirubin (Negative) Urine Urobilinogen (Less than 2) mg/dL Ur Leukocyte Esterase (Negative) Urine RBC (0-3) /hpf Urine WBC (0-5) /hpf Hyaline Casts (0-3) /lpf Urine Mucus (Occasional) /lpf Micro UA Comment Ur Microscopic Review Urine Culture Comments Urine Opiates Screen (Neg) Ur Barbiturates Screen (Neg) Ur Amphetamines Screen (Neg) U Benzodiazepines Scrn (Neg) Urine Cocaine Screen (Neg) U Cannabinoids Screen (Neg) Serum Alcohol Less than 3 (0-5) mg/dL 03/21/18 03/21/18 03/21/18 Range/Units 21:01 21:02 22:37 WBC (4.0-11.0) th/mm3 RBC (4.50-5.90) mil/mm3 Hgb (13.0-17.0) gm/dL Hct (39.0-51.0) % MCV (80.0-100.0) fL MCH (27.0-34.0) pg MCHC (32.0-36.0) % RDW (11.6-17.2) % Plt Count (150-450) th/mm3 MPV (7.0-11.0) fL Neut % (Auto) (16.0-70.0) % Lymph % (Auto) (9.0-44.0) % Trigg % (Auto) (0.0-8.0) % Eos % (Auto) (0.0-4.0) % Baso % (Auto) (0.0-2.0) % Neut # (Auto) (1.8-7.7) th/mm3 Lymph # (Auto) (1.0-4.8) th/mm3 Trigg # (Auto) (0.0-0.9) th/mm3 Eos # (Auto) (0.0-0.4) th/mm3 Baso # (Auto) (0.0-0.2) th/mm3 WBC Differential Differential Comment Sodium (136-145) meq/L Potassium (3.5-5.1) meq/L Chloride (98-107) meq/L Carbon Dioxide (21.0-32.0) meq/L Anion Gap (5-15) meq/L BUN (7-18) mg/dL Creatinine (0.60-1.30) mg/dL Estimated GFR (>89) mL/min POC Glucose 56 L 103 (68-110) mg/dl Random Glucose (74-106) mg/dL Lactic Acid (0.4-2.0) mmol/L Calcium (8.5-10.1) mg/dL Total Bilirubin (0.2-1.0) mg/dL AST (15-37) U/L ALT (12-78) U/L Alkaline Phosphatase (45-117) U/L Ammonia (11-32) mcmol/L Troponin I (0.02-0.05) ng/mL Total Protein (6.4-8.2) g/dL Albumin (3.4-5.0) g/dL Urine Color (Yellw/Straw) Urine Clarity (Clear) Urine pH (5.0-8.5) Ur Specific [place] (1.002-1.035) Urine Protein (Neg-Trace) mg/dL Urine Glucose (UA) (Negative) mg/dL Urine Ketones (Negative) mg/dL Urine Occult Blood (Negative) Urine Nitrate (Negative) Urine Bilirubin (Negative) Urine Urobilinogen (Less than 2) mg/dL Ur Leukocyte Esterase (Negative) Urine RBC (0-3) /hpf Urine WBC (0-5) /hpf Hyaline Casts (0-3) /lpf Urine Mucus (Occasional) /lpf Micro UA Comment Ur Microscopic Review Urine Culture Comments Urine Opiates Screen Neg (Neg) Ur Barbiturates Screen Neg (Neg) Ur Amphetamines Screen Neg (Neg) U Benzodiazepines Scrn Neg (Neg) Urine Cocaine Screen Neg (Neg) U Cannabinoids Screen Neg (Neg) Serum Alcohol (0-5) mg/dL 03/21/18 03/21/18 Range/Units 22:37 23:38 WBC 10.1 (4.0-11.0) th/mm3 RBC 4.46 L (4.50-5.90) mil/mm3 Hgb 13.3 (13.0-17.0) gm/dL Hct 39.3 (39.0-51.0) % MCV 88.1 (80.0-100.0) fL MCH 29.9 (27.0-34.0) pg MCHC 34.0 (32.0-36.0) % RDW 14.8 (11.6-17.2) % Plt Count 206 (150-450) th/mm3 MPV 8.1 (7.0-11.0) fL Neut % (Auto) 66.2 (16.0-70.0) % Lymph % (Auto) 23.5 (9.0-44.0) % Trigg % (Auto) 9.4 H (0.0-8.0) % Eos % (Auto) 0.2 (0.0-4.0) % Baso % (Auto) 0.7 (0.0-2.0) % Neut # (Auto) 6.7 (1.8-7.7) th/mm3 Lymph # (Auto) 2.4 (1.0-4.8) th/mm3 Trigg # (Auto) 1.0 H (0.0-0.9) th/mm3 Eos # (Auto) 0.0 (0.0-0.4) th/mm3 Baso # (Auto) 0.1 (0.0-0.2) th/mm3 WBC Differential . Differential Comment Auto diff final Sodium (136-145) meq/L Potassium (3.5-5.1) meq/L Chloride (98-107) meq/L Carbon Dioxide (21.0-32.0) meq/L Anion Gap (5-15) meq/L BUN (7-18) mg/dL Creatinine (0.60-1.30) mg/dL Estimated GFR (>89) mL/min POC Glucose (68-110) mg/dl Random Glucose (74-106) mg/dL Lactic Acid (0.4-2.0) mmol/L Calcium (8.5-10.1) mg/dL Total Bilirubin (0.2-1.0) mg/dL AST (15-37) U/L ALT (12-78) U/L Alkaline Phosphatase (45-117) U/L Ammonia (11-32) mcmol/L Troponin I (0.02-0.05) ng/mL Total Protein (6.4-8.2) g/dL Albumin (3.4-5.0) g/dL Urine Color Yellow (Yellw/Straw) Urine Clarity Clear (Clear) Urine pH 6.0 (5.0-8.5) Ur Specific [place] 1.012 (1.002-1.035) Urine Protein Negative (Neg-Trace) mg/dL Urine Glucose (UA) Negative (Negative) mg/dL Urine Ketones Trace H (Negative) mg/dL Urine Occult Blood Negative (Negative) Urine Nitrate Negative (Negative) Urine Bilirubin Negative (Negative) Urine Urobilinogen Less than 2 (Less than 2) mg/dL Ur Leukocyte Esterase Negative (Negative) Urine RBC Less than 1 (0-3) /hpf Urine WBC 1 (0-5) /hpf Hyaline Casts 1 (0-3) /lpf Urine Mucus Few H (Occasional) /lpf Micro UA Comment Culture not ind Ur Microscopic Review Not Reportable Urine Culture Comments Culture not ind Urine Opiates Screen (Neg) Ur Barbiturates Screen (Neg) Ur Amphetamines Screen (Neg) U Benzodiazepines Scrn (Neg) Urine Cocaine Screen (Neg) U Cannabinoids Screen (Neg) Serum Alcohol (0-5) mg/dL Imaging Data Radiologist's impression: Chest X-Ray 03/21/18 19:09 CONCLUSION: No evidence of acute cardiopulmonary disease. Head CT 03/21/18 19:09 CONCLUSION: 1. No acute intracranial abnormality. 2. Small, old right parietal lobe infarct. . ECG Data EKG Prior to Arrival: Yes Attestation: I personally reviewed and interpreted this ECG as follows: Prior ECG tracings: available for review Interpretation: Normal sinus rhythm at rate 95, no ST elevation, nonspecific t- wave changes. Discharge Plan Discharge Disposition Patient Disposition: 30 Still Patient Discharge Condition Condition: Fair Discharge Details Diagnosis: Encephalopathy acute, Seizure disorder, Psychiatric diagnosis, Chronic renal insufficiency, Cerebroatrophic hyperammonemia Physicians Team ED Provider: Artis Gardner Primary Care Provider: UNKNOWN, Attending Provider: Sonia Bell Status ED Status: Left Department Discharge Information Discharge Date/Time: 03/22/18 00:51
--- NOTE | 2018-03-21 19:35 | XR ---
EXAM DATE: 03/21/2018 7:09 PM EDT AGE/SEX: 57 years / Male INDICATIONS: Short of breath and evaluate diaphragm. CLINICAL DATA: This is the patient's initial encounter. Patient reports that signs and symptoms have been present for 1 day and indicates a pain score of 0/10. MEDICAL/SURGICAL HISTORY: Cardiovascular disease. CABG. Fusion, thoracic. COMPARISON: [facility], CHEST 1V SINGLE AP, 03/03/2018. . FINDINGS: A single AP view of the chest demonstrates the lungs to be symmetrically aerated without evidence of mass, infiltrate or effusion. The cardiomediastinal contours are unremarkable. Median sternotomy ch anges are again noted. Osseous structures are grossly intact. Surgical changes at the thoracolumbar j unction again noted. CONCLUSION: No evidence of acute cardiopulmonary disease. Electronically signed by: Abran Shaikh MD 03/21/2018 7:34 PM EDT
[2018-03-21] MEDS ORDERED: Haloperidol Inj 5 MG/ML Ampul IM ONE ×2 (19:51→20:09)
[2018-03-21 20:24] LABS: Albumin 2.9 g/dL (3.4-5.0); Anion Gap 11 meq/L (5-15); Aspartate Aminotransferase 16 U/L (15-37); Blood Urea Nitrogen 20 mg/dL (7-18); Calcium 9.4 mg/dL (8.5-10.1); Carbon Dioxide 23.2 meq/L (21.0-32.0); Chloride 104 meq/L (98-107); Glomerular Filtration Rate 48 mL/min (>89); Glucose,Random 81 mg/dL (74-106); Potassium 4.2 meq/L (3.5-5.1); Sodium 138 meq/L (136-145)
[2018-03-21 20:26] LABS: Alanine Aminotransferase 24 U/L (12-78)
[2018-03-21 20:29] LABS: Alkaline Phosphatase 68 U/L (45-117); Total Protein 6.7 g/dL (6.4-8.2)
--- NOTE | 2018-03-21 21:02 | CT ---
EXAM DATE: 03/21/2018 7:17 PM EDT AGE/SEX: 57 years / Male INDICATIONS: Altered mental status. CLINICAL DATA: This is the patient's initial encounter. Patient reports that signs and symptoms have been present for 1 day and indicates a pain score of Nonresponsive. MEDICAL/SURGICAL HISTORY: Hypertension. Renal failure. Seizures. CABG. Carotid surgery. RADIATION DOSE: 29.45 CTDI (mGy) COMPARISON: [facility], CT HEAD W/O CONTRAST, 03/03/2018. C, MR HEAD W & W/O CONTRAST, 03/08/2018. . TECHNIQUE: CT of the head without contrast. Using automated exposure control and adjustment of the mA and/or kV according to patient size, radiation dose was kept as low as reasonably achievable to ob tain optimal diagnostic quality images. DICOM format image data is available electronically for revi ew and comparison. FINDINGS: Cerebrum: The ventricles are normal for age. No evidence of midline shift, mass lesion, hemorrhage or acute infarction. No extraaxial fluid collections are seen. The small area of encephalomalacia of the right parietal lobe is again noted. No evidence of an acute ischemic event. Posterior Fossa: The cerebellum and brainstem are intact. The 4th ventricle is midline. The cerebe llopontine angle is unremarkable. Extracranial: The visualized portion of the orbits is intact. Skull: The calvaria is intact. No evidence of skull fracture. CONCLUSION: 1. No acute intracranial abnormality. 2. Small, old right parietal lobe infarct. . Electronically signed by: Abran Shaikh MD 03/21/2018 9:00 PM EDT
[2018-03-21 23:02] LABS: Amphetamine Screen,Urine Neg (Neg); Barbiturate Screen,Urine Neg (Neg); Cannabinoid Screen,Urine Neg (Neg); Cocaine Screen,Urine Neg (Neg)
[2018-03-21 23:09] LABS: Bilirubin,Urine Negative (Negative); Clarity,Urine Clear (Clear); Color,Urine Yellow (Yellw/Straw); Glucose,Urine (UA) Negative (Negative); Hyaline Casts,Urine 1 /lpf (0-3); Leukocyte Esterase,Urine Negative (Negative); Mucus,Urine Few /lpf (Occasional); Nitrite,Urine Negative (Negative); Specific Gravity,Urine 1.012 (1.002-1.035)
[2018-03-21 23:10] LABS: Opiate Screen,Urine Neg (Neg)
[2018-03-21] MEDS ORDERED: Bisacodyl 10 MG Supp RECTAL PRN (23:42)
--- NOTE | 2018-03-21 23:46 | P.HPIM ---
History of Present Illness Primary Care Physician: UNKNOWN History of Present Illness: This is a 57-year-old male with a PMH of HTN, Depression and Seizure Disorder who was brought to the ER by EMS for AMS. Recent admit 03/03-03/20/18 for similar presentation, thought to have Acute Encephalopathy due to Heat Stroke w / KEVIN, CT Head negative, EEG w/ no epileptic activity, s/p eval by Neurology and Psychiatry, continued on Depakote, Keppra and started on Namenda in addition to Cymbalta, Quetiapine and Trazodone. D/c'd home w/ Daughter who noted pt to be increasingly confused today. Unable to obtain history from patient. On arrival, BP 92/63, HR 94, O2 sat 97% on RA. CBC unremarkable. Creatinine 1.50, previously 0.94 on 04-03. Troponin negative. Ammonia 47. LFTs normal. CT Head with no acute findings. CXR negative. While in ER, pt initially lethargic, later became agitated/combative, requiring Haldol and Ativan, now calm, but remains confused. - Diagnosis (1) Encephalopathy (2) KEVIN (acute kidney injury) (3) Seizure disorder Review of Systems PAST FAMILY HISTORY: Unknown unobtainable due to mental status PMFSH - History History Provided By: Landscape Gardener / EMT - Medical History Medical History: Medical History (Last Reviewed 03/21/18 @ 19:08 by Darcie Norman RN) Psychiatric diagnosis (Acute) Hypertension (Acute) Seizure disorder (Acute) Chronic pain - Surgical History Surgical History: Surgical History (Last Reviewed 03/21/18 @ 19:08 by Darcie Norman RN) Status post carotid surgery (Acute) Hx of CABG (Acute) - Tobacco History Smoking Status: Unknown if ever smoked Tobacco Type: Cigarettes - Alcohol History How Often Do You Have a Drink Containing Alcohol: Unable to Obtain - Substance Use History Substance History: Unable to Obtain - Travel History Recent Travel in the [place] Within the Last 8 Weeks: No Recent Travel Out of the Country Within the Last 8 Weeks: No - Immunization History Tetanus Immunization: Unable to Assess Medications and Allergies Active Medications: Active Medications Sodium Chloride (Ns Inj) 1,000 mls @ 200 mls/hr IV.CONT .Q5H JUDY Last Admin: 03/21/18 20:00 Dose: 200 mls/hr Sodium Chloride (Ns Flush) 2 ml IV.FLUSH PRN PRN PRN Reason: FLUSH AFTER USING IV ACCESS Allergies Allergy/AdvReac Type Severity Reaction Status Date / Time acetaminophen AdvReac Intermediate pt has Verified 02/19/18 03:02 hepatitis c told not to take Exam Vital signs: Vital Signs 03/21/18 19:08 03/21/18 19:52 03/21/18 21:12 Pulse Rate 94 H Respiratory Rate 20 Blood Pressure 92/63 L Pulse Oximetry 97 95 98 03/21/18 23:23 Pulse Rate 81 Respiratory Rate 20 Blood Pressure 117/71 Pulse Oximetry 96 Intake & Output 03/21/18 03/21/18 03/22/18 06:59 18:59 06:59 Weight 72.575 kg Narrative: PE: GENERAL: Middle-aged white male in no acute distress, mildly agitated/fidgety SKIN: Focused skin assessment warm and dry. HEENT: PERRLA, EOMI. No scleral icterus or conjunctival pallor. No lid lag or facial droop. CARDIOVASCULAR: Regular rate and rhythm. No obvious murmurs to auscultation. No chest tenderness to palpation. RESPIRATORY: No obvious rhonchi or wheezing. Clear to auscultation. Breath sounds equal bilaterally. GASTROINTESTINAL: Abdomen soft, non-tender, nondistended. BS normal. MUSCULOSKELETAL: Extremities without clubbing, cyanosis, or edema. No obvious deformities. NEUROLOGICAL: Awake, alert, confused. No focal neurologic deficits. Moving both upper and lower extremities spontaneously. PSYCHIATRIC: Appropriate mood and affect. Insight and judgment normal. Results - Labs CBC & Chem 7: 03/21/18 23:38 03/21/18 19:43 Labs: BMP 03/21/18 19:43 Sodium 138 Potassium 4.2 Chloride 104 Carbon Dioxide 23.2 BUN 20 H Creatinine 1.50 H Calcium 9.4 Cardiac Enzymes 03/21/18 Range/Units 19:43 Troponin I Less than 0.02 L (0.02-0.05) ng/mL Liver Function 03/21/18 Range/Units 19:43 Total Bilirubin 0.3 (0.2-1.0) mg/dL AST 16 (15-37) U/L ALT 24 (12-78) U/L Alkaline Phosphatase 68 (45-117) U/L Albumin 2.9 L (3.4-5.0) g/dL Urine 03/21/18 Range/Units 22:37 Urine Color Yellow (Yellw/Straw) Urine Clarity Clear (Clear) Urine pH 6.0 (5.0-8.5) Ur Specific [place] 1.012 (1.002-1.035) Urine Protein Negative (Neg-Trace) mg/dL Urine Glucose (UA) Negative (Negative) mg/dL - Imaging Impressions Chest X-Ray 03/21/18 19:09 CONCLUSION: No evidence of acute cardiopulmonary disease. Head CT 03/21/18 19:09 CONCLUSION: 1. No acute intracranial abnormality. 2. Small, old right parietal lobe infarct. . Caprini VTE Risk Assessment Caprini VTE Risk Assessment: No/Low Risk (score <= 1) Caprini Risk Assessment Model: Point Value = 1 Point Value = 2 Point Value = 3 Point Value = 5 Age 41-60 Minor surgery BMI > 25 kg/m2 Swollen legs Varicose veins or History of unexplained or recurrent spontaneous Oral contraceptives or hormone replacement Sepsis (< 1 month) Serious lung disease, including pneumonia (< 1 month) Abnormal pulmonary function Acute myocardial infarction Congestive heart failure (< 1 month) History of inflammatory bowel disease Medical patient at bed rest Age 61-74 Arthroscopic surgery Major open surgery (> 45 min) Laparoscopic surgery (> 45 min) Malignancy Confined to bed (> 72 hours) Immobilizing plaster cast Central venous access Age >= 75 History of VTE Family history of VTE Factor V Leiden Prothrombin [id number] Lupus anticoagulant Anticardiolipin antibodies Elevated serum homocysteine Heparin-induced thrombocytopenia Other congenital or acquired thrombophilia Stroke (< 1 month) Elective arthroplasty Hip, pelvis, or leg fracture Acute spinal cord injury (< 1 month) Prophylaxis Regimen: Total Risk Factor Score Risk Level Prophylaxis Regimen 0-1 Low Early ambulation 2 Moderate Order ONE of the following: *Sequential Compression Device (SCD) *Heparin 5000 units SQ BID 3-4 Higher Order ONE of the following medications: *Heparin 5000 units SQ TID *Enoxaparin/Lovenox 40 mg SQ daily (WT < 150 kg, CrCl > 30 mL/min) *Enoxaparin/Lovenox 30 mg SQ daily (WT < 150 kg, CrCl > 10-29 mL/min) *Enoxaparin/Lovenox 30 mg SQ BID (WT < 150 kg, CrCl > 30 mL/min) AND/OR *Sequential Compression Device (SCD) 5 or more Highest Order ONE of the following medications: *Heparin 5000 units SQ TID (Preferred with Epidurals) *Enoxaparin/Lovenox 40 mg SQ daily (WT < 150 kg, CrCl > 30 mL/min) *Enoxaparin/Lovenox 30 mg SQ daily (WT < 150 kg, CrCl > 10-29 mL/min) *Enoxaparin/Lovenox 30 mg SQ BID (WT < 150 kg, CrCl > 30 mL/min) AND *Sequential Compression Device (SCD) Assessment and Plan - Assessment (1) Encephalopathy Code(s): G93.40 - Encephalopathy, unspecified Status: Acute (2) KEVIN (acute kidney injury) Code(s): N17.9 - Acute kidney failure, unspecified Status: Acute (3) Seizure disorder Code(s): G40.909 - Epilepsy, unspecified, not intractable, without status epilepticus Status: Acute - Plan A/P: 1. Encephalopathy: Recent admit 03/03-03/20/18 for similar, improved by the time of d/c, now w/ recurrent confusion/AMS, CT Head w/ no acute findings. Initially lethargic on arrival, ? seizure activity. EEG w/ no epileptic activity on last admit, will repeat EEG. Hold Haldol in light of h/o seizure. 2. Seizure Disorder: Seizure Precautions, resume home medications, check Keppra level, Consult Neurology as needed. 3. KEVIN: Creatinine 1.50, previously 0.94 on 03/18/18, U/a negative for UTI, IVF for hydration, repeat labs in am, monitor I/O. 4. DVT Prophylaxis: SCD/Teds 5. Social work for d/c planning as needed 6. Case discussed w/ ER physician at length, labs/records/imaging reviewed by me
[2018-03-22 00:08] LABS: Baso # (Auto) 0.1 th/mm3 (0.0-0.2); Baso % (Auto) 0.7 % (0.0-2.0); Eos % (Auto) 0.2 % (0.0-4.0); Hematocrit 39.3 % (39.0-51.0); Hemoglobin 13.3 gm/dL (13.0-17.0); Lymph # (Auto) 2.4 th/mm3 (1.0-4.8); Lymph % (Auto) 23.5 % (9.0-44.0); Mean Corpuscular Hemoglobin 29.9 pg (27.0-34.0); Mean Corpuscular Volume 88.1 fL (80.0-100.0); Mean Platelet Volume 8.1 fL (7.0-11.0); Mono % (Auto) 9.4 % (0.0-8.0); Neut # (Auto) 6.7 th/mm3 (1.8-7.7); Neut % (Auto) 66.2 % (16.0-70.0); Platelet Count 206 th/mm3 (150-450); Red Blood Count 4.46 mil/mm3 (4.50-5.90); Red Cell Distribution Width 14.8 % (11.6-17.2); White Blood Count 10.1 th/mm3 (4.0-11.0)
[2018-03-22] MEDS: levETIRAcetam 250 MG Tablet PO SCH ×4 (00:31→23:43)
[2018-03-22] MEDS: Duloxetine 60 MG DR Capsule PO SCH (08:15)
[2018-03-22] MEDS: Senna/Docusate Sodium 8.6/50 MG Tablet PO SCH ×2 (08:15→23:43)
[2018-03-22] MEDS: Sod Chloride 0.9% Inj 1,000 ML IV.CONT SCH ×2 (10:21)
--- NOTE | 2018-03-22 11:12 | MB ---
cc: Bill Morris MD DATE: 03/22/2018 REASON FOR CONSULTATION: Altered mental status and seizures. HISTORY OF PRESENT ILLNESS: This is a 57-year-old male with a past medical history of hypertension, depression, and seizure disorder. He was brought to the emergency room at [facility] by EMS because of altered mental status. He was recently admitted from 03/03/2018 to 03/20/2018 for similar presentation, and he was thought to have an acute encephalopathy due to heatstroke with KEVIN. Imaging of the brain and EEG was unremarkable. He was seen by neurology and psychiatry. He is on Depakote extended-release tablets and Keppra and recently started on Namenda. Psychiatry had him on Cymbalta, trazodone, and quetiapine. The patient was noted to be increasingly confused. The patient during the encounter is seen eating his breakfast and had a voracious appetite. Awake, aware, but not oriented to place or time. He is able to move his extremities. He is calm. No noted difficulty in breathing or swallowing. As per review of the report, he was initially lethargic upon arrival and then became agitated and combative and received Haldol and Ativan. REVIEW OF SYSTEMS: A 12-point review of systems is negative except for what is stated in the HPI. PAST MEDICAL HISTORY: Hypertension, seizure disorder, chronic pain syndrome, and psychiatry diagnosis. PAST SURGICAL HISTORY: Status post carotid artery surgery and a history of CABG. SOCIAL HISTORY: Smokes cigarettes, unable to obtain alcohol or substance abuse history. FAMILY HISTORY: Noncontributory. PHYSICAL EXAMINATION: GENERAL: The patient is not in acute distress, well built and well nourished, eating voraciously during the encounter and around the dictation of this note. HEENT: Atraumatic, normocephalic. Intact hearing and intact vision. CARDIOVASCULAR: Regular rate and rhythm. No chest tenderness to palpation. RESPIRATORY: Clear to auscultation. No added breath sounds. No abnormal breath sounds. GASTROINTESTINAL: Soft abdomen. Not tender. MUSCULOSKELETAL: No clubbing. No cyanosis. SKIN: Tattoos on the body. Tender spot on the right sanchez. He denies trauma. NEUROLOGIC: Awake, alert, oriented to person, not place or time. No signs of meningeal irritation. Pupils equally reacting to light and accommodation. Intact external ocular motility. No nystagmus. No gaze deviation. No facial asymmetry, intact hearing. Motor exam: Moves all extremities equally, grade 5/5 bilateral and symmetrical. No abnormal movement noted. Normal tone. Intact cerebellar signs. Normal [id number]. Reflexes 2+ bilateral and symmetrical. Plantars are bilateral downgoing. Gait is not assessed. PSYCHIATRIC: Calm. No hallucinations. Unable to assess because of confusion. LABORATORY RESULTS: Lab and neurologic investigation revealed CBC unremarkable. CMP revealed a blood glucose on 2 occasions 56 and 67 elevated ammonia. Urine is positive for a trace of ketones. Toxicology is negative. Radiologic Investigations: - CT head was reported with no acute intracranial abnormality. Small old right parietal lobe infarct. - Chest x-ray with no evidence of acute cardiopulmonary disease. IMPRESSION AND PLAN: 1. Encephalopathy. Possible etiology is postictal confusion, metabolic/hyperammonemia, hypoglycemia. 2. Hyperammonemia. 3. Hypoglycemia. 4. Seizure disorder, on Depakote and Keppra. 5. Chronic pain syndrome. PLAN: 1. Neurologic checks 4 hourly. 2. EEG. 3. Hold opiates and sedatives as needed. 4. Seizure precautions. Check Keppra and Depakote level. 5. Continue anticonvulsants at current dosages. 6. DVT prophylaxis. 7. GI prophylaxis. Thank you for the opportunity to participate in the care of your patient. Bill Morris MD [facility]/ , 10:12 AM , 10:24 AM [facility]
--- NOTE | 2018-03-22 13:13 | ECG ---
Date Performed: 03/21/2018 Time Performed: 20:15:30 PTAGE: 57 years EKG: Sinus rhythm INDETERMINATE AXIS LEFT POSTERIOR FASCICULAR BLOCK POSSIBLE ANTERIOR MYOCARDIAL INFARCTION POSSIBLE INFERIOR MYOCARDIAL INFARCTION ABNORMAL ECG PREVIOUS TRACING : 03/18/2018 21.51 DOCTOR: Ty Moya Interpretating Date/Time 03/22/2018 13:09:59
[2018-03-22 13:29] LABS: Baso # (Auto) 0.1 th/mm3 (0.0-0.2); Baso % (Auto) 0.7 % (0.0-2.0); Eos # (Auto) 0.1 th/mm3 (0.0-0.4); Eos % (Auto) 0.7 % (0.0-4.0); Hematocrit 37.9 % (39.0-51.0); Hemoglobin 12.8 gm/dL (13.0-17.0); Lymph # (Auto) 1.8 th/mm3 (1.0-4.8); Lymph % (Auto) 17.4 % (9.0-44.0); Mean Corpuscular HGB Conc 33.9 % (32.0-36.0); Mean Corpuscular Hemoglobin 29.8 pg (27.0-34.0); Mean Corpuscular Volume 87.9 fL (80.0-100.0); Mean Platelet Volume 8.3 fL (7.0-11.0); Mono # (Auto) 0.9 th/mm3 (0.0-0.9); Mono % (Auto) 9.1 % (0.0-8.0); Neut # (Auto) 7.4 th/mm3 (1.8-7.7); Neut % (Auto) 72.1 % (16.0-70.0); Platelet Count 264 th/mm3 (150-450); Red Blood Count 4.31 mil/mm3 (4.50-5.90); Red Cell Distribution Width 14.8 % (11.6-17.2); White Blood Count 10.2 th/mm3 (4.0-11.0)
[2018-03-22 13:48] LABS: Albumin 3.3 g/dL (3.4-5.0); Anion Gap 11 meq/L (5-15); Blood Urea Nitrogen 20 mg/dL (7-18); Calcium 9.1 mg/dL (8.5-10.1); Carbon Dioxide 27.2 meq/L (21.0-32.0); Chloride 105 meq/L (98-107); Glucose,Random 71 mg/dL (74-106); Potassium 3.9 meq/L (3.5-5.1); Sodium 143 meq/L (136-145)
[2018-03-22 13:51] LABS: Alanine Aminotransferase 29 U/L (12-78); Alkaline Phosphatase 81 U/L (45-117); Aspartate Aminotransferase 22 U/L (15-37); Glomerular Filtration Rate 76 mL/min (>89); Total Protein 7.2 g/dL (6.4-8.2)
[2018-03-22] MEDS ORDERED: Sod Chloride 0.9% Inj 1,000 ML IV.CONT SCH (16:15)
--- NOTE | 2018-03-22 16:27 | P.PN ---
Subjective Interval history: Follow-up for encephalopathy/AMS. Patient seen with nurse at bedside. Patient has removed all blankets and clothing. He states his name is Kali Segura, but cannot tell me his last name. He is not no worries that nor does he know the year. He answers questions inappropriately. No reliable history can be obtained from the patient. RN reports the patient has been very confused all day. Physical Exam Vital signs: Vital Signs 03/21/18 19:08 03/21/18 19:52 03/21/18 21:12 Temperature Pulse Rate 94 H Respiratory Rate 20 Blood Pressure 92/63 L Pulse Oximetry 97 95 98 03/21/18 23:23 03/21/18 23:51 03/22/18 01:01 Temperature Pulse Rate 81 77 77 Respiratory Rate 20 18 16 Blood Pressure 117/71 117/71 93/52 L Pulse Oximetry 96 100 98 03/22/18 04:00 03/22/18 08:00 03/22/18 08:04 Temperature 98.4 F 97.3 F L Pulse Rate 89 Respiratory Rate 16 16 Blood Pressure 121/71 Pulse Oximetry 99 99 03/22/18 12:00 Temperature 98.3 F Pulse Rate 84 Respiratory Rate 16 Blood Pressure 84/57 L Pulse Oximetry 97 Intake & Output 03/21/18 03/22/18 03/22/18 18:59 06:59 18:59 Intake Total 1100 / 1100 Balance 1100 / 1100 Weight 72.575 kg Intake: IV 1100 / 1100 NS Inj 1,000 ML @ 200 mls/hr IV 1000 / 1000 .CONT .Q5H JUDY Rx#:[id number] Keppra Inj 250 MG In NS Inj 100 100 / 100 ML @ 400 mls/hr IV.SIG Q12H JUDY Rx#:[id number] Other: # Incontinent Voids 3 Narrative: GENERAL: Well-nourished, well-developed middle-aged male patient in [facility]. SKIN: Warm and dry. No rash. HEENT: Normocephalic. Atraumatic. Pupils equal and round. Mucous membranes pink and moist. NECK: Supple. Trachea midline. CARDIOVASCULAR: Regular rate and rhythm. No murmur appreciated. RESPIRATORY: No accessory muscle use. Clear to auscultation. Breath sounds equal bilaterally. GASTROINTESTINAL: Abdomen soft, non-tender, nondistended. Normoactive bowel sounds x4. MUSCULOSKELETAL: No obvious deformities. Extremities without clubbing, cyanosis , or edema. NEUROLOGICAL: Awake and alert, oriented to first/middle name only. No obvious cranial nerve deficits. Motor grossly within normal limits. Moving all extremities spontaneously. PSYCHIATRIC: Odd mood, insight and judgment limited. Results - Labs CBC & Chem 7: 03/22/18 12:42 03/22/18 12:42 Laboratory Results - last 24 hr 03/21/18 03/21/18 03/21/18 19:43 19:43 19:43 WBC RBC Hgb Hct MCV MCH MCHC RDW Plt Count MPV Neut % (Auto) Lymph % (Auto) King % (Auto) Eos % (Auto) Baso % (Auto) Neut # (Auto) Lymph # (Auto) King # (Auto) Eos # (Auto) Baso # (Auto) WBC Differential Differential Comment Sodium 138 Potassium 4.2 Chloride 104 Carbon Dioxide 23.2 Anion Gap 11 BUN 20 H Creatinine 1.50 H Estimated GFR 48 L POC Glucose Random Glucose 81 Lactic Acid 2.0 Calcium 9.4 Total Bilirubin 0.3 AST 16 ALT 24 Alkaline Phosphatase 68 Ammonia 47 H Troponin I Less than 0.02 L Total Protein 6.7 Albumin 2.9 L Urine Color Urine Clarity Urine pH Ur Specific [place] Urine Protein Urine Glucose (UA) Urine Ketones Urine Occult Blood Urine Nitrate Urine Bilirubin Urine Urobilinogen Ur Leukocyte Esterase Urine RBC Urine WBC Hyaline Casts Urine Mucus Micro UA Comment Ur Microscopic Review Urine Culture Comments Urine Opiates Screen Ur Barbiturates Screen Valproic Acid Ur Amphetamines Screen U Benzodiazepines Scrn Urine Cocaine Screen U Cannabinoids Screen Serum Alcohol Less than 3 03/21/18 03/21/18 03/21/18 21:01 21:02 22:37 WBC RBC Hgb Hct MCV MCH MCHC RDW Plt Count MPV Neut % (Auto) Lymph % (Auto) King % (Auto) Eos % (Auto) Baso % (Auto) Neut # (Auto) Lymph # (Auto) King # (Auto) Eos # (Auto) Baso # (Auto) WBC Differential Differential Comment Sodium Potassium Chloride Carbon Dioxide Anion Gap BUN Creatinine Estimated GFR POC Glucose 56 L 103 Random Glucose Lactic Acid Calcium Total Bilirubin AST ALT Alkaline Phosphatase Ammonia Troponin I Total Protein Albumin Urine Color Urine Clarity Urine pH Ur Specific [place] Urine Protein Urine Glucose (UA) Urine Ketones Urine Occult Blood Urine Nitrate Urine Bilirubin Urine Urobilinogen Ur Leukocyte Esterase Urine RBC Urine WBC Hyaline Casts Urine Mucus Micro UA Comment Ur Microscopic Review Urine Culture Comments Urine Opiates Screen Neg Ur Barbiturates Screen Neg Valproic Acid Ur Amphetamines Screen Neg U Benzodiazepines Scrn Neg Urine Cocaine Screen Neg U Cannabinoids Screen Neg Serum Alcohol 03/21/18 03/21/18 03/22/18 22:37 23:38 07:43 WBC 10.1 RBC 4.46 L Hgb 13.3 Hct 39.3 MCV 88.1 MCH 29.9 MCHC 34.0 RDW 14.8 Plt Count 206 MPV 8.1 Neut % (Auto) 66.2 Lymph % (Auto) 23.5 King % (Auto) 9.4 H Eos % (Auto) 0.2 Baso % (Auto) 0.7 Neut # (Auto) 6.7 Lymph # (Auto) 2.4 King # (Auto) 1.0 H Eos # (Auto) 0.0 Baso # (Auto) 0.1 WBC Differential . Differential Comment Auto diff final Sodium Potassium Chloride Carbon Dioxide Anion Gap BUN Creatinine Estimated GFR POC Glucose 67 L Random Glucose Lactic Acid Calcium Total Bilirubin AST ALT Alkaline Phosphatase Ammonia Troponin I Total Protein Albumin Urine Color Yellow Urine Clarity Clear Urine pH 6.0 Ur Specific [place] 1.012 Urine Protein Negative Urine Glucose (UA) Negative Urine Ketones Trace H Urine Occult Blood Negative Urine Nitrate Negative Urine Bilirubin Negative Urine Urobilinogen Less than 2 Ur Leukocyte Esterase Negative Urine RBC Less than 1 Urine WBC 1 Hyaline Casts 1 Urine Mucus Few H Micro UA Comment Culture not ind Ur Microscopic Review Not Reportable Urine Culture Comments Culture not ind Urine Opiates Screen Ur Barbiturates Screen Valproic Acid Ur Amphetamines Screen U Benzodiazepines Scrn Urine Cocaine Screen U Cannabinoids Screen Serum Alcohol 03/22/18 03/22/18 03/22/18 08:43 12:15 12:42 WBC 10.2 RBC 4.31 L Hgb 12.8 L Hct 37.9 L MCV 87.9 MCH 29.8 MCHC 33.9 RDW 14.8 Plt Count 264 MPV 8.3 Neut % (Auto) 72.1 H Lymph % (Auto) 17.4 King % (Auto) 9.1 H Eos % (Auto) 0.7 Baso % (Auto) 0.7 Neut # (Auto) 7.4 Lymph # (Auto) 1.8 King # (Auto) 0.9 Eos # (Auto) 0.1 Baso # (Auto) 0.1 WBC Differential . Differential Comment Auto diff final Sodium Potassium Chloride Carbon Dioxide Anion Gap BUN Creatinine Estimated GFR POC Glucose 98 79 Random Glucose Lactic Acid Calcium Total Bilirubin AST ALT Alkaline Phosphatase Ammonia Troponin I Total Protein Albumin Urine Color Urine Clarity Urine pH Ur Specific [place] Urine Protein Urine Glucose (UA) Urine Ketones Urine Occult Blood Urine Nitrate Urine Bilirubin Urine Urobilinogen Ur Leukocyte Esterase Urine RBC Urine WBC Hyaline Casts Urine Mucus Micro UA Comment Ur Microscopic Review Urine Culture Comments Urine Opiates Screen Ur Barbiturates Screen Valproic Acid Ur Amphetamines Screen U Benzodiazepines Scrn Urine Cocaine Screen U Cannabinoids Screen Serum Alcohol 03/22/18 03/22/18 12:42 12:42 WBC RBC Hgb Hct MCV MCH MCHC RDW Plt Count MPV Neut % (Auto) Lymph % (Auto) [place] % (Auto) Eos % (Auto) Baso % (Auto) Neut # (Auto) Lymph # (Auto) King # (Auto) Eos # (Auto) Baso # (Auto) WBC Differential Differential Comment Sodium 143 Potassium 3.9 Chloride 105 Carbon Dioxide 27.2 Anion Gap 11 BUN 20 H Creatinine 1.02 Estimated GFR 76 L POC Glucose Random Glucose 71 L Lactic Acid Calcium 9.1 Total Bilirubin 0.4 AST 22 ALT 29 Alkaline Phosphatase 81 Ammonia Troponin I Total Protein 7.2 Albumin 3.3 L Urine Color Urine Clarity Urine pH Ur Specific [place] Urine Protein Urine Glucose (UA) Urine Ketones Urine Occult Blood Urine Nitrate Urine Bilirubin Urine Urobilinogen Ur Leukocyte Esterase Urine RBC Urine WBC Hyaline Casts Urine Mucus Micro UA Comment Ur Microscopic Review Urine Culture Comments Urine Opiates Screen Ur Barbiturates Screen Valproic Acid 46 L Ur Amphetamines Screen U Benzodiazepines Scrn Urine Cocaine Screen U Cannabinoids Screen Serum Alcohol - Imaging Impressions Chest X-Ray 03/21/18 19:09 CONCLUSION: No evidence of acute cardiopulmonary disease. Head CT 03/21/18 19:09 CONCLUSION: 1. No acute intracranial abnormality. 2. Small, old right parietal lobe infarct. . Assessment and Plan - Assessment (1) Encephalopathy Code(s): G93.40 - Encephalopathy, unspecified Status: Acute (2) KEVIN (acute kidney injury) Code(s): N17.9 - Acute kidney failure, unspecified Status: Acute (3) Seizure disorder Code(s): G40.909 - Epilepsy, unspecified, not intractable, without status epilepticus Status: Acute - Plan 57-year-old male with a PMH of HTN, Depression and Seizure Disorder who was brought to the ER by EMS for AMS. Recent admit 03/03-03/20/18 for similar presentation, thought to have Acute Encephalopathy due to Heat Stroke w/ KEVIN, CT Head negative, EEG w/ no epileptic activity, s/p eval by Neurology and Psychiatry, continued on Depakote, Keppra and started on Namenda in addition to Cymbalta, Quetiapine and Trazodone. D/c'd home w/ Daughter who noted pt to be increasingly confused after discharge. Unable to obtain history from patient. Acute encephalopathy: Recent admit 03/03-03/20/18 for similar, improved by the time of d/c, now w/ recurrent confusion/AMS -Repeat CT Head w/ no acute findings. -Initially lethargic on arrival, ? seizure activity. EEG w/ no epileptic activity on last admit, will repeat EEG. -Hold Haldol in light of h/o seizure. -Neurochecks, monitor on telemetry -Consult neurology, appreciate assistance -Consult PT/ST Hyperammonemia, suspected mild hepatic encephalopathy: Ammonia level 47 upon arrival -Give lactulose 30 MLS x1 now -Repeat ammonia level in a.m. Seizure Disorder: Possibly in postictal state, contributing to above -Seizure Precautions -resume home medications including depakote, keppra -IV ativan prn -Consulted neuro, appreciate recommendations -EEG pending KEVIN: Creatinine 1.50, previously 0.94 on 03/18/18 -U/a negative for UTI -Give IVF for hydration -repeat labs in am -monitor I/O. DVT Prophylaxis: SCD/Teds
[2018-03-22] MEDS: Divalproex 500 MG ER Tablet PO SCH (23:43)
[2018-03-22] MEDS: traZODone 100 MG Tablet PO SCH (23:43)
[2018-03-23 07:53] LABS: Baso # (Auto) 0.1 th/mm3 (0.0-0.2); Baso % (Auto) 0.7 % (0.0-2.0); Eos % (Auto) 0.6 % (0.0-4.0); Hematocrit 32.8 % (39.0-51.0); Hemoglobin 11.3 gm/dL (13.0-17.0); Lymph # (Auto) 1.7 th/mm3 (1.0-4.8); Lymph % (Auto) 21.6 % (9.0-44.0); Mean Corpuscular HGB Conc 34.6 % (32.0-36.0); Mean Corpuscular Volume 86.6 fL (80.0-100.0); Mean Platelet Volume 7.6 fL (7.0-11.0); Mono # (Auto) 1.1 th/mm3 (0.0-0.9); Neut # (Auto) 4.8 th/mm3 (1.8-7.7); Neut % (Auto) 63.1 % (16.0-70.0); Platelet Count 226 th/mm3 (150-450); Red Blood Count 3.79 mil/mm3 (4.50-5.90); Red Cell Distribution Width 14.4 % (11.6-17.2); White Blood Count 7.7 th/mm3 (4.0-11.0)
[2018-03-23] MEDS: levETIRAcetam 250 MG Tablet PO SCH ×2 (08:06→20:23)
[2018-03-23] MEDS: Duloxetine 60 MG DR Capsule PO SCH (08:06)
[2018-03-23] MEDS: Senna/Docusate Sodium 8.6/50 MG Tablet PO SCH ×2 (08:06→20:21)
[2018-03-23 08:12] LABS: Anion Gap 7 meq/L (5-15); Aspartate Aminotransferase 19 U/L (15-37); Blood Urea Nitrogen 13 mg/dL (7-18); Calcium 8.9 mg/dL (8.5-10.1); Carbon Dioxide 26.4 meq/L (21.0-32.0); Chloride 107 meq/L (98-107); Glomerular Filtration Rate Greater Than 89 mL/min (>89); Glucose,Random 92 mg/dL (74-106); Potassium 3.4 meq/L (3.5-5.1); Sodium 140 meq/L (136-145)
[2018-03-23 08:13] LABS: Alanine Aminotransferase 25 U/L (12-78)
[2018-03-23 08:15] LABS: Alkaline Phosphatase 68 U/L (45-117); Total Protein 6.6 g/dL (6.4-8.2)
--- NOTE | 2018-03-23 09:17 | P.PN ---
Subjective Interval history: Follow-up for encephalopathy. Patient is more awake, alert today. He is oriented to self in [place] only. He consistently falls asleep throughout conversation. He denies any medical complaints including no fever/ chills, headache, chest pain, shortness of breath, abdominal pain, nausea/ vomiting, or diarrhea. Denies any urinary complaints. He is unable to tell me why he is in the hospital. Discussed with RN, no acute events overnight. Vital signs reviewed and stable. Physical Exam Vital signs: Vital Signs 03/22/18 12:00 03/22/18 16:00 03/22/18 19:36 Temperature 98.3 F 98.6 F 98.6 F Pulse Rate 84 94 H 100 H Respiratory Rate 16 16 20 Blood Pressure 84/57 L 152/87 H 139/76 Pulse Oximetry 97 100 85 L 03/22/18 20:00 03/22/18 23:13 03/23/18 04:00 Temperature 98.5 F 98.6 F Pulse Rate 88 94 H Respiratory Rate 18 18 Blood Pressure 121/74 135/77 Pulse Oximetry 100 94 L 99 03/23/18 07:31 03/23/18 07:34 Temperature 98.3 F Pulse Rate 83 Respiratory Rate 16 Blood Pressure 142/74 H Pulse Oximetry 96 99 Intake & Output 03/22/18 03/23/18 03/23/18 18:59 06:59 18:59 Intake Total 1100 / 1100 750 / 750 750 / 750 Balance 1100 / 1100 750 / 750 750 / 750 Intake: IV 1100 / 1100 750 / 750 NS Inj 1,000 ML @ 84 mls/hr IV. 1000 / 1000 750 / 750 CONT .[id number] JUDY Rx#:[id number] Keppra Inj 250 MG In NS Inj 100 100 / 100 ML @ 400 mls/hr IV.SIG Q12H JUDY Rx#:[id number] Other 750 / 750 Other: Other Intake Source Saline Solution # Voids 3 Narrative: GENERAL: Well-nourished, well-developed middle-aged male patient in [facility]. Very drowsy, falling asleep throughout conversation. SKIN: Warm and dry. No rash. HEENT: Normocephalic. Atraumatic. Pupils equal and round. Mucous membranes pink and moist. CARDIOVASCULAR: Regular rate and rhythm. No murmur appreciated. RESPIRATORY: No accessory muscle use. Clear to auscultation. Breath sounds equal bilaterally. GASTROINTESTINAL: Abdomen soft, non-tender, nondistended. Normoactive bowel sounds x4. MUSCULOSKELETAL: No obvious deformities. Extremities without clubbing, cyanosis , or edema. NEUROLOGICAL: Awake and alert, oriented to first/middle name only. No obvious cranial nerve deficits. Motor grossly within normal limits. Moving all extremities spontaneously. PSYCHIATRIC: Odd mood, insight and judgment limited at this time. Results - Labs CBC & Chem 7: 03/23/18 07:34 03/23/18 07:34 Laboratory Results - last 24 hr 03/22/18 03/22/18 03/22/18 12:15 12:42 12:42 WBC 10.2 RBC 4.31 L Hgb 12.8 L Hct 37.9 L MCV 87.9 MCH 29.8 MCHC 33.9 RDW 14.8 Plt Count 264 MPV 8.3 Neut % (Auto) 72.1 H Lymph % (Auto) 17.4 [place] % (Auto) 9.1 H Eos % (Auto) 0.7 Baso % (Auto) 0.7 Neut # (Auto) 7.4 Lymph # (Auto) 1.8 [place] # (Auto) 0.9 Eos # (Auto) 0.1 Baso # (Auto) 0.1 WBC Differential . Differential Comment Auto diff final Sodium 143 Potassium 3.9 Chloride 105 Carbon Dioxide 27.2 Anion Gap 11 BUN 20 H Creatinine 1.02 Estimated GFR 76 L POC Glucose 79 Random Glucose 71 L Calcium 9.1 Total Bilirubin 0.4 AST 22 ALT 29 Alkaline Phosphatase 81 Ammonia Total Protein 7.2 Albumin 3.3 L Valproic Acid 03/22/18 03/22/18 03/23/18 12:42 17:03 07:34 WBC 7.7 RBC 3.79 L Hgb 11.3 L Hct 32.8 L MCV 86.6 MCH 30.0 MCHC 34.6 RDW 14.4 Plt Count 226 MPV 7.6 Neut % (Auto) 63.1 Lymph % (Auto) 21.6 [place] % (Auto) 14.0 H Eos % (Auto) 0.6 Baso % (Auto) 0.7 Neut # (Auto) 4.8 Lymph # (Auto) 1.7 [place] # (Auto) 1.1 H Eos # (Auto) 0.0 Baso # (Auto) 0.1 WBC Differential . Differential Comment Auto diff final Sodium Potassium Chloride Carbon Dioxide Anion Gap BUN Creatinine Estimated GFR POC Glucose 114 H Random Glucose Calcium Total Bilirubin AST ALT Alkaline Phosphatase Ammonia Total Protein Albumin Valproic Acid 46 L 03/23/18 03/23/18 07:34 07:34 WBC RBC Hgb Hct MCV MCH MCHC RDW Plt Count MPV Neut % (Auto) Lymph % (Auto) [place] % (Auto) Eos % (Auto) Baso % (Auto) Neut # (Auto) Lymph # (Auto) [place] # (Auto) Eos # (Auto) Baso # (Auto) WBC Differential Differential Comment Sodium 140 Potassium 3.4 L Chloride 107 Carbon Dioxide 26.4 Anion Gap 7 BUN 13 Creatinine 0.76 Estimated GFR Greater than 89 POC Glucose Random Glucose 92 Calcium 8.9 Total Bilirubin 0.4 AST 19 ALT 25 Alkaline Phosphatase 68 Ammonia 18 Total Protein 6.6 D Albumin 3.0 L Valproic Acid - Imaging Chest X-Ray 03/21/18 19:09 CONCLUSION: No evidence of acute cardiopulmonary disease. Head CT 03/21/18 19:09 CONCLUSION: 1. No acute intracranial abnormality. 2. Small, old right parietal lobe infarct. . Assessment and Plan - Assessment (1) Encephalopathy Code(s): G93.40 - Encephalopathy, unspecified Status: Acute (2) KEVIN (acute kidney injury) Code(s): N17.9 - Acute kidney failure, unspecified Status: Acute (3) Seizure disorder Code(s): G40.909 - Epilepsy, unspecified, not intractable, without status epilepticus Status: Acute - Plan 57-year-old male with a PMH of HTN, Depression and Seizure Disorder who was brought to the ER by EMS for AMS. Recent admit 03/03-03/20/18 for similar presentation, thought to have Acute Encephalopathy due to Heat Stroke w/ KEVIN, CT Head negative, EEG w/ no epileptic activity, s/p eval by Neurology and Psychiatry, continued on Depakote, Keppra and started on Namenda in addition to Cymbalta, Quetiapine and Trazodone. D/c'd home w/ Daughter who noted pt to be increasingly confused after discharge. Unable to obtain history from patient. Acute encephalopathy: Recent admit 03/03-03/20/18 for similar, improved by the time of d/c, now w/ recurrent confusion/AMS -Repeat CT Head w/ no acute findings. -Initially lethargic on arrival, ? seizure activity. EEG w/ no epileptic activity on last admit -repeat EEG 03/22 - abnormal awake, drowsy EEG. Record contaminated by excessive amount of muscle artifact. There is generalized slowing that may indicate a chronic encephalopathy. This may be secondary to metabolic, medication adverse effect. -Hold Haldol in light of h/o seizure. -Neurochecks, monitor on telemetry -Consult neurology, appreciate assistance -Consult PT/ST, PT recommending rehab -Slowly improving, however not at baseline, still confused and very drowsy Hyperammonemia, suspected mild hepatic encephalopathy: Ammonia level 47 upon arrival -Give lactulose 30 MLS x1 now -Repeat ammonia level 11, resolved Seizure Disorder: Possibly in postictal state, contributing to above -Seizure Precautions -resume home medications including depakote, keppra -Depakote level 46, keppra level pending -IV ativan prn -Consulted neuro, appreciate recommendations -EEG abnormal as above -Appreciate neurology recommendations KEVIN: Creatinine 1.50, previously 0.94 on 03/18/18 -U/a negative for UTI -Given IVF for hydration -repeat labs show much improvement, with Cr 0.76, resolved -monitor I/O. DVT Prophylaxis: SCD/Teds Discharge Planning: Discharge pending further clinical improvement. Not yet ready for discharge.
--- NOTE | 2018-03-23 12:30 | MG ---
cc: Bill Morris MD REFERRING PHYSICIAN: Graciela Oscar MD MEDICAL HISTORY: Alzheimer, bipolar, CVA, hepatitis C, hypertension, seizures, CABG, carotid disease, renal failure, depression, caffeine use, alcohol use, short of breath, high cholesterol, chronic pain. MEDICATIONS: Cymbalta, Keppra, Namenda. DESCRIPTION: The background activity is slow at 5-6 Hz theta superimposed by excessive movement activity and muscle artifact. During the recording, there is contamination with muscle artifact and generalized slowing of the background in the theta range. Photic stimulation did not elicit a driving response. There were no epileptiform discharges or electrographic seizures seen. No asymmetry of the background. INTERPRETATION: This is an abnormal awake, drowsy EEG. Record contaminated by excessive amount of muscle artifact. There is generalized slowing that may indicate an encephalopathy. This may be secondary to metabolic, medication adverse effect. Absence of electrographic seizures or of epileptiform discharges does not exclude a diagnosis of epilepsy. Clinical correlation is recommended. MD BRISEIDA Gay/carmelo , 08:11 AM , 12:30 PM MIGUEL ANGEL
[2018-03-23] MEDS: Acetaminophen 325 MG Tablet PO PRN (15:32)
--- NOTE | 2018-03-23 16:49 | XR ---
EXAM DATE: 03/23/2018 12:00 AM EDT AGE/SEX: 57 years / Male INDICATIONS: Pain. CLINICAL DATA: This is the patient's initial encounter. Patient reports that signs and symptoms have been present for 3 days and indicates a pain score of 5/10. MEDICAL/SURGICAL HISTORY: . Cardiovascular disease. . CABG. Fusion, thoracic. COMPARISON: No prior exams available for comparison. FINDINGS: Bony structures are intact and in normal alignment. Joints are intact without dislocation. There are some degenerative changes at the ankle joint. There is good alignment at the mortise joint. Osseous density is normal. Nonspecific soft tissue swelling around the ankle.. No radiopaque foreign bodies seen. CONCLUSION: 1. Nonspecific soft tissue swelling around the ankle. 2. Mild degenerative changes. 3. No acute fracture or joint dislocation. Electronically signed by: Cameron Shah MD 03/23/2018 4:47 PM EDT
[2018-03-23] MEDS: Divalproex 500 MG ER Tablet PO SCH (20:21)
[2018-03-23] MEDS: traZODone 100 MG Tablet PO SCH (20:22)
--- NOTE | 2018-03-24 07:25 | P.PNNEU ---
Subjective Subjective Comments: no sz overnoc Active Medications: Active Medications Acetaminophen (Tylenol) 650 mg PO Q4H PRN PRN Reason: Temp > 100.4 Last Admin: 03/23/18 15:32 Dose: 650 mg Al Hydroxide/Mg Hydroxide (Milk Of Magnesia Liq) 30 ml PO Q12H PRN PRN Reason: Mild Constipation Aspirin (Aspirin) 81 mg PO DAILY [facility] Bisacodyl (Dulcolax Supp) 10 mg RECTAL DAILY PRN PRN Reason: SEVERE CONSITIPATION Divalproex Sodium (Depakote Er) 500 mg PO [facility] Last Admin: 03/23/18 20:21 Dose: 500 mg Duloxetine HCl (Cymbalta) 60 mg PO DAILY [facility] Last Admin: 03/23/18 08:06 Dose: 60 mg Lactulose (Lactulose Liq) 30 ml PO DAILY PRN PRN Reason: SEVERE CONSITIPATION Levetiracetam (Keppra) 250 mg PO BID [facility] Last Admin: 03/23/18 20:23 Dose: 250 mg Lorazepam (Ativan Inj) 1 mg IV.PUSH Q4H PRN PRN Reason: seizure only Last Admin: 03/22/18 15:25 Dose: 1 mg Memantine (Namenda) 5 mg PO BID [facility] Last Admin: 03/23/18 20:23 Dose: 5 mg Ondansetron HCl (Zofran Inj) 4 mg IV.PUSH Q6H PRN PRN Reason: NAUSEA OR VOMITING Senna/Docusate Sodium (Brooke-Colace) 1 tab PO BID [facility] Last Admin: 03/23/18 20:21 Dose: 1 tab Sennosides (Senokot) 17.2 mg PO Q12H PRN PRN Reason: Moderate Constipation Sodium Chloride (Ns Flush) 2 ml IV.FLUSH PRN PRN PRN Reason: FLUSH AFTER USING IV ACCESS Trazodone HCl (Desyrel) 300 mg PO [facility] Last Admin: 03/23/18 20:22 Dose: 300 mg Allergies/Adverse Reactions: Allergies Allergy/AdvReac Type Severity Reaction Status Date / Time acetaminophen AdvReac Intermediate pt has Verified 02/19/18 03:02 hepatitis c told not to take Physical Exam Vital signs: Vital Signs 03/23/18 07:31 03/23/18 07:34 03/23/18 11:33 Temperature 98.3 F Pulse Rate 83 89 Respiratory Rate 16 16 Blood Pressure 142/74 H 134/81 Pulse Oximetry 96 99 98 03/23/18 16:02 03/23/18 19:07 03/24/18 00:00 Temperature 98.8 F 98.6 F Pulse Rate 96 H 88 89 Respiratory Rate 16 18 18 Blood Pressure 133/83 116/72 105/62 Pulse Oximetry 100 98 97 03/24/18 03:57 Temperature 99.5 F Pulse Rate 100 H Respiratory Rate 18 Blood Pressure 117/72 Pulse Oximetry 97 Intake & Output 03/23/18 03/24/18 03/24/18 18:59 06:59 18:59 Intake Total 1000 / 1000 Output Total 1400 / 1400 Balance 1000 / 1000 -1400 / -1400 Weight 72.58 kg Intake: IV 1000 / 1000 NS Inj 1,000 ML @ 84 mls/hr IV. 1000 / 1000 CONT .[id number] JUDY Rx#:[id number] Output: Urine 1400 / 1400 Narrative: vff awake alert 5/5t/o [facility] 2017 Objective Laboratory Results - last 24 hr 03/23/18 03/23/18 03/23/18 07:34 07:34 07:34 WBC 7.7 RBC 3.79 L Hgb 11.3 L Hct 32.8 L MCV 86.6 MCH 30.0 MCHC 34.6 RDW 14.4 Plt Count 226 MPV 7.6 Neut % (Auto) 63.1 Lymph % (Auto) 21.6 [place] % (Auto) 14.0 H Eos % (Auto) 0.6 Baso % (Auto) 0.7 Neut # (Auto) 4.8 Lymph # (Auto) 1.7 [place] # (Auto) 1.1 H Eos # (Auto) 0.0 Baso # (Auto) 0.1 WBC Differential . Differential Comment Auto diff final Sodium 140 Potassium 3.4 L Chloride 107 Carbon Dioxide 26.4 Anion Gap 7 BUN 13 Creatinine 0.76 Estimated GFR Greater than 89 Random Glucose 92 Calcium 8.9 Total Bilirubin 0.4 AST 19 ALT 25 Alkaline Phosphatase 68 Ammonia 18 Total Protein 6.6 D Albumin 3.0 L Review/Management - Review/Management Plan: imp mri old r mca cva eeg neg labs ok vpa 46 plan recheck vpa check echo andholter with old cva tele asa 81mg if echo nl and holter done can dc
[2018-03-24] MEDS: levETIRAcetam 250 MG Tablet PO SCH ×2 (08:39→20:25)
[2018-03-24] MEDS: Senna/Docusate Sodium 8.6/50 MG Tablet PO SCH ×2 (08:39→20:25)
--- NOTE | 2018-03-24 10:18 | P.PN ---
Subjective Interval history: Follow-up for encephalopathy. Patient is much more awake and alert today, oriented to self, place, and year. He is sitting upright in bed eating breakfast. He complains of some right ankle pain, requesting an Dionicio bandage. He denies any specific medical complaints including no fever/chills, lightheadedness, dizziness, chest pain, shortness of breath, or abdominal complaints. He is tolerating oral intake. He is unable to tell me what happened or why he has been so confused over the past few days. He states he feels much better now. He states he currently lives in a home with his ex- and her new boyfriend in one room, and him and his daughter in another room. PT has recommended rehab, patient prefers to go home, requested repeat PT evaluation today. Physical Exam Vital signs: Vital Signs 03/23/18 11:33 03/23/18 16:02 03/23/18 19:07 Temperature 98.8 F Pulse Rate 89 96 H 88 Respiratory Rate 16 16 18 Blood Pressure 134/81 133/83 116/72 Pulse Oximetry 98 100 98 03/24/18 00:00 03/24/18 03:57 03/24/18 07:46 Temperature 98.6 F 99.5 F 99.1 F Pulse Rate 89 100 H 89 Respiratory Rate 18 18 18 Blood Pressure 105/62 117/72 103/64 Pulse Oximetry 97 97 96 Intake & Output 03/23/18 03/24/18 03/24/18 18:59 06:59 18:59 Intake Total 1000 / 1000 Output Total 1400 / 1400 Balance 1000 / 1000 -1400 / -1400 Weight 72.58 kg Intake: IV 1000 / 1000 NS Inj 1,000 ML @ 84 mls/hr IV. 1000 / 1000 CONT .[id number] COUNT INCLUDES [facility] Rx#:[id number] Output: Urine 1400 / 1400 Narrative: GENERAL: Well-nourished, well-developed middle-aged male patient in [place]. Sitting upright in bed eating breakfast, mentation much improved. SKIN: Warm and dry. No rash. HEENT: Normocephalic. Atraumatic. Pupils equal and round. Mucous membranes pink and moist. CARDIOVASCULAR: Regular rate and rhythm. No murmur appreciated. RESPIRATORY: No accessory muscle use. Clear to auscultation. Breath sounds equal bilaterally. GASTROINTESTINAL: Abdomen soft, non-tender, nondistended. Normoactive bowel sounds x4. MUSCULOSKELETAL: No obvious deformities. Extremities without clubbing, cyanosis , or edema. NEUROLOGICAL: Awake and alert, oriented to first/middle name only. No obvious cranial nerve deficits. Motor grossly within normal limits. Moving all extremities spontaneously. PSYCHIATRIC: Odd mood, insight and judgment fair. Results - Labs CBC & Chem 7: 03/23/18 07:34 03/23/18 07:34 Laboratory Results - last 24 hr 03/24/18 06:58 Valproic Acid 22 L - Imaging Impressions Chest X-Ray 03/21/18 19:09 CONCLUSION: No evidence of acute cardiopulmonary disease. Head CT 03/21/18 19:09 CONCLUSION: 1. No acute intracranial abnormality. 2. Small, old right parietal lobe infarct. . Ankle X-Ray 03/23/18 00:00 CONCLUSION: 1. Nonspecific soft tissue swelling around the ankle. 2. Mild degenerative changes. 3. No acute fracture or joint dislocation. Assessment and Plan - Assessment (1) Encephalopathy Code(s): G93.40 - Encephalopathy, unspecified Status: Acute (2) KEVIN (acute kidney injury) Code(s): N17.9 - Acute kidney failure, unspecified Status: Acute (3) Seizure disorder Code(s): G40.909 - Epilepsy, unspecified, not intractable, without status epilepticus Status: Acute - Plan 57-year-old male with a PMH of HTN, Depression and Seizure Disorder who was brought to the ER by EMS for AMS. Recent admit 03/03-03/20/18 for similar presentation, thought to have Acute Encephalopathy due to Heat Stroke w/ KEVIN, CT Head negative, EEG w/ no epileptic activity, s/p eval by Neurology and Psychiatry, continued on Depakote, Keppra and started on Namenda in addition to Cymbalta, Quetiapine and Trazodone. D/c'd home w/ Daughter who noted pt to be increasingly confused after discharge. Unable to obtain history from patient. Acute encephalopathy: Recent admit 03/03-03/20/18 for similar, improved by the time of d/c, now w/ recurrent confusion/AMS -Repeat CT Head w/ no acute findings. -Initially lethargic on arrival, ? seizure activity. EEG w/ no epileptic activity on last admit -repeat EEG 03/22 - abnormal awake, drowsy EEG. Record contaminated by excessive amount of muscle artifact. There is generalized slowing that may indicate a chronic encephalopathy. This may be secondary to metabolic, medication adverse effect. -Holding Haldol in light of h/o seizure. -Neurochecks, monitor on telemetry -Consult neurology, appreciate assistance -Consult PT/ST, PT recommending rehab, requesting reevaluation as patient is much more alert today -Much improved, currently oriented to self/place/year. -Per neurology, checking echo/Holter, and can be discharged after completed Hyperammonemia, suspected mild hepatic encephalopathy: Ammonia level 47 upon arrival -Give lactulose 30 MLS x1 now -Repeat ammonia level 11, resolved Seizure Disorder: Possibly in postictal state, contributing to above -Seizure Precautions -resume home medications including depakote, keppra -Depakote level 46, keppra level pending -IV ativan prn -Consulted neuro, appreciate recommendations -EEG abnormal as above -Appreciate neurology recommendations KEVIN: Creatinine 1.50, previously 0.94 on 03/18/18 -U/a negative for UTI -Given IVF for hydration -repeat labs show much improvement, with Cr 0.76, resolved -monitor I/O. DVT Prophylaxis: SCD/Teds Discharge Planning: Needs echo and Holter. Holter monitor was placed 03/24, to be completed on 03/25. PT initially recommending rehab, unable to place due to insurance barriers, requested repeat PT evaluation as patient's mentation is much improved. Hopefully discharge 03/25 to home. Case management to assist with discharge planning.
--- NOTE | 2018-03-24 12:39 | ECHRPT ---
Indication: CVA/TIA CONCLUSIONS Normal left ventricular size. Wall thickness is measured at the upper limits of normal. The left ventricular systolic function is normal with an estimated ejection fraction in the range of 55-60%. Trace mitral valve regurgitation. There is trace tricuspid valve regurgitation. The estimated pulmonary arterial pressure is 19 mmHg. BP: / HR: Rhythm: Technical Quality: FINDINGS LEFT VENTRICLE Normal left ventricular size. Wall thickness is measured at the upper limits of normal. The left ventricular systolic function is normal with an estimated ejection fraction in the range of 55-60%. RIGHT VENTRICLE Normal right ventricular size and systolic function. LEFT ATRIUM The left atrial size is normal. RIGHT ATRIUM The right atrial size is normal. ATRIAL SEPTUM Normal atrial septal thickness without atrial level shunting by limited color doppler interrogation. AORTA The aortic root and proximal ascending aorta are normal in size on limited imaging. MITRAL VALVE Trace mitral valve regurgitation. AORTIC VALVE Trileaflet aortic valve. No aortic valve stenosis or regurgitation. TRICUSPID VALVE There is trace tricuspid valve regurgitation. The estimated pulmonary arterial pressure is 19 mmHg. PULMONARY VALVE The pulmonary valve is not well visualized. VESSELS The inferior vena cava is normal in size. PERICARDIUM No pericardial effusion. Rita Arroyo MD (Electronically Signed) Final Date:24 March 2018 12:38
[2018-03-24] MEDS: Divalproex 500 MG ER Tablet PO SCH (20:24)
[2018-03-24] MEDS: traZODone 100 MG Tablet PO SCH (20:24)
[2018-03-24] MEDS: Acetaminophen 325 MG Tablet PO PRN (20:25)
[2018-03-24] MEDS ORDERED: Sodium Chlor 0.9% Inj 500 ML IV.SIG SCH (22:00)
[2018-03-24] MEDS ORDERED: Melatonin 5 MG Tablet PO PRN (22:06)
[2018-03-25 07:23] VITALS: O2SAT 98
--- NOTE | 2018-03-25 07:27 | P.PNNEU ---
Subjective Subjective Comments: no more sz Active Medications: Active Medications Acetaminophen (Tylenol) 650 mg PO Q4H PRN PRN Reason: Temp > 100.4 Last Admin: 03/24/18 20:25 Dose: 650 mg Al Hydroxide/Mg Hydroxide (Milk Of Magnesia Liq) 30 ml PO Q12H PRN PRN Reason: Mild Constipation Aspirin (Ecotrin) 81 mg PO DAILY [facility] Last Admin: 03/24/18 08:39 Dose: 81 mg Bisacodyl (Dulcolax Supp) 10 mg RECTAL DAILY PRN PRN Reason: SEVERE CONSITIPATION Divalproex Sodium (Depakote Er) 500 mg PO HS [facility] Last Admin: 03/24/18 20:24 Dose: 500 mg Duloxetine HCl (Cymbalta) 60 mg PO DAILY [facility] Last Admin: 03/23/18 08:06 Dose: 60 mg Sodium Chloride (Ns Inj) 500 mls @ 0 mls/hr IV.SIG BOLUS [facility] Lactulose (Lactulose Liq) 30 ml PO DAILY PRN PRN Reason: SEVERE CONSITIPATION Levetiracetam (Keppra) 250 mg PO BID [facility] Last Admin: 03/24/18 20:25 Dose: 250 mg Lorazepam (Ativan Inj) 1 mg IV.PUSH Q4H PRN PRN Reason: seizure only Last Admin: 03/22/18 15:25 Dose: 1 mg Melatonin (Melatonin) 5 mg PO HS PRN PRN Reason: INSOMNIA Last Admin: 03/24/18 22:24 Dose: 5 mg Memantine (Namenda) 5 mg PO BID [facility] Last Admin: 03/24/18 20:24 Dose: 5 mg Ondansetron HCl (Zofran Inj) 4 mg IV.PUSH Q6H PRN PRN Reason: NAUSEA OR VOMITING Senna/Docusate Sodium (Brooke-Colace) 1 tab PO BID [facility] Last Admin: 03/24/18 20:25 Dose: 1 tab Sennosides (Senokot) 17.2 mg PO Q12H PRN PRN Reason: Moderate Constipation Sodium Chloride (Ns Flush) 2 ml IV.FLUSH PRN PRN PRN Reason: FLUSH AFTER USING IV ACCESS Trazodone HCl (Desyrel) 300 mg PO HS [facility] Last Admin: 03/24/18 20:24 Dose: 300 mg Allergies/Adverse Reactions: Allergies Allergy/AdvReac Type Severity Reaction Status Date / Time acetaminophen AdvReac Intermediate pt has Verified 02/19/18 03:02 hepatitis c told not to take Physical Exam Vital signs: Vital Signs 03/24/18 07:46 03/24/18 12:43 03/24/18 16:04 Temperature 99.1 F 98.4 F 98.5 F Pulse Rate 89 83 86 Respiratory Rate 18 Blood Pressure 103/64 102/68 103/62 Pulse Oximetry 96 95 03/24/18 20:00 03/24/18 22:01 03/25/18 04:00 Temperature 99.3 F 98.3 F Pulse Rate 92 H 79 Respiratory Rate 20 20 Blood Pressure 71/52 L 104/58 L 104/65 Pulse Oximetry 95 96 Intake & Output 03/24/18 03/25/18 03/25/18 18:59 06:59 18:59 Intake Total 600 / 600 Output Total 820 / 820 Balance 600 / 600 -820 / -820 Weight 72.58 kg Intake: Oral 600 / 600 Output: Urine 820 / 820 Other: # Voids 2 Date of Last Bowel Movement 03/24/18 Narrative: awake alert Objective Laboratory Results - last 24 hr 03/24/18 06:58 Valproic Acid 22 L Review/Management - Review/Management Plan: imp mri old r mca cva eeg neg labs ok vpa 46 plan recheck vpa check echo andholter with old cva tele asa 81mg if echo nl and holter done can dc 03/25/18 doing well echo nl vpa 22 us neg 07/04 plan is inc keppra to 500 bid and inc vpa to 750 hs ok to dc when holter off
[2018-03-25] MEDS: Senna/Docusate Sodium 8.6/50 MG Tablet PO SCH (08:58)
[2018-03-25] MEDS ORDERED: levETIRAcetam 250 MG Tablet PO SCH (09:00)
[2018-03-25 09:29] VITALS: RESP 20
[2018-03-25 11:39] VITALS: BP 92/58; PULSE 79; TEMP 98.7
--- NOTE | 2018-03-25 12:36 | P.PN ---
Subjective Interval history: Patient is seen lying quietly in bed. He tells me that he would like to go home as soon as possible. He has had no episodes of dizziness or confusion. No chest pain or shortness of breath. No nausea vomiting or diarrhea. He does tell me that he is needed frequent adjustments of his seizure medications over the years. His compliance with his medication is questionable Physical Exam Vital signs: Vital Signs 03/24/18 12:43 03/24/18 16:04 03/24/18 20:00 Temperature 98.4 F 98.5 F 99.3 F Pulse Rate 83 86 92 H Respiratory Rate 18 18 20 Blood Pressure 102/68 103/62 71/52 L Pulse Oximetry 95 95 03/24/18 22:01 03/25/18 04:00 03/25/18 07:20 Temperature 98.3 F 99.2 F Pulse Rate 79 80 Respiratory Rate 20 18 Blood Pressure 104/58 L 104/65 81/56 L Pulse Oximetry 96 98 03/25/18 09:27 03/25/18 11:37 Temperature 98.5 F 98.7 F Pulse Rate 72 79 Respiratory Rate 20 20 Blood Pressure 83/60 L 92/58 L Pulse Oximetry 98 98 Intake & Output 03/24/18 03/25/18 03/25/18 18:59 06:59 18:59 Intake Total 600 / 600 Output Total 820 / 820 Balance 600 / 600 -820 / -820 Weight 72.58 kg Intake: Oral 600 / 600 Output: Urine 820 / 820 Other: # Voids 2 Date of Last Bowel Movement 03/24/18 Narrative: GENERAL: Well-nourished, well-developed adult male in no obvious distress. SKIN: Warm and dry. HEAD: Atraumatic. Normocephalic. CARDIOVASCULAR: Regular rate and rhythm. RESPIRATORY: No accessory muscle use. Clear to auscultation. Breath sounds equal bilaterally. GASTROINTESTINAL: Abdomen soft, non-tender, non-distended. Positive bowel sounds. MUSCULOSKELETAL: Extremities without clubbing, cyanosis, or edema. No obvious deformities. NEUROLOGICAL: Awake and alert. No obvious cranial nerve deficits. Motor grossly within normal limits. Normal speech. Results - Labs CBC & Chem 7: 03/23/18 07:34 03/23/18 07:34 Laboratory Results - last 24 hr 03/25/18 06:25 Valproic Acid 52 Assessment and Plan - Assessment (1) Encephalopathy Code(s): G93.40 - Encephalopathy, unspecified Status: Acute (2) KEVIN (acute kidney injury) Code(s): N17.9 - Acute kidney failure, unspecified Status: Acute (3) Seizure disorder Code(s): G40.909 - Epilepsy, unspecified, not intractable, without status epilepticus Status: Inactive - Plan 57-year-old male with a PMH of HTN, Depression and Seizure Disorder who was brought to the ER by EMS for AMS. Recent admit 03/03-03/20/18 for similar presentation, thought to have Acute Encephalopathy due to Heat Stroke w/ KEVIN, CT Head negative, EEG w/ no epileptic activity, s/p eval by Neurology and Psychiatry, continued on Depakote, Keppra and started on Namenda in addition to Cymbalta, Quetiapine and Trazodone. D/c'd home w/ Daughter who noted pt to be increasingly confused after discharge. Unable to obtain history from patient. Acute encephalopathy: Recent admit 03/03-03/20/18 for similar, improved by the time of d/c, now w/ recurrent confusion/AMS -Repeat CT Head w/ no acute findings. -Initially lethargic on arrival, ? seizure activity. EEG w/ no epileptic activity on last admit -repeat EEG 03/22 - abnormal awake, drowsy EEG. Record contaminated by excessive amount of muscle artifact. There is generalized slowing that may indicate a chronic encephalopathy. This may be secondary to metabolic, medication adverse effect. -Holding Haldol in light of h/o seizure. -Neurochecks, monitor on telemetry -Consult PT/ST, PT recommending rehab, requesting reevaluation as patient is much more alert today -Much improved, currently oriented to self/place/year. -Per neurology, checking echo/Holter, and can be discharged after completed Hyperammonemia, suspected mild hepatic encephalopathy: Ammonia level 47 upon arrival -Give lactulose 30 MLS x1 now -Repeat ammonia level 11, resolved Seizure Disorder: Possibly in postictal state, contributing to above -Seizure Precautions -resume home medications including depakote, keppra -Depakote level 46, keppra level pending -IV ativan prn -Consulted neuro, appreciate recommendations -EEG abnormal as above -Appreciate neurology recommendations KEVIN: Creatinine 1.50, previously 0.94 on 03/18/18 -U/a negative for UTI -Given IVF for hydration -repeat labs show much improvement, with Cr 0.76, resolved -monitor I/O. DVT Prophylaxis: SCD/Teds Discharge Planning: Needs echo and Holter. Holter monitor was placed 03/24, to be completed on 03/25. PT initially recommending rehab, unable to place due to insurance barriers, requested repeat PT evaluation as patient's mentation is much improved. Hopefully discharge 03/25 to home. Case management to assist with discharge planning.
--- NOTE | 2018-03-25 12:47 | P.DS ---
Date of admission: 03/21/18 23:57 Primary care physician: UNKNOWN Attending physician on discharge: Sonia Bell Anticipated date of discharge: 03/25/18 Brief History from admission: This is a 57-year-old male with a PMH of HTN, Depression and Seizure Disorder who was brought to the ER by EMS for AMS. Recent admit 03/03-03/20/18 for similar presentation, thought to have Acute Encephalopathy due to Heat Stroke w / KEVIN, CT Head negative, EEG w/ no epileptic activity, s/p eval by Neurology and Psychiatry, continued on Depakote, Keppra and started on Namenda in addition to Cymbalta, Quetiapine and Trazodone. D/c'd home w/ Daughter who noted pt to be increasingly confused today. Unable to obtain history from patient. On arrival, BP 92/63, HR 94, O2 sat 97% on RA. CBC unremarkable. Creatinine 1.50, previously 0.94 on 04-03. Troponin negative. Ammonia 47. LFTs normal. CT Head with no acute findings. CXR negative. While in ER, pt initially lethargic, later became agitated/combative, requiring Haldol and Ativan, now calm, but remains confused. DS: Diagnosis - Discharge Diagnosis (1) Encephalopathy Status: Resolved (2) KEVIN (acute kidney injury) Status: Resolved (3) Seizure disorder Status: Chronic DS: Medications - Discharge Medications Prescriptions: divalproex [Depakote ER] 750 mg PO HS #30 tab levetiracetam [Keppra] 500 mg PO BID #60 tab DS: Summary Hospital Course: 57-year-old male with a PMH of HTN, Depression and Seizure Disorder who was brought to the ER by EMS for AMS. Recent admit 03/03-03/20/18 for similar presentation, thought to have Acute Encephalopathy due to Heat Stroke w/ KEVIN, CT Head negative, EEG w/ no epileptic activity, s/p eval by Neurology and Psychiatry, continued on Depakote, Keppra and started on Namenda in addition to Cymbalta, Quetiapine and Trazodone. D/c'd home w/ Daughter who noted pt to be increasingly confused after discharge. Patient was evaluated for acute encephalopathy. Repeat CT Head w/ no acute findings. Echo and Holter completed. Repeat EEG 03/22 - abnormal awake, drowsy EEG. Record contaminated by excessive amount of muscle artifact. There is generalized slowing that may indicate a chronic encephalopathy. This may be secondary to metabolic, medication adverse effect. Patient improved and was AOx3. Evaluated by neurology who increased Keppra and valproic acid; recommending outpatient follow-up. He was also found to have hyperammonemia, suspected mild hepatic encephalopathy -ammonia level improved with treatment. Also had acute kidney injury which resolved with IVF. - Time Spent with Patient Total time spent providing and/or coordinating discharge services: Less than 30 minutes Exam Vital signs: Vital Signs 03/24/18 12:43 03/24/18 16:04 03/24/18 20:00 Temperature 98.4 F 98.5 F 99.3 F Pulse Rate 83 86 92 H Respiratory Rate 18 18 20 Blood Pressure 102/68 103/62 71/52 L Pulse Oximetry 95 95 03/24/18 22:01 03/25/18 04:00 03/25/18 07:20 Temperature 98.3 F 99.2 F Pulse Rate 79 80 Respiratory Rate 20 18 Blood Pressure 104/58 L 104/65 81/56 L Pulse Oximetry 96 98 03/25/18 09:27 03/25/18 11:37 Temperature 98.5 F 98.7 F Pulse Rate 72 79 Respiratory Rate 20 20 Blood Pressure 83/60 L 92/58 L Pulse Oximetry 98 98 Intake & Output 03/24/18 03/25/18 03/25/18 18:59 06:59 18:59 Intake Total 600 / 600 Output Total 820 / 820 Balance 600 / 600 -820 / -820 Weight 72.58 kg Intake: Oral 600 / 600 Output: Urine 820 / 820 Other: # Voids 2 Date of Last Bowel Movement 03/24/18 Narrative: GENERAL: Well-nourished, well-developed adult male in no obvious distress. SKIN: Warm and dry. HEAD: Atraumatic. Normocephalic. CARDIOVASCULAR: Regular rate and rhythm. RESPIRATORY: No accessory muscle use. Clear to auscultation. Breath sounds equal bilaterally. GASTROINTESTINAL: Abdomen soft, non-tender, non-distended. Positive bowel sounds. MUSCULOSKELETAL: Extremities without clubbing, cyanosis, or edema. No obvious deformities. NEUROLOGICAL: Awake and alert. No obvious cranial nerve deficits. Motor grossly within normal limits. Normal speech. Results Procedures completed during hospitalization: none Labs on day of discharge: Labs from last 24 hours 03/25/18 06:25 Valproic Acid 52 - Impressions ITS Impressions Chest X-Ray 03/21/18 19:09 CONCLUSION: No evidence of acute cardiopulmonary disease. Head CT 03/21/18 19:09 CONCLUSION: 1. No acute intracranial abnormality. 2. Small, old right parietal lobe infarct. . Ankle X-Ray 03/23/18 00:00 CONCLUSION: 1. Nonspecific soft tissue swelling around the ankle. 2. Mild degenerative changes. 3. No acute fracture or joint dislocation. Discharge Plan - Discharge Disposition Patient Disposition: Discharge Home - Discharge Condition Condition: Stable - Discharge Order Discharge Orders: Discharge Order (Routine); Ordered 03/25/18 Ordered By: Stephie Santos - Discharge Details Discharge Comment: Patient can be discharged if Holter monitor results are normal. - Physicians Team Primary Care Provider: UNKNOWN, Attending Provider: Sonia Bell Other Providers: Bill Morris MD ; [employer]
[2018-03-25] MEDS ORDERED: Divalproex 250 MG ER Tablet PO SCH (21:00)
--- NOTE | 2018-03-26 19:29 | HM ---
Date Performed: 03/24/2018 Time Performed: 12:20:00 HOOKUP DATE: 03/24/18 12:20:00 PM Mon ANALYSIS START TIME: 03/24/2018 12:25:00 PM ANALYSIS END TIME: 03/25/2018 10:55:19 AM PATIENT AGE: 57 PATIENT HEIGHT PATIENT WEIGHT DRUG LIST PATIENT DIAGNOSIS: ENCEPHALOPATHY DEHYDRATION HYPERAMMONEMIA TEST NARRATIVE: The patient's average heart rate was 84 BPM. Heart rates greater than 120 B PM were noted < 1% of the time. No episodes of bradycardia were noted. No pauses exceeding 2.0 s econds were noted. 1 ventricular ectopics, which represented < 1% of the total beat count, were n oted. The highest ventricular ectopic frequency occurred from 07:00 AM to 08:00 AM Tue. During this time 1 VE(s) occurred. Ventricular ectopics were observed as 1 isolated beat(s) only. No couplets or runs were noted. 6 supraventricular ectopics, which represented < 1% of the total beat count, were noted. The highest supraventricular ectopic frequency occurred from 06:00 AM to 07:00 AM Tue. During this time 2 SVE(s) occurred. No episodes of ST depression (defined as -1.0 mm or more) wer e noted in channel 1. No episodes of ST depression (defined as -1.0 mm or more) were noted in channe l 2. No episodes of ST depression (defined as -1.0 mm or more) were noted in channel 3. TEST INTERPRETATION: Sinus rhythm and rare sinus tachycardia minor ectopy Signed by : Connor Lomeli
== END 2018-03-25 13:57 | disposition left against medical advice (07) ==
LOC: NEPC 18:43 → NEDA 18:43 → NEPHCDU 03-22 00:58
PROVIDERS: ADMIT Internal Medicine; ATTEND Internal Medicine